=== PATIENT | female | born 1955 | race Caucasian/White ===

== ENCOUNTER → 2017-11-26 17:01 | Outpatient (CLI) | payer BC, SELFPAY ==
[2017-02-23 13:18] VITALS: BMI 26.2
[2017-02-23 16:57] VITALS: BP 128/72
[2017-11-26 18:34] LABS: Hematocrit 39.4 % (37-47); Hemoglobin 12.7 g/dl (12.0-15.0); Mean Corp Hgb Conc 32.2 g/gl (32-36); Mean Corpuscular Hgb 29.3 pg (27.0-32.0); Mean Corpuscular Volume 90.8 fL (81-99); Mean Platelet Vol. 10.5 fl (6.2-12.0); Platelet Count 278 K/mm3 (150-450); RBC Distribution Width CV 14.1 % (11.6-14.6); RBC Distribution Width SD 46.7 fl (35.1-43.9); Red Blood Count 4.34 M/mm3 (4.2-5.4); White Blood Count 7.7 K/mm3 (4.4-11.0)
[2017-11-26 18:39] LABS: Scan Indicated on CBC? Y/N NO
[2017-11-26 18:43] LABS: ALB/GLOB Ratio 1.2 RATIO (0.9-2.4); AST(SGOT) 14 U/L (15-37); Alanine Aminotransfer ALT/SGPT 25 U/L (13-56); Albumin, Serum 3.9 g/dL (3.2-5.0); Alkaline Phosphatase 79 U/L (45-117); Anion Gap 7 (5-15); BUN 15 mg/dL (7-18); BUN/Creat Ratio 23.1 RATIO (10-20); CRP < 2.90 mg/L (0.0-3.0); Chloride 103 mmol/L (98-107); Creatinine, Serum 0.65 mg/dL (0.55-1.02); EST Glomerular Filtration Rate 99 mL/min (>60); Est Glom Filt Rate - Afr Amer 120 mL/min (>60); Globulin 3.3 g/dL (2.2-4.2); Glucose 94 mg/dL (74-106); Potassium 3.8 mmol/L (3.5-5.1); Protein, Total 7.2 g/dL (6.4-8.2); Sodium Level 138 mmol/L (136-145)
== END ==
PROVIDERS: Family Provider Family Medicine; PCP Family Medicine; Visit Provider Internal Medicine Gastroenterology
DX: K51.90 Ulcerative colitis, unspecified, without complications (principal)
CPT/HCPCS: 36415; 80053; 85027; 86140

== ENCOUNTER → 2020-01-05 07:42 | Outpatient (CLI) | payer OTHER, SELFPAY ==
[2017-02-23 13:18] VITALS: BMI 26.2
[2020-01-05 10:28] LABS: ALB/GLOB Ratio 1.2 RATIO (0.9-2.4); AST(SGOT) 15 U/L (15-37); Alanine Aminotransfer ALT/SGPT 23 U/L (13-56); Albumin, Serum 3.8 g/dL (3.2-5.0); Alkaline Phosphatase 80 U/L (45-117); Anion Gap 4 (5-15); BUN 14 mg/dL (7-18); BUN/Creat Ratio 18.6 RATIO (10-20); Chloride 104 mmol/L (98-107); Cholesterol 206 mg/dL (200); Creatinine, Serum 0.75 mg/dL (0.55-1.02); EST Glomerular Filtration Rate 83 mL/min (>60); Est Glom Filt Rate - Afr Amer 100 mL/min (>60); Globulin 3.2 g/dL (2.2-4.2); Glucose 97 mg/dL (74-106); High Density Lipoprotein 40 mg/dL; Potassium 3.9 mmol/L (3.5-5.1); Sodium Level 137 mmol/L (136-145); Triglycerides 146 mg/dL; Very Low Density Lipoprotein 29 mg/dL (5-40)
== END ==
PROVIDERS: PCP Family Medicine; Referring Provider Family Medicine; Visit Provider Family Medicine
DX: I10 Essential (primary) hypertension (principal)
CPT/HCPCS: 36415; 80053; 80061

== ENCOUNTER 2020-01-22 09:10 | Emergency (ER) | payer OTHER, SELFPAY ==
[2020-01-22 09:12] VITALS: BP 141/88; PULSE 103; RESP 17; TEMP 37; O2SAT 97; BMI 26.2
[2020-01-22 09:36] VITALS: BP 134/58; PULSE 90; RESP 13; O2SAT 97
--- NOTE | 2020-01-22 09:45 | ED.DCSUM_ITS ---
- ER Visit Summary Date of Service: 01/22/20 Chief Complaint: Hypertension and chest pain History of Present Illness: The patient is a 64 F who presents with elevated blood pressure and chest pain. Patient states her blood pressure at home was up into the 160s. Patient states she has tightness and burning over the substernal area. Patient states this is been constant for the past 3 days. Patient states drinking Sprite improves her chest pain. Patient states she was recently started on Dulera and Zithromax by her primary care physician for bronchitis. Patient states her symptoms started after starting these medications. Patient states she was unable to contact her primary care physician regarding the side effects, so she presented to the emergency department. Physical Examination: Vital signs are stable. Patient is afebrile. Patient is in no acute distress. Oral mucosa is pink and moist. Neck is supple. Trachea is midline. There is no JVD noted. Heart was regular rate and rhythm. Lungs are clear and equal bilaterally. Abdomen is soft. Bowel sounds are normal. There is no tenderness. There is no rebound or guarding noted. Skin is warm dry. Cranial nerves II through XII are intact. There are no focal motor or sensory deficits noted. Extremities are intact. There is no calf tenderness or edema. Test Results: EKG shows a normal sinus rhythm with a rate of 81. There are no acute ST or T wave changes. There are no prior EKGs available for comparison. CBC shows a slight leukocytosis of 13.0. Comprehensive metabolic profile and troponin were normal. Urinalysis does not show any evidence of urinary tract infection. Portable chest x-ray does not show any acute cardiopulmonary process. This was interpreted by the radiologist and myself. Emergency Department Course and Treatment: Patient was advised of her findings. Patient was instructed to keep a log of her blood pressures. Patient was instructed to follow-up with her primary care physician in 3 to 5 days. Patient was instructed return if worse in any way. Patient understood and was agreeable with the plan. All questions were answered. Disposition: Discharge home Impression: 1. Hypertension 2. Chest pain This note was generated with [employer] software. It may contain incorrect words, spelling, and punctuation that were not noted in review of the chart prior to signing ED Disposition - Plan for ED Patient: Disposition: Home or Assisted Living Diagnosis: Hypertension, Chest pain Instructions: ED Hypertension Established Referrals: Kannan Lopes MD [Primary Care Provider] - 3-5 Days
--- NOTE | 2020-01-22 09:48 | RAD_ITS ---
STUDY: X-RAY CHEST REASON FOR EXAM: Female, 64 years old. CHEST DISCOMFORT TECHNIQUE: AP upright portable view. COMPARISON: None. FINDINGS: The lungs are clear and expanded. There is no demonstrated pleural abnormality. Normal size heart. Normal mediastinum and danyell. Normal visualized pulmonary arteries. Normal visualized aortic arch and descending thoracic aorta. Normal visualized thoracic spine. Normal visualized ribs, clavicles, and shoulders. There is no demonstrated abnormality of the visualized soft tissue structures of the upper abdomen. RAD/Chest 1 View (Portable) IMPRESSION: Normal x-ray examination of the chest. Electronically Signed: Mynor Bella MD at 10:55 EDT , Service support ,
--- NOTE | 2020-01-22 09:48 | EKG12_ITS ---
Test Reason : CHEST TIGHTNESS Blood Pressure : / mmHG Vent. Rate : 081 BPM Atrial Rate : 081 BPM P-R Int : 138 ms QRS Dur : 074 ms QT Int : 322 ms P-R-T Axes : 045 005 046 degrees QTc Int : 374 ms Normal sinus rhythm Septal infarct , age undetermined Abnormal ECG Confirmed by NICA TOTH, DARIELA ([id number]), dictionary editor ESTIVEN JOHNSON ([id number]) on 01/25/2020 1:52:27 PM Referred By: KARLIE Confirmed By:DARIELA YOUSIF MD
[2020-01-22] MEDS: 0.9% Normal Saline 1,000 ML 1000 ML IV (10:08)
[2020-01-22] MEDS: Mag Hydrox/Al Hydrox/Simeth 30 ML UDC PO (10:08)
[2020-01-22 10:24] LABS: Bacteria 0 SEEN /hpf (None Seen); Mucous, Urine 0 SEEN /hpf (<or=2+); Red Blood Cells-Urine 0 SEEN /hpf (0-5)
[2020-01-22 10:33] LABS: Absolute Lymphocyte Count 2.48 X10^3/uL (0.83-4.51); Absolute Neutrophil Count 9.6 X10^3/uL (2.0-7.7); Basophil# 0.05 X10^3/uL; Basophil% 0.4 % (0-1); Eosinophil# 0.12 X10^3/uL; Eosinophils% 0.9 % (0-5); Hematocrit 42.8 % (37-47); Hemoglobin 13.9 g/dL (12.0-15.0); Lymphocyte # 2.48 X10^3/ul (4.0); Lymphocyte % 19.1 % (19-41); Mean Corp Hgb Conc 32.5 g/dL (32-36); Mean Corpuscular Hgb 30.5 pg (27.0-32.0); Mean Corpuscular Volume 94.1 fL (81-99); Mean Platelet Vol. 9.8 fl (6.2-12.0); Monocyte% 5.4 % (0-10); NRBC Flagged by Analyzer 0 % (0-5); Neutrophil % 73.9 % (47-70); Platelet Count 345 K/mm3 (150-450); RBC Distribution Width CV 13.7 % (11.6-14.6); RBC Distribution Width SD 46.8 fl (35.1-43.9); Red Blood Count 4.55 M/mm3 (4.2-5.4)
[2020-01-22 10:34] LABS: Color, Urine Yellow (Yellow); Glucose, Dipstick Normal (Normal); Ketone-Dipstick Negative (Negative); Leukocyte Esterase-Dipstick 100 /ul (Negative); Nitrite-Dipstick Negative (Negative); Occult Blood-Urine Negative /ul (Negative); Protein-Dipstick Negative (Negative); Specific Gravity, Urine 1.005 (1.002-1.030); Urine Bilirubin Dipstick Negative (Negative); Urine Clarity Clear (Clear); Urine Urobilinogen Normal (Normal)
[2020-01-22 10:46] LABS: ALB/GLOB Ratio 1.2 RATIO (0.9-2.4); AST(SGOT) 37 U/L (15-37); Alanine Aminotransfer ALT/SGPT 76 U/L (13-56); Albumin, Serum 3.9 g/dL (3.2-5.0); Alkaline Phosphatase 79 U/L (45-117); Anion Gap 5 (5-15); BUN 9 mg/dL (7-18); BUN/Creat Ratio 14.2 RATIO (10-20); Calcium,Total 9.4 mg/dL (8.5-10.1); Chloride 106 mmol/L (98-107); Creatinine, Serum 0.63 mg/dL (0.55-1.02); EST Glomerular Filtration Rate 101 mL/min (>60); Est Glom Filt Rate - Afr Amer 122 mL/min (>60); Estimated Creatinine Clearance 72.29 ml/min; Globulin 3.3 g/dL (2.2-4.2); Glucose 103 mg/dL (74-106); Lipase 118 U/L (73-393); Potassium 4.2 mmol/L (3.5-5.1); Protein, Total 7.2 g/dL (6.4-8.2); Sodium Level 140 mmol/L (136-145)
[2020-01-22 11:01] LABS: Squamous Epithelial Cells - UA 0-5 SEEN /hpf (5-10); White Blood Cells 0-5 SEEN /hpf (0-5)
[2020-01-22 11:14] VITALS: BP 161/79; PULSE 82; RESP 22; O2SAT 99
[2020-01-22 13:38] VITALS: BP 129/92; PULSE 99; RESP 16; O2SAT 98
== END 2020-01-22 13:40 | disposition home or self-care (01) ==
PROVIDERS: Emergency Provider Emergency Medicine; PCP Family Medicine
DX: R07.89 Other chest pain (principal); I10 Essential (primary) hypertension; K21.9 Gastro-esophageal reflux disease without esophagitis; K51.90 Ulcerative colitis, unspecified, without complications; Z79.899 Other long term (current) drug therapy
CPT/HCPCS: 71045; 80053; 81001; 83690; 84484; 85025; 93005; 96360; 99285; J7030; A4216

== ENCOUNTER → 2020-08-16 | Outpatient (CLI) | payer OTHER, SELFPAY | END | disposition home or self-care (01) | LOC: LABSPEC 16:01 | PROVIDERS: PCP Family Medicine; Referring Provider Family Medicine; Visit Provider Family Medicine | DX: Z20.828 Contact with and (suspected) exposure to other viral communicable diseases (principal) | CPT/HCPCS: 87635; U0003 ==

== ENCOUNTER → 2020-09-19 15:37 | Outpatient (CLI) | payer OTHER, SELFPAY ==
--- NOTE | 2020-09-19 15:42 | RAD_ITS ---
STUDY: X-RAY CHEST REASON FOR EXAM: Female, 65 years old. pos Covid 5 weeks ago, still having sob, hx of asthma TECHNIQUE: PA and lateral views of the chest. COMPARISON: 01/22/2020. FINDINGS: The lungs are clear and expanded. There is no demonstrated pleural abnormality. Normal size heart. Normal mediastinum and danyell. Normal visualized pulmonary arteries. Normal visualized aortic arch and descending thoracic aorta. Normal visualized thoracic spine. Normal visualized ribs, clavicles, and shoulders. There is no demonstrated abnormality of the visualized soft tissue structures of the upper abdomen. RAD/Chest PA and Lateral IMPRESSION: Normal x-ray examination of the chest. Electronically Signed: Mar Bryan MD at 0:00 EST Tel , Service support ,
== END ==
LOC: MTLAB 15:40 → MTRAD 15:41
PROVIDERS: PCP Family Medicine; Referring Provider Family Medicine; Visit Provider Family Medicine
DX: R06.02 Shortness of breath (principal)
CPT/HCPCS: 71046

== ENCOUNTER → 2021-01-09 09:46 | Outpatient (CLI) | payer OTHER, SELFPAY ==
[2021-01-09 12:05] LABS: Hematocrit 39.8 % (37-47); Hemoglobin 12.7 g/dL (12.0-15.0); Mean Corp Hgb Conc 31.9 g/dL (32-36); Mean Corpuscular Hgb 29.6 pg (27.0-32.0); Mean Corpuscular Volume 92.8 fL (81-99); Platelet Count 342 K/mm3 (150-450); RBC Distribution Width CV 13.2 % (11.6-14.6); RBC Distribution Width SD 44.6 fl (35.1-43.9); Red Blood Count 4.29 M/mm3 (4.2-5.4); White Blood Count 8.7 K/mm3 (4.4-11.0)
== END ==
PROVIDERS: PCP Family Medicine; Referring Provider Family Medicine; Visit Provider Family Medicine
DX: L40.50 Arthropathic psoriasis, unspecified (principal)
CPT/HCPCS: 36415; 85027

== ENCOUNTER → 2021-07-19 08:42 | Outpatient (CLI) | payer OTHER, SELFPAY ==
[2021-07-19 10:07] LABS: Absolute Lymphocyte Count 2.08 X10^3/uL (0.83-4.51); Absolute Neutrophil Count 3.6 X10^3/uL (2.0-7.7); Basophil# 0.05 X10^3/uL; Basophil% 0.8 % (0-1); Eosinophil# 0.14 X10^3/uL; Eosinophils% 2.2 % (0-5); Hematocrit 40.6 % (37-47); Hemoglobin 13.2 g/dL (12.0-15.0); Lymphocyte # 2.08 X10^3/ul (0.83-4.51); Lymphocyte % 33.2 % (19-41); Mean Corp Hgb Conc 32.5 g/dL (32-36); Mean Corpuscular Hgb 29.6 pg (27.0-32.0); Mean Platelet Vol. 10.8 fl (6.2-12.0); Monocyte# 0.38 X10^3/uL; Monocyte% 6.1 % (0-10); NRBC Flagged by Analyzer 0 % (0-5); Neutrophil % 57.5 % (47-70); Platelet Count 299 K/mm3 (150-450); RBC Distribution Width CV 13.6 % (11.6-14.6); Red Blood Count 4.46 M/mm3 (4.2-5.4); White Blood Count 6.3 K/mm3 (4.4-11.0)
[2021-07-19 10:32] LABS: ALB/GLOB Ratio 1.1 RATIO (0.9-2.4); AST(SGOT) 15 U/L (15-37); Alanine Aminotransfer ALT/SGPT 22 U/L (13-56); Albumin, Serum 3.9 g/dL (3.2-5.0); Alkaline Phosphatase 81 U/L (45-117); Anion Gap 7 (5-15); BUN 15 mg/dL (7-18); BUN/Creat Ratio 19.9 RATIO (10-20); Calcium,Total 9.3 mg/dL (8.5-10.1); Chloride 107 mmol/L (98-107); Cholesterol 220 mg/dL (200); Creatinine, Serum 0.76 mg/dL (0.55-1.02); EST Glomerular Filtration Rate 82 mL/min (>60); Est Glom Filt Rate - Afr Amer 99 mL/min (>60); Globulin 3.4 g/dL (2.2-4.2); Glucose 104 mg/dL (74-106); High Density Lipoprotein 50 mg/dL; Potassium 4.1 mmol/L (3.5-5.1); Protein, Total 7.3 g/dL (6.4-8.2); Sodium Level 141 mmol/L (136-145); Triglycerides 74 mg/dL; Very Low Density Lipoprotein 15 mg/dL (5-40)
== END ==
PROVIDERS: PCP Family Medicine; Referring Provider Family Medicine; Visit Provider Family Medicine
DX: E78.00 Pure hypercholesterolemia, unspecified (principal)
CPT/HCPCS: 36415; 80053; 80061; 85025

== ENCOUNTER → 2021-09-26 07:41 | Outpatient (CLI) | payer MEDICARE, SELFPAY ==
--- NOTE | 2021-09-26 07:45 | US_ITS ---
STUDY: THYROID ULTRASOUND REASON FOR EXAM: Female, 66 years old. Thyroid nodule. TECHNIQUE: Ultrasound evaluation of the thyroid was performed with real-time and static cota-scale imaging. COMPARISON: None. FINDINGS: RIGHT LOBE: The right lobe of the thyroid gland measures 4.9 cm x 1.7 cm x 1.9 cm. There is a homogeneous echotexture. There is a 3 mm x 3 mm x 2 mm hypoechoic solid nodule in the upper pole. This is also evidence of a 5 mm x 5 mm x 3 mm solid and cystic nodule in the midportion of the right lobe. LEFT LOBE: The left lobe of the thyroid gland measures 4.8 cm x 1.9 cm x 1.7 cm. There is a homogeneous echotexture. There is a 4 mm x 4 mm x 3 mm solid hypoechoic nodule in the upper pole as well as a 4 mm x 3 mm x 2 mm solid and cystic nodule in the midpole. ISTHMUS: The isthmus measures 3 mm. The regional lymph nodes are normal. US/Thyroid IMPRESSION: There are 2 subcentimeter nodules in each lobe of the thyroid. Electronically Signed: Duc Hayes MD at 15:41 EST , Service support ,
== END ==
PROVIDERS: PCP Family Medicine; Referring Provider Family Medicine; Visit Provider Family Medicine
DX: E04.1 Nontoxic single thyroid nodule (principal)
CPT/HCPCS: 76536

== ENCOUNTER → 2021-10-11 14:01 | Outpatient (CLI) | payer MEDICARE, SELFPAY ==
--- NOTE | 2021-10-11 14:03 | BI_ITS ---
MAMMOGRAPHY - BILATERAL SCREENING 3-D TOMOSYNTHESIS REASON FOR EXAM: Female, 66 years old. SCREENING PERTINENT HISTORY: No significant family history. TECHNIQUE: 2-D mammograms and 3-D Tomosynthesis of the breast (s) were performed. CAD was performed. COMPARISON: None. FINDINGS: The breast composition is heterogeneously dense that can obscure small breast masses. Scattered benign calcifications are seen. No dense spiculated masses or suspicious microcalcifications are identified. No architectural distortion is identified. There is no skin thickening or retraction. There has been no significant change since the prior study. BI/SCRN MAMM (CAD)W/CAREY BILAT IMPRESSION: No mammographic signs of malignancy. Routine yearly mammograms recommended. ASSESSMENT CATEGORY: BIRADS Category 1: Negative. A letter regarding these results will be sent to the patient by the facility within 30 days. FOLLOW UP RECOMMENDATION: Yearly follow up mammogram recommended. (A) Approximately 10% of breast cancers are not detected by mammography. A normal mammogram should not delay biopsy of a clinically suspicious abnormality. Electronically Signed: Pop Vazquez MD at 8:38 EST Tel , Service support ,
== END ==
PROVIDERS: PCP Family Medicine; Referring Provider Family Medicine; Visit Provider Family Medicine
DX: Z12.31 Encounter for screening mammogram for malignant neoplasm of breast (principal)
CPT/HCPCS: 77063; 77067

== ENCOUNTER 2021-10-30 10:44 | Outpatient (CLI) | payer MEDICARE, SELFPAY ==
--- NOTE | 2021-10-30 10:51 | BD_ITS ---
STUDY: DUAL ENERGY X-RAY ABSORPTIOMETRY / DXA REASON FOR EXAM: Female, 66 years old. M85.89 TECHNIQUE: Bone Mineral Density (BMD) measurements of lumbar spine and bilateral hips were obtained. COMPARISON: None. FINDINGS: Lumbar Spine (L1-L4): g/cm2 (0.885) / T-score (-0.9) / Z-score (0.8) Findings are suggestive of normal bone density with a low fracture risk. Left Femur Total: g/cm2 (0.687) / T-score (-2.1) / Z-score (-0.9) Left Femoral Neck: g/cm2 (0.509) / T-score (-3.1) / Z-score (-1.5) Right Femur Total: g/cm2 (0.725) / T-score (-1.8) / Z-score (-0.5) Right Femoral Neck: g/cm2 (0.544) / T-score (-2.7) / Z-score (-1.2) BD/Dexa Bone Density Study IMPRESSION: The patient is considered osteoporotic as outlined below according to World Asim Organization (WHO) criteria with a high fracture risk. Reference Information: The T-score is the number of standard deviations above or below the standard which is normal for young adults at their peak bone mineral density. The World Health Organization (WHO) interprets the T-scores as follows: Above -1 Normal bone density Between -1 and -2.5 Osteopenia Equal to / or below -2.5 Osteoporosis As a practical clinical guideline, osteopenia may be graded as follows: Mild -1 through -1.5 Moderate -1.6 through -2.0 Severe -2.1 through -2.4 The Z-score is the number of standard deviations above or below age-matched controls. A Z-score of less than -1.5 would be considered abnormal. References: 1. NIH Osteoporosis and Related Bone Diseases www osteo.org 2. International Society for Clinical Densitometry www iscd.org 3. National Osteoporosis Foundation www nof.org Electronically Signed: Duc Hayes MD at 15:26 EST , Service support ,
== END 2021-10-30 23:59 | disposition short-term general hospital (02) ==
LOC: OPBD 10:45
PROVIDERS: PCP Family Medicine; Visit Provider Family Medicine
DX: M81.0 Age-related osteoporosis without current pathological fracture (principal); M85.89 Other specified disorders of bone density and structure, multiple sites
CPT/HCPCS: 77080

== ENCOUNTER 2022-01-08 07:00 | Outpatient (CLI) | payer MEDICARE, SELFPAY ==
[2022-01-08 07:07] LABS: Mucous, Urine 0 SEEN /hpf (<or=2+); Red Blood Cells-Urine 0 SEEN /hpf (0-5)
[2022-01-08 09:45] LABS: Absolute Lymphocyte Count 2.48 X10^3/uL (0.83-4.51); Basophil# 0.04 X10^3/uL; Basophil% 0.6 % (0-1); Eosinophil# 0.32 X10^3/uL; Eosinophils% 5.1 % (0-5); Hematocrit 40.3 % (37-47); Hemoglobin 13.3 g/dL (12.0-15.0); Lymphocyte # 2.48 X10^3/ul (0.83-4.51); Lymphocyte % 39.7 % (19-41); Mean Corpuscular Hgb 30.2 pg (27.0-32.0); Mean Corpuscular Volume 91.6 fL (81-99); Mean Platelet Vol. 10.5 fl (6.2-12.0); Monocyte# 0.43 X10^3/uL; Monocyte% 6.9 % (0-10); NRBC Flagged by Analyzer 0 % (0-5); Neutrophil # 2.97 X10^3/uL (2.7-7.7); Neutrophil % 47.5 % (47-70); Platelet Count 300 K/mm3 (150-450); RBC Distribution Width CV 13.8 % (11.6-14.6); RBC Distribution Width SD 46.9 fl (35.1-43.9); White Blood Count 6.3 K/mm3 (4.4-11.0)
[2022-01-08 09:50] LABS: Color, Urine Yellow (Yellow); Glucose, Dipstick Normal (Normal); Ketone-Dipstick Negative (Negative); Leukocyte Esterase-Dipstick 500 /ul (Negative); Nitrite-Dipstick Negative (Negative); Occult Blood-Urine Negative /ul (Negative); Protein-Dipstick Negative (Negative); Urine Bilirubin Dipstick Negative (Negative); Urine Clarity Sl. Cloudy (Clear); Urine Urobilinogen Normal (Normal)
[2022-01-08 09:57] LABS: Vitamin D,25 Hydroxy 37.3 ng/mL
[2022-01-08 10:01] LABS: Bacteria RARE /hpf (None Seen); Squamous Epithelial Cells - UA 0-5 SEEN /hpf (5-10); White Blood Cells 0-5 SEEN /hpf (0-5)
[2022-01-08 10:11] LABS: ALB/GLOB Ratio 1.3 RATIO (0.9-2.4); AST(SGOT) 15 U/L (15-37); Alanine Aminotransfer ALT/SGPT 25 U/L (13-56); Albumin, Serum 4.1 g/dL (3.2-5.0); Alkaline Phosphatase 70 U/L (45-117); Anion Gap 4 (5-15); BUN 14 mg/dL (7-18); Chloride 106 mmol/L (98-107); Cholesterol 228 mg/dL (200); Creatinine, Serum 0.64 mg/dL (0.55-1.02); EST Glomerular Filtration Rate 100 mL/min (>60); Est Glom Filt Rate - Afr Amer 121 mL/min (>60); Globulin 3.1 g/dL (2.2-4.2); Glucose 98 mg/dL (74-106); High Density Lipoprotein 46 mg/dL; Potassium 3.9 mmol/L (3.5-5.1); Protein, Total 7.2 g/dL (6.4-8.2); Sodium Level 139 mmol/L (136-145); Thyroid Stim Hormone (TSH) 1.14 uIU/mL (0.358-3.74); Triglycerides 111 mg/dL; Very Low Density Lipoprotein 22 mg/dL (5-40)
== END 2022-01-08 23:59 | disposition home or self-care (01) ==
PROVIDERS: PCP Family Medicine; Referring Provider Family Medicine; Visit Provider Family Medicine
DX: I10 Essential (primary) hypertension (principal); E78.00 Pure hypercholesterolemia, unspecified; M85.80 Other specified disorders of bone density and structure, unspecified site
CPT/HCPCS: 36415; 80053; 80061; 81001; 82306; 84443; 85025

== ENCOUNTER 2022-01-10 20:41 | Emergency (ER) | payer MEDICARE, SELFPAY ==
[2022-01-10 20:43] VITALS: BP 161/127; PULSE 91; RESP 16; TEMP 36.1; O2SAT 93; BMI 27.8
--- NOTE | 2022-01-10 21:00 | EX.ED.VISEXT ---
HPI History of Present Illness Chief Complaint: Bite Narrative Narrative: Patient presents with injury to her right hand. 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 She went to reach for the cat who was frightened, and it bit her on the dorsum of the right hand. She has sustained cat bites previously. Currently, she is taking amoxicillin for her tooth infection. She presents to the emergency department because of swelling of her right hand after the cat bite. She denies any fevers or chills. No red streaking up her arms. She noticed that her fingers may have been swollen. She states that the cat bite was deeper, but she has already cleansed the area and achieved hemostasis. Her last tetanus shot was in the last 5 years. She denies other injuries. She presents for evaluation of a cat bite to the dorsum of her right hand. She is right-hand dominant. ROS ROS ED ROS Narrative Constitutional: No fever, no chills. HEENT: No sore throat. No neck pain. No loss of vision. No rhinorrhea. Cardiovascular: No chest pain. No palpitations. No pedal edema. Respiratory: No cough, no shortness of breath. Abdominal: No abdominal pain. No nausea. No vomiting. Genitourinary: No dysuria. No hematuria. Musculoskeletal: No myalgias. No arthralgias. Neurologic: No headaches. No dizziness. No lightheadedness. Skin: No rash. No change in color. Cat bite to dorsum of right hand. Psychiatric: No depression. No anxiety. PFSH PFSH Home Medications lisinopril 10 mg PO DAILY 07/25/13 [History Last Taken 02/20/17] mesalamine [Asacol] 800 mg PO TID 07/25/13 [History Last Taken 02/20/17] montelukast 10 mg PO DAILY 07/25/13 [History Last Taken 02/20/17] fexofenadine [Soni Allergy] 60 mg PO DAILY 02/20/17 [History Last Taken 02/20/17] azithromycin 250 mg PO UD 01/22/20 [History Last Taken Unknown] amoxicillin 500 mg PO Q6H 01/10/22 [History Last Taken Unknown] amoxicillin-pot clavulanate 1 tab PO BID #20 tab 01/10/22 [Rx Last Taken Unknown] naproxen 500 mg PO BID 01/10/22 [History Last Taken Unknown] Allergy/AdvReac Type Severity Reaction Status Date / Time No Known Allergies Allergy Verified 01/10/22 20:42 Social History Smoking Status: Never smoker EXAM Physical Exam Narrative Exam Narrative: Afebrile. Vital signs noted. HEENT: Normocephalic. Atraumatic. PERRL, EOMI. Neck soft and supple. No point tenderness or step off. Cardiovascular: Regular rate and rhythm. No murmurs, rubs, or gallops appreciated. Respiratory: No tachypnea. Lungs clear to auscultation bilaterally. Gastrointestinal: Abdomen soft, nontender, with normoactive bowel sounds. No rebound or guarding. Neurological: Awake. Alert. Nonfocal, nonlateralizing. Skin: No rash. Normal color. No pallor. +1 cm laceration to dorsum of right hand, no active bleeding. Mild swelling. Full range of motion of fingers. Able to oppose thumb. No lymphangitis. No axillary lymphadenopathy. Full range of motion of wrist. Musculoskeletal: No pedal edema. Full range of motion extremities. Const Vital Signs: 01/10/22 20:43 Temperature 96.9 F L Temperature Source Temporal Pulse Rate 91 Respiratory Rate 16 Blood Pressure 161/127 H Blood Pressure Mean 138 Pulse Ox 93 Oxygen Delivery Method Room Air MDM MDM MDM Narrative Medical decision making narrative: As the recommended treatment/antibiotic is Augmentin, I will change her amoxicillin 500 mg to Augmentin 875 mg orally for the next 10 days. She was given her first dose of medication here. In review of her tetanus immunization, her last was almost 5 years ago in April, within the window. Although this is a laceration, as it is a bite, I do not want to close the wound. She will continue her bandaging and have her wound evaluated in the next 1 to 2 days by her primary care physician. I do not feel that she requires admission for antibiotics and that she merits outpatient treatment first. Patient agrees. She will return with any increased swelling, fever, red streaking up her arm, new or worsening symptoms. Disposition is discharged home in stable condition. Discharge Plan Triage Chief Complaint: Bite ED Provider: Mynor King Dx/Rx/DC Orders Clinical Impression: Cat bite of right hand Prescriptions: New amoxicillin-pot clavulanate 875-125 mg tablet 1 tab PO BID Qty: 20 RF: 0 No Action lisinopril 10 MG tablet 10 mg PO DAILY RF: 0 montelukast 10 MG tablet 10 mg PO DAILY RF: 0 mesalamine [Delzicol] 400 MG tablet 800 mg PO TID RF: 0 fexofenadine [Soni Allergy] 60 MG tablet 60 mg PO DAILY RF: 0 azithromycin 250 MG tablet 250 mg PO UD RF: 0 amoxicillin 500 mg capsule 500 mg PO Q6H RF: 0 naproxen 500 mg tablet 500 mg PO BID RF: 0 Primary Care Provider: Kannan Rizvi Referrals: Kannan Rizvi MD [Primary Care Provider] - 2 Days for wound check Disposition Disposition: Home, Self Care
[2022-01-10] MEDS: Amox/Clavulanate 875 MG Tablet PO (21:04)
[2022-01-10 21:05] VITALS: RESP 18
== END 2022-01-10 21:10 | disposition home or self-care (01) ==
LOC: ED 21:06
PROVIDERS: Emergency Provider Emergency Medicine; PCP Family Medicine; Visit Provider Emergency Medicine
DX: S60.571A Other superficial bite of hand of right hand, initial encounter (principal); W55.01XA Bitten by cat, initial encounter; Y93.9 Activity, unspecified; Y92.9 Unspecified place or not applicable; K04.7 Periapical abscess without sinus
CPT/HCPCS: 99283

== ENCOUNTER → 2022-04-16 | Outpatient (CLI) | payer MEDICARE, SELFPAY ==
[2022-04-16 08:45] LABS: Bacteria 0 SEEN /hpf (None Seen); Mucous, Urine 0 SEEN /hpf (<or=2+); Red Blood Cells-Urine 0 SEEN /hpf (0-5)
[2022-04-16 12:19] LABS: Color, Urine Yellow (Yellow); Glucose, Dipstick Normal (Normal); Ketone-Dipstick Negative (Negative); Leukocyte Esterase-Dipstick 500 /ul (Negative); Nitrite-Dipstick Negative (Negative); Occult Blood-Urine 10 /ul (Negative); Protein-Dipstick Negative (Negative); Specific Gravity, Urine 1.015 (1.002-1.030); Urine Bilirubin Dipstick Negative (Negative); Urine Clarity Clear (Clear); Urine Urobilinogen Normal (Normal)
[2022-04-16 12:20] LABS: Absolute Lymphocyte Count 1.96 X10^3/uL (0.83-4.51); Absolute Neutrophil Count 3.8 X10^3/uL (2.0-7.7); Basophil# 0.04 X10^3/uL; Basophil% 0.6 % (0-1); Eosinophil# 0.12 X10^3/uL; Eosinophils% 1.9 % (0-5); Hematocrit 39.3 % (37-47); Hemoglobin 12.7 g/dL (12.0-15.0); Lymphocyte # 1.96 X10^3/ul (0.83-4.51); Lymphocyte % 31.4 % (19-41); Mean Corp Hgb Conc 32.3 g/dL (32-36); Mean Corpuscular Volume 92.9 fL (81-99); Monocyte# 0.34 X10^3/uL; Monocyte% 5.4 % (0-10); NRBC Flagged by Analyzer 0 % (0-5); Neutrophil # 3.78 X10^3/uL (2.7-7.7); Neutrophil % 60.5 % (47-70); Platelet Count 322 K/mm3 (150-450); RBC Distribution Width CV 13.7 % (11.6-14.6); RBC Distribution Width SD 46.5 fl (35.1-43.9); Red Blood Count 4.23 M/mm3 (4.2-5.4); White Blood Count 6.3 K/mm3 (4.4-11.0)
[2022-04-16 12:33] LABS: Squamous Epithelial Cells - UA 0-5 SEEN /hpf (5-10); White Blood Cells 0-5 SEEN /hpf (0-5)
[2022-04-16 12:39] LABS: Vitamin D,25 Hydroxy 60.1 ng/mL
[2022-04-16 12:50] LABS: ALB/GLOB Ratio 1.2 RATIO (0.9-2.4); AST(SGOT) 14 U/L (15-37); Alanine Aminotransfer ALT/SGPT 18 U/L (13-56); Albumin, Serum 3.8 g/dL (3.2-5.0); Alkaline Phosphatase 64 U/L (45-117); Anion Gap 8 (5-15); BUN 14 mg/dL (7-18); BUN/Creat Ratio 20.5 RATIO (10-20); Calcium,Total 9.1 mg/dL (8.5-10.1); Chloride 108 mmol/L (98-107); Cholesterol 247 mg/dL (200); Creatinine, Serum 0.68 mg/dL (0.55-1.02); EST Glomerular Filtration Rate 92 mL/min (>60); Est Glom Filt Rate - Afr Amer 111 mL/min (>60); Globulin 3.2 g/dL (2.2-4.2); Glucose 101 mg/dL (74-106); High Density Lipoprotein 46 mg/dL; Potassium 4.2 mmol/L (3.5-5.1); Sodium Level 141 mmol/L (136-145); Triglycerides 110 mg/dL; Very Low Density Lipoprotein 22 mg/dL (5-40)
== END | disposition home or self-care (01) ==
LOC: MFPLAB 08:38
PROVIDERS: PCP Family Medicine; Visit Provider Family Medicine
DX: M81.0 Age-related osteoporosis without current pathological fracture (principal); I10 Essential (primary) hypertension; E78.00 Pure hypercholesterolemia, unspecified
CPT/HCPCS: 36415; 80053; 80061; 81001; 82306; 85025

== ENCOUNTER 2022-09-19 08:38 | Outpatient (CLI) | payer MEDICARE, SELFPAY ==
[2022-09-19 08:47] LABS: Bacteria 0 SEEN /hpf (None Seen); Mucous, Urine 0 SEEN /hpf (<or=2+); Red Blood Cells-Urine 0 SEEN /hpf (0-5)
[2022-09-19 10:27] LABS: Absolute Lymphocyte Count 2.27 X10^3/uL (0.83-4.51); Basophil# 0.05 X10^3/uL; Basophil% 0.5 % (0-1); Eosinophil# 0.16 X10^3/uL; Eosinophils% 1.6 % (0-5); Hematocrit 41.6 % (37-47); Hemoglobin 13.2 g/dL (12.0-15.0); Lymphocyte # 2.27 X10^3/ul (0.83-4.51); Lymphocyte % 22.5 % (19-41); Mean Corp Hgb Conc 31.7 g/dL (32-36); Mean Corpuscular Hgb 29.3 pg (27.0-32.0); Mean Corpuscular Volume 92.4 fL (81-99); Mean Platelet Vol. 10.9 fl (6.2-12.0); Monocyte# 0.55 X10^3/uL; Monocyte% 5.4 % (0-10); NRBC Flagged by Analyzer 0 % (0-5); Neutrophil # 7.04 X10^3/uL (2.7-7.7); Neutrophil % 69.6 % (47-70); Platelet Count 314 K/mm3 (150-450); RBC Distribution Width CV 13.1 % (11.6-14.6); RBC Distribution Width SD 44.7 fl (35.1-43.9); White Blood Count 10.1 K/mm3 (4.4-11.0)
[2022-09-19 10:44] LABS: Color, Urine Yellow (Yellow); Glucose, Dipstick Normal (Normal); Ketone-Dipstick Negative (Negative); Leukocyte Esterase-Dipstick 25 /ul (Negative); Nitrite-Dipstick Negative (Negative); Occult Blood-Urine Negative /ul (Negative); Protein-Dipstick 15 mg/dl (Negative); Urine Bilirubin Dipstick Negative (Negative); Urine Clarity Sl. Cloudy (Clear); Urine Urobilinogen Normal (Normal)
[2022-09-19 10:52] LABS: Squamous Epithelial Cells - UA 0-5 SEEN /hpf (5-10); White Blood Cells 0-5 SEEN /hpf (0-5)
[2022-09-19 10:59] LABS: ALB/GLOB Ratio 1.4 RATIO (0.9-2.4); AST(SGOT) 12 U/L (15-37); Alanine Aminotransfer ALT/SGPT 23 U/L (13-56); Albumin, Serum 4.1 g/dL (3.2-5.0); Alkaline Phosphatase 72 U/L (45-117); Anion Gap 8 (5-15); BUN 18 mg/dL (7-18); Calcium,Total 9.2 mg/dL (8.5-10.1); Chloride 106 mmol/L (98-107); Cholesterol 177 mg/dL (200); Creatinine, Serum 0.72 mg/dL (0.55-1.02); EST Glomerular Filtration Rate 86 mL/min (>60); Est Glom Filt Rate - Afr Amer 104 mL/min (>60); Globulin 2.9 g/dL (2.2-4.2); Glucose 97 mg/dL (74-106); High Density Lipoprotein 56 mg/dL; Potassium 4.4 mmol/L (3.5-5.1); Sodium Level 140 mmol/L (136-145); Triglycerides 84 mg/dL; Very Low Density Lipoprotein 17 mg/dL (5-40)
[2022-09-19 11:39] LABS: Vitamin D,25 Hydroxy 56.6 ng/mL
== END 2022-09-19 23:59 | disposition home or self-care (01) ==
LOC: MFPLAB 08:42
PROVIDERS: PCP Family Medicine; Referring Provider Family Medicine; Visit Provider Family Medicine
DX: I10 Essential (primary) hypertension (principal); E78.00 Pure hypercholesterolemia, unspecified; M81.0 Age-related osteoporosis without current pathological fracture
CPT/HCPCS: 36415; 80053; 80061; 81001; 82306; 85025

== ENCOUNTER → 2022-09-27 | Outpatient (CLI) | payer MEDICARE, SELFPAY ==
[2022-09-27 10:27] LABS: Anion Gap 6 (5-15); BUN 17 mg/dL (7-18); BUN/Creat Ratio 23.7 RATIO (10-20); Calcium,Total 9.4 mg/dL (8.5-10.1); Chloride 106 mmol/L (98-107); Creatinine, Serum 0.72 mg/dL (0.55-1.02); EST Glomerular Filtration Rate 86 mL/min (>60); Est Glom Filt Rate - Afr Amer 105 mL/min (>60); Glucose 108 mg/dL (74-106); Potassium 4.3 mmol/L (3.5-5.1); Sodium Level 139 mmol/L (136-145)
== END | disposition home or self-care (01) ==
LOC: MFPLAB 08:16
PROVIDERS: PCP Family Medicine; Referring Provider Family Medicine; Visit Provider Family Medicine
DX: I10 Essential (primary) hypertension (principal)
CPT/HCPCS: 36415; 80048

== ENCOUNTER 2022-12-28 16:30 | Emergency (ER) | payer MEDICARE, SELFPAY ==
[2022-12-28 16:31] VITALS: BP 136/88; PULSE 115; RESP 18; TEMP 37.2; O2SAT 100; BMI 27.8
[2022-12-28 16:38] VITALS: BP 120/110; PULSE 110; RESP 20; O2SAT 98
--- NOTE | 2022-12-28 17:25 | EX.ED.DYSGE1 ---
HPI <CASPER Ramirez - Last Filed: 12/28/22 18:36> History of Present Illness Chief Complaint: Shortness of Breath Narrative Narrative: Patient is a 67-year-old female with history of hypertension, hyperlipidemia, asthma who presents to the [facility] with 6 weeks of worsening cough, increased shortness of breath. Patient has been seen 3 separate times. Patient was placed on 2 rounds of azithromycin, 1 round of prednisone. Patient states today, she continues to cough, feeling congestion in her chest and she is here for reevaluation. She has not had a chest x-ray, and she would like one today. She denies any fever or chills. Denies any nausea or vomiting. Patient denies any recent travel, denies any leg pain. Denies any history of blood clots in the legs or lungs. [facility] <CASPER Ramirez - Last Filed: 12/28/22 18:36> [facility] Medical History (Updated 12/28/22 @ 16:41 by Jordyn Hinds) Asthma HTN (hypertension) Home Medications lisinopril 10 mg tablet 10 mg PO DAILY 07/25/13 [History Last Taken 02/20/17] mesalamine 400 mg capsule (with delayed release tablets inside) (Delzicol) 800 mg PO TID 07/25/13 [History Last Taken 02/20/17] montelukast 10 mg tablet 10 mg PO DAILY 07/25/13 [History Last Taken 02/20/17] fexofenadine 60 mg tablet (Soni Allergy) 60 mg PO DAILY 02/20/17 [History Last Taken 02/20/17] azithromycin 250 mg tablet 250 mg PO UD 01/22/20 [History Last Taken Unknown] amoxicillin 500 mg capsule 500 mg PO Q6H 01/10/22 [History Last Taken Unknown] amoxicillin 875 mg-potassium clavulanate 125 mg tablet 1 tab PO BID #20 tabs 01/10/22 [Rx Last Taken Unknown] naproxen 500 mg tablet 500 mg PO BID 01/10/22 [History Last Taken Unknown] fluticasone 250 mcg-salmeterol 50 mcg/dose blistr powdr for inhalation (Advair Diskus) 1 inh inhalation BID #60 ea 12/28/22 [Rx Last Taken Unknown] prednisone 10 mg tablets in a dose pack 10 mg PO QODAY #48 tabs 12/28/22 [Rx Last Taken Unknown] Allergy/AdvReac Type Severity Reaction Status Date / Time No Known Allergies Allergy Verified 12/28/22 16:31 Family History (Updated 12/28/22 @ 16:42 by Jordyn Hinds) Mother Breast cancer Father COPD (chronic obstructive pulmonary disease) Surgical History (Updated 12/28/22 @ 16:41 by Jordyn Hinds) H/O tubal ligation Hx of appendectomy Previous back surgery Social History (Updated 12/28/22 @ 16:42 by Jordyn Hinds) housing: house Smoking Status: Never smoker ROS <CASPER Ramirez - Last Filed: 12/28/22 18:36> ROS ED ROS Narrative Constitutional: Negative for fever, chills, weight loss, weakness Eyes: Negative for vision loss, vision change, double vision ENT: Negative for any sore throat, ear pain, congestion Cardiovascular: Negative for any chest pain, tightness, palpitations Respiratory: Negative for any hemoptysis, dyspnea on exertion, orthopnea. Positive for cough, sputum production, dyspnea Gastrointestinal: Negative for any abdominal pain, nausea, vomiting, diarrhea, constipation, blood in stool, blood in vomit : Negative for any urinary frequency, dysuria, retention, blood in urine Muscle skeletal: Negative for any muscle joint pain, stiffness, myalgias, arthralgias, neck pain, back pain Neurological: Negative for any headache, syncope, numbness or tingling, dizziness Skin: Negative for any rashes, lumps, itching, abrasions, lacerations Psychiatric: Negative for any depression, anxiety, stress, suicidal ideation, homicidal ideation Hematologic: Negative for any easy bruising, excessive bruising, easy bleeding Allergies: Negative for any eczema, hives, rash EXAM <CASPER Ramirez - Last Filed: 12/28/22 18:36> Physical Exam Narrative Exam Narrative: Vital signs reviewed. Patient is tachycardic with a heart rate of 105, patient's pulse oxygenation is 100. Patient appears generally well. HEET: Head normocephalic atraumatic, TMs clear bilaterally. Posterior pharynx is clear, moist mucous membranes. Nares clear bilaterally. Neck: Supple with no lymphadenopathy or tenderness. No signs of meningismus, negative jolt sign. Cardiac: Regular rate and rhythm no murmurs gallops or rubs, equal peripheral pulses bilaterally. Respiratory: Patient has expiratory wheezing to bilateral upper lungs,, patient's left lower lobe has some rales, rhonchorous sounds worse on the left than the right. No chest tenderness. Abdomen: Soft, nontender, nondistended. No abdominal bruit or pulsatile masses. No hepatosplenomegaly Extremities: No peripheral edema, no signs of gross trauma or deformity. Active full range of motion of all extremities. Neuro: Cranial nerves II through XII intact, no focal neurological deficits. Skin: Clean dry and intact with no rash, purpura, petechiae, vesicles or pustules. Backs/flank: No CVA tenderness, no midline spinal tenderness, no deformity. Psych: Normal mood and affect. No SI, HI or acute psychosis. Const Vital Signs: 12/28/22 16:31 12/28/22 16:38 12/28/22 17:46 Temperature 99 F Temperature Source Temporal Pulse Rate 115 H 110 H 110 H Respiratory Rate 18 20 H 16 Respiratory Pattern Normal Blood Pressure 136/88 H 120/110 H Blood Pressure Mean 104 113 Pulse Ox 100 98 Oxygen Delivery Method Room Air Room Air 12/28/22 18:49 12/28/22 18:49 Temperature Temperature Source Pulse Rate Respiratory Rate 16 16 Respiratory Pattern Blood Pressure Blood Pressure Mean Pulse Ox 98 98 Oxygen Delivery Method Room Air <Dr. Juan Pablo Porter MD - Last Filed: 12/28/22 19:49> Physical Exam Const Vital Signs: 12/28/22 16:31 12/28/22 16:38 12/28/22 17:46 Temperature 99 F Temperature Source Temporal Pulse Rate 115 H 110 H 110 H Respiratory Rate 18 20 H 16 Respiratory Pattern Normal Blood Pressure 136/88 H 120/110 H Blood Pressure Mean 104 113 Pulse Ox 100 98 Oxygen Delivery Method Room Air Room Air 12/28/22 18:49 12/28/22 18:49 Temperature Temperature Source Pulse Rate Respiratory Rate 16 16 Respiratory Pattern Blood Pressure Blood Pressure Mean Pulse Ox 98 98 Oxygen Delivery Method Room Air MDM <CASPER Ramirez - Last Filed: 12/28/22 18:36> MDM Radiography Diagnostic Testing: Clinical Impression(s) from Imaging Studies Chest X-Ray 12/28/22 18:12 IMPRESSION: Question right upper lobe nodule versus calcification from overlying costocartilaginous junction. No other interval change. Electronically Signed: José Miguel Finch DO at 18:57 EST Reading Location ID and State: [address] [place] [address] Tel [phone], Service support , Differential Diagnosis Chest pain/SOB: pneumonia and COPD Differential Diagnosis: Pneumonia Why less likely: Length of illness, negative for any fever or chills Differential Diagnosis: Pneumothorax Why less likely: Radiology evidence. Treatment and Re-Evaluation :: All radiologic examinations were read, reviewed by the emergency department attending. From these reads, a plan of care will be put in place. Patient appears generally well, patient appears nontoxic, vital signs are stable. Patient presents to the emergency department with complaints of cough that has been ongoing for the last 6 weeks. She has had 2 rounds of antibiotics, run round of short steroids. Patient did receive breathing treatment secondary to the rhonchorous breath sounds. She states that this did help. Patient did receive a two-view chest x-ray, this showed no acute infiltrate, no consolidation. At this time, secondary to the length of time the patient has been having pulmonary symptoms I believe the patient needs to be seen by a supervisor painting shipyard. Patient will be placed on a longer Medrol Dosepak, as well as Advair discus. Patient be given referral to Dr. Hanks who is a supervisor painting shipyard. There is no evidence to suspect any pneumothorax, pneumonia. Patient remained stable and does not appear to be hypoxic. I spoke with the patient as well as her , she verbally understands the importance of follow-up. <Dr. Juan Pablo Porter MD - Last Filed: 12/28/22 19:49> [facility] Narrative Medical decision making narrative: I have personally performed a face to face assessment of the patient and have reviewed the SUDHIR Note. I performed a substantive portion of the visit including all aspects of the following. My ludwig findings include: History is remarkable for history of asthma, upper respiratory infection initially treated with azithromycin. She was then was prescribed prednisone. She is presently on azithromycin again. She initially had a cough that was productive of green to brown-colored sputum. She has not had a productive cough recently. She presents because she does not want to feel ill. She does have history of autoimmune disorder, ulcerative colitis. She denies any increased bowel movements or blood or mucus in her stool. Presently she denies rhinorrhea, congestion or sore throat. She states at the beginning of her illness she had those symptoms. She does endorse dyspnea with exertion. She states she is never smoked. She was not exposed to any chemicals and does not live or work on a farm. She has not seen a supervisor painting shipyard. Exam is patient is tachycardic. HEENT exam is unremarkable. Lungs reveal expiratory rhonchi with coarse breath sounds and slight wheezing. Expiratory phase is slightly increased. There is no egophony. Heart is rapid and regular. There is no murmur, gallop or rub. There is no asymmetry, swelling, discoloration, leg vein distention, palpable cords or tenderness along the distribution of the deep venous system. There is no history of VTE ED. She denies leg pain, swelling discoloration. Medical Decision Making we will obtain chest x-ray to evaluate for pneumonia. She received DuoNeb and albuterol treatments. Differential is exacerbation of asthma, upper respiratory infection exacerbating asthma, pneumonia exacerbating asthma. Doubt this to be an autoimmune disorder or associated with her ulcerative colitis. Other additions or changes: [None] Radiography Chest X-Ray - ED: 2 View and Read by ED Physician (2 view chest x-ray was independent reviewed interpreted by me at 1813 as negative for any acute process. There is minimal chronic changes. Cardiac silhouette and size normal. Perihilar regions unremarkable. Lung parenchyma reveals no infiltrate. There is no evidence of effusion. Osseous struct) Diagnostic Testing: Clinical Impression(s) from Imaging Studies Chest X-Ray 12/28/22 18:12 IMPRESSION: Question right upper lobe nodule versus calcification from overlying costocartilaginous junction. No other interval change. Electronically Signed: José Miguel Finch DO at 18:57 EST Reading Location ID and State: [address] [place] [address] Tel [phone], Service support , Discharge Plan Triage Chief Complaint: Shortness of Breath ED Midlevel Provider: Zak Hair ED Provider: Juan Pablo Porter Dx/Rx/DC Orders Instructions: ED Asthma, Acute (Adult) Prescriptions: New fluticasone propion-salmeterol [Advair Diskus] 250-50 mcg/dose blister with device 1 inh inhalation BID Qty: 60 1RF prednisone 10 mg tablets,dose pack 10 mg PO QODAY Qty: 48 0RF No Action lisinopril 10 MG tablet 10 mg PO DAILY montelukast 10 MG tablet 10 mg PO DAILY mesalamine [Delzicol] 400 MG tablet 800 mg PO TID fexofenadine [Soni Allergy] 60 MG tablet 60 mg PO DAILY azithromycin 250 MG tablet 250 mg PO UD amoxicillin 500 mg capsule 500 mg PO Q6H amoxicillin-pot clavulanate 875-125 mg tablet 1 tab PO BID Qty: 20 0RF naproxen 500 mg tablet 500 mg PO BID Primary Care Provider: Kannan Rizvi Referrals: Yuri Hanks DO [Med Staff - Active Staff] - Kannan Rizvi MD [Primary Care Provider] - Activity Restrictions/Additional Instructions: Take the medication as prescribed. You need to follow-up with pulmonology. That would be Dr. Hanks. Return for any worsening symptoms. Disposition Disposition: Home, Self Care Discharge Date/Time: 12/28/22 18:50
[2022-12-28] MEDS: Albuterol 2.5 MG/3 ML VIAL.NEB. INHALATION (17:43)
[2022-12-28] MEDS: Ipratropium/Albuterol Sulfate 3 ML AMPUL.NEB INHALATION (17:43)
[2022-12-28 17:46] VITALS: PULSE 110; RESP 16
--- NOTE | 2022-12-28 18:12 | RAD_ITS ---
STUDY: X-RAY CHEST REASON FOR EXAM: Female, 67 years old. No evidence of breath. Cough and congestion for weeks. History of asthma. TECHNIQUE: PA and lateral views of the chest. COMPARISON: September 19, 2020. FINDINGS: Lungs are well expanded. On the AP view there is a vague density in the right midlung measuring approximately 1 cm in diameter. It is uncertain whether this represents a lung lesion or calcification costocartilaginous junction. It was not previously noted. Identified on the lateral film. There is no demonstrated pleural abnormality. Normal size heart. Normal mediastinum and danyell. Normal visualized pulmonary arteries. Normal visualized aortic arch and descending thoracic aorta. Normal visualized thoracic spine. There is degenerative osteoarthritis of the bilateral shoulders. There is no demonstrated abnormality of the visualized soft tissue structures of the upper abdomen. RAD/Chest PA and Lateral IMPRESSION: Question right upper lobe nodule versus calcification from overlying costocartilaginous junction. No other interval change. Electronically Signed: José Miguel Finch DO at 18:57 EST ,
[2022-12-28 18:49] VITALS: RESP 16; O2SAT 98
== END 2022-12-28 18:50 | disposition home or self-care (01) ==
PROVIDERS: Emergency Provider Emergency Medicine; PCP Family Medicine; Visit Provider Emergency Medicine
DX: R06.02 Shortness of breath (principal); I10 Essential (primary) hypertension; E78.5 Hyperlipidemia, unspecified; J45.909 Unspecified asthma, uncomplicated; Z79.52 Long term (current) use of systemic steroids
CPT/HCPCS: 71046; 94640; 99252; 99281; 99282; G0463

== ENCOUNTER → 2023-01-07 | Outpatient (CLI) | payer MEDICARE, SELFPAY ==
[2023-01-07 11:50] LABS: Absolute Lymphocyte Count 5.97 X10^3/uL (0.83-4.51); Absolute Neutrophil Count 7.7 X10^3/uL (2.0-7.7); Basophil# 0.04 X10^3/uL; Basophil% 0.3 % (0-1); Eosinophils% 0.7 % (0-5); Hematocrit 36.6 % (37-47); Hemoglobin 12.1 g/dL (12.0-15.0); Lymphocyte # 5.97 X10^3/ul (0.83-4.51); Lymphocyte % 40.5 % (19-41); Mean Corp Hgb Conc 33.1 g/dL (32-36); Mean Corpuscular Hgb 30.2 pg (27.0-32.0); Mean Corpuscular Volume 91.3 fL (81-99); Mean Platelet Vol. 9.3 fl (6.2-12.0); Monocyte# 0.86 X10^3/uL; Monocyte% 5.8 % (0-10); NRBC Flagged by Analyzer 0 % (0-5); Neutrophil # 7.69 X10^3/uL (2.7-7.7); Neutrophil % 52.2 % (47-70); POSITIVE DIFFERENTIAL YES; POSITIVE MORPHOLOGY YES; Platelet Count 347 K/mm3 (150-450); RBC Distribution Width CV 14.6 % (11.6-14.6); RBC Distribution Width SD 48.9 fl (35.1-43.9); Red Blood Count 4.01 M/mm3 (4.2-5.4); White Blood Count 14.7 K/mm3 (4.4-11.0)
[2023-01-07 11:56] LABS: Differential Indicated SCAN CRITERIA MET
[2023-01-07 12:40] LABS: Atypical Lymphocyte 3+ %; Hypersegmented Neutrophils 2+; Reactive Lymphocyte 2+
[2023-01-07 12:41] LABS: Smudge Cells 1+
[2023-01-07 12:42] LABS: Differential Comment SCANNED
[2023-01-09 09:40] LABS: Pathologist Review Reviewed
[2023-01-10 18:08] LABS: Alternaria tenuis <0.10 kU/L (Class 0); Ash, White <0.10 kU/L (Class 0); Aspergillus fumigatus <0.10 kU/L (Class 0); Bermuda Grass <0.10 kU/L (Class 0); Birch <0.10 kU/L (Class 0); Black Walnut <0.10 kU/L (Class 0); Cat Hair / Dander,Stand 2.47 kU/L (Class III); Cedar, Mountain <0.10 kU/L (Class 0); Cladosporium herbarum <0.10 kU/L (Class 0); Cockroach, American <0.10 kU/L (Class 0); Cottonwood <0.10 kU/L (Class 0); D farinae Mite <0.10 kU/L (Class 0); D pteronyssinus <0.10 kU/L (Class 0); Dog Epithelia 0.18 kU/L (Class 0/I); Elm, American White <0.10 kU/L (Class 0); Immunoglobulin E 24 IU/mL (6-495); Maple/Box Elder <0.10 kU/L (Class 0); Mulberry, White <0.10 kU/L (Class 0); Oak, White <0.10 kU/L (Class 0); Pecan <0.10 kU/L (Class 0); Penicillium Notatum <0.10 kU/L (Class 0); Pigweed, Rough <0.10 kU/L (Class 0); Ragweed, Short/Common <0.10 kU/L (Class 0); Russian Thistle <0.10 kU/L (Class 0); Sheep Sorrel <0.10 kU/L (Class 0); Sycamore, American <0.10 kU/L (Class 0); Timothy Grass <0.10 kU/L (Class 0)
[2023-01-10 19:07] LABS: Aspirgillus flavus Negative (Neg:<1:1); Aspirgillus fumigatus Negative (Neg:<1:1); Aspirgillus niger Negative (Neg:<1:1)
[2023-01-11 08:54] LABS: Immunoglobulin E 26 IU/mL (6-495); Mouse Urine <0.10 kU/L (Class 0)
== END | disposition home or self-care (01) ==
LOC: PAVLAB 11:25
PROVIDERS: PCP Family Medicine; Referring Provider Internal Medicine Critical Care Medicine; Visit Provider Internal Medicine Critical Care Medicine
DX: J45.909 Unspecified asthma, uncomplicated (principal); R06.02 Shortness of breath
CPT/HCPCS: 36415; 82785; 85025; 86003; 86606

== ENCOUNTER → 2023-01-21 | Outpatient (CLI) | payer MEDICARE, SELFPAY ==
--- NOTE | 2023-01-22 10:01 | PFT ---
INTRODUCTION: The patient is a 67-year-old female that presents for pulmonary function studies secondary to a diagnosis of asthma. Respiratory therapy reported good patient effort. Bronchodilators were used during testing. INTERPRETATION: Forced expiration spirometry demonstrates no evidence of a large airways obstructive ventilatory defect. There was no significant response to aerosolized bronchodilators. Spirograms are of good quality and plateau normally. Body plethysmography was performed and revealed an elevated TLC and RV, suggestive of underlying hyperinflation and air trapping. Diffusing capacity by single breath CO was within normal limits. IMPRESSION: Grossly normal PFTs, with incidental note made of hyperinflation and air trapping on lung volumes.
== END | disposition home or self-care (01) ==
LOC: PSN 09:16
PROVIDERS: PCP Family Medicine; Visit Provider Internal Medicine Critical Care Medicine
DX: J45.909 Unspecified asthma, uncomplicated (principal)
CPT/HCPCS: 94060; 94726; 94729

== ENCOUNTER → 2023-02-19 | Outpatient (CLI) | payer MEDICARE, SELFPAY ==
[2023-02-19 10:03] LABS: Mucous, Urine 0 SEEN /hpf (<or=2+); Red Blood Cells-Urine 0 SEEN /hpf (0-5)
[2023-02-19 12:14] LABS: Color, Urine Yellow (Yellow); Glucose, Dipstick Normal (Normal); Ketone-Dipstick Negative (Negative); Leukocyte Esterase-Dipstick 500 /ul (Negative); Nitrite-Dipstick Negative (Negative); Occult Blood-Urine Negative /ul (Negative); Protein-Dipstick Negative (Negative); Urine Bilirubin Dipstick Negative (Negative); Urine Clarity Sl. Cloudy (Clear); Urine Urobilinogen Normal (Normal)
[2023-02-19 12:20] LABS: Squamous Epithelial Cells - UA 0-5 SEEN /hpf (5-10); White Blood Cells 25-50 SEEN /hpf (0-5)
[2023-02-19 12:21] LABS: Bacteria 1+ /hpf (None Seen)
[2023-02-19 12:22] LABS: Absolute Lymphocyte Count 2.04 X10^3/uL (0.83-4.51); Absolute Neutrophil Count 7.5 X10^3/uL (2.0-7.7); Basophil# 0.07 X10^3/uL; Basophil% 0.7 % (0-1); Eosinophil# 0.11 X10^3/uL; Eosinophils% 1.1 % (0-5); Hematocrit 37.9 % (37-47); Hemoglobin 11.9 g/dL (12.0-15.0); Lymphocyte # 2.04 X10^3/ul (0.83-4.51); Lymphocyte % 20.1 % (19-41); Mean Corp Hgb Conc 31.4 g/dL (32-36); Mean Corpuscular Hgb 30.2 pg (27.0-32.0); Mean Corpuscular Volume 96.2 fL (81-99); Mean Platelet Vol. 10.4 fl (6.2-12.0); Monocyte# 0.42 X10^3/uL; Monocyte% 4.1 % (0-10); NRBC Flagged by Analyzer 0 % (0-5); Neutrophil # 7.49 X10^3/uL (2.7-7.7); Neutrophil % 73.6 % (47-70); Platelet Count 367 K/mm3 (150-450); RBC Distribution Width SD 49.4 fl (35.1-43.9); Red Blood Count 3.94 M/mm3 (4.2-5.4); White Blood Count 10.2 K/mm3 (4.4-11.0)
[2023-02-19 12:47] LABS: Vitamin D,25 Hydroxy 62.2 ng/mL
[2023-02-19 13:11] LABS: ALB/GLOB Ratio 1.2 RATIO (0.9-2.4); AST(SGOT) 18 U/L (15-37); Alanine Aminotransfer ALT/SGPT 24 U/L (13-56); Albumin, Serum 3.9 g/dL (3.2-5.0); Alkaline Phosphatase 72 U/L (45-117); Anion Gap 7 (5-15); BUN 14 mg/dL (7-18); BUN/Creat Ratio 19.2 RATIO (10-20); Calcium,Total 9.1 mg/dL (8.5-10.1); Chloride 108 mmol/L (98-107); Cholesterol 175 mg/dL (200); Creatinine, Serum 0.73 mg/dL (0.55-1.02); EST Glomerular Filtration Rate 85 mL/min (>60); Est Glom Filt Rate - Afr Amer 102 mL/min (>60); Globulin 3.2 g/dL (2.2-4.2); Glucose 113 mg/dL (74-106); High Density Lipoprotein 49 mg/dL; Potassium 4.1 mmol/L (3.5-5.1); Protein, Total 7.1 g/dL (6.4-8.2); Sodium Level 140 mmol/L (136-145); Triglycerides 151 mg/dL; Very Low Density Lipoprotein 30 mg/dL (5-40)
[2023-02-19 15:21] LABS: Vitamin B12 415 pg/mL (211-911)
[2023-02-19 15:44] LABS: Ferritin 11 ng/mL (8-252); Iron 62 ug/dL (50-170); Iron Binding Capacity,Total 376 ug/dL (250-450); PERCENT IRON SATURATION 16.5 % (15.0-55.0)
[2023-02-19 16:14] LABS: Hemoglobin A1c 5.4 % (3.8-5.6)
[2023-02-21 08:12] LABS: Transferrin 320 mg/dL (192-364)
== END | disposition home or self-care (01) ==
LOC: MFPLAB 10:01
PROVIDERS: PCP Family Medicine; Visit Provider Family Medicine
DX: I10 Essential (primary) hypertension (principal); E78.00 Pure hypercholesterolemia, unspecified; M81.0 Age-related osteoporosis without current pathological fracture; D64.9 Anemia, unspecified; R73.09 Other abnormal glucose
CPT/HCPCS: 36415; 80053; 80061; 81001; 82306; 82607; 82728; 83036; 83540; 83550; 84466; 85025

== ENCOUNTER → 2023-02-25 | Outpatient (CLI) | payer MEDICARE, SELFPAY ==
--- NOTE | 2023-02-25 13:12 | US_ITS ---
INDICATION: NODULES EXAMINATION: Ultrasound US Thyroid (eg thyroid, parathyroid, parotid) TECHNIQUE: Aelgria scale and color doppler imaging was performed of the thyroid gland. COMPARISON: September 26, 2021 thyroid ultrasound. FINDINGS: RIGHT THYROID LOBE: 7.0 mL in volume. Homogeneous echotexture with normal vascularity. [ 4 x 4 by 3 mm solid, echogenic, wider than tall, smoothly marginated nodule without echogenic foci; tI-RADS Category 3, mildly suspicious nodule for which no follow-up indicated based on size less than 1.5 cm. 5 x 5 x 4 cm solid, hypoechoic, wider than tall, smoothly marginated nodule with several internal punctate calcifications; tI-RADS category 7, highly suspicious nodule. [employer] recommendations follow-up imaging at 1, 2, 3 and 5 years. 4 x 3 x 4 mm gunjan solid and cystic, anechoic, wider than tall, ill-defined nodule without echogenic foci; tI-RADS Category 1, benign nodule. No follow-up indicated. LEFT THYROID LOBE: 7.4 mL in volume. Homogeneous echotexture with normal vascularity. [ 3 x 3 x 2 mm cystic, anechoic, wider than tall nodule with smooth margins and no echogenic foci; benign nodule. No follow-up recommended. 4 x 3 x 4 mm, mixed solid and cystic, isoechoic, wider than tall, smoothly marginated nodule without echogenic foci; tI-RADS Category 2, not suspicious nodule. No follow-up indicated. ISTHMUS: 3 mm. No thyroid nodules are present. US/Thyroid IMPRESSION: Normal-sized thyroid gland. Multiple thyroid nodules only one of which merits follow-up imaging due to apparent punctate echogenic foci resulting in category 7 highly suspicious categorization. This 5 x 4 x 5 mm nodule merits follow-up imaging at 1, 2, 3 and 5 years. Electronically Signed: Maico Bustillo DO at 22:17 EDT ,
== END | disposition home or self-care (01) ==
PROVIDERS: PCP Family Medicine; Referring Provider Family Medicine; Visit Provider Family Medicine
DX: E04.2 Nontoxic multinodular goiter (principal)
CPT/HCPCS: 76536

== ENCOUNTER → 2023-03-27 | Outpatient (CLI) | payer MEDICARE, SELFPAY ==
--- NOTE | 2023-03-27 11:34 | RAD_ITS ---
INDICATION: pain, post-lamenictomy EXAMINATION/TECHNIQUE: X-RAY - XR Spine Lumbar Min 4 Views COMPARISON: No previous lumbar spine examination for comparison, correlation is made to chest radiograph of 12/28/2022. FINDINGS: VERTEBRAE: 1. Vertebral body height and alignment are maintained from L1 to S1. Postoperative changes pedicle screw posterior fixation at L4-5. There is a grade 1 anterolisthesis of L3 on L4. Laminectomy defects present at L4 and L5. 2. There is normal appearance of visualized sacrum and sacroiliac joints. 3. Compression deformity of the superior endplate of T12 with loss of approximately 50% anterior vertebral body height. This appears remote or chronic in nature. The appearance of T12 is not changed from prior chest radiograph of 12/28/2022. DISCS: Disc spaces are maintained. INCLUDED ABDOMEN: Included bowel gas pattern is non-obstructive. RAD/L/S Spine Min 4 Views IMPRESSION: 1. Postoperative changes at L4-5 consistent with pedicle screw posterior fixation laminectomy defects. 2. Extensive endplate sclerosis and anterolisthesis at L3-4. 3. Deformity superior endplate of T12 without interval change consistent with remote fracture. No subluxation. 4. No acute fracture or acute bony process is noted. Electronically Signed: Pop Rebolledo MD at 21:08 EDT ,
--- NOTE | 2023-03-27 11:34 | RAD_ITS ---
STUDY: X-RAY - PELVIS AND BILATERAL HIPS REASON FOR EXAM: Female, 67 years old. pain TECHNIQUE: AP view of the pelvis.? 2 views of the right hip, and 2 views of the left hip were obtained. COMPARISON: None. FINDINGS: There is a non-specific bowel gas pattern. Normal visualized soft tissue structures. There are no visualized acute fractures of the hips or pelvic bony structures. Spinal hardware and posterior decompressive defect noted. Normal bilateral iliac wings, sacroiliac joints and visualized sacrum. Normal bilateral superior and inferior pubic rami. Normal pubic symphysis. Normal bilateral ischial tuberosities. Normal visualized right femoral head. Normal right acetabulum. Normal right hip joint. Normal visualized left femoral head. Normal left acetabulum. Normal left hip joint. RAD/Hips B/L min 2 views w/ Pelvis IMPRESSION: 1. No acute fracture or significant process of the pelvis and bilateral hips. Electronically Signed: Aman Cox MD at 11:37 EDT ,
== END | disposition home or self-care (01) ==
LOC: MTRAD 11:34
PROVIDERS: PCP Family Medicine; Referring Provider Family Medicine; Visit Provider Family Medicine
DX: M96.1 Postlaminectomy syndrome, not elsewhere classified (principal)
CPT/HCPCS: 72110; 73521

== ENCOUNTER → 2023-04-15 | Outpatient (CLI) | payer MEDICARE, SELFPAY ==
[2023-04-15 11:25] LABS: Amphetamine Urine VISTA NEGATIVE (<1000 ng/mL); Barbiturate Urine VISTA NEGATIVE (< 200 ng/mL); Benzodiazepine Urine VISTA NEGATIVE (< 200 ng/mL); Cocaine Urine VISTA NEGATIVE (< 300 ng/mL); Ecstacy Urine VISTA NEGATIVE (< 500 ng/mL); Methadone Urine VISTA NEGATIVE (< 300 ng/mL); PCP Urine VISTA NEGATIVE (< 25 ng/mL); THC Urine VISTA NEGATIVE (< 50 ng/mL); Vista UDS pH Range 5
== END | disposition home or self-care (01) ==
LOC: MTLAB 07:49
PROVIDERS: PCP Family Medicine; Referring Provider Family Medicine; Visit Provider Family Medicine
DX: M96.1 Postlaminectomy syndrome, not elsewhere classified (principal); Z51.81 Encounter for therapeutic drug level monitoring; Z79.899 Other long term (current) drug therapy
CPT/HCPCS: 80307

== ENCOUNTER → 2023-05-09 | Outpatient (CLI) | payer MEDICARE, SELFPAY ==
[2023-05-09 18:02] LABS: ALB/GLOB Ratio 1.3 RATIO (0.9-2.4); AST(SGOT) 16 U/L (15-37); Alanine Aminotransfer ALT/SGPT 23 U/L (13-56); Albumin, Serum 3.8 g/dL (3.2-5.0); Alkaline Phosphatase 73 U/L (45-117); Anion Gap 5 (5-15); BUN 11 mg/dL (7-18); BUN/Creat Ratio 14.4 RATIO (10-20); Calcium,Total 8.9 mg/dL (8.5-10.1); Chloride 105 mmol/L (98-107); Creatinine, Serum 0.76 mg/dL (0.55-1.02); EST Glomerular Filtration Rate 80 mL/min (>60); Est Glom Filt Rate - Afr Amer 97 mL/min (>60); Glucose 94 mg/dL (74-106); Potassium 4.4 mmol/L (3.5-5.1); Protein, Total 6.8 g/dL (6.4-8.2); Sodium Level 138 mmol/L (136-145)
== END | disposition home or self-care (01) ==
LOC: MFPLAB 15:11
PROVIDERS: PCP Family Medicine; Visit Provider Family Medicine
DX: L29.9 Pruritus, unspecified (principal)
CPT/HCPCS: 36415; 80053

== ENCOUNTER → 2023-07-18 | Outpatient (CLI) | payer MEDICARE, SELFPAY ==
[2023-07-18 08:41] LABS: Bacteria 0 SEEN /hpf (None Seen); Mucous, Urine 0 SEEN /hpf (<or=2+); Red Blood Cells-Urine 0 SEEN /hpf (0-5); White Blood Cells 0 SEEN /hpf (0-5)
[2023-07-18 10:04] LABS: Color, Urine Yellow (Yellow); Glucose, Dipstick Normal (Normal); Ketone-Dipstick Negative (Negative); Leukocyte Esterase-Dipstick 100 /ul (Negative); Nitrite-Dipstick Negative (Negative); Occult Blood-Urine 10 /ul (Negative); Protein-Dipstick 15 mg/dl (Negative); Urine Clarity Clear (Clear); Urine Urobilinogen Normal (Normal)
[2023-07-18 10:10] LABS: Absolute Lymphocyte Count 2.18 X10^3/uL (0.83-4.51); Absolute Neutrophil Count 5.2 X10^3/uL (2.0-7.7); Basophil# 0.06 X10^3/uL; Basophil% 0.7 % (0-1); Eosinophil# 0.24 X10^3/uL; Eosinophils% 2.9 % (0-5); Hematocrit 36.6 % (37-47); Hemoglobin 11.5 g/dL (12.0-15.0); Lymphocyte # 2.18 X10^3/ul (0.83-4.51); Lymphocyte % 26.7 % (19-41); Mean Corp Hgb Conc 31.4 g/dL (32-36); Mean Corpuscular Hgb 28.5 pg (27.0-32.0); Mean Corpuscular Volume 90.6 fL (81-99); Monocyte% 6.1 % (0-10); NRBC Flagged by Analyzer 0 % (0-5); Neutrophil # 5.16 X10^3/uL (2.7-7.7); Neutrophil % 63.4 % (47-70); Platelet Count 370 K/mm3 (150-450); RBC Distribution Width CV 14.6 % (11.6-14.6); Red Blood Count 4.04 M/mm3 (4.2-5.4); White Blood Count 8.2 K/mm3 (4.4-11.0)
[2023-07-18 10:22] LABS: Vitamin D,25 Hydroxy 44.4 ng/mL
[2023-07-18 10:35] LABS: AST(SGOT) 19 U/L (15-37); Alanine Aminotransfer ALT/SGPT 31 U/L (13-56); Albumin, Serum 3.5 g/dL (3.2-5.0); Alkaline Phosphatase 78 U/L (45-117); Anion Gap 3 (5-15); BUN 12 mg/dL (7-18); Calcium,Total 8.8 mg/dL (8.5-10.1); Chloride 107 mmol/L (98-107); Cholesterol 158 mg/dL (200); Creatinine, Serum 0.75 mg/dL (0.55-1.02); EST Glomerular Filtration Rate 82 mL/min (>60); Est Glom Filt Rate - Afr Amer 99 mL/min (>60); Globulin 3.5 g/dL (2.2-4.2); Glucose 102 mg/dL (74-106); High Density Lipoprotein 49 mg/dL; Potassium 3.9 mmol/L (3.5-5.1); Sodium Level 139 mmol/L (136-145); Thyroid Stim Hormone (TSH) 1.08 uIU/mL (0.358-3.74); Triglycerides 107 mg/dL; Very Low Density Lipoprotein 21 mg/dL (5-40)
[2023-07-18 11:07] LABS: Urine Bilirubin Dipstick 1 mg/dL (Negative)
[2023-07-18 11:10] LABS: Squamous Epithelial Cells - UA 0-5 SEEN /hpf (5-10)
== END | disposition home or self-care (01) ==
LOC: MTLAB 08:36
PROVIDERS: PCP Family Medicine; Referring Provider Family Medicine; Visit Provider Family Medicine
DX: M81.0 Age-related osteoporosis without current pathological fracture (principal); I10 Essential (primary) hypertension
CPT/HCPCS: 80053; 80061; 81001; 82306; 84443; 85025

== ENCOUNTER 2023-10-26 06:40 | Emergency (ER) | payer MEDICARE, SELFPAY ==
[2023-10-26 06:41] VITALS: BP 121/80; PULSE 115; RESP 20; TEMP 36.8; O2SAT 97; BMI 26.5
--- NOTE | 2023-10-26 07:12 | EDS_ITS ---
HPI History of Present Illness Chief Complaint: Cold Sx Informant: patient Onset/Context/Timing Onset: Yesterday Context: Gradual Onset Timing: Continuous Quality: Shaking Location: Generalized Worsened by: Nothing Relieved by: Nothing Narrative Narrative: Patient presents with chills that began yesterday. Patient states she began having some shaking. Patient states her shaking was generalized. Patient states nothing made it better and nothing made it worse. Patient did not take her temperature. Patient states she is coughing up some green sputum. Patient states she had a recent Prevnar vaccination. Patient also admits to some urinary frequency. Patient admits to some nausea and vomiting. Patient denies any diarrhea. [facility] Medical History Asthma HTN (hypertension) Home Medications mesalamine 400 mg capsule (with delayed release tablets inside) (Delzicol) 800 mg PO TID 07/25/13 [History Last Taken 02/20/17] fexofenadine 60 mg tablet (Soni Allergy) 60 mg PO DAILY 02/20/17 [History Last Taken 02/20/17] naproxen 500 mg tablet 500 mg PO BID 01/10/22 [History Last Taken Unknown] amlodipine 10 mg tablet 10 mg PO DAILY 01/02/23 [History Last Taken Unknown] lisinopril 10 mg tablet 20 mg PO DAILY 01/02/23 [History Last Taken Unknown] mesalamine 1.2 gram tablet,delayed release 2.4 g PO BID 01/02/23 [History Last Taken Unknown] omeprazole 10 mg capsule,delayed release 10 mg PO DAILY 01/02/23 [History Last Taken Unknown] rosuvastatin 10 mg tablet 10 mg PO DAILY 01/02/23 [History Last Taken Unknown] montelukast 10 mg tablet 10 mg PO DAILY #30 tabs 02/13/23 [Rx Last Taken Unknown] albuterol sulfate 90 mcg/actuation aerosol inhaler (Ventolin HFA) 2 puff inhal ation Q4H PRN shortness of breath or wheezing #18 grams 04/30/23 [Rx Last Taken Unknown] benzonatate 200 mg capsule 200 mg PO TID PRN cough #90 caps 09/10/23 [Rx Last Taken Unknown] fluticasone 500 mcg-salmeterol 50 mcg/dose blistr powdr for inhalation (Advair Diskus) 1 inh inhalation BID #60 ea 09/10/23 [Rx Last Taken Unknown] azithromycin 250 mg tablet 250 mg PO DAILY #4 TABLETS 10/26/23 [Rx Last Taken Unknown] Allergy/AdvReac Type Severity Reaction Status Date / Time Sulfa (Sulfonamide Allergy Mild Rash Verified 10/26/23 06:45 Antibiotics) Family History Mother Breast cancer Father COPD (chronic obstructive pulmonary disease) Surgical History H/O tubal ligation Hx of appendectomy Previous back surgery Social History housing: house Smoking Status: Never smoker ROS ROS ED Constitutional Constitutional ED: Reports chills and subjective; Denies fever(s) Eyes Eyes: Denies blurry vision or change in vision ENT ENT ED: Denies rhinorrhea or sore throat Cardiovascular Cardiovascular: Denies chest pain or palpitations Respiratory/Chest Respiratory/Chest: Reports cough, dyspnea and sputum Gastrointestinal Gastrointestinal: Reports nausea and vomiting Genitourinary Genitourinary ED: Reports urinary frequency; Denies dysuria or hematuria Musculoskeletal Musculoskeletal: Reports back pain and neck pain Integumentary Denies abscess or rash Neurologic Neurologic: Reports headache(s); Denies weakness Allergic/Immunologic Allergic/Immunologic ED: Denies mouth swelling or urticaria EXAM Physical Exam Const Vital Signs: 10/26/23 06:41 10/26/23 06:41 10/26/23 08:21 Temperature 98.2 F 101.0 F H Temperature Source Temporal Oral Pulse Rate 115 H Respiratory Rate 20 H Respiratory Effort Short of Breath Respiratory Pattern Tachypnea Blood Pressure 121/80 H Blood Pressure Mean 93 Pulse Ox 97 Oxygen Delivery Method Room Air Positive well nourished and well developed General Appearance ED: well developed and NAD HEENT Reports moist mucous membranes Neck supple and no JVD Resp normal respiratory effort and clear to auscultation bilaterally Cardio regular rate and regular rhythm GI non-tender and non-distended Palpation: soft Extremity normal to inspection General Extremety ED: Negative for edema or tenderness General Extremity: Negative for edema Neuro oriented x3, CN's II-XII intact bilaterally and no sensory deficits noted Sensorium / Orientation: alert Motor Exam: strength 5/5 throughout Psych mental status grossly normal MDM MDM MDM Narrative Medical decision making narrative: Differential diagnosis includes pneumonia, viral upper respiratory infection, congestive heart failure, bronchitis, urinary tract infection, sepsis, and electrolyte abnormality. Chest x-ray will be obtained to assess for pneumonia and congestive heart failure. CBC will be obtained to assess for leukocytosis and anemia. Basic metabolic profile will be obtained to assess for electrolyte abnormality and renal function. Urinalysis will be obtained to assess for urinary tract infection. COVID-19 PCR will be obtained to assess for COVID-19 infection. Influenza A and B PCR will be obtained to assess for influenza infection. RSV PCR will be obtained to assess for RSV infection. Lab Data Attestation: I reviewed the patient's lab results. Lab results narrative: CBC was reviewed. There is a mild leukocytosis of 17.2. The remainder is within normal limits. Basic metabolic profile was reviewed and was essentially within normal limits. Urinalysis was reviewed. There is no evidence of urinary tract infection or hematuria. COVID-19 PCR was reviewed and was negative. Influenza A and influenza B PCR was reviewed and was negative. RSV PCR was reviewed and was negative. Labs: Laboratory Results - last 24 hr 10/26/23 10/26/23 08:05 08:15 WBC 17.2 H RBC 4.32 Hgb 12.5 Hct 37.7 MCV 87.3 MCH 28.9 MCHC 33.2 RDW Std Deviation 47.7 H RDW Coeff of [place] 14.8 H Plt Count 299 MPV 9.7 Immature Gran % (Auto) 0.300 Neut % (Auto) 92.2 H Lymph % (Auto) 4.0 L Barren % (Auto) 3.0 Eos % (Auto) 0.3 Baso % (Auto) 0.2 Absolute Neuts (auto) 15.9 H Absolute Lymphs (auto) 0.69 L Nucleated RBC % 0 Sodium 137 Potassium 3.5 Chloride 107 Carbon Dioxide 23.0 Anion Gap 7 BUN 14 Creatinine 0.90 Estim Creat Clear Calc 47.97 Est GFR (MDRD) Af Amer 80 Est GFR (MDRD) Non-Af 66 BUN/Creatinine Ratio 15.5 Glucose 107 H Calcium 9.9 Urine Color Yellow Urine Clarity Clear Urine pH 5.0 Ur Specific [place] 1.025 Urine Protein 30 H Urine Glucose (UA) Normal Urine Ketones Negative Urine Occult Blood 10 H Urine Nitrite Negative Urine Bilirubin 1 H Urine Urobilinogen Normal Ur Leukocyte Esterase 100 H Urine RBC 0 SEEN Urine WBC 0-5 SEEN Ur Squamous Epith Cells 0-5 SEEN Urine Bacteria 0 SEEN Urine Mucus 0 SEEN Radiography Chest X-Ray - ED: 2 View, Read by ED Physician, Read by Radiologist and Right Infiltrate Diagnostic Testing: Clinical Impression(s) from Imaging Studies Chest X-Ray 10/26/23 08:25 IMPRESSION: Right lower lung infiltrate. Electronically Signed: Jadon Mota MD at 9:11 EST , [place] and lateral chest x-rays obtained. There are 2 views. On my independent interpretation, there is a right lower lobe infiltrate. There is no pneumothorax noted. Bony thorax is normal. There is no cardiomegaly noted. Radiologist also interpreted the x-ray and agrees. Treatment and Re-Evaluation :: Patient was given a dose of Tylenol here for her fever. Patient was started on Zithromax. Patient was given a prescription for Zithromax. Patient was instructed to take the Zithromax until it is gone. Patient was instructed to continue Tylenol and ibuprofen as needed for any fevers or aches. Patient was instructed to drink plenty of fluids. Patient was instructed to follow-up with her primary care physician in 5 to 7 days. Patient understood and was agreeable with the plan. All questions were answered. Discharge Plan Triage Chief Complaint: Cold Sx ED Provider: Harrison Contreras Dx/Rx/DC Orders Clinical Impression: Cough, Pneumonia Instructions: ED Pneumonia (Adult) Prescriptions: New azithromycin [azithromycin] 250 mg tablet 250 mg PO DAILY Qty: 4 0RF No Action rosuvastatin 10 mg tablet 10 mg PO DAILY omeprazole 10 mg capsule,delayed release(DR/EC) 10 mg PO DAILY amlodipine 10 mg tablet 10 mg PO DAILY mesalamine 1.2 gram tablet,delayed release (DR/EC) 2.4 g PO BID montelukast 10 mg tablet 10 mg PO DAILY Qty: 30 11RF mesalamine [Delzicol] 400 MG tablet 800 mg PO TID lisinopril 10 mg tablet 20 mg PO DAILY fexofenadine [Soni Allergy] 60 MG tablet 60 mg PO DAILY naproxen 500 mg tablet 500 mg PO BID albuterol sulfate [Ventolin HFA] 90 mcg/actuation HFA aerosol inhaler 2 puff inhalation Q4H PRN (Reason: shortness of breath or wheezing) Qty: 18 6RF fluticasone propion-salmeterol [Advair Diskus] 500-50 mcg/dose blister with device 1 inh inhalation BID Qty: 60 6RF benzonatate 200 mg capsule 200 mg PO TID PRN (Reason: cough) Qty: 90 0RF Primary Care Provider: Kannan Rizvi Referrals: Kannan Rizvi MD [Primary Care Provider] - 5-7 Days Disposition Disposition: Home, Self Care
--- OUTSIDE RECORDS SUMMARY | 2023-10-26 07:48 | XMS RPT_ITS | CCD ---
Author Name Unknown Address [address] [place] [address] Organization [facility] Care Team Providers Care Evaluation Advisor Name Role Phone Jose Garzon Primary Care Provider IFEOMA SORIA MD Admitting Unavailable JOSE GARZON Referring Unavailable JOSE GARZON Consulting Unavailable IFEOMA SORIA MD Attending Unavailable IFEOMA SORIA MD Primary Care Unavailable PROVIDER, UNKNOWN Consulting Unavailable Allergies Allergy Classification Reported Allergen(s) Allergy Type Date of Onset Reaction(s) Facility (2 sources) Cat Propensity to adverse reactions 08-01-2008 [facility] Work Phone: (2 sources) cow milk allergenic extract Drug Allergy 08-01-2008 Intolerance [facility] Work Phone: Medications Completed/Discontinued Medications Medication Drug Class(es) Dates Sig (Normalized) Sig (Original) fexofenadine hydrochloride 180 mg oral tablet (2 sources) Histamine-1 Receptor Antagonist Start: 08-28-2005 RENEE 180 MG TAB Take one(1) tablet daily. 0 08/28/2005 Active Problems Active Problems Problem Classification Problem Date Documented Da te Episodic/Chronic Regional enteritis and ulcerative colitis (2 sources) Ulcerative colitis; Translations: [Ulcerative colitis, unspecified, without complications] 07-14-2008 Chronic Past or Other Problems Problem Classification Problem Date Documented Da te Episodic/Chronic Hemorrhoids (2 sources) Internal hemorrhoids; Translations: [Other hemorrhoids] Onset: 01-22-2007 07-14-2008 Episodic Results Test Name Value Interpretation Reference Range Facil ity Encounters Encounter Date Encounter Type Care Provider Facility Start: 10-11-2023 End: 10-11-2023 [facility] ambulatory Kimberlee (Pss) [facility] Procedures Date Procedure Procedure Detail Performing Clinician Start: 06-27-2016 Colonoscopy Adalgisa Fleming Start: 05-14-2011 Mammography Adalgisa Fleming Plan of Treatment Date Care Activity Detail Author Start: 06-20-2023 Influenza vaccination INFLUENZA (Sea son Ended) [facility] Start: 10-20-2022 ADVANCE DIRECTIVE DISCUSSION ADVANCE DIRECTIVE DISCUSSION [facility] Start: 10-20-2022 DEPRESSION ASSESSMENT DEPRESSION ASS ESSMENT [facility] Start: 06-20-2022 Influenza vaccination INFLUENZA (#1) [facility] Start: 10-20-2021 ADVANCE DIRECTIVE DISCUSSION ADVANCE DIRECTIVE DISCUSSION [facility] Start: 10-20-2021 DEPRESSION ASSESSMENT DEPRESSION ASS ESSMENT [facility] Start: 2021 BONE DENSITY BONE DENSITY [facility] Start: 2021 PNEUMOCOCCAL: 65+ (1 - PCV) PNEUMOCOCCAL: 65+ (1 - PCV) [facility] Start: 11-28-2018 DIABETES SCREEN DIABETES SCREEN [facility] Start: 06-27-2017 Colonoscopy COLONOSCOPY [facility] Start: 06-27-2017 COLORECTAL CANCER SCREENING COLORECTAL CANCER SCREENING [facility] Start: 2016 HEPATITIS B (1 of 3 - Risk 3-dose series) HEPATITIS B (1 of 3 - Risk 3-dose series) [facility] Start: 05-14-2012 Mammography MAMMOGRAM [facility] Start: 2006 SHINGRIX VACCINE (1 of 2) SHINGRIX V ACCINE (1 of 2) [facility] Start: 2001 COLOGUARD (FIT-DNA) COLOGUARD (FIT-D NA) [facility] Start: [address] COLONOGRAPHY [facility] Start: 2001 FECAL OCCULT BLOOD FECAL OCCULT BLOO D [facility] Start: 2001 LIPID SCREEN LIPID SCREEN [facility] Start: 2001 SIGMOIDOSCOPY SIGMOIDOSCOPY [facility] Start: 1975 Urine microalbumin profile DTAP,TDAP ,TD (1 - Tdap) [facility] Start: 1974 HEPATITIS C SCREENING HEPATITIS C SC KURTISNING [facility] Start: 1974 MMR (1 of 2 - Risk 2 -dose series) MMR (1 of 2 - Risk 2-dose series) [facility] Start: 1966 MENINGOCOCCAL B: Con mitten stitcher based on risk (1 of 4 - Increased Risk Bexsero 2-dose series) MENINGOCOCCAL B: Consider based on risk (1 of 4 - Increased Risk Bexsero 2-dose series) [facility] Start: 1957 HEPATITIS A (1 of 2 - Risk 2-dose series) HEPATITIS A (1 of 2 - Risk 2-dose series) [facility] Start: 02-12-1957 COVID-19 VACCINE (#1) COVID-19 VACCI NE (#1) [facility] Payers Date Payer Category Payer Unknown LAITH LANCASTER PPO [id number] 2017-Present [phone] [id number] [place] [address] PPO [id number] 1955 Unknown [id number] Medicare [id number] Social History Date Type Detail Facility Start: 03-09-2018 Tobacco smoking stat [facility] Never smoked tobacco [facility] Work Phone: Start: 03-09-2018 Tobacco use and exposure Smokeless tobacco non-user [facility] Work Phone: Start: 06-03-2022 Alcohol intake Current drinke r of alcohol (finding) [facility] Start: 06-03-2022 [facility] Start: 1955 Sex Assigned At Not on file C [facility] Clinical Note 04-11-2023 Note Date & Type Note Facility 04-11-2023 Note Patient Outreach (CATRACHO TNAV) MARY COLON ([id number]) 1955 F Date Time Provider Department 04/11/23 KIMBERLEE ZUNIGA ([facility]) NET[facility] During your visit today, we recorded the following information about you: Kimberlee Zuniga 04/11/2023 10:09 AM Signed POPULATION HEALTH NAVIGATION OUTREACH Action/FYI Verified outside PCP. Patient Identified by Name and : YES, via phone Outreach Outcome/Action Spoke to patient / parent / legal guardian: PCP confirmed / updated Did you use a PCP flex slot to schedule this appointment? N/A Reason for Outreach Care Gap or Scheduling/Wellness visits Payer: Payor: LAITH / Plan: Realitycheck PPO / Product Type: PPO / Care Gap Reviewed:: Annual Wellness visit Reminder: Reminder note to check Health Maintenance for items below Health Maintenance items due: COVID-19 VACCINE(1) Never done HEPATITIS A(1 of 2 - Risk 2-dose series) Never done MENINGOCOCCAL B: Consider based on risk(1 of 4 - Increased Risk Bexsero 2-dose series) Never done MMR(1 of 2 - Risk 2-dose series) Never done HEPATITIS C SCREENING Never done DTAP,TDAP,TD(1 - Tdap) Never done LIPID SCREEN Never done SHINGRIX VACCINE(1 of 2) Never done MAMMOGRAM due on 05/14/2012 HEPATITIS B(1 of 3 - Risk 3-dose series) Never done COLORECTAL CANCER SCREENING due on 06/27/2017 DIABETES SCREEN due on 11/28/2018 BONE DENSITY Never done PNEUMOCOCCAL: 65+(1 - PCV) Never done ADVANCE DIRECTIVE DISCUSSION Never done DEPRESSION ASSESSMENT Never done Navigation Signature: Kimberlee Zuniga April 11, 2023 10:08 AM Allergies As of Date: 04/11/2023 Noted Allergy Reaction CATS 08/01/2008 MILK 08/01/2008 5 - Intolerance Date Reviewed: 03/09/2018 Reviewed by: Cordelia Mora Ma - Fully Assessed Reason for Visit: Population Health Navigation Outreach [3910] Cmt: Laith care gap Prescriptions as of 04/11/2023 - fluticasone (FLONASE) 50 mcg/actuation nasal spray Use 2 Sprays in each nostril once daily. Rinse mouth after use. - LIALDA 1.2 gram EC tablet TAKE TWO TABLETS BY MOUTH TWICE DAILY - predniSONE (DELTASONE) 20 mg tablet Take 1 tablet by mouth twice daily. - MULTIVITAMIN ORAL Take by mouth once daily. - lisinopril 10 mg tablet Take 10 mg by mouth once daily. - SINGULAIR 10 MG TAB Take one(1) tablet at bedtime - RENEE 180 MG TAB Take one(1) tablet daily. Problem List As Of Date 04/11/2023 Noted Resolved ULCERATIVE COLITIS NOS [K51.90] INT HEMORRHOID W/O COMPL [K64.8] 01/22/2007 Encounter Status:Closed by KIMBERLEE ZUNIGA on 04/11/23 [facility] Progress note 04-11-2023 Note Date & Type Note Facility 04-11-2023 Note HNO ID: [id number] Author: Kimberlee Zuniga Service: ? Author Type: ? Type: Progress Notes Filed: 04/11/2023 10:09 AM Note Text: POPULATION HEALTH NAVIGATION OUTREACH Action/FYI Verified outside PCP. Patient Identified by Name and : YES, via phone Outreach Outcome/Action Spoke to patient / parent / legal guardian: PCP confirmed / updated Did you use a PCP flex slot to schedule this appointment? N/A Reason for Outreach Care Gap or Scheduling/Wellness visits Payer: Payor: LAITH / Plan: Realitycheck PPO / Product Type: PPO / Care Gap Reviewed:: Annual Wellness visit Reminder: Reminder note to check Health Maintenance for items below Health Maintenance items due: COVID-19 VACCINE(1) Never done HEPATITIS A(1 of 2 - Risk 2-dose series) Never done MENINGOCOCCAL B: Consider based on risk(1 of 4 - Increased Risk Bexsero 2-dose series) Never done MMR(1 of 2 - Risk 2-dose series) Never done HEPATITIS C SCREENING Never done DTAP,TDAP,TD(1 - Tdap) Never done LIPID SCREEN Never done SHINGRIX VACCINE(1 of 2) Never done MAMMOGRAM due on 05/14/2012 HEPATITIS B(1 of 3 - Risk 3-dose series) Never done COLORECTAL CANCER SCREENING due on 06/27/2017 DIABETES SCREEN due on 11/28/2018 BONE DENSITY Never done PNEUMOCOCCAL: 65+(1 - PCV) Never done ADVANCE DIRECTIVE DISCUSSION Never done DEPRESSION ASSESSMENT Never done Navigation Signature: Kimberlee Zuniga April 11, 2023 10:08 AM [facility] History of Present illness Narrative 04-11-2023 Kimberlee Zuniga - 04/11/2023 10:08 AM EDT Note Date & Type Note Facility 04-11-2023 History of Presen t illness Narrative POPULATION HEALTH NAVIGATION OUTREACH Action/FYI Verified outside PCP. Patient Identified by Name and : YES, via phone Outreach Outcome/Action Spoke to patient / parent / legal guardian: PCP confirmed / updated Did you use a PCP flex slot to schedule this appointment? N/A Reason for Outreach Care Gap or Scheduling/Wellness visits Payer: Payor: MYRAEM / Plan: Realitycheck PPO / Product Type: PPO / Care Gap Reviewed:: Annual Wellness visit Reminder: Reminder note to check Health Maintenance for items below Health Maintenance items due: COVID-19 VACCINE(1) Never done HEPATITIS A(1 of 2 - Risk 2-dose series) Never done MENINGOCOCCAL B: Consider based on risk(1 of 4 - Increased Risk Bexsero 2-dose series) Never done MMR(1 of 2 - Risk 2-dose series) Never done HEPATITIS C SCREENING Never done DTAP,TDAP,TD(1 - Tdap) Never done LIPID SCREEN Never done SHINGRIX VACCINE(1 of 2) Never done MAMMOGRAM due on 05/14/2012 HEPATITIS B(1 of 3 - Risk 3-dose series) Never done COLORECTAL CANCER SCREENING due on 06/27/2017 DIABETES SCREEN due on 11/28/2018 BONE DENSITY Never done PNEUMOCOCCAL: 65+(1 - PCV) Never done ADVANCE DIRECTIVE DISCUSSION Never done DEPRESSION ASSESSMENT Never done Navigation Signature: Kimberlee Zuniga April 11, 2023 10:08 AM documented in this encounter [facility] Progress note 08-20-2022 Note Date & Type Note Facility 08-20-2022 Note HNO ID: [id number] Author: Adalgisa Fleming Population Health Navigator Service: ? Author Type: ? Type: Progress Notes Filed: 08/20/2022 12:18 PM Note Text: POPULATION HEALTH NAVIGATION OUTREACH Action/FYI Spoke with patient and updated PCP Pt identified by name and : YES, via phone Outreach Outcome/Action Spoke to patient or caregiver: PCP confirmed / updated PCP field updated Did you use a PCP flex slot to schedule this appointment? N/A Reason for Outreach Care Gap or Scheduling/Wellness visits Payer: Payor: MYRAEM / Plan: Realitycheck PPO / Product Type: PPO / Care Gap Reviewed:: Annual Wellness visit Breast Cancer screening Colorectal Cancer Screening Flu vaccine Reminder: Reminder note to check Health Maintenance for items below Health Maintenance items due: COVID-19 VACCINE(1) Never done HEPATITIS A(1 of 2 - Risk 2-dose series) Never done MENINGOCOCCAL B: Consider based on risk(1 of 4 - Increased Risk Bexsero 2-dose series) Never done MMR(1 of 2 - Risk 2-dose series) Never done HEPATITIS C SCREENING Never done DTAP,TDAP,TD(1 - Tdap) Never done LIPID SCREEN Never done SHINGRIX VACCINE(1 of 2) Never done MAMMOGRAM due on 05/14/2012 HEPATITIS B(1 of 3 - Risk 3-dose series) Never done COLORECTAL CANCER SCREENING due on 06/27/2017 DIABETES SCREEN due on 11/28/2018 BONE DENSITY Never done PNEUMOCOCCAL: 65+(1 - PCV) Never done ADVANCE DIRECTIVE DISCUSSION Never done DEPRESSION ASSESSMENT Never done INFLUENZA(1) Never done Message Sent to Practice: No Navigation Signature: Adalgisa Fleming Population Health Navigator August 20, 2022 12:16 PM [facility] Clinical Note 08-20-2022 Note Date & Type Note Facility 08-20-2022 Note Patient Outreach (NE TNAV) MARY COLON ([id number]) 1955 F Date Time Provider Department 08/20/22 ADALGISA FLEMING During your visit today, we recorded the following information about you: Adalgisa Fleming Population Health Navigator 08/20/2022 12:18 PM Signed POPULATION HEALTH NAVIGATION OUTREACH Action/FYI Spoke with patient and updated PCP Pt identified by name and : YES, via phone Outreach Outcome/Action Spoke to patient or caregiver: PCP confirmed / updated PCP field updated Did you use a PCP flex slot to schedule this appointment? N/A Reason for Outreach Care Gap or Scheduling/Wellness visits Payer: Payor: LAITH / Plan: Realitycheck PPO / Product Type: PPO / Care Gap Reviewed:: Annual Wellness visit Breast Cancer screening Colorectal Cancer Screening Flu vaccine Reminder: Reminder note to check Health Maintenance for items below Health Maintenance items due: COVID-19 VACCINE(1) Never done HEPATITIS A(1 of 2 - Risk 2-dose series) Never done MENINGOCOCCAL B: Consider based on risk(1 of 4 - Increased Risk Bexsero 2-dose series) Never done MMR(1 of 2 - Risk 2-dose series) Never done HEPATITIS C SCREENING Never done DTAP,TDAP,TD(1 - Tdap) Never done LIPID SCREEN Never done SHINGRIX VACCINE(1 of 2) Never done MAMMOGRAM due on 05/14/2012 HEPATITIS B(1 of 3 - Risk 3-dose series) Never done COLORECTAL CANCER SCREENING due on 06/27/2017 DIABETES SCREEN due on 11/28/2018 BONE DENSITY Never done PNEUMOCOCCAL: 65+(1 - PCV) Never done ADVANCE DIRECTIVE DISCUSSION Never done DEPRESSION ASSESSMENT Never done INFLUENZA(1) Never done Message Sent to Practice: No Navigation Signature: Adalgisa Fleming Population Health Navigator August 20, 2022 12:16 PM Allergies As of Date: 08/20/2022 Noted Allergy Reaction CATS 08/01/2008 MILK 08/01/2008 5 - Intolerance Date Reviewed: 03/09/2018 Reviewed by: Cordelia Mora Ma - Fully Assessed Reason for Visit: Population Health Navigation Outreach [3910] Cmt: Laith Care Gap Prescriptions as of 08/20/2022 - fluticasone (FLONASE) 50 mcg/actuation nasal spray Use 2 Sprays in each nostril once daily. Rinse mouth after use. - LIALDA 1.2 gram EC tablet TAKE TWO TABLETS BY MOUTH TWICE DAILY - predniSONE (DELTASONE) 20 mg tablet Take 1 tablet by mouth twice daily. - MULTIVITAMIN ORAL Take by mouth once daily. - lisinopril 10 mg tablet Take 10 mg by mouth once daily. - SINGULAIR 10 MG TAB Take one(1) tablet at bedtime - RENEE 180 MG TAB Take one(1) tablet daily. Problem List As Of Date 08/20/2022 Noted Resolved ULCERATIVE COLITIS NOS [K51.90] INT HEMORRHOID W/O COMPL [K64.8] 01/22/2007 Encounter Status:Closed by BERNADETTE POPULATION HEALTH NAVIGATORADALGISA on 08/20/22 [facility] History of Present illness Narrative 08-20-2022 Adalgisa Fleming Population Health Navigator - 08/20/2022 12:13 PM EDT Note Date & Type Note Facility 08-20-2022 History of Presen t illness Narrative POPULATION HEALTH NAVIGATION OUTREACH Action/FYI Spoke with patient and updated PCP Pt identified by name and : YES, via phone Outreach Outcome/Action Spoke to patient or caregiver: PCP confirmed / updated PCP field updated Did you use a PCP flex slot to schedule this appointment? N/A Reason for Outreach Care Gap or Scheduling/Wellness visits Payer: Payor: LAITH / Plan: Realitycheck PPO / Product Type: PPO / Care Gap Reviewed:: Annual Wellness visit Breast Cancer screening Colorectal Cancer Screening Flu vaccine Reminder: Reminder note to check Health Maintenance for items below Health Maintenance items due: COVID-19 VACCINE(1) Never done HEPATITIS A(1 of 2 - Risk 2-dose series) Never done MENINGOCOCCAL B: Consider based on risk(1 of 4 - Increased Risk Bexsero 2-dose series) Never done MMR(1 of 2 - Risk 2-dose series) Never done HEPATITIS C SCREENING Never done DTAP,TDAP,TD(1 - Tdap) Never done LIPID SCREEN Never done SHINGRIX VACCINE(1 of 2) Never done MAMMOGRAM due on 05/14/2012 HEPATITIS B(1 of 3 - Risk 3-dose series) Never done COLORECTAL CANCER SCREENING due on 06/27/2017 DIABETES SCREEN due on 11/28/2018 BONE DENSITY Never done PNEUMOCOCCAL: 65+(1 - PCV) Never done ADVANCE DIRECTIVE DISCUSSION Never done DEPRESSION ASSESSMENT Never done INFLUENZA(1) Never done Message Sent to Practice: No Navigation Signature: Adalgisa Fleming Population Health Navigator August 20, 2022 12:16 PM documented in this encounter [facility] Summary Purpose Family History No Family History Records FoundNo Family History Records Found Advance Directives No Advanced Directives Records FoundNo Advanced Directives Records Found Additional Source Comments Source Comments (unrecognize d section and content) In the event this informatio n is protected by the Federal Confidentiality of Alcohol and Drug Abuse Patient Records regulations: The Federal rules restrict any use of the information to criminally investigate or prosecute any alcohol or drug abuse patient.[facility] the event this information is protected by the Federal Confidentiality of Alcohol and Drug Abuse Patient Records regulations: The Federal rules restrict any use of the information to criminally investigate or prosecute any alcohol or drug abuse patient.[facility] Reason for Visit (unrecogniz ed section and content) Reason Onset Date Comments Population Health Navigation Outreach 04/11/2023 [place] care gap Care Teams (unrecognized sec tion and content) INFORMATION SOURCE (unrecogn ized section and content) DATE CREATED AUTHOR AUTHOR'S ORGANIZ ATION 10/12/2023 [facility] FOR RECORDS PERTAINING TO PATIENTS WHO ARE OR HAVE BEEN ENROLLED IN A CHEMICAL DEPENDENCY/SUBSTANCEABUSE PROGRAM, SOME INFORMATION MAY BE OMITTED. This clinical summary was aggregated from multiple sources. Caution should be exercised in using it in the provision of clinical care. This summary normalizes information from multiple sources, and as a consequence, information in this document may materially change the coding, format and clinical context of patient data. In addition, data may be omitted in some cases. CLINICAL DECISIONS SHOULD BE BASED ON THE PRIMARY CLINICAL RECORDS. [employer] [facility]. provides no warranty or guarantee of the accuracy or completeness of information in this document.
[2023-10-26 08:21] VITALS: TEMP 38.3
[2023-10-26 08:21] LABS: Bacteria 0 SEEN /hpf (None Seen); Mucous, Urine 0 SEEN /hpf (<or=2+); Red Blood Cells-Urine 0 SEEN /hpf (0-5)
--- NOTE | 2023-10-26 08:25 | RAD_ITS ---
STUDY: X-RAY CHEST REASON FOR EXAM: Female, 68 years old. Cough TECHNIQUE: PA and lateral views of the chest. COMPARISON: December 28, 2022 FINDINGS: There are mild right lower lung increased opacities. There is no demonstrated pleural abnormality. Normal size heart. Normal mediastinum and danyell. Normal visualized pulmonary arteries. There is atherosclerotic tortuosity of the aortic arch and descending thoracic aorta. There is compression fracture of T12. Normal visualized ribs, clavicles, and shoulders. There is no demonstrated abnormality of the visualized soft tissue structures of the upper abdomen. RAD/Chest PA and Lateral IMPRESSION: Right lower lung infiltrate. Electronically Signed: Jadon Mota MD at 9:11 [facility] ,
[2023-10-26 08:31] LABS: Absolute Lymphocyte Count 0.69 X10^3/uL (0.83-4.51); Absolute Neutrophil Count 15.9 X10^3/uL (2.0-7.7); Basophil# 0.04 X10^3/uL; Basophil% 0.2 % (0-1); Eosinophil# 0.05 X10^3/uL; Eosinophils% 0.3 % (0-5); Hematocrit 37.7 % (37-47); Hemoglobin 12.5 g/dL (12.0-15.0); Lymphocyte # 0.69 X10^3/ul (0.83-4.51); Mean Corp Hgb Conc 33.2 g/dL (32-36); Mean Corpuscular Hgb 28.9 pg (27.0-32.0); Mean Corpuscular Volume 87.3 fL (81-99); Mean Platelet Vol. 9.7 fl (6.2-12.0); Monocyte# 0.52 X10^3/uL; NRBC Flagged by Analyzer 0 % (0-5); Neutrophil # 15.87 X10^3/uL (2.7-7.7); Neutrophil % 92.2 % (47-70); Platelet Count 299 K/mm3 (150-450); RBC Distribution Width CV 14.8 % (11.6-14.6); RBC Distribution Width SD 47.7 fl (35.1-43.9); Red Blood Count 4.32 M/mm3 (4.2-5.4); White Blood Count 17.2 K/mm3 (4.4-11.0)
[2023-10-26 08:35] LABS: Color, Urine Yellow (Yellow); Glucose, Dipstick Normal (Normal); Ketone-Dipstick Negative (Negative); Leukocyte Esterase-Dipstick 100 /ul (Negative); Nitrite-Dipstick Negative (Negative); Occult Blood-Urine 10 /ul (Negative); Protein-Dipstick 30 mg/dl (Negative); Specific Gravity, Urine 1.025 (1.002-1.030); Urine Clarity Clear (Clear); Urine Urobilinogen Normal (Normal)
[2023-10-26 08:39] LABS: Anion Gap 7 (5-15); BUN 14 mg/dL (7-18); BUN/Creat Ratio 15.5 RATIO (10-20); Calcium,Total 9.9 mg/dL (8.5-10.1); Chloride 107 mmol/L (98-107); EST Glomerular Filtration Rate 66 mL/min (>60); Est Glom Filt Rate - Afr Amer 80 mL/min (>60); Estimated Creatinine Clearance 47.97 ml/min; Glucose 107 mg/dL (74-106); Potassium 3.5 mmol/L (3.5-5.1); Sodium Level 137 mmol/L (136-145)
[2023-10-26 08:52] LABS: Urine Bilirubin Dipstick 1 mg/dL (Negative)
[2023-10-26 08:53] LABS: White Blood Cells 0-5 SEEN /hpf (0-5)
[2023-10-26 08:54] LABS: Squamous Epithelial Cells - UA 0-5 SEEN /hpf (5-10)
[2023-10-26] MEDS: Acetaminophen 500 MG Tablet 1000 MG PO (09:43)
[2023-10-26] MEDS: Azithromycin 250 MG Tablet 500 MG PO (09:43)
[2023-10-26 09:44] VITALS: RESP 16; TEMP 38.3
== END 2023-10-26 09:48 | disposition home or self-care (01) ==
PROVIDERS: Emergency Provider Emergency Medicine; PCP Family Medicine; Visit Provider Emergency Medicine
DX: J18.9 Pneumonia, unspecified organism (principal); R35.0 Frequency of micturition; I10 Essential (primary) hypertension; Z79.899 Other long term (current) drug therapy
CPT/HCPCS: 36415; 71046; 80048; 81001; 85025; 87040; 87631; 99284

== ENCOUNTER → 2023-11-06 | Outpatient (CLI) | payer MEDICARE, SELFPAY ==
--- NOTE | 2023-11-06 11:11 | RAD_ITS ---
STUDY: X-RAY CHEST REASON FOR EXAM: Female, 68 years old. Evaluate for pneumonia. TECHNIQUE: Frontal and lateral views of the chest. COMPARISON: 10/26/2023 FINDINGS: Mild hyperinflation with clearing of the right middle lobe opacity. There is no demonstrated pleural abnormality. Normal size heart. Normal mediastinum and danyell. Normal visualized pulmonary arteries. Stable aortic tortuosity. Stable compression deformity of T12, age undetermined. Normal visualized ribs, clavicles, and shoulders. No abnormality of the visualized soft tissue structures of the upper abdomen. RAD/Chest PA and Lateral IMPRESSION: Stable chest with no acute or active cardiopulmonary disease. Electronically Signed: Reid Lares MD at 15:48 EST ,
== END | disposition home or self-care (01) ==
LOC: MTRAD 11:11
PROVIDERS: PCP Family Medicine; Referring Provider Family Medicine; Visit Provider Family Medicine
DX: J18.9 Pneumonia, unspecified organism (principal)
CPT/HCPCS: 71046

== ENCOUNTER → 2023-11-27 | Outpatient (CLI) | payer MEDICARE, SELFPAY ==
--- NOTE | 2023-11-27 10:04 | BI_ITS ---
MAMMOGRAPHY - BILATERAL SCREENING REASON FOR EXAM: Female, 68 years old. Routine annual screening examination. PERTINENT HISTORY: Mother with breast cancer. Chronic inversion of the left nipple. TECHNIQUE: Digital bilateral breast carey (3D mammographic acquisition) in the CC and MLO projections. 2-D mediolateral oblique (MLO) and craniocaudad (CC) views of both breasts were obtained. CAD: Full Field Digital Mammography with Computer Added Detection was performed. COMPARISON: Comparison is made with prior study dated October 11, 2021. FINDINGS: Breast Composition: The breasts are heterogeneously dense, which may obscure small masses. Since prior study, there is evidence of a nodular changes in the right breast. Correlation with ultrasound is recommended. There is also evidence of prominent right axillary lymph node. No other significant abnormalities are identified. BI/SCRN MAMM (CAD)W/CAREY BILAT IMPRESSION: Prominent nodular densities in the upper outer quadrant of the right breast with prominence of the right axillary node. Correlation with ultrasound is recommended. ASSESSMENT CATEGORY: BIRADS Category 0: Incomplete. Need additional imaging evaluation. A letter regarding these results will be sent to the patient by the facility within 30 days. Approximately 10% of breast cancers are not detected by mammography. A normal mammogram should not delay biopsy of a clinically suspicious abnormality. [id number] Electronically Signed: Duc Hayes MD at 11:05 EST ,
--- NOTE | 2023-11-27 10:06 | BD_ITS ---
STUDY: DUAL ENERGY X-RAY ABSORPTIOMETRY / DXA REASON FOR EXAM: Female, 68 years old. 733.00OsteoporosisBONE DENSITY REASON FOR EXAM TECHNIQUE: Bone Mineral Density (BMD) measurements of lumbar spine and bilateral hips were obtained. COMPARISON: Comparison is made with prior study dated October 30, 2021. FINDINGS: Lumbar Spine (L1-L4): g/cm2 (0.872) / T-score (-1.0) / Z-score (0.8) Findings are suggestive of osteopenia with a low fracture risk. Left Femur Total: g/cm2 (0.687) / T-score (-2.1) / Z-score (-0.7) Left Femoral Neck: g/cm2 (0.550) / T-score (-2.7) / Z-score (-1.1) Right Femur Total: g/cm2 (0.717) / T-score (-1.8) / Z-score (-0.5) Right Femoral Neck: g/cm2 (0.534) / T-score (-2.8) / Z-score (-1.2) The T-Scores on the most recent prior examination were: Lumbar Spine (L1-L4): There has been worsening of bone density since the previous examination. Left Femur Total: which represents no significant change. . Right Femur Total: which represents a worsening of 1%. BD/Dexa Bone Density Study IMPRESSION: The patient is considered osteoporotic as outlined below according to World Asim Organization (WHO) criteria with a high fracture risk. There has been worsening of bone density since the previous examination. Reference Information: The T-score is the number of standard deviations above or below the standard which is normal for young adults at their peak bone mineral density. The World Health Organization (WHO) interprets the T-scores as follows: Above -1 Normal bone density Between -1 and -2.5 Osteopenia Equal to / or below -2.5 Osteoporosis As a practical clinical guideline, osteopenia may be graded as follows: Mild -1 through -1.5 Moderate -1.6 through -2.0 Severe -2.1 through -2.4 The Z-score is the number of standard deviations above or below age-matched controls. A Z-score of less than -1.5 would be considered abnormal. References: 1. NIH Osteoporosis and Related Bone Diseases www osteo.org 2. International Society for Clinical Densitometry www iscd.org 3. National Osteoporosis Foundation www nof.org Electronically Signed: Duc Hayes MD at 9:35 EST ,
--- OUTSIDE RECORDS SUMMARY | 2023-11-27 11:35 | XMS RPT_ITS | CCD ---
Author Name Unknown Address [address] [place] [address] Organization [facility] Care Team Providers Care Slicing Machine Tender Name Role Phone Jose Garzon Primary Care Provider [phone] IFEOMA SORIA MD Admitting Unavailable JOSE GARZON Referring Unavailable JOSE GARZON Consulting Unavailable IFEOMA SORIA MD Attending Unavailable IFEOMA SORIA MD Primary Care Unavailable PROVIDER, UNKNOWN Consulting Unavailable Allergies Allergy Classification Reported Allergen(s) Allergy Type Date of Onset Reaction(s) Facility (2 sources) Cat Propensity to adverse reactions 08-01-2008 [facility] Work Phone: (2 sources) cow milk allergenic extract Drug Allergy 08-01-2008 Intolerance [facility] Work Phone: Medications Completed/Discontinued Medications Medication Drug [...] End: 10-11-2023 [facility]: [facility]23 ambulatory Kimberlee (Pss) [facility] [place] Procedures Date Procedure Procedure Detail Performing Clinician Start: 06-27-2016 Colonoscopy Adalgisa Fleming Start: 05-14-2011 Mammography Adalgisa Fleming Plan of Treatment Date Care Activity Detail Author Start: 06-20-2023 Influenza vaccination INFLUENZA (Sea son Ended) [facility] Start: 10-20-2022 ADVANCE DIRECTIVE DISCUSSION ADVANCE DIRECTIVE DISCUSSION [facility] Start: 10-20-2022 DEPRESSION ASSESSMENT DEPRESSION ASS ESSMENT [facility] Start: 06-20-2022 Influenza vaccination INFLUENZA (#1) [facility] Start: 10-20-2021 ADVANCE DIRECTIVE DISCUSSION ADVANCE DIRECTIVE DISCUSSION [facility] Start: 10-20-2021 DEPRESSION ASSESSMENT DEPRESSION ASS ESSMENT [facility] Start: 2021 BONE DENSITY BONE DENSITY [facility] Start: 2021 PNEUMOCOCCAL: 65+ (1 - PCV) PNEUMOCOCCAL: 65+ (1 - PCV) [facility] Start: 11-28-2018 DIABETES SCREEN DIABETES SCREEN [facility] Start: 06-27-2017 Colonoscopy COLONOSCOPY [facility] Start: 06-27-2017 COLORECTAL CANCER SCREENING COLORECTAL CANCER SCREENING [facility] Start: 2016 HEPATITIS B (1 of 3 - Risk 3-dose series) HEPATITIS B (1 of 3 - Risk 3-dose series) [facility] Start: 05-14-2012 Mammography MAMMOGRAM [facility] Start: 2006 SHINGRIX VACCINE (1 of 2) SHINGRIX V ACCINE (1 of 2) [facility] Start: 2001 COLOGUARD (FIT-DNA) COLOGUARD (FIT-D NA) [facility] Start: [address] COLONOGRAPHY [facility] Start: 2001 FECAL OCCULT BLOOD FECAL OCCULT BLOO D [facility] Start: 2001 LIPID SCREEN LIPID SCREEN [facility] Start: 2001 SIGMOIDOSCOPY SIGMOIDOSCOPY [facility] Start: 1975 Urine microalbumin profile DTAP,TDAP ,TD (1 - Tdap) [facility] Start: 1974 HEPATITIS C SCREENING HEPATITIS C SC KURTISNING [facility] Start: 1974 MMR (1 of 2 - Risk 2 -dose series) MMR (1 of 2 - Risk 2-dose series) [facility] Start: 1966 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 1955 Unknown [id number] Medicare [id number] Social History Date Type Detail Facility Start: 03-09-2018 Tobacco smoking stat [facility] Never smoked tobacco [facility] Work Phone: Start: 03-09-2018 Tobacco use and exposure Smokeless tobacco non-user [facility] Work Phone: Start: 06-03-2022 Alcohol intake Current drinke r of alcohol (finding) [facility] Start: 06-03-2022 [facility] Start: 1955 Sex Assigned At Not on file [facility] Clinical Note 04-11-2023 Note Date & Type Note Facility 04-11-2023 Note Patient Outreach (CATRACHO TNAV) MARY COLON ([id number]) 1955 F Date Time Provider Department 04/11/23 KIMBERLEE ZUNIGA ([facility]) NETNAV During your visit today, we recorded [...] Scheduling/Wellness visits Payer: Payor: LAITH / Plan: Sun-eee PPO / Product Type: PPO / Care [...] by KIMBERLEE ZUNIGA on 04/11/23 [facility] Progress note 04-11-2023 Note Date & Type Note Facility 04-11-2023 Note HNO ID: [id number] Author: Kimberlee Zuniga Service: ? Author Type: [...] Scheduling/Wellness visits Payer: Payor: LAITH / Plan: Sun-eee PPO / Product Type: PPO / Care [...] April 11, 2023 10:08 AM [facility] History of Present illness Narrative 04-11-2023 Kimberlee [...] Scheduling/Wellness visits Payer: Payor: MYRAEM / Plan: Sun-eee PPO / Product Type: PPO / Care [...] 2023 10:08 AM documented in this encounter [facility] Progress note 08-20-2022 Note Date & Type Note Facility 08-20-2022 Note HNO ID: [id number] Author: Adalgisa Fleming Population Health Navigator Service: [...] Scheduling/Wellness visits Payer: Payor: MYRAEM / Plan: Sun-eee PPO / Product Type: PPO / Care [...] August 20, 2022 12:16 PM [facility] Clinical Note 08-20-2022 Note Date & Type Note Facility 08-20-2022 Note Patient Outreach (NE TNAV) MARY COLON ([id number]) 1955 F Date Time Provider Department 08/20/22 [...] Scheduling/Wellness visits Payer: Payor: LAITH / Plan: Sun-eee PPO / Product Type: PPO / Care [...] POPULATION HEALTH NAVIGATORADALGISA on 08/20/22 [facility] History of Present illness Narrative 08-20-2022 Adalgisa [...] Scheduling/Wellness visits Payer: Payor: LAITH / Plan: Sun-eee PPO / Product Type: PPO / Care [...] 2022 12:16 PM documented in this encounter [facility] Summary Purpose Family History No Family History [...] or prosecute any alcohol or drug abuse patient.[facility] the event this information is protected by the Federal Confidentiality of Alcohol and Drug Abuse Patient Records regulations: The Federal rules restrict any use of the information to criminally investigate or prosecute any alcohol or drug abuse patient.[facility] Reason for Visit (unrecogniz ed section and content) Reason Onset Date Comments Population Health Navigation Outreach 04/11/2023 [place] care gap Care Teams (unrecognized sec tion and content) INFORMATION SOURCE (unrecogn ized section and content) DATE CREATED AUTHOR AUTHOR'S ORGANIZ ATION 10/12/2023 [facility] FOR RECORDS PERTAINING TO PATIENTS WHO ARE [...] BE BASED ON THE PRIMARY CLINICAL RECORDS. [facility]. provides no warranty or guarantee of the accuracy or completeness of information in this document.
== END | disposition home or self-care (01) ==
LOC: OPBD 09:59
PROVIDERS: PCP Family Medicine; Referring Provider Family Medicine; Visit Provider Family Medicine
DX: M81.0 Age-related osteoporosis without current pathological fracture (principal); Z78.0 Asymptomatic menopausal state; Z12.31 Encounter for screening mammogram for malignant neoplasm of breast; Z80.3 Family history of malignant neoplasm of breast
CPT/HCPCS: 77063; 77067; 77080

== ENCOUNTER → 2023-12-01 | Outpatient (CLI) | payer MEDICARE, SELFPAY ==
--- NOTE | 2023-12-01 13:43 | US_ITS ---
STUDY: ULTRASOUND BREAST - RIGHT REASON FOR EXAM: Female, 68 years old. Abnormal screening mammogram. TECHNIQUE: Axial and longitudinal images of the RIGHT breast were performed with a high resolution ultrasound transducer. # OF IMAGES: 39 COMPARISON: Comparison is made with prior mammogram dated November 27, 2023. FINDINGS: RIGHT Breast: The right axilla was examined with ultrasound. There are multiple lymph nodes seen in the right axilla. The largest lymph node measures 1.8 cm x 1.4 cm x 1.4 cm. This is irregular and predominantly cystic in nature with increased vascularity. Biopsy recommended. IMPRESSION: Suspicious 1.8 cm x 1.4 cm x 1.4 cm lymph node in the right axilla. Biopsy recommended. ASSESSMENT CATEGORY: BIRADS Category 4: Suspicious - Biopsy Should Be Considered. A letter regarding these results will be sent to the patient by the facility within 30 days. Electronically Signed: Duc Hayes MD at 15:40 EST , STUDY: ULTRASOUND BREAST - LEFT REASON FOR EXAM: Female, 68 years old. Abnormal screening mammogram. TECHNIQUE: Axial and longitudinal images of the LEFT breast were performed with a high resolution ultrasound transducer. # OF IMAGES: 39 COMPARISON: Comparison is made with prior mammogram dated November 27, 2023. FINDINGS: LEFT Breast: The retroareolar region of the breast was examined with ultrasound. There is evidence of a 6 mm x 7 mm x 6 mm hypoechoic irregular nodule. Biopsy recommended. US/Breast Limited Unilateral IMPRESSION: Suspicious 6 mm x 7 mm x 6 mm hypoechoic nodule in the retroareolar region of the left breast as described. Biopsy is recommended. ASSESSMENT CATEGORY: BIRADS Category 4: Suspicious - Biopsy Should Be Considered. A letter regarding these results will be sent to the patient by the facility within 30 days. Electronically Signed: Duc Hayes MD at 15:41 EST ,
--- OUTSIDE RECORDS SUMMARY | 2023-12-01 17:32 | XMS RPT_ITS | CCD ---
Author Name Unknown Address [address] [place] [address] Organization [facility] Care Team Providers Care Tower Equipment Installer Name Role Phone Jose Garzon Primary Care Provider IFEOMA SORIA MD Admitting Unavailable JOSE GARZON Referring Unavailable JOSE GARZON Consulting Unavailable IFEOMA SORIA MD Attending Unavailable IFEOMA SORIA MD Primary Care Unavailable PROVIDER, UNKNOWN Consulting Unavailable Allergies Allergy Classification Reported Allergen(s) Allergy Type Date of Onset Reaction(s) Facility (2 sources) Cat Propensity to adverse reactions 08-01-[address] [facility] Work Phone: (2 sources) cow milk allergenic extract Drug Allergy 08-01-[address] [facility] Work Phone: Medications Completed/Discontinued Medications Medication [...] End: 10-11-2023 [facility] Start: 04-11-2023 ambulatory Kimberlee (Pss) [facility] [place] Procedures Date Procedure Procedure Detail Performing Clinician Start: 06-27-2016 Colonoscopy Adalgisa Fleming Start: 05-14-2011 Mammography Adalgisa Fleming Plan of Treatment Date Care Activity Detail Author Start: 06-20-2023 Influenza vaccination INFLUENZA (Sea son Ended) [facility] Start: 10-20-2022 ADVANCE DIRECTIVE DISCUSSION ADVANCE DIRECTIVE DISCUSSION [facility] Start: 10-20-2022 DEPRESSION ASSESSMENT DEPRESSION ASS ESSMENT [facility] Start: 06-20-2022 Influenza vaccination INFLUENZA (#1) [facility] Start: 10-20-2021 ADVANCE DIRECTIVE DISCUSSION ADVANCE DIRECTIVE DISCUSSION [facility] Start: 10-20-2021 DEPRESSION ASSESSMENT DEPRESSION ASS ESSMENT [facility] Start: 2021 BONE DENSITY BONE DENSITY [facility] Start: 2021 PNEUMOCOCCAL: 65+ (1 - PCV) PNEUMOCOCCAL: 65+ (1 - PCV) [facility] Start: 11-28-2018 DIABETES SCREEN DIABETES SCREEN [facility] Start: 06-27-2017 Colonoscopy COLONOSCOPY [facility] Start: 06-27-2017 COLORECTAL CANCER SCREENING COLORECTAL CANCER SCREENING [facility] Start: 2016 HEPATITIS B (1 of 3 - Risk 3-dose series) HEPATITIS B (1 of 3 - Risk 3-dose series) [facility] Start: 05-14-2012 Mammography MAMMOGRAM [facility] Start: 2006 SHINGRIX VACCINE (1 of 2) SHINGRIX V ACCINE (1 of 2) [facility] Start: 2001 COLOGUARD (FIT-DNA) COLOGUARD (FIT-D NA) [facility] Start: [address] COLONOGRAPHY [facility] Start: 2001 FECAL OCCULT BLOOD FECAL OCCULT BLOO D [facility] Start: 2001 LIPID SCREEN LIPID SCREEN [facility] Start: 2001 SIGMOIDOSCOPY SIGMOIDOSCOPY [facility] Start: 1975 Urine microalbumin profile DTAP,TDAP ,TD (1 - Tdap) [facility] Start: 1974 HEPATITIS C SCREENING HEPATITIS C SC KURTISNING [facility] Start: 1974 MMR (1 of 2 - Risk 2 -dose series) MMR (1 of 2 - Risk 2-dose series) 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 Start: 1957 HEPATITIS A (1 of 2 - Risk 2-dose series) HEPATITIS A (1 of 2 - Risk 2-dose series) [facility] Start: 02-12-1957 COVID-19 VACCINE (#1) COVID-19 VACCI NE (#1) [facility] Payers Date Payer Category Payer Unknown LAITH LANCASTER PPO [id number] 2017-Present [phone] [address] [place] [address] PPO [id number] 1955 Unknown [id number] Medicare [id number] Social History Date Type Detail Facility Start: 03-09-2018 Tobacco smoking stat [facility] Never smoked tobacco [facility] Work Phone: Start: 03-09-2018 Tobacco use and exposure Smokeless tobacco non-user [facility] Work Phone: Start: 06-03-2022 Alcohol intake Current drinke r of alcohol (finding) [facility] Start: 06-03-2022 [facility] Start: 1955 Sex Assigned At Not on file C [facility] Clinical Note 04-11-2023 Note Date & Type Note Facility 04-11-2023 Note Patient Outreach (CATRACHO TNAV) MARY COLON ([id number]) 1955 F Date Time Provider Department 04/11/23 KIM[facility]LEE [facility]UNIG[facility] NETNAV During your visit today, we recorded [...] Scheduling/Wellness visits Payer: Payor: LAITH / Plan: [employer] PPO / Product Type: PPO / Care [...] W/O COMPL [K64.8] 01/22/2007 Encounter Status:Closed by KIMBRELEE ZUNIGA on 04/11/23 [facility] Progress note 04-11-2023 Note Date & Type Note Facility 04-11-2023 Note HNO ID: [id number] Author: Kimberlee Zuniga Service: ? Author Type: [...] Scheduling/Wellness visits Payer: Payor: LAITH / Plan: [employer] PPO / Product Type: PPO / Care [...] Kimberlee Zuniga April 11, 2023 10:08 AM [facility] History of Present illness Narrative 04-11-2023 Kimberlee [...] Scheduling/Wellness visits Payer: Payor: MYRAEM / Plan: [employer] PPO / Product Type: PPO / Care [...] 2023 10:08 AM documented in this encounter [facility] Progress note 08-20-2022 Note Date & Type Note Facility 08-20-2022 Note HNO ID: [id number] Author: Adalgisa Fleming Population Health Navigator Service: [...] Scheduling/Wellness visits Payer: Payor: MYRAEM / Plan: V[employer] PPO / Product Type: PPO / Care [...] Health Navigator August 20, 2022 12:16 PM [facility] Clinical Note 08-20-2022 Note Date & Type Note Facility 08-20-2022 Note Patient Outreach (NE TNAV) MARY COLON ([id number]) 1955 F Date Time Provider Department 08/20/22 [...] Scheduling/Wellness visits Payer: Payor: LAITH / Plan: V[employer]Rocket PPO / Product Type: PPO / Care [...] by BERNADETTE POPULATION HEALTH NAVIGATORADALGISA on 08/20/22 [facility] History of Present illness Narrative 08-20-2022 Adalgisa [...] Scheduling/Wellness visits Payer: Payor: LAITH / Plan: V[employer]Rocket PPO / Product Type: PPO / Care [...] 2022 12:16 PM documented in this encounter [facility] Summary Purpose Family History No Family [...] or prosecute any alcohol or drug abuse patient[facility] the event this information is protected by the Federal Confidentiality of Alcohol and Drug Abuse Patient Records regulations: The Federal rules restrict any use of the information to criminally investigate or prosecute any alcohol or drug abuse patient.[facility] Reason for Visit (unrecogniz ed section and content) Reason Onset Date Comments Population Health Navigation Outreach 04/11/2023 [place] care gap Care Teams (unrecognized sec tion and content) INFORMATION SOURCE (unrecogn ized section and content) DATE CREATED AUTHOR AUTHOR'S ORGANIZ ATION 10/12/2023 [facility] FOR RECORDS PERTAINING TO PATIENTS WHO ARE [...] BE BASED ON THE PRIMARY CLINICAL RECORDS. [employer]. provides no warranty or guarantee of the accuracy or completeness of information in this document.
== END | disposition home or self-care (01) ==
LOC: OPUS 13:41
PROVIDERS: PCP Family Medicine; Referring Provider Family Medicine; Visit Provider Family Medicine
DX: R92.8 Other abnormal and inconclusive findings on diagnostic imaging of breast (principal)
CPT/HCPCS: 76642

== ENCOUNTER → 2023-12-04 | Outpatient (CLI) | payer MEDICARE, SELFPAY ==
--- NOTE | 2023-12-04 | IMM_PTH ---
PATHOLOGY RESULTS PATIENT: MARY QUINTERO LOC: [facility] U#:[id number] AGE/SX: 68/F ROOM: RE12/04/[address]: Dr. Melissa Stinson MD : 1955 BED: DIS: 12/04/2023 SPEC #: [id number] RECD: 12/08/23 13:27 STATUS: SARABJIT REQ #: [id number] RUDDY: 12/04/23 00:[address]: Melissa Stinson DEPT: IMMUNOHISTOCHEMISTRY RECD BY: Yoana London ENTERED: 12/08/23 13:29 SP TYPE: IMMUNO OTHR DR: Dr. Kannan Rizvi MD Tissues: Right breast, NOS Left breast, NOS Procedures: CALPONIN-1 (add) CK5-6 (add) CK8 (add) E-CAD (add) HER2 CHETNA (add) KI-67 (add) P53 (add) PA (add) P40 (add) MOC-31 (add) ER (initial) PHYSICIAN & [address] [address] SPECIMEN INFORMATION: Tissue Source: B - Right breast 10 o'clock, C - Left breast nodule 12 o'clock Clinical Info: Abnormal mammogram Specimen Number: [id number] B & C CPT code: 90401 x2, 96614 x14, 77262 x6 METHODOLOGY: Deparaffinized sections of prefer/formalin-fixed tissue or PAP/DQ stained slides are incubated with monoclonal/polyclonal antibodies/oligonucleotide probes. Localization is made via biotin free immunoperoxidase method. Appropriate controls are performed and reacted as expected. Results on target cell population are indicated in the following table: RESULTS: ANTIBODY / CLONE RESULT Block B P53 (DO-7) positive, rare, wild type Ki-67 (30-9) positive, 15% CK8 (83gkjuC83) positive CK5-6 (D5 & 1684) negative Calponin-1 (FF406X) negative P40 (BC28) negative E-Cad (ECH-6) positive MOC-31 (4561) positive MORPHOMETRIC ANALYSIS ER (clone 6F11) >95%, strong intensity PA (clone 16/1E2) 60%, moderate to strong intensity Her-2Neu (clone CB11) 0 Block C P53 (DO-7) positive, rare, wild type Ki-67 (30-9) positive CK8 (54vjsoB59) positive CK5-6 (D5 & 1684) negative Calponin-1 (FI885T) negative P40 (BC28) negative E-Cad (ECH-6) only focally positive MOC-31 (4561) negative MORPHOMETRIC ANALYSIS ER (clone 6F11) >95%, strong intensity PA (clone 16/1E2) >95%, strong intensity Her-2Neu (clone CB11) 0 The prognostic test for HER2 is performed on formalin-fixed paraffin embedded tissue. A 3+ (positive) staining pattern is defined as intense, homogeneous, complete, circumferential membranous staining in >10% of contiguous tumor cells. A similar weak (2+) staining pattern is interpreted as equivocal. SKY follow-up testing is recommended for all equivocal cases. Positivity/negativity for ER/PA is reported if > or < 1% of the tumor cells are immuno- reactive, respectively. The ASCO/CAP criteria is used for scoring. Reference: Journal of Clinical Oncology, 2013; 31:2859-1340 & 2010; 16:9208-5076. Ischemic time: Less than one hour. Duration of fixation: 76 Hrs; Sample Adequate: Yes. These assays have not been validated on decalcified tissues. Results should be interpreted with caution given the likelihood of false negativity on decalcified specimens or fixation greater than 72 hours. Alternative testing methods (FISH/dualISH for Her2; gene expression for ER) are recommended, if applicable. Please notify the laboratory if additional testing is required. These tests were developed and their performance characteristics determined by [facility]. They may not have been cleared or approved by the U.S. Food and Drug Administration. The FDA has determined that such clearance or approval is not necessary. The above immunohistochemical/dualISH markers are ordered and reviewed by the Pathologist. INTERPRETATION: B. Right breast at 10 o'clock, core biopsy: Invasive ductal carcinoma, nuclear grade 2. Positive for estrogen receptors (favorable prognostic indicator). Positive for progesterone receptors (favorable prognostic indicator). Negative for overexpression of VQF5eko. C. 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 Positive for estrogen receptors (favorable prognostic indicator). Positive for progesterone receptors (favorable prognostic indicator). Negative for overexpression of VXI3rdy. AM:jey 12/09/2023 Case has been reviewed in consultation with Dr. Perdomo who concurs with the above diagnosis. IDC:SJ
--- NOTE | 2023-12-04 15:39 | BRBX_PTH ---
PATHOLOGY RESULTS PATIENT: MARY QUINTERO LOC: [facility] U#:[id number] AGE/SX: 68/F ROOM: RE12/04/[address]: Dr. Melissa Stinson MD : 1955 BED: DIS: 12/04/2023 SPEC #: [id number] RECD: 12/05/23 07:25 STATUS: SARABJIT PHILIPPE #: [id number] RUDDY: 12/04/23 15:[address]: Melissa Stinson DEPT: SURGICAL PATHOLOGY RECD BY: Donna Zamora ENTERED: 12/05/23 07:27 SP TYPE: BREAST BX OTHR DR: Dr. Kannan Rizvi MD Tissues: LYMPH NODE BIOPSY Breast, NOS Breast, NOS Procedures: Surgery Specimen Level IV HEADER OPERATION: Biopsy of right axillary lymph node, right breast mass, left breast nodule PRE-OP DIAGNOSIS: Abnormal mammogram TISSUE SUBMITTED: A - Right axillary lymph node, B - Right breast mass 10 o'clock, 4.0 cm from nipple, C - Left breast nodule 12 o'clock, 1.0 cm from nipple MICROSCOPIC DIAGNOSIS A. Right axillary lymph node, biopsy: Benign fibrofatty tissue. B. Right breast at 10 o'clock, core biopsy: Invasive ductal carcinoma: Nuclear grade - 1/3 Maximal length - 8 mm See comment. C. Left breast nodule at 12 o'clock, core biopsy: Invasive lobular carcinoma with focal invasive ductal carcinoma: Nuclear grade - 1-2/3 Maximal length - 5 mm See comment. AM:jey 12/08/2023 COMMENT B & C. Immunohistochemistry ([id number]) supports the above diagnosis. Case has been reviewed in consultation with Dr. Perdomo who concurs with the above diagnosis. IDC:SJ MICROSCOPIC DESCRIPTION Slides are reviewed. GROSS DESCRIPTION A - Received in fixative is one container labeled with the patient's name and designated right axillary lymph node vs cyst. The specimen consists of an elongated piece of adipose measuring 0.7 x 0.2 x 0.1 cm. The entire specimen is submitted in one cassette. B - Received in fixative is one container labeled with the patient's name and designated right breast. The specimen consists of multiple elongated pieces of monte-yellow fibroadipose tissue that in aggregate measure 1.5 x 0.2 x 0.1 cm. The entire specimen is submitted in one cassette. C - Received in fixative is one container labeled with the patient name and designated left breast. The specimen consists of multiple elongated fragments of monte-yellow fibroadipose tissue that in aggregate measure 1.0 x 0.5 x 0.1 cm. The entire specimen is submitted in one cassette. / SJ:rg 12/05/2023 TC:0 Ischemic Time: 1 minute Fixation Time: 76 hours CPT: 32313 x3
== END | disposition home or self-care (01) ==
PROVIDERS: PCP Family Medicine; Visit Provider Surgery
DX: R92.8 Other abnormal and inconclusive findings on diagnostic imaging of breast (principal); C50.411 Malignant neoplasm of upper-outer quadrant of right female breast
CPT/HCPCS: 81002; 88305; 88341; 88342

== ENCOUNTER → 2023-12-17 | Outpatient (CLI) | payer MEDICARE, SELFPAY ==
--- NOTE | 2023-12-17 12:38 | MRI_ITS ---
STUDY: BILATERAL BREAST MR WITHOUT AND WITH CONTRAST REASON FOR EXAM: Female, 68 years old. Right axillary adenopathy with abnormal ultrasound. Left retroareolar breast mass. TECHNIQUE: Multi-sequence multi-echo imaging of both breasts was performed with a dedicated breast coil. T1-weighted and T2-weighted images were performed before the administration of contrast. T1-weighted images were also performed after the intravenous administration of 13 mL (scan contrast without complications. COMPARISON: Right breast ultrasound dated 12/01/2023, left breast ultrasound dated 12/01/2023, bilateral mammogram dated 11/27/2023. FINDINGS: RIGHT BREAST: Scattered fibroglandular densities with minimal background enhancement. Lobular enhancing lesion with multiple low signal intensity foci extending from the upper outer quadrant of the right breast to the lower outer quadrant of the right breast. Lesion measures approximately 5 cm in the transverse dimension and 5 cm in the sagittal dimension. An enhancing satellite lesion with a small connection to the main mass is located posteriorly and extends to the pectoralis muscle and measures approximately 1 cm in diameter. Small irregular enhancing mass in the retroareolar region measuring 4 mm x 5 mm in diameter. LEFT BREAST: Scattered fibroglandular densities are normal background enhancement. Irregular enhancing slightly lobular mass in the upper medial aspect of the breast measuring 1.6 cm x 1 cm x 2 cm. Multiple enlarged abnormal lymph nodes in the right axilla. No enlarged lymph nodes in the left axilla. No abnormality in the visualized regions of the chest or liver. MRI/Breast Bilateral W/O and W IMPRESSION: Large lobular enhancing mass in the right breast with satellite lesion extending to the pectoralis muscle as described. Small irregular enhancing mass in the retroareolar region of the right breast. Findings in the right breast are compatible with multicentric involvement. Irregular enhancing lobular lesion in the slightly upper and medial aspect of the left breast as described. Both lesions in both breasts are highly suspicious and ultrasound-guided biopsy for histologic confirmation would be appropriate. Consideration can also be given to ultrasound-guided biopsy of the abnormal right axillary lymph nodes, depending on the clinical preference. CATEGORY: BIRADS Category 5: Highly Suggestive of Malignancy - Appropriate Action Should Be Taken. A letter regarding these results will be sent to the patient by the facility within 30 days. Electronically Signed: Reid Lares MD at 16:15 EST ,
[2023-12-17 13:09] LABS: CREATININE FINGERSTICK < 1.0 mg/dL (0.55-1.02); EGFR FINGERSTICK > 60.0000 mL/min (>60)
--- OUTSIDE RECORDS SUMMARY | 2023-12-17 22:00 | XMS RPT_ITS | CCD ---
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 Name Role Phone Jose Garzon Primary Care Provider IFEOMA SORIA MD Admitting Unavailable JOSE GARZON Referring Unavailable JOSE GARZON Consulting Unavailable IFEOMA SORIA MD Attending Unavailable IFEOMA SORIA MD Primary Care Unavailable PROVIDER, UNKNOWN Consulting Unavailable Allergies Allergy Classification Reported Allergen(s) Allergy Type Date of Onset Reaction(s) Facility (2 sources) Cat Propensity to adverse reactions 08-01-[address] [facility] Work Phone: (2 sources) cow milk allergenic extract Drug Allergy 08-01-[address] [facility] Work Phone: Medications Completed/Discontinued Medications Medication [...] End: 10-11-2023 [facility]: [facility] Kimberlee (Pss) [facility] [place] Procedures Date Procedure Procedure Detail Performing Clinician Start: 06-27-2016 Colonoscopy Adalgisa Fleming Start: 05-14-2011 Mammography Adalgisa Fleming Plan of Treatment Date Care Activity Detail Author Start: 06-20-2023 Influenza vaccination INFLUENZA (Sea son Ended) [facility] Start: 10-20-2022 ADVANCE DIRECTIVE DISCUSSION ADVANCE DIRECTIVE DISCUSSION [facility] Start: 10-20-2022 DEPRESSION ASSESSMENT DEPRESSION ASS ESSMENT [facility] Start: 06-20-2022 Influenza vaccination INFLUENZA (#1) [facility] Start: 10-20-2021 ADVANCE DIRECTIVE DISCUSSION ADVANCE DIRECTIVE DISCUSSION [facility] Start: 10-20-2021 DEPRESSION ASSESSMENT DEPRESSION ASS ESSMENT [facility] Start: 2021 BONE DENSITY BONE DENSITY [facility] Start: 2021 PNEUMOCOCCAL: 65+ (1 - PCV) PNEUMOCOCCAL: 65+ (1 - PCV) [facility] Start: 11-28-2018 DIABETES SCREEN DIABETES SCREEN [facility] Start: 06-27-[address] [facility] Start: 06-27-2017 COLORECTAL CANCER SCREENING COLORECTAL CANCER SCREENING [facility] Start: 2016 HEPATITIS B (1 of 3 - Risk 3-dose series) HEPATITIS B (1 of 3 - Risk 3-dose series) [facility] Start: 05-14-[address] [facility] Start: 2006 SHINGRIX VACCINE (1 of 2) SHINGRIX V ACCINE (1 of 2) [facility] Start: 2001 COLOGUARD (FIT-DNA) COLOGUARD (FIT-D NA) [facility] Start: [address] COLONOGRAPHY [facility] Start: 2001 FECAL OCCULT BLOOD FECAL OCCULT BLOO D [facility] Start: 2001 LIPID SCREEN LIPID SCREEN [facility] Start: 2001 SIGMOIDOSCOPY SIGMOIDOSCOPY [facility] Start: 1975 Urine microalbumin profile DTAP,TDAP ,TD (1 - Tdap) [facility] Start: 1974 HEPATITIS C SCREENING HEPATITIS C SC KURTISNING [facility] Start: 1974 MMR (1 of 2 - Risk 2 -dose series) MMR (1 of 2 - Risk 2-dose series) [facility] Start: 1966 MENINGOCOCCAL B: 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 1955 Unknown [id number] Medicare [id number] Social History Date Type Detail Facility Start: 03-09-2018 Tobacco smoking stat [facility] Never smoked tobacco [facility] Work Phone: Start: 03-09-2018 Tobacco use and exposure Smokeless tobacco non-user [facility] Work Phone: Start: 06-03-2022 Alcohol intake Current drinke r of alcohol (finding) [facility] Start: 06-03-2022 [facility] Start: 1955 Sex Assigned At Not on file C [facility] Clinical Note 04-11-2023 Note Date & Type Note Facility 04-11-2023 Note Patient Outreach (CATRACHO TNAV) MARY COLON ([id number]) 1955 F Date Time Provider Department 04/11/23 KIMBERLEE ZUNIGA ([facility]) NETNAV During your visit today, we [...] Scheduling/Wellness visits Payer: Payor: LAITH / Plan: Hinge PPO / Product Type: PPO / Care [...] Encounter Status:Closed by KIMBERLEE ZUNIGA on 04/11/23 [facility] Progress note 04-11-2023 Note Date & Type Note Facility 04-11-2023 Note HNO ID: [id number] Author: Kimberlee Zuniga Service: ? Author Type: [...] Scheduling/Wellness visits Payer: Payor: LAITH / Plan: Hinge PPO / Product Type: PPO / Care [...] Kimberlee Zuniga April 11, 2023 10:08 AM [facility] History of Present illness Narrative 04-11-2023 Kimberlee [...] Scheduling/Wellness visits Payer: Payor: MYRAEM / Plan: Hinge PPO / Product Type: PPO / Care [...] 2023 10:08 AM documented in this encounter [facility] Progress note 08-20-2022 Note Date & Type Note Facility 08-20-2022 Note HNO ID: [id number] Author: Adalgisa Fleming Population Health Navigator Service: [...] Scheduling/Wellness visits Payer: Payor: MYRAEM / Plan: Hinge PPO / Product Type: PPO / Care [...] Health Navigator August 20, 2022 12:16 PM [facility] Clinical Note 08-20-2022 Note Date & Type Note Facility 08-20-2022 Note Patient Outreach (NE TNAV) MARY COLON ([id number]) 1955 F Date Time Provider Department 08/20/22 [...] Scheduling/Wellness visits Payer: Payor: LAITH / Plan: Hinge PPO / Product Type: PPO / Care [...] by BERNADETTE POPULATION HEALTH NAVIGATORADALGISA on 08/20/22 [facility] History of Present illness Narrative 08-20-2022 Adalgisa [...] Scheduling/Wellness visits Payer: Payor: LAITH / Plan: Hinge PPO / Product Type: PPO / Care [...] 2022 12:16 PM documented in this encounter [facility] Summary Purpose Family History No Family [...] or prosecute any alcohol or drug abuse patient.[facility] the event this information is protected by the Federal Confidentiality of Alcohol and Drug Abuse Patient Records regulations: The Federal rules restrict any use of the information to criminally investigate or prosecute any alcohol or drug abuse patient.[facility] Reason for Visit (unrecogniz ed section and content) Reason Onset Date Comments Population Health Navigation Outreach 04/11/2023 [place] care gap Care Teams (unrecognized sec tion and content) INFORMATION SOURCE (unrecogn ized section and content) DATE CREATED AUTHOR AUTHOR'S ORGANIZ ATION 10/12/2023 [facility] FOR RECORDS PERTAINING TO PATIENTS WHO ARE [...] BE BASED ON THE PRIMARY CLINICAL RECORDS. [employer] [facility]. provides no warranty or guarantee of the accuracy or completeness of information in this document.
== END | disposition home or self-care (01) ==
PROVIDERS: PCP Family Medicine; Referring Provider Surgery; Visit Provider Surgery
DX: N63.11 Unspecified lump in the right breast, upper outer quadrant (principal); N63.20 Unspecified lump in the left breast, unspecified quadrant; R22.31 Localized swelling, mass and lump, right upper limb
CPT/HCPCS: 77049; A9575; A4216; C8908

== ENCOUNTER 2023-12-28 08:43 | Emergency (ER) | payer MEDICARE, SELFPAY ==
[2023-12-28 08:43] VITALS: BP 148/86; PULSE 89; RESP 16; TEMP 36.3; O2SAT 99; BMI 27.6
--- NOTE | 2023-12-28 09:47 | RAD_ITS ---
INDICATION: cough, shortness of breath EXAMINATION/TECHNIQUE: X-RAY - XR Chest 2 Views COMPARISON: November 06, 2023 FINDINGS: LINES/DEVICES: None. LUNGS: No consolidation, edema or effusion. No pneumothorax. MEDIASTINUM AND CARDIOVASCULAR STRUCTURES: Cardiac silhouette not enlarged. Central airways and mediastinal contour are unremarkable. BONES AND SOFT TISSUES: There are round subcentimeter metallic densities projecting over the right axilla and left lower chest which are likely on the patient. RAD/Chest PA and Lateral IMPRESSION: No radiographic evidence of acute cardiopulmonary disease. Electronically Signed: Brinda Craig MD at 10:12 EDT ,
--- OUTSIDE RECORDS SUMMARY | 2023-12-28 09:48 | XMS RPT_ITS | CCD ---
Author Name Unknown Address [address] [place] [address] Organization [facility] Care Team Providers Care Forest Pathology Associate Professor Name Role Phone Jose Garzon Primary Care Provider IFEOMA SORIA MD Admitting Unavailable JOSE GARZON Referring Unavailable JOSE GARZON Consulting Unavailable IFEOMA SORIA MD Attending Unavailable IFEOMA SORIA MD Primary Care Unavailable PROVIDER, UNKNOWN Consulting Unavailable Allergies Allergy Classification Reported Allergen(s) Allergy Type Date of Onset Reaction(s) Facility (2 sources) Cat Propensity to adverse reactions 08-01-2008 [facility] Work Phone: (2 sources) cow milk allergenic extract Drug Allergy 08-01-2008 Intolerance [facility] Work Phone: Medications Completed/Discontinued Medications Medication Drug [...] End: 10-11-2023 [facility]: [facility]23 ambulatory Kimberlee (Pss) [facility] [place] Procedures Date Procedure Procedure Detail Performing Clinician Start: 06-27-2016 Colonoscopy Ismael Lear Start: 05-14-2011 Mammography Ismaelyung Fleming Plan of Treatment Date Care Activity Detail Author Start: 06-20-2023 Influenza vaccination INFLUENZA (Sea son Ended) [facility] Start: 10-20-2022 ADVANCE DIRECTIVE DISCUSSION ADVANCE DIRECTIVE DISCUSSION [facility] Start: 10-20-2022 DEPRESSION ASSESSMENT DEPRESSION ASS ESSMENT [facility] Start: 06-20-2022 Influenza vaccination INFLUENZA (#1) [facility] Start: 10-20-2021 ADVANCE DIRECTIVE DISCUSSION ADVANCE DIRECTIVE DISCUSSION [facility] Start: 10-20-2021 DEPRESSION ASSESSMENT DEPRESSION ASS ESSMENT [facility] Start: 2021 BONE DENSITY BONE DENSITY [facility] Start: 2021 PNEUMOCOCCAL: 65+ (1 - PCV) PNEUMOCOCCAL: 65+ (1 - PCV) [facility] Start: 11-28-2018 DIABETES SCREEN DIABETES SCREEN [facility] Start: 06-27-2017 Colonoscopy COLONOSCOPY [facility] Start: 06-27-2017 COLORECTAL CANCER SCREENING COLORECTAL CANCER SCREENING [facility] Start: 2016 HEPATITIS B (1 of 3 - Risk 3-dose series) HEPATITIS B (1 of 3 - Risk 3-dose series) [facility] Start: 05-14-2012 Mammography MAMMOGRAM [facility] Start: 2006 SHINGRIX VACCINE (1 of 2) SHINGRIX V ACCINE (1 of 2) [facility] Start: 2001 COLOGUARD (FIT-DNA) COLOGUARD (FIT-D NA) [facility] Start: [address] COLONOGRAPHY [facility] Start: 2001 FECAL OCCULT BLOOD FECAL OCCULT BLOO D [facility] Start: 2001 LIPID SCREEN LIPID SCREEN [facility] Start: 2001 SIGMOIDOSCOPY SIGMOIDOSCOPY [facility] Start: 1975 Urine microalbumin profile DTAP,TDAP ,TD (1 - Tdap) [facility] Start: 1974 HEPATITIS C SCREENING HEPATITIS C SC ADONIS [facility] Start: 1974 MMR (1 of 2 - Risk 2 -dose series) MMR (1 of 2 - Risk 2-dose series) [facility] Start: 1966 MENINGOCOCCAL B: 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 1955 Unknown [id number] Medicare [id number] Social History Date Type Detail Facility Start: 03-09-2018 Tobacco smoking stat [facility] Never smoked tobacco [facility] Work Phone: Start: 03-09-2018 Tobacco use and exposure Smokeless tobacco non-user [facility] Work Phone: Start: 06-03-2022 Alcohol intake Current drinke r of alcohol (finding) [facility] Start: 06-03-2022 Alcohol intake Justin celaya [facility] Start: 1955 Sex Assigned At Not on file C [facility] Clinical Note 04-11-2023 Note Date & Type Note Facility 04-11-2023 Note Patient Outreach (NE TNAV) MARY COLON ([id number]) 1955 F Date Time Provider Department 04/11/23 KIMBERLEE ZUNIGA ([facility]) NETNAV During your visit today, we recorded [...] Scheduling/Wellness visits Payer: Payor: LAITH / Plan: Vivo PPO / Product Type: PPO / Care [...] Type Note Facility 04-11-2023 Note HNO ID: [id number] Author: Kimberlee Zuniga Service: ? Author Type: [...] Scheduling/Wellness visits Payer: Payor: LAITH / Plan: Vivo PPO / Product Type: PPO / Care [...] Scheduling/Wellness visits Payer: Payor: MYRAEM / Plan: Vivo PPO / Product Type: PPO / Care [...] 2023 10:08 AM documented in this encounter [facility] Progress note 08-20-2022 Note Date & Type Note Facility 08-20-2022 Note HNO ID: [id number] Author: Ismael Fleming Population Health Navigator Service: ? Author [...] Scheduling/Wellness visits Payer: Payor: MYRAEM / Plan: Vivo PPO / Product Type: PPO / Care [...] Message Sent to Practice: No Navigation Signature: Ismael Fleming Population Health Navigator August 20, 2022 12:16 PM [facility] Clinical Note 08-20-2022 Note Date & Type Note Facility 08-20-2022 Note Patient Outreach (NE TNAV) MARY COLON ([id number]) 1955 F Date Time Provider Department 08/20/22 ISMAEL FLEMING During your visit today, we recorded the following information about you: Ismael Fleming Population Health Navigator 08/20/2022 12:18 PM [...] Scheduling/Wellness visits Payer: Payor: LAITH / Plan: Vivo PPO / Product Type: PPO / Care [...] Message Sent to Practice: No Navigation Signature: Ismael Fleming Population Health Navigator August 20, 2022 [...] 01/22/2007 Encounter Status:Closed by BERNADETTE POPULATION HEALTH NAVIGATORISMAEL on 08/20/22 [facility] History of Present illness Narrative 08-20-2022 Ismael Fleming Population Health Navigator - 08/20/2022 12:13 [...] Scheduling/Wellness visits Payer: Payor: LAITH / Plan: Vivo PPO / Product Type: PPO / Care [...] Message Sent to Practice: No Navigation Signature: Ismael Fleming Population Health Navigator August 20, 2022 12:16 PM documented in this encounter [facility] Summary Purpose Family History No Family History [...] or prosecute any alcohol or drug abuse patient.[facility] the event this information is protected by the Federal Confidentiality of Alcohol and Drug Abuse Patient Records regulations: The Federal rules restrict any use of the information to criminally investigate or prosecute any alcohol or drug abuse patient.[facility] Reason for Visit (unrecogniz ed section and content) Reason Onset Date Comments Population Health Navigation Outreach 04/11/2023 [place] care gap Care Teams (unrecognized sec tion and content) INFORMATION SOURCE (unrecogn ized section and content) DATE CREATED AUTHOR AUTHOR'S ORGANIZ ATION 10/12/2023 [facility] FOR RECORDS PERTAINING TO PATIENTS WHO ARE [...] BE BASED ON THE PRIMARY CLINICAL RECORDS. [employer]. provides no warranty or guarantee of the accuracy or completeness of information in this document.
--- NOTE | 2023-12-28 10:13 | EDS_ITS ---
HPI HPI - URI History of Present Illness Chief Complaint: Cough Informant: patient Onset/Context/Timing Onset: Yesterday Context: Gradual Onset Timing: Continuous Narrative Narrative: Patient states since yesterday she has had cough, congestion, and cough feels like it is in her chest. She states last time this happened she had pneumonia s o she wanted to be cautious. She has had no fevers or chills. No body aches or headaches. No GI symptoms. No luly dyspnea. Not coughing up any blood or purulent sputum. No known sick contacts. Patient states she has recently been diagnosed with breast cancer she has not initiated treatment yet still undergoing testing. [facility] ED Constitutional Constitutional ED: Denies chills or fever(s) ENT ENT ED: Reports nasal congestion and rhinorrhea; Denies ear pain or sore throat Cardiovascular Cardiovascular: Denies chest pain or palpitations Respiratory/Chest Respiratory/Chest: Reports cough; Denies dyspnea Gastrointestinal Gastrointestinal: Denies abdominal pain, diarrhea, nausea or vomiting Genitourinary Genitourinary ED: Denies dysuria or hematuria Musculoskeletal Musculoskeletal: Denies myalgias or neck pain Integumentary Denies abscess or rash Neurologic Neurologic: Denies headache(s), paresthesias or weakness Psychiatric Psychiatric: Denies depression or suicidal thoughts Endocrine Endocrinology: Denies polydipsia or polyuria [facility] Medical History Asthma HTN (hypertension) Malignant neoplasm of both breasts, estrogen receptor positive Home Medications mesalamine 400 mg capsule (with delayed release tablets inside) (Delzicol) 800 mg PO TID 07/25/13 [History Last Taken 02/20/17] fexofenadine 60 mg tablet (Soni Allergy) 60 mg PO DAILY 02/20/17 [History Last Taken 02/20/17] amlodipine 10 mg tablet 10 mg PO DAILY 01/02/23 [History Last Taken Unknown] lisinopril 10 mg tablet 40 mg PO DAILY 01/02/23 [History Last Taken Unknown] mesalamine 1.2 gram tablet,delayed release 2.4 g PO BID 01/02/23 [History Last Taken Unknown] omeprazole 10 mg capsule,delayed release 10 mg PO DAILY 01/02/23 [History Last Taken Unknown] rosuvastatin 10 mg tablet 10 mg PO DAILY 01/02/23 [History Last Taken Unknown] montelukast 10 mg tablet 10 mg PO DAILY #30 tabs 02/13/23 [Rx Last Taken Unknown] albuterol sulfate 90 mcg/actuation aerosol inhaler (Ventolin HFA) 2 puff inhalation Q4H PRN shortness of breath or wheezing #18 grams 04/30/23 [Rx Last Taken Unknown] fluticasone 500 mcg-salmeterol 50 mcg/dose blistr powdr for inhalation (Advair Diskus) 1 inh inhalation BID #60 ea 09/10/23 [Rx Last Taken Unknown] prednisone 20 mg tablet 40 mg (2 x 20 mg) PO DAILY #8 TABLETS 12/28/23 [Rx Last Taken Unknown] Allergy/AdvReac Type Severity Reaction Status Date / Time Sulfa (Sulfonamide Allergy Mild Rash Verified 12/28/23 08:45 Antibiotics) Family History (Updated 12/15/23 @ 15:40 by Paloma Alvarado) Mother Breast cancer Father COPD (chronic obstructive pulmonary disease) Aunt Breast cancer Diabetes Father Heart disease Surgical History (Updated 12/15/23 @ 15:38 by Paloma Alvarado) H/O breast biopsy H/O tubal ligation Hx of appendectomy Previous back surgery Social History housing: house Smoking Status: Never smoker alcohol intake: current alcohol intake frequency: holidays/special occasions only EXAM Physical Exam Const Vital Signs: 12/28/23 08:43 12/28/23 08:59 Temperature 97.4 F L Temperature Source Temporal Pulse Rate 89 Respiratory Rate 16 Respiratory Effort Normal Non-Labored Respiratory Depth Normal Respiratory Pattern Normal Blood Pressure 148/86 H Blood Pressure Mean 106 Pulse Ox 99 Oxygen Delivery Method Room Air Room Air Positive well nourished and well developed General Appearance ED: well developed and NAD HEENT Reports moist mucous membranes normocephalic and atraumatic Throat: Negative for posterior oropharynx abnormal Eyes PERRL and EOMs intact bilaterally Neck no lymphadenopathy, supple and no meningeal signs Resp normal respiratory effort and clear to auscultation bilaterally Resp Narrative: Bronchitic cough with occasional bronchospasm Cardio no murmurs Rate: regular rate Rhythm: regular rhythm GI non-tender and non-distended Extremity normal to inspection and full ROM Neuro oriented x3, CN's II-XII intact bilaterally and no sensory deficits noted Sensorium / Orientation: alert Motor Exam: strength 5/5 throughout Psych mental status grossly normal Skin Lesions: no lesions Rashes: no rashes MDM MDM MDM Narrative Medical decision making narrative: Differential including pneumonia, viral illness including COVID, flu, so we did a swab which was negative and a chest x-ray 2 views of my interpretation negative for pneumonia, radiology in agreement. She agrees that some of this is an asthma exacerbation as well. She has been using her inhaler and nebulizer at home which has been helping some. Therefore I am giving her a 5-day burst of prednisone with the first dose being given here 40 mg, and she states that discharged that she had some dental work recently and she is concerned that it seeded this infection. I reassured her I do not think she has an acute bacterial infection of any kind, she states that her orthopedist who did her back surgery, she has hardware there, wants her to have antibiotics but she did not call him before or after the dental procedure. She states her dentist did not think she needed anything. It is the weekend, so I think giving her 1 dose of Levaquin is reasonable for that purpose and that will help her be reassured, and unlikely to do any harm to her. Radiography Diagnostic Testing: Clinical Impression(s) from Imaging Studies Chest X-Ray 12/28/23 09:47 IMPRESSION: No radiographic evidence of acute cardiopulmonary disease. Electronically Signed: Brinda Craig MD at 10:12 EDT , Discharge Plan Triage Chief Complaint: Cough ED Provider: Jadon Grant Dx/Rx/DC Orders Clinical Impression: Acute bronchitis with bronchospasm, Acute asthma exacerbation Instructions: Acute Bronchitis, Asthma Prescriptions: New prednisone 20 mg tablet 40 mg PO DAILY Qty: 8 0RF No Action rosuvastatin 10 mg tablet 10 mg PO DAILY omeprazole 10 mg capsule,delayed release(DR/EC) 10 mg PO DAILY amlodipine 10 mg tablet 10 mg PO DAILY mesalamine 1.2 gram tablet,delayed release (DR/EC) 2.4 g PO BID montelukast 10 mg tablet 10 mg PO DAILY Qty: 30 11RF mesalamine [Delzicol] 400 MG tablet 800 mg PO TID lisinopril 10 mg tablet 40 mg PO DAILY fexofenadine [Soni Allergy] 60 MG tablet 60 mg PO DAILY albuterol sulfate [Ventolin HFA] 90 mcg/actuation HFA aerosol inhaler 2 puff inhalation Q4H PRN (Reason: shortness of breath or wheezing) Qty: 18 6RF fluticasone propion-salmeterol [Advair Diskus] 500-50 mcg/dose blister with device 1 inh inhalation BID Qty: 60 6RF Primary Care Provider: Kannan Rizvi Referrals: Kannan Rizvi MD [Primary Care Provider] - 1 Week if not improving Activity Restrictions/Additional Instructions: You received your first dose of prednisone in the ER, so the prescription can be started tomorrow 12/28 Disposition Disposition: Home, Self Care
[2023-12-28] MEDS: predniSONE 20 MG Tablet 40 MG PO (11:27)
[2023-12-28] MEDS: levoFLOXacin 750 MG Tablet PO (11:27)
[2023-12-28 11:29] VITALS: BP 133/93; PULSE 96; RESP 16; TEMP 36.3; O2SAT 98
== END 2023-12-28 11:30 | disposition home or self-care (01) ==
PROVIDERS: Emergency Provider Emergency Medicine; PCP Family Medicine; Visit Provider Emergency Medicine
DX: J20.9 Acute bronchitis, unspecified (principal); J45.901 Unspecified asthma with (acute) exacerbation; Z79.51 Long term (current) use of inhaled steroids; Z79.899 Other long term (current) drug therapy
CPT/HCPCS: 71046; 87631; 99283

== ENCOUNTER → 2024-01-07 | Outpatient (CLI) | payer MEDICARE, SELFPAY ==
--- NOTE | 2024-01-07 10:12 | MRI_ITS ---
EXAM: MR ABDOMEN WITHOUT AND WITH INTRAVENOUS CONTRAST CLINICAL INDICATION: BREAST CANCER -- LEFT ADRENAL TECHNIQUE: Multiplanar and multisequence MR images of the abdomen without and with intravenous contrast. CONTRAST: IV Clariscan 13ml COMPARISON: No relevant prior studies available. FINDINGS: LOWER THORAX: Normal. No pleural effusion. LIVER: 2.1 cm cyst arises from the hepatic segment 3. Additional 12 mm cyst at the dome of the liver and a subcentimeter cyst within hepatic segment 5. GALLBLADDER AND BILE DUCTS: Normal. No gallstones. No gallbladder distention or wall edema. No intra- or extrahepatic biliary ductal dilation. PANCREAS: Normal. No focal cystic or solid mass. SPLEEN: Normal. Normal size without focal cystic or solid mass. ADRENALS: Normal. No nodules. 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 Normal renal size and position. INTRAPERITONEAL SPACE: Normal. No ascites or other fluid collection. No free air. VASCULATURE: Normal. Abdominal aorta is non-dilated. LYMPH NODES: No enlarged lymph nodes. MRI/MRI Abd WITH and W/O Contrast IMPRESSION: 1. No evidence of an adrenal mass. 2. Cystic lesions of the liver and right kidney. No specific follow-up indicated. Electronically Signed: Carmine Andrew MD at 9:09 EDT ,
== END | disposition home or self-care (01) ==
PROVIDERS: PCP Family Medicine; Referring Provider Internal Medicine Hematology & Oncology; Visit Provider Internal Medicine Hematology & Oncology
DX: C50.919 Malignant neoplasm of unspecified site of unspecified female breast (principal)
CPT/HCPCS: 74183; A9575; A4216

== ENCOUNTER → 2024-01-28 | Outpatient (CLI) | payer MEDICARE, SELFPAY ==
[2024-01-28 09:53] LABS: Bacteria 0 SEEN /hpf (None Seen); Mucous, Urine 0 SEEN /hpf (<or=2+); Red Blood Cells-Urine 0 SEEN /hpf (0-5)
[2024-01-28 12:14] LABS: Absolute Lymphocyte Count 1.94 X10^3/uL (0.83-4.51); Absolute Neutrophil Count 6.5 X10^3/uL (2.0-7.7); Basophil# 0.06 X10^3/uL; Basophil% 0.7 % (0-1); Eosinophil# 0.12 X10^3/uL; Eosinophils% 1.3 % (0-5); Hematocrit 37.8 % (37-47); Hemoglobin 11.9 g/dL (12.0-15.0); Lymphocyte # 1.94 X10^3/ul (0.83-4.51); Lymphocyte % 21.1 % (19-41); Mean Corp Hgb Conc 31.5 g/dL (32-36); Mean Corpuscular Hgb 28.2 pg (27.0-32.0); Mean Corpuscular Volume 89.6 fL (81-99); Mean Platelet Vol. 9.9 fl (6.2-12.0); Monocyte# 0.57 X10^3/uL; Monocyte% 6.2 % (0-10); NRBC Flagged by Analyzer 0 % (0-5); Neutrophil # 6.45 X10^3/uL (2.7-7.7); Neutrophil % 70.3 % (47-70); Platelet Count 407 K/mm3 (150-450); RBC Distribution Width CV 16.1 % (11.6-14.6); RBC Distribution Width SD 52.9 fl (35.1-43.9); Red Blood Count 4.22 M/mm3 (4.2-5.4); White Blood Count 9.2 K/mm3 (4.4-11.0)
[2024-01-28 12:17] LABS: Color, Urine Yellow (Yellow); Glucose, Dipstick Normal (Normal); Ketone-Dipstick Negative (Negative); Leukocyte Esterase-Dipstick 25 /ul (Negative); Nitrite-Dipstick Negative (Negative); Occult Blood-Urine 10 /ul (Negative); Protein-Dipstick Negative (Negative); Specific Gravity, Urine 1.015 (1.002-1.030); Urine Bilirubin Dipstick Negative (Negative); Urine Clarity Clear (Clear); Urine Urobilinogen Normal (Normal)
[2024-01-28 12:23] LABS: Squamous Epithelial Cells - UA 0-5 SEEN /hpf (5-10); White Blood Cells 0-5 SEEN /hpf (0-5)
[2024-01-28 12:32] LABS: Vitamin D,25 Hydroxy 51.6 ng/mL
[2024-01-28 12:53] LABS: ALB/GLOB Ratio 1.1 RATIO (0.9-2.4); AST(SGOT) 21 U/L (15-37); Alanine Aminotransfer ALT/SGPT 29 U/L (13-56); Albumin, Serum 3.7 g/dL (3.2-5.0); Alkaline Phosphatase 74 U/L (45-117); Anion Gap 6 (5-15); BUN 16 mg/dL (7-18); BUN/Creat Ratio 19.4 RATIO (10-20); Calcium,Total 9.4 mg/dL (8.5-10.1); Chloride 107 mmol/L (98-107); Cholesterol 184 mg/dL (200); Creatinine, Serum 0.82 mg/dL (0.55-1.02); EST Glomerular Filtration Rate 73 mL/min (>60); Est Glom Filt Rate - Afr Amer 89 mL/min (>60); Globulin 3.5 g/dL (2.2-4.2); Glucose 104 mg/dL (74-106); High Density Lipoprotein 58 mg/dL; Magnesium 2.1 mg/dL (1.6-2.6); Potassium 4.1 mmol/L (3.5-5.1); Protein, Total 7.2 g/dL (6.4-8.2); Sodium Level 139 mmol/L (136-145); Thyroid Stim Hormone (TSH) 0.81 uIU/mL (0.358-3.74); Triglycerides 88 mg/dL; Very Low Density Lipoprotein 18 mg/dL (5-40)
== END | disposition home or self-care (01) ==
LOC: MFPLAB 09:50
PROVIDERS: PCP Family Medicine; Visit Provider Family Medicine
DX: I10 Essential (primary) hypertension (principal); M81.0 Age-related osteoporosis without current pathological fracture
CPT/HCPCS: 36415; 80053; 80061; 81001; 82306; 83735; 84443; 85025

== ENCOUNTER 2024-02-06 14:06 | Observation (INO) | payer MEDICARE, SELFPAY ==
--- NOTE | 2024-01-27 07:55 | EKG12_ITS ---
Test Reason : PRE OP Blood Pressure : / mmHG Vent. Rate : 089 BPM Atrial Rate : 089 BPM P-R Int : 146 ms QRS Dur : 070 ms QT Int : 326 ms P-R-T Axes : 055 031 064 degrees QTc Int : 396 ms Normal sinus rhythm Normal ECG Confirmed by Maico Hill ([id number]), film or videotape editor MIKE LINDA ([id number]) on 01/28/2024 5:49:16 AM Referred By: Melissa Stinson Confirmed By:Maico Hill
[2024-02-06] VITALS (15 sets, daily range): BP systolic 114–153; BP diastolic 68–84; PULSE 68–90; RESP 15–18; TEMP 36.3–37.1; O2SAT 92–99; BMI 27.1
--- NOTE | 2024-02-06 | LYMN_PTH ---
PATIENT: MARY QUINTERO LOC: [facility] U#:[id number] AGE/SX: 68/F ROOM: [id number] RE02/06/[address]: Dr. Melissa Stinson MD : 1955 BED: 1 DIS: 02/07/2024 SPEC #: [id number] RECD: 02/06/24 12:35 STATUS: SARABJIT PHILIPPE #: [id number] RUDDY: 02/06/24 00:[address]: Melissa Stinson DEPT: SURGICAL PATHOLOGY RECD BY: Raul Soares ENTERED: 02/06/24 12:38 SP TYPE: LYMPH NODE OTHR DR: Dr. Kannan Rizvi MD Tissues: A - Lymph node, NOS B - Lymph node, NOS C - Lymph node, NOS D - Breast, NOS E - Breast, NOS F - Breast, NOS Procedures: Frozen Section (charge) Frozen Section Add'l (chg) Surgery Specimen Level IV Surgery Specimen Level V HEADER OPERATION: Bilateral mastectomy with bilateral sentinel lymph node biopsy PRE-OP DIAGNOSIS: Invasive ductal carcinoma of breast, Invasive lobular carcinoma of left breast, Malignant neoplasm of both breasts; estrogen receptor positive, Mass of right axilla TISSUE SUBMITTED: A- [place] lymph node right breast, B- [place] lymph node right breast, C- Left breast sentinel lymph node, D- Right breast new superior skin margin-long stitch lateral, short stitch superior, E- Right breast new superior skin margin- long stitch lateral, short stitch superior, F- Left breast tissue- long stitch lateral, short stitch superior FROZEN SECTION DIAGNOSIS A. Right sentinel lymph node, biopsy: Macrometastatic carcinoma (measuring approximately 1.0cm). B. Right axillary sentinel lymph node #2, biopsy: Two out of two lymph nodes negative for carcinoma. C. Left breast sentinel lymph node, biopsy: Three out of three lymph nodes, negative for metastatic carcinoma. MICROSCOPIC DIAGNOSIS A. Right sentinel lymph node, biopsy: One lymph node positive for metastatic macrometestatic carcinoma. See comment. B. Right axillary sentinel lymph node #2, biopsy: Two out of two lymph node, negative for metastatic carcinoma. C. Left breast, sentinel lymph node, biopsy: Three out of three lymph node, negative for metastatic carcinoma. D. Right breast, mastectomy: Invasive ductal carcinoma with extensive papillary features. See cancer summary in the comment section. E. Right breast new superior skin margin: Negative for carcinoma. F. Left breast, mastectomy: Invasive carcinoma with mixed ductal and lobular features. See cancer summary in the comment section. STEFFEN/ 02/11/2024 COMMENT A. Largest focus of metastasis measures 1.4cm in greatest dimension, (measures microscopically). Extranodal extension is also noted measuring 0.3cm in greatest dimension. B&C. The lymph nodes are negative for metastatic carcinoma on multiple H & E levels and immunohisto-chemical stains for cytokeratins ([id number]). F. Immunohistochemistry ([id number]) supports the above diagnosis. INVASIVE BREAST CANCER SUMMARY: (A, B, D, E) Procedure - Mastectomy Specimen laterality - Right Tumor: Site - Outer quadrant, 10 o'clock position Size - 6.0 x 3.5 x 2.5cm Histologic type - Invasive ductal carcinoma witth extensive papillary features Focality - single focus of carcinoma. Histologic Grade (Star grade): Glandular/tubular differentiation - score 3 Nuclear pleomorphism - score 3 Mitotic count - score 1 Overall grade - 2 (score of 7) Ductal carcinoma in situ: Present Negative for extensive intraductal component (EIC) Size extent of DCIS- comprise about 20% of total tumor volume Number of blocks with DCIS - 5 Number of blocks examined- 12 Architectural patterns - Cribriform, solid, papillary and comedo Nuclear grade - Intramediate to high grade 2-3 Necrosis - Present, central (expansive comedo necrosis) Lobular carcinoma in situ (LCIS) - Not identified Tumor extension: Skin - Present and free of tumor Nipple - Ductal carcinoma in situ does not involve nipple epidermis Skeletal muscle - Present, free of tumor Margins: Margins are free of DCIS and invasive carcinoma. DCIS and invasive carcinoma are 1.0cm away from the closest posterior margin Lymph nodes: Number of sentinel lymph nodes examined - 3 Total number of lymph nodes examined (sentinel and nonsentinel) - 3 Number of lymph nodes with macrometastases - 1 Number of lymph nodes with macrometastases, micrometastases and isolated tumor cells - 0 Size of largest metastatic deposit (if present) - 1.4cm (measured microscopically) Extranodal extension - Present, 0.3cm in greatest dimension Treatment effect: Response to presurgical (neoadjuvant) therapy - no known presurgical therapy. Lymphvascular invasion - Not identified Dermal lymphvascular invasion - Not identified Distant metastasis - Not applicable Additional pathologic findings - Intraductal papilloma - Fibrocystic changes and intraductal hyperplasia with focal atypia. Ancillary studies - previously performed on section of tumor ([id number] / [id number]). ER - positive (more than 95%), strong intensity IA - positive (60%), moderate to strong intensity Her2 fady - negative (0) Her2 by dual SKY - not performed Microcalcifications - Present in DCIS PATHOLOGIC STAGE: pT3 pN1A (sn) pMx INVASIVE BREAST CANCER SUMMARY: (C & F) Procedure - Mastectomy Specimen laterality - Left Tumor: Site - 12 o'clock central portion Size - 2.7 x 2.2 x 2.5cm Histologic type - Invasive carcinoma with mixed ductal and lobular features. Focality - single focus of invasive carcinoma. Histologic Grade (Tyro grade): Glandular/tubular differentiation - score 3 Nuclear pleomorphism - score 2 Mitotic count - score 1 Overall grade - 2 (score of 6) Ductal carcinoma in situ: Present Size (extent of DCIS): <0.1% of the total tumor volume Number of blocks with DCIS - 2 Number of blocks examined- 12 Architectural patterns - Solid Nuclear grade - grade 1 (low) Necrosis - (expansive comedo necrosis)- Not identified Lobular carcinoma in situ (LCIS) - not identified. Tumor extension: Skin - Skin is present, free of tumor Nipple - DCIS does not involve nipple epidermis Skeletal muscle - Not present Margins: Margin are free of invasive carcinoma and ductal carcinoma in situ. Invasive carcinoma and ductal carcinoma in situ are 2.0cm away from the closest posterior margin Lymph nodes: Number of sentinel lymph nodes examined - 3 Total number of lymph nodes examined (sentinel and nonsentinel) - 3 Number of lymph nodes with macrometastases, micrometastases and isolated tumor cells - 0 Treatment effect: No known presurgical therapy. Lymphvascular invasion - not identified. Dermal lymphvascular invasion - not identified Distant metastasis - Not applicable Additional pathologic findings - Intraductal papilloma - Intraductal hyperplasia without atypia - Seborrheic keratosis, skin (0.9cm in greatest dimension) Ancillary studies - previously performed on section of tumor ([id number] / [id number]). ER - positive, >95%, strong intensity IA - positive, >95%, strong intensity Her2 fady - negative (0) Her2 by dual SKY - not performed Microcalcifications - Present in nonneoplastic tissue Clinical history - Please make reference to previous specimen [id number] right axillary lymph node, biopsy diagnosis of benign fibrofatty tissue, right breast 12 o'clock, core biopsy, invasive ductal carcinoma and left breast nodule at 12 o'clock, core biopsy diagnosis of invasive lobular carcinoma with focal invasive ductal carcinoma. PATHOLOGIC STAGE: pT2 pN0(sn) pMx The above summary is in compliance with [employer] [employer] (CAP) Cancer Protocols Checklist and [place] [employer] Committee on Cancer (AJCC), Staging Manual, 8th Ed. MICROSCOPIC DESCRIPTION Slides are reviewed. GROSS DESCRIPTION A. Received fresh for frozen section consultation labeled with the patient's name is a specimen designated Right sentinel lymph node. The specimen consists of an irregular fragment of monte-yellow ovoid tissue measuring 2.5 x 1.5 x 1.2cm. This specimen is bisected and submitted in its entirety in two blocks for frozen section consultation. Sections are submitted after additional fixation. / 02/06/24 B. Received fresh for frozen section consultation labeled with the patient's name is a specimen designated [place] lymph node right breast, #2. The specimen consists of two irregular fragments of monte-yellow fatty tissue. One fragment measure 2.0 x 1.5 x 1.0cm. The second fragment measures 2.0 x 1.5 x 0.6cm. Both fragments are bisected and submitted separately in two blocks for frozen section consultation. Sections are submitted after additional fixation. / 02/06/2024 C. Received fresh for frozen section diagnosis labeled with the patient's name is a specimen designated Left breast sentinel lymph node. The specimen consists of a piece of adipose tissue containing a nodule measuring 3.0 x 1.5 x 0.5cm. Three nodule consistent lymph nodes are identified measuring 0.4 to 1.0cm in greatest dimension. The entire specimen is submitted with frozen section diagnosis with cassette containing one bisected lymph node. Sections are submitted after additional fixation. [facility] 02/06/2024 D. Received in fixative is one container labeled with the patient's name and designated Right breast. The specimen consists of a skin piece that measures 13.0 x 6.0cm. Nipple measures 1.0cm in greatest dimension. Breast tissue measures 11.0 x 13.5 x 5.5cm. Serial section reveal a monte indurated mass in the lower outer quadrant measuring 6.0 x 3.5 x 2.5cm. This mass is 1.0cm away from the closest posterior margin. The specimen is inked as follows: posterior - black, superior - blue, inferior - green, medial - red and lateral - orange. More dictation will follow after fixation.[facility] 02/09/2024 Sections of the rest of this specimen reveal monte-yellow adipose cut surfaces mixed with monte-white fibrous area. [employer] Case [employer]er sections are submitted in 12 cassettes as follows: 1- Nipple, entirely submitted, 2- Perpendicular medial, lateral margins and skin, 3- Perpendicular superior, posterior and inferior margin, 4-7- Tumor, 5-48-[id number] section adjacent to and away from the tumor. Sections are submitted after additional fixation. [facility] 02/10/24 E. Received in fixative is one container labeled with the patient's name and designated Right breast new superior skin margin. The specimen consists of a piece of monte-white skin with underlying tissue measuring 15.0 x 1.5cm and up to 2.0cm in thickness. The specimen is inked as follows: New superior margin- blue, opposite margin- green, medial margin- red, lateral margin- orange. No skin lesion is identified. Sections do not reveal any mass lesion. Protective Services Case Worker sections are submitted in two cassettes. Sections are submitted after additional fixation. [facility] 02/09/2024 F. Received in fixative is one container labeled with the patient's name and designated Left breast. The specimen consists of a mastectomy specimen consisting of breast tissue with overlying skin ellipse. Breast tissue measures 13.0 x 11.5 x 5.0cm. The skin ellipse measures 13.5 x 5.5cm and the nipple measures 1.0cm in greatest dimension. There is an ovoid slightly raised skin lesion present in the upper outer quadrant measuring 0.9 x 0.6cm. The specimen is inked as follows: posterior - black, superior - blue, inferior - green, medial - red and lateral - orange. Section reveal a monte indurated mass in the centeral portion of the breast measuring 2.7 x 2.2 x 2.5cm. This mass is 2.0cm away from the closest posterior margin. Sections of the rest of this specimen reveal monte-yellow adipose cut surfaces mixed with monte- white fibrous areas. More dictation will follow after fixation. [facility] 02/09/2024 Protective Services Case Worker sections are submitted in 12 cassettes as follows: 1- Nipple, entirely submitted, 2-Skin lesion bisected, entirely submitted, 3- Perpendicular medial and lateral margin and skin, 4- Perpendicular superior, inferior and posterior margins, 5-8- Tumor, 9-12- Protective Services Case Worker sections adjacent and away from the tumor. Sections are submitted after additional fixation. [facility] 02/10/24 TC:0 CPT: [id number] ADDENDUM ADDENDUM ADDENDUM ADDENDUM ADDENDUM ADDENDUM ADDENDUM ADDENDUM ADDENDUM 03/24/2024 10:09 ADDENDUM 04/09/2024 10:38 ADDENDUM 03/24/2024 10:09 ADDENDUM 03/24/2024 10:09 ADDENDUM 03/24/2024 10:09 ADDENDUM 03/24/2024 10:09 ONCOTYPE DX BREAST RECURRENCE SCORE REPORT - BLOCK D5 Breast Cancer Recurrence Score = 4 Distant recurrence risk at 9 years = 10% Group average absolute chemotherapy benefit = No apparent benefit Results of the complete Oncotype testing ([employer] Report) are viewable in EMR under: Reports- Pathology- Lab Pathology Report, Scanned. ONCOTYPE DX BREAST RECURRENCE SCORE REPORT- BLOCK F5 PREMENOPAUSAL: RECURRENCE SCORE- 8 DISTANT RECURRANCE RISK AT 5 YEARS- 3% GROUP AVERAGE ABSOLUTE CHEMOTHERAPY BENEFIT- 2.3% POSTMENOPAUSAL: RECURRENCE SCORE- 8 DISTANT RECURRENCE RISK AT 5 YEARS- 2% GROUP AVERAGE ABSOLUTE CHEMOTHERAPY BENEFIT- No apparent chemotherapy benefit (<1%)
--- NOTE | 2024-02-06 | IMM_PTH ---
PATIENT: MARY QUINTERO LOC: [facility]3 U#:[id number] AGE/SX: 68/F ROOM: MS316 RE02/06/[address]: Dr. Melissa Stinson MD : 1955 BED: 1 DIS: 02/07/2024 SPEC #: [id number] RECD: 02/11/24 12:15 STATUS: SARABJIT RERosmery #: [id number] RUDDY: 02/06/24 00:[address]: Melissa Stinson DEPT: IMMUNOHISTOCHEMISTRY RECD BY: Raul Soares ENTERED: 02/11/24 12:18 SP TYPE: IMMUNO OTHR DR: Dr. Kannan Rizvi MD Tissues: B - Lymph node, NOS C - Lymph node, NOS F - Breast, NOS Procedures: CK8 (initial) CALPONIN-1 (add) CK7 (add) CK8 (add) E-CAD (add) Pankeratin (initial) Pankeratin (add) P40 (add) PHYSICIAN & [address] [address] SPECIMEN INFORMATION: Tissue Source: B- [place] lymph node right breast, C- Left breast sentinel lymph node, F- Left breast tisuse Clinical Info: Invasive ductal carcinoma of breast, invasive lobular carcinoma of left breast, malignant neoplasm of both breasts, estrogen receptor positive, mass of right axilla Specimen Number: [id number] B,C, F CPT code: 05872g6,,34461b76 METHODOLOGY: Deparaffinized sections of prefer/formalin-fixed tissue or PAP/DQ stained slides are incubated with monoclonal/polyclonal antibodies/oligonucleotide probes. Localization is made via biotin free immunoperoxidase method. Appropriate controls are performed and reacted as expected. Results on target cell population are indicated in the following table: RESULTS: ANTIBODY / CLONE RESULT Block B1 AE1-3 (AE1/AE3/PCK26) negative CK7 (OV-TL12/30) negative Block B2 AE1-3 (AE1/AE3/PCK26) negative CK7 (OV-TL12/30) negative Block C 2 AE1-3 (AE1/AE3/PCK26) negative CK7 (OV-TL12/30) negative Block C3 AE1-3 (AE1/AE3/PCK26) negative CK7 (OV-TL12/30) negative Block F6 E-Cad (ECH-6) positive* CK8 (90lusxG11) positive Calponin-1 (UW808S) negative P40 (BC28) negative Block F7 E-Cad (ECH-6) positive* CK8 (12yiajY55) positive Calponin-1 (TS755D) negative P40 (BC28) negative * Focal area of tumor shows negative staining These tests were developed and their performance characteristics determined by [facility]. They may not have been cleared or approved by the U.S. Food and Drug Administration. The FDA has determined that such clearance or approval is not necessary. The above immunohistochemical/dualISH markers are ordered and reviewed by the Pathologist. INTERPRETATION: B. [place] lymph node right breast: Two out of two lymph nodes, negative for metastatic carcinoma. C. Left breast sentinel lymph node: Three out of three lymph nodes, negative for metastatic carcinoma. F. Left breast tissue: Invasive carcinoma with mixed ductal and lobular features. STEFFEN/ 02/12/2024
--- NOTE | 2024-02-06 08:16 | NM_ITS ---
PROCEDURE: NUCLEAR MEDICINE Injection [place] Node - RIGHT breast(s). REASON FOR EXAM: Female, 68 years old. Right breast cancer. TECHNIQUE: [place] node localization using radionuclide methods of the RIGHT breast(s) was performed following subcutaneous administration of 1.2 mCi of of sulfur colloid Tc-99m. COMPARISON STUDIES : NM - None. CR - Not available for review at this time. CT - Not available for review at this time. MR - Not available for review at this time. US - Not available for review at this time. FINDINGS: 1.2 mCi of technetium sulfur colloid was injected subcutaneously in the periareolar region for sentinel node imaging. NM/Lymph Node Injection Only IMPRESSION: 1.2 mCi of technetium labeled sulfur colloid was injected subcutaneously in the periareolar region for sentinel node imaging. Electronically Signed: Duc Hayes MD at 9:52 EDT ,
--- NOTE | 2024-02-06 08:16 | NM_ITS ---
PROCEDURE: NUCLEAR MEDICINE Injection [place] Node - LEFT breast(s). REASON FOR EXAM: Female, 68 years old. Left breast cancer. TECHNIQUE: [place] node localization using radionuclide methods of the LEFT breast(s) was performed following subcutaneous administration of 1.2 mCi of of sulfur colloid Tc-99m. COMPARISON STUDIES : NM - None. CR - Not available for review at this time. CT - Not available for review at this time. MR - Not available for review at this time. US - Not available for review at this time. FINDINGS: 1.2 mCi of technetium level sulfur colloid was injected subcutaneously in 4 equal aliquots in the periareolar region for sentinel node imaging. NM/Lymph Node Injection Only IMPRESSION: 1.2 mCi of technetium level sulfur colloid was injected subcutaneously in 4 equal aliquots in the periareolar region for sentinel node imaging. Electronically Signed: Duc Hayes MD at 9:51 EDT ,
--- NOTE | 2024-02-06 08:47 | HP.PCM_ITS ---
History and Physical Date of Admission: 02/06/24 Date of Service: 01/21/24 MR#: [id number] Acct: [id number] Name: MARY QUINTERO Rep #: [id number] : 1955 Provider: Dr. Melissa Stinson MD Age/Sex: 68/F Location: [facility] Status: Signed Intake Vital Signs 01/12/2415:02 01/20/2413:36 Height 5 ft 1 in Weight: 148 lb BMI 27.9 BP 131/87 H 161/91 H Blood Pressure Location Lt brachial Rt brachial Position Sitting Sitting Respiration 18 17 Pulse 92 89 Pulse Source Monitor Monitor Temp 98.6 F Pulse Oximetry (%) 95 95 Oxygen Delivery Method room air room air Intake Visit Reasons: DICUSS SURGERY Chief Complaint: discuss surgery Is patient in pain?: No Allergies Sulfa (Sulfonamide Antibiotics) Allergy (Mild, Verified 01/21/24 13:37) Rash Medications mesalamine 400 mg capsule (with delayed release tablets inside) (Delzicol) 800 mg PO TID 07/25/13 [History Confirmed 01/21/24] fexofenadine 60 mg tablet (Soni Allergy) 60 mg PO DAILY 02/20/17 [History Confirmed 01/21/24] amlodipine 10 mg tablet 10 mg PO DAILY 01/02/23 [History Confirmed 01/21/24] lisinopril 10 mg tablet 40 mg PO DAILY 01/02/23 [History Confirmed 01/21/24] mesalamine 1.2 gram tablet,delayed release 2.4 g PO BID 01/02/23 [History Con firmed 01/21/24] omeprazole 10 mg capsule,delayed release 10 mg PO DAILY 01/02/23 [History Confirmed 01/21/24] rosuvastatin 10 mg tablet 10 mg PO DAILY 01/02/23 [History Confirmed 01/21/24] montelukast 10 mg tablet 10 mg PO DAILY #30 tabs 02/13/23 [Rx Confirmed 01/21/24] albuterol sulfate 90 mcg/actuation aerosol inhaler (Ventolin HFA) 2 puff inhalation Q4H PRN shortness of breath or wheezing #18 grams 04/30/23 [Rx Confirmed 01/21/24] fluticasone 500 mcg-salmeterol 50 mcg/dose blistr powdr for inhalation (Advair Diskus) 1 inh inhalation BID #60 ea 09/10/23 [Rx Confirmed 01/21/24] lorazepam 0.5 mg tablet (Ativan) 0.5 mg PO .X1 PRN anxiety #1 TAB 12/30/23 [Rx Confirmed 01/21/24] PFSH Medical History Asthma HTN (hypertension) Malignant neoplasm of both breasts, estrogen receptor positive Surgical History H/O breast biopsy H/O tubal ligation Hx of appendectomy Previous back surgery Family History Mother Breast cancerFather COPD (chronic obstructive pulmonary disease)Aunt Breast cancer DiabetesFather Heart disease Social History housing: house Smoking Status: Never smoker alcohol intake: current alcohol intake frequency: holidays/special occasions only HPI HPI HPI: 68-year-old female presents for exam as well as discuss possible surgical options. Since patient was last seen she did have her breast MRI which showed the known cancers in bilateral breast as well as called enlarged right axillary lymphadenopathy?previous biopsy of the right axillary lymph node appeared to be more of a cyst as it did collapse after I did the biopsy and biopsy just showed fatty tissue. Patient also had a PET scan did not show any evidence of metastatic disease and no enhancement in the right axilla only in the bilateral breast. Question as the right breast mass extended into the pectoralis muscle. MRI appears that it abuts this area. ROS General General: Yes fatigue Breast Breast: Yes left breast lump, right breast lump, abnormal mammogram and abnormal US; No nipple discharge or breast pain Musc Musculoskeletal: Yes back problems and arthritis Cardio Cardiovascular: Yes high blood pressure Resp Respiratory: Yes shortness of breath, Yes cough and Yes asthma Gastro Gastrointestinal: Yes hemorrhoids Exam Const General: cooperative, healthy appearing and no acute distress [facility] Head: normal to inspection Chest Other: Breast inspection: Inverted left nipple otherwise symmetric Right breast: Fibroglandular tissue, no masses on exam, About 4 x 2 cm mass on exam at 10:00 area, nontender, no change in overlying skin--this area appears to be mobile from the pectoralis muscle No axillary or supraclavicular adenopathy bilaterally--On exam, unable to feel the enlarged right axillary Resp Effort & Inspection: normal respiratory effort Cardio Rate: regular rate GI Inspection: non-distended Palpation: soft Skin General: no rashes or lesions noted Neuro General: patient oriented x3 Extrem General: no clubbing, cyanosis or edema Psych Affect: normal affect Assessment and Plan Assessment and Plan (1) Invasive ductal carcinoma of breast: Status: Acute (2) Invasive lobular carcinoma of left breast in female: Status: Acute (3) Malignant neoplasm of both breasts, estrogen receptor positive: Status: Acute Qualifiers: Breast location: unspecified site of breast Patient sex: female Qualified Code(s): C50.911 - Malignant neoplasm of unspecified site of right female breast; C50.912 - Malignant neoplasm of unspecified site of left female breast; Z17.0 - Estrogen receptor positive status [ER+] (4) Mass of right axilla: Status: Acute Comment: Did collapse with core biopsy 12/04/2023 may be just a cyst and not a lymph node, enlarged on MRI did not enhance on PET scan. Plan Did review MRI personally and with the patient and her sister. I do believe that it only abuts the pectoralis muscle on the right and it is also feels mobile on exam. They are both aware that if there were positive margins would plan to radiate that area. I have given the patient options for initial surgical treatment. Options are the following: lumpectomy followed by radiation therapy(-only really an option for the left however patient is not interested) Vs. mastectomy vs. mastectomy followed by immediate reconstruction. Patient is not interested in reconstruction. I have described the procedures to the patient. I have described the advantages and disadvantages of the options, but I have told the patient that among the options, the survival rate for breast cancer is the same. I have told the patient that with all the surgeries that a sentinel lymph node biopsy is required. I have described the procedure of sentinel lymph node biopsy to the patient. I have told the patient that if the biopsy is positive for metastatic disease (>2 LN positive), then a full axillary lymph node dissection is required. I have told the patient that adjuvant chemotherapy will be required should the lymph nodes reveal metastatic disease. Also, a full lymph node dissection will increase the risk for lymphedema, especially if there are 4 or more lymph nodes positive for metastatic disease and radiation to the axilla is also required. I have told the patient the risks of surgery, including but not limited to: infection, bleeding, scar tissue, seroma and persistent seroma, lymph leak, injury to any blood vessels, injury to any nerves (particularly the long thoracic, the thoracodorsal, and the second intercostal brachial and the resultant sequelae), lymphedema, cosmetic deformity, dysesthesias, wound in fections, further surgery (especially if margins are not clear), complications of anesthesia, etc. the patient understands. Patient is interested in undergoing bilateral mastectomies with sentinel lymph node biopsy, injection of blue dye and radiotracer and possible axillary lymph node dissection. All patient's and patient's sister's questions were answered and they have no further questions. Melissa Stinson M.D. Pager: [phone] [facility] [address] [place] [address], [address] [place] [address] Office: [phone] Coding Level of Care Code Off vis,est,level 4 Diagnoses Invasive ductal carcinoma of breast C50.919 Invasive lobular carcinoma of left breast in female C50.912 Bilateral malignant neoplasm of breast in female, estrogen receptor positive, unspecified site of breast C50.911; C50.912; Z17.0 Breast location: unspecified site of breast Patient sex: female Mass of right axilla R22.31 01/22/24 2170 <Electronically signed by Melissa Stinson MD> Date Melissa Stinson MD
[2024-02-06] MEDS: Lactated Ringers 1,000 ML 15 ML IV ×2 (09:03→14:31)
[2024-02-06] MEDS: Cefazolin 2 GM in 0.9% Normal Saline (100mL Bag) 100 ML IV (10:34)
[2024-02-06] MEDS: Methylene Blue 1% 100 MG/10 ML VIAL (10:44)
[2024-02-06] MEDS: 0.9% Normal Saline (Pres. free 10 ML Vial (10:44)
--- NOTE | 2024-02-06 13:46 | OP.PCM_ITS ---
Report of Operation Date of Procedure: 02/06/24 Pre-Operative Diagnosis: Bilateral breast cancer Post-Operative Diagnosis: Same Surgery/Procedure Performed:: Bilateral mastectomies and sentinel lymph node biopsies, injection of nuclear tracer and methylene blue bilaterally Surgeon: Melissa Stinson candy maker: Luciano Ricks Type of Anesthesia: General/Supplemental Anesthesiologist: Roberto Carlos Mata Special Medications: Ancef 2 g IV x 2?redosed Specimen's removed: 1.Right sentinel lymph node, 2.additional right sentinel lymph node, 3.right mastectomy, 4.left sentinel lymph nodes, 5.left mastectomy Drains: MAIRA x 4-2 bilaterally, Stone 250 cc Estimated Blood Loss (mL): 40 cc Description of Procedure: Synoptic Portion: Bilaterally-same answers Element Response Options Operation performed with curative intent. Yes Tracer(s) used to identify sentinel nodes in the upfront surgery (non- neoadjuvant) setting (select all that apply). Dye; Radioactive tracer Tracer(s) used to identify sentinel nodes in the neoadjuvant setting (select all that apply). N/A. All nodes (colored or non-colored) present at the end of a dye-filled lymphatic channel were removed. Yes All significantly radioactive nodes were removed. Yes All palpably suspicious nodes were removed. Yes; Biopsy-proven positive nodes marked with clips prior to chemotherapy were identified and removed. N/A. ---- In AC bilateral breast periareolar were injected with TC-9 9 sulfur colloid. > 90 minutes later the patient was taken to the operating room and general anesthesia was induced. 5 cc of methylene blue dye was injected in the 4 quadrants periareolar along with 10 cc of normal saline-bilateral breasts. This was massaged gently for 5 minutes. The bilateral breast and axilla were prepped and draped in usual sterile fashion. A timeout was completed verifying correct patient, procedure, site, positioning, special equipment prior to beginning procedure. Handheld gamma probe was used to identify the location of the hottest spot in the axilla. Prior to the incision, the counts were 40 on the right, 11 on the left. The incision was made-right?hot/blue (positive on frozen?10 count 1912) 2 additional palpable nodes also taken on the right negative. Left two blue nodes and 1 hot node with a 10 count of 606. The bed of the node measured 4 bilaterally counts. No additional blue or hot nodes were detected. Bilateral mastectomies were done similarly. Skin incision was made that encompassed the nipple areolar complex and the previous biopsy scar in past and generally oblique direction across the breast. Flaps are raised in the avascular plane between the prescription he continues tissues in the breast tissue from the clavicle superiorly, the sternum medially, the anterior rectus sheath inferiorly, and posterolateral border of the pectoralis major muscle laterally. Hemostasis was achieved in the flaps. Next, the breast tissue and underlying pectoralis fascia were excised from the pectoralis major muscle, progressing from medial to laterally. At the lateral border of the pectoralis major muscle, the breast tissue was swung laterally and the lateral pedicle identified with the breast tissue gave way to the fat of the axilla. The lateral pedicle was incised and the specimen removed and oriented for pathology. The wound was irrigated and hemostasis was achieved. Closed suction drains were brought into the operating field through a separate stab incision and sutured to skin with 3-0 nylon suture. The incision was closed with interrupted 2-0 Vicryl to the simultaneously followed by a subcuticular layer of 4-0 Monocryl and Steri-Strips. Telfa, ABD fluffs in Manuel wrap were placed. The patient tolerated procedure well and sent to postanesthesia care unit in stable condition. Complications none
[2024-02-06] MEDS: Bupivacaine 0.5% PF 10 ML VIAL (14:00)
[2024-02-06] MEDS: Pantoprazole Sodium 40 MG in 0.9% Normal Saline (100mL MB+) 100 ML 330 MG IV (16:29)
[2024-02-06] MEDS: Mesalamine 1.2 GM Tablet 2.4 GM PO (17:17)
[2024-02-06] MEDS: Budesonide Respules 0.5 MG/2 ML AMPUL.NEB. INHALATION (19:48)
[2024-02-06] MEDS: Albuterol 2.5 MG/3 ML VIAL.NEB. INHALATION (19:48)
[2024-02-06] MEDS: Lactated Ringers 1,000 ML 100 ML IV (20:12)
[2024-02-06] MEDS: Atorvastatin Calcium 20 MG Tablet PO (22:52)
[2024-02-06] MEDS: Morphine 2 MG/ML Syringe IV (22:57)
[2024-02-07 03:54] VITALS: BP 149/80; PULSE 62; RESP 15; TEMP 36.7; O2SAT 97
[2024-02-07 04:00] VITALS: RESP 15
[2024-02-07] MEDS: Morphine 2 MG/ML Syringe IV (04:07)
--- NOTE | 2024-02-07 05:48 | NURSING ---
0000: MAIRA DRAIN OUTPUT. RIGHT 1=10, R 2=20. LEFT 1=10, L2=10
[2024-02-07 06:32] LABS: Absolute Lymphocyte Count 1.54 X10^3/uL (0.83-4.51); Absolute Neutrophil Count 11.1 X10^3/uL (2.0-7.7); Basophil# 0.01 X10^3/uL; Basophil% 0.1 % (0-1); Hemoglobin 10.8 g/dL (12.0-15.0); Lymphocyte # 1.54 X10^3/ul (0.83-4.51); Lymphocyte % 11.4 % (19-41); Mean Corp Hgb Conc 31.8 g/dL (32-36); Mean Corpuscular Hgb 28.5 pg (27.0-32.0); Mean Corpuscular Volume 89.7 fL (81-99); Monocyte# 0.79 X10^3/uL; Monocyte% 5.8 % (0-10); NRBC Flagged by Analyzer 0 % (0-5); Neutrophil # 11.12 X10^3/uL (2.7-7.7); Platelet Count 351 K/mm3 (150-450); RBC Distribution Width CV 16.2 % (11.6-14.6); RBC Distribution Width SD 53.4 fl (35.1-43.9); Red Blood Count 3.79 M/mm3 (4.2-5.4); White Blood Count 13.6 K/mm3 (4.4-11.0)
--- NOTE | 2024-02-07 06:48 | NURSING ---
AM MAIRA TOTALS: LEFT 1=0. LEFT 2=10. RIGHT 1=10, RIGHT 2= 10.
[2024-02-07 07:01] LABS: Anion Gap 4 (5-15); BUN 7 mg/dL (7-18); BUN/Creat Ratio 12.8 RATIO (10-20); Calcium,Total 8.7 mg/dL (8.5-10.1); Chloride 109 mmol/L (98-107); Creatinine, Serum 0.54 mg/dL (0.55-1.02); EST Glomerular Filtration Rate 118 mL/min (>60); Est Glom Filt Rate - Afr Amer 143 mL/min (>60); Glucose 136 mg/dL (74-106); Potassium 3.9 mmol/L (3.5-5.1); Sodium Level 139 mmol/L (136-145)
[2024-02-07 07:07] VITALS: PULSE 77; RESP 18
[2024-02-07] MEDS: Budesonide Respules 0.5 MG/2 ML AMPUL.NEB. INHALATION (07:31)
[2024-02-07] MEDS: Albuterol 2.5 MG/3 ML VIAL.NEB. INHALATION (07:31)
--- NOTE | 2024-02-07 07:54 | PN.SURG_ITS ---
Subjective Subjective Patient to get some morphine during the night for pain control. Otherwise patient is doing well JPs sanguinous, Stone to be removed this morning Objective Data Objective Data Vital Signs: Vital Signs Temp Pulse Resp BP Pulse Ox O2 Del Method O2 Flow Rate 98.0 F 62 15 149/80 H 97 Room Air 1 02/07/24 03:54 02/07/24 03:54 02/07/24 04:00 02/07/24 03:54 02/07/24 03:54 02/07/24 04:00 02/07/24 03:54 Oxygen Flow Rate (L/min) 1 Oxygen Delivery Method Room Air Weight: 143 lb 4.807 oz Body Mass Index (BMI) 27.1 Intake & Output: Intake and Output for Last 24 Hours 02/05/24 02/06/24 02/07/24 23:59 23:59 23:59 Intake Total 2498.25 / 2798.25 500 / 500 Output Total 759 / 2759 3300 / 3300 Balance 1739.25 / 39.25 -2800 / -2800 Lab / Micro Data 02/07/24 05:56 02/07/24 05:56 Labs: Laboratory Results - last 24 hr 02/07/24 05:56: WBC 13.6 H, RBC 3.79 L, Hgb 10.8 L, Hct 34.0 L, MCV 89.7, MCH 28.5, MCHC 31.8 L, RDW Std Deviation 53.4 H, RDW Coeff of Dequan 16.2 H, Plt Count 351, MPV 10.0, Immature Gran % (Auto) 0.700, Neut % (Auto) 82.0 H, Lymph % (Auto) 11.4 L, [place] % (Auto) 5.8, Eos % (Auto) 0.0, Baso % (Auto) 0.1, Absolute Neuts (auto) 11.1 H, Absolute Lymphs (auto) 1.54, Nucleated RBC % 0, Sodium 139, Potassium 3.9, Chloride 109 H, Carbon Dioxide 26.0, Anion Gap 4 L, BUN 7, Creatinine 0.54 L, Estim Creat Clear Calc 58.90, Est GFR (MDRD) Af Amer 143, Est GFR (MDRD) Non-Af 118, BUN/Creatinine Ratio 12.8, Glucose 136 H, Calcium 8.7 Radiography Diagnostic Testing: Radiology Impression [place] Node 02/06/24 08:16 IMPRESSION: 1.2 mCi of technetium level sulfur colloid was injected subcutaneously in 4 equal aliquots in the periareolar region for sentinel node imaging. Electronically Signed: Duc Hayes MD at 9:51 EDT , [place] Node 02/06/24 08:16 IMPRESSION: 1.2 mCi of technetium labeled sulfur colloid was injected subcutaneously in the periareolar region for sentinel node imaging. Electronically Signed: Duc Hayes MD at 9:52 EDT , Physical Exam Narrative Patient's bilateral mastectomy incisions healing well clean dry and intact with Steri-Strips and Manuel wrap. JPs x 4 sanguinous Resp normal respiratory effort Cardio regular rate Assessment & Plan Assessment/Plan (1) S/P bilateral mastectomy: PLAN: Plan Patient tolerating diet Will switch to p.o. pain meds make sure pain is controlled prior to DC. CHA Ruvalcabaey make sure patient can void MAIRA teaching Melissa Stinson M.D. Pager: [phone] [facility] [address] [place] [address], [facility], [address] [place] [address] Office: [phone]
[2024-02-07 08:07] VITALS: O2SAT 96
[2024-02-07] MEDS: Mesalamine 1.2 GM Tablet 2.4 GM PO (08:24)
[2024-02-07] MEDS: Montelukast 10 MG Tablet PO (08:24)
[2024-02-07] MEDS: amLODIPine 10 MG Tablet PO (08:24)
[2024-02-07] MEDS: Lisinopril 40 MG Tablet PO (08:24)
[2024-02-07] MEDS: Pantoprazole Sodium 40 MG in 0.9% Normal Saline (100mL MB+) 100 ML 330 MG IV (08:27)
[2024-02-07 08:35] VITALS: BP 117/61; PULSE 76; RESP 16; TEMP 36.7; O2SAT 94
--- NOTE | 2024-02-07 08:59 | DCINST_ITS ---
Discharge Instructions Procedure Breast Surgery Diet Discharge Diet: No restrictions Activity Discharge Activity: May Not Drive (while taking narcotic pain meds.) May shower in (days): 1 Lifting Restrictions: 10 pounds for 2 weeks on the right Dressing / Incision Call your doctor if your incision/area has: Continuous Slow Oozing, Sudden Increased Bleeding, Increased Pain/ Swelling and Increased Redness Call your doctor if you observe: Fever of 101 or Higher Suture Line Care: Avoid Pulling/Pushing Remove Dressing in: 1 day (bulky dressing--change and replace ABD pads/ CHRISTINE Wrap) Additional Dressing/Incision Instructions:: Remove bulky dressing tomorrow. ok to remove CHRISTINE Wrap for redressing but replace CHRISTINE wrap after Follow Up Care Please Follow Up With: Melissa Stinson MD When: Please call [phone] for an appointment to be seen Friday 02/09 for MAIRA removal Test Results: Test results from this visit will be discussed in further detail at your follow- up appointment, if applicable. Discharge Plan Admission Admit Date/Time: 02/06/24 14:06 Attending Provider: Melissa Stinson Primary Care Provider: Kannan Rizvi Discharge Orders/Prescriptions Prescriptions: New hydrocodone-acetaminophen 5-325 mg tablet 1 tab PO Q6H PRN (Reason: pain) 3 Days Qty: 14 0RF Continued rosuvastatin 10 mg tablet 10 mg PO DAILY omeprazole 10 mg capsule,delayed release(DR/EC) 10 mg PO DAILY amlodipine 10 mg tablet 10 mg PO DAILY mesalamine 1.2 gram tablet,delayed release (DR/EC) 2.4 g PO BID montelukast 10 mg tablet 10 mg PO DAILY Qty: 30 11RF lisinopril 40 mg tablet 40 mg PO DAILY fexofenadine [Aller-Fex] 180 mg tablet 180 mg PO DAILY albuterol sulfate [Ventolin HFA] 90 mcg/actuation HFA aerosol inhaler 2 puff inhalation Q4H PRN (Reason: shortness of breath or wheezing) Qty: 18 6RF fluticasone propion-salmeterol [Advair Diskus] 500-50 mcg/dose blister with device 1 inh inhalation BID Qty: 60 6RF Referrals / Follow Up: Kannan Rizvi MD [Primary Care Provider] - Disposition Disposition (needs filled in before D/C Order can be placed): Home, Self Care
[2024-02-07] MEDS: HYDROcodone Bitartrate/Apap 5/325 Tablet PO (09:24)
--- NOTE | 2024-02-07 10:32 | NURSING ---
educated pt and sister on basim care, and dressing changes
== END 2024-02-07 11:38 | disposition home or self-care (01) ==
LOC: SDC 14:33 → MS3 14:33
PROVIDERS: Admitting Provider Surgery; PCP Family Medicine; Referring Provider Surgery; Visit Provider Surgery
PROC: (CPT 19307; principal; 2024-02-06 10:50)
DX: C50.912 Malignant neoplasm of unspecified site of left female breast (principal); C77.3 Secondary and unspecified malignant neoplasm of axilla and upper limb lymph nodes; C50.911 Malignant neoplasm of unspecified site of right female breast; Z80.3 Family history of malignant neoplasm of breast; Z17.0 Estrogen receptor positive status [ER+]; I10 Essential (primary) hypertension; Z79.899 Other long term (current) drug therapy; Z79.51 Long term (current) use of inhaled steroids; J45.909 Unspecified asthma, uncomplicated; E78.00 Pure hypercholesterolemia, unspecified
CPT/HCPCS: 19303; 38500; 00400; 36415; 38792; 80048; 85025; 88305; 88307; 88331; 88332; 88341; 88342; 93005; 94640; 94668; 96361; 96365; 96366; 96375; 96376; 99221; A4648; A9541; J7120; G0378; J2405; J3490

== ENCOUNTER 2024-04-27 18:38 | Inpatient (IN) | payer MEDICARE, SELFPAY ==
[2024-04-27 18:39] VITALS: BP 127/76; PULSE 82; RESP 16; TEMP 36.8; O2SAT 99; BMI 28.2
--- NOTE | 2024-04-27 19:23 | EX.ED.DYSGE1 ---
HPI History of Present Illness Chief Complaint: Cellulitis Detail of Chief Complaint: Cat bite right hand yesterday. Informant: patient Onset/Context/Timing Onset: Today and Yesterday Context: Gradual Onset Timing: Continuous Current Severity: Moderate Maximum Severity: Moderate Narrative Narrative: 68-year-old female history of breast cancer and hypertension. Was bitten by one of her cats yesterday as she went to pick it up the put in the cage. She saw her primary care physician who called her in Augmentin. But the swelling in the hands gotten worse. She denies any fever or chills. She is not diabetic. She is on no immunosuppressants. Prior similar symptoms: No Recent Illness/Hospitalization: No PFSH PFS Medical History Wears glasses Post-menopausal History of steroid therapy Anemia High cholesterol Back pain Ulcerative colitis Gastric reflux Non-smoker Shortness of breath on exertion Chronic cough Leg cramps Malignant neoplasm of both breasts, estrogen receptor positive HTN (hypertension) Asthma Home Medications ?Medication ?Instructions ?Recorded ?Last Taken ?Type amlodipine 10 mg tablet 10 mg PO DAILY 01/02/23 02/05/24 20:35 History mesalamine 1.2 gram tablet,delayed 2.4 g PO BID 01/02/23 02/05/24 20:35 History release omeprazole 10 mg capsule,delayed 10 mg PO DAILY 01/02/23 02/06/24 06:00 History release rosuvastatin 10 mg tablet 10 mg PO DAILY 01/02/23 Unknown History albuterol sulfate 90 mcg/actuation 2 puff inhalation Q4H PRN 04/30/23 Unknown Rx aerosol inhaler (Ventolin HFA) shortness of breath or wheezing #18 grams fluticasone 500 mcg-salmeterol 50 1 inh inhalation BID #60 ea 09/10/23 02/06/24 06:00 Rx mcg/dose blistr powdr for inhalation (Advair Diskus) fexofenadine 180 mg tablet 180 mg PO DAILY 01/23/24 Unknown History (Aller-Fex) lisinopril 40 mg tablet 40 mg PO DAILY 01/23/24 02/06/24 06:00 History montelukast 10 mg tablet 10 mg PO DAILY #90 tabs 02/25/24 Unknown Rx Allergy/AdvReac Type Severity Reaction Status Date / Time Sulfa (Sulfonamide Allergy Mild Rash Verified 04/27/24 18:41 Antibiotics) Family History Mother Breast cancer Father COPD (chronic obstructive pulmonary disease) Aunt Breast cancer Diabetes Father Heart disease Surgical History H/O bilateral mastectomy H/O breast biopsy Previous back surgery Hx of appendectomy H/O tubal ligation Social History housing: house Smoking Status: Never smoker alcohol intake: current alcohol intake frequency: holidays/special occasions only ROS ROS ED ROS Narrative Denies recent illness. Right hand pain and swelling post cat bite. Review of Systems ROS Unobtainable: Denies due to encephalopathy Constitutional Constitutional ED: Denies chills or fever(s) Eyes Eyes: Denies blurry vision ENT ENT ED: Denies ear pain Cardiovascular Cardiovascular: Denies chest pain Respiratory/Chest Respiratory/Chest: Denies cough or dyspnea Gastrointestinal Gastrointestinal: Denies abdominal pain Genitourinary Genitourinary ED: Denies dysuria or hematuria Musculoskeletal Musculoskeletal: Denies arthralgias or back pain Integumentary Denies abscess or Abrasions Neurologic Neurologic: Denies headache(s) or paresthesias Psychiatric Psychiatric: Denies anxiety or depression Endocrine Endocrinology: Denies cold intolerance Allergic/Immunologic Allergic/Immunologic ED: Denies mouth swelling, tongue swelling or urticaria EXAM Physical Exam Narrative Exam Narrative: 68-year-old female no acute distress vital signs stable afebrile. H EENT exam unremarkable. Neck nontender. Lungs clear. Heart regular rhythm. Abdomen soft. Moving all 4 extremities. Right hand cellulitic and swollen. She is able to flex and extend the hand. With some discomfort. No specific signs of tenosynovitis. There is no lymphangitic streaking. She has no axillary lymphadenopathy. Right hand neurovascular intact. Cat bite puncture wounds along the MCP of the right index finger. Const Vital Signs: 04/27/24 18:39 04/27/24 19:40 04/27/24 19:50 Temperature 98.2 F 97.2 F L 97.2 F L Temperature Source Temporal Temporal Pulse Rate 82 73 85 Respiratory Rate 16 18 18 Blood Pressure 127/76 H 135/89 H 135/89 H Blood Pressure Mean 93 104 104 Pulse Ox 99 98 98 Oxygen Delivery Method Room Air Room Air Positive well nourished and well developed; Negative for cachectic, contractures or unkempt General Appearance ED: well developed; Negative for unkempt, cachectic, contractures, cyanotic, diaphoretic, NAD or pallor Nutritional Appearance: Negative for cachectic HEENT Reports moist mucous membranes Negative for trauma or tenderness Eyes PERRL and EOMs intact bilaterally General Eye ED: Negative for pale conjunctiva or scleral icterus Neck no lymphadenopathy, supple and no JVD General: Negative for tenderness Chest Wall inspection of chest normal and palpation of chest normal Resp normal respiratory effort and clear to auscultation bilaterally Effort and Inspection: Negative for retractions Auscultation: Negative for rales, rhonchi or wheezes Cardio regular rate, regular rhythm, S1 normal heart sound, S2 normal heart sound and no murmurs Palpation: Negative for palpable S3 or palpable S4 Rate: Negative for bradycardia or tachycardic Rhythm: Negative for abnormal rhythm GI normal to inspection, nondistended, normoactive bowel sounds, non-tender, non-distended and no masses Inspection: Negative for abdominal distention Auscultation: normoactive bowel sounds Palpation: soft; Negative for tender, guarding or rebound tenderness present Back/Spine no CVA tenderness Extremity Negative for normal to inspection Extremity Narrative: Right hand edema. Cellulitis. Able to flex and extend. Has mild tenderness. No specific tenosynovitis. No lymphangitic streaking. No axillary lymphadenopathy. Consistent with a cellulitis of the hand post cat bite. General Extremety ED: Yes edema and tenderness General Extremity: edema Neuro oriented x3 and CN's II-XII intact bilaterally Sensorium / Orientation: alert Motor Exam: strength 5/5 throughout Psych mental status grossly normal Appearance: Negative for unkempt Attitude: No agitated Mood & Affect: Negative for depressed, anxious or tearful Skin No no rashes or lesions noted and No no wounds Skin Narrative: Cat bite cellulitis right hand. General Skin Exam: Negative for jaundice or pallor Lesions: No lesion noted Rashes: rashes noted MDM MDM MDM Narrative Medical decision making narrative: 68-year-old female bit by her cat yesterday when she was trying to cage it. Has a right hand cat bite cellulitis. No obvious tenosynovitis at this time. She will be started on IV Unasyn. Screening labs, x-ray will be obtained. She does not want a thing for pain at this time. I have already spoken to orthopedic on-call Dr. German he will be back up for the patient and I will have the hospitalist admit her. Repeat exam unchanged at 8:53 PM. Hospitalist on page for admission. History & Record Review Discussion w/independent historian: Patient Additional record(s) reviewed:: Prior inpatient record, Prior outpatient record, Prior ED visit and Prior labs Lab Data Attestation: I reviewed the patient's lab results. Lab results narrative: CBC shows a normal white count 9.8. H&H 10.7 and 33.7. Platelets 496. Electrolytes show gap 4. Normal BUN and creatinine. Glucose 96. Labs: Laboratory Results - last 24 hr 04/27/24 19:34 WBC 9.8 RBC 3.91 L Hgb 10.7 L Hct 33.7 L MCV 86.2 MCH 27.4 MCHC 31.8 L RDW Std Deviation 48.1 H RDW Coeff of Dequan 15.4 H Plt Count 496 H MPV 9.1 Immature Gran % (Auto) 0.500 Neut % (Auto) 68.4 Lymph % (Auto) 19.9 [place] % (Auto) 9.0 Eos % (Auto) 1.6 Baso % (Auto) 0.6 Absolute Neuts (auto) 6.7 Absolute Lymphs (auto) 1.95 Nucleated RBC % 0 Sodium 138 Potassium 3.8 Chloride 106 Carbon Dioxide 28.0 Anion Gap 4 L BUN 12 Creatinine 0.68 Estim Creat Clear Calc 60.10 Est GFR (MDRD) Af Amer 111 Est GFR (MDRD) Non-Af 92 BUN/Creatinine Ratio 17.6 Glucose 96 Calcium 9.5 Radiography Diagnostic Testing: Clinical Impression(s) from Imaging Studies Hand X-Ray 04/27/24 19:40 IMPRESSION: Diffuse soft tissue swelling. No acute fracture or radiopaque foreign body. Degenerative change. Electronically Signed: Zenon Lovelace DO at 20:05 EDT , Right hand x-ray, 3 views, interpreted by myself shows soft tissue swelling. No fracture or dislocation. No subcu gas. Discharge Plan Triage Chief Complaint: Cellulitis ED Provider: Guille Burgos Dx/Rx/DC Orders Clinical Impression: Cellulitis of hand, right, Cat bite, History of breast cancer, History of hypertension Prescriptions: No Action rosuvastatin 10 mg tablet 10 mg PO DAILY omeprazole 10 mg capsule,delayed release(DR/EC) 10 mg PO DAILY amlodipine 10 mg tablet 10 mg PO DAILY mesalamine 1.2 gram tablet,delayed release (DR/EC) 2.4 g PO BID montelukast 10 mg tablet 10 mg PO DAILY Qty: 90 3RF lisinopril 40 mg tablet 40 mg PO DAILY fexofenadine [Aller-Fex] 180 mg tablet 180 mg PO DAILY albuterol sulfate [Ventolin HFA] 90 mcg/actuation HFA aerosol inhaler 2 puff inhalation Q4H PRN (Reason: shortness of breath or wheezing) Qty: 18 6RF fluticasone propion-salmeterol [Advair Diskus] 500-50 mcg/dose blister with device 1 inh inhalation BID Qty: 60 6RF Primary Care Provider: Kannan Rizvi Referrals: Kannan Rizvi MD [Primary Care Provider] - Print Language: [place] Disposition Disposition: Acute Care Hospital [facility]
[2024-04-27 19:40] VITALS: BP 135/89; PULSE 73; RESP 18; TEMP 36.2; O2SAT 98
--- NOTE | 2024-04-27 19:40 | RAD_ITS ---
EXAM: XR RIGHT HAND COMPLETE, 3 OR MORE VIEWS CLINICAL INDICATION: cat bite TECHNIQUE: Frontal, lateral and oblique views of the right hand. COMPARISON: No relevant prior studies available. FINDINGS: BONES/JOINTS: Diffuse intercarpal, metacarpal, and interphalangeal joint arthrosis. No acute fracture. No subluxation. Normal alignment. No sclerotic or destructive changes observed. SOFT TISSUES: Diffuse soft tissue swelling. No radiopaque foreign body. RAD/Hand Min 3 Views IMPRESSION: Diffuse soft tissue swelling. No acute fracture or radiopaque foreign body. Degenerative change. Electronically Signed: Zenon Lovelace DO at 20:05 EDT ,
[2024-04-27 19:50] VITALS: BP 135/89; PULSE 85; RESP 18; TEMP 36.2; O2SAT 98
[2024-04-27 19:51] LABS: Absolute Lymphocyte Count 1.95 X10^3/uL (0.83-4.51); Absolute Neutrophil Count 6.7 X10^3/uL (2.0-7.7); Basophil# 0.06 X10^3/uL; Basophil% 0.6 % (0-1); Eosinophil# 0.16 X10^3/uL; Eosinophils% 1.6 % (0-5); Hematocrit 33.7 % (37-47); Hemoglobin 10.7 g/dL (12.0-15.0); Lymphocyte # 1.95 X10^3/ul (0.83-4.51); Lymphocyte % 19.9 % (19-41); Mean Corp Hgb Conc 31.8 g/dL (32-36); Mean Corpuscular Hgb 27.4 pg (27.0-32.0); Mean Corpuscular Volume 86.2 fL (81-99); Mean Platelet Vol. 9.1 fl (6.2-12.0); Monocyte# 0.88 X10^3/uL; NRBC Flagged by Analyzer 0 % (0-5); Neutrophil # 6.68 X10^3/uL (2.7-7.7); Neutrophil % 68.4 % (47-70); Platelet Count 496 K/mm3 (150-450); RBC Distribution Width CV 15.4 % (11.6-14.6); RBC Distribution Width SD 48.1 fl (35.1-43.9); Red Blood Count 3.91 M/mm3 (4.2-5.4); White Blood Count 9.8 K/mm3 (4.4-11.0)
[2024-04-27] MEDS: Ampicillin/Sulbactam 3 GM in 0.9% Normal Saline (100mL MB+) 100 ML IV ×2 (19:55→23:52)
[2024-04-27 20:00] VITALS: BP 128/95; PULSE 80; RESP 18; TEMP 37.1; O2SAT 98
[2024-04-27 20:05] LABS: Anion Gap 4 (5-15); BUN 12 mg/dL (7-18); BUN/Creat Ratio 17.6 RATIO (10-20); Calcium,Total 9.5 mg/dL (8.5-10.1); Chloride 106 mmol/L (98-107); Creatinine, Serum 0.68 mg/dL (0.55-1.02); EST Glomerular Filtration Rate 92 mL/min (>60); Est Glom Filt Rate - Afr Amer 111 mL/min (>60); Glucose 96 mg/dL (74-106); Potassium 3.8 mmol/L (3.5-5.1); Sodium Level 138 mmol/L (136-145)
[2024-04-27 20:38] VITALS: BP 133/78; PULSE 81; RESP 16; O2SAT 98
--- NOTE | 2024-04-27 20:59 | HP.PCM.HOS_ITS ---
HPI - General General Date of Admission: 04/27/24 Date of Service: 04/27/24 Chief Complaint: R hand cat bite, worsening edema, pain, redness. HPI Narrative The patient is a 68 y/o F w/ PMHx: Breast CA BL status post bilateral mastectomy following with Dr. Cristina and Dr. Joshi, Chronic anemia, Chronic anemia, HTN, HLD, Asthma with chronic allergic rhinitis, Ulcerative colitis, GERD who presents to the [facility] ED on 04/27/24 with history of unfortunately being bitten by one of her cats the day prior apparently while she was picking it up and trying to put it in a cage with evaluation by her primary care physician and initiation of Augmentin however she notes that the area has become more swollen and erythematous although she is still reportedly able to flex and extend the hand with no lymphangitic streaking reported and no fevers or chills but given worsened appearance prompted ED evaluation. 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 She notes that she was attempting to obtain this cat specifically because it has had several letters and she wants to take it to be fixed. Currently she does note that it is more difficult to make a fist specifically to bend also the index finger and currently rates her pain when she moves it 8-9 out of 10 in severity and when she is not moving it 3-4 out of 10 in severity. She notes when it is at rest it is more aching dull throbbing but more sharp pain elicited with movement. Workup in the ED included T98.2, heart rate 82, BP 127/76, respiratory rate 16, 99% on room air, CBC with WC 9.8, hemoglobin 10.7, MCV 86.2, platelet 496 without marked shift, BMP unremarkable, plain film of the right hand with diffuse soft tissue swelling with no acute fracture or radiopaque foreign body with noted chronic degenerative change. In the ED patient ministered Unasyn 3 g IV x 1. ED discussed case with orthopedic surgery Dr. German he noted amenability to following the patient in house and performing surgery if necessary. [facility] Medical History (Updated 04/27/24 @ 21:[address] Pilar Renae MD) Wears glasses Post-menopausal History of steroid therapy Anemia High cholesterol Back pain Ulcerative colitis Gastric reflux Non-smoker Malignant neoplasm of both breasts, estrogen receptor positive HTN (hypertension) Asthma Home Medications ?Medication ?Instructions ?Recorded ?Last Taken ?Type amlodipine 10 mg tablet 10 mg PO DAILY 01/02/23 02/05/24 20:35 History mesalamine 1.2 gram tablet,delayed 2.4 g PO BID 01/02/23 02/05/24 20:35 History release omeprazole 10 mg capsule,delayed 10 mg PO DAILY 01/02/23 02/06/24 06:00 History release rosuvastatin 10 mg tablet 10 mg PO DAILY 01/02/23 Unknown History albuterol sulfate 90 mcg/actuation 2 puff inhalation Q4H PRN 04/30/23 Unknown Rx aerosol inhaler (Ventolin HFA) shortness of breath or wheezing #18 grams fluticasone 500 mcg-salmeterol 50 1 inh inhalation BID #60 ea 09/10/23 02/06/24 06:00 Rx mcg/dose blistr powdr for inhalation (Advair Diskus) fexofenadine 180 mg tablet 180 mg PO DAILY 01/23/24 Unknown History (Aller-Fex) lisinopril 40 mg tablet 40 mg PO DAILY 01/23/24 02/06/24 06:00 History montelukast 10 mg tablet 10 mg PO DAILY #90 tabs 02/25/24 Unknown Rx Allergy/AdvReac Type Severity Reaction Status Date / Time Sulfa (Sulfonamide Allergy Mild Rash Verified 04/27/24 18:41 Antibiotics) Family History Mother Breast cancer Father COPD (chronic obstructive pulmonary disease) Aunt Breast cancer Diabetes Father Heart disease Surgical History H/O bilateral mastectomy H/O breast biopsy Previous back surgery Hx of appendectomy H/O tubal ligation Social History household members: spouse housing: house Smoking Status: Never smoker alcohol intake: current alcohol intake frequency: holidays/special occasions only substance use type: does not use ROS ROS Narrative Admission Review of Systems: CONSTITUTIONAL: No weight loss, fever, chills. + Weakness or fatigue. HEENT: Eyes: No visual loss, blurred vision, double vision or yellow sclerae. Ears, Nose, Throat: No hearing loss, sneezing, congestion, runny nose or sore throat. SKIN: + Significant right hand edema, status post cat bites and scratches, erythema. CARDIOVASCULAR: No chest pain, chest pressure or chest discomfort, palpitations, edema, orthopnea, syncopal events. RESPIRATORY: No shortness of breath, cough or sputum, wheezing, hemoptysis. GASTROINTESTINAL: + History of ulcerative colitis but no recent flare. No anorexia, nausea, vomiting or diarrhea, abdominal pain, melena, BRBPR. GENITOURINARY: No dysuria, frequency, urgency or retention. NEUROLOGICAL: No headache, dizziness, syncope, paralysis, ataxia, numbness or tingling in the extremities, focal weakness, change in bowel or bladder control, seizure. MUSCULOSKELETAL: + muscle, back pain, joint pain or stiffness. HEMATOLOGIC: + Chronic anemia, no specific history of bleeding or bruising. LYMPHATICS: No enlarged nodes. No history of splenectomy. PSYCHIATRIC: No history of depression or anxiety. ENDOCRINOLOGIC: No reports of sweating, cold or heat intolerance. No polyuria or polydipsia. ALLERGIES: + Asthma with history of allergic rhinitis. Vital Signs Vital Signs Vital Signs: 04/27/24 18:39 04/27/24 19:40 04/27/24 19:50 Temperature 98.2 F 97.2 F L 97.2 F L Temperature Source Temporal Temporal Pulse Rate 82 73 85 Respiratory Rate 16 18 18 Blood Pressure 127/76 H 135/89 H 135/89 H Blood Pressure Mean 93 104 104 Pulse Ox 99 98 98 Oxygen Delivery Method Room Air Room Air 04/27/24 20:00 04/27/24 20:38 Temperature 98.8 F Temperature Source Oral Pulse Rate 80 81 Respiratory Rate 18 16 Blood Pressure 128/95 H 133/78 H Blood Pressure Mean 106 96 Pulse Ox 98 98 Oxygen Delivery Method Room Air Room Air Weight Weight: 149 lb 7 oz Body Mass Index (BMI) 28.2 Physical Exam Narrative Physical Examination: General: Awake, alert, oriented x 3 and cooperative, seated upright in the ED bed, fatigued, uncomfortable with movement of the right hand, reports currently if she does not move it pain 3-4 out of 10 in severity dull aching throb however when she moves it including with evaluation rates pain more sharp 8-9 out of 10 in severity. Skin: Normal color, normal turgor, no icterus, no cyanosis except for notable right hand edema with significant erythema although somewhat able to flex and extend but more difficult along the right index finger with cat bite puncture wound along the MCP especially HEENT: AT/NC, EOMI, PERRLA, MMM, no carotid bruits or JVD noted. Lungs: CTA bilaterally, moderate effort, mild decrease BL bases, no rales, ronchi or wheezing. Heart: Currently regular rate and rhythm; no gallop, rub audible. Abdomen: Soft, NTTP, ND, normal BS, no appreciated HSM. Extremities: No cyanosis, no clubbing, see skin. 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 Psychiatric: Affect appears fatigued otherwise normal, no acute evidence of depressive or anxiety feelings. Results Lab / Micro Data 04/27/24 19:34 04/27/24 19:34 Labs: Laboratory Results - last 24 hr 04/27/24 19:34: WBC 9.8, RBC 3.91 L, Hgb 10.7 L, Hct 33.7 L, MCV 86.2, MCH 27.4, MCHC 31.8 L, RDW Std Deviation 48.1 H, RDW Coeff of Dequan 15.4 H, Plt Count 496 H, MPV 9.1, Immature Gran % (Auto) 0.500, Neut % (Auto) 68.4, Lymph % (Auto) 19.9, [place] % (Auto) 9.0, Eos % (Auto) 1.6, Baso % (Auto) 0.6, Absolute Neuts (auto) 6.7, Absolute Lymphs (auto) 1.95, Nucleated RBC % 0, Sodium 138, Potassium 3.8, Chloride 106, Carbon Dioxide 28.0, Anion Gap 4 L, BUN 12, Creatinine 0.68, Estim Creat Clear Calc 60.10, Est GFR (MDRD) Af Amer 111, Est GFR (MDRD) Non-Af 92, BUN/Creatinine Ratio 17.6, Glucose 96, Calcium 9.5 Imaging Radiology Impression Hand X-Ray 07/09/24 19:40 IMPRESSION: Diffuse soft tissue swelling. No acute fracture or radiopaque foreign body. Degenerative change. Electronically Signed: Zenon Lovelace DO at 20:05 EDT , Assessment & Plan Assessment/Plan (1) Cellulitis of hand, right: (2) Cat bite: PLAN: Plan The patient is a 68 y/o F w/ PMHx: Breast CA BL status post bilateral mastectomy following with Dr. Cristina and Dr. Joshi, Chronic anemia, Chronic anemia, HTN, HLD, Asthma with chronic allergic rhinitis, Ulcerative colitis, GERD who presents to the [facility] ED on 04/27/24 with history of unfortunately being bitten by one of her cats the day prior apparently while she was picking it up and trying to put it in a cage with evaluation by her primary care physician and initiation of Augmentin however she notes that the area has become more swollen and erythematous although she is still reportedly able to flex and extend the hand with no lymphangitic streaking reported and no fevers or chills but given worsened appearance prompted ED evaluation. #1. Acute R Hand Cellulitis, Cat Bite, Failed outpatient Abx therapy: Will admit to [facility], maintain on IV Unasyn 3 gm q 6 hours, will continue consultation with Orthopedic surgery Dr. German, ESR/CRP requested, if discharge onset will obtain Wound Cx/Wound MRSA PCR, plan repeat CBC in AM, continue affected extremity elevation above heart when seated and in bed, monitor erythema outline with VS checks, pain regimen/antiemetic regimen as needed. #2. 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 Stinson, most recent evaluation noted 04/14/[address] Joshi and prior to this Dr. Cristina 04/01/2024. From radiation oncology noted plan for ongoing postmastectomy radiation therapy to the right chest wall and regional lymph nodes. From oncology noted plan for systemic adjuvant hormonal therapy with aromatase inhibitor for 5 to 10 years. Encourage continued outpatient follow-up with right unk and oncology as previously arranged. #3. Chronic asthma with allergic rhinitis: We will temporarily hold home inhaler in the interim transition to ATC budesonide, PRN albuterol, HOB, IS parameters, continue home montelukast and fexofenadine hydrochloride min. #4. Chronic normocytic anemia: Admission hemoglobin 10.7, MCV 86.2, baseline hemoglobin appears more recently -, stable, continue to trend #5. Hypertension: Continue home regimen including lisinopril, amlodipine, PRN hydralazine. #6. Hyperlipidemia: We will continue patient on statin therapy. #7. Ulcerative colitis: Patient on chronic mesalamine, encourage continued outpatient follow-up with GI as previously arranged #8. GERD: We will continue patient PPI. #9. DVT prophylaxis: Lovenox. #10. CODE status: Patient VICKIE is her sister Raven and living will is currently in place. Discussed CODE status at length including difference between FULL code, DNR-CCA and DNR-CC status. Following discussions about the differences in these status, requested Full Code status. Advanced Care Planning Face to Face Time: 16 minutes. Charges/Coding Visit Charges Inpatient E&M: 47101 Init Hosp L3 Procedures Hospitalists Procedures: 65776 Advncd Care Plan 30 Min
[2024-04-27 21:37] LABS: Erythrocyte Sedimentation Rate 26 mm/hr (0-30)
[2024-04-27 22:00] VITALS: BP 138/72; PULSE 78; RESP 12; TEMP 36.7; O2SAT 99
[2024-04-27 22:27] VITALS: BMI 28.0
[2024-04-27] MEDS: 0.9% Normal Saline (1000mL) 1,000 ML 100 ML IV (23:30)
[2024-04-27] MEDS: Mesalamine 1.2 GM Tablet 2.4 GM PO (23:53)
[2024-04-28] MEDS: 0.9% Saline Lock 10 ML Syringe IV (00:02)
[2024-04-28 05:00] VITALS: BP 131/74; PULSE 83; RESP 14; TEMP 36.6; O2SAT 94
[2024-04-28] MEDS: Ampicillin/Sulbactam 3 GM in 0.9% Normal Saline (100mL MB+) 100 ML IV ×3 (05:29→17:35)
[2024-04-28 05:42] VITALS: BMI 28.0
--- NOTE | 2024-04-28 07:16 | PCM.PN.HOSP ---
Reason for Visit Reason for Visit: Diagnoses Cellulitis of right upper limb (04/27/24) Bitten by cat, initial encounter (04/27/24) Subjective Subjective Patient is a 68-year-old lady who presented with right hand swelling and erythema following cat bites and having failed antibiotic therapy as outpatient Objective Data Objective Data Vital Signs: Vital Signs Temp Pulse Resp BP Pulse Ox O2 Del Method 98 F 83 14 131/74 H 94 Room Air 04/28/24 05:00 04/28/24 05:00 04/28/24 05:00 04/28/24 05:00 04/28/24 05:00 04/28/24 05:00 Oxygen Delivery Method Room Air Weight: 67.5 kg Body Mass Index (BMI) 28.0 Intake & Output: Intake and Output for Last 24 Hours 04/26/24 04/27/24 04/28/24 23:59 23:59 23:59 Intake Total 362 / 362 824 / 824 Balance 362 / 362 824 / 824 Lab / Micro Data 04/28/24 06:58 04/28/24 06:58 Labs: Laboratory Results - last 24 hr 04/27/24 19:34: WBC 9.8, RBC 3.91 L, Hgb 10.7 L, Hct 33.7 L, MCV 86.2, MCH 27.4, MCHC 31.8 L, RDW Std Deviation 48.1 H, RDW Coeff of Dequan 15.4 H, Plt Count 496 H, MPV 9.1, Immature Gran % (Auto) 0.500, Neut % (Auto) 68.4, Lymph % (Auto) 19.9, [place] % (Auto) 9.0, Eos % (Auto) 1.6, Baso % (Auto) 0.6, Absolute Neuts (auto) 6.7, Absolute Lymphs (auto) 1.95, Nucleated RBC % 0, ESR 26, Sodium 138, Potassium 3.8, Chloride 106, Carbon Dioxide 28.0, Anion Gap 4 L, BUN 12, Creatinine 0.68, Estim Creat Clear Calc 60.10, Est GFR (MDRD) Af Amer 111, Est GFR (MDRD) Non-Af 92, BUN/Creatinine Ratio 17.6, Glucose 96, Calcium 9.5, C-React Prot Ext Range 77.00 H Radiography Diagnostic Testing: Radiology Impression Hand X-Ray 04/27/24 19:40 IMPRESSION: Diffuse soft tissue swelling. No acute fracture or radiopaque foreign body. Degenerative change. Electronically Signed: Zenon Lovelace DO at 20:05 EDT , Physical Exam Narrative GENERAL: cooperative HEENT: Atraumatic; normocephalic EYES; Anicteric, Normal Conjunctiva NECK; supple, normal thyroid, RESPIRATORY: Diminished to auscultation CARDIOVASCULAR: Regular S1 S2, GI: soft, normoactive bowel sounds, : No Renal angle tenderness; EXTREMITIES: No edema, no clubbing, MUSCULOSKELETAL: no muscle wasting NEURO: Awake; no lateralizing signs. SKIN: No Rash PSYCH; Flat affect Skin: Normal color, normal turgor, no icterus, no cyanosis except for notable right hand edema with significant erythema although somewhat able to flex and extend but more difficult along the right index finger with cat bite puncture wound along the MCP especially Assessment & Plan Assessment/Plan (1) Cellulitis of hand, right: (2) Cat bite: QUALIFIERS: Encounter type: initial encounter Qualified Code(s): W55.01XA - Bitten by cat, initial encounter PLAN: Plan Patient is a 68-year-old lady who presented with right hand swelling and erythema following cat bites and having failed antibiotic therapy as outpatient 1. Right hand cellulitis ? Having failed antibiotic therapy following a cat bite. Patient admitted to regular nursing floor started on broad-spectrum antibiotic therapy with Unasyn 2. Bilateral breast CA ? Status post bilateral mastectomy with plans for to initiate adjuvant radiation starting 05/03/2024 3. Anemia - Secondary to chronic disorder monitoring H&H and transfuse if patient becomes symptomatic or hemoglobin falls below 7 4. Hypertension - Blood pressure controlled, home medications continued with dose adjustment as needed 5. Dyslipidemia -Patient is on statin therapy, continued at home dose 6. GERD ? Patient is on PPI continue 7. Allergic rhinitis ? Patient is on montelukast as well as fexofenadine 8. Ulcerative colitis ? Treated with mesalamine 9. DVT prophylaxis - On enoxaparin Time spent in the patient's overall evaluation,decision-making process, review of diagnostic data, adjustment of management, discussion with other providers, nursing nursing and ancillary staff involved in patient's care documentation, 38 Minutes Charges/Coding Visit Charges Inpatient E&M: 28828 Subs Hosp L2
[2024-04-28 07:32] LABS: Absolute Lymphocyte Count 1.66 X10^3/uL (0.83-4.51); Basophil# 0.05 X10^3/uL; Basophil% 0.5 % (0-1); Eosinophil# 0.26 X10^3/uL; Eosinophils% 2.7 % (0-5); Hematocrit 31.9 % (37-47); Hemoglobin 10.2 g/dL (12.0-15.0); Lymphocyte # 1.66 X10^3/ul (0.83-4.51); Mean Corpuscular Volume 87.6 fL (81-99); Mean Platelet Vol. 9.5 fl (6.2-12.0); Monocyte# 0.81 X10^3/uL; Monocyte% 8.3 % (0-10); NRBC Flagged by Analyzer 0 % (0-5); Neutrophil # 6.96 X10^3/uL (2.7-7.7); Neutrophil % 71.1 % (47-70); Platelet Count 432 K/mm3 (150-450); RBC Distribution Width CV 15.3 % (11.6-14.6); RBC Distribution Width SD 49.2 fl (35.1-43.9); Red Blood Count 3.64 M/mm3 (4.2-5.4); White Blood Count 9.8 K/mm3 (4.4-11.0)
--- NOTE | 2024-04-28 07:32 | CONS.ORTHO ---
HPI Consult Data Date of Consult: 04/28/24 HPI Narrative HPI Narrative: MARY COLON, is a 68 F who presents With a cat bite to the right hand. This happened 2 days ago. Patient Tried some Epsom salt baths and soaking this in soapy water as well as saw the primary care doctor started on oral Augmentin however this got worse over the last day so the patient presented to the emergency department. They are admitted to the hospital and started on IV antibiotics. Since the last about 8 hours the redness and swelling has gotten a little bit better. Patient has been resting icing and elevating the hand. Patient owns a cat [facility] for getting cats and spraying and neutering them. This Was known to the patient since being a kitten for many years. The cat is not up-to-date on its vaccines but the patient does have some looking after the cat currently on monitoring the cat for rabies symptoms. [facility] Medical History Wears glasses Post-menopausal History of steroid therapy Anemia High cholesterol Back pain Ulcerative colitis Gastric reflux Non-smoker Malignant neoplasm of both breasts, estrogen receptor positive HTN (hypertension) Asthma Home Medications ?Medication ?Instructions ?Recorded ?Last Taken ?Type amlodipine 10 mg tablet 10 mg PO DAILY 01/02/23 02/05/24 20:35 History mesalamine 1.2 gram tablet,delayed 2.4 g PO BID 01/02/23 02/05/24 20:35 History release omeprazole 10 mg capsule,delayed 10 mg PO DAILY 01/02/23 02/06/24 06:00 History release rosuvastatin 10 mg tablet 10 mg PO DAILY 01/02/23 Unknown History albuterol sulfate 90 mcg/actuation 2 puff inhalation Q4H PRN 04/30/23 Unknown Rx aerosol inhaler (Ventolin HFA) shortness of breath or wheezing #18 grams fluticasone 500 mcg-salmeterol 50 1 inh inhalation BID #60 ea 09/10/23 02/06/24 06:00 Rx mcg/dose blistr powdr for inhalation (Advair Diskus) fexofenadine 180 mg tablet 180 mg PO DAILY 01/23/24 Unknown History (Aller-Fex) lisinopril 40 mg tablet 40 mg PO DAILY 01/23/24 02/06/24 06:00 History montelukast 10 mg tablet 10 mg PO DAILY #90 tabs 02/25/24 Unknown Rx Allergy/AdvReac Type Severity Reaction Status Date / Time Sulfa (Sulfonamide Allergy Mild Rash Verified 04/27/24 18:41 Antibiotics) Family History Mother Breast cancer Father COPD (chronic obstructive pulmonary disease) Aunt Breast cancer Diabetes Father Heart disease Surgical History H/O bilateral mastectomy H/O breast biopsy Previous back surgery Hx of appendectomy H/O tubal ligation Social History household members: spouse housing: house Smoking Status: Never smoker alcohol intake: current alcohol intake frequency: holidays/special occasions only substance use type: does not use Vital Signs Vital Signs Vital Signs: 04/27/24 18:39 04/27/24 19:40 04/27/24 19:50 Temperature 98.2 F 97.2 F L 97.2 F L Temperature Source Temporal Temporal Pulse Rate 82 73 85 Pulse Strength Respiratory Rate 16 18 18 Respiratory Effort Respiratory Depth Respiratory Pattern Blood Pressure 127/76 H 135/89 H 135/89 H Blood Pressure Mean 93 104 104 Blood Pressure Source Blood Pressure Position Blood Pressure Location Pulse Ox 99 98 98 Oxygen Delivery Method Room Air Room Air 04/27/24 20:00 04/27/24 20:38 04/27/24 21:42 Temperature 98.8 F Temperature Source Oral Pulse Rate 80 81 Pulse Strength Respiratory Rate 18 16 Respiratory Effort Normal Non-Labored Respiratory Depth Normal Respiratory Pattern Normal Blood Pressure 128/95 H 133/78 H Blood Pressure Mean 106 96 Blood Pressure Source Blood Pressure Position Blood Pressure Location Pulse Ox 98 98 Oxygen Delivery Method Room Air Room Air Room Air 04/27/24 22:00 04/27/24 22:00 04/27/24 22:00 Temperature 98.1 F 98.1 F Temperature Source Oral Oral Pulse Rate 78 78 Pulse Strength Normal (2+) Respiratory Rate 12 12 Respiratory Effort Respiratory Depth Respiratory Pattern Blood Pressure 138/72 H 138/72 H Blood Pressure Mean 94 94 Blood Pressure Source Monitor Blood Pressure Position Semi-Fowlers Blood Pressure Location Left Arm Pulse Ox 99 99 Oxygen Delivery Method Room Air Room Air 04/28/24 03:42 04/28/24 05:00 Temperature 98 F Temperature Source Oral Pulse Rate 83 Pulse Strength Respiratory Rate 14 Respiratory Effort Normal Non-Labored Respiratory Depth Normal Respiratory Pattern Normal Blood Pressure 131/74 H Blood Pressure Mean 93 Blood Pressure Source Monitor Blood Pressure Position Semi-Fowlers Blood Pressure Location Left Arm Pulse Ox 94 Oxygen Delivery Method Room Air Room Air Weight Weight: 148 lb 12.992 oz Body Mass Index (BMI) 28.0 Physical Exam Const alert, oriented x3 and no apparent distress General Appearance: cooperative and well developed Extremity Extremity Narrative: the right hand is swollen. There is minimal redness diffusely mild warmth.There is some minor puncture wounds on the dorsum of the hand more towards the radial side. Strong radial pulse normal sensation and motor function to the hand including the median radial ulnar nerves as well as AIN/PIN. Hand warm and well-perfused. There is a edd made from yesterday at 11 PM at the wrist but the redness and swelling seems to have retreated from then. Full wrist range of motion able to make a fist to about 50% no obvious pain to palpation at the flexor tendons. The hand is held in a normal position. There is moderate diffuse swelling of the hand. No pain to palpation about the wrist or elbow. Lab / Micro Data Attestation: I reviewed the patient's lab results. 04/27/24 19:34 04/27/24 19:34 Labs: Laboratory Results - last 24 hr 04/27/24 19:34: WBC 9.8, RBC 3.91 L, Hgb 10.7 L, Hct 33.7 L, MCV 86.2, MCH 27.4, MCHC 31.8 L, RDW Std Deviation 48.1 H, RDW Coeff of Dequan 15.4 H, Plt Count 496 H, MPV 9.1, Immature Gran % (Auto) 0.500, Neut % (Auto) 68.4, Lymph % (Auto) 19.9, [place] % (Auto) 9.0, Eos % (Auto) 1.6, Baso % (Auto) 0.6, Absolute Neuts (auto) 6.7, Absolute Lymphs (auto) 1.95, Nucleated RBC % 0, ESR 26, Sodium 138, Potassium 3.8, Chloride 106, Carbon Dioxide 28.0, Anion Gap 4 L, BUN 12, Creatinine 0.68, Estim Creat Clear Calc 60.10, Est GFR (MDRD) Af Amer 111, Est GFR (MDRD) Non-Af 92, BUN/Creatinine Ratio 17.6, Glucose 96, Calcium 9.5, C-React Prot Ext Range 77.00 H Imaging Radiology Impression Hand X-Ray 04/27/24 19:40 IMPRESSION: Diffuse soft tissue swelling. No acute fracture or radiopaque foreign body. Degenerative change. Electronically Signed: Zenon Lovelace DO at 20:05 EDT , I agree diffuse soft tissue swelling no fractures identified Assessment & Plan Assessment/Plan (1) Cat bite: PLAN: 68-year-old female with a right hand cat bite. This appears to be cellulitis from the cat bite. No signs of an acute pyogenic flexor tenosynovitis or fracture or abscess. No role for acute surgical intervention. Do agree with the IV antibiotics monitoring the patient's clinical course and blood work. I do suggest the hospitalist to consult as well or to consider consulting with infectious disease although there is nothing to culture at this point therefore recommended for broad-spectrum antibiotics to cover typical bacteria from a cat bite. Will follow the patient along clinically and for now the patient can be diet as tolerated. Recommend rest ice elevation gentle ROM. (2) Cellulitis of hand, right:
[2024-04-28 07:40] VITALS: O2SAT 95
[2024-04-28 08:03] LABS: AST(SGOT) 14 U/L (15-37); Alanine Aminotransfer ALT/SGPT 18 U/L (13-56); Albumin, Serum 3.3 g/dL (3.2-5.0); Alkaline Phosphatase 85 U/L (45-117); Anion Gap 5 (5-15); BUN 10 mg/dL (7-18); Calcium,Total 8.8 mg/dL (8.5-10.1); Chloride 110 mmol/L (98-107); Creatinine, Serum 0.62 mg/dL (0.55-1.02); EST Glomerular Filtration Rate 101 mL/min (>60); Est Glom Filt Rate - Afr Amer 122 mL/min (>60); Estimated Creatinine Clearance 59.98 ml/min; Globulin 3.2 g/dL (2.2-4.2); Glucose 106 mg/dL (74-106); Potassium 3.7 mmol/L (3.5-5.1); Protein, Total 6.5 g/dL (6.4-8.2); Sodium Level 139 mmol/L (136-145)
[2024-04-28] MEDS: oxyCODONE 5 MG Tablet PO (09:14)
[2024-04-28] MEDS: Pantoprazole Sodium 20 MG Tablet PO (09:15)
[2024-04-28] MEDS: amLODIPine 10 MG Tablet PO (09:15)
[2024-04-28] MEDS: Enoxaparin 40 MG/0.4 ML Syringe SC (09:15)
[2024-04-28] MEDS: Lisinopril 40 MG Tablet PO (09:15)
[2024-04-28] MEDS: Mesalamine 1.2 GM Tablet 2.4 GM PO ×2 (09:15→21:18)
[2024-04-28] MEDS: Loratadine 10 MG Tablet PO (09:15)
[2024-04-28] MEDS: Montelukast 10 MG Tablet PO (09:16)
[2024-04-28 10:03] VITALS: BP 125/72; PULSE 88; RESP 16; TEMP 36.8; O2SAT 97
--- NOTE | 2024-04-28 11:33 | CASEMGMT ---
Social Work- Pt confirms she has completed a living will and health care POA naming Raven, sister.? Pt notified that documents are not on file at [facility] and SW requested they be brought in for scanning into the EMR.? SAMMI Oliva
--- NOTE | 2024-04-28 12:05 | CASEMGMT ---
THALIA MATTHEWS Assessment Face to Face with patient for initial transition planning/care coordination assessment. RN CM introduced self and role at [facility], pt voices understanding. Pt is A&Ox4 and is resting comfortably in bed and is calm. Pt sister at bedside. Care providers, pharmacy, and demographics verified. Admitting dx: Rt Hand Cellulitis/ Cat Bite LACE Strata: 3 PCP: Kannan Rizvi Specialists: Ibeth (Oncology), Madelyn (Oncology), Milad (Gen Surgeon), Jess (GI), Eve Hanks (Pulm) Preferred Pharmacy: [facility] Insurance: [employer] [facility] Prescription Benefit: Yes LNOK: Charli Chavez (H), Raven Huber (Sister) Living Arrangements: Pt lives with her in a single story home with one step to enter ADLs/IADLs: Ind Transportation: Self, . Pt denies concerns DME: IS, BP Monitor, Pulse Ox. Pt denies further needs HHC/SNF: denies history or needs Pt?s goal: Home Plan: Home no needs vs Home with IV ATB. 6-Click is 24. Per the Orthopedic MD, ID may not need to be consulted as there is nothing to culture at this time. Pt denies further needs at home. CM to follow in the case that the pt does qualify for home IV ATB infusions. Edward Cardona RN, CM
[2024-04-28 14:59] VITALS: BP 121/78; PULSE 91; RESP 16; TEMP 36.7; O2SAT 97
[2024-04-28] MEDS: Acetaminophen 325 MG Tablet 650 MG PO ×2 (17:23→21:26)
[2024-04-28] MEDS: Ondansetron 4 MG/2 ML Vial IV (17:23)
[2024-04-28] MEDS: Ibuprofen 600 MG Tablet PO (17:35)
[2024-04-28] MEDS: Budesonide Respules 0.5 MG/2 ML AMPUL.NEB. INHALATION (19:41)
[2024-04-28 19:43] VITALS: PULSE 91; RESP 16
[2024-04-28] MEDS: Atorvastatin Calcium 20 MG Tablet PO (21:18)
[2024-04-28 21:34] VITALS: BP 117/69; PULSE 94; RESP 16; TEMP 36.4; O2SAT 97
[2024-04-29] MEDS: Ampicillin/Sulbactam 3 GM in 0.9% Normal Saline (100mL MB+) 100 ML IV ×5 (00:22→23:17)
[2024-04-29 03:01] VITALS: BMI 28.0
[2024-04-29] MEDS: Ibuprofen 600 MG Tablet PO ×3 (05:34→23:17)
[2024-04-29] MEDS: Acetaminophen 325 MG Tablet 650 MG PO ×4 (05:34→21:07)
[2024-04-29 05:42] VITALS: BP 136/72; PULSE 77; RESP 16; TEMP 36.1; O2SAT 95
[2024-04-29 07:39] VITALS: PULSE 82; RESP 18; O2SAT 93
[2024-04-29] MEDS: Budesonide Respules 0.5 MG/2 ML AMPUL.NEB. INHALATION ×2 (07:39→20:40)
[2024-04-29 07:54] LABS: Absolute Lymphocyte Count 2.13 X10^3/uL (0.83-4.51); Absolute Neutrophil Count 7.1 X10^3/uL (2.0-7.7); Basophil# 0.05 X10^3/uL; Basophil% 0.5 % (0-1); Eosinophil# 0.23 X10^3/uL; Eosinophils% 2.3 % (0-5); Hematocrit 34.7 % (37-47); Lymphocyte # 2.13 X10^3/ul (0.83-4.51); Lymphocyte % 21.1 % (19-41); Mean Corp Hgb Conc 31.7 g/dL (32-36); Mean Corpuscular Hgb 27.5 pg (27.0-32.0); Mean Corpuscular Volume 86.8 fL (81-99); Mean Platelet Vol. 9.5 fl (6.2-12.0); Monocyte# 0.59 X10^3/uL; Monocyte% 5.8 % (0-10); NRBC Flagged by Analyzer 0 % (0-5); Neutrophil # 7.07 X10^3/uL (2.7-7.7); Neutrophil % 69.9 % (47-70); Platelet Count 473 K/mm3 (150-450); RBC Distribution Width CV 15.2 % (11.6-14.6); RBC Distribution Width SD 48.3 fl (35.1-43.9); White Blood Count 10.1 K/mm3 (4.4-11.0)
[2024-04-29 08:20] LABS: Anion Gap 7 (5-15); BUN 7 mg/dL (7-18); BUN/Creat Ratio 11.5 RATIO (10-20); Calcium,Total 9.5 mg/dL (8.5-10.1); Chloride 107 mmol/L (98-107); Creatinine, Serum 0.61 mg/dL (0.55-1.02); EST Glomerular Filtration Rate 104 mL/min (>60); Est Glom Filt Rate - Afr Amer 125 mL/min (>60); Estimated Creatinine Clearance 59.98 ml/min; Glucose 113 mg/dL (74-106); Magnesium 2.1 mg/dL (1.6-2.6); Phosphorus 2.6 mg/dL (2.5-4.9); Potassium 3.6 mmol/L (3.5-5.1); Sodium Level 137 mmol/L (136-145)
[2024-04-29 10:28] VITALS: BP 131/79; PULSE 87; RESP 16; TEMP 36.6; O2SAT 99
[2024-04-29] MEDS: Pantoprazole Sodium 20 MG Tablet PO (10:35)
[2024-04-29] MEDS: Montelukast 10 MG Tablet PO (10:35)
[2024-04-29] MEDS: Mesalamine 1.2 GM Tablet 2.4 GM PO ×2 (10:35→21:07)
[2024-04-29] MEDS: amLODIPine 10 MG Tablet PO (10:35)
[2024-04-29] MEDS: Loratadine 10 MG Tablet PO (10:36)
[2024-04-29] MEDS: Lisinopril 40 MG Tablet PO (10:36)
--- NOTE | 2024-04-29 11:11 | PN.ORTHO_ITS ---
Subjective Subjective has some scant drainage now, hand feels a bit better, less red, able to flex the fingers a bit better but still stiff Objective Data Objective Data Vital Signs: Vital Signs Temp Pulse Resp BP Pulse Ox O2 Del Method 97.9 F 87 16 131/79 H 99 Room Air 04/29/24 10:28 04/29/24 10:28 04/29/24 10:28 04/29/24 10:28 04/29/24 10:28 04/29/24 10:28 Oxygen Delivery Method Room Air Weight: 148 lb 12.992 oz Body Mass Index (BMI) 28.0 Intake & Output: Intake and Output for Last 24 Hours 04/27/24 04/28/24 04/29/24 23:59 23:59 23:59 Intake Total 362 / 362 3048 / 3048 224 / 224 Balance 362 / 362 3048 / 3048 224 / 224 Lab / Micro Data Attestation: I reviewed the patient's lab results. 04/29/24 06:56 04/29/24 06:56 Labs: Laboratory Results - last 24 hr 04/29/24 06:56: WBC 10.1, RBC 4.00 L, Hgb 11.0 L, Hct 34.7 L, MCV 86.8, MCH 27.5, MCHC 31.7 L, RDW Std Deviation 48.3 H, RDW Coeff of Dequan 15.2 H, Plt Count 473 H, MPV 9.5, Immature Gran % (Auto) 0.400, Neut % (Auto) 69.9, Lymph % (Auto) 21.1, [place] % (Auto) 5.8, Eos % (Auto) 2.3, Baso % (Auto) 0.5, Absolute Neuts (auto) 7.1, Absolute Lymphs (auto) 2.13, Nucleated RBC % 0, Sodium 137, Potassium 3.6, Chloride 107, Carbon Dioxide 23.0, Anion Gap 7, BUN 7, Creatinine 0.61, Estim Creat Clear Calc 59.98, Est GFR (MDRD) Af Amer 125, Est GFR (MDRD) Non-Af 104, BUN/Creatinine Ratio 11.5, Glucose 113 H, Calcium 9.5, Phosphorus 2.6, Magnesium 2.1 Physical Exam Const alert, oriented x3 and no apparent distress Extremity Extremity Narrative: less redness and warmth, still swollen, the dorsal puncture between 4 and 5th MC heads drainage very scant purulence. Assessment & Plan Assessment/Plan (1) Cellulitis of hand, right: PLAN: 68 F with right hand infection after cat bite . on broad spec abx. would still recommend IV therapy as patient has some scant drainage that I was able to express. would not recommend dc today to ensure good resolution prior to stepping down therapy, especially considering patient may be under going upcoming breast radiation. will follow. no abscess to drain at the moment, but will follow closely .
[2024-04-29] MEDS: 0.9% Saline Lock 10 ML Syringe IV ×2 (11:29→23:17)
[2024-04-29] MEDS: 0.9% Normal Saline (250mL Bag) 250 ML 15 ML IV (12:17)
[2024-04-29 15:33] VITALS: BP 126/71; PULSE 87; RESP 16; TEMP 36.6; O2SAT 96
--- NOTE | 2024-04-29 17:09 | PCM.PN.HOSP ---
Reason for Visit Reason for Visit: Diagnoses Cellulitis of right upper limb (04/27/24) Bitten by cat, initial encounter (04/27/24) Subjective Subjective Patient was seen and examined today, she still exhibits swelling in her right hand. According to documentation from orthopedic surgery, they would prefer the patient to continue on IV antibiotics for now. Objective Data Objective Data Vital Signs: Vital Signs Temp Pulse Resp BP Pulse Ox O2 Del Method 98 F 87 16 126/71 H 96 Room Air 04/29/24 15:33 04/29/24 15:33 04/29/24 15:33 04/29/24 15:33 04/29/24 15:33 04/29/24 15:33 Oxygen Delivery Method Room Air Weight: 67.5 kg Body Mass Index (BMI) 28.0 Intake & Output: Intake and Output for Last 24 Hours 04/27/24 04/28/24 04/29/24 23:59 23:59 23:59 Intake Total 362 / 362 3048 / 3048 936 / 936 Balance 362 / 362 3048 / 3048 936 / 936 Lab / Micro Data 04/29/24 06:56 04/29/24 06:56 Labs: Laboratory Results - last 24 hr 04/29/24 06:56: WBC 10.1, RBC 4.00 L, Hgb 11.0 L, Hct 34.7 L, MCV 86.8, MCH 27.5, MCHC 31.7 L, RDW Std Deviation 48.3 H, RDW Coeff of Dequan 15.2 H, Plt Count 473 H, MPV 9.5, Immature Gran % (Auto) 0.400, Neut % (Auto) 69.9, Lymph % (Auto) 21.1, [place] % (Auto) 5.8, Eos % (Auto) 2.3, Baso % (Auto) 0.5, Absolute Neuts (auto) 7.1, Absolute Lymphs (auto) 2.13, Nucleated RBC % 0, Sodium 137, Potassium 3.6, Chloride 107, Carbon Dioxide 23.0, Anion Gap 7, BUN 7, Creatinine 0.61, Estim Creat Clear Calc 59.98, Est GFR (MDRD) Af Amer 125, Est GFR (MDRD) Non-Af 104, BUN/Creatinine Ratio 11.5, Glucose 113 H, Calcium 9.5, Phosphorus 2.6, Magnesium 2.1 Physical Exam Const alert, oriented x3, no apparent distress, average body habitus and healthy appearing General Appearance: cooperative, well kempt and well developed Orientation / Consciousness: awake, oriented to person, oriented to place and oriented to time HEENT normocephalic, head/scalp atraumatic and moist oral mucous membranes Eyes PERRL, EOMs intact bilaterally and conjunctivae normal Neck supple, no JVD, thyroid normal and no carotid bruits General: trachea midline Resp normal respiratory effort and clear to auscultation bilaterally Auscultation: Negative for rales, rhonchi or wheezes Cardio regular rate, regular rhythm, S1 normal heart sound, S2 normal heart sound, no murmurs, no rub and no gallops GI normal to inspection, nondistended, normoactive bowel sounds, soft to palpation, non-tender and non-distended Extremity Extremity Narrative: There is generalized swelling of the patient's right hand, she is able to make a partial fist with the hand, there is no discharge from the right hand Neuro oriented x3, CN's II-XII intact bilaterally, no focal motor deficits and no sensory deficits noted Sensorium / Orientation: awake and alert Speech: speech normal Psych affect normal Assessment & Plan Assessment/Plan (1) Cellulitis of hand, right: PLAN: Plan 1. Cellulitis of the right hand secondary to cat bite-patient remains on Unasyn at this time, she is being followed by orthopedic surgery. #2 essential hypertension-patient will remain on her present medications #3 recently diagnosed breast cancer-complicates care, management, recovery, and prognosis Total clinical time spent by myself addressing patient's medical issues, reviewing all of her data, and collaborating with patient's care team: 55 minutes Charges/Coding Visit Charges Inpatient E&M: 23032 Subs Hosp L2
[2024-04-29 20:40] VITALS: PULSE 77; RESP 14
[2024-04-29] MEDS: Atorvastatin Calcium 20 MG Tablet PO (21:07)
[2024-04-29 21:13] VITALS: BP 124/72; PULSE 80; RESP 16; TEMP 37.1; O2SAT 96
[2024-04-30] MEDS: Acetaminophen 325 MG Tablet 650 MG PO (04:37)
[2024-04-30] MEDS: Ampicillin/Sulbactam 3 GM in 0.9% Normal Saline (100mL MB+) 100 ML IV ×2 (04:37→11:37)
[2024-04-30 04:40] VITALS: BP 133/76; PULSE 77; RESP 16; TEMP 36.5; O2SAT 97
[2024-04-30 05:45] VITALS: BMI 28.1
[2024-04-30 06:10] LABS: Absolute Lymphocyte Count 1.99 X10^3/uL (0.83-4.51); Absolute Neutrophil Count 4.6 X10^3/uL (2.0-7.7); Basophil# 0.05 X10^3/uL; Basophil% 0.7 % (0-1); Eosinophil# 0.27 X10^3/uL; Eosinophils% 3.6 % (0-5); Hematocrit 31.5 % (37-47); Hemoglobin 10.2 g/dL (12.0-15.0); Lymphocyte # 1.99 X10^3/ul (0.83-4.51); Lymphocyte % 26.3 % (19-41); Mean Corp Hgb Conc 32.4 g/dL (32-36); Mean Corpuscular Hgb 28.3 pg (27.0-32.0); Mean Corpuscular Volume 87.5 fL (81-99); Mean Platelet Vol. 9.5 fl (6.2-12.0); Monocyte% 7.9 % (0-10); NRBC Flagged by Analyzer 0 % (0-5); Neutrophil # 4.64 X10^3/uL (2.7-7.7); Neutrophil % 61.2 % (47-70); Platelet Count 420 K/mm3 (150-450); RBC Distribution Width CV 15.1 % (11.6-14.6); RBC Distribution Width SD 48.4 fl (35.1-43.9); White Blood Count 7.6 K/mm3 (4.4-11.0)
[2024-04-30 07:03] LABS: Anion Gap 6 (5-15); BUN 9 mg/dL (7-18); BUN/Creat Ratio 18.6 RATIO (10-20); Calcium,Total 8.9 mg/dL (8.5-10.1); Chloride 109 mmol/L (98-107); Creatinine, Serum 0.48 mg/dL (0.55-1.02); EST Glomerular Filtration Rate 135 mL/min (>60); Est Glom Filt Rate - Afr Amer 164 mL/min (>60); Estimated Creatinine Clearance 60.02 ml/min; Glucose 109 mg/dL (74-106); Potassium 3.6 mmol/L (3.5-5.1); Sodium Level 139 mmol/L (136-145)
[2024-04-30] MEDS: Ibuprofen 600 MG Tablet PO (07:37)
[2024-04-30] MEDS: Lisinopril 40 MG Tablet PO (07:48)
[2024-04-30] MEDS: amLODIPine 10 MG Tablet PO (07:48)
[2024-04-30] MEDS: Montelukast 10 MG Tablet PO (07:48)
[2024-04-30] MEDS: Loratadine 10 MG Tablet PO (07:49)
[2024-04-30] MEDS: Mesalamine 1.2 GM Tablet 2.4 GM PO (07:49)
[2024-04-30] MEDS: Pantoprazole Sodium 20 MG Tablet PO (07:49)
[2024-04-30 07:50] VITALS: O2SAT 98
[2024-04-30 10:00] VITALS: BP 137/74; PULSE 80; RESP 18; TEMP 36.8; O2SAT 98
--- NOTE | 2024-04-30 13:26 | DCINST_ITS ---
Discharge Instructions Diet Discharge Diet: No restrictions Activity Discharge Activity: Return to Normal Activity Weight Bearing Status: Full weight bearing Follow Up Care Test Results: Test results from this visit will be discussed in further detail at your follow- up appointment, if applicable. Discharge Plan Admission Admit Date/Time: 04/27/24 21:02 Primary Reason for Your Visit: Cellulitis of the right hand Attending Provider: Eliezer Slater Primary Care Provider: Kannan Rizvi Consulting Providers: Víctor German; Pilar Renae; Crescencio Manriquez Discharge Orders/Prescriptions Prescriptions: New amoxicillin-pot clavulanate 875-125 mg tablet 1 tab PO BID Qty: 5 0RF Rx Instructions: Please add these to your home Augmentin supply to complete 7 days of antibiotic coverage, start your first dose tonight Continued rosuvastatin 10 mg tablet 10 mg PO DAILY omeprazole 10 mg capsule,delayed release(DR/EC) 10 mg PO DAILY amlodipine 10 mg tablet 10 mg PO DAILY mesalamine 1.2 gram tablet,delayed release (DR/EC) 2.4 g PO BID montelukast 10 mg tablet 10 mg PO DAILY Qty: 90 3RF lisinopril 40 mg tablet 40 mg PO DAILY fexofenadine [Aller-Fex] 180 mg tablet 180 mg PO DAILY albuterol sulfate [Ventolin HFA] 90 mcg/actuation HFA aerosol inhaler 2 puff inhalation Q4H PRN (Reason: shortness of breath or wheezing) Qty: 18 6RF fluticasone propion-salmeterol [Advair Diskus] 500-50 mcg/dose blister with device 1 inh inhalation BID Qty: 60 6RF Referrals / Follow Up: Kannan Rizvi MD [Primary Care Provider] - Víctor German MD [Med Staff - Active Staff] - In 1 Week Disposition Disposition (needs filled in before D/C Order can be placed): Home, Self Care
--- NOTE | 2024-04-30 13:39 | DS.PCM_ITS ---
Providers Date of Admission: 04/27/24 Date of Discharge: 04/30/24 Primary Care Physician: Dr. Kannan Rizvi MD Consultations 04/27/24 22:26 Consult: Orthopedics Routine Consulting Provider: Víctor German Reason for Consult: R hand infected cat bite, worsening, failed outpt abx EMERGENT Consult: No MD Notified: Yes Date Notified: 04/27/24 Time Notified: 21:03 Method of Notification: ED Physician Initiated Reason For Visit: R HAND CELLULITIS/CAT BITE Diagnosis Discharge Diagnosis (1) Cellulitis of hand, right: Status: Acute Code(s): L03.113 - Cellulitis of right upper limb Plan 1. Cellulitis of the right hand secondary to cat bite-patient remains on Unasyn at this time, she is being followed by orthopedic surgery. #2 essential hypertension-patient will remain on her present medications #3 recently diagnosed breast cancer-complicates care, management, recovery, and prognosis Total clinical time spent by myself addressing patient's medical issues, reviewing all of her data, and collaborating with patient's care team: 55 minutes Medications at Discharge Home Medications amlodipine 10 mg tablet 10 mg PO DAILY 01/02/23 mesalamine 1.2 gram tablet,delayed release 2.4 g PO BID 01/02/23 omeprazole 10 mg capsule,delayed release 10 mg PO DAILY 01/02/23 rosuvastatin 10 mg tablet 10 mg PO DAILY 01/02/23 albuterol sulfate 90 mcg/actuation aerosol inhaler (Ventolin HFA) 2 puff inhalation Q4H PRN shortness of breath or wheezing #18 grams 04/30/23 fluticasone 500 mcg-salmeterol 50 mcg/dose blistr powdr for inhalation (Advair Diskus) 1 inh inhalation BID #60 ea 09/10/23 fexofenadine 180 mg tablet (Aller-Fex) 180 mg PO DAILY 01/23/24 lisinopril 40 mg tablet 40 mg PO DAILY 01/23/24 montelukast 10 mg tablet 10 mg PO DAILY #90 tabs 02/25/24 amoxicillin 875 mg-potassium clavulanate 125 mg tablet 1 tab PO BID #5 tabs 04/30/24 Hospital Course Operations None Procedures None Summary of Care Provided Minutes Spent on Discharge: 31 Hospital Course: This 68-year-old white female was seen in the emergency room at [facility] with complaints of swelling in her right hand after she was bitten by one of her cats the day before. She had Augmentin prescribed to her as an outpatient but had only taken 4 doses. Workup in the emergency room included a CBC which was remarkable for a hemoglobin of 10.7, chemistry profile was unremarkable, x-ray of the hand showed diffuse soft tissue swelling and degenerative changes. Patient was admitted to [place] [address] and placed on IV antibiotics, she was seen in consultation by orthopedic surgery who did not feel the patient needed surgical intervention. Patient improved during her hospital stay. On 04/30/2024, patient was seen and examined: On examination she appeared in good health and spirits, she does not appear to be in any distress. Vital signs as documented. Skin warm and dry and without overt rashes. Neck without JVD, thyroid appears normal, trachea is midline, neck is supple. Lungs clear, normal air movement was noted. Heart exam notable for regular rhythm, normal sounds and absence of murmurs, rubs or gallops. Abdomen unremarkable and without evidence of organomegaly, masses, or abdominal aortic enlargement, bowel sounds are present in all 4 quadrants, no abdominal tenderness was noted. Extremities there is generalized swelling of the right hand noted, patient was able to make a fist however, no evidence of discharge was noted from the right hand, no clubbing was noted. Neuro: Cranial nerves II through XII are grossly intact, no focal motor deficits were noted, sensation to light touch and pinprick is intact, motor exam 5/5 throughout. Psych: Patient is alert and oriented x3, she does not appear anxious or depressed, she does not appear agitated. On 04/30/2024, patient was discharged home in stable condition Weight / BMI Weight Weight: 67.6 kg Body Mass Index (BMI) 28.1 ABG / Lab / Microbiology Data 04/30/24 05:26 04/30/24 05:26 Laboratory: Laboratory Results - last 24 hr 04/30/24 05:26: WBC 7.6, RBC 3.60 L, Hgb 10.2 L, Hct 31.5 L, MCV 87.5, MCH 28.3, MCHC 32.4, RDW Std Deviation 48.4 H, RDW Coeff of Dequan 15.1 H, Plt Count 420, MPV 9.5, Immature Gran % (Auto) 0.300, Neut % (Auto) 61.2, Lymph % (Auto) 26.3, [place] % (Auto) 7.9, Eos % (Auto) 3.6, Baso % (Auto) 0.7, Absolute Neuts (auto) 4.6, Absolute Lymphs (auto) 1.99, Nucleated RBC % 0, Sodium 139, Potassium 3.6, C hloride 109 H, Carbon Dioxide 24.0, Anion Gap 6, BUN 9, Creatinine 0.48 L, Estim Creat Clear Calc 60.02, Est GFR (MDRD) Af Amer 164, Est GFR (MDRD) Non-Af 135, BUN/Creatinine Ratio 18.6, Glucose 109 H, Calcium 8.9 D/C Instructions Discharge Diet: No restrictions Weight Bearing Status: Full weight bearing Meaningful Use Info Meaningful Use Meaningful Use Diagnoses (Choose all that apply): None applicable Ischemic Stroke Statin Dosing Therapy Reference: STATIN DOSE THERAPY REFERENCE: * Patients > 75 years receive moderate or high dose statin therapy. * Patients 75 years or YOUNGER should receive HIGH intensity statin dose unless contraindicated. You will be required to document reason for non-treatment if statin daily dose does not meet guidelines. HIGH DOSE STATIN THERAPY DAILY Atorvastatin > than or = to 40 mg Rosuvastatin > than or = to 20 mg Amlodipine + Atorvastatin > than or = to 2.5/40 mg Ezetimibe + Simvastatin 10/80 mg Simvastatin 80mg Discharge Plan Admission Admit Date/Time: 04/27/24 21:02 Primary Reason for Your Visit: Cellulitis of the right hand Attending Provider: Eliezer Slater Primary Care Provider: Kannan Rizvi Consulting Providers: Víctor German; Pilar Renae; Crescencio Manriquez Discharge Orders/Prescriptions Prescriptions: New amoxicillin-pot clavulanate 875-125 mg tablet 1 tab PO BID Qty: 5 0RF Rx Instructions: Please add these to your home Augmentin supply to complete 7 days of antibiotic coverage, start your first dose tonight Continued rosuvastatin 10 mg tablet 10 mg PO DAILY omeprazole 10 mg capsule,delayed release(DR/EC) 10 mg PO DAILY amlodipine 10 mg tablet 10 mg PO DAILY mesalamine 1.2 gram tablet,delayed release (DR/EC) 2.4 g PO BID montelukast 10 mg tablet 10 mg PO DAILY Qty: 90 3RF lisinopril 40 mg tablet 40 mg PO DAILY fexofenadine [Aller-Fex] 180 mg tablet 180 mg PO DAILY albuterol sulfate [Ventolin HFA] 90 mcg/actuation HFA aerosol inhaler 2 puff inhalation Q4H PRN (Reason: shortness of breath or wheezing) Qty: 18 6RF fluticasone propion-salmeterol [Advair Diskus] 500-50 mcg/dose blister with device 1 inh inhalation BID Qty: 60 6RF Referrals / Follow Up: Kannan Rizvi MD [Primary Care Provider] - Víctor German MD [Med Staff - Active Staff] - In 1 Week Disposition Disposition (needs filled in before D/C Order can be placed): Home, Self Care Charges/Coding Visit Charges Inpatient E&M: 92928 Disch Hosp >30min
--- NOTE | 2024-04-30 13:44 | CASEMGMT ---
Order for pt DC placed. Pt will be going home on PO ATBs. RN CM to pt room at this time. Pt states that she still feels safe and comfortable discharging home today with no additional needs. Pt family will help provide the pt with transportation home today. Pt denies further questions or concerns and states that she is ready for DC home today.
--- NOTE | 2024-04-30 13:54 | PN.ORTHO_ITS ---
Subjective Subjective doing well. no concerns Objective Data Objective Data Vital Signs: Vital Signs Temp Pulse Resp BP Pulse Ox O2 Del Method 98.2 F 80 18 137/74 H 98 Room Air 04/30/24 10:00 04/30/24 10:00 04/30/24 10:00 04/30/24 10:00 04/30/24 10:00 04/30/24 10:00 Oxygen Delivery Method Room Air Weight: 149 lb 0.52 oz Body Mass Index (BMI) 28.1 Intake & Output: Intake and Output for Last 24 Hours 04/28/24 04/29/24 04/30/24 23:59 23:59 23:59 Intake Total 3048 / 3048 1766 / 1766 404.75 / 404.75 Balance 3048 / 3048 1766 / 1766 404.75 / 404.75 Lab / Micro Data Attestation: I reviewed the patient's lab results. 04/30/24 05:26 04/30/24 05:26 Labs: Laboratory Results - last 24 hr 04/30/24 05:26: WBC 7.6, RBC 3.60 L, Hgb 10.2 L, Hct 31.5 L, MCV 87.5, MCH 28.3, MCHC 32.4, RDW Std Deviation 48.4 H, RDW Coeff of Dequan 15.1 H, Plt Count 420, MPV 9.5, Immature Gran % (Auto) 0.300, Neut % (Auto) 61.2, Lymph % (Auto) 26.3, [place] % (Auto) 7.9, Eos % (Auto) 3.6, Baso % (Auto) 0.7, Absolute Neuts (auto) 4.6, Absolute Lymphs (auto) 1.99, Nucleated RBC % 0, Sodium 139, Potassium 3.6, C hloride 109 H, Carbon Dioxide 24.0, Anion Gap 6, BUN 9, Creatinine 0.48 L, Estim Creat Clear Calc 60.02, Est GFR (MDRD) Af Amer 164, Est GFR (MDRD) Non-Af 135, BUN/Creatinine Ratio 18.6, Glucose 109 H, Calcium 8.9 Physical Exam Const alert and oriented x3 Extremity Extremity Narrative: hand swelling better. no drainage. punctures closed. nearly able to make a fist but index still stiff. the puncture actually between index and middle (not 4/5 as stated last note). less redness, no warmth. hand warm well pefused. Assessment & Plan Assessment/Plan (1) Cat bite: QUALIFIERS: Encounter type: initial encounter Qualified Code(s): W55.01XA - Bitten by cat, initial encounter PLAN: 68 F PAD 2 right hand infected cat bite. Seems reasonable at this point to step down to oral antibiotics and FU as outpatient next week to ensure good resolution. OK to dc per my perspective. D/w Dr Watkins at 157pm. (2) Cellulitis of hand, right:
--- NOTE | 2024-04-30 13:54 | PHA.DC.MR.R ---
Pharmacy [place] Med Reconciliation Pharmacy Service has performed discharge medication reconciliation for this patient. The patient's discharge medication list was reviewed for discrepancies and discrepancies were resolved. Medications at Discharge Home Medications amlodipine 10 mg tablet 10 mg PO DAILY 01/02/23 mesalamine 1.2 gram tablet,delayed release 2.4 g PO BID 01/02/23 omeprazole 10 mg capsule,delayed release 10 mg PO DAILY 01/02/23 rosuvastatin 10 mg tablet 10 mg PO DAILY 01/02/23 albuterol sulfate 90 mcg/actuation aerosol inhaler (Ventolin HFA) 2 puff inhalation Q4H PRN shortness of breath or wheezing #18 grams 04/30/23 fluticasone 500 mcg-salmeterol 50 mcg/dose blistr powdr for inhalation (Advair Diskus) 1 inh inhalation BID #60 ea 09/10/23 fexofenadine 180 mg tablet (Aller-Fex) 180 mg PO DAILY 01/23/24 lisinopril 40 mg tablet 40 mg PO DAILY 01/23/24 montelukast 10 mg tablet 10 mg PO DAILY #90 tabs 02/25/24 amoxicillin 875 mg-potassium clavulanate 125 mg tablet 1 tab PO BID #5 tabs 04/30/24
[2024-04-30 14:50] VITALS: BP 119/74; PULSE 88; RESP 18; TEMP 36.6; O2SAT 98
== END 2024-04-30 15:15 | disposition home or self-care (01) | DRG 603 ==
LOC: ED 21:07 → MS3 21:25
PROVIDERS: Internal Medicine; Admitting Provider Family Medicine; Emergency Provider Emergency Medicine; PCP Family Medicine; Visit Provider Internal Medicine
DX: L03.113 Cellulitis of right upper limb (principal); K51.90 Ulcerative colitis, unspecified, without complications; C50.911 Malignant neoplasm of unspecified site of right female breast; C50.912 Malignant neoplasm of unspecified site of left female breast; D64.9 Anemia, unspecified; E78.5 Hyperlipidemia, unspecified; I10 Essential (primary) hypertension; J45.909 Unspecified asthma, uncomplicated; K21.9 Gastro-esophageal reflux disease without esophagitis; Z90.13 Acquired absence of bilateral breasts and nipples; Z80.3 Family history of malignant neoplasm of breast; Z79.51 Long term (current) use of inhaled steroids; W55.01XA Bitten by cat, initial encounter
CPT/HCPCS: 36415; 73130; 80048; 80053; 83735; 84100; 85025; 85652; 86140; 94640; 94668; 97802; 99252; 99284; J7030; J7050; A4216; G0463; J0295; J2405

== ENCOUNTER → 2024-06-09 | Outpatient (CLI) | payer MEDICARE, SELFPAY ==
[2024-06-09 10:09] LABS: Mucous, Urine 0 SEEN /hpf (<or=2+); Red Blood Cells-Urine 0 SEEN /hpf (0-5)
[2024-06-09 12:25] LABS: Absolute Lymphocyte Count 0.74 X10^3/uL (0.83-4.51); Basophil# 0.06 X10^3/uL; Basophil% 0.7 % (0-1); Eosinophil# 0.15 X10^3/uL; Eosinophils% 1.8 % (0-5); Hematocrit 36.8 % (37-47); Hemoglobin 11.5 g/dL (12.0-15.0); Lymphocyte # 0.74 X10^3/ul (0.83-4.51); Lymphocyte % 8.9 % (19-41); Mean Corp Hgb Conc 31.3 g/dL (32-36); Mean Corpuscular Hgb 27.8 pg (27.0-32.0); Mean Corpuscular Volume 88.9 fL (81-99); Mean Platelet Vol. 9.8 fl (6.2-12.0); Monocyte# 0.41 X10^3/uL; Monocyte% 4.9 % (0-10); NRBC Flagged by Analyzer 0 % (0-5); Neutrophil # 6.96 X10^3/uL (2.7-7.7); Neutrophil % 83.3 % (47-70); Platelet Count 385 K/mm3 (150-450); RBC Distribution Width CV 17.2 % (11.6-14.6); RBC Distribution Width SD 55.8 fl (35.1-43.9); Red Blood Count 4.14 M/mm3 (4.2-5.4); White Blood Count 8.4 K/mm3 (4.4-11.0)
[2024-06-09 12:27] LABS: Color, Urine Yellow (Yellow); Glucose, Dipstick Normal (Normal); Ketone-Dipstick Negative (Negative); Leukocyte Esterase-Dipstick 500 /ul (Negative); Nitrite-Dipstick Negative (Negative); Occult Blood-Urine 10 /ul (Negative); Protein-Dipstick Negative (Negative); Urine Bilirubin Dipstick Negative (Negative); Urine Clarity Clear (Clear); Urine Urobilinogen Normal (Normal)
[2024-06-09 12:41] LABS: Vitamin D,25 Hydroxy 57.6 ng/mL
[2024-06-09 12:46] LABS: ALB/GLOB Ratio 1.1 RATIO (0.9-2.4); AST(SGOT) 16 U/L (15-37); Alanine Aminotransfer ALT/SGPT 21 U/L (13-56); Albumin, Serum 3.6 g/dL (3.2-5.0); Alkaline Phosphatase 82 U/L (45-117); Anion Gap 2 (5-15); BUN 13 mg/dL (7-18); BUN/Creat Ratio 19.5 RATIO (10-20); Calcium,Total 9.7 mg/dL (8.5-10.1); Chloride 106 mmol/L (98-107); Cholesterol 165 mg/dL (200); Creatinine, Serum 0.66 mg/dL (0.55-1.02); EST Glomerular Filtration Rate 94 mL/min (>60); Est Glom Filt Rate - Afr Amer 114 mL/min (>60); Globulin 3.4 g/dL (2.2-4.2); Glucose 101 mg/dL (74-106); High Density Lipoprotein 61 mg/dL; Potassium 3.9 mmol/L (3.5-5.1); Sodium Level 136 mmol/L (136-145); Thyroid Stim Hormone (TSH) 0.845 uIU/mL (0.358-3.740); Triglycerides 98 mg/dL; Very Low Density Lipoprotein 20 mg/dL (5-40)
[2024-06-09 12:47] LABS: Bacteria 2+ /hpf (None Seen); Squamous Epithelial Cells - UA 0-5 SEEN /hpf (5-10); White Blood Cells 5-10 SEEN /hpf (0-5)
[2024-06-10 15:00] LABS: Hemoglobin A1c 5.6 % (3.8-5.6)
== END | disposition home or self-care (01) ==
LOC: MFPLAB 10:05
PROVIDERS: PCP Family Medicine; Visit Provider Family Medicine
DX: R73.09 Other abnormal glucose (principal); E78.00 Pure hypercholesterolemia, unspecified; I10 Essential (primary) hypertension; M81.0 Age-related osteoporosis without current pathological fracture
CPT/HCPCS: 36415; 80053; 80061; 81001; 82306; 83036; 83735; 84443; 85025

== ENCOUNTER → 2024-07-01 | Outpatient (CLI) | payer MEDICARE, SELFPAY ==
--- NOTE | 2024-07-01 12:11 | US_ITS ---
STUDY: THYROID ULTRASOUND REASON FOR EXAM: Female, 68 years old. Known nodules, follow-up TECHNIQUE: Ultrasound evaluation of the thyroid was performed with real-time and static cota-scale imaging. COMPARISON: 02/25/2023 FINDINGS: RIGHT LOBE: The right lobe of the thyroid gland measures 4.8 x 1.8 x 1.9 cm. There is a homogeneous echotexture. There is a stable cluster of cysts measuring 0.4 x 0.5 x 0.4 cm. This nodule is cystic or nearly completely cystic. TI-RADS points: 0. TI-RADS category: TR1. This nodule is benign and no FNA or follow-up is necessary. There is a hyperechoic lower pole solid nodule with peripheral flow measuring 0.3 x 0.4 x 0.3 cm. This nodule is solid or almost completely solid, hyperechoic or isoechoic, [id number], smoothly marginated and contains no echogenic foci. TI-RADS points: 3. TI-RADS category: TR3. This nodule is mildly suspicious but no FNA or follow-up is necessary given the small size of this nodule. There is a hypoechoic lower pole nodule with microcalcifications measuring 0.3 x 0.4 x 0.3 cm. This nodule is solid or almost completely solid, hypoechoic, [id number], smoothly marginated and contains no echogenic foci. TI-RADS points: 4. TI-RADS category: TR4. This nodule is moderately suspicious but no FNA or follow-up is necessary given the small size of this nodule. LEFT LOBE: The left lobe of the thyroid gland measures 4.9 x 1.6 x 1.7 cm. There is a homogeneous echotexture. There is a complex cyst measuring 0.4 x 0.5 x 0.3 cm, and a simple cyst measuring 0.5 x 0.4 x 2.2 cm. These nodules are cystic or nearly completely cystic. TI-RADS points: 0. TI-RADS category: TR1. These nodules are benign and no FNA or follow-up is necessary. ISTHMUS: The isthmus measures 0.3 cm. The regional lymph nodes are normal. US/Thyroid IMPRESSION: Normal-sized heterogeneous thyroid gland with multiple bilateral nodules. Categorization and follow-up as described above. Overall, little significant interval change since the previous study Electronically Signed: Jaguar Inman MD at 13:22 EDT ,
== END | disposition home or self-care (01) ==
PROVIDERS: PCP Family Medicine; Referring Provider Family Medicine; Visit Provider Family Medicine
DX: E04.2 Nontoxic multinodular goiter (principal)
CPT/HCPCS: 76536

== ENCOUNTER → 2024-10-07 | Outpatient (CLI) | payer MEDICARE, SELFPAY ==
[2024-10-07 10:37] LABS: Bacteria 0 SEEN /hpf (None Seen); Mucous, Urine 0 SEEN /hpf (<or=2+); Red Blood Cells-Urine 0 SEEN /hpf (0-5)
[2024-10-07 12:28] LABS: Color, Urine Yellow (Yellow); Glucose, Dipstick Normal (Normal); Ketone-Dipstick Negative (Negative); Leukocyte Esterase-Dipstick 100 /ul (Negative); Nitrite-Dipstick Negative (Negative); Occult Blood-Urine Negative /ul (Negative); Protein-Dipstick Negative (Negative); Urine Bilirubin Dipstick Negative (Negative); Urine Clarity Sl. Cloudy (Clear); Urine Urobilinogen Normal (Normal); Urine pH 6.5 (5.0 - 8.0)
[2024-10-07 12:38] LABS: Absolute Lymphocyte Count 1.24 X10^3/uL (0.83-4.51); Absolute Neutrophil Count 4.8 X10^3/uL (2.0-7.7); Basophil# 0.06 X10^3/uL; Basophil% 0.9 % (0-1); Eosinophils% 1.5 % (0-5); Hematocrit 36.9 % (37-47); Hemoglobin 11.7 g/dL (12.0-15.0); Lymphocyte # 1.24 X10^3/ul (0.83-4.51); Lymphocyte % 18.6 % (19-41); Mean Corp Hgb Conc 31.7 g/dL (32-36); Mean Corpuscular Hgb 28.2 pg (27.0-32.0); Mean Corpuscular Volume 88.9 fL (81-99); Monocyte# 0.47 X10^3/uL; NRBC Flagged by Analyzer 0 % (0-5); Neutrophil # 4.77 X10^3/uL (2.7-7.7); Neutrophil % 71.6 % (47-70); Platelet Count 320 K/mm3 (150-450); RBC Distribution Width CV 16.5 % (11.6-14.6); RBC Distribution Width SD 53.6 fl (35.1-43.9); Red Blood Count 4.15 M/mm3 (4.2-5.4); White Blood Count 6.7 K/mm3 (4.4-11.0)
[2024-10-07 12:41] LABS: Squamous Epithelial Cells - UA 0-5 SEEN /hpf (5-10)
[2024-10-07 12:42] LABS: White Blood Cells 0-5 SEEN /hpf (0-5)
[2024-10-07 12:53] LABS: Vitamin D,25 Hydroxy 38.5 ng/mL
[2024-10-07 13:17] LABS: ALB/GLOB Ratio 1.3 RATIO (0.9-2.4); AST(SGOT) 15 U/L (15-37); Alanine Aminotransfer ALT/SGPT 23 U/L (13-56); Albumin, Serum 3.7 g/dL (3.2-5.0); Alkaline Phosphatase 72 U/L (45-117); Anion Gap 6 (5-15); BUN 15 mg/dL (7-18); BUN/Creat Ratio 23.5 RATIO (10-20); Calcium,Total 9.6 mg/dL (8.5-10.1); Chloride 105 mmol/L (98-107); Cholesterol 178 mg/dL (200); Creatinine, Serum 0.64 mg/dL (0.55-1.02); EST Glomerular Filtration Rate 99 mL/min (>60); Est Glom Filt Rate - Afr Amer 119 mL/min (>60); Globulin 2.8 g/dL (2.2-4.2); Glucose 104 mg/dL (74-106); High Density Lipoprotein 58 mg/dL; Potassium 4.1 mmol/L (3.5-5.1); Protein, Total 6.5 g/dL (6.4-8.2); Sodium Level 138 mmol/L (136-145); Triglycerides 134 mg/dL; Very Low Density Lipoprotein 27 mg/dL (5-40)
[2024-10-08 16:29] LABS: Hemoglobin A1c 5.8 % (3.8-5.6)
[2024-10-08 16:30] LABS: Vitamin B12 433 pg/mL (211-911)
[2024-10-08 16:47] LABS: Ferritin 10 ng/mL (8-252); Iron 126 ug/dL (50-170); Iron Binding Capacity,Total 398 ug/dL (250-450); PERCENT IRON SATURATION 31.7 % (15.0-55.0)
== END | disposition home or self-care (01) ==
LOC: MFPLAB 10:35
PROVIDERS: PCP Family Medicine; Referring Provider Family Medicine; Visit Provider Family Medicine
DX: I10 Essential (primary) hypertension (principal); D64.9 Anemia, unspecified; M81.0 Age-related osteoporosis without current pathological fracture; R73.09 Other abnormal glucose
CPT/HCPCS: 36415; 80053; 80061; 81001; 82306; 82607; 82728; 83036; 83540; 83550; 83735; 84443; 85025

== ENCOUNTER → 2025-03-30 | Outpatient (CLI) | payer MEDICARE, SELFPAY ==
[2025-03-30 12:54] LABS: Absolute Lymphocyte Count 1.21 X10^3/uL (0.83-4.51); Absolute Neutrophil Count 7.7 X10^3/uL (2.0-7.7); Basophil# 0.06 X10^3/uL; Basophil% 0.6 % (0-1); Eosinophil# 0.25 X10^3/uL; Eosinophils% 2.5 % (0-5); Hematocrit 34.9 % (37-47); Hemoglobin 11.6 g/dL (12.0-15.0); Lymphocyte # 1.21 X10^3/ul (0.83-4.51); Lymphocyte % 12.2 % (19-41); Mean Corp Hgb Conc 33.2 g/dL (32-36); Mean Corpuscular Hgb 29.1 pg (27.0-32.0); Mean Corpuscular Volume 87.7 fL (81-99); Mean Platelet Vol. 10.2 fl (6.2-12.0); Monocyte# 0.63 X10^3/uL; Monocyte% 6.4 % (0-10); NRBC Flagged by Analyzer 0 % (0-5); Neutrophil % 77.8 % (47-70); Platelet Count 364 K/mm3 (150-450); RBC Distribution Width CV 14.6 % (11.6-14.6); RBC Distribution Width SD 46.5 fl (35.1-43.9); Red Blood Count 3.98 M/mm3 (4.2-5.4); White Blood Count 9.9 K/mm3 (4.4-11.0)
[2025-03-30 13:27] LABS: Microalbumin,Random Urine < 12.0 mg/L (NO RANGE EST.); Microalbumin:Creatinine Ratio UNABLE TO CALCULATE mg/g CRE
[2025-03-30 13:40] LABS: Hemoglobin A1c 6.2 % (<=5.6)
[2025-03-30 13:46] LABS: Cholesterol 178 mg/dL (<=200); High Density Lipoprotein 52 mg/dL; Low Density Lipoprotein Calc. 106 mg/dL; Triglycerides 101 mg/dL; Very Low Density Lipoprotein 20 mg/dL (5-40); Vitamin D,25 Hydroxy 38.5 ng/mL (30-100); cholesterol:hdl ratio screen 3.45
[2025-03-30 13:53] LABS: ALB/GLOB Ratio 1.8 RATIO (0.9-2.4); AST(SGOT) 26 U/L (<=31); Alanine Aminotransfer ALT/SGPT 26 U/L (<=34); Albumin, Serum 4.1 g/dL (3.4-4.8); Alkaline Phosphatase 76 U/L (35-104); Anion Gap 10 (5-15); BUN 14 mg/dL (4-19); BUN/Creat Ratio 21.4 RATIO (10-20); Calcium,Total 9.7 mg/dL (7.6-11.0); Carbon Dioxide 24.3 mmol/L (21.0-32.0); Chloride 105 mmol/L (98-108); Creatinine, Serum 0.67 mg/dL (0.70-1.20); EST Glomerular Filtration Rate 95 (>60); Globulin 2.3 g/dL (2.2-4.2); Glucose 113 mg/dL (70-99); Potassium 4.6 mmol/L (3.3-5.1); Protein, Total 6.4 g/dL (5.9-8.4); Sodium Level 140 mmol/L (133-145); Total Bilirubin < 0.15 mg/dL (0.00-1.30)
[2025-03-31 14:06] LABS: Ferritin 15 ng/mL (22-378); Iron 34 ug/dL (50-170); Iron Binding Capacity,Total 366 ug/dL (250-450); Iron Binding Capacity,Unsat 332 ug/dL (228-428); Vitamin B12 463 pg/mL (180-914)
== END | disposition home or self-care (01) ==
LOC: MTLAB 09:30
PROVIDERS: PCP Family Medicine; Referring Provider Family Medicine; Visit Provider Family Medicine
DX: D64.9 Anemia, unspecified (principal); E55.9 Vitamin D deficiency, unspecified; E78.00 Pure hypercholesterolemia, unspecified; I10 Essential (primary) hypertension; R73.02 Impaired glucose tolerance (oral)
CPT/HCPCS: 36415; 80053; 80061; 82043; 82306; 82570; 82607; 82728; 83036; 83540; 83550; 85025

== ENCOUNTER → 2025-04-04 | Outpatient (CLI) | payer MEDICARE, SELFPAY ==
[2025-04-04 12:24] LABS: Absolute Lymphocyte Count 1.51 X10^3/uL (0.83-4.51); Absolute Neutrophil Count 4.7 X10^3/uL (2.0-7.7); Basophil# 0.06 X10^3/uL; Basophil% 0.8 % (0-1); Eosinophils% 2.8 % (0-5); Hematocrit 35.6 % (37-47); Hemoglobin 11.4 g/dL (12.0-15.0); Lymphocyte # 1.51 X10^3/ul (0.83-4.51); Mean Corpuscular Hgb 28.4 pg (27.0-32.0); Mean Corpuscular Volume 88.8 fL (81-99); Mean Platelet Vol. 9.8 fl (6.2-12.0); Monocyte# 0.66 X10^3/uL; Monocyte% 9.2 % (0-10); NRBC Flagged by Analyzer 0 % (0-5); Neutrophil % 65.4 % (47-70); Platelet Count 419 K/mm3 (150-450); RBC Distribution Width CV 14.5 % (11.6-14.6); RBC Distribution Width SD 46.6 fl (35.1-43.9); Red Blood Count 4.01 M/mm3 (4.2-5.4); White Blood Count 7.2 K/mm3 (4.4-11.0)
[2025-04-04 13:17] LABS: Iron 110 ug/dL (50-170); Iron Binding Capacity,Total 384 ug/dL (250-450); Iron Binding Capacity,Unsat 274 ug/dL (228-428)
[2025-04-04 13:21] LABS: Ferritin 20 ng/mL (22-378); Vitamin B12 469 pg/mL (180-914)
--- OUTSIDE RECORDS SUMMARY | 2025-04-04 22:04 | XMS RPT_ITS | CCD ---
Author Organization [facility] Care Team Providers Care Instrumentation Instructor Name Role Phone Jose Garzon Primary Care Provider Dr. Jose Garzon Primary Care Provider Dr. Jose Garzon Referring Provider Dr. Yuri Hanks Attending Provider Dr. Yuri Hanks Other Provider Dr. Yuri Hanks Referring Provider Jose Garzon Primary Care Provider [phone] IFEOMA SORIA MD Admitting Unavailable JOSE GARZON Referring Unavailable JOSE GARZON Consulting Unavailable IFEOMA SORIA MD Attending Unavailable IFEOMA SORIA MD Primary Care Unavailable PROVIDER, UNKNOWN Consulting Unavailable Dr. Jose Garzon Primary Care Provider [phone] Dr. Jose Garzon Referring Provider Carmela DIRECTOR COMPENSATION, DIRECTOR COMPENSATION-Amada Dickinson Attending Provider Dr. Melissa Stinson Attending Provider Dr. Dillan Cristina Attending Provider Dr. Jose Garzon Primary Care Provider [phone] Dr. Jose Garzon Referring Provider Carmela DIRECTOR COMPENSATION, DIRECTOR COMPENSATION-C Teena Attending Provider Dr. Melissa Stinson Attending Provider Dr. Dillan Cristina Attending Provider Dr. Dillan Cristina Referring Provider Dr. Maico Hill Attending Provider [phone] Dr. Melissa Stinson Referring Provider Dr. Melissa Stinson Other Provider [phone] Melissa Stinson Admit Provider Schinner, Jose E Primary Care Unavailable Keven Joshi Attending Unavailable Keven Joshi Referring Unavailable MadelynKeven bryant Attending Unavailable Madelyn, Keven Referring Unavailable Schinner, Jose E Primary Care Unavailable Madelyn, Keven Attending Unavailable Madelyn, Keven Referring Unavailable Schinner, Jose E Primary Care Unavailable Keven Joshi Attending Unavailable Madelyn, Keven Referring Unavailable Schinner, Jose E Primary Care Unavailable Schinner, Jose E Primary Care Unavailable Madelyn, Keven Referring Unavailable MadelynKeven bryant Attending Unavailable Schinner, Jose E Referring Unavailable Schinner, Jose E Primary Care Unavailable Jose Hare NP Attending Unavailable Schinner, Jose E Referring Unavailable Schinner, Jose E Primary Care Unavailable Dillan Cirstina Attending Unavailable Schinner, Jose E Referring Unavailable Schinner, Jose E Primary Care Unavailable Melissa Stinson Attending Unavailable Schinner, Jose E Primary Care Unavailable Mollison, Víctor Consulting Unavailable Pilar Renae Admitting Unavailable Kimberlee Manriquez Attending Unavailable Pilar Renae Consulting Unavailable Kimberlee Manriquez Consulting Unavailable Schinner, Jose E Attending Unavailable Schinner, Jose E Referring Unavailable Schinner, Jose E Primary Care Unavailable Schinner, Jose E Referring Unavailable Schinner, Jose E Attending Unavailable Schinner, Jose E Primary Care Unavailable Schinner, Jose E Referring Unavailable Schinner, Jose E Attending Unavailable Schinner, Jose E Primary Care Unavailable Mollison, Víctor Consulting Unavailable Eliezer Slater Attending Unavailable Pilar Renae Admitting Unavailable Schinner, Jose E Primary Care Unavailable Pilar Renae Consulting Unavailable Kimberlee Manriquez Consulting Unavailable Schinner, Jose E Referring Unavailable Keven Joshi Attending Unavailable Schinner, Jose E Primary Care Unavailable Schinner, Jose E Referring Unavailable Schinner, Jose E Primary Care Unavailable Melissa Stinson Attending Unavailable Schinner, Jose E Referring Unavailable Izzy Ferreira NP Attending Unavailable Schinner, Jose E Primary Care Unavailable Schinner, Jose E Referring Unavailable Schinner, Jose E Primary Care Unavailable Jaye Driscoll Attending Unavailable Schinner, Jose E Referring Unavailable Keven Joshi Attending Unavailable Schinner, Jose E Primary Care Unavailable Schinner, Jose E Referring Unavailable Schinner, Jose E Primary Care Unavailable Keven Joshi Attending Unavailable Schinner, Jose E Referring Unavailable Schinner, Jose E Attending Unavailable Schinner, Jose E Primary Care Unavailable Dillan Cristina Attending Unavailable Dillan Cristina Referring Unavailable Schinner, Jose E Primary Care Unavailable Schinner, Jose E Attending Unavailable Schinner, Jose E Primary Care Unavailable Víctor German Attending Unavailable Eliezer Slater Consulting Unavailable Pilar Renae Attending Unavailable Eliezer Slater Attending Unavailable Schinpam, Jose E Primary Care Unavailable Keven Joshi Referring Unavailable Keven Joshi Attending Unavailable Schinner, Jsoe E Referring Unavailable Schinner, Jose E Primary Care Unavailable Izzy Ferreira NP Attending Unavailable Schinpam, Jose E Referring Unavailable Keven Joshi Attending Unavailable Schinpam, Jose E Primary Care Unavailable Eliezer Slater Referring Unavailable Schinner, Jose E Primary Care Unavailable Schinner, Jose E Referring Unavailable Víctor German Attending Unavailable Belkys, Jose E Primary Care Unavailable Keven Joshi Attending Unavailable Keven Joshi Referring Unavailable Schinpam, Jose E Primary Care Unavailable Keven Joshi Referring Unavailable Keven Joshi Attending Unavailable Allergies Allergy Classification Reported Allergen(s) Allergy Type Date of Onset Reaction(s) Facility (2 sources) Cat Propensity to adverse reactions 8 [facility] Work Phone: (2 sources) cow milk allergenic extract Drug Allergy 8 Intolerance [facility] Work Phone: (10 sources) Sulfonamides (Antibiotic) Allergy to substance 4 [facility] (1 source) Sulfonamides (Antibiotic) Drug allergy (disorder) 5 [facility] Repository Medications Current Medications Medication Drug Class(es) Dates Sig (Normalized) Sig (Original) acetaminophen 325 mg / HYDROcodone bitartrate 5 mg oral tablet (1 source) Opioid Agonist Start: 02-07-2024 take 1 tablet by mouth every six hours Hydrocodone-Aceta minophen Active 1 TABLET PO EVERY 6 HOURS 14 3 February 07, 2024 Start: 02-07-2024 take 1 tablet by avril th every six hours Hydrocodone-Acetaminophen Active 1 TABLE T PO EVERY 6 HOURS 14 3 February 07, 2024 [id number] 200 actuat albuterol 0.09 mg/actuat metered dose inhaler (10 sources) beta2-Adrenergic Agonist Start: 04-30-2023 take 1 puff(s) by inhalation every four hours Albuterol Sulfate (Ventolin Hfa) 90 mcg/actuation HFA aerosol inhaler Active 2 PUFF INHALATION Q4H April 30, 2023 12:00am amLODIPine 10 mg oral tablet (15 sources) Dihydropyridine Calcium Channel Clark Start: 01-02-2023 take 10 mg by mouth once daily Amlodipine Active 10 MG PO DAILY January 02, 2023 12:00am fexofenadine hydrochloride 180 mg oral tablet (20 sources) Histamine-1 Receptor Antagonist Start: 01-23-2024 take 1 tablet by mouth once daily Fexofenadine (Aller-Fex) 180 mg tablet Active 180 MG PO DAILY January 23, 2024 12:00am Start: 02-20-2017 take 1 tablet by avril th once daily Fexofenadine (Soni Allergy) 60 MG tablet Active 60 MG PO DAILY February 20, 2017 12:00am Start: 08-28-2005 SONI 180 MG TAB Take one(1) tablet daily. 0 08/28/2005 Active Comment on above: Take one(1) tablet d aily. Fluticasone Propion-Salmeterol (20 sources) Corticosteroid, beta2-Adrenergic Agonist Start: 09-10-2023 Fluticasone Propion-Salmeterol (Advair Diskus) 500-50 mcg/dose blister with device Active 1 INH INHALATION TWICE A DAY September 10, 2023 1:00am Start: 09-10-2023 Fluticasone Pr opion-Salmeterol (Advair Diskus) 500-50 mcg/dose blister with device Active 1 INH INHALATION TWICE A DAY September 10, 2023 12:00am Start: 02-13-2023 End: 09-10-2023 Fluticasone Propion-Salmeter ol (Advair Diskus) 250-50 mcg/dose blister with device Discontinued 1 INH INHALATION TWICE A DAY 60 February 13, 2023 7:05am September 10, 2023 3:32pm Start: 02-13-2023 End: 09-10-2023 Fluticasone Propion-Salmeter ol (Advair Diskus) 250-50 mcg/dose blister with device Discontinued 1 INH INHALATION TWICE A DAY 60 February 13, 2023 6:05am September 10, 2023 2:32pm Start: 02-13-2023 Fluticasone Pr opion-Salmeterol (Advair Diskus) 250-50 mcg/dose blister with device Active 1 INH INHALATION TWICE A DAY 60 February 13, 2023 7:05am Start: 12-28-2022 End: 02-13-2023 Fluticasone Propion-Salmeter ol (Advair Diskus) 250-50 mcg/dose blister with device Discontinued 1 INH INHALATION TWICE A DAY 60 December 28, 2022 12:00am February 13, 2023 6:06am Start: 12-28-2022 End: 02-13-2023 Fluticasone Propion-Salmeter ol (Advair Diskus) 250-50 mcg/dose blister with device Discontinued 1 INH INHALATION TWICE A DAY 60 December 28, 2022 1:00am February 13, 2023 7:06am Start: 12-28-2022 Fluticasone Pr opion-Salmeterol (Advair Diskus) 250-50 mcg/dose blister with device Active 1 INH INHALATION TWICE A DAY 60 December 28, 2022 1:00am Start: 12-28-2022 Fluticasone Pr opion-Salmeterol (Advair Diskus) 250-50 mcg/dose blister with device Active 1 INH INHALATION TWICE A DAY 60 December 28, 2022 12:00am lisinopril 40 mg oral tablet (20 sources) Angiotensin Converting Enzyme Inhibitor Start: 01-23-2024 take 40 mg by mouth once daily Lisinopril Active 40 MG PO DAILY January 23, 2024 12:00am Start: 01-02-2023 take 40 mg by mouth once daily Lisinopril Active 40 MG PO DAILY January 02, 2023 6:44am Start: 01-02-2023 take 20 mg by mouth once daily Lisinopril Active 20 MG PO DAILY January 02, 2023 5:44am Start: 07-25-2013 End: 01-02-2023 take 10 mg by mouth once daily Lisinopril Discontinued 10 MG PO DAILY July 25, 2013 12:00am January 02, 2023 6:47am Comment on above: Take 10 mg by mouth once daily. mesalamine 1200 mg delayed release oral tablet (20 sources) Aminosalicylate Start: 3 take 2.4 g by mouth twice daily Mesalamine Active 2.4 GM PO TWICE A DAY January 02, 2023 12:00am Start: 09-16-2017 take 2 tablets by mo uth twice daily LIALDA 1.2 gram EC tablet TAKE TWO TABLETS BY MOUTH TWICE DAILY 120 tablet 6 09/16/2017 Active Start: 07-25-2013 take 2 tablets by mo uth three times daily Mesalamine (Asacol) 400 MG tablet Active 800 MG PO THREE TIMES A DAY July 25, 2013 12:00am Comment on above: TAKE TWO TABLETS BY MOUTH TWICE DAILY omeprazole 10 mg delayed release oral capsule (15 sources) Proton Pump Inhibitor Start: 3 take 10 mg by mouth once daily Omeprazole Active 10 MG PO DAILY January 02, 2023 12:00am rosuvastatin calcium 10 mg oral tablet (15 sources) HMG-CoA Reductase Inhibitor Start: 3 take 10 mg by mouth once daily Rosuvastatin Active 10 MG PO DAILY January 02, 2023 12:00am Completed/Discontinued Medications Medication Drug Class(es) Dates Sig (Normalized) Sig (Original) amoxicillin 500 mg oral capsule (19 sources) Penicillin-class Antibacterial Start: 01-10-2022 End: 01-02-2023 take 500 mg by mouth every six hours Amoxicillin Discontinued 500 MG PO EVERY 6 HOURS January 10, 2022 12:00am January 02, 2023 6:42am amoxicillin 875 mg / clavulanate 125 mg oral tablet (20 sources) Penicillin-class Antibacterial Start: 08-28-2023 End: 10-14-2023 take 1 tablet by mouth twice daily Amoxicillin-Pot Clavulanate Discontinued 1 TABLET PO TWICE A DAY August 28, 2023 1:00am October 14, 2023 12:12pm Start: 01-10-2022 End: 01-02-2023 take 1 tablet by mouth twice daily Amoxicillin-Pot Clavulanate Discontinued 1 TABLET PO TWICE A DAY January 10, 2022 12:00am January 02, 2023 6:43am azithromycin 250 mg oral tablet (20 sources) Macrolide Antimicrobial Start: 01-01-2024 End: 01-13-2024 Azithromycin Discontinued 0 PO .COMPLEX 6 January 01, 2024 12:00am January 13, 2024 3:04pm take 500 mg today (day 1), then 250 mg for 4 days (days 2-5) PO Start: 10-26-2023 End: 12-15-2023 take 250 mg by mouth once daily Azithromycin Discontinued 250 MG PO DAILY October 26, 2023 1:00am December 15, 2023 4:36pm Start: 01-22-2020 End: 01-02-2023 Azithromycin Discontinued 25 0 MG PO DIRECTED January 22, 2020 12:00am January 02, 2023 6:43am benzonatate 200 mg oral capsule (10 sources) Non-narcotic Antitussive Start: 09-10-2023 End: 12-15-2023 take 200 mg by mouth three times daily Benzonatate Discontinued 200 MG PO THREE TIMES A DAY September 10, 2023 1:00am December 15, 2023 4:36pm doxycycline hyclate 100 mg oral tablet (10 sources) Tetracycline-class Drug Start: 09-26-2023 End: 10-14-2023 take 100 mg by mouth twice daily Doxycycline Hyclate Discontinued 100 MG PO TWICE A DAY September 26, 2023 1:00am October 14, 2023 12:12pm fluticasone propionate 0.05 mg/actuat metered dose nasal spray (2 sources) Corticosteroid Start: 03-09-2018 take 2 spray(s) by mouth once daily fluticasone (FLONASE) 50 mcg/actuation nasal spray Use 2 Sprays in each nostril once daily. Rinse mouth after use. 1 Bottle 0 03/09/2018 Active Comment on above: Use 2 Sprays in each nostril once daily. Rinse mouth after use. LORazepam 0.5 mg oral tablet (8 sources) Benzodiazepine Start: 12-30-2023 End: 01-23-2024 Lorazepam (Ativan) 0.5 mg tablet Discontinued 0.5 MG PO .X1 December 30, 2023 12:00am January 23, 2024 8:56am 30 minutes prior to MRI, do not drive Start: 12-11-2023 End: 12-28-2023 take 1 tablet by mouth every hour Lorazepam (Ativan) 1 mg tablet Discontinued 1 MG PO As Directed December 11, 2023 1:00am December 28, 2023 8:56am One (1) mg tablet to be taken One (1) hour prior to procedure Mometasone (Asmanex Hfa) 200 mcg/actuation HFA aerosol inhaler (15 sources) Start: 01-02-2023 End: 02-13-2023 take 1 puff(s) by inhalation twice daily Mometasone (Asmanex Hfa) 200 mcg/actuation HFA aerosol inhaler Discontinued 1 PUFF INHALATION TWICE A DAY January 01, 2023 11:00pm February 13, 2023 6:05am Start: 01-02-2023 End: 02-13-2023 take 1 puff(s) by inhalation twice daily Mometasone (Asmanex Hfa) 200 mcg/actuation HFA aerosol inhaler Discontinued 1 PUFF INHALATION TWICE A DAY January 02, 2023 12:00am February 13, 2023 7:05am Start: 01-02-2023 take 1 puff(s) by in halation twice daily Mometasone (Asmanex Hfa) 200 mcg/actuation HFA aerosol inhaler Active 1 PUFF INHALATION TWICE A DAY January 02, 2023 12:00am montelukast 10 mg oral tablet (20 sources) Leukotriene Receptor Antagonist Start: 08-28-2005 End: 02-13-2023 take 10 mg by mouth once daily Montelukast Discontinued 10 MG PO DAILY July 25, 2013 12:00am February 13, 2023 7:06am Comment on above: Take one(1) tablet a t bedtime MULTIVITAMIN ORAL (2 sources) MULTIVITAMIN ORA L Take by mouth once daily. 0 Active Comment on above: Take by mouth once d aily. naproxen 500 mg oral tablet (19 sources) Nonsteroidal Anti-inflammatory Drug Start: 01-10-2022 End: 12-04-2023 take 500 mg by mouth twice daily Naproxen Discontinued 500 MG PO TWICE A DAY January 10, 2022 12:00am December 04, 2023 4:05pm predniSONE 10 mg oral tablet (20 sources) Start: 01-01-2024 End: 01-13-2024 Prednisone Discontinued 10 MG PO daily January 01, 2024 12:00am January 13, 2024 3:04pm take 4 tabs for three days, then 3 tabs for three days, then 2 tabs for three days, then 1 tab for 3 days Start: 12-28-2023 End: 01-01-2024 take 40 mg by mouth once daily Prednisone Discontinued 40 MG PO DAILY December 28, 2023 1:00am January 01, 2024 8:49am Start: 08-28-2023 End: 10-14-2023 Prednisone Discontinued 10 M G PO daily August 28, 2023 1:00am October 14, 2023 12:13pm take 4 tabs for three days, then 3 tabs for three days, then 2 tabs for three days, then 1 tab for 3 days Start: 12-28-2022 End: 02-13-2023 take 10 mg by mouth every other day Prednisone Discontinued 10 MG PO EVERY OTHER DAY December 28, 2022 1:00am February 13, 2023 6:46am Start: 03-26-2017 take 1 tablet by avril th twice daily predniSONE (DELTASONE) 20 mg tablet Take 1 tablet by mouth twice daily. 60 tablet 3 03/26/2017 Active Comment on above: Take 1 tablet by avril th twice daily. 60 actuat tiotropium 0.77297 mg/actuat inhalation spray (10 sources) Anticholinergic Start: 09-10-20 End: 10-14-20 take 1 puff(s) by inhalation once daily Tiotropium [place] (Spiriva Respimat) 1.25 mcg/actuation mist Discontinued 2 PUFF INHALATION DAILY September 10, 2023 1:00am October 14, 2023 12:14pm Problems Active Problems Problem Classification Problem Date Documented Date Episodic/Chronic Acute bronchitis (4 sources) Acute bronchitis with bronchospasm; Translations: [Acute bronchitis, unspecified] 12-28-2023 Episodic Asthma (20 sources) Asthma; Translations: [Unspecified asthma, uncomplicated] Onset: 11-28-2024 01-02-2023 Chronic Cancer of breast (20 sources) Infiltrating duct carcinoma of breast; Translations: [Malignant neoplasm of unspecified site of unspecified female breast] Onset: 05-10-2024 12-11-2023 Chronic Deficiency and other anemia (1 source) Anemia, unspecified; Translations: [Anemia, unspecified] Onset: 04-01-2025 Episodic Essential hypertension (20 sources) Hypertensive disorder; Translations: [Essential (primary) hypertension] Onset: 11-04-2024 01-23-2020 Chronic Nonmalignant breast conditions (20 sources) Breast lump; Translations: [Unspecified lump in the left breast, unspecified quadrant] 12-04-2023 Episodic Nonspecific chest pain (19 sources) Chest pain; Translations: [Chest pain, unspecified] 01-23-2020 Episodic Open wounds of extremities (19 sources) Cat bite - wound; Translations: [Open bite of right hand, initial encounter] 01-18-2022 Episodic Osteoarthritis (10 sources) Arthritis; Translations: [Unspecified osteoarthritis, unspecified site] 10-14-2023 Chronic Osteoporosis (10 sources) Senile osteoporosis; Translations: [Age-related osteoporosis without current pathological fracture] 10-14-2023 Chronic Other lower respiratory disease (20 sources) Cough; Translations: [Cough] 01-02-2023 Episodic Other skin disorders (16 sources) Localized swelling, mass and lump, right upper limb; Translations: [Mass of right axilla] 12-04-2023 Episodic Pneumonia (except that caused by tuberculosis or sexually transmitted disease) (10 sources) Pneumonia; Translations: [Pneumonia, unspecified organism] 10-26-2023 Episodic Regional enteritis and ulcerative colitis (12 sources) Ulcerative colitis; Translations: [Ulcerative colitis, unspecified, without complications] 07-14-2008 Chronic Residual codes; unclassified (1 source) Acquired absence of bilateral breasts and nipples; Translations: [Acquired absence of breast and nipple] 02-07-2024 Episodic Residual codes; unclassified (2 sources) Estrogen receptor positive status [ER+]; Translations: [Estrogen receptor positive status [ER+]] Onset: 10-28-2024 Episodic Spondylosis; intervertebral disc disorders; other back problems (10 sources) Degeneration of intervertebral disc; Translations: [Degeneration of intervertebral disc] 10-14-2023 Chronic Thyroid disorders (1 source) Nontoxic multinodular goiter; Translations: [Nontoxic multinodular goiter] Onset: 07-21-2024 Chronic Past or Other Problems Problem Classification Problem Date Documented Da te Episodic/Chronic Diabetes mellitus without complication (1 source) Other abnormal glucose; Translations: [Other abnormal glucose] Onset: 06-29-2024 Episodic E Codes: Natural/environment (2 sources) Bitten by cat, initial encounter; Translations: [Bitten by cat, initial encounter] Onset: 05-06-2024 Episodic Hemorrhoids (2 sources) Internal hemorrhoids; Translations: [Other hemorrhoids] Onset: 01-22-2007 07-14-2008 Episodic Skin and subcutaneous tissue infections (20 sources) Abscess; Translations: [Cutaneous abscess, unspecified] Onset: 05-18-2024 07-25-2013 Episodic Results Test Name Value Interpretation Reference Range Facility Ferritinon 03-31-2025 Ferritin [Mass/Vol] 15 ng/mL Low 22-378 [facility] Comment on above: Order Comment: GRACIA Gomez ADD IBC WAQAR B12 TO BLOOD DRAWN 03/30/25 PERDR.SCHINNEROrder Date: 03/30/25Order Info: [id number] - CMPOrder Info: [id number] - LIPID Performed By: #### L [id number], L506.1001, L503.0106, L502.0250, L503.6030 ####[facility] [address] [place], [place], [id number] Iron+Iron Binding Capacityon 03-31-2025 Iron [Mass/Vol] 34 ug/dL Low 50-170 [facility] Comment on above: Order Comment: GRACIA Gomez ADD IBC WAQAR B12 TO BLOOD DRAWN 03/30/25 PERDR.SCHINNEROrder Date: 03/30/25Order Info: [id number] - CMPOrder Info: [id number] - LIPIDadd one 06/09/24 Performed By: #### L [id number], L506.1001, L503.0106, L502.0250, L503.6030 ####[facility] [address] [place], [address] IRON SATURATION 9.0 Low 13-59 [facility] Comment on above: Order Comment: GRACIA Gomez ADD IBC WAQAR B12 TO BLOOD DRAWN 03/30/25 PERDR.SCHINNEROrder Date: 03/30/25Order Info: [id number] - CMPOrder Info: [id number] - LIPIDadd one 06/09/24 Performed By: #### L [id number], L506.1001, L503.0106, L502.0250, L503.6030 ####[facility] [address] [place], [address] TIBC 366 ug/dL Normal 250-450 [facility] Comment on above: Order Comment: GRACIA Gomez ADD IBC WAQAR B12 TO BLOOD DRAWN 03/30/25 PERDR.SCHINNEROrder Date: 03/30/25Order Info: [id number] - CMPOrder Info: [id number] - LIPIDadd one 06/09/24 Performed By: #### L 503.6550, L506.1001, L503.0106, L502.0250, L503.6030 ####[facility] [address] [place], [address] UIBC 332 ug/dL Normal 228-428 [facility] Comment on above: Order Comment: GRACIA Gomez ADD IBC WAQAR B12 TO BLOOD DRAWN 03/30/25 PERDR.SCHINNEROrder Date: 03/30/25Order Info: [id number] - CMPOrder Info: [id number] - LIPIDadd one 06/09/24 Performed By: #### L [id number], L506.1001, L503.0106, L502.0250, L503.6030 ####[facility] [address] [place], [address] Vitamin B12on 03-31-2025 Cobalamin (Vitamin B12) [Mass/Vol] 463 pg/mL Normal 180-914 [facility] Comment on above: Order Comment: PLEAS E ADD IBC WAQAR B12 TO BLOOD DRAWN 03/30/25 JENNIFERMEAGANPAMOrder Date: 03/30/25Order Info: [id number] - CMPOrder Info: [id number] - LIPID Performed By: #### L [id number], L506.1001, L503.0106, L502.0250, L503.6030 ####[facility] [address] [place], [address] CBC W/Diff, Automatedon 03-20 Absolute Lymph 1.21 X10 3/uL Normal 0.83-4.51 [facility] Comment on above: Order Comment: Order Date: 03/30/25Order Info: [id number] - CBCD Performed By: #### L 500.4050, L100.0100, L501.9985, L500.4100 ####[facility] [address] [place], [address] Absolute Neut 7.7 X10 3/uL Normal 2.0-7.7 [facility] Comment on above: Order Comment: Order Date: 03/30/25Order Info: [id number]- - CBCD Performed By: #### L 500.4050, L100.0100, L501.9985, L500.4100 ####[facility] [address] [place], [address] Basophils/100 WBC (Bld) 0.6 % Normal 0-1 [facility] Comment on above: Order Comment: Order Date: 03/30/25Order Info: [id number] - CBCD Performed By: #### L [id number], L100.0100, L501.9985, L500.4100 ####[facility] [address] [place], [address] Eosinophils/100 WBC (Bld) 2.5 % Normal 0-5 [facility] Comment on above: Order Comment: Order Date: 03/30/25Order Info: [id number] - CBCD Performed By: #### L 500.4050, L100.0100, L501.9985, L500.4100 ####[facility] [address] [place], [address] Erythrocyte distribution width (RBC) [Ratio] 14.6 % Normal 11.6-14.6 [facility] Comment on above: Order Comment: Order Date: 03/30/25Order Info: [id number] - CBCD Performed By: #### L [id number], L100.0100, L501.9985, L500.4100 ####[facility] [address] [place], [address] Hematocrit (Bld) [Volume fraction] 34.9 % Low 37-47 [facility] Comment on above: Order Comment: Order Date: 03/30/25Order Info: [id number] - CBCD Performed By: #### L [id number], L100.0100, L501.9985, L500.4100 ####[facility] [address] [place], [address] Hemoglobin (Bld) [Mass/Vol] 11.6 g/dL Low 12.0-15.0 [facility] Comment on above: Order Comment: Order Date: 03/30/25Order Info: [id number] - CBCD Performed By: #### L [id number], L100.0100, L501.9985, L500.4100 ####[facility] [address] [place], [address] IG% 0.500 Normal 0.0-0.9 [facility] Comment on above: Order Comment: Order Date: 03/30/25Order Info: [id number] - CBCD Result Comment: IG% - Immature Granulocytes (promyelocytes, myelocytes andmetamyelocytes) > 1% indicates that a LEFT SHIFT is Present. Performed By: #### L 500.4050, L100.0100, L501.9985, L500.4100 ####[facility] [address] [place], [address] Lymphocytes/100 WBC (Bld) 12.2 % Low 19-41 [facility] Comment on above: Order Comment: Order Date: 03/30/25Order Info: [id number] - CBCD Performed By: #### L 500.4050, L100.0100, L501.9985, L500.4100 ####[facility] [address] [place], [address] MCH (RBC) [Entitic mass] 29.1 pg Normal 27.0-32.0 [facility] Comment on above: Order Comment: Order Date: 03/30/25Order Info: [id number] - CBCD Performed By: #### L 500.4050, L100.0100, L501.9985, L500.4100 ####[facility] [address] [place], [address] MCHC (RBC) [Mass/Vol] 33.2 g/dL Normal 32-36 [facility] Comment on above: Order Comment: Order Date: 03/30/25Order Info: [id number] - CBCD Performed By: #### L 500.4050, L100.0100, L501.9985, L500.4100 ####[facility] [address] [place], [address] MCV (RBC) [Entitic vol] 87.7 fL Normal 81-99 [facility] Comment on above: Order Comment: Order Date: 03/30/25Order Info: [id number] - CBCD Performed By: #### L 500.4050, L100.0100, L501.9985, L500.4100 ####[facility] [address] [place], [address] Monocytes/100 WBC (Bld) 6.4 % Normal 0-10 [facility] Comment on above: Order Comment: Order Date: 03/30/25Order Info: [id number] - CBCD Performed By: #### L 500.4050, L100.0100, L501.9985, L500.4100 ####[facility] [address] [place], [address] Neutrophils/100 WBC (Bld) 77.8 % High 47-70 [facility] Comment on above: Order Comment: Order Date: 03/30/25Order Info: [id number] - CBCD Performed By: #### L 500.4050, L100.0100, L501.9985, L500.4100 ####[facility] [address] [place], [address] Nucleated RBC (Bld) [#/Vol] 0 10*3/uL Normal 0-5 [facility] Comment on above: Order Comment: Order Date: 03/30/25Order Info: [id number]- - CBCD Performed By: #### L 500.4050, L100.0100, L501.9985, L500.4100 ####[facility] [address] [place], [address] Platelet mean volume (Bld) [Entitic vol] 10.2 fL Normal 6.2-12.0 [facility] Comment on above: Order Comment: Order Date: 03/30/25Order Info: [id number]- - CBCD Performed By: #### L 500.4050, L100.0100, L501.9985, L500.4100 ####[facility] [address] [place], [address] Platelets (Bld) [#/Vol] 364 10*3/uL Normal 150-450 [facility] Comment on above: Order Comment: Order Date: 03/30/25Order Info: [id number] - CBCD Performed By: #### L 500.4050, L100.0100, L501.9985, L500.4100 ####[facility] [address] [place], [address] RBC (Bld) [#/Vol] 3.98 10*6/uL Low 4.2-5.4 [facility] Comment on above: Order Comment: Order Date: 03/30/25Order Info: [id number] - CBCD Performed By: #### L 500.4050, L100.0100, L501.9985, L500.4100 ####[facility] [address] [place], [address] RDW SD 46.5 fl High 35.1-43.9 [facility] Comment on above: Order Comment: Order Date: 03/30/25Order Info: [id number] - CBCD Performed By: #### L 500.4050, L100.0100, L501.9985, L500.4100 ####[facility] [address] [place], [address] WBC (Bld) [#/Vol] 9.9 10*3/uL Normal 4.4-11.0 [facility] Comment on above: Order Comment: Order Date: 03/30/25Order Info: [id number] - CBCD Performed By: #### L 500.4050, L100.0100, L501.9985, L500.4100 ####[facility] [address] [place], [address] Comprehensive Metabolic Prof ilon 03-30-2025 Albumin [Mass/Vol] 4.1 g/dL Normal 3.4-4.8 [facility] Comment on above: Order Comment: Order Date: 03/30/25Order Info: [id number] - CMPOrder Info: [id number] - LIPIDadd one 06/09/24 Performed By: #### L 500.4050, L100.0100, L501.9985, L500.4100 ####[facility] [address] [place], [address] Albumin/Globulin [Mass ratio] 1.8 {ratio} Normal 0.9-2.4 [facility] Comment on above: Order Comment: Order Date: 03/30/25Order Info: [id number] - CMPOrder Info: [id number] - LIPIDadd one 06/09/24 Performed By: #### L 500.4050, L100.0100, L501.9985, L500.4100 ####[facility] [address] [place], [address] ALK PHOS 76 U/L Normal 35-104 [facility] Comment on above: Order Comment: Order Date: 03/30/25Order Info: [id number] - CMPOrder Info: [id number] - LIPIDadd one 06/09/24 Performed By: #### L 500.4050, L100.0100, L501.9985, L500.4100 ####[facility] [address] [place], [address] ALT [Catalytic activity/Vol] 26 U/L Normal <=34 [facility] Comment on above: Order Comment: Order Date: 03/30/25Order Info: [id number] - CMPOrder Info: [id number] - LIPIDadd one 06/09/24 Performed By: #### L 500.4050, L100.0100, L501.9985, L500.4100 ####[facility] [address] [place], [address] AST [Catalytic activity/Vol] 26 U/L Normal <=31 [facility] Comment on above: Order Comment: Order Date: 03/30/25Order Info: [id number] - CMPOrder Info: [id number] - LIPIDadd one 06/09/24 Performed By: #### L 500.4050, L100.0100, L501.9985, L500.4100 ####[facility] [address] [place], [address] BUN/CRE 21.4 RATIO High 10-20 [facility] Comment on above: Order Comment: Order Date: 03/30/25Order Info: [id number] - CMPOrder Info: [id number] - LIPIDadd one 06/09/24 Performed By: #### L 500.4050, L100.0100, L501.9985, L500.4100 ####[facility] [address] [place], [address] Calcium [Mass/Vol] 9.7 mg/dL Normal 7.6-11.0 [facility] Comment on above: Order Comment: Order Date: 03/30/25Order Info: [id number] - CMPOrder Info: [id number] - LIPIDadd one 06/09/24 Performed By: #### L 500.4050, L100.0100, L501.9985, L500.4100 ####[facility] [address] [place], [address] Chloride [Moles/Vol] 105 mmol/L Normal 98-108 [facility] Comment on above: Order Comment: Order Date: 03/30/25Order Info: [id number] - CMPOrder Info: [id number] - LIPIDadd one 06/09/24 Performed By: #### L 500.4050, L100.0100, L501.9985, L500.4100 ####[facility] [address] [facility] [place], [address] CO2 [Moles/Vol] 24.3 mmol/L Normal 21.0-32.0 [facility] Comment on above: Order Comment: Order Date: 03/30/25Order Info: [id number] - CMPOrder Info: [id number] - LIPIDadd one 06/09/24 Performed By: #### L 500.4050, L100.0100, L501.9985, L500.4100 ####[facility] [address] [facility] [place], [address] Creatinine [Mass/Vol] 0.67 mg/dL Low 0.70-1.20 [facility] Comment on above: Order Comment: Order Date: 03/30/25Order Info: [id number] - CMPOrder Info: [id number] - LIPIDadd one 06/09/24 Performed By: #### L 500.4050, L100.0100, L501.9985, L500.4100 ####[facility] [address] [place], [address] GAP 10 Normal 5-15 [facility] Comment on above: Order Comment: Order Date: 03/30/25Order Info: [id number] - CMPOrder Info: [id number] - LIPIDadd one 06/09/24 Performed By: #### L 500.4050, L100.0100, L501.9985, L500.4100 ####[facility] [address] [place], [address] GFR/1.73 sq M.predicted among non-blacks MDRD (S/P/Bld) [Vol rate/Area] 95 mL/min/{1.73_m2} Normal >60 [facility] Comment on above: Order Comment: Order Date: 03/30/25Order Info: [id number] - CMPOrder Info: [id number] - LIPIDadd one 06/09/24 Result Comment: mL/m in/1.73m2 CKD-EPI Creatinine Equation (2020) Performed By: #### L 500.4050, L100.0100, L501.9985, L500.4100 ####[facility] [address] [place], [address] Globulin (S) [Mass/Vol] 2.3 g/dL Normal 2.2-4.2 [facility] Comment on above: Order Comment: Order Date: 03/30/25Order Info: [id number] - CMPOrder Info: [id number] - LIPIDadd one 06/09/24 Performed By: #### L 500.4050, L100.0100, L501.9985, L500.4100 ####[facility] [address] [place], [address] Glucose [Mass/Vol] 113 mg/dL High 70-99 [facility] Comment on above: Order Comment: Order Date: 03/30/25Order Info: [id number] - CMPOrder Info: [id number] - LIPIDadd one 06/09/24 Performed By: #### L 500.4050, L100.0100, L501.9985, L500.4100 ####[facility] [address] [place], [address] Potassium [Moles/Vol] 4.6 mmol/L Normal 3.3-5.1 [facility] Comment on above: Order Comment: Order Date: 03/30/25Order Info: [id number] - CMPOrder Info: [id number] - LIPIDadd one 06/09/24 Performed By: #### L 500.4050, L100.0100, L501.9985, L500.4100 ####[facility] [address] [place], [address] Sodium [Moles/Vol] 140 mmol/L Normal 133-145 [facility] Comment on above: Order Comment: Order Date: 03/30/25Order Info: [id number] - CMPOrder Info: [id number] - LIPIDadd one 06/09/24 Performed By: #### L 500.4050, L100.0100, L501.9985, L500.4100 ####[facility] [address] [place], [address] T BILI < 0.15 Normal 0.00-1.30 [facility] Comment on above: Order Comment: Order Date: 03/30/25Order Info: [id number] - CMPOrder Info: [id number] - LIPIDadd one 06/09/24 Performed By: #### L 500.4050, L100.0100, L501.9985, L500.4100 ####[facility] [address] [place], [address] T PROT 6.4 g/dL Normal 5.9-8.4 [facility] Comment on above: Order Comment: Order Date: 03/30/25Order Info: [id number] - CMPOrder Info: [id number] - LIPIDadd one 06/09/24 Performed By: #### L 500.4050, L100.0100, L501.9985, L500.4100 ####[facility] [address] [place], [address] Urea nitrogen [Mass/Vol] 14 mg/dL Normal 4-19 [facility] Comment on above: Order Comment: Order Date: 03/30/25Order Info: [id number] - CMPOrder Info: [id number] - LIPIDadd one 06/09/24 Performed By: #### L 500.4050, L100.0100, L501.9985, L500.4100 ####[facility] [address] [place], [address] Hemoglobin A1con 03-30-2025 HbA1c (Bld) [Mass fraction] 6.2 % High <=5.6 [facility] Comment on above: Order Comment: Order Date: 03/30/25Order Info: [id number] - A1C Result Comment: Norm al < 5.7 % Prediabetic 5.7 - 6.4 % Diabetic >or= 6.5 % Please note range changes. Performed By: #### L 500.4050, L100.0100, L501.9985, L500.4100 ####[facility] [address] [place], [address] Lipid Profileon 03-30-2025 CHOL:HDL 3.45 Normal [facility] Comment on above: Order Comment: Order Date: 03/30/25Order Info: [id number] - CMPOrder Info: [id number] - LIPID Performed By: #### L 500.4050, L100.0100, L501.9985, L500.4100 ####[facility] [address] [place], [address] Cholesterol [Mass/Vol] 178 mg/dL Normal <=200 [facility] Comment on above: Order Comment: Order Date: 03/30/25Order Info: [id number] - CMPOrder Info: [id number] - LIPID Result Comment: Chol esterol level, Desirable <200 mg/dLBorderline high cholesterol 200-239 mg/dLHigh cholesterol >=240 mg/dLRecommendations of the NCEP Adult Treatment Panel for thefollowing risk-cutoff thresholds for the [place] Americanpopulation. Performed By: #### L 500.4050, L100.0100, L501.9985, L500.4100 ####[facility] [address] [place], [address] Cholesterol in HDL [Mass/Vol] 52 mg/dL Normal [facility] Comment on above: Order Comment: Order Date: 03/30/25Order Info: [id number] - CMPOrder Info: [id number] - LIPID Result Comment: Naa onal Cholesterol Education Program (NCEP) guidelines:<40 mg/dL: Low HDL-cholesterol (major risk factor for CHD)>= 60 mg/dL: High HDL-cholesterol (negative risk factor forCHD)HDL-cholesterol is affected by a number of factors, e.g.smoking, exercise, hormones, sex and age. Performed By: #### L 500.4050, L100.0100, L501.9985, L500.4100 ####[facility] [address] [place], [address] Cholesterol in LDL [Mass/Vol] 106 mg/dL Normal [facility] Comment on above: Order Comment: Order Date: 03/30/25Order Info: [id number] - CMPOrder Info: [id number] - LIPID Result Comment: Bord wpqoxz=177-711 mg/dL Higher Eneu=171 mg/dL or greater Performed By: #### L 500.4050, L100.0100, L501.9985, L500.4100 ####[facility] [address] [place], [address] Cholesterol in VLDL [Mass/Vol] 20 mg/dL Normal 5-40 [facility] Comment on above: Order Comment: Order Date: 03/30/25Order Info: [id number] - CMPOrder Info: [id number] - LIPID Performed By: #### L 500.4050, L100.0100, L501.9985, L500.4100 ####[facility] [address] [place], [address] Triglyceride [Mass/Vol] 101 mg/dL Normal [facility] Comment on above: Order Comment: Order Date: 03/30/25Order Info: [id number] - CMPOrder Info: [id number] - LIPID Result Comment: The drugs N-Acetylcysteine and Metamizole may falselydepress this assay.Normal range: <150 mg/dLBorderline High: 150-199 mg/dLHigh: 200-499 mg/dLVery High: >500 mg/dL Performed By: #### L 500.4050, L100.0100, L501.9985, L500.4100 ####[facility] [address] [place], [address] Microalb:Creat Ratio,Random URon 03-30-2025 Creatinine [Mass/Vol] 128.00 mg/dL Normal 28.00- 217.0 0 [facility] Comment on above: Performed By: #### L 503.6550, L506.1001, L503.0106, L502.0250, L503.6030 ####[facility] [address] [place], [address] MALB:CREAT UNABLE TO CALCULATE Normal [facility] Comment on above: Performed By: #### L 503.6550, L506.1001, L503.0106, L502.0250, L503.6030 ####[facility] [address] [place], [address] MICROALBUMIN,UR < 12.0 Normal NO RANGE EST. [facility] Comment on above: Performed By: #### L 503.6550, L506.1001, L503.0106, L502.0250, L503.6030 ####[facility] [address] [place], [address] Vitamin D,25 Hydroxyon 03-30 Vitamin D 25-OH 38.5 ng/mL Normal 30-100 [facility] Comment on above: Order Comment: Order Date: 03/30/25Order Info: [id number] - CMPOrder Info: [id number] - LIPID Result Comment: Daria min D StatusDeficiency: <20 ng/mL (50nmol/L)Insufficiency: 20-30 ng/mL (50-75 nmol/L)Sufficiency: 30-100 ng/mL (75-250 nmol/L)Toxicity: >100 ng/mL (>250 nmol/L) Performed By: #### L 503.6550, L506.1001, L503.0106, L502.0250, L503.6030 ####[facility] [address] [place], [address] Radiation Oncology Visiton 0 - Radiation Oncology Visit Normal [facility] Surgery Visit Reporton 02-08 Surgery Visit Report Normal [facility] CBC W/Diff, Automatedon - Absolute Lymph 1.33 X10 3/uL Normal 0.83-4.51 [facility] Comment on above: Performed By: #### L 500.4050, L100.0100 ####[facility] [address] [place], [address] Absolute Neut 5.5 X10 3/uL Normal 2.0-7.7 [facility] Comment on above: Performed By: #### L 500.4050, L100.0100 ####[facility] [address] [place], [address] Basophils/100 WBC (Bld) 0.7 % Normal 0-1 [facility] Comment on above: Performed By: #### L 500.4050, L100.0100 ####[facility] [address] [place], [address] Eosinophils/100 WBC (Bld) 2.0 % Normal 0-5 [facility] Comment on above: Performed By: #### L 500.4050, L100.0100 ####[facility] [address] [place], [address] Erythrocyte distribution width (RBC) [Ratio] 15.3 % High 11.6-14.6 [facility] Comment on above: Performed By: #### L 500.4050, L100.0100 ####[facility] [address] [place], [address] Hematocrit (Bld) [Volume fraction] 36.8 % Low 37-47 [facility] Comment on above: Performed By: #### L 500.4050, L100.0100 ####[facility] [address] [place], [address] Hemoglobin (Bld) [Mass/Vol] 12.2 g/dL Normal 12.0-15.0 [facility] Comment on above: Performed By: #### L 500.4050, L100.0100 ####[facility] [address] [place], [address] IG% 0.300 Normal 0.0-0.9 [facility] Comment on above: Result Comment: IG% - Immature Granulocytes (promyelocytes, myelocytes andmetamyelocytes) > 1% indicates that a LEFT SHIFT is Present. Performed By: #### L 500.4050, L100.0100 ####[facility] [address] [place], [address] Lymphocytes/100 WBC (Bld) 17.8 % Low 19-41 [facility] Comment on above: Performed By: #### L 500.4050, L100.0100 ####[facility] [address] [place], [address] MCH (RBC) [Entitic mass] 29.3 pg Normal 27.0-32.0 [facility] Comment on above: Performed By: #### L 500.4050, L100.0100 ####[facility] [address] [place], [address] MCHC (RBC) [Mass/Vol] 33.2 g/dL Normal 32-36 [facility] Comment on above: Performed By: #### L 500.4050, L100.0100 ####[facility] [address] [place], [address] MCV (RBC) [Entitic vol] 88.5 fL Normal 81-99 [facility] Comment on above: Performed By: #### L 500.4050, L100.0100 ####[facility] [address] [place], [address] Monocytes/100 WBC (Bld) 6.0 % Normal 0-10 [facility] Comment on above: Performed By: #### L 500.4050, L100.0100 ####[facility] [address] [place], [address] Neutrophils/100 WBC (Bld) 73.2 % High 47-70 [facility] Comment on above: Performed By: #### L 500.4050, L100.0100 ####[facility] [address] [place], [address] Nucleated RBC (Bld) [#/Vol] 0 10*3/uL Normal 0-5 [facility] Comment on above: Performed By: #### L 500.4050, L100.0100 ####[facility] [address] [place], [address] Platelet mean volume (Bld) [Entitic vol] 9.7 fL Normal 6.2-12.0 [facility] Comment on above: Performed By: #### L 500.4050, L100.0100 ####[facility] [address] [place], [address] Platelets (Bld) [#/Vol] 327 10*3/uL Normal 150-450 [facility] Comment on above: Performed By: #### L 500.4050, L100.0100 ####[facility] [address] [place], [address] RBC (Bld) [#/Vol] 4.16 10*6/uL Low 4.2-5.4 [facility] Comment on above: Performed By: #### L 500.4050, L100.0100 ####[facility] [address] [place], [address] RDW SD 50.0 fl High 35.1-43.9 [facility] Comment on above: Performed By: #### L 500.4050, L100.0100 ####[facility] [address] [place], [address] WBC (Bld) [#/Vol] 7.5 10*3/uL Normal 4.4-11.0 [facility] Comment on above: Performed By: #### L 500.4050, L100.0100 ####[facility] [address] [place], [address] Comprehensive Metabolic Prof [facility] 12-30-2024 Albumin [Mass/Vol] 4.2 g/dL Normal 3.4-4.8 [facility] Comment on above: Performed By: #### L 500.4050, L100.0100 ####[facility] [address] [place], [address] Albumin/Globulin [Mass ratio] 1.8 {ratio} Normal 0.9-2.4 [facility] Comment on above: Performed By: #### L 500.4050, L100.0100 ####[facility] [address] [place], [address] ALK PHOS 71 U/L Normal 35-104 [facility] Comment on above: Performed By: #### L 500.4050, L100.0100 ####[facility] [address] [place], [address] ALT [Catalytic activity/Vol] 22 U/L Normal <=34 [facility] Comment on above: Performed By: #### L 500.4050, L100.0100 ####[facility] [address] [place], [address] AST [Catalytic activity/Vol] 23 U/L Normal <=31 [facility] Comment on above: Performed By: #### L 500.4050, L100.0100 ####[facility] [address] [place], [address] Bilirubin [Mass/Vol] 0.21 mg/dL Normal 0.00-1.30 [facility] Comment on above: Performed By: #### L 500.4050, L100.0100 ####[facility] [address] [place], [address] BUN/CRE 19.7 RATIO Normal 10-20 [facility] Comment on above: Performed By: #### L 500.4050, L100.0100 ####[facility] [address] [place], [address] Calcium [Mass/Vol] 9.7 mg/dL Normal 7.6-11.0 [facility] Comment on above: Performed By: #### L 500.4050, L100.0100 ####[facility] [address] [place], [address] Chloride [Moles/Vol] 104 mmol/L Normal 98-108 [facility] Comment on above: Performed By: #### L 500.4050, L100.0100 ####[facility] [address] [place], [address] CO2 [Moles/Vol] 23.4 mmol/L Normal 21.0-32.0 [facility] Comment on above: Performed By: #### L 500.4050, L100.0100 ####[facility] [address] [place], [address] Creatinine [Mass/Vol] 0.59 mg/dL Low 0.70-1.20 [facility] Comment on above: Performed By: #### L 500.4050, L100.0100 ####[facility] [address] [place], [address] ECRCL 58.62 ml/min Normal 50-250 [facility] Comment on above: Performed By: #### L 500.4050, L100.0100 ####[facility] [address] [place], [address] GAP 11 Normal 5-15 [facility] Comment on above: Performed By: #### L 500.4050, L100.0100 ####[facility] [address] [place], [address] GFR/1.73 sq M.predicted among non-blacks MDRD (S/P/Bld) [Vol rate/Area] 98 mL/min/{1.73_m2} Normal >60 [facility] Comment on above: Result Comment: mL/m in/1.73m2 CKD-EPI Creatinine Equation (2020) Performed By: #### L 500.4050, L100.0100 ####[facility] [address] [place], [address] Globulin (S) [Mass/Vol] 2.4 g/dL Normal 2.2-4.2 [facility] Comment on above: Performed By: #### L 500.4050, L100.0100 ####[facility] [address] [place], [address] Glucose [Mass/Vol] 107 mg/dL High 70-99 [facility] Comment on above: Performed By: #### L 500.4050, L100.0100 ####[facility] [address] [place], [address] Potassium [Moles/Vol] 3.9 mmol/L Normal 3.3-5.1 [facility] Comment on above: Performed By: #### L 500.4050, L100.0100 ####[facility] [address] [place], [address] Sodium [Moles/Vol] 139 mmol/L Normal 133-145 [facility] Comment on above: Performed By: #### L 500.4050, L100.0100 ####[facility] [address] [place], [address] T PROT 6.6 g/dL Normal 5.9-8.4 [facility] Comment on above: Performed By: #### L 500.4050, L100.0100 ####[facility] [address] [place], [address] Urea nitrogen [Mass/Vol] 12 mg/dL Normal 4-19 [facility] Comment on above: Performed By: #### L 500.4050, L100.0100 ####[facility] [address] [place], [address] Oncology Visit Reporton - Oncology Visit Report Normal [facility] Office Visit Reporton 2024 Office Visit Report Normal [facility] Radiation Oncology Visiton 0 10-26-2024 Radiation Oncology Visit Normal [facility] Pulmonary Visit Reporton Pulmonary Visit Report Normal [facility] Ferritinon 10-08-2024 Ferritin [Mass/Vol] 10 ng/mL Normal 8-252 [facility] Comment on above: Order Comment: GRACIA Gomez ADD A1C B12 WAQAR IBC TO BLOOD DRAWN 10/07/24Order Date: 10/07/24Order Info: 0786-1 - CMPOrder Info: [id number] - LIPIDOrder Info: - MGOrder Info: [id number] - TSH Performed By: #### L 503.6030, L400.0001, L503.0105, L501.9985, L503.6550 ####[facility] [address] [place], [address] Hemoglobin A1con 10-08-2024 HbA1c (Bld) [Mass fraction] 5.8 % High 3.8-5.6 [facility] Comment on above: Order Comment: GRACIA Gomez ADD A1C B12 WAQAR IBC TO BLOOD DRAWN 10/07/24 Result Comment: Norm al < 5.7 % Prediabetic 5.7 - 6.4 % Diabetic >or= 6.5 % Please note range changes. Performed By: #### L 503.6030, L400.0001, L503.0105, L501.9985, L503.6550 ####[facility] [address] [place], [place], [id number] Iron+Iron Binding Capacityon 10-08-2024 Iron [Mass/Vol] 126 ug/dL Normal 50-170 [facility] Comment on above: Order Comment: GRACIA Gomez ADD A1C B12 WAQAR IBC TO BLOOD DRAWN 10/07/24Order Date: 10/07/24Order Info: 07-1 - CMPOrder Info: [id number] - LIPIDOrder Info: - MGOrder Info: 6-3 - TSH Performed By: #### L 503.6030, L400.0001, L503.0105, L501.9985, L503.6550 ####[facility] [address] [place], [place], [id number] IRON SATURATION 31.7 Normal 15.0-55.0 [facility] Comment on above: Order Comment: GRACIA Gomez ADD A1C B12 WAQAR IBC TO BLOOD DRAWN 10/07/24Order Date: 10/07/24Order Info: 785- - CMPOrder Info: [id number] - LIPIDOrder Info: - MGOrder Info: [id number] - TSH Performed By: #### L 503.6030, L400.0001, L503.0105, L501.9985, L503.6550 ####[facility] [address] [place], [address] TIBC 398 ug/dL Normal 250-450 [facility] Comment on above: Order Comment: GRACIA Gomez ADD A1C B12 WAQAR IBC TO BLOOD DRAWN 10/07/24Order Date: 10/07/24Order Info: [id number] - CMPOrder Info: - LIPIDOrder Info: - MGOrder Info: [id number] - TSH Performed By: #### L 503.6030, L400.0001, L503.0105, L501.9985, L503.6550 ####[facility] [address] [place], [address] Vitamin B12on 10-08-2024 Cobalamin (Vitamin B12) [Mass/Vol] 433 pg/mL Normal 211-911 [facility] Comment on above: Order Comment: JINURIEL Gomez ADD A1C B12 WAQAR IBC TO BLOOD DRAWN 10/07/24Order Date: 10/07/24Order Info: [id number] - VITD25 Performed By: #### L 503.6030, L400.0001, L503.0105, L501.9985, L503.6550 ####[facility] [address] [place], [address] CBC W/Diff, Automatedon 09-19 Absolute Lymph 1.24 X10 3/uL Normal 0.83-4.51 [facility] Comment on above: Order Comment: Order Date: 10/07/24Order Info: [id number] - CBCD Performed By: #### L 500.4050, L100.0100, L506.1000, L501.9520, L501.5200, L500.4100 ####[facility] [address] [place], [address] Absolute Neut 4.8 X10 3/uL Normal 2.0-7.7 [facility] Comment on above: Order Comment: Order Date: 10/07/24Order Info: 018- - CBCD Performed By: #### L 500.4050, L100.0100, L506.1000, L501.9520, L501.5200, L500.4100 ####[facility] [address] [place], [address] Basophils/100 WBC (Bld) 0.9 % Normal 0-1 [facility] Comment on above: Order Comment: Order Date: 10/07/24Order Info: 018- - CBCD Performed By: #### L 500.4050, L100.0100, L506.1000, L501.9520, L501.5200, L500.4100 ####[facility] [address] [place], [address] Eosinophils/100 WBC (Bld) 1.5 % Normal 0-5 [facility] Comment on above: Order Comment: Order Date: 10/07/24Order Info: 018- - CBCD Performed By: #### L 500.4050, L100.0100, L506.1000, L501.9520, L501.5200, L500.4100 ####[facility] [address] [place], [address] Erythrocyte distribution width (RBC) [Ratio] 16.5 % High 11.6-14.6 [facility] Comment on above: Order Comment: Order Date: 10/07/24Order Info: 018- - CBCD Performed By: #### L 500.4050, L100.0100, L506.1000, L501.9520, L501.5200, L500.4100 ####[facility] [address] [place], [address] Hematocrit (Bld) [Volume fraction] 36.9 % Low 37-47 [facility] Comment on above: Order Comment: Order Date: 10/07/24Order Info: 0184-1 - CBCD Performed By: #### L 500.4050, L100.0100, L506.1000, L501.9520, L501.5200, L500.4100 ####[facility] [address] [place], [address] Hemoglobin (Bld) [Mass/Vol] 11.7 g/dL Low 12.0-15.0 [facility] Comment on above: Order Comment: Order Date: 10/07/24Order Info: 0184-1 - CBCD Performed By: #### L 500.4050, L100.0100, L506.1000, L501.9520, L501.5200, L500.4100 ####[facility] [address] [place], [address] IG% 0.400 Normal 0.0-0.9 [facility] Comment on above: Order Comment: Order Date: 10/07/24Order Info: 0184-1 - CBCD Result Comment: IG% - Immature Granulocytes (promyelocytes, myelocytes andmetamyelocytes) > 1% indicates that a LEFT SHIFT is Present. Performed By: #### L 500.4050, L100.0100, L506.1000, L501.9520, L501.5200, L500.4100 ####[facility] [address] [place], [address] Lymphocytes/100 WBC (Bld) 18.6 % Low 19-41 [facility] Comment on above: Order Comment: Order Date: 10/07/24Order Info: 0184-1 - CBCD Performed By: #### L 500.4050, L100.0100, L506.1000, L501.9520, L501.5200, L500.4100 ####[facility] [address] [place], [address] MCH (RBC) [Entitic mass] 28.2 pg Normal 27.0-32.0 [facility] Comment on above: Order Comment: Order Date: 10/07/24Order Info: 018-1 - CBCD Performed By: #### L 500.4050, L100.0100, L506.1000, L501.9520, L501.5200, L500.4100 ####[facility] [address] [place], [address] MCHC (RBC) [Mass/Vol] 31.7 g/dL Low 32-36 [facility] Comment on above: Order Comment: Order Date: 10/07/24Order Info: 018- - CBCD Performed By: #### L 500.4050, L100.0100, L506.1000, L501.9520, L501.5200, L500.4100 ####[facility] [address] [place], [address] MCV (RBC) [Entitic vol] 88.9 fL Normal 81-99 [facility] Comment on above: Order Comment: Order Date: 10/07/24Order Info: 018- - CBCD Performed By: #### L 500.4050, L100.0100, L506.1000, L501.9520, L501.5200, L500.4100 ####[facility] [address] [place], [address] Monocytes/100 WBC (Bld) 7.0 % Normal 0-10 [facility] Comment on above: Order Comment: Order Date: 10/07/24Order Info: 0184-1 - CBCD Performed By: #### L 500.4050, L100.0100, L506.1000, L501.9520, L501.5200, L500.4100 ####[facility] [address] [place], [address] Neutrophils/100 WBC (Bld) 71.6 % High 47-70 [facility] Comment on above: Order Comment: Order Date: 10/07/24Order Info: 0184-1 - CBCD Performed By: #### L 500.4050, L100.0100, L506.1000, L501.9520, L501.5200, L500.4100 ####[facility] [address] [place], [address] Nucleated RBC (Bld) [#/Vol] 0 10*3/uL Normal 0-5 [facility] Comment on above: Order Comment: Order Date: 10/07/24Order Info: 018- - CBCD Performed By: #### L 500.4050, L100.0100, L506.1000, L501.9520, L501.5200, L500.4100 ####[facility] [address] [place], [address] Platelet mean volume (Bld) [Entitic vol] 10.0 fL Normal 6.2-12.0 [facility] Comment on above: Order Comment: Order Date: 10/07/24Order Info: 018-1 - CBCD Performed By: #### L 500.4050, L100.0100, L506.1000, L501.9520, L501.5200, L500.4100 ####[facility] [address] [place], [address] Platelets (Bld) [#/Vol] 320 10*3/uL Normal 150-450 [facility] Comment on above: Order Comment: Order Date: 10/07/24Order Info: [id number] - CBCD Performed By: #### L 500.4050, L100.0100, L506.1000, L501.9520, L501.5200, L500.4100 ####[facility] [address] [place], [address] RBC (Bld) [#/Vol] 4.15 10*6/uL Low 4.2-5.4 [facility] Comment on above: Order Comment: Order Date: 10/07/24Order Info: 018-1 - CBCD Performed By: #### L 500.4050, L100.0100, L506.1000, L501.9520, L501.5200, L500.4100 ####[facility] [address] [place], [address] RDW SD 53.6 fl High 35.1-43.9 [facility] Comment on above: Order Comment: Order Date: 10/07/24Order Info: 018-1 - CBCD Performed By: #### L 500.4050, L100.0100, L506.1000, L501.9520, L501.5200, L500.4100 ####[facility] [address] [place], [address] WBC (Bld) [#/Vol] 6.7 10*3/uL Normal 4.4-11.0 [facility] Comment on above: Order Comment: Order Date: 10/07/24Order Info: 018- - CBCD Performed By: #### L 500.4050, L100.0100, L506.1000, L501.9520, L501.5200, L500.4100 ####[facility] [address] [place], [address] Comprehensive Metabolic Prof ilon 10-07-2024 Albumin [Mass/Vol] 3.7 g/dL Normal 3.2-5.0 [facility] Comment on above: Order Comment: Order Date: 10/07/24Order Info: [id number] - CMPOrder Info: [id number] - LIPIDOrder Info: [id number] - MGOrder Info: [id number] - TSH Performed By: #### L 500.4050, L100.0100, L506.1000, L501.9520, L501.5200, L500.4100 ####[facility] [address] [place], [address] Albumin/Globulin [Mass ratio] 1.3 {ratio} Normal 0.9-2.4 [facility] Comment on above: Order Comment: Order Date: 10/07/24Order Info: 86-1 - CMPOrder Info: [id number] - LIPIDOrder Info: [id number] - MGOrder Info: [id number] - TSH Performed By: #### L 500.4050, L100.0100, L506.1000, L501.9520, L501.5200, L500.4100 ####[facility] [address] [place], [address] ALK P 72 U/L Normal 45-117 [facility] Comment on above: Order Comment: Order Date: 10/07/24Order Info: 86-1 - CMPOrder Info: [id number] - LIPIDOrder Info: [id number] - MGOrder Info: [id number] - TSH Performed By: #### L 500.4050, L100.0100, L506.1000, L501.9520, L501.5200, L500.4100 ####[facility] [address] [place], [address] ALT [Catalytic activity/Vol] 23 U/L Normal 13-56 [facility] Comment on above: Order Comment: Order Date: 10/07/24Order Info: 86-1 - CMPOrder Info: [id number] - LIPIDOrder Info: [id number] - MGOrder Info: [id number] - TSH Performed By: #### L 500.4050, L100.0100, L506.1000, L501.9520, L501.5200, L500.4100 ####[facility] [address] [place], [address] AST [Catalytic activity/Vol] 15 U/L Normal 15-37 [facility] Comment on above: Order Comment: Order Date: 10/07/24Order Info: 86-1 - CMPOrder Info: [id number] - LIPIDOrder Info: [id number] - MGOrder Info: [id number] - TSH Performed By: #### L 500.4050, L100.0100, L506.1000, L501.9520, L501.5200, L500.4100 ####[facility] [address] [place], [address] Bilirubin [Mass/Vol] 0.30 mg/dL Normal 0.20-1.00 [facility] Comment on above: Order Comment: Order Date: 10/07/24Order Info: 785- - CMPOrder Info: [id number] - LIPIDOrder Info: [id number] - MGOrder Info: 3 - TSH Result Comment: For patients on eltrombopag therapy, use of Dimension [place] TBIL is not recommended. Performed By: #### L 500.4050, L100.0100, L506.1000, L501.9520, L501.5200, L500.4100 ####[facility] [address] [place], [place], [id number] BUN/CRE 23.5 RATIO High 10-20 [facility] Comment on above: Order Comment: Order Date: 10/07/24Order Info: 785- - CMPOrder Info: [id number] - LIPIDOrder Info: [id number] - MGOrder Info: 3 - TSH Performed By: #### L 500.4050, L100.0100, L506.1000, L501.9520, L501.5200, L500.4100 ####[facility] [address] [place], [address] CA,Total 9.6 mg/dL Normal 8.5-10.1 [facility] Comment on above: Order Comment: Order Date: 10/07/24Order Info: 785- - CMPOrder Info: [id number] - LIPIDOrder Info: [id number] - MGOrder Info: 3 - TSH Performed By: #### L 500.4050, L100.0100, L506.1000, L501.9520, L501.5200, L500.4100 ####[facility] [address] [place], [address] Chloride [Moles/Vol] 105 mmol/L Normal 98-107 [facility] Comment on above: Order Comment: Order Date: 10/07/24Order Info: [id number] - CMPOrder Info: [id number] - LIPIDOrder Info: [id number] - MGOrder Info: [id number] - TSH Performed By: #### L 500.4050, L100.0100, L506.1000, L501.9520, L501.5200, L500.4100 ####[facility] [address] [place], [address] CO2 [Moles/Vol] 27.0 mmol/L Normal 21.0-32.0 [facility] Comment on above: Order Comment: Order Date: 10/07/24Order Info: 785-1 - CMPOrder Info: [id number] - LIPIDOrder Info: [id number] - MGOrder Info: [id number] - TSH Performed By: #### L 500.4050, L100.0100, L506.1000, L501.9520, L501.5200, L500.4100 ####[facility] [address] [place], [address] Creatinine [Mass/Vol] 0.64 mg/dL Normal 0.55-1.02 [facility] Comment on above: Order Comment: Order Date: 10/07/24Order Info: 86-1 - CMPOrder Info: [id number] - LIPIDOrder Info: [id number] - MGOrder Info: [id number] - TSH Result Comment: The validity of the calculated GFR GFRAA in patients over70 years has not been determined. Clinical correlation isessential. Performed By: #### L 500.4050, L100.0100, L506.1000, L501.9520, L501.5200, L500.4100 ####[facility] [address] [place], [address] EST GFR - AA 119 mL/min Normal >60 [facility] Comment on above: Order Comment: Order Date: 10/07/24Order Info: 07-1 - CMPOrder Info: [id number] - LIPIDOrder Info: [id number] - MGOrder Info: [id number] - TSH Result Comment: Afri can Burmese GFR Calc Performed By: #### L 500.4050, L100.0100, L506.1000, L501.9520, L501.5200, L500.4100 ####[facility] [address] [place], [address] GAP 6 Normal 5-15 [facility] Comment on above: Order Comment: Order Date: 10/07/24Order Info: 785- - CMPOrder Info: [id number] - LIPIDOrder Info: [id number] - MGOrder Info: [id number] - TSH Performed By: #### L 500.4050, L100.0100, L506.1000, L501.9520, L501.5200, L500.4100 ####[facility] [address] [place], [address] GFR/1.73 sq M.predicted among non-blacks MDRD (S/P/Bld) [Vol rate/Area] 99 mL/min/{1.73_m2} Normal >60 [facility] Comment on above: Order Comment: Order Date: 10/07/24Order Info: 0786 - CMPOrder Info: [id number] - LIPIDOrder Info: [id number] - MGOrder Info: [id number] - TSH Result Comment: Non- GFR Calc Performed By: #### L 500.4050, L100.0100, L506.1000, L501.9520, L501.5200, L500.4100 ####[facility] [address] [place], [address] Globulin (S) [Mass/Vol] 2.8 g/dL Normal 2.2-4.2 [facility] Comment on above: Order Comment: Order Date: 10/07/24Order Info: [id number] - CMPOrder Info: [id number] - LIPIDOrder Info: [id number] - MGOrder Info: [id number] - TSH Performed By: #### L 500.4050, L100.0100, L506.1000, L501.9520, L501.5200, L500.4100 ####[facility] [address] [place], [address] Glucose [Mass/Vol] 104 mg/dL Normal 74-106 [facility] Comment on above: Order Comment: Order Date: 10/07/24Order Info: 785-1 - CMPOrder Info: [id number] - LIPIDOrder Info: - MGOrder Info: [id number] - TSH Result Comment: Fast ing Glucose result from 100 to 125 mg/dLsuggests IMPAIRED HOMEOSTASIS per A.D.A. criteria. Performed By: #### L 500.4050, L100.0100, L506.1000, L501.9520, L501.5200, L500.4100 ####[facility] [address] [place], [address] Potassium [Moles/Vol] 4.1 mmol/L Normal 3.5-5.1 [facility] Comment on above: Order Comment: Order Date: 10/07/24Order Info: [id number] - CMPOrder Info: [id number] - LIPIDOrder Info: - MGOrder Info: [id number] - TSH Performed By: #### L 500.4050, L100.0100, L506.1000, L501.9520, L501.5200, L500.4100 ####[facility] [address] [place], [address] Sodium [Moles/Vol] 138 mmol/L Normal 136-145 [facility] Comment on above: Order Comment: Order Date: 10/07/24Order Info: [id number] - CMPOrder Info: [id number] - LIPIDOrder Info: - MGOrder Info: [id number] - TSH Performed By: #### L 500.4050, L100.0100, L506.1000, L501.9520, L501.5200, L500.4100 ####[facility] [address] [place], [place], [address] T PROT 6.5 g/dL Normal 6.4-8.2 [facility] Comment on above: Order Comment: Order Date: 10/07/24Order Info: [id number] - CMPOrder Info: [id number] - LIPIDOrder Info: [id number] - MGOrder Info: [id number] - TSH Performed By: #### L 500.4050, L100.0100, L506.1000, L501.9520, L501.5200, L500.4100 ####[facility] [address] [place], [place], [address] Urea nitrogen [Mass/Vol] 15 mg/dL Normal 7-18 [facility] Comment on above: Order Comment: Order Date: 10/07/24Order Info: 86-1 - CMPOrder Info: [id number] - LIPIDOrder Info: [id number] - MGOrder Info: [id number] - TSH Performed By: #### L 500.4050, L100.0100, L506.1000, L501.9520, L501.5200, L500.4100 ####[facility] [address] [place], [place], [address] Lipid Profileon 10-07-2024 Cholesterol [Mass/Vol] 178 mg/dL Normal 200 [facility] Comment on above: Order Comment: Order Date: 10/07/24Order Info: [id number] - CMPOrder Info: [id number] - LIPIDOrder Info: [id number] - MGOrder Info: [id number] - TSH Result Comment: <200 mg/dL Desirable 200-240 mg/dL Borderline >240 mg/dL High Risk Performed By: #### L 500.4050, L100.0100, L506.1000, L501.9520, L501.5200, L500.4100 ####[facility] [address] [place], [address] Cholesterol in HDL [Mass/Vol] 58 mg/dL Normal [facility] Comment on above: Order Comment: Order Date: 10/07/24Order Info: 86-1 - CMPOrder Info: [id number] - LIPIDOrder Info: [id number] - MGOrder Info: [id number] - TSH Result Comment: The drugs N-Acetylcysteine and Metamizole may falselydepress this assay. Reference Range HDL <40 mg/dL Low HDL Cholesterol HDL >or= 60 mg/dL High HDL Cholesterol Performed By: #### L 500.4050, L100.0100, L506.1000, L501.9520, L501.5200, L500.4100 ####[facility] [address] [place], [address] Cholesterol in LDL [Mass/Vol] 93 mg/dL Normal 0-130 [facility] Comment on above: Order Comment: Order Date: 10/07/24Order Info: [id number] - CMPOrder Info: - LIPIDOrder Info: [id number] - MGOrder Info: [id number] - TSH Performed By: #### L 500.4050, L100.0100, L506.1000, L501.9520, L501.5200, L500.4100 ####[facility] [address] [place], [address] Cholesterol in VLDL [Mass/Vol] 27 mg/dL Normal 5-40 [facility] Comment on above: Order Comment: Order Date: 10/07/24Order Info: 785- - CMPOrder Info: [id number] - LIPIDOrder Info: [id number] - MGOrder Info: [id number] - TSH Performed By: #### L 500.4050, L100.0100, L506.1000, L501.9520, L501.5200, L500.4100 ####[facility] [address] [place], [address] Triglyceride [Mass/Vol] 134 mg/dL Normal [facility] Comment on above: Order Comment: Order Date: 10/07/24Order Info: 785- - CMPOrder Info: - LIPIDOrder Info: [id number] - MGOrder Info: [id number] - TSH Result Comment: The drugs N-Acetylcysteine and Metamizole may falselydepress this assay.Serum Triglycerides Reference Interval Normal <150 mg/dL Borderline high 150 - 199 mg/dL High 200 - 499 mg/dL Very High > or = 500 mg/dL Performed By: #### L 500.4050, L100.0100, L506.1000, L501.9520, L501.5200, L500.4100 ####[facility] [address] [place], [place], [id number] Magnesiumon 10-07-2024 Magnesium [Mass/Vol] 2.0 mg/dL Normal 1.6-2.6 [facility] Comment on above: Order Comment: Order Date: 10/07/24Order Info: [id number] - CMPOrder Info: - LIPIDOrder Info: - MGOrder Info: [id number] - TSH Performed By: #### L 500.4050, L100.0100, L506.1000, L501.9520, L501.5200, L500.4100 ####[facility] [address] [place], [place], [id number] Thyroid Stim Hormone (TSH)on 10-07-2024 TSH 1.000 uIU/mL Normal 0.358-3.740 [facility] Comment on above: Order Comment: Order Date: 10/07/24Order Info: 785- - CMPOrder Info: - LIPIDOrder Info: - MGOrder Info: [id number] - TSH Performed By: #### L 500.4050, L100.0100, L506.1000, L501.9520, L501.5200, L500.4100 ####[facility] [address] [place], [address] Urinalysis, Completeon 10-07 WBC 0-5 SEEN Normal 0-5 [facility] Comment on above: Order Comment: CLEAN CATCH Performed By: #### L 503.6030, L400.0001, L503.0105, L501.9985, L503.6550 ####[facility] [address] [place], [address] EPI,SQUAMOUS 0-5 SEEN Normal 5-10 [facility] Comment on above: Order Comment: CLEAN CATCH Performed By: #### L 503.6030, L400.0001, L503.0105, L501.9985, L503.6550 ####[facility] [address] [place], [address] BACTERIA 0 SEEN Normal None Seen [facility] Comment on above: Order Comment: CLEAN CATCH Performed By: #### L 503.6030, L400.0001, L503.0105, L501.9985, L503.6550 ####[facility] [address] [place], [address] Mucus Ql (Urine sed) 0 SEEN Normal [facility] Comment on above: Order Comment: CLEAN CATCH Performed By: #### L 503.6030, L400.0001, L503.0105, L501.9985, L503.6550 ####[facility] [address] [place], [address] RBC 0 SEEN Normal 0-5 [facility] Comment on above: Order Comment: CLEAN CATCH Performed By: #### L 503.6030, L400.0001, L503.0105, L501.9985, L503.6550 ####[facility] [address] [place], [address] Vitamin D,25 Hydroxyon 10-07 Vitamin D 25-OH 38.5 ng/mL Normal [facility] Comment on above: Order Comment: Order Date: 12/19/24Order Info: [id number] - VITD25 Result Comment: Daria min D 25(OH) Status Range Deficiency <20 ng/mL (50nmol/L) Insufficiency 20 - 30 ng/mL (50 - 75 nmol/L) Sufficiency 30 - 100 ng/mL (75 - 250 nmol/L) Toxicity >100 ng/mL (>250 nmol/L) Performed By: #### L 500.4050, L100.0100, L506.1000, L501.9520, L501.5200, L500.4100 ####[facility] [address] [place], [address] CBC W/Diff, Automatedon 11-0 4-2023 Absolute Lymph 1.31 X10 3/uL Normal 0.83-4.51 [facility] Comment on above: Performed By: #### L 503.6030, L100.9950, L503.6550, L100.0100 ####[facility] [address] [place], [address] Absolute Neut 4.6 X10 3/uL Normal 2.0-7.7 [facility] Comment on above: Performed By: #### L 503.6030, L100.9950, L503.6550, L100.0100 ####[facility] [address] [place], [address] Basophils/100 WBC (Bld) 0.6 % Normal 0-1 [facility] Comment on above: Performed By: #### L 503.6030, L100.9950, L503.6550, L100.0100 ####[facility] [address] [place], [address] Eosinophils/100 WBC (Bld) 1.4 % Normal 0-5 [facility] Comment on above: Performed By: #### L 503.6030, L100.9950, L503.6550, L100.0100 ####[facility] [address] [place], [address] Erythrocyte distribution width (RBC) [Ratio] 16.6 % High 11.6-14.6 [facility] Comment on above: Performed By: #### L 503.6030, L100.9950, L503.6550, L100.0100 ####[facility] [address] [place], [address] Hematocrit (Bld) [Volume fraction] 37.5 % Normal 37-47 [facility] Comment on above: Performed By: #### L 503.6030, L100.9950, L503.6550, L100.0100 ####[facility] [address] [place], [address] Hemoglobin (Bld) [Mass/Vol] 12.0 g/dL Normal 12.0-15.0 [facility] Comment on above: Performed By: #### L 503.6030, L100.9950, L503.6550, L100.0100 ####[facility] [address] [place], [address] IG% 0.300 Normal 0.0-0.9 [facility] Comment on above: Result Comment: IG% - Immature Granulocytes (promyelocytes, myelocytes andmetamyelocytes) > 1% indicates that a LEFT SHIFT is Present. Performed By: #### L 503.6030, L100.9950, L503.6550, L100.0100 ####[facility] [address] [place], [address] Lymphocytes/100 WBC (Bld) 19.8 % Normal 19-41 [facility] Comment on above: Performed By: #### L 503.6030, L100.9950, L503.6550, L100.0100 ####[facility] [address] [place], [address] MCH (RBC) [Entitic mass] 27.9 pg Normal 27.0-32.0 [facility] Comment on above: Performed By: #### L 503.6030, L100.9950, L503.6550, L100.0100 ####[facility] [address] [place], [address] MCHC (RBC) [Mass/Vol] 32.0 g/dL Normal 32-36 [facility] Comment on above: Performed By: #### L 503.6030, L100.9950, L503.6550, L100.0100 ####[facility] [address] [place], [address] MCV (RBC) [Entitic vol] 87.2 fL Normal 81-99 [facility] Comment on above: Performed By: #### L 503.6030, L100.9950, L503.6550, L100.0100 ####[facility] [address] [place], [address] Monocytes/100 WBC (Bld) 8.6 % Normal 0-10 [facility] Comment on above: Performed By: #### L 503.6030, L100.9950, L503.6550, L100.0100 ####[facility] [address] [place], [address] Neutrophils/100 WBC (Bld) 69.3 % Normal 47-70 [facility] Comment on above: Performed By: #### L 503.6030, L100.9950, L503.6550, L100.0100 ####[facility] [address] [place], [address] Nucleated RBC (Bld) [#/Vol] 0 10*3/uL Normal 0-5 [facility] Comment on above: Performed By: #### L 503.6030, L100.9950, L503.6550, L100.0100 ####[facility] [address] [place], [address] Platelet mean volume (Bld) [Entitic vol] 9.3 fL Normal 6.2-12.0 [facility] Comment on above: Performed By: #### L 503.6030, L100.9950, L503.6550, L100.0100 ####[facility] [address] [place], [address] Platelets (Bld) [#/Vol] 357 10*3/uL Normal 150-450 [facility] Comment on above: Performed By: #### L 503.6030, L100.9950, L503.6550, L100.0100 ####[facility] [address] [place], [address] RBC (Bld) [#/Vol] 4.30 10*6/uL Normal 4.2-5.4 [facility] Comment on above: Performed By: #### L 503.6030, L100.9950, L503.6550, L100.0100 ####[facility] [address] [place], [address] RDW SD 53.1 fl High 35.1-43.9 [facility] Comment on above: Performed By: #### L 503.6030, L100.9950, L503.6550, L100.0100 ####[facility] [address] [place], [address] WBC (Bld) [#/Vol] 6.6 10*3/uL Normal 4.4-11.0 [facility] Comment on above: Performed By: #### L 503.6030, L100.9950, L503.6550, L100.0100 ####[facility] [address] [place], [address] Ferritinon 08-23-2024 Ferritin [Mass/Vol] 7 ng/mL Low 8-252 [facility] Comment on above: Performed By: #### L 503.6030, L100.9950, L503.6550, L100.0100 ####[facility] [address] [place], [address] Iron+Iron Binding Capacityon 08-23-2024 Iron [Mass/Vol] 43 ug/dL Low 50-170 [facility] Comment on above: Performed By: #### L 503.6030, L100.9950, L503.6550, L100.0100 ####[facility] [address] [place], [address] IRON SATURATION 9.4 Low 15.0-55.0 [facility] Comment on above: Performed By: #### L 503.6030, L100.9950, L503.6550, L100.0100 ####[facility] [address] [place], [address] TIBC 459 ug/dL High 250-450 [facility] Comment on above: Performed By: #### L 503.6030, L100.9950, L503.6550, L100.0100 ####[facility] [address] [place], [address] Oncology Visit Reporton Oncology Visit Report Normal [facility] Retic Panelon 08-23-2024 IM RET FRACTION 7.40 Normal 3.00-15.90 [facility] Comment on above: Performed By: #### L 503.6030, L100.9950, L503.6550, L100.0100 ####[facility] [address] [place], [address] RET-HE 30.3 pg Normal 30-35 [facility] Comment on above: Performed By: #### L 503.6030, L100.9950, L503.6550, L100.0100 ####[facility] [address] [place], [address] Retic Count 1.07 Normal 0.5-1.5 [facility] Comment on above: Performed By: #### L 503.6030, L100.9950, L503.6550, L100.0100 ####[facility] [address] [place], [address] Surgery Visit Reporton 08-09 Surgery Visit Report Normal [facility] Thyroidon 07-01-2024 Thyroid Normal [facility] Radiation Oncology Visiton 0 06-24-2024 Radiation Oncology Visit Normal [facility] Hemoglobin A1con 06-10-2024 HbA1c (Bld) [Mass fraction] 5.6 % Normal 3.8-5.6 [facility] Comment on above: Order Comment: GRACIA Gomez ADD A1C TO 06/09/24 BLOOD WORK PER Result Comment: Norm al < 5.7 % Prediabetic 5.7 - 6.4 % Diabetic >or= 6.5 % Please note range changes. Performed By: #### L 501.9985, L400.0001 ####[facility] [address] [place], [address] CBC W/Diff, Automatedon 05-21 Absolute Lymph 0.74 X10 3/uL Low 0.83-4.51 [facility] Comment on above: Order Comment: Order Date: 06/09/24Order Info: 0184-1 - CBCD Performed By: #### L 100.0100, L500.4100, L506.1000, L501.5200, L501.9520, L500.4050 ####[facility] [address] [place], [address] Absolute Neut 7.0 X10 3/uL Normal 2.0-7.7 [facility] Comment on above: Order Comment: Order Date: 06/09/24Order Info: 0184-1 - CBCD Performed By: #### L 100.0100, L500.4100, L506.1000, L501.5200, L501.9520, L500.4050 ####[facility] [address] [place], [address] Basophils/100 WBC (Bld) 0.7 % Normal 0-1 [facility] Comment on above: Order Comment: Order Date: 06/09/24Order Info: 018- - CBCD Performed By: #### L 100.0100, L500.4100, L506.1000, L501.5200, L501.9520, L500.4050 ####[facility] [address] [place], [address] Eosinophils/100 WBC (Bld) 1.8 % Normal 0-5 [facility] Comment on above: Order Comment: Order Date: 06/09/24Order Info: 018- - CBCD Performed By: #### L 100.0100, L500.4100, L506.1000, L501.5200, L501.9520, L500.4050 ####[facility] [address] [place], [address] Erythrocyte distribution width (RBC) [Ratio] 17.2 % High 11.6-14.6 [facility] Comment on above: Order Comment: Order Date: 06/09/24Order Info: 018- - CBCD Performed By: #### L 100.0100, L500.4100, L506.1000, L501.5200, L501.9520, L500.4050 ####[facility] [address] [place], [address] Hematocrit (Bld) [Volume fraction] 36.8 % Low 37-47 [facility] Comment on above: Order Comment: Order Date: 06/09/24Order Info: 018- - CBCD Performed By: #### L 100.0100, L500.4100, L506.1000, L501.5200, L501.9520, L500.4050 ####[facility] [address] [place], [address] Hemoglobin (Bld) [Mass/Vol] 11.5 g/dL Low 12.0-15.0 [facility] Comment on above: Order Comment: Order Date: 06/09/24Order Info: 183- - CBCD Performed By: #### L 100.0100, L500.4100, L506.1000, L501.5200, L501.9520, L500.4050 ####[facility] [address] [place], [address] IG% 0.400 Normal 0.0-0.9 [facility] Comment on above: Order Comment: Order Date: 06/09/24Order Info: 183- - CBCD Result Comment: IG% - Immature Granulocytes (promyelocytes, myelocytes andmetamyelocytes) > 1% indicates that a LEFT SHIFT is Present. Performed By: #### L 100.0100, L500.4100, L506.1000, L501.5200, L501.9520, L500.4050 ####[facility] [address] [place], [address] Lymphocytes/100 WBC (Bld) 8.9 % Low 19-41 [facility] Comment on above: Order Comment: Order Date: 06/09/24Order Info: 018- - CBCD Performed By: #### L 100.0100, L500.4100, L506.1000, L501.5200, L501.9520, L500.4050 ####[facility] [address] [place], [address] MCH (RBC) [Entitic mass] 27.8 pg Normal 27.0-32.0 [facility] Comment on above: Order Comment: Order Date: 06/09/24Order Info: 018- - CBCD Performed By: #### L 100.0100, L500.4100, L506.1000, L501.5200, L501.9520, L500.4050 ####[facility] [address] [place], [address] MCHC (RBC) [Mass/Vol] 31.3 g/dL Low 32-36 [facility] Comment on above: Order Comment: Order Date: 06/09/24Order Info: 183-1 - CBCD Performed By: #### L 100.0100, L500.4100, L506.1000, L501.5200, L501.9520, L500.4050 ####[facility] [address] [place], [address] MCV (RBC) [Entitic vol] 88.9 fL Normal 81-99 [facility] Comment on above: Order Comment: Order Date: 06/09/24Order Info: 183- - CBCD Performed By: #### L 100.0100, L500.4100, L506.1000, L501.5200, L501.9520, L500.4050 ####[facility] [address] [place], [address] Monocytes/100 WBC (Bld) 4.9 % Normal 0-10 [facility] Comment on above: Order Comment: Order Date: 06/09/24Order Info: 018- - CBCD Performed By: #### L 100.0100, L500.4100, L506.1000, L501.5200, L501.9520, L500.4050 ####[facility] [address] [place], [address] Neutrophils/100 WBC (Bld) 83.3 % High 47-70 [facility] Comment on above: Order Comment: Order Date: 06/09/24Order Info: 0184-1 - CBCD Performed By: #### L 100.0100, L500.4100, L506.1000, L501.5200, L501.9520, L500.4050 ####[facility] [address] [place], [address] Nucleated RBC (Bld) [#/Vol] 0 10*3/uL Normal 0-5 [facility] Comment on above: Order Comment: Order Date: 06/09/24Order Info: 0184-1 - CBCD Performed By: #### L 100.0100, L500.4100, L506.1000, L501.5200, L501.9520, L500.4050 ####[facility] [address] [place], [address] Platelet mean volume (Bld) [Entitic vol] 9.8 fL Normal 6.2-12.0 [facility] Comment on above: Order Comment: Order Date: 06/09/24Order Info: 0184-1 - CBCD Performed By: #### L 100.0100, L500.4100, L506.1000, L501.5200, L501.9520, L500.4050 ####[facility] [address] [place], [address] Platelets (Bld) [#/Vol] 385 10*3/uL Normal 150-450 [facility] Comment on above: Order Comment: Order Date: 06/09/24Order Info: 0184-1 - CBCD Performed By: #### L 100.0100, L500.4100, L506.1000, L501.5200, L501.9520, L500.4050 ####[facility] [address] [place], [address] RBC (Bld) [#/Vol] 4.14 10*6/uL Low 4.2-5.4 [facility] Comment on above: Order Comment: Order Date: 06/09/24Order Info: 0184-1 - CBCD Performed By: #### L 100.0100, L500.4100, L506.1000, L501.5200, L501.9520, L500.4050 ####[facility] [address] [place], [address] RDW SD 55.8 fl High 35.1-43.9 [facility] Comment on above: Order Comment: Order Date: 06/09/24Order Info: 0184-1 - CBCD Performed By: #### L 100.0100, L500.4100, L506.1000, L501.5200, L501.9520, L500.4050 ####[facility] [address] [place], [address] WBC (Bld) [#/Vol] 8.4 10*3/uL Normal 4.4-11.0 [facility] Comment on above: Order Comment: Order Date: 06/09/24Order Info: 018- - CBCD Performed By: #### L 100.0100, L500.4100, L506.1000, L501.5200, L501.9520, L500.4050 ####[facility] [address] [place], [place], [address] Comprehensive Metabolic Prof ilon 06-09-2024 Albumin [Mass/Vol] 3.6 g/dL Normal 3.2-5.0 [facility] Comment on above: Order Comment: Order Date: 06/09/24Order Info: [id number] - CMPOrder Info: [id number] - LIPIDOrder Info: [id number] - MGOrder Info: [id number] - TSH Performed By: #### L 100.0100, L500.4100, L506.1000, L501.5200, L501.9520, L500.4050 ####[facility] [address] [place], [address] Albumin/Globulin [Mass ratio] 1.1 {ratio} Normal 0.9-2.4 [facility] Comment on above: Order Comment: Order Date: 06/09/24Order Info: 0786-1 - CMPOrder Info: [id number] - LIPIDOrder Info: [id number] - MGOrder Info: [id number] - TSH Performed By: #### L 100.0100, L500.4100, L506.1000, L501.5200, L501.9520, L500.4050 ####[facility] [address] [place], [address] ALK P 82 U/L Normal 45-117 [facility] Comment on above: Order Comment: Order Date: 06/09/24Order Info: 0786-1 - CMPOrder Info: [id number] - LIPIDOrder Info: [id number] - MGOrder Info: [id number] - TSH Performed By: #### L 100.0100, L500.4100, L506.1000, L501.5200, L501.9520, L500.4050 ####[facility] [address] [place], [address] ALT [Catalytic activity/Vol] 21 U/L Normal 13-56 [facility] Comment on above: Order Comment: Order Date: 06/09/24Order Info: 785- - CMPOrder Info: [id number] - LIPIDOrder Info: [id number] - MGOrder Info: [id number] - TSH Performed By: #### L 100.0100, L500.4100, L506.1000, L501.5200, L501.9520, L500.4050 ####[facility] [address] [place], [address] AST [Catalytic activity/Vol] 16 U/L Normal 15-37 [facility] Comment on above: Order Comment: Order Date: 06/09/24Order Info: 785-1 - CMPOrder Info: [id number] - LIPIDOrder Info: [id number] - MGOrder Info: [id number] - TSH Performed By: #### L 100.0100, L500.4100, L506.1000, L501.5200, L501.9520, L500.4050 ####[facility] [address] [place], [address] Bilirubin [Mass/Vol] 0.20 mg/dL Normal 0.20-1.00 [facility] Comment on above: Order Comment: Order Date: 06/09/24Order Info: 86-1 - CMPOrder Info: [id number] - LIPIDOrder Info: [id number] - MGOrder Info: 301-3 - TSH Result Comment: For patients on eltrombopag therapy, use of Dimension [place] TBIL is not recommended. Performed By: #### L 100.0100, L500.4100, L506.1000, L501.5200, L501.9520, L500.4050 ####[facility] [address] [place], [address] BUN/CRE 19.5 RATIO Normal 10-20 [facility] Comment on above: Order Comment: Order Date: 06/09/24Order Info: 785-1 - CMPOrder Info: [id number] - LIPIDOrder Info: [id number] - MGOrder Info: 301-3 - TSH Performed By: #### L 100.0100, L500.4100, L506.1000, L501.5200, L501.9520, L500.4050 ####[facility] [address] [place], [address] CA,Total 9.7 mg/dL Normal 8.5-10.1 [facility] Comment on above: Order Comment: Order Date: 06/09/24Order Info: 785-1 - CMPOrder Info: [id number] - LIPIDOrder Info: [id number] - MGOrder Info: [id number] - TSH Performed By: #### L 100.0100, L500.4100, L506.1000, L501.5200, L501.9520, L500.4050 ####[facility] [address] [place], [address] Chloride [Moles/Vol] 106 mmol/L Normal 98-107 [facility] Comment on above: Order Comment: Order Date: 06/09/24Order Info: [id number] - CMPOrder Info: [id number] - LIPIDOrder Info: [id number] - MGOrder Info: [id number] - TSH Performed By: #### L 100.0100, L500.4100, L506.1000, L501.5200, L501.9520, L500.4050 ####[facility] [address] [place], [address] CO2 [Moles/Vol] 28.0 mmol/L Normal 21.0-32.0 [facility] Comment on above: Order Comment: Order Date: 06/09/24Order Info: 86-1 - CMPOrder Info: [id number] - LIPIDOrder Info: [id number] - MGOrder Info: [id number] - TSH Performed By: #### L 100.0100, L500.4100, L506.1000, L501.5200, L501.9520, L500.4050 ####[facility] [address] [place], [address] Creatinine [Mass/Vol] 0.66 mg/dL Normal 0.55-1.02 [facility] Comment on above: Order Comment: Order Date: 06/09/24Order Info: [id number] - CMPOrder Info: [id number] - LIPIDOrder Info: [id number] - MGOrder Info: [id number] - TSH Result Comment: The validity of the calculated GFR GFRAA in patients over70 years has not been determined. Clinical correlation isessential. Performed By: #### L 100.0100, L500.4100, L506.1000, L501.5200, L501.9520, L500.4050 ####[facility] [address] [place], [address] EST GFR - AA 114 mL/min Normal >60 [facility] Comment on above: Order Comment: Order Date: 06/09/24Order Info: 785-1 - CMPOrder Info: [id number] - LIPIDOrder Info: [id number] - MGOrder Info: [id number] - TSH Result Comment: Afri can Burmese GFR Calc Performed By: #### L 100.0100, L500.4100, L506.1000, L501.5200, L501.9520, L500.4050 ####[facility] [address] [place], [address] GAP 2 Low 5-15 [facility] Comment on above: Order Comment: Order Date: 06/09/24Order Info: [id number] - CMPOrder Info: [id number] - LIPIDOrder Info: [id number] - MGOrder Info: [id number] - TSH Performed By: #### L 100.0100, L500.4100, L506.1000, L501.5200, L501.9520, L500.4050 ####[facility] [address] [place], [address] GFR/1.73 sq M.predicted among non-blacks MDRD (S/P/Bld) [Vol rate/Area] 94 mL/min/{1.73_m2} Normal >60 [facility] Comment on above: Order Comment: Order Date: 06/09/24Order Info: 785-1 - CMPOrder Info: [id number] - LIPIDOrder Info: [id number] - MGOrder Info: [id number] - TSH Result Comment: Non- GFR Calc Performed By: #### L 100.0100, L500.4100, L506.1000, L501.5200, L501.9520, L500.4050 ####[facility] [address] [place], [address] Globulin (S) [Mass/Vol] 3.4 g/dL Normal 2.2-4.2 [facility] Comment on above: Order Comment: Order Date: 06/09/24Order Info: 86-1 - CMPOrder Info: [id number] - LIPIDOrder Info: [id number] - MGOrder Info: [id number] - TSH Performed By: #### L 100.0100, L500.4100, L506.1000, L501.5200, L501.9520, L500.4050 ####[facility] [address] [place], [address] Glucose [Mass/Vol] 101 mg/dL Normal 74-106 [facility] Comment on above: Order Comment: Order Date: 06/09/24Order Info: 785- - CMPOrder Info: - LIPIDOrder Info: [id number] - MGOrder Info: [id number] - TSH Result Comment: Fast ing Glucose result from 100 to 125 mg/dLsuggests IMPAIRED HOMEOSTASIS per A.D.A. criteria. Performed By: #### L 100.0100, L500.4100, L506.1000, L501.5200, L501.9520, L500.4050 ####[facility] [address] [place], [address] Potassium [Moles/Vol] 3.9 mmol/L Normal 3.5-5.1 [facility] Comment on above: Order Comment: Order Date: 06/09/24Order Info: [id number] - CMPOrder Info: - LIPIDOrder Info: [id number] - MGOrder Info: 6-3 - TSH Performed By: #### L 100.0100, L500.4100, L506.1000, L501.5200, L501.9520, L500.4050 ####[facility] [address] [place], [address] Sodium [Moles/Vol] 136 mmol/L Normal 136-145 [facility] Comment on above: Order Comment: Order Date: 06/09/24Order Info: [id number] - CMPOrder Info: - LIPIDOrder Info: [id number] - MGOrder Info: 6-3 - TSH Performed By: #### L 100.0100, L500.4100, L506.1000, L501.5200, L501.9520, L500.4050 ####[facility] [address] [place], [address] T PROT 7.0 g/dL Normal 6.4-8.2 [facility] Comment on above: Order Comment: Order Date: 06/09/24Order Info: 785- - CMPOrder Info: - LIPIDOrder Info: [id number] - MGOrder Info: [id number] - TSH Performed By: #### L 100.0100, L500.4100, L506.1000, L501.5200, L501.9520, L500.4050 ####[facility] [address] [place], [address] Urea nitrogen [Mass/Vol] 13 mg/dL Normal 7-18 [facility] Comment on above: Order Comment: Order Date: 06/09/24Order Info: 785- - CMPOrder Info: - LIPIDOrder Info: [id number] - MGOrder Info: 3 - TSH Performed By: #### L 100.0100, L500.4100, L506.1000, L501.5200, L501.9520, L500.4050 ####[facility] [address] [place], [address] Lipid Profileon 06-09-2024 Cholesterol [Mass/Vol] 165 mg/dL Normal 200 [facility] Comment on above: Order Comment: Order Date: 06/09/24Order Info: [id number] - CMPOrder Info: - LIPIDOrder Info: [id number] - MGOrder Info: 3 - TSH Result Comment: <200 mg/dL Desirable 200-240 mg/dL Borderline >240 mg/dL High Risk Performed By: #### L 100.0100, L500.4100, L506.1000, L501.5200, L501.9520, L500.4050 ####[facility] [address] [place], [address] Cholesterol in HDL [Mass/Vol] 61 mg/dL Normal [facility] Comment on above: Order Comment: Order Date: 06/09/24Order Info: 785- - CMPOrder Info: [id number] - LIPIDOrder Info: [id number] - MGOrder Info: [id number] - TSH Result Comment: The drugs N-Acetylcysteine and Metamizole may falselydepress this assay. Reference Range HDL <40 mg/dL Low HDL Cholesterol HDL >or= 60 mg/dL High HDL Cholesterol Performed By: #### L 100.0100, L500.4100, L506.1000, L501.5200, L501.9520, L500.4050 ####[facility] [address] [place], [address] Cholesterol in LDL [Mass/Vol] 84 mg/dL Normal 0-130 [facility] Comment on above: Order Comment: Order Date: 06/09/24Order Info: 86-1 - CMPOrder Info: [id number] - LIPIDOrder Info: [id number] - MGOrder Info: [id number] - TSH Performed By: #### L 100.0100, L500.4100, L506.1000, L501.5200, L501.9520, L500.4050 ####[facility] [address] [place], [address] Cholesterol in VLDL [Mass/Vol] 20 mg/dL Normal 5-40 [facility] Comment on above: Order Comment: Order Date: 06/09/24Order Info: 785-1 - CMPOrder Info: [id number] - LIPIDOrder Info: [id number] - MGOrder Info: [id number] - TSH Performed By: #### L 100.0100, L500.4100, L506.1000, L501.5200, L501.9520, L500.4050 ####[facility] [address] [place], [address] Triglyceride [Mass/Vol] 98 mg/dL Normal [facility] Comment on above: Order Comment: Order Date: 06/09/24Order Info: 86-1 - CMPOrder Info: [id number] - LIPIDOrder Info: [id number] - MGOrder Info: [id number] - TSH Result Comment: The drugs N-Acetylcysteine and Metamizole may falselydepress this assay.Serum Triglycerides Reference Interval Normal <150 mg/dL Borderline high 150 - 199 mg/dL High 200 - 499 mg/dL Very High > or = 500 mg/dL Performed By: #### L 100.0100, L500.4100, L506.1000, L501.5200, L501.9520, L500.4050 ####[facility] [address] [place], [address] Magnesiumon 06-09-2024 Magnesium [Mass/Vol] 2.0 mg/dL Normal 1.6-2.6 [facility] Comment on above: Order Comment: Order Date: 06/09/24Order Info: [id number] - CMPOrder Info: [id number] - LIPIDOrder Info: [id number] - MGOrder Info: [id number] - TSH Performed By: #### L 100.0100, L500.4100, L506.1000, L501.5200, L501.9520, L500.4050 ####[facility] [address] [place], [address] Thyroid Stim Hormone (TSH)on 06-09-2024 TSH 0.845 uIU/mL Normal 0.358-3.740 [facility] Comment on above: Order Comment: Order Date: 06/09/24Order Info: [id number] - CMPOrder Info: [id number] - LIPIDOrder Info: [id number] - MGOrder Info: [id number] - TSH Performed By: #### L 100.0100, L500.4100, L506.1000, L501.5200, L501.9520, L500.4050 ####[facility] [address] [place], [address] Urinalysis, Completeon 06-09 BACTERIA 2+ /hpf Normal None Seen [facility] Comment on above: Order Comment: CLEAN CATCH Performed By: #### L 501.9985, L400.0001 ####[facility] [address] [place], [address] EPI,SQUAMOUS 0-5 SEEN Normal 5-10 [facility] Comment on above: Order Comment: CLEAN CATCH Performed By: #### L 501.9985, L400.0001 ####[facility] [address] [place], [address] WBC 5-10 SEEN Normal 0-5 [facility] Comment on above: Order Comment: CLEAN CATCH Performed By: #### L 501.9985, L400.0001 ####[facility] [id number] [place], [address] Mucus Ql (Urine sed) 0 SEEN Normal [facility] Comment on above: Order Comment: CLEAN CATCH Performed By: #### L 501.9985, L400.0001 ####[facility] [address] [place], [address] RBC 0 SEEN Normal 0-5 [facility] Comment on above: Order Comment: CLEAN CATCH Performed By: #### L 501.9985, L400.0001 ####[facility] [address] [place], [address] Vitamin D,25 Hydroxyon 06-09 Vitamin D 25-OH 57.6 ng/mL Normal [facility] Comment on above: Order Comment: Order Date: 06/09/24Order Info: [id number] - VITD25 Result Comment: Daria min D 25(OH) Status Range Deficiency <20 ng/mL (50nmol/L) Insufficiency 20 - 30 ng/mL (50 - 75 nmol/L) Sufficiency 30 - 100 ng/mL (75 - 250 nmol/L) Toxicity >100 ng/mL (>250 nmol/L) Performed By: #### L 100.0100, L500.4100, L506.1000, L501.5200, L501.9520, L500.4050 ####[facility] [address] [place], [address] End of Treatment Summaryon 0 - End of Treatment Summary Normal [facility] Oncology Visit Reporton 08- Oncology Visit Report Normal [facility] Radiation Oncology Visiton 0 - Radiation Oncology Visit Normal [facility] Radiation Oncology Visit Normal [facility] Radiation Oncology Visiton 0 05-19-2024 Radiation Oncology Visit Normal [facility] Radiation Oncology Visiton 0 05-12-2024 Radiation Oncology Visit Normal [facility] Orthopedic Visit Reporton Orthopedic Visit Report Normal [facility] Radiation Oncology Visiton 0 05-05-2024 Radiation Oncology Visit Normal [facility] Basic Metabolic Profile (BMP )on 05-03-2024 BUN Normal 05-06 [facility] Comment on above: Result Comment: Canc elled via OM: Order cancelled - Patient discharged Performed By: #### L 500.2500, L100.0100 ####[facility] [address] [place], [address] BUN/CRE Normal - [facility] Comment on above: Result Comment: Canc elled via OM: Order cancelled - Patient discharged Performed By: #### L 500.2500, L100.0100 ####[facility] [address] [place], [address] CA,Total Normal 8.5-10.1 [facility] Comment on above: Result Comment: Canc elled via OM: Order cancelled - Patient discharged Performed By: #### L 500.2500, L100.0100 ####[facility] [address] [place], [address] CL Normal 98-107 [facility] Comment on above: Result Comment: Canc elled via OM: Order cancelled - Patient discharged Performed By: #### L 500.2500, L100.0100 ####[facility] [address] [place], [address] CO2 Normal 21.0-32.0 [facility] Comment on above: Result Comment: Canc elled via OM: Order cancelled - Patient discharged Performed By: #### L 500.2500, L100.0100 ####[facility] [address] [place], [address] CREAT,SERUM Normal 0.55-1.02 [facility] Comment on above: Result Comment: Canc elled via OM: Order cancelled - Patient discharged Performed By: #### L 500.2500, L100.0100 ####[facility] [address] [place], [address] EST GFR Normal >60 [facility] Comment on above: Result Comment: Canc elled via OM: Order cancelled - Patient discharged Performed By: #### L 500.2500, L100.0100 ####[facility] [address] [place], [address] EST GFR - AA Normal >60 [facility] Comment on above: Result Comment: Canc elled via OM: Order cancelled - Patient discharged Performed By: #### L 500.2500, L100.0100 ####[facility] [address] [place], [address] GAP Normal 5-15 [facility] Comment on above: Result Comment: Canc elled via OM: Order cancelled - Patient discharged Performed By: #### L 500.2500, L100.0100 ####[facility] [address] [place], [address] GLU Normal 74-106 [facility] Comment on above: Result Comment: Canc elled via OM: Order cancelled - Patient discharged Performed By: #### L 500.2500, L100.0100 ####[facility] [address] [place], [address] Potassium Normal 3.5-5.1 [facility] Comment on above: Result Comment: Canc elled via OM: Order cancelled - Patient discharged Performed By: #### L 500.2500, L100.0100 ####[facility] [address] [place], [address] Basic Metabolic Profile (BMP) Normal 136-145 [facility] Comment on above: Result Comment: Canc elled via OM: Order cancelled - Patient discharged Performed By: #### L 500.2500, L100.0100 ####[facility] [address] [place], [address] CBC W/Diff, Automatedon 07-1 Absolute Neut Normal 2.0-7.7 [facility] Comment on above: Result Comment: Canc elled via OM: Order cancelled - Patient discharged Performed By: #### L 500.2500, L100.0100 ####[facility] [address] [place], [address] HCT Normal 37-47 [facility] Comment on above: Result Comment: Canc elled via OM: Order cancelled - Patient discharged Performed By: #### L 500.2500, L100.0100 ####[facility] [address] [place], [address] HGB Normal 12.0-15.0 [facility] Comment on above: Result Comment: Canc elled via OM: Order cancelled - Patient discharged Performed By: #### L 500.2500, L100.0100 ####[facility] [address] [place], [address] MCH Normal 27.0-32.0 [facility] Comment on above: Result Comment: Canc elled via OM: Order cancelled - Patient discharged Performed By: #### L 500.2500, L100.0100 ####[facility] [address] [place], [address] MCHC Normal 32-36 [facility] Comment on above: Result Comment: Canc elled via OM: Order cancelled - Patient discharged Performed By: #### L 500.2500, L100.0100 ####[facility] [address] [place], [address] MCV Normal 81-99 [facility] Comment on above: Result Comment: Canc elled via OM: Order cancelled - Patient discharged Performed By: #### L 500.2500, L100.0100 ####[facility] [address] [place], [address] NEUT% Normal 47-70 [facility] Comment on above: Result Comment: Canc elled via OM: Order cancelled - Patient discharged Performed By: #### L 500.2500, L100.0100 ####[facility] [address] [place], [address] PLT Normal 150-450 [facility] Comment on above: Result Comment: Canc elled via OM: Order cancelled - Patient discharged Performed By: #### L 500.2500, L100.0100 ####[facility] [address] [place], [address] RBC Normal 4.2-5.4 [facility] Comment on above: Result Comment: Canc elled via OM: Order cancelled - Patient discharged Performed By: #### L 500.2500, L100.0100 ####[facility] [address] [place], [address] RDW CV Normal 11.6-14.6 [facility] Comment on above: Result Comment: Canc elled via OM: Order cancelled - Patient discharged Performed By: #### L 500.2500, L100.0100 ####[facility] [address] [place], [address] RDW SD Normal 35.1-43.9 [facility] Comment on above: Result Comment: Canc elled via OM: Order cancelled - Patient discharged Performed By: #### L 500.2500, L100.0100 ####[facility] [address] [place], [address] WBC Normal 4.4-11.0 [facility] Comment on above: Result Comment: Canc elled via OM: Order cancelled - Patient discharged Performed By: #### L 500.2500, L100.0100 ####[facility] [address] [place], [address] Basic Metabolic Profile (BMP )on 05-02-2024 BUN Normal 7-18 [facility] Comment on above: Result Comment: Canc elled via OM: Order cancelled - Patient discharged Performed By: #### L 100.0100, L500.2500 ####[facility] [address] [place], [address] BUN/CRE Normal 10-20 [facility] Comment on above: Result Comment: Canc elled via OM: Order cancelled - Patient discharged Performed By: #### L 100.0100, L500.2500 ####[facility] [address] [place], [address] CA,Total Normal 8.5-10.1 [facility] Comment on above: Result Comment: Canc elled via OM: Order cancelled - Patient discharged Performed By: #### L 100.0100, L500.2500 ####[facility] [address] [place], [address] CL Normal 98-107 [facility] Comment on above: Result Comment: Canc elled via OM: Order cancelled - Patient discharged Performed By: #### L 100.0100, L500.2500 ####[facility] [address] [place], [address] CO2 Normal 21.0-32.0 [facility] Comment on above: Result Comment: Canc elled via OM: Order cancelled - Patient discharged Performed By: #### L 100.0100, L500.2500 ####[facility] [address] [place], [address] CREAT,SERUM Normal 0.55-1.02 [facility] Comment on above: Result Comment: Canc elled via OM: Order cancelled - Patient discharged Performed By: #### L 100.0100, L500.2500 ####[facility] [address] [place], [address] EST GFR Normal >60 [facility] Comment on above: Result Comment: Canc elled via OM: Order cancelled - Patient discharged Performed By: #### L 100.0100, L500.2500 ####[facility] [address] [place], [address] EST GFR - AA Normal >60 [facility] Comment on above: Result Comment: Canc elled via OM: Order cancelled - Patient discharged Performed By: #### L 100.0100, L500.2500 ####[facility] [address] [place], [address] GAP Normal 5-15 [facility] Comment on above: Result Comment: Canc elled via OM: Order cancelled - Patient discharged Performed By: #### L 100.0100, L500.2500 ####[facility] [address] [place], [address] GLU Normal 74-106 [facility] Comment on above: Result Comment: Canc elled via OM: Order cancelled - Patient discharged Performed By: #### L 100.0100, L500.2500 ####[facility] [address] [place], [address] Potassium Normal 3.5-5.1 [facility] Comment on above: Result Comment: Canc elled via OM: Order cancelled - Patient discharged Performed By: #### L 100.0100, L500.2500 ####[facility] [address] [place], [address] Basic Metabolic Profile (BMP) Normal 136-145 [facility] Comment on above: Result Comment: Canc elled via OM: Order cancelled - Patient discharged Performed By: #### L 100.0100, L500.2500 ####[facility] [address] [place], [address] CBC W/Diff, Automatedon 07-1 Absolute Neut Normal 2.0-7.7 [facility] Comment on above: Result Comment: Canc elled via OM: Order cancelled - Patient discharged Performed By: #### L 100.0100, L500.2500 ####[facility] [address] [place], [address] HCT Normal 37-47 [facility] Comment on above: Result Comment: Canc elled via OM: Order cancelled - Patient discharged Performed By: #### L 100.0100, L500.2500 ####[facility] [address] [place], [address] HGB Normal 12.0-15.0 [facility] Comment on above: Result Comment: Canc elled via OM: Order cancelled - Patient discharged Performed By: #### L 100.0100, L500.2500 ####[facility] [address] [place], [address] MCH Normal 27.0-32.0 [facility] Comment on above: Result Comment: Canc elled via OM: Order cancelled - Patient discharged Performed By: #### L 100.0100, L500.2500 ####[facility] [address] [place], [address] MCHC Normal 32-36 [facility] Comment on above: Result Comment: Canc elled via OM: Order cancelled - Patient discharged Performed By: #### L 100.0100, L500.2500 ####[facility] [address] [place], [address] MCV Normal 81-99 [facility] Comment on above: Result Comment: Canc elled via OM: Order cancelled - Patient discharged Performed By: #### L 100.0100, L500.2500 ####[facility] [address] [place], [address] NEUT% Normal 47-70 [facility] Comment on above: Result Comment: Canc elled via OM: Order cancelled - Patient discharged Performed By: #### L 100.0100, L500.2500 ####[facility] [address] [place], [address] PLT Normal 150-450 [facility] Comment on above: Result Comment: Canc elled via OM: Order cancelled - Patient discharged Performed By: #### L 100.0100, L500.2500 ####[facility] [address] [place], [address] RBC Normal 4.2-5.4 [facility] Comment on above: Result Comment: Canc elled via OM: Order cancelled - Patient discharged Performed By: #### L 100.0100, L500.2500 ####[facility] [address] [place], [address] RDW CV Normal 11.6-14.6 [facility] Comment on above: Result Comment: Canc elled via OM: Order cancelled - Patient discharged Performed By: #### L 100.0100, L500.2500 ####[facility] [address] [place], [address] RDW SD Normal 35.1-43.9 [facility] Comment on above: Result Comment: Canc elled via OM: Order cancelled - Patient discharged Performed By: #### L 100.0100, L500.2500 ####[facility] [address] [place], [address] WBC Normal 4.4-11.0 [facility] Comment on above: Result Comment: Canc elled via OM: Order cancelled - Patient discharged Performed By: #### L 100.0100, L500.2500 ####[facility] [address] [place], [address] Basic Metabolic Profile (BMP )on 05-01-2024 BUN Normal 7-18 [facility] Comment on above: Result Comment: Canc elled via OM: Order cancelled - Patient discharged Performed By: #### L 500.2500, L100.0100 ####[facility] [address] [place], [address] BUN/CRE Normal 10-20 [facility] Comment on above: Result Comment: Canc elled via OM: Order cancelled - Patient discharged Performed By: #### L 500.2500, L100.0100 ####[facility] [address] [place], [address] CA,Total Normal 8.5-10.1 [facility] Comment on above: Result Comment: Canc elled via OM: Order cancelled - Patient discharged Performed By: #### L 500.2500, L100.0100 ####[facility] [address] [place], [address] CL Normal 98-107 [facility] Comment on above: Result Comment: Canc elled via OM: Order cancelled - Patient discharged Performed By: #### L 500.2500, L100.0100 ####[facility] [address] [place], [address] CO2 Normal 21.0-32.0 [facility] Comment on above: Result Comment: Canc elled via OM: Order cancelled - Patient discharged Performed By: #### L 500.2500, L100.0100 ####[facility] [address] [place], [address] CREAT,SERUM Normal 0.55-1.02 [facility] Comment on above: Result Comment: Canc elled via OM: Order cancelled - Patient discharged Performed By: #### L 500.2500, L100.0100 ####[facility] [address] [place], [address] EST GFR Normal >60 [facility] Comment on above: Result Comment: Canc elled via OM: Order cancelled - Patient discharged Performed By: #### L 500.2500, L100.0100 ####[facility] [address] [place], [address] EST GFR - AA Normal >60 [facility] Comment on above: Result Comment: Canc elled via OM: Order cancelled - Patient discharged Performed By: #### L 500.2500, L100.0100 ####[facility] [address] [place], [address] GAP Normal 5-15 [facility] Comment on above: Result Comment: Canc elled via OM: Order cancelled - Patient discharged Performed By: #### L 500.2500, L100.0100 ####[facility] [address] [place], [address] GLU Normal 74-106 [facility] Comment on above: Result Comment: Canc elled via OM: Order cancelled - Patient discharged Performed By: #### L 500.2500, L100.0100 ####[facility] [address] [place], [address] Potassium Normal 3.5-5.1 [facility] Comment on above: Result Comment: Canc elled via OM: Order cancelled - Patient discharged Performed By: #### L 500.2500, L100.0100 ####[facility] [address] [place], [address] Basic Metabolic Profile (BMP) Normal 136-145 [facility] Comment on above: Result Comment: Canc elled via OM: Order cancelled - Patient discharged Performed By: #### L 500.2500, L100.0100 ####[facility] [address] [place], [address] CBC W/Diff, Automatedon 07- Absolute Neut Normal 2.0-7.7 [facility] Comment on above: Result Comment: Canc elled via OM: Order cancelled - Patient discharged Performed By: #### L 500.2500, L100.0100 ####[facility] [address] [place], [address] HCT Normal 37-47 [facility] Comment on above: Result Comment: Canc elled via OM: Order cancelled - Patient discharged Performed By: #### L 500.2500, L100.0100 ####[facility] [address] [place], [address] HGB Normal 12.0-15.0 [facility] Comment on above: Result Comment: Canc elled via OM: Order cancelled - Patient discharged Performed By: #### L 500.2500, L100.0100 ####[facility] [address] [place], [address] MCH Normal 27.0-32.0 [facility] Comment on above: Result Comment: Canc elled via OM: Order cancelled - Patient discharged Performed By: #### L 500.2500, L100.0100 ####[facility] [address] [place], [address] MCHC Normal 32-36 [facility] Comment on above: Result Comment: Canc elled via OM: Order cancelled - Patient discharged Performed By: #### L 500.2500, L100.0100 ####[facility] [address] [place], [address] MCV Normal 81-99 [facility] Comment on above: Result Comment: Canc elled via OM: Order cancelled - Patient discharged Performed By: #### L 500.2500, L100.0100 ####[facility] [address] [place], [address] NEUT% Normal 47-70 [facility] Comment on above: Result Comment: Canc elled via OM: Order cancelled - Patient discharged Performed By: #### L 500.2500, L100.0100 ####[facility] [address] [place], [address] PLT Normal 150-450 [facility] Comment on above: Result Comment: Canc elled via OM: Order cancelled - Patient discharged Performed By: #### L 500.2500, L100.0100 ####[facility] [address] [place], [address] RBC Normal 4.2-5.4 [facility] Comment on above: Result Comment: Canc elled via OM: Order cancelled - Patient discharged Performed By: #### L 500.2500, L100.0100 ####[facility] [address] [place], [address] RDW CV Normal 11.6-14.6 [facility] Comment on above: Result Comment: Canc elled via OM: Order cancelled - Patient discharged Performed By: #### L 500.2500, L100.0100 ####[facility] [address] [place], [address] RDW SD Normal 35.1-43.9 [facility] Comment on above: Result Comment: Canc elled via OM: Order cancelled - Patient discharged Performed By: #### L 500.2500, L100.0100 ####[facility] [address] [place], [address] WBC Normal 4.4-11.0 [facility] Comment on above: Result Comment: Canc elled via OM: Order cancelled - Patient discharged Performed By: #### L 500.2500, L100.0100 ####[facility] [address] [place], [address] Basic Metabolic Profile (BMP )on 04-30-2024 BUN/CRE 18.6 RATIO Normal 10-20 [facility] Comment on above: Performed By: #### L 500.2500, L100.0100 ####[facility] [address] [place], [address] CA,Total 8.9 mg/dL Normal 8.5-10.1 [facility] Comment on above: Performed By: #### L 500.2500, L100.0100 ####[facility] [address] [place], [address] Chloride [Moles/Vol] 109 mmol/L High 98-107 [facility] Comment on above: Performed By: #### L 500.2500, L100.0100 ####[facility] [address] [place], [address] CO2 [Moles/Vol] 24.0 mmol/L Normal 21.0-32.0 [facility] Comment on above: Performed By: #### L 500.2500, L100.0100 ####[facility] [address] [place], [address] Creatinine [Mass/Vol] 0.48 mg/dL Low 0.55-1.02 [facility] Comment on above: Result Comment: The validity of the calculated GFR GFRAA in patients over70 years has not been determined. Clinical correlation isessential. Performed By: #### L 500.2500, L100.0100 ####[facility] [address] [place], [address] ECRCL 60.02 ml/min Normal [facility] Comment on above: Performed By: #### L 500.2500, L100.0100 ####[facility] [address] [place], [address] EST GFR - AA 164 mL/min Normal >60 [facility] Comment on above: Result Comment: Afri can Burmese GFR Calc Performed By: #### L 500.2500, L100.0100 ####[facility] [address] [place], [address] GAP 6 Normal 5-15 [facility] Comment on above: Performed By: #### L 500.2500, L100.0100 ####[facility] [address] [place], [address] GFR/1.73 sq M.predicted among non-blacks MDRD (S/P/Bld) [Vol rate/Area] 135 mL/min/{1.73_m2} Normal >60 [facility] Comment on above: Result Comment: Non- GFR Calc Performed By: #### L 500.2500, L100.0100 ####[facility] [address] [place], [address] Glucose [Mass/Vol] 109 mg/dL High 74-106 [facility] Comment on above: Result Comment: Fast ing Glucose result from 100 to 125 mg/dLsuggests IMPAIRED HOMEOSTASIS per A.D.A. criteria. Performed By: #### L 500.2500, L100.0100 ####[facility] [address] [place], [address] Potassium [Moles/Vol] 3.6 mmol/L Normal 3.5-5.1 [facility] Comment on above: Performed By: #### L 500.2500, L100.0100 ####[facility] [address] [place], [address] Sodium [Moles/Vol] 139 mmol/L Normal 136-145 [facility] Comment on above: Performed By: #### L 500.2500, L100.0100 ####[facility] [address] [place], [address] Urea nitrogen [Mass/Vol] 9 mg/dL Normal 7-18 [facility] Comment on above: Performed By: #### L 500.2500, L100.0100 ####[facility] [address] [place], [address] CBC W/Diff, Automatedon 07- Absolute Lymph 1.99 X10 3/uL Normal 0.83-4.51 [facility] Comment on above: Performed By: #### L 500.2500, L100.0100 ####[facility] [address] [place], [address] Absolute Neut 4.6 X10 3/uL Normal 2.0-7.7 [facility] Comment on above: Performed By: #### L 500.2500, L100.0100 ####[facility] [address] [place], [address] Basophils/100 WBC (Bld) 0.7 % Normal 0-1 [facility] [facility] Comment on above: Performed By: #### L 500.2500, L100.0100 ####[facility] [address] [place], [address] Eosinophils/100 WBC (Bld) 3.6 % Normal 0-5 [facility] Comment on above: Performed By: #### L 500.2500, L100.0100 ####[facility] [address] [place], [address] Erythrocyte distribution width (RBC) [Ratio] 15.1 % High 11.6-14.6 [facility] Comment on above: Performed By: #### L 500.2500, L100.0100 ####[facility] [address] [place], [address] Hematocrit (Bld) [Volume fraction] 31.5 % Low 37-47 [facility] Comment on above: Performed By: #### L 500.2500, L100.0100 ####[facility] [address] [place], [address] Hemoglobin (Bld) [Mass/Vol] 10.2 g/dL Low 12.0-15.0 [facility] Comment on above: Performed By: #### L 500.2500, L100.0100 ####[facility] [address] [place], [address] IG% 0.300 Normal 0.0-0.9 [facility] Comment on above: Result Comment: IG% - Immature Granulocytes (promyelocytes, myelocytes andmetamyelocytes) > 1% indicates that a LEFT SHIFT is Present. Performed By: #### L 500.2500, L100.0100 ####[facility] [address] [place], [address] Lymphocytes/100 WBC (Bld) 26.3 % Normal 19-41 [facility] Comment on above: Performed By: #### L 500.2500, L100.0100 ####[facility] [address] [place], [address] MCH (RBC) [Entitic mass] 28.3 pg Normal 27.0-32.0 [facility] Comment on above: Performed By: #### L 500.2500, L100.0100 ####[facility] [address] [place], [address] MCHC (RBC) [Mass/Vol] 32.4 g/dL Normal 32-36 [facility] Comment on above: Performed By: #### L 500.2500, L100.0100 ####[facility] [address] [place], [address] MCV (RBC) [Entitic vol] 87.5 fL Normal 81-99 [facility] Comment on above: Performed By: #### L 500.2500, L100.0100 ####[facility] [address] [place], [address] Monocytes/100 WBC (Bld) 7.9 % Normal 0-10 [facility] Comment on above: Performed By: #### L 500.2500, L100.0100 ####[facility] [address] [place], [address] Neutrophils/100 WBC (Bld) 61.2 % Normal 47-70 [facility] Comment on above: Performed By: #### L 500.2500, L100.0100 ####[facility] [address] [place], [address] Nucleated RBC (Bld) [#/Vol] 0 10*3/uL Normal 0-5 [facility] Comment on above: Performed By: #### L 500.2500, L100.0100 ####[facility] [address] [place], [address] Platelet mean volume (Bld) [Entitic vol] 9.5 fL Normal 6.2-12.0 [facility] Comment on above: Performed By: #### L 500.2500, L100.0100 ####[facility] [address] [place], [address] Platelets (Bld) [#/Vol] 420 10*3/uL Normal 150-450 [facility] Comment on above: Performed By: #### L 500.2500, L100.0100 ####[facility] [address] [place], [address] RBC (Bld) [#/Vol] 3.60 10*6/uL Low 4.2-5.4 [facility] Comment on above: Performed By: #### L 500.2500, L100.0100 ####[facility] [address] [place], [address] RDW SD 48.4 fl High 35.1-43.9 [facility] Comment on above: Performed By: #### L 500.2500, L100.0100 ####[facility] [address] [place], [address] WBC (Bld) [#/Vol] 7.6 10*3/uL Normal 4.4-11.0 [facility] Comment on above: Performed By: #### L 500.2500, L100.0100 ####[facility] [address] [place], [address] Discharge Instructionon 04-19 Discharge Instruction Normal [facility] Basic Metabolic Profile (BMP )on 04-29-2024 BUN/CRE 11.5 RATIO Normal 10-20 [facility] Comment on above: Performed By: #### L 501.2300, L501.5200, L100.0100, L500.2500 ####[facility] [address] [place], [address] CA,Total 9.5 mg/dL Normal 8.5-10.1 [facility] Comment on above: Performed By: #### L 501.2300, L501.5200, L100.0100, L500.2500 ####[facility] [address] [place], [address] Chloride [Moles/Vol] 107 mmol/L Normal 98-107 [facility] Comment on above: Performed By: #### L 501.2300, L501.5200, L100.0100, L500.2500 ####[facility] [address] [place], [address] CO2 [Moles/Vol] 23.0 mmol/L Normal 21.0-32.0 [facility] Comment on above: Performed By: #### L 501.2300, L501.5200, L100.0100, L500.2500 ####[facility] [address] [place], [address] Creatinine [Mass/Vol] 0.61 mg/dL Normal 0.55-1.02 [facility] Comment on above: Result Comment: The validity of the calculated GFR GFRAA in patients over70 years has not been determined. Clinical correlation isessential. Performed By: #### L 501.2300, L501.5200, L100.0100, L500.2500 ####[facility] [address] [place], [address] ECRCL 59.98 ml/min Normal [facility] Comment on above: Performed By: #### L 501.2300, L501.5200, L100.0100, L500.2500 ####[facility] [address] [place], [address] EST GFR - AA 125 mL/min Normal >60 [facility] Comment on above: Result Comment: Afri can Burmese GFR Calc Performed By: #### L 501.2300, L501.5200, L100.0100, L500.2500 ####[facility] [address] [place], [address] GAP 7 Normal 5-15 [facility] Comment on above: Performed By: #### L 501.2300, L501.5200, L100.0100, L500.2500 ####[facility] [address] [place], [address] GFR/1.73 sq M.predicted among non-blacks MDRD (S/P/Bld) [Vol rate/Area] 104 mL/min/{1.73_m2} Normal >60 [facility] Comment on above: Result Comment: Non- GFR Calc Performed By: #### L 501.2300, L501.5200, L100.0100, L500.2500 ####[facility] [address] [place], [address] Glucose [Mass/Vol] 113 mg/dL High 74-106 [facility] Comment on above: Result Comment: Fast ing Glucose result from 100 to 125 mg/dLsuggests IMPAIRED HOMEOSTASIS per A.D.A. criteria. Performed By: #### L 501.2300, L501.5200, L100.0100, L500.2500 ####[facility] [address] [place], [address] Potassium [Moles/Vol] 3.6 mmol/L Normal 3.5-5.1 [facility] Comment on above: Performed By: #### L 501.2300, L501.5200, L100.0100, L500.2500 ####[facility] [address] [place], [address] Sodium [Moles/Vol] 137 mmol/L Normal 136-145 [facility] Comment on above: Performed By: #### L 501.2300, L501.5200, L100.0100, L500.2500 ####[facility] [address] [place], [address] Urea nitrogen [Mass/Vol] 7 mg/dL Normal 7-18 [facility] Comment on above: Performed By: #### L 501.2300, L501.5200, L100.0100, L500.2500 ####[facility] [address] [place], [address] CBC W/Diff, Automatedon 04-19 Absolute Lymph 2.13 X10 3/uL Normal 0.83-4.51 [facility] Comment on above: Performed By: #### L 501.2300, L501.5200, L100.0100, L500.2500 ####[facility] [address] [place], [address] Absolute Neut 7.1 X10 3/uL Normal 2.0-7.7 [facility] Comment on above: Performed By: #### L 501.2300, L501.5200, L100.0100, L500.2500 ####[facility] [address] [place], [address] Basophils/100 WBC (Bld) 0.5 % Normal 0-1 [facility] Comment on above: Performed By: #### L 501.2300, L501.5200, L100.0100, L500.2500 ####[facility] [address] [place], [address] Eosinophils/100 WBC (Bld) 2.3 % Normal 0-5 [facility] Comment on above: Performed By: #### L 501.2300, L501.5200, L100.0100, L500.2500 ####[facility] [address] [place], [address] Erythrocyte distribution width (RBC) [Ratio] 15.2 % High 11.6-14.6 [facility] Comment on above: Performed By: #### L 501.2300, L501.5200, L100.0100, L500.2500 ####[facility] [address] [place], [address] Hematocrit (Bld) [Volume fraction] 34.7 % Low 37-47 [facility] Comment on above: Performed By: #### L 501.2300, L501.5200, L100.0100, L500.2500 ####[facility] [address] [place], [address] Hemoglobin (Bld) [Mass/Vol] 11.0 g/dL Low 12.0-15.0 [facility] Comment on above: Performed By: #### L 501.2300, L501.5200, L100.0100, L500.2500 ####[facility] [address] [place], [address] IG% 0.400 Normal 0.0-0.9 [facility] Comment on above: Result Comment: IG% - Immature Granulocytes (promyelocytes, myelocytes andmetamyelocytes) > 1% indicates that a LEFT SHIFT is Present. Performed By: #### L 501.2300, L501.5200, L100.0100, L500.2500 ####[facility] [address] [place], [address] Lymphocytes/100 WBC (Bld) 21.1 % Normal 19-41 [facility] Comment on above: Performed By: #### L 501.2300, L501.5200, L100.0100, L500.2500 ####[facility] [address] [place], [address] MCH (RBC) [Entitic mass] 27.5 pg Normal 27.0-32.0 [facility] Comment on above: Performed By: #### L 501.2300, L501.5200, L100.0100, L500.2500 ####[facility] [address] [place], [address] MCHC (RBC) [Mass/Vol] 31.7 g/dL Low 32-36 [facility] Comment on above: Performed By: #### L 501.2300, L501.5200, L100.0100, L500.2500 ####[facility] [address] [place], [address] MCV (RBC) [Entitic vol] 86.8 fL Normal 81-99 [facility] Comment on above: Performed By: #### L 501.2300, L501.5200, L100.0100, L500.2500 ####[facility] [address] [place], [address] Monocytes/100 WBC (Bld) 5.8 % Normal 0-10 [facility] Comment on above: Performed By: #### L 501.2300, L501.5200, L100.0100, L500.2500 ####[facility] [address] [place], [address] Neutrophils/100 WBC (Bld) 69.9 % Normal 47-70 [facility] Comment on above: Performed By: #### L 501.2300, L501.5200, L100.0100, L500.2500 ####[facility] [address] [place], [address] Nucleated RBC (Bld) [#/Vol] 0 10*3/uL Normal 0-5 [facility] Comment on above: Performed By: #### L 501.2300, L501.5200, L100.0100, L500.2500 ####[facility] [address] [place], [address] Platelet mean volume (Bld) [Entitic vol] 9.5 fL Normal 6.2-12.0 [facility] Comment on above: Performed By: #### L 501.2300, L501.5200, L100.0100, L500.2500 ####[facility] [address] [place], [address] Platelets (Bld) [#/Vol] 473 10*3/uL High 150-450 [facility] Comment on above: Performed By: #### L 501.2300, L501.5200, L100.0100, L500.2500 ####[facility] [address] [place], [address] RBC (Bld) [#/Vol] 4.00 10*6/uL Low 4.2-5.4 [facility] Comment on above: Performed By: #### L 501.2300, L501.5200, L100.0100, L500.2500 ####[facility] [address] [place], [address] RDW SD 48.3 fl High 35.1-43.9 [facility] Comment on above: Performed By: #### L 501.2300, L501.5200, L100.0100, L500.2500 ####[facility] [address] [place], [address] WBC (Bld) [#/Vol] 10.1 10*3/uL Normal 4.4-11.0 [facility] Comment on above: Performed By: #### L 501.2300, L501.5200, L100.0100, L500.2500 ####[facility] [address] [place], [address] Magnesiumon 04-29-2024 Magnesium [Mass/Vol] 2.1 mg/dL Normal 1.6-2.6 [facility] Comment on above: Performed By: #### L 501.2300, L501.5200, L100.0100, L500.2500 ####[facility] [address] [place], [address] Phosphoruson 04-29-2024 Phosphate [Mass/Vol] 2.6 mg/dL Normal 2.5-4.9 [facility] Comment on above: Performed By: #### L 501.2300, L501.5200, L100.0100, L500.2500 ####[facility] [address] [place], [address] CBC W/Diff, Automatedon 07- 0-2023 Absolute Lymph 1.66 X10 3/uL Normal 0.83-4.51 [facility] Comment on above: Performed By: #### L 100.0100, L500.4050 ####[facility] [address] [place], [address] Absolute Neut 7.0 X10 3/uL Normal 2.0-7.7 [facility] Comment on above: Performed By: #### L 100.0100, L500.4050 ####[facility] [address] [place], [address] Basophils/100 WBC (Bld) 0.5 % Normal 0-1 [facility] Comment on above: Performed By: #### L 100.0100, L500.4050 ####[facility] [address] [place], [address] Eosinophils/100 WBC (Bld) 2.7 % Normal 0-5 [facility] Comment on above: Performed By: #### L 100.0100, L500.4050 ####[facility] [address] [place], [address] Erythrocyte distribution width (RBC) [Ratio] 15.3 % High 11.6-14.6 [facility] Comment on above: Performed By: #### L 100.0100, L500.4050 ####[facility] [address] [place], [address] Hematocrit (Bld) [Volume fraction] 31.9 % Low 37-47 [facility] Comment on above: Performed By: #### L 100.0100, L500.4050 ####[facility] [address] [place], [address] Hemoglobin (Bld) [Mass/Vol] 10.2 g/dL Low 12.0-15.0 [facility] Comment on above: Performed By: #### L 100.0100, L500.4050 ####[facility] [address] [place], [address] IG% 0.400 Normal 0.0-0.9 [facility] Comment on above: Result Comment: IG% - Immature Granulocytes (promyelocytes, myelocytes andmetamyelocytes) > 1% indicates that a LEFT SHIFT is Present. Performed By: #### L 100.0100, L500.4050 ####[facility] [address] [place], [address] Lymphocytes/100 WBC (Bld) 17.0 % Low 19-41 [facility] Comment on above: Performed By: #### L 100.0100, L500.4050 ####[facility] [address] [place], [address] MCH (RBC) [Entitic mass] 28.0 pg Normal 27.0-32.0 [facility] Comment on above: Performed By: #### L 100.0100, L500.4050 ####[facility] [address] [place], [address] MCHC (RBC) [Mass/Vol] 32.0 g/dL Normal 32-36 [facility] Comment on above: Performed By: #### L 100.0100, L500.4050 ####[facility] [address] [place], [address] MCV (RBC) [Entitic vol] 87.6 fL Normal 81-99 [facility] Comment on above: Performed By: #### L 100.0100, L500.4050 ####[facility] [address] [place], [address] Monocytes/100 WBC (Bld) 8.3 % Normal 0-10 [facility] Comment on above: Performed By: #### L 100.0100, L500.4050 ####[facility] [address] [place], [address] Neutrophils/100 WBC (Bld) 71.1 % High 47-70 [facility] Comment on above: Performed By: #### L 100.0100, L500.4050 ####[facility] [address] [place], [address] Nucleated RBC (Bld) [#/Vol] 0 10*3/uL Normal 0-5 [facility] Comment on above: Performed By: #### L 100.0100, L500.4050 ####[facility] [address] [place], [address] Platelet mean volume (Bld) [Entitic vol] 9.5 fL Normal 6.2-12.0 [facility] Comment on above: Performed By: #### L 100.0100, L500.4050 ####[facility] [address] [place], [address] Platelets (Bld) [#/Vol] 432 10*3/uL Normal 150-450 [facility] Comment on above: Performed By: #### L 100.0100, L500.4050 ####[facility] [address] [place], [address] RBC (Bld) [#/Vol] 3.64 10*6/uL Low 4.2-5.4 [facility] Comment on above: Performed By: #### L 100.0100, L500.4050 ####[facility] [address] [place], [address] RDW SD 49.2 fl High 35.1-43.9 [facility] Comment on above: Performed By: #### L 100.0100, L500.4050 ####[facility] [address] [place], [address] WBC (Bld) [#/Vol] 9.8 10*3/uL Normal 4.4-11.0 [facility] Comment on above: Performed By: #### L 100.0100, L500.4050 ####[facility] [address] [place], [address] Comprehensive Metabolic Prof [facility] 04-28-2024 Albumin [Mass/Vol] 3.3 g/dL Normal 3.2-5.0 [facility] Comment on above: Performed By: #### L 100.0100, L500.4050 ####[facility] [address] [place], [address] Albumin/Globulin [Mass ratio] 1.0 {ratio} Normal 0.9-2.4 [facility] Comment on above: Performed By: #### L 100.0100, L500.4050 ####[facility] [address] [place], [address] ALK P 85 U/L Normal 45-117 [facility] Comment on above: Performed By: #### L 100.0100, L500.4050 ####[facility] [address] [place], [address] ALT [Catalytic activity/Vol] 18 U/L Normal 13-56 [facility] Comment on above: Performed By: #### L 100.0100, L500.4050 ####[facility] [address] [place], [address] AST [Catalytic activity/Vol] 14 U/L Low 15-37 [facility] Comment on above: Performed By: #### L 100.0100, L500.4050 ####[facility] [address] [place], [address] Bilirubin [Mass/Vol] 0.40 mg/dL Normal 0.20-1.00 [facility] Comment on above: Result Comment: For patients on eltrombopag therapy, use of Dimension [place] TBIL is not recommended. Performed By: #### L 100.0100, L500.4050 ####[facility] [address] [place], [address] BUN/CRE 16.0 RATIO Normal 10-20 [facility] Comment on above: Performed By: #### L 100.0100, L500.4050 ####[facility] [address] [place], [address] CA,Total 8.8 mg/dL Normal 8.5-10.1 [facility] Comment on above: Performed By: #### L 100.0100, L500.4050 ####[facility] [address] [place], [address] Chloride [Moles/Vol] 110 mmol/L High 98-107 [facility] Comment on above: Performed By: #### L 100.0100, L500.4050 ####[facility] [address] [place], [address] CO2 [Moles/Vol] 24.0 mmol/L Normal 21.0-32.0 [facility] Comment on above: Performed By: #### L 100.0100, L500.4050 ####[facility] [address] [place], [address] Creatinine [Mass/Vol] 0.62 mg/dL Normal 0.55-1.02 [facility] Comment on above: Result Comment: The validity of the calculated GFR GFRAA in patients over70 years has not been determined. Clinical correlation isessential. Performed By: #### L 100.0100, L500.4050 ####[facility] [address] [place], [address] ECRCL 59.98 ml/min Normal [facility] Comment on above: Performed By: #### L 100.0100, L500.4050 ####[facility] [address] [place], [address] EST GFR - AA 122 mL/min Normal >60 [facility] Comment on above: Result Comment: Afri can Burmese GFR Calc Performed By: #### L 100.0100, L500.4050 ####[facility] [address] [place], [address] GAP 5 Normal 5-15 [facility] Comment on above: Performed By: #### L 100.0100, L500.4050 ####[facility] [address] [place], [address] GFR/1.73 sq M.predicted among non-blacks MDRD (S/P/Bld) [Vol rate/Area] 101 mL/min/{1.73_m2} Normal >60 [facility] Comment on above: Result Comment: Non- GFR Calc Performed By: #### L 100.0100, L500.4050 ####[facility] [address] [place], [address] Globulin (S) [Mass/Vol] 3.2 g/dL Normal 2.2-4.2 [facility] Comment on above: Performed By: #### L 100.0100, L500.4050 ####[facility] [address] [place], [address] Glucose [Mass/Vol] 106 mg/dL Normal 74-106 [facility] Comment on above: Result Comment: Fast ing Glucose result from 100 to 125 mg/dLsuggests IMPAIRED HOMEOSTASIS per A.D.A. criteria. Performed By: #### L 100.0100, L500.4050 ####[facility] [address] [place], [address] Potassium [Moles/Vol] 3.7 mmol/L Normal 3.5-5.1 [facility] Comment on above: Performed By: #### L 100.0100, L500.4050 ####[facility] [address] [place], [address] Sodium [Moles/Vol] 139 mmol/L Normal 136-145 [facility] Comment on above: Performed By: #### L 100.0100, L500.4050 ####[facility] [address] [place], [address] T PROT 6.5 g/dL Normal 6.4-8.2 [facility] Comment on above: Performed By: #### L 100.0100, L500.4050 ####[facility] [address] [place], [address] Urea nitrogen [Mass/Vol] 10 mg/dL Normal 7-18 [facility] Comment on above: Performed By: #### L 100.0100, L500.4050 ####[facility] [address] [place], [address] Consultation - Orthopedicson 04-28-2024 Consultation - Orthopedics Normal [facility] Basic Metabolic Profile (BMP )on 04-27-2024 BUN/CRE 17.6 RATIO Normal 10-20 [facility] Comment on above: Performed By: #### L 100.0100, L500.2500 ####[facility] [address] [place], [address] CA,Total 9.5 mg/dL Normal 8.5-10.1 [facility] Comment on above: Performed By: #### L 100.0100, L500.2500 ####[facility] [address] [place], [address] Chloride [Moles/Vol] 106 mmol/L Normal 98-107 [facility] Comment on above: Performed By: #### L 100.0100, L500.2500 ####[facility] [address] [place], [address] CO2 [Moles/Vol] 28.0 mmol/L Normal 21.0-32.0 [facility] Comment on above: Performed By: #### L 100.0100, L500.2500 ####[facility] [address] [place], [address] Creatinine [Mass/Vol] 0.68 mg/dL Normal 0.55-1.02 [facility] Comment on above: Result Comment: The validity of the calculated GFR GFRAA in patients over70 years has not been determined. Clinical correlation isessential. Performed By: #### L 100.0100, L500.2500 ####[facility] [address] [place], [address] ECRCL 60.10 ml/min Normal [facility] Comment on above: Performed By: #### L 100.0100, L500.2500 ####[facility] [address] [place], [address] EST GFR - AA 111 mL/min Normal >60 [facility] Comment on above: Result Comment: Afri can Burmese GFR Calc Performed By: #### L 100.0100, L500.2500 ####[facility] [address] [place], [address] GAP 4 Low 5-15 [facility] Comment on above: Performed By: #### L 100.0100, L500.2500 ####[facility] [id number] [place], [address] GFR/1.73 sq M.predicted among non-blacks MDRD (S/P/Bld) [Vol rate/Area] 92 mL/min/{1.73_m2} Normal >60 [facility] Comment on above: Result Comment: Non- GFR Calc Performed By: #### L 100.0100, L500.2500 ####[facility] [address] [place], [address] Glucose [Mass/Vol] 96 mg/dL Normal 74-106 [facility] Comment on above: Performed By: #### L 100.0100, L500.2500 ####[facility] [address] [place], [address] Potassium [Moles/Vol] 3.8 mmol/L Normal 3.5-5.1 [facility] Comment on above: Performed By: #### L 100.0100, L500.2500 ####[facility] [address] [place], [address] Sodium [Moles/Vol] 138 mmol/L Normal 136-145 [facility] Comment on above: Performed By: #### L 100.0100, L500.2500 ####[facility] [address] [place], [address] Urea nitrogen [Mass/Vol] 12 mg/dL Normal 7-18 [facility] Comment on above: Performed By: #### L 100.0100, L500.2500 ####[facility] [address] [place], [address] CBC W/Diff, Automatedon 07-0 9-2023 Absolute Lymph 1.95 X10 3/uL Normal 0.83-4.51 [facility] Comment on above: Performed By: #### L 100.0100, L500.2500 ####[facility] [address] [place], [address] Absolute Neut 6.7 X10 3/uL Normal 2.0-7.7 [facility] Comment on above: Performed By: #### L 100.0100, L500.2500 ####[facility] [address] [place], [address] Basophils/100 WBC (Bld) 0.6 % Normal 0-1 [facility] Comment on above: Performed By: #### L 100.0100, L500.2500 ####[facility] [address] [place], [address] Eosinophils/100 WBC (Bld) 1.6 % Normal 0-5 [facility] Comment on above: Performed By: #### L 100.0100, L500.2500 ####[facility] [address] [place], [address] Erythrocyte distribution width (RBC) [Ratio] 15.4 % High 11.6-14.6 [facility] Comment on above: Performed By: #### L 100.0100, L500.2500 ####[facility] [address] [place], [address] Hematocrit (Bld) [Volume fraction] 33.7 % Low 37-47 [facility] Comment on above: Performed By: #### L 100.0100, L500.2500 ####[facility] [address] [place], [address] Hemoglobin (Bld) [Mass/Vol] 10.7 g/dL Low 12.0-15.0 [facility] Comment on above: Performed By: #### L 100.0100, L500.2500 ####[facility] [address] [place], [address] IG% 0.500 Normal 0.0-0.9 [facility] Comment on above: Result Comment: IG% - Immature Granulocytes (promyelocytes, myelocytes andmetamyelocytes) > 1% indicates that a LEFT SHIFT is Present. Performed By: #### L 100.0100, L500.2500 ####[facility] [address] [place], [address] Lymphocytes/100 WBC (Bld) 19.9 % Normal 19-41 [facility] Comment on above: Performed By: #### L 100.0100, L500.2500 ####[facility] [address] [place], [address] MCH (RBC) [Entitic mass] 27.4 pg Normal 27.0-32.0 [facility] Comment on above: Performed By: #### L 100.0100, L500.2500 ####[facility] [address] [place], [address] MCHC (RBC) [Mass/Vol] 31.8 g/dL Low 32-36 [facility] Comment on above: Performed By: #### L 100.0100, L500.2500 ####[facility] [address] [place], [address] MCV (RBC) [Entitic vol] 86.2 fL Normal 81-99 [facility] Comment on above: Performed By: #### L 100.0100, L500.2500 ####[facility] [address] [place], [address] Monocytes/100 WBC (Bld) 9.0 % Normal 0-10 [facility] Comment on above: Performed By: #### L 100.0100, L500.2500 ####[facility] [address] [place], [address] Neutrophils/100 WBC (Bld) 68.4 % Normal 47-70 [facility] Comment on above: Performed By: #### L 100.0100, L500.2500 ####[facility] [address] [place], [address] Nucleated RBC (Bld) [#/Vol] 0 10*3/uL Normal 0-5 [facility] Comment on above: Performed By: #### L 100.0100, L500.2500 ####[facility] [address] [place], [address] Platelet mean volume (Bld) [Entitic vol] 9.1 fL Normal 6.2-12.0 [facility] Comment on above: Performed By: #### L 100.0100, L500.2500 ####[facility] [address] [place], [address] Platelets (Bld) [#/Vol] 496 10*3/uL High 150-450 [facility] Comment on above: Performed By: #### L 100.0100, L500.2500 ####[facility] [address] [place], [address] RBC (Bld) [#/Vol] 3.91 10*6/uL Low 4.2-5.4 [facility] Comment on above: Performed By: #### L 100.0100, L500.2500 ####[facility] [address] [place], [address] RDW SD 48.1 fl High 35.1-43.9 [facility] Comment on above: Performed By: #### L 100.0100, L500.2500 ####[facility] [address] [place], [address] WBC (Bld) [#/Vol] 9.8 10*3/uL Normal 4.4-11.0 [facility] Comment on above: Performed By: #### L 100.0100, L500.2500 ####[facility] [address] [place], [address] CRPon 04-27-2024 C-REACTIVE PROT 77.00 mg/L High 0.0-3.0 [facility] Comment on above: Order Comment: Comme nts: May add to ED labs Result Comment: C-Re active Protein (CRP) provides useful information for thediagnosis, therapy and monitoring of inflammatory processesand associated diseases. For the evaluation of Relative Riskfor Cardiovascular Disease, a High Sensitivity CRP (HSCRP)should be ordered. Performed By: #### L 501.6710, L101.9900 ####[facility] [address] [place], [address] Emergency Department Summary on 04-27-2024 Emergency Department Summary Normal [facility] Erythrocyte Sed Rateon 04-27 SED RATE 26 mm/hr Normal 0-30 [facility] Comment on above: Performed By: #### L 501.6710, L101.9900 ####[facility] [address] [place], [address] H AND P Exam - Hospitaliston 04-27-2024 H&P Exam - Hospitalist Normal [facility] Hand Min 3 Viewson Hand Min 3 Views Normal [facility] Radiation Oncology Visiton 0 04-14-2024 Radiation Oncology Visit Normal [facility] Absolute lymphocyte countOrd ered By: Melissa Stinson on 02-07-2024 Lymphocytes Auto (Unsp spec) [#/Vol] 1.54 10*3/uL 0.83-4.51 [facility] Automated lymphocyte count a s percentage of total leukocytesOrdered By: Melissa Stinson on 02-07-2024 Lymphocytes/100 WBC Auto (Unsp spec) 11.4 % 19-41 [facility] Basophil percentageOrdered B y: Melissa Stinson on 02-07-2024 Basophils/100 WBC (Bld) 0.1 % 0-1 [facility] Chloride [Moles/Vol] 109 mmol/L 98-107 [facility] Eosinophils/100 WBC (Bld) 0.0 % 0-5 [facility] Glucose [Mass/Vol] 136 mg/dL 74-106 [facility] Comment on above: Fasting Glucose resu lt greater than or equal to 126 mg/dL suggests DIABETES MELLITUS per A.D.A. criteria. Hemoglobin (Bld) [Mass/Vol] 10.8 g/dL 12.0-15.0 [facility] Monocytes/100 WBC (Bld) 5.8 % 0-10 [facility] Neutrophils (Bld) [#/Vol] 11.1 10*3/uL 2.0-7.7 [facility] Neutrophils/100 WBC (Bld) 82.0 % 47-70 [facility] Potassium [Moles/Vol] 3.9 mmol/L 3.5-5.1 [facility] Sodium [Moles/Vol] 139 mmol/L 136-145 [facility] WBC (Bld) [#/Vol] 13.6 10*3/uL 4.4-11.0 [facility] Determination of erythrocyte mean corpuscular volume (MCV)Ordered By: Melissa Stinson on 02-07-2024 MCV (RBC) [Entitic vol] 89.7 fL 81-99 [facility] Erythrocyte distribution wid th ratioOrdered By: [facility] on 02-07-2024 Erythrocyte distribution width (RBC) [Ratio] 16.2 % 11.6-14.6 [facility] Erythrocyte distribution wid th standard deviationOrdered By: [facility] on 02-07-2024 Erythrocyte distribution width (RBC) [Entitic vol] 53.4 fL 35.1-43.9 [facility] Hematocrit Auto (Bld) [Volum e fraction]Ordered By: [facility] Milad on 02-07-2024 Hematocrit (Bld) [Volume fraction] 34.0 % 37-47 [facility] Immature granulocytes/100 WB C Auto (Bld)Ordered By: Melissa Stinson on 02-07-2024 Immature granulocytes/100 WBC (Bld) 0.700 % 0.0-0.9 [facility] Comment on above: IG% - Immature Granu locytes (promyelocytes, myelocytes and metamyelocytes) > 1% indicates that a LEFT SHIFT is Present. Laboratory - Chemistry and C hemistry - challengeOrdered By: Melissa Stinson on 02-07-2024 CO2 [Moles/Vol] 26.0 mmol/L 21.0-32.0 [facility] Urea nitrogen/Creatinine [Mass ratio] 12.8 mg/mg 10-20 [facility] Laboratory - Hematology and Cell countsOrdered By: Melissa Stinson on 02-07-2024 MCH (RBC) [Entitic mass] 28.5 pg 27.0-32.0 [facility] MCHC (RBC) [Mass/Vol] 31.8 g/dL 32-36 [facility] Nucleated RBC/100 WBC (Bld) [Ratio] 0 % 0-5 [facility] Platelet mean volume (Bld) [Entitic vol] 10.0 fL 6.2-12.0 [facility] Platelets (Bld) [#/Vol] 351 10*3/uL 150-450 [facility] No Panel InformationOrdered By: Melissa Stinson on 02-07-2024 Estimated Creatinine Clearance Calc 58.90 ml/min [facility] Estimated GFR (MDRD) Amer 143 mL/min >60 [facility] Comment on above: GFR Calc Estimated GFR (MDRD) Non-Af Amer 118 mL/min >60 [facility] Comment on above: Non- GFR Calc RBC Auto (Bld) [#/Vol]Ordere d By: Melissa Stinson on 02-07-2024 RBC (Bld) [#/Vol] 3.79 10*6/uL 4.2-5.4 [facility] Serum or plasma calcium teddy urement (mass/volume)Ordered By: Melissa Stinson on 02-07-2024 Calcium [Mass/Vol] 8.7 mg/dL 8.5-10.1 [facility] Serum or plasma creatinine m easurement (mass/volume)Ordered By: Melissa Stinson on 02-07-2024 Creatinine [Mass/Vol] 0.54 mg/dL 0.55-1.02 [facility] Comment on above: The validity of the calculated GFR & GFRAA in patients over 70 years has not been determined. Clinical correlation is essential. Serum or plasma urea nitroge n measurement (mass/volume)Ordered By: Melissa Stinson on 02-07-2024 Urea nitrogen [Mass/Vol] 7 mg/dL 7-18 [facility] Thin prep Papanicolaou smear with manual screeningOrdered By: Melissa Stinson on 02-07-2024 Thin prep Papanicolaou smear with manual screening 4 5-15 [facility] Absolute lymphocyte countOrd ered By: Jose Garzon on 01-28-2024 Lymphocytes Auto (Unsp spec) [#/Vol] 1.94 10*3/uL 0.83-4.51 [facility] Automated lymphocyte count a s percentage of total leukocytesOrdered By: Jose Garzon on 01-28-2024 Lymphocytes/100 WBC Auto (Unsp spec) 21.1 % 19-41 [facility] Basophil percentageOrdered B y: Jose Garzon on 01-28-2024 Basophil percentage 0-5 SEEN /hpf 0-5 [facility] Basophils/100 WBC (Bld) 0.7 % 0-1 [facility] Bilirubin [Mass/Vol] 0.30 mg/dL 0.20-1.00 [facility] Comment on above: For patients on eltr ombopag therapy, use of Dimension [place] TBIL is not recommended. Chloride [Moles/Vol] 107 mmol/L 98-107 [facility] Cholesterol [Mass/Vol] 184 mg/dL <200 [facility] Comment on above: <200 mg/dL Desirable 200-240 mg/dL Borderline >240 mg/dL High Risk Eosinophils/100 WBC (Bld) 1.3 % 0-5 [facility] Glucose [Mass/Vol] 104 mg/dL 74-106 [facility] Comment on above: Fasting Glucose resu lt from 100 to 125 mg/dL suggests IMPAIRED HOMEOSTASIS per A.D.A. criteria. Hemoglobin (Bld) [Mass/Vol] 11.9 g/dL 12.0-15.0 [facility] Monocytes/100 WBC (Bld) 6.2 % 0-10 [facility] Neutrophils (Bld) [#/Vol] 6.5 10*3/uL 2.0-7.7 [facility] Neutrophils/100 WBC (Bld) 70.3 % 47-70 [facility] Potassium [Moles/Vol] 4.1 mmol/L 3.5-5.1 [facility] Protein [Mass/Vol] 7.2 g/dL 6.4-8.2 [facility] Sodium [Moles/Vol] 139 mmol/L 136-145 [facility] Triglyceride [Mass/Vol] 88 mg/dL <199 [facility] Comment on above: The drugs N-Acetylcy steine and Metamizole may falsely depress this assay.Serum Triglycerides Reference Interval Normal <150 mg/dL Borderline high 150 - 199 mg/dL High 200 - 499 mg/dL Very High > or = 500 mg/dL WBC (Bld) [#/Vol] 9.2 10*3/uL 4.4-11.0 [facility] Bilirubin Test strip Ql (U)O rdered By: Jose Garzon on 01-28-2024 Bilirubin Ql (U) Negative Negative [facility] Determination of erythrocyte mean corpuscular volume (MCV)Ordered By: Jose Garzon on 01-28-2024 MCV (RBC) [Entitic vol] 89.6 fL 81-99 [facility] Erythrocyte distribution wid th ratioOrdered By: Jose Garzon on 01-28-2024 Erythrocyte distribution width (RBC) [Ratio] 16.1 % 11.6-14.6 [facility] Erythrocyte distribution wid th standard deviationOrdered By: Jose Garzon on 01-28-2024 Erythrocyte distribution width (RBC) [Entitic vol] 52.9 fL 35.1-43.9 [facility] Hematocrit Auto (Bld) [Volum e fraction]Ordered By: Jose Garzon on 01-28-2024 Hematocrit (Bld) [Volume fraction] 37.8 % 37-47 [facility] Immature granulocytes/100 WB C Auto (Bld)Ordered By: Jose Garzon on 01-28-2024 Immature granulocytes/100 WBC (Bld) 0.400 % 0.0-0.9 [facility] Comment on above: IG% - Immature Granu locytes (promyelocytes, myelocytes and metamyelocytes) > 1% indicates that a LEFT SHIFT is Present. Ketones Test strip Ql (U)Ord ered By: Jose Garzon on 01-28-2024 Ketones Ql (U) Negative Negative [facility] Laboratory - Chemistry and C hemistry - challengeOrdered By: Jose Garzon on 01-28-2024 Albumin/Globulin [Mass ratio] 1.1 {ratio} 0.9-2.4 [facility] ALP [Catalytic activity/Vol] 74 U/L 45-117 [facility] ALT [Catalytic activity/Vol] 29 U/L 13-56 [facility] Cholesterol in HDL [Mass/Vol] 58 mg/dL >40 [facility] Comment on above: The drugs N-Acetylcy steine and Metamizole may falsely depress this assay. Reference Range HDL <40 mg/dL Low HDL Cholesterol HDL >or= 60 mg/dL High HDL Cholesterol Cholesterol in LDL [Mass/Vol] 108 mg/dL 0-130 [facility] CO2 [Moles/Vol] 26.0 mmol/L 21.0-32.0 [facility] Globulin (S) [Mass/Vol] 3.5 g/dL 2.2-4.2 [facility] Magnesium [Mass/Vol] 2.1 mg/dL 1.6-2.6 [facility] Urea nitrogen/Creatinine [Mass ratio] 19.4 mg/mg 10-20 [facility] Laboratory - Hematology and Cell countsOrdered By: Jose Garzon on 01-28-2024 MCH (RBC) [Entitic mass] 28.2 pg 27.0-32.0 [facility] MCHC (RBC) [Mass/Vol] 31.5 g/dL 32-36 [facility] Nucleated RBC/100 WBC (Bld) [Ratio] 0 % 0-5 [facility] Platelet mean volume (Bld) [Entitic vol] 9.9 fL 6.2-12.0 [facility] Platelets (Bld) [#/Vol] 407 10*3/uL 150-450 [facility] Mucus LM Ql (Urine sed)Order ed By: Jose Garzon on 01-28-2024 Mucus Ql (Urine sed) 0 SEEN /hpf [facility] Nitrite Test strip Ql (U)Ord ered By: Jose Garzon on 01-28-2024 Nitrite Ql (U) Negative Negative [facility] No Panel InformationOrdered By: Jose Garzon on 01-28-2024 Estimated GFR (MDRD) Amer 89 mL/min >60 [facility] Comment on above: GFR Calc Estimated GFR (MDRD) Non-Af Amer 73 mL/min >60 [facility] Comment on above: Non- GFR Calc Urine RBC 0 SEEN /hpf 0-5 [facility] Vitamin D 25-Hydroxy 51.6 ng/mL [facility] Comment on above: Vitamin D 25(OH) Sta tus Range Deficiency <20 ng/mL (50nmol/L) Insufficiency 20 - 30 ng/mL (50 - 75 nmol/L) Sufficiency 30 - 100 ng/mL (75 - 250 nmol/L) Toxicity >100 ng/mL (>250 nmol/L) VLDL Cholesterol 18 mg/dL 5-40 [facility] Protein Test strip Ql (U)Ord ered By: Jose Garzon on 01-28-2024 Protein Ql (U) Negative Negative [facility] RBC Auto (Bld) [#/Vol]Ordere d By: Jose Garzon on 01-28-2024 RBC (Bld) [#/Vol] 4.22 10*6/uL 4.2-5.4 [facility] Serum or plasma calcium teddy urement (mass/volume)Ordered By: Jose Garzon on 01-28-2024 Calcium [Mass/Vol] 9.4 mg/dL 8.5-10.1 [facility] Serum or plasma creatinine m easurement (mass/volume)Ordered By: Jose Garzon on 01-28-2024 Creatinine [Mass/Vol] 0.82 mg/dL 0.55-1.02 [facility] Comment on above: The validity of the calculated GFR & GFRAA in patients over 70 years has not been determined. Clinical correlation is essential. Serum or plasma thyroid stim ulating hormone (TSH) measurement (units/volume)Ordered By: Jose Garzon on 01-28-2024 TSH Qn 0.81 uIU/mL 0.358-3.74 [facility] Serum or plasma urea nitroge n measurement (mass/volume)Ordered By: Jose Garzon on 01-28-2024 Urea nitrogen [Mass/Vol] 16 mg/dL 7-18 [facility] Squamous epithelial cells de tection in urine sediment by light microscopyOrdered By: Jose Garzon on 01-28-2024 Epithelial cells.squamous LM Ql (Urine sed) 0-5 SEEN /hpf 5-10 [facility] Thin prep Papanicolaou smear with manual screeningOrdered By: Jose Garzon on 01-28-2024 Thin prep Papanicolaou smear with manual screening 3.7 g/dL 3.2-5.0 [facility] Thin prep Papanicolaou smear with manual screening 21 U/L 15-37 [facility] Thin prep Papanicolaou smear with manual screening 6 5-15 [facility] Urine blood detectionOrdered By: Jose Garzon on 01-28-2024 RBC Ql (U) 10 /ul Negative [facility] Urine clarityOrdered By: Jcarlos Garzon on 01-28-2024 Clarity (U) Clear Clear [facility] Urine color determinationOrd ered By: Jose Garzon on 01-28-2024 Color (U) Yellow Yellow [facility] Urine glucose detectionOrder ed By: Jose Garzon on 01-28-2024 Glucose Ql (U) Normal mg/dl Normal [facility] Urine leukocyte esterase det ection by dipstickOrdered By: Jose Garzon on 01-28-2024 Leukocyte esterase Test strip Ql (U) 25 /ul Negative [facility] Urine pHOrdered By: Jose meza on 01-28-2024 pH (U) 6.0 [pH] 5.0 - 8.0 [facility] Urine sediment bacteria coun t by microscopy (number/high power field)Ordered By: Jose Garzon on 01-28-2024 Bacteria LM.HPF (Urine sed) [#/Area] 0 /[HPF] None Seen [facility] Urine specific gravity measu rementOrdered By: Jose Garzon on 01-28-2024 Specific gravity (U) [Rel density] 1.015 1.002-1.030 [facility] Urine urobilinogen measureme ntOrdered By: Jose Garzon on 01-28-2024 Urobilinogen Ql (U) Normal mg/dl Normal [facility] Laboratory - Microbiology an d Antimicrobial susceptibilityOrdered By: Jadon Grant on 12-28-2023 SARS-CoV-2 (COVID-19) RNA LATONIA+probe Ql (Unsp spec) [facility] Basophil percentageOrdered B y: Melissa Stinson on 12-17-2023 Basophil percentage < 1.0 mg/dL 0.55-1.02 [facility] No Panel InformationOrdered By: Melissa Stinson on 12-17-2023 Bedside Estimated GFR (eGFR) > 60.0000 mL/min >60 [facility] Absolute lymphocyte countOrd ered By: Dillan Pembertonjesus on 12-15-2023 Lymphocytes Auto (Unsp spec) [#/Vol] 2.23 10*3/uL 0.83-4.51 [facility] Automated lymphocyte count a s percentage of total leukocytesOrdered By: Dillan Cristina on 12-15-2023 Lymphocytes/100 WBC Auto (Unsp spec) 35.7 % 19-41 [facility] Basophil percentageOrdered B y: Dillan Pembertonjesus on 12-15-2023 Basophils/100 WBC (Bld) 1.0 % 0-1 [facility] Bilirubin [Mass/Vol] 0.30 mg/dL 0.20-1.00 [facility] Comment on above: For patients on eltr ombopag therapy, use of Dimension [place] TBIL is not recommended. Chloride [Moles/Vol] 109 mmol/L 98-107 [facility] Eosinophils/100 WBC (Bld) 0.5 % 0-5 [facility] Glucose [Mass/Vol] 113 mg/dL 74-106 [facility] Comment on above: Fasting Glucose resu lt from 100 to 125 mg/dL suggests IMPAIRED HOMEOSTASIS per A.D.A. criteria. Hemoglobin (Bld) [Mass/Vol] 12.5 g/dL 12.0-15.0 [facility] Monocytes/100 WBC (Bld) 6.9 % 0-10 [facility] Neutrophils (Bld) [#/Vol] 3.5 10*3/uL 2.0-7.7 [facility] Neutrophils/100 WBC (Bld) 55.7 % 47-70 [facility] Potassium [Moles/Vol] 4.3 mmol/L 3.5-5.1 [facility] Protein [Mass/Vol] 7.5 g/dL 6.4-8.2 [facility] Sodium [Moles/Vol] 138 mmol/L 136-145 [facility] WBC (Bld) [#/Vol] 6.3 10*3/uL 4.4-11.0 [facility] Determination of erythrocyte mean corpuscular volume (MCV)Ordered By: Dillan Cristina on 12-15-2023 MCV (RBC) [Entitic vol] 87.8 fL 81-99 [facility] Erythrocyte distribution wid th ratioOrdered By: Dillan Cristina on 12-15-2023 Erythrocyte distribution width (RBC) [Ratio] 16.0 % 11.6-14.6 [facility] Erythrocyte distribution wid th standard deviationOrdered By: [facility] Ibeth on 12-15-2023 Erythrocyte distribution width (RBC) [Entitic vol] 51.6 fL 35.1-43.9 [facility] Hematocrit Auto (Bld) [Volum e fraction]Ordered By: Dillan Cristina on 12-15-2023 Hematocrit (Bld) [Volume fraction] 39.4 % 37-47 [facility] Immature granulocytes/100 WB C Auto (Bld)Ordered By: [facility] Cristina on 12-15-2023 Immature granulocytes/100 WBC (Bld) 0.200 % 0.0-0.9 [facility] Comment on above: IG% - Immature Granu locytes (promyelocytes, myelocytes and metamyelocytes) > 1% indicates that a LEFT SHIFT is Present. Laboratory - Chemistry and C hemistry - challengeOrdered By: Dillan Cristina on 12-15-2023 Albumin/Globulin [Mass ratio] 1.4 {ratio} 0.9-2.4 [facility] ALP [Catalytic activity/Vol] 64 U/L 45-117 [facility] ALT [Catalytic activity/Vol] 23 U/L 13-56 [facility] CO2 [Moles/Vol] 27.0 mmol/L 21.0-32.0 [facility] Globulin (S) [Mass/Vol] 3.1 g/dL 2.2-4.2 [facility] Urea nitrogen/Creatinine [Mass ratio] 16.0 mg/mg 10-20 [facility] Laboratory - Hematology and Cell countsOrdered By: Dillan Cristina on 12-15-2023 MCH (RBC) [Entitic mass] 27.8 pg 27.0-32.0 [facility] MCHC (RBC) [Mass/Vol] 31.7 g/dL 32-36 [facility] Nucleated RBC/100 WBC (Bld) [Ratio] 0 % 0-5 [facility] Platelet mean volume (Bld) [Entitic vol] 9.4 fL 6.2-12.0 [facility] Platelets (Bld) [#/Vol] 374 10*3/uL 150-450 [facility] No Panel InformationOrdered By: Dillan Cristina on 12-15-2023 Estimated GFR (MDRD) Amer 110 mL/min >60 [facility] Comment on above: GFR Calc Estimated GFR (MDRD) Non-Af Amer 91 mL/min >60 [facility] Comment on above: Non- GFR Calc Miscellaneous Test Comment SEE SCANNED REPORT [facility] RBC Auto (Bld) [#/Vol]Ordere d By: Dillan Cristina on 12-15-2023 RBC (Bld) [#/Vol] 4.49 10*6/uL 4.2-5.4 [facility] Serum or plasma calcium teddy urement (mass/volume)Ordered By: Dillan Cristina on 12-15-2023 Calcium [Mass/Vol] 9.7 mg/dL 8.5-10.1 [facility] Serum or plasma creatinine m easurement (mass/volume)Ordered By: Dillan Cristina on 12-15-2023 Creatinine [Mass/Vol] 0.69 mg/dL 0.55-1.02 [facility] Comment on above: The validity of the calculated GFR & GFRAA in patients over 70 years has not been determined. Clinical correlation is essential. Serum or plasma urea nitroge n measurement (mass/volume)Ordered By: Dillan Cristina on 12-15-2023 Urea nitrogen [Mass/Vol] 11 mg/dL 7-18 [facility] Thin prep Papanicolaou smear with manual screeningOrdered By: Dillan Cristina on 12-15-2023 Thin prep Papanicolaou smear with manual screening 4.4 g/dL 3.2-5.0 [facility] Thin prep Papanicolaou smear with manual screening 16 U/L 15-37 [facility] Thin prep Papanicolaou smear with manual screening 2 5-15 [facility] Absolute lymphocyte countOrd ered By: Harrison Contreras on 10-26-2023 Lymphocytes Auto (Unsp spec) [#/Vol] 0.69 10*3/uL 0.83-4.51 [facility] Basophil percentageOrdered B y: Harrison Contreras on 10-26-2023 Basophils/100 WBC (Bld) 0.2 % 0-1 [facility] Chloride [Moles/Vol] 107 mmol/L 98-107 [facility] Eosinophils/100 WBC (Bld) 0.3 % 0-5 [facility] Glucose [Mass/Vol] 107 mg/dL 74-106 [facility] Comment on above: Fasting Glucose resu lt from 100 to 125 mg/dL suggests IMPAIRED HOMEOSTASIS per A.D.A. criteria. Neutrophils (Bld) [#/Vol] 15.9 10*3/uL 2.0-7.7 [facility] Neutrophils/100 WBC (Bld) 92.2 % 47-70 [facility] Potassium [Moles/Vol] 3.5 mmol/L 3.5-5.1 [facility] Sodium [Moles/Vol] 137 mmol/L 136-145 [facility] WBC (Bld) [#/Vol] 17.2 10*3/uL 4.4-11.0 [facility] Basophil percentage 0-5 SEEN /hpf 0-5 [facility] Bilirubin Test strip Ql (U)O rdered By: Harrison Contreras on 10-26-2023 Bilirubin Ql (U) 1 mg/dL Negative [facility] Comment on above: COLOR OF URINE MAY A FFECT DIPSTICK RESULTS. Blood erythrocytes count (nu mber/volume)Ordered By: Harrison Contreras on 10-26-2023 RBC (Bld) [#/Vol] 4.32 10*6/uL 4.2-5.4 [facility] Blood hemoglobin measurement (mass/volume)Ordered By: Harrison Contreras on 10-26-2023 Hemoglobin (Bld) [Mass/Vol] 12.5 g/dL 12.0-15.0 [facility] Blood lymphocytes/100 leukoc ytesOrdered By: Harrison Contreras on 10-26-2023 Lymphocytes/100 WBC (Bld) 4.0 % 19-41 [facility] Blood monocytes/100 leukocyt esOrdered By: Harrison Contreras on 10-26-2023 Monocytes/100 WBC (Bld) 3.0 % 0-10 [facility] Blood platelet mean volumeOr dered By: Harrison Contreras on 10-26-2023 Platelet mean volume (Bld) [Entitic vol] 9.7 fL 6.2-12.0 [facility] Determination of erythrocyte mean corpuscular volume (MCV)Ordered By: Harrison Contreras on 10-26-2023 MCV (RBC) [Entitic vol] 87.3 fL 81-99 [facility] Hematocrit Auto (Bld) [Volum e fraction]Ordered By: Harrison Contreras on 10-26-2023 Hematocrit (Bld) [Volume fraction] 37.7 % 37-47 [facility] Ketones Test strip Ql (U)Ord ered By: Harrison Contreras on 10-26-2023 Ketones Ql (U) Negative Negative [facility] Laboratory - Chemistry and C hemistry - challengeOrdered By: Harrison Contreras on 10-26-2023 CO2 [Moles/Vol] 23.0 mmol/L 21.0-32.0 [facility] Urea nitrogen/Creatinine [Mass ratio] 15.5 mg/mg 10-20 [facility] Laboratory - Hematology and Cell countsOrdered By: Harrison Contreras on 10-26-2023 Erythrocyte distribution width (RBC) [Entitic vol] 47.7 fL 35.1-43.9 [facility] Erythrocyte distribution width (RBC) [Ratio] 14.8 % 11.6-14.6 [facility] Immature granulocytes/100 WBC (Bld) 0.300 % 0.0-0.9 [facility] Comment on above: IG% - Immature Granu locytes (promyelocytes, myelocytes and metamyelocytes) > 1% indicates that a LEFT SHIFT is Present. MCH (RBC) [Entitic mass] 28.9 pg 27.0-32.0 [facility] Nucleated RBC/100 WBC (Bld) [Ratio] 0 % 0-5 [facility] Laboratory - Microbiology an d Antimicrobial susceptibilityOrdered By: Harrison Contreras on 10-26-2023 Bacteria identified Cx Nom (Bld) No growth in 5 days. [facility] SARS-CoV-2 (COVID-19) RNA LATONIA+probe Ql (Unsp spec) [facility] Bacteria identified Cx Nom (Bld) No growth in 5 days. [facility] SARS-CoV-2 (COVID-19) RNA LATONIA+probe Ql (Unsp spec) [facility] MCHC Auto (RBC) [Mass/Vol]Or dered By: Harrison Contreras on 10-26-2023 MCHC (RBC) [Mass/Vol] 33.2 g/dL 32-36 [facility] Mucus LM Ql (Urine sed)Order ed By: Harrison Contreras on 10-26-2023 Mucus Ql (Urine sed) 0 SEEN /hpf [facility] Nitrite Test strip Ql (U)Ord ered By: Harrison Contreras on 10-26-2023 Nitrite Ql (U) Negative Negative [facility] No Panel InformationOrdered By: Harrison Contreras on 10-26-2023 Estimated Creatinine Clearance Calc 47.97 ml/min [facility] Estimated GFR (MDRD) Amer 80 mL/min >60 [facility] Comment on above: GFR Calc Estimated GFR (MDRD) Non-Af Amer 66 mL/min >60 [facility] Comment on above: Non- GFR Calc Platelets bldOrdered By: Barbara Contreras on 10-26-2023 Platelets (Bld) [#/Vol] 299 10*3/uL 150-450 [facility] Protein Test strip Ql (U)Ord ered By: Harrison Contreras on 10-26-2023 Protein Ql (U) 30 mg/dl Negative [facility] Serum or plasma calcium teddy urement (mass/volume)Ordered By: Harrison Contreras on 10-26-2023 Calcium [Mass/Vol] 9.9 mg/dL 8.5-10.1 [facility] Serum or plasma creatinine m easurement (mass/volume)Ordered By: Harrison Contreras on 10-26-2023 Creatinine [Mass/Vol] 0.90 mg/dL 0.55-1.02 [facility] Comment on above: The validity of the calculated GFR & GFRAA in patients over 70 years has not been determined. Clinical correlation is essential. Serum or plasma urea nitroge n measurement (mass/volume)Ordered By: Harrison Contreras on 10-26-2023 Urea nitrogen [Mass/Vol] 14 mg/dL 7-18 [facility] Squamous epithelial cells de tection in urine sediment by light microscopyOrdered By: Harrison Contreras on 10-26-2023 Epithelial cells.squamous LM Ql (Urine sed) 0-5 SEEN /hpf 5-10 [facility] Thin prep Papanicolaou smear with manual screeningOrdered By: Harrison Contreras on 10-26-2023 Thin prep Papanicolaou smear with manual screening 7 5-15 [facility] Urine blood detectionOrdered By: Harrison Contreras on 10-26-2023 RBC Ql (U) 10 /ul Negative [facility] RBC Ql (U) 0 SEEN /hpf 0-5 [facility] Urine clarityOrdered By: Barbara Contreras on 10-26-2023 Clarity (U) Clear Clear [facility] Urine color determinationOrd ered By: Harrison Contreras on 10-26-2023 Color (U) Yellow Yellow [facility] Urine glucose detectionOrder ed By: Harrison Contreras on 10-26-2023 Glucose Ql (U) Normal mg/dl Normal [facility] Urine leukocyte esterase det ection by dipstickOrdered By: Harrison Contreras on 10-26-2023 Leukocyte esterase Test strip Ql (U) 100 /ul Negative [facility] Urine pHOrdered By: Harrison harris on 10-26-2023 pH (U) 5.0 [pH] 5.0 - 8.0 [facility] Urine sediment bacteria coun t by microscopy (number/high power field)Ordered By: Harrison Contreras on 10-26-2023 Bacteria LM.HPF (Urine sed) [#/Area] 0 /[HPF] None Seen [facility] Urine specific gravity measu rementOrdered By: Harrison Contreras on 10-26-2023 Specific gravity (U) [Rel density] 1.025 1.002-1.030 [facility] Urobilinogen Auto test strip Ql (U)Ordered By: Harrison Contreras on 10-26-2023 Urobilinogen Ql (U) Normal mg/dl Normal [facility] CT LUMBAR W/O CONTRASTon CT LUMBAR W/O CONTRAST [place] [address] Patient: MARY COLON Phone#: : [phone] Age: 68 Gender: F Pt. Type: ER Account: [id number] Location: 052 Ordering: DR. IFEOMA SORIA Exam Date: 10/11/2023/15:59 Family Phys: JOSE GARZON Charge Code: [id number] Physician: Woodruff Order #: [id number] Dose#: 16.2 mGy PROCEDURE: CT LUMBAR SPINE WITHOUT CONTRAST COMPARISON: None. INDICATIONS: Trauma. TECHNIQUE: After obtaining the patient's consent, multi-planar CT images were created without intravenous contrast material. All CT scans at this facility use dose modulation, iterative reconstruction, and/or weight based dosing when appropriate to reduce radiation dose to as low as reasonably achievable. IV CONTRAST: No IV contrast used,0ml TOTAL DOSE: 16.2 CTDIvol(mGy) FINDINGS: PARASPINAL AREA: Normal with no visible mass. BONES: Diffuse bony demineralization. T12 age-indeterminate anterior wedge compression deformity. There is an anterior osteophyte present. There is grade 2 anterolisthesis of L3 on L4. 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 Posterior spinal fusion with pedicle screws and rods from L4-L5. L5 transverse spinous process sacralization. There is a hemangioma in the T10 vertebral body. OTHER: Low-attenuation lesion in the right lobe of the liver, incompletely characterized without contrast, it measures 1.3 cm HU 6. Nonobstructing bilateral renal calculi. LUMBAR DISC LEVELS: L1-L2: Disc height loss contributes to mild bilateral foraminal narrowing L2-L3: Asymmetric left disc bulge contributes to mild left foraminal narrowing. L3-L4: Grade 2 anterior listhesis and disc height loss contributes to moderate to severe spinal canal narrowing and severe bilateral foraminal narrowing L4-L5: No significant disc/facet abnormality, spinal stenosis, or foraminal stenosis. L5-S1: No significant disc/facet abnormality, spinal stenosis, or foraminal stenosis. Continued Report - Page 2 of 2 Patient: MARY COLON Phone#: : [phone] Age: 68 Gender: F Pt. Type: ER Account: [id number] Location: 052 Ordering: DR. IFEOMA SORIA Exam Date: 10/11/2023/15:59 Family Phys: JOSE GARZON Charge Code: [id number] Physician: Woodruff Order #: [id number] Dose#: 16.2 mGy CONCLUSION: 1. T12 anterior wedge compression deformity, may be chronic, recommend correlation with point tenderness. 2. Chronic appearing L3-4 grade 2 anterolisthesis and disc height loss contributes to moderate to severe spinal canal narrowing and severe bilateral foraminal narrowing 3. Surgical changes at L4-5. Dictated by: Ness Polk MD on 10/11/2023 at 16:24 Approved by: Ness Polk MD on 10/11/2023 at 16:36 Normal [facility] Absolute lymphocyte countOrd ered By: Jose Garzon on 07-18-2023 Lymphocytes Auto (Unsp spec) [#/Vol] 2.18 10*3/uL 0.83-4.51 [facility] Basophil percentageOrdered B y: Jose Garzon on 07-18-2023 Basophil percentage 0 SEEN /hpf 0-5 [facility] Basophils/100 WBC (Bld) 0.7 % 0-1 [facility] Bilirubin [Mass/Vol] 0.20 mg/dL 0.20-1.00 [facility] Comment on above: For patients on eltr ombopag therapy, use of Dimension [place] TBIL is not recommended. Chloride [Moles/Vol] 107 mmol/L 98-107 [facility] Cholesterol [Mass/Vol] 158 mg/dL <200 [facility] Comment on above: <200 mg/dL Desirable 200-240 mg/dL Borderline >240 mg/dL High Risk Eosinophils/100 WBC (Bld) 2.9 % 0-5 [facility] Glucose [Mass/Vol] 102 mg/dL 74-106 [facility] Comment on above: Fasting Glucose resu lt from 100 to 125 mg/dL suggests IMPAIRED HOMEOSTASIS per A.D.A. criteria. Neutrophils (Bld) [#/Vol] 5.2 10*3/uL 2.0-7.7 [facility] Neutrophils/100 WBC (Bld) 63.4 % 47-70 [facility] Potassium [Moles/Vol] 3.9 mmol/L 3.5-5.1 [facility] Protein [Mass/Vol] 7.0 g/dL 6.4-8.2 [facility] Sodium [Moles/Vol] 139 mmol/L 136-145 [facility] Triglyceride [Mass/Vol] 107 mg/dL <199 [facility] Comment on above: The drugs N-Acetylcy steine and Metamizole may falsely depress this assay.Serum Triglycerides Reference Interval Normal <150 mg/dL Borderline high 150 - 199 mg/dL High 200 - 499 mg/dL Very High > or = 500 mg/dL WBC (Bld) [#/Vol] 8.2 10*3/uL 4.4-11.0 [facility] Bilirubin Test strip Ql (U)O rdered By: Jose Garzon on 07-18-2023 Bilirubin Ql (U) 1 mg/dL Negative [facility] Comment on above: COLOR OF URINE MAY A FFECT DIPSTICK RESULTS. Blood erythrocytes count (nu mber/volume)Ordered By: Jose Garzon on 07-18-2023 RBC (Bld) [#/Vol] 4.04 10*6/uL 4.2-5.4 [facility] Blood hemoglobin measurement (mass/volume)Ordered By: Jose Garzon on 07-18-2023 Hemoglobin (Bld) [Mass/Vol] 11.5 g/dL 12.0-15.0 [facility] Blood lymphocytes/100 leukoc ytesOrdered By: Jose Garzon on 07-18-2023 Lymphocytes/100 WBC (Bld) 26.7 % 19-41 [facility] Blood monocytes/100 leukocyt esOrdered By: Jose Garzon on 07-18-2023 Monocytes/100 WBC (Bld) 6.1 % 0-10 [facility] Blood platelet mean volumeOr dered By: Jose Garzon on 07-18-2023 Platelet mean volume (Bld) [Entitic vol] 10.0 fL 6.2-12.0 [facility] Determination of erythrocyte mean corpuscular volume (MCV)Ordered By: Jose Garzon on 07-18-2023 MCV (RBC) [Entitic vol] 90.6 fL 81-99 [facility] Hematocrit Auto (Bld) [Volum e fraction]Ordered By: Jose Garzon on 07-18-2023 Hematocrit (Bld) [Volume fraction] 36.6 % 37-47 [facility] Ketones Test strip Ql (U)Ord ered By: Jose Garzon on 07-18-2023 Ketones Ql (U) Negative Negative [facility] Laboratory - Chemistry and C hemistry - challengeOrdered By: Jose Garzon on 07-18-2023 ALP [Catalytic activity/Vol] 78 U/L 45-117 [facility] ALT [Catalytic activity/Vol] 31 U/L 13-56 [facility] CO2 [Moles/Vol] 29.0 mmol/L 21.0-32.0 [facility] Globulin (S) [Mass/Vol] 3.5 g/dL 2.2-4.2 [facility] Urea nitrogen/Creatinine [Mass ratio] 16.0 mg/mg 10-20 [facility] Laboratory - Hematology and Cell countsOrdered By: Jose Garzon on 07-18-2023 Erythrocyte distribution width (RBC) [Entitic vol] 49.0 fL 35.1-43.9 [facility] Erythrocyte distribution width (RBC) [Ratio] 14.6 % 11.6-14.6 [facility] Immature granulocytes/100 WBC (Bld) 0.200 % 0.0-0.9 [facility] Comment on above: IG% - Immature Granu locytes (promyelocytes, myelocytes and metamyelocytes) > 1% indicates that a LEFT SHIFT is Present. MCH (RBC) [Entitic mass] 28.5 pg 27.0-32.0 [facility] Nucleated RBC/100 WBC (Bld) [Ratio] 0 % 0-5 [facility] MCHC Auto (RBC) [Mass/Vol]Or dered By: Jose Garzon on 07-18-2023 MCHC (RBC) [Mass/Vol] 31.4 g/dL 32-36 [facility] Mucus LM Ql (Urine sed)Order ed By: Jose Garzon on 07-18-2023 Mucus Ql (Urine sed) 0 SEEN /hpf [facility] Nitrite Test strip Ql (U)Ord ered By: Jose Garzon on 07-18-2023 Nitrite Ql (U) Negative Negative [facility] No Panel InformationOrdered By: Jose Garzon on 07-18-2023 Estimated GFR (MDRD) Amer 99 mL/min >60 [facility] Comment on above: GFR Calc Estimated GFR (MDRD) Non-Af Amer 82 mL/min >60 [facility] Comment on above: Non- GFR Calc Thyroid Stimulating Hormone (TSH) 1.08 uIU/mL 0.358-3.74 [facility] Vitamin D 25-Hydroxy 44.4 ng/mL [facility] Comment on above: Vitamin D 25(OH) Sta tus Range Deficiency <20 ng/mL (50nmol/L) Insufficiency 20 - 30 ng/mL (50 - 75 nmol/L) Sufficiency 30 - 100 ng/mL (75 - 250 nmol/L) Toxicity >100 ng/mL (>250 nmol/L) Platelets bldOrdered By: Jcarlos Garzon on 07-18-2023 Platelets (Bld) [#/Vol] 370 10*3/uL 150-450 [facility] Protein Test strip Ql (U)Ord ered By: Jose Garzon on 07-18-2023 Protein Ql (U) 15 mg/dl Negative [facility] Serum or plasma albumin teddy urement (mass/volume)Ordered By: Jose Garzon on 07-18-2023 Albumin [Mass/Vol] 3.5 g/dL 3.2-5.0 [facility] Serum or plasma albumin/glob ulin mass ratioOrdered By: Jose Garzon on 07-18-2023 Albumin/Globulin [Mass ratio] 1.0 {ratio} 0.9-2.4 [facility] Serum or plasma calcium teddy urement (mass/volume)Ordered By: Jose Garzon on 07-18-2023 Calcium [Mass/Vol] 8.8 mg/dL 8.5-10.1 [facility] Serum or plasma cholesterol in HDL measurement (mass/volume)Ordered By: Jose Garzon on 07-18-2023 Cholesterol in HDL [Mass/Vol] 49 mg/dL >40 [facility] Comment on above: The drugs N-Acetylcy steine and Metamizole may falsely depress this assay. Reference Range HDL <40 mg/dL Low HDL Cholesterol HDL >or= 60 mg/dL High HDL Cholesterol Serum or plasma cholesterol in VLDL measurement (mass/volume)Ordered By: Jose Garzon on 07-18-2023 Cholesterol in VLDL [Mass/Vol] 21 mg/dL 5-40 [facility] Serum or plasma creatinine m easurement (mass/volume)Ordered By: Jose Garzon on 07-18-2023 Creatinine [Mass/Vol] 0.75 mg/dL 0.55-1.02 [facility] Comment on above: The validity of the calculated GFR & GFRAA in patients over 70 years has not been determined. Clinical correlation is essential. Serum or plasma low density lipoprotein (LDL) cholesterol measurement (mass/volume)Ordered By: Jose Garzon on 07-18-2023 Cholesterol in LDL [Mass/Vol] 88 mg/dL 0-130 [facility] Serum or plasma urea nitroge n measurement (mass/volume)Ordered By: Jose Garzon on 07-18-2023 Urea nitrogen [Mass/Vol] 12 mg/dL 7-18 [facility] Squamous epithelial cells de tection in urine sediment by light microscopyOrdered By: Jose Garzon on 07-18-2023 Epithelial cells.squamous LM Ql (Urine sed) 0-5 SEEN /hpf 5-10 [facility] Thin prep Papanicolaou smear with manual screeningOrdered By: Jose Garzon on 07-18-2023 Thin prep Papanicolaou smear with manual screening 19 U/L 15-37 [facility] Thin prep Papanicolaou smear with manual screening 3 5-15 [facility] Urine blood detectionOrdered By: Jose Garzon on 07-18-2023 RBC Ql (U) 10 /ul Negative [facility] RBC Ql (U) 0 SEEN /hpf 0-5 [facility] Urine clarityOrdered By: Jcarlos Garzon on 07-18-2023 Clarity (U) Clear Clear [facility] Urine color determinationOrd ered By: Jose Garzon on 07-18-2023 Color (U) Yellow Yellow [facility] Urine glucose detectionOrder ed By: Jose Garzon on 07-18-2023 Glucose Ql (U) Normal mg/dl Normal [facility] Urine leukocyte esterase det ection by dipstickOrdered By: Jose Garzon on 07-18-2023 Leukocyte esterase Test strip Ql (U) 100 /ul Negative [facility] Urine pHOrdered By: Jose meza on 07-18-2023 pH (U) 7.0 [pH] 5.0 - 8.0 [facility] Urine sediment bacteria coun t by microscopy (number/high power field)Ordered By: Jose Garzon on 07-18-2023 Bacteria LM.HPF (Urine sed) [#/Area] 0 /[HPF] None Seen [facility] Urine specific gravity measu rementOrdered By: Jose Garzon on 07-18-2023 Specific gravity (U) [Rel density] 1.010 1.002-1.030 [facility] Urobilinogen Auto test strip Ql (U)Ordered By: Jose Garzon on 07-18-2023 Urobilinogen Ql (U) Normal mg/dl Normal [facility] Laboratory - Drug toxicology Ordered By: Jose Garzon on 04-15-2023 Amphetamines Ql (U) Negative <1000 ng/mL [facility] Benzodiazepines Ql (U) Negative < 200 ng/mL [facility] Cannabinoids Screen Ql (U) Negative < 50 ng/mL [facility] Cocaine Ql (U) Negative < 300 ng/mL [facility] Opiates Ql (U) Negative < 300 ng/mL [facility] No Panel InformationOrdered By: Jose Garzon on 04-15-2023 MDMA (Ecstasy) Screen Negative < 500 ng/mL [facility] Miscellaneous Test See comment [facility] Comment on above: TEST RESULT LIMITSTr amadol Negative ng/mL Yytkeq=200 TESTING PERFORMED AT [facility]. ORIGINAL REPORT ON FILE IN LAB CONTAINS ADDITIONAL TEST SITE INFORMATION. Urine Barbiturates Screen Negative < 200 ng/m L [facility] Urine Drug Screen Comment [facility] Comment on above: CONFIRMATORY TESTING FOR ALL POSITIVE URINE DRUG SCREENRESULTS WILL ONLY BE SENT OUT UPON PHYSICIAN ORDER. VISTA Urine Drug Screen methods provide only preliminaryanalytical test results. A more specific alternate chemicalmethod must be used in order to obtain a confirmedanalytical result. Gas chromatography/mass spectrometery(GC/MS) is the preferred confirmatory method. Clinicalconsideration and professional judgement should be appliedto any drug of abuse test result, particularly whenpreliminary positive results are used. URINE TCA TESTING MUST BE ORDERED SEPARATELY. USE TESTMNEMONIC: [facility] Urine Methadone Screen Negative < 300 ng/mL [facility] Urine phencyclidine (PCP) de tectionOrdered By: Jose Garzon on 04-15-2023 Phencyclidine Ql (U) Negative < 25 ng/mL [facility] Absolute lymphocyte countOrd ered By: Dr. Garzon on 02-19-2023 Lymphocytes Auto (Unsp spec) [#/Vol] 2.04 10*3/uL 0.83-4.51 [facility] Basophil percentageOrdered B y: Dr. Garzon on 02-19-2023 Basophil percentage 25-50 SEEN /hpf 0-5 [facility] Basophils/100 WBC (Bld) 0.7 % 0-1 [facility] Bilirubin [Mass/Vol] 0.40 mg/dL 0.20-1.00 [facility] Comment on above: For patients on eltr ombopag therapy, use of Dimension [place] TBIL is not recommended. Chloride [Moles/Vol] 108 mmol/L 98-107 [facility] Cholesterol [Mass/Vol] 175 mg/dL <200 [facility] Comment on above: <200 mg/dL Desirable 200-240 mg/dL Borderline >240 mg/dL High Risk Eosinophils/100 WBC (Bld) 1.1 % 0-5 [facility] Glucose [Mass/Vol] 113 mg/dL 74-106 [facility] Comment on above: Fasting Glucose resu lt from 100 to 125 mg/dL suggests IMPAIRED HOMEOSTASIS per A.D.A. criteria. Neutrophils (Bld) [#/Vol] 7.5 10*3/uL 2.0-7.7 [facility] Neutrophils/100 WBC (Bld) 73.6 % 47-70 [facility] Potassium [Moles/Vol] 4.1 mmol/L 3.5-5.1 [facility] Protein [Mass/Vol] 7.1 g/dL 6.4-8.2 [facility] Sodium [Moles/Vol] 140 mmol/L 136-145 [facility] Triglyceride [Mass/Vol] 151 mg/dL <199 [facility] Comment on above: The drugs N-Acetylcy steine and Metamizole may falsely depress this assay.Serum Triglycerides Reference Interval Normal <150 mg/dL Borderline high 150 - 199 mg/dL High 200 - 499 mg/dL Very High > or = 500 mg/dL WBC (Bld) [#/Vol] 10.2 10*3/uL 4.4-11.0 [facility] Bilirubin Test strip Ql (U)O rdered By: Dr. Garzon on 02-19-2023 Bilirubin Ql (U) Negative Negative [facility] Blood erythrocytes count (nu mber/volume)Ordered By: Dr. Garzon on 02-19-2023 RBC (Bld) [#/Vol] 3.94 10*6/uL 4.2-5.4 [facility] Blood hemoglobin measurement (mass/volume)Ordered By: Dr. Garzon on 02-19-2023 Hemoglobin (Bld) [Mass/Vol] 11.9 g/dL 12.0-15.0 [facility] Blood lymphocytes/100 leukoc ytesOrdered By: Dr. Garzon on 02-19-2023 Lymphocytes/100 WBC (Bld) 20.1 % 19-41 [facility] Blood monocytes/100 leukocyt esOrdered By: Dr. Garzon on 02-19-2023 Monocytes/100 WBC (Bld) 4.1 % 0-10 [facility] Blood platelet mean volumeOr dered By: Dr. Garzon on 02-19-2023 Platelet mean volume (Bld) [Entitic vol] 10.4 fL 6.2-12.0 [facility] Determination of erythrocyte mean corpuscular volume (MCV)Ordered By: Dr. Garzon on 02-19-2023 MCV (RBC) [Entitic vol] 96.2 fL 81-99 [facility] Hematocrit Auto (Bld) [Volum e fraction]Ordered By: Dr. Garzon on 02-19-2023 Hematocrit (Bld) [Volume fraction] 37.9 % 37-47 [facility] Iron measurement (mass/mass) Ordered By: Dr. Garzon on 02-19-2023 Iron (Unsp spec) [Mass/Mass] 62 ug/dL 50-170 [facility] Ketones Test strip Ql (U)Ord ered By: Dr. Garzon on 02-19-2023 Ketones Ql (U) Negative Negative [facility] Laboratory - Chemistry and C hemistry - challengeOrdered By: Dr. Garzon on 02-19-2023 Cobalamin (Vitamin B12) [Mass/Vol] 415 pg/mL 211-911 [facility] Transferrin [Mass/Vol] 320 mg/dL 192-364 [facility] Comment on above: Performed at: [address] [id number] Director: Scott Shepherd PhD, Phone: [phone] ALP [Catalytic activity/Vol] 72 U/L 45-117 [facility] ALT [Catalytic activity/Vol] 24 U/L 13-56 [facility] CO2 [Moles/Vol] 25.0 mmol/L 21.0-32.0 [facility] Globulin (S) [Mass/Vol] 3.2 g/dL 2.2-4.2 [facility] Urea nitrogen/Creatinine [Mass ratio] 19.2 mg/mg 10-20 [facility] Laboratory - Hematology and Cell countsOrdered By: Dr. Garzon on 02-19-2023 Erythrocyte distribution width (RBC) [Entitic vol] 49.4 fL 35.1-43.9 [facility] Erythrocyte distribution width (RBC) [Ratio] 14.0 % 11.6-14.6 [facility] Immature granulocytes/100 WBC (Bld) 0.400 % 0.0-0.9 [facility] Comment on above: IG% - Immature Granu locytes (promyelocytes, myelocytes and metamyelocytes) > 1% indicates that a LEFT SHIFT is Present. MCH (RBC) [Entitic mass] 30.2 pg 27.0-32.0 [facility] Nucleated RBC/100 WBC (Bld) [Ratio] 0 % 0-5 [facility] MCHC Auto (RBC) [Mass/Vol]Or dered By: Dr. Garzon on 02-19-2023 MCHC (RBC) [Mass/Vol] 31.4 g/dL 32-36 [facility] Mucus LM Ql (Urine sed)Order ed By: Dr. Garzon on 02-19-2023 Mucus Ql (Urine sed) 0 SEEN /hpf [facility] Nitrite Test strip Ql (U)Ord ered By: Dr. Garzon on 02-19-2023 Nitrite Ql (U) Negative Negative [facility] No Panel InformationOrdered By: Dr. Garzon on 02-19-2023 Total Iron Binding Capacity 376 ug/dL 250-450 [facility] Estimated GFR (MDRD) Amer 102 mL/min >60 [facility] Comment on above: GFR Calc Estimated GFR (MDRD) Non-Af Amer 85 mL/min >60 [facility] Comment on above: Non- GFR Calc Vitamin D 25-Hydroxy 62.2 ng/mL [facility] Comment on above: Vitamin D 25(OH) Sta tus Range Deficiency <20 ng/mL (50nmol/L) Insufficiency 20 - 30 ng/mL (50 - 75 nmol/L) Sufficiency 30 - 100 ng/mL (75 - 250 nmol/L) Toxicity >100 ng/mL (>250 nmol/L) Platelets bldOrdered By: Dr. Garzon on 02-19-2023 Platelets (Bld) [#/Vol] 367 10*3/uL 150-450 [facility] Protein Test strip Ql (U)Ord ered By: Dr. Garzon on 02-19-2023 Protein Ql (U) Negative Negative [facility] Serum or plasma albumin teddy urement (mass/volume)Ordered By: Dr. Garzon on 02-19-2023 Albumin [Mass/Vol] 3.9 g/dL 3.2-5.0 [facility] Serum or plasma albumin/glob ulin mass ratioOrdered By: Dr. Garzon on 02-19-2023 Albumin/Globulin [Mass ratio] 1.2 {ratio} 0.9-2.4 [facility] Serum or plasma calcium teddy urement (mass/volume)Ordered By: Dr. Garzon on 02-19-2023 Calcium [Mass/Vol] 9.1 mg/dL 8.5-10.1 [facility] Serum or plasma cholesterol in HDL measurement (mass/volume)Ordered By: Dr. Garzon on 02-19-2023 Cholesterol in HDL [Mass/Vol] 49 mg/dL >40 [facility] Comment on above: The drugs N-Acetylcy steine and Metamizole may falsely depress this assay. Reference Range HDL <40 mg/dL Low HDL Cholesterol HDL >or= 60 mg/dL High HDL Cholesterol Serum or plasma cholesterol in VLDL measurement (mass/volume)Ordered By: Dr. Garzon on 02-19-2023 Cholesterol in VLDL [Mass/Vol] 30 mg/dL 5-40 [facility] Serum or plasma creatinine m easurement (mass/volume)Ordered By: Dr. Garzon on 02-19-2023 Creatinine [Mass/Vol] 0.73 mg/dL 0.55-1.02 [facility] Comment on above: The validity of the calculated GFR & GFRAA in patients over 70 years has not been determined. Clinical correlation is essential. Serum or plasma ferritin sakina surement (mass/volume)Ordered By: Dr. Garzon on 02-19-2023 Ferritin [Mass/Vol] 11 ng/mL 8-252 [facility] Serum or plasma iron saturat ion measurement (mass fraction)Ordered By: Dr. Garzon on 02-19-2023 Iron saturation [Mass fraction] 16.5 % 15.0-55.0 [facility] Serum or plasma low density lipoprotein (LDL) cholesterol measurement (mass/volume)Ordered By: Dr. Garzon on 02-19-2023 Cholesterol in LDL [Mass/Vol] 96 mg/dL 0-130 [facility] Serum or plasma urea nitroge n measurement (mass/volume)Ordered By: Dr. Garzon on 02-19-2023 Urea nitrogen [Mass/Vol] 14 mg/dL 7-18 [facility] Squamous epithelial cells de tection in urine sediment by light microscopyOrdered By: Dr. Garzon on 02-19-2023 Epithelial cells.squamous LM Ql (Urine sed) 0-5 SEEN /hpf 5-10 [facility] Thin prep Papanicolaou smear with manual screeningOrdered By: Dr. Garzon on 02-19-2023 Thin prep Papanicolaou smear with manual screening 18 U/L 15-37 [facility] Thin prep Papanicolaou smear with manual screening 7 5-15 [facility] Urine blood detectionOrdered By: Dr. Garzon on 02-19-2023 RBC Ql (U) Negative Negative [facility] RBC Ql (U) 0 SEEN /hpf 0-5 [facility] Urine clarityOrdered By: Dr. Garzon on 02-19-2023 Clarity (U) Sl. Cloudy Clear [facility] Urine color determinationOrd ered By: Dr. Garzon on 02-19-2023 Color (U) Yellow Yellow [facility] Urine glucose detectionOrder ed By: Dr. Garzon on 02-19-2023 Glucose Ql (U) Normal mg/dl Normal [facility] Urine leukocyte esterase det ection by dipstickOrdered By: Dr. Garzon on 02-19-2023 Leukocyte esterase Test strip Ql (U) 500 /ul Negative [facility] Urine pHOrdered By: Dr. Jose chao on 02-19-2023 pH (U) 7.0 [pH] 5.0 - 8.0 [facility] Urine sediment bacteria coun t by microscopy (number/high power field)Ordered By: Dr. Garzon on 02-19-2023 Bacteria LM.HPF (Urine sed) [#/Area] 1 /[HPF] None Seen [facility] Urine specific gravity measu rementOrdered By: Dr. Garzon on 02-19-2023 Specific gravity (U) [Rel density] 1.010 1.002-1.030 [facility] Urobilinogen Auto test strip Ql (U)Ordered By: Dr. Garzon on 02-19-2023 Urobilinogen Ql (U) Normal mg/dl Normal [facility] Whole blood hemoglobin A1c/t otal hemoglobin ratio (mass fraction)Ordered By: Dr. Garzon on 02-19-2023 HbA1c (Bld) [Mass fraction] 5.4 % 3.8-5.6 [facility] Comment on above: Normal < 5.7 % Predi abetic 5.7 - 6.4 % Diabetic >or= 6.5 % Please note range changes. Absolute lymphocyte countOrd ered By: Dr. Hanks on 01-07-2023 Lymphocytes Auto (Unsp spec) [#/Vol] 5.97 10*3/uL 0.83-4.51 [facility] Alternaria alternata IgE ser umOrdered By: Dr. Hanks on 01-07-2023 A. alternata IgE Qn (S) <0.10 kU/L Class 0 [facility] Basophil percentageOrdered B y: Dr. Hanks on 01-07-2023 Basophils/100 WBC (Bld) 0.3 % 0-1 [facility] Eosinophils/100 WBC (Bld) 0.7 % 0-5 [facility] Neutrophils (Bld) [#/Vol] 7.7 10*3/uL 2.0-7.7 [facility] Neutrophils/100 WBC (Bld) 52.2 % 47-70 [facility] WBC (Bld) [#/Vol] 14.7 10*3/uL 4.4-11.0 [facility] Blood erythrocytes count (nu mber/volume)Ordered By: Dr. Hanks on 01-07-2023 RBC (Bld) [#/Vol] 4.01 10*6/uL 4.2-5.4 [facility] Blood hemoglobin measurement (mass/volume)Ordered By: Dr. Hanks on 01-07-2023 Hemoglobin (Bld) [Mass/Vol] 12.1 g/dL 12.0-15.0 [facility] Blood hypersegmented neutrop hil countOrdered By: Dr. Hansk on 01-07-2023 Neutrophils.hypersegmente d (Bld) [#/Vol] 2+ [facility] Blood lymphocytes/100 leukoc ytesOrdered By: Dr. Hanks on 01-07-2023 Lymphocytes/100 WBC (Bld) 40.5 % 19-41 [facility] Blood manual differential co mment interpretation (narrative result)Ordered By: Dr. Hanks on 01-07-2023 Manual differential comment Fredy (Bld) [Interp] SCANNED [facility] Blood monocytes/100 leukocyt esOrdered By: Dr. Hanks on 01-07-2023 Monocytes/100 WBC (Bld) 5.8 % 0-10 [facility] Blood platelet mean volumeOr dered By: Dr. Hanks on 01-07-2023 Platelet mean volume (Bld) [Entitic vol] 9.3 fL 6.2-12.0 [facility] Determination of erythrocyte mean corpuscular volume (MCV)Ordered By: Dr. Hanks on 01-07-2023 MCV (RBC) [Entitic vol] 91.3 fL 81-99 [facility] Hematocrit Auto (Bld) [Volum e fraction]Ordered By: Dr. Hanks on 01-07-2023 Hematocrit (Bld) [Volume fraction] 36.6 % 37-47 [facility] Laboratory - Hematology and Cell countsOrdered By: Dr. Hanks on 01-07-2023 Erythrocyte distribution width (RBC) [Entitic vol] 48.9 fL 35.1-43.9 [facility] Erythrocyte distribution width (RBC) [Ratio] 14.6 % 11.6-14.6 [facility] Immature granulocytes/100 WBC (Bld) 0.500 % 0.0-0.9 [facility] Comment on above: IG% - Immature Granu locytes (promyelocytes, myelocytes and metamyelocytes) > 1% indicates that a LEFT SHIFT is Present. MCH (RBC) [Entitic mass] 30.2 pg 27.0-32.0 [facility] Nucleated RBC/100 WBC (Bld) [Ratio] 0 % 0-5 [facility] MCHC Auto (RBC) [Mass/Vol]Or dered By: Dr. Hanks on 01-07-2023 MCHC (RBC) [Mass/Vol] 33.1 g/dL 32-36 [facility] No Panel InformationOrdered By: Dr. Hanks on 01-07-2023 Atypical Lymphocytes 3+ % [facility] Cat Hair Allergen 2.47 kU/L Class III [facility] Common Ragweed (Short) Allergen <0.10 kU/L Class 0 [facility] Immunoglobulin E 26 IU/mL 6-495 [facility] Comment on above: Performed at: [facility] [address] [id number] Director: Zhou Oseguera MD, Phone: [phone] Maple ([place]) Allergen IgE Ab <0.10 kU/L Class 0 [facility] Mouse Urine Allergen IgE Antibody <0.10 kU/L Class 0 [facility] Comment on above: Performed at: [facility] [address] [id number] Director: Zhou Oseguera MD, Phone: [phone] [facility] Comment Comment . [facility] Comment on above: Levels of Specific I gE Class Description of Class ----- < 0.10 0 Negative 0.10 - 0.31 0/I Equivocal/Low 0.32 - 0.55 I Low 0.56 - 1.40 II Moderate 1.41 - 3.90 III High 3.91 - 19.00 IV Very High 19.01 - 100.00 V Very High >100.00 Very High Reactive Lymphocytes 2+ [facility] Denver Tree Allergen <0.10 kU/L Class 0 [facility] Platelets bldOrdered By: Dr. Hanks on 01-07-2023 Platelets (Bld) [#/Vol] 347 10*3/uL 150-450 [facility] Review by pathologistOrdered By: Dr. Hanks on 01-07-2023 Pathologist review Fredy (Unsp spec) [Interp] Reviewed [facility] Comment on above: Previous reported re sult: Amparo bauer Edited by: RGOOD on 01/09/23:0940Leukocytosis. Clinical correlation necessary.Edmar Perdomo M.D. 01/09/23 AMENDED REPORT 01/09/23 0940 PATH REV previously reported as: May foll Rough pigweed specific IgE a ntibody assayOrdered By: Dr. Hanks on 01-07-2023 Rough Pigweed IgE Qn (S) <0.10 kU/L Class 0 [facility] Serum Burmese sycamore IgE antibody assay (units/volume)Ordered By: Dr. Hanks on 01-07-2023 Burmese Wilberforce IgE Qn (S) <0.10 kU/L Class 0 [facility] Serum Aspergillus flavus ant ibody detection by immunodiffusionOrdered By: Dr. Hanks on 01-07-2023 A. flavus Ab Immune diff Ql (S) Negative Neg:<1:1 [facility] Serum Aspergillus fumigatus IgE antibody assay (units/volume)Ordered By: Dr. Hanks on 01-07-2023 A. fumigatus IgE Qn (S) <0.10 kU/L Class 0 [facility] Serum Aspergillus fumigatus antibody detection by immunodiffusionOrdered By: Dr. Hanks on 01-07-2023 A. fumigatus Ab Immune diff Ql (S) Negative Neg:<1:1 [facility] Serum Aspergillus niger anti body detection by immunodiffusionOrdered By: Dr. Hanks on 01-07-2023 A. niger Ab Immune diff Ql (S) Negative Neg:<1:1 [facility] Serum Bermuda grass IgE anti body assay (units/volume)Ordered By: Dr. Hanks on 01-07-2023 Bermuda grass IgE Qn (S) <0.10 kU/L Class 0 [facility] Serum Cladosporium herbarum IgE antibody assay (units/volume)Ordered By: Dr. Hanks on 01-07-2023 C. herbarum IgE Qn (S) <0.10 kU/L Class 0 [facility] Serum Dermatophagoides farin ae specific IgE antibody assay (units/volume)Ordered By: Dr. Hanks on 01-07-2023 Burmese house dust mite IgE Qn (S) <0.10 kU/L Class 0 [facility] Serum house dust mi te IgE antibody assay (units/volume)Ordered By: Dr. Hanks on 01-07-2023 house dust mite IgE Qn (S) <0.10 kU/L Class 0 [facility] Serum Penicillium notatum Ig E antibody assay (units/volume)Ordered By: Dr. Hanks on 01-07-2023 P. notatum IgE Qn (S) <0.10 kU/L Class 0 [facility] Serum Periplaneta americana IgE antibody assay (units/volume)Ordered By: Dr. Hanks on 01-07-2023 Burmese Cockroach IgE Qn (S) <0.10 kU/L Class 0 [facility] Serum Cayman Islander thistle specif ic IgE antibody assayOrdered By: Dr. Hanks on 01-07-2023 Saltwort IgE Qn (S) <0.10 kU/L Class 0 [facility] Serum birch specific IgE ant ibody assayOrdered By: Dr. Hanks on 01-07-2023 Silver Birch IgE Qn (S) <0.10 kU/L Class 0 [facility] Serum black walnut IgE antib ruben assay (units/volume)Ordered By: Dr. Hanks on 01-07-2023 Black [place] IgE Qn (S) <0.10 kU/L Class 0 [facility] Serum cottonwood IgE antibod y assay (units/volume)Ordered By: Dr. Hanks on 01-07-2023 Dickinson IgE Qn (S) <0.10 kU/L Class 0 [facility] Serum dog epithelium IgE ant ibody assay (units/volume)Ordered By: Dr. Hanks on 01-07-2023 Dog epithelium IgE Qn (S) 0.18 kU/L Class 0/I [facility] Serum mountain cedar specifi c IgE antibody assayOrdered By: Dr. Hanks on 01-07-2023 Mountain Juniper IgE Qn (S) <0.10 kU/L Class 0 [facility] Serum pecan or hickory nut I gE antibody assay (units/volume)Ordered By: Dr. Hanks on 01-07-[address] [place] Nut IgE Qn (S) <0.10 kU/L Class 0 [facility] Serum sheep sorrel IgE antib ruben assay (units/volume)Ordered By: Dr. Hanks on 01-07-2023 Sheep [place] IgE Qn (S) <0.10 kU/L Class 0 [facility] Serum akin IgE antibody a ssay (units/volume)Ordered By: Dr. Hanks on 01-07-2023 Akin IgE Qn (S) <0.10 kU/L Class 0 [facility] Serum white rick IgE antibody assay (units/volume)Ordered By: Dr. Hanks on 01-07-2023 White Rick IgE Qn (S) <0.10 kU/L Class 0 [facility] Serum white elm IgE antibody assay (units/volume)Ordered By: Dr. Hanks on 01-07-2023 White Elm IgE Qn (S) <0.10 kU/L Class 0 [facility] Serum white mulberry IgE ant ibody assay (units/volume)Ordered By: Dr. Hanks on 01-07-2023 White mulberry IgE Qn (S) <0.10 kU/L Class 0 [facility] Smudge cell detectionOrdered By: Dr. Hanks on 01-07-2023 Smudge cells LM Ql (Bld) 1+ [facility] Basophil percentageOrdered B y: Dr. Garzon on 09-27-2022 Chloride [Moles/Vol] 106 mmol/L 98-107 [facility] Glucose [Mass/Vol] 108 mg/dL 74-106 [facility] Comment on above: Fasting Glucose resu lt from 100 to 125 mg/dL suggests IMPAIRED HOMEOSTASIS per A.D.A. criteria. Potassium [Moles/Vol] 4.3 mmol/L 3.5-5.1 [facility] Sodium [Moles/Vol] 139 mmol/L 136-145 [facility] Laboratory - Chemistry and C hemistry - challengeOrdered By: Dr. Garzon on 09-27-2022 CO2 [Moles/Vol] 27.0 mmol/L 21.0-32.0 [facility] Urea nitrogen/Creatinine [Mass ratio] 23.7 mg/mg 10-20 [facility] No Panel InformationOrdered By: Dr. Garzon on 09-27-2022 Estimated GFR (MDRD) Amer 105 mL/min >60 [facility] Comment on above: GFR Calc Estimated GFR (MDRD) Non-Af Amer 86 mL/min >60 [facility] Comment on above: Non- GFR Calc Serum or plasma calcium teddy urement (mass/volume)Ordered By: Dr. Garzon on 09-27-2022 Calcium [Mass/Vol] 9.4 mg/dL 8.5-10.1 [facility] Serum or plasma creatinine m easurement (mass/volume)Ordered By: Dr. Garzon on 09-27-2022 Creatinine [Mass/Vol] 0.72 mg/dL 0.55-1.02 [facility] Comment on above: The validity of the calculated GFR & GFRAA in patients over 70 years has not been determined. Clinical correlation is essential. Serum or plasma urea nitroge n measurement (mass/volume)Ordered By: Dr. Garzon on 09-27-2022 Urea nitrogen [Mass/Vol] 17 mg/dL 7-18 [facility] Thin prep Papanicolaou smear with manual screeningOrdered By: Dr. Garzon on 09-27-2022 Thin prep Papanicolaou smear with manual screening 6 5-15 [facility] Absolute lymphocyte countOrd ered By: Dr. Garzon on 09-19-2022 Lymphocytes Auto (Unsp spec) [#/Vol] 2.27 10*3/uL 0.83-4.51 [facility] Basophil percentageOrdered B y: Dr. Garzon on 09-19-2022 Basophil percentage 0-5 SEEN /hpf 0-5 [facility] Basophils/100 WBC (Bld) 0.5 % 0-1 [facility] Bilirubin [Mass/Vol] 0.50 mg/dL 0.20-1.00 [facility] Comment on above: For patients on eltr ombopag therapy, use of Dimension [place] TBIL is not recommended. Chloride [Moles/Vol] 106 mmol/L 98-107 [facility] Cholesterol [Mass/Vol] 177 mg/dL <200 [facility] Comment on above: <200 mg/dL Desirable 200-240 mg/dL Borderline >240 mg/dL High Risk Eosinophils/100 WBC (Bld) 1.6 % 0-5 [facility] Glucose [Mass/Vol] 97 mg/dL 74-106 [facility] Neutrophils (Bld) [#/Vol] 7.0 10*3/uL 2.0-7.7 [facility] Neutrophils/100 WBC (Bld) 69.6 % 47-70 [facility] Potassium [Moles/Vol] 4.4 mmol/L 3.5-5.1 [facility] Protein [Mass/Vol] 7.0 g/dL 6.4-8.2 [facility] Sodium [Moles/Vol] 140 mmol/L 136-145 [facility] Triglyceride [Mass/Vol] 84 mg/dL <199 [facility] Comment on above: The drugs N-Acetylcy steine and Metamizole may falsely depress this assay.Serum Triglycerides Reference Interval Normal <150 mg/dL Borderline high 150 - 199 mg/dL High 200 - 499 mg/dL Very High > or = 500 mg/dL WBC (Bld) [#/Vol] 10.1 10*3/uL 4.4-11.0 [facility] Bilirubin Test strip Ql (U)O rdered By: Dr. Garzon on 09-19-2022 Bilirubin Ql (U) Negative Negative [facility] Blood erythrocytes count (nu mber/volume)Ordered By: Dr. Garzon on 09-19-2022 RBC (Bld) [#/Vol] 4.50 10*6/uL 4.2-5.4 [facility] Blood hemoglobin measurement (mass/volume)Ordered By: Dr. Garzon on 09-19-2022 Hemoglobin (Bld) [Mass/Vol] 13.2 g/dL 12.0-15.0 [facility] Blood lymphocytes/100 leukoc ytesOrdered By: Dr. Garzon on 09-19-2022 Lymphocytes/100 WBC (Bld) 22.5 % 19-41 [facility] Blood monocytes/100 leukocyt esOrdered By: Dr. Garzon on 09-19-2022 Monocytes/100 WBC (Bld) 5.4 % 0-10 [facility] Blood platelet mean volumeOr dered By: Dr. Garzon on 09-19-2022 Platelet mean volume (Bld) [Entitic vol] 10.9 fL 6.2-12.0 [facility] Determination of erythrocyte mean corpuscular volume (MCV)Ordered By: Dr. Garzon on 09-19-2022 MCV (RBC) [Entitic vol] 92.4 fL 81-99 [facility] Hematocrit Auto (Bld) [Volum e fraction]Ordered By: Dr. Garzon on 09-19-2022 Hematocrit (Bld) [Volume fraction] 41.6 % 37-47 [facility] Ketones Test strip Ql (U)Ord ered By: Dr. Garzon on 09-19-2022 Ketones Ql (U) Negative Negative [facility] Laboratory - Chemistry and C hemistry - challengeOrdered By: Dr. Garzon on 09-19-2022 ALP [Catalytic activity/Vol] 72 U/L 45-117 [facility] ALT [Catalytic activity/Vol] 23 U/L 13-56 [facility] CO2 [Moles/Vol] 26.0 mmol/L 21.0-32.0 [facility] Globulin (S) [Mass/Vol] 2.9 g/dL 2.2-4.2 [facility] Urea nitrogen/Creatinine [Mass ratio] 25.0 mg/mg 10-20 [facility] Laboratory - Hematology and Cell countsOrdered By: Dr. Garzon on 09-19-2022 Erythrocyte distribution width (RBC) [Entitic vol] 44.7 fL 35.1-43.9 [facility] Erythrocyte distribution width (RBC) [Ratio] 13.1 % 11.6-14.6 [facility] Immature granulocytes/100 WBC (Bld) 0.400 % 0.0-0.9 [facility] Comment on above: IG% - Immature Granu locytes (promyelocytes, myelocytes and metamyelocytes) > 1% indicates that a LEFT SHIFT is Present. MCH (RBC) [Entitic mass] 29.3 pg 27.0-32.0 [facility] Nucleated RBC/100 WBC (Bld) [Ratio] 0 % 0-5 [facility] MCHC Auto (RBC) [Mass/Vol]Or dered By: Dr. Garzon on 09-19-2022 MCHC (RBC) [Mass/Vol] 31.7 g/dL 32-36 [facility] Mucus LM Ql (Urine sed)Order ed By: Dr. Garzon on 09-19-2022 Mucus Ql (Urine sed) 0 SEEN /hpf [facility] Nitrite Test strip Ql (U)Ord ered By: Dr. Garzon on 09-19-2022 Nitrite Ql (U) Negative Negative [facility] No Panel InformationOrdered By: Dr. Garzon on 09-19-2022 Estimated GFR (MDRD) Amer 104 mL/min >60 [facility] Comment on above: GFR Calc Estimated GFR (MDRD) Non-Af Amer 86 mL/min >60 [facility] Comment on above: Non- GFR Calc Vitamin D 25-Hydroxy 56.6 ng/mL [facility] Comment on above: Vitamin D 25(OH) Sta tus Range Deficiency <20 ng/mL (50nmol/L) Insufficiency 20 - 30 ng/mL (50 - 75 nmol/L) Sufficiency 30 - 100 ng/mL (75 - 250 nmol/L) Toxicity >100 ng/mL (>250 nmol/L) Platelets bldOrdered By: Dr. Garzon on 09-19-2022 Platelets (Bld) [#/Vol] 314 10*3/uL 150-450 [facility] Protein Test strip Ql (U)Ord ered By: Dr. Garzon on 09-19-2022 Protein Ql (U) 15 mg/dl Negative [facility] Serum or plasma albumin teddy urement (mass/volume)Ordered By: Dr. Garzon on 09-19-2022 Albumin [Mass/Vol] 4.1 g/dL 3.2-5.0 [facility] Serum or plasma albumin/glob ulin mass ratioOrdered By: Dr. Garzon on 09-19-2022 Albumin/Globulin [Mass ratio] 1.4 {ratio} 0.9-2.4 [facility] Serum or plasma calcium teddy urement (mass/volume)Ordered By: Dr. Garzon on 09-19-2022 Calcium [Mass/Vol] 9.2 mg/dL 8.5-10.1 [facility] Serum or plasma cholesterol in HDL measurement (mass/volume)Ordered By: Dr. Garzon on 09-19-2022 Cholesterol in HDL [Mass/Vol] 56 mg/dL >40 [facility] Comment on above: The drugs N-Acetylcy steine and Metamizole may falsely depress this assay. Reference Range HDL <40 mg/dL Low HDL Cholesterol HDL >or= 60 mg/dL High HDL Cholesterol Serum or plasma cholesterol in VLDL measurement (mass/volume)Ordered By: Dr. Garzon on 09-19-2022 Cholesterol in VLDL [Mass/Vol] 17 mg/dL 5-40 [facility] Serum or plasma creatinine m easurement (mass/volume)Ordered By: Dr. Garzon on 09-19-2022 Creatinine [Mass/Vol] 0.72 mg/dL 0.55-1.02 [facility] Comment on above: The validity of the calculated GFR & GFRAA in patients over 70 years has not been determined. Clinical correlation is essential. Serum or plasma low density lipoprotein (LDL) cholesterol measurement (mass/volume)Ordered By: Dr. Garzon on 09-19-2022 Cholesterol in LDL [Mass/Vol] 104 mg/dL 0-130 [facility] Serum or plasma urea nitroge n measurement (mass/volume)Ordered By: Dr. Garzon on 09-19-2022 Urea nitrogen [Mass/Vol] 18 mg/dL 7-18 [facility] Squamous epithelial cells de tection in urine sediment by light microscopyOrdered By: Dr. Garzon on 09-19-2022 Epithelial cells.squamous LM Ql (Urine sed) 0-5 SEEN /hpf 5-10 [facility] Thin prep Papanicolaou smear with manual screeningOrdered By: Dr. Garzon on 09-19-2022 Thin prep Papanicolaou smear with manual screening 12 U/L 15-37 [facility] Thin prep Papanicolaou smear with manual screening 8 5-15 [facility] Urine blood detectionOrdered By: Dr. Garzon on 09-19-2022 RBC Ql (U) Negative Negative [facility] RBC Ql (U) 0 SEEN /hpf 0-5 [facility] Urine clarityOrdered By: Dr. Garzon on 09-19-2022 Clarity (U) Sl. Cloudy Clear [facility] Urine color determinationOrd ered By: Dr. Garzon on 09-19-2022 Color (U) Yellow Yellow [facility] Urine glucose detectionOrder ed By: Dr. Garzon on 09-19-2022 Glucose Ql (U) Normal mg/dl Normal [facility] Urine leukocyte esterase det ection by dipstickOrdered By: Dr. Garzon on 09-19-2022 Leukocyte esterase Test strip Ql (U) 25 /ul Negative [facility] Urine pHOrdered By: Dr. Jose chao on 09-19-2022 pH (U) 6.0 [pH] 5.0 - 8.0 [facility] Urine sediment bacteria coun t by microscopy (number/high power field)Ordered By: Dr. Garzon on 09-19-2022 Bacteria LM.HPF (Urine sed) [#/Area] 0 /[HPF] None Seen [facility] Urine specific gravity measu rementOrdered By: Dr. Garzon on 09-19-2022 Specific gravity (U) [Rel density] 1.020 1.002-1.030 [facility] Urobilinogen Auto test strip Ql (U)Ordered By: Dr. Garzon on 09-19-2022 Urobilinogen Ql (U) Normal mg/dl Normal [facility] Absolute lymphocyte counton 01-08-2022 Lymphocytes Auto (Unsp spec) [#/Vol] 2.48 10*3/uL 0.83-4.51 [facility] Work Phone: Basophil percentageon 2021 Basophil percentage 0-5 SEEN /hpf [facility] Work Phone: Basophils/100 WBC (Bld) 0.6 % 0-1 [facility] Work Phone: Bilirubin [Mass/Vol] 0.40 mg/dL 0.20-1.00 [facility] Work Phone: Comment on above: For patients on eltr ombopag therapy, use of Dimension [place] TBIL is not recommended. Chloride [Moles/Vol] 106 mmol/L 98-107 [facility] Work Phone: Cholesterol [Mass/Vol] 228 mg/dL <200 [facility] Work Phone: Comment on above: <200 mg/dL Desirable 200-240 mg/dL Borderline >240 mg/dL High Risk Eosinophils/100 WBC (Bld) 5.1 % 0-5 [facility] Work Phone: Glucose [Mass/Vol] 98 mg/dL 74-106 [facility] Work Phone: Neutrophils (Bld) [#/Vol] 3.0 10*3/uL 2.0-7.7 [facility] Work Phone: Neutrophils/100 WBC (Bld) 47.5 % 47-70 [facility] Work Phone: Potassium [Moles/Vol] 3.9 mmol/L 3.5-5.1 [facility] Work Phone: Protein [Mass/Vol] 7.2 g/dL 6.4-8.2 [facility] Work Phone: Sodium [Moles/Vol] 139 mmol/L 136-145 [facility] Work Phone: Triglyceride [Mass/Vol] 111 mg/dL [facility] Work Phone: Comment on above: The drugs N-Acetylcy steine and Metamizole may falsely depress this assay.Serum Triglycerides Reference Interval Normal <150 mg/dL Borderline high 150 - 199 mg/dL High 200 - 499 mg/dL Very High > or = 500 mg/dL WBC (Bld) [#/Vol] 6.3 10*3/uL 4.4-11.0 [facility] Work Phone: Bilirubin Test strip Ql (U)o n 01-08-2022 Bilirubin Ql (U) Negative Negative [facility] Work Phone: Blood erythrocytes count (nu mber/volume)on 01-08-2022 RBC (Bld) [#/Vol] 4.40 10*6/uL 4.2-5.4 [facility] Work Phone: Blood hemoglobin measurement (mass/volume)on 01-08-2022 Hemoglobin (Bld) [Mass/Vol] 13.3 g/dL 12.0-15.0 [facility] Work Phone: Blood lymphocytes/100 leukoc yteson 01-08-2022 Lymphocytes/100 WBC (Bld) 39.7 % 19-41 [facility] Work Phone: Blood monocytes/100 leukocyt eson 01-08-2022 Monocytes/100 WBC (Bld) 6.9 % 0-10 [facility] Work Phone: Blood platelet mean volumeon 01-08-2022 Platelet mean volume (Bld) [Entitic vol] 10.5 fL 6.2-12.0 [facility] Work Phone: Determination of erythrocyte mean corpuscular volume (MCV)on 01-08-2022 MCV (RBC) [Entitic vol] 91.6 fL 81-99 [facility] Work Phone: Hematocrit Auto (Bld) [Volum e fraction]on 01-08-2022 Hematocrit (Bld) [Volume fraction] 40.3 % 37-47 [facility] Work Phone: Ketones Test strip Ql (U)on 01-08-2022 Ketones Ql (U) Negative Negative [facility] Work Phone: Laboratory - Chemistry and C hemistry - challengeon 01-08-2022 ALP [Catalytic activity/Vol] 70 U/L 45-117 [facility] Work Phone: ALT [Catalytic activity/Vol] 25 U/L 13-56 [facility] Work Phone: CO2 [Moles/Vol] 29.0 mmol/L 21.0-32.0 [facility] Work Phone: Globulin (S) [Mass/Vol] 3.1 g/dL 2.2-4.2 [facility] Work Phone: Urea nitrogen/Creatinine [Mass ratio] 22.0 mg/mg 10-20 [facility] Work Phone: Laboratory - Hematology and Cell countson 01-08-2022 Erythrocyte distribution width (RBC) [Entitic vol] 46.9 fL 35.1-43.9 [facility] Work Phone: Erythrocyte distribution width (RBC) [Ratio] 13.8 % 11.6-14.6 [facility] Work Phone: Immature granulocytes/100 WBC (Bld) 0.200 % 0.0-0.9 [facility] Work Phone: Comment on above: IG% - Immature Granu locytes (promyelocytes, myelocytes and metamyelocytes) > 1% indicates that a LEFT SHIFT is Present. MCH (RBC) [Entitic mass] 30.2 pg 27.0-32.0 [facility] Work Phone: Nucleated RBC/100 WBC (Bld) [Ratio] 0 % 0-5 [facility] Work Phone: MCHC Auto (RBC) [Mass/Vol]on 01-08-2022 MCHC (RBC) [Mass/Vol] 33.0 g/dL 32-36 [facility] Work Phone: Mucus LM Ql (Urine sed)on Mucus Ql (Urine sed) 0 SEEN /hpf [facility] Work Phone: Nitrite Test strip Ql (U)on 01-08-2022 Nitrite Ql (U) Negative Negative [facility] Work Phone: No Panel Informationon 01-08 Estimated GFR (MDRD) Amer 121 mL/min >60 [facility] Work Phone: Comment on above: GFR Calc Estimated GFR (MDRD) Non-Af Amer 100 mL/min >60 [facility] Work Phone: Comment on above: Non- GFR Calc Thyroid Stimulating Hormone (TSH) 1.14 uIU/mL 0.358-3.74 [facility] Work Phone: Vitamin D 25-Hydroxy 37.3 ng/mL [facility] Work Phone: Comment on above: Vitamin D 25(OH) Sta tus Range Deficiency <20 ng/mL (50nmol/L) Insufficiency 20 - 30 ng/mL (50 - 75 nmol/L) Sufficiency 30 - 100 ng/mL (75 - 250 nmol/L) Toxicity >100 ng/mL (>250 nmol/L) Platelets bldon 01-08-2022 Platelets (Bld) [#/Vol] 300 10*3/uL 150-450 [facility] Work Phone: Protein Test strip Ql (U)on 01-08-2022 Protein Ql (U) Negative Negative [facility] Work Phone: Serum or plasma albumin teddy urement (mass/volume)on 01-08-2022 Albumin [Mass/Vol] 4.1 g/dL 3.2-5.0 [facility] Work Phone: Serum or plasma albumin/glob ulin mass ratioon 01-08-2022 Albumin/Globulin [Mass ratio] 1.3 {ratio} 0.9-2.4 [facility] Work Phone: Serum or plasma calcium teddy urement (mass/volume)on 01-08-2022 Calcium [Mass/Vol] 9.0 mg/dL 8.5-10.1 [facility] Work Phone: Serum or plasma cholesterol in HDL measurement (mass/volume)on 01-08-2022 Cholesterol in HDL [Mass/Vol] 46 mg/dL [facility] Work Phone: Comment on above: The drugs N-Acetylcy steine and Metamizole may falsely depress this assay. Reference Range HDL <40 mg/dL Low HDL Cholesterol HDL >or= 60 mg/dL High HDL Cholesterol Serum or plasma cholesterol in VLDL measurement (mass/volume)on 01-08-2022 Cholesterol in VLDL [Mass/Vol] 22 mg/dL 5-40 [facility] Work Phone: Serum or plasma creatinine m easurement (mass/volume)on 01-08-2022 Creatinine [Mass/Vol] 0.64 mg/dL 0.55-1.02 [facility] Work Phone: Comment on above: The validity of the calculated GFR & GFRAA in patients over 70 years has not been determined. Clinical correlation is essential. Serum or plasma low density lipoprotein (LDL) cholesterol measurement (mass/volume)on 01-08-2022 Cholesterol in LDL [Mass/Vol] 160 mg/dL 0-130 [facility] Work Phone: Serum or plasma urea nitroge n measurement (mass/volume)on 01-08-2022 Urea nitrogen [Mass/Vol] 14 mg/dL 7-18 [facility] Work Phone: Squamous epithelial cells de tection in urine sediment by light microscopyon 01-08-2022 Epithelial cells.squamous LM Ql (Urine sed) 0-5 SEEN /hpf [facility] Work Phone: Thin prep Papanicolaou smear with manual screeningon 01-08-2022 Thin prep Papanicolaou smear with manual screening 15 U/L 15-37 [facility] Work Phone: Thin prep Papanicolaou smear with manual screening 4 5-15 [facility] Work Phone: Urine blood detectionon 12-19 RBC Ql (U) Negative Negative [facility] Work Phone: RBC Ql (U) 0 SEEN /hpf [facility] Work Phone: Urine clarityon 01-08-2022 Clarity (U) Sl. Cloudy Clear [facility] Work Phone: Urine color determinationon 01-08-2022 Color (U) Yellow Yellow [facility] Work Phone: Urine glucose detectionon Glucose Ql (U) Normal mg/dl Normal [facility] Work Phone: Urine leukocyte esterase det ection by dipstickon 01-08-2022 Leukocyte esterase Test strip Ql (U) 500 /ul Negative [facility] Work Phone: Urine pHon 01-08-2022 pH (U) 7.0 [pH] [facility] Work Phone: Urine sediment bacteria coun t by microscopy (number/high power field)on 01-08-2022 Bacteria LM.HPF (Urine sed) [#/Area] RARE /hpf None Seen [facility] Work Phone: Urine specific gravity measu rementon 01-08-2022 Specific gravity (U) [Rel density] 1.010 [facility] Work Phone: Urobilinogen Auto test strip Ql (U)on 01-08-2022 Urobilinogen Ql (U) Normal mg/dl Normal [facility] Work Phone: Vital Signs Date Time Vital Sign Value Performing Clinician Faci lity 02-07-2024 08:35-0400 Body temperature 98.1 [degF] Dr. Jose Garzon Work Phone: [facility] 02-07-2024 08:35-0400 Diastolic blood pressure 61 mm[Hg] Dr. Jose Garzon Work Phone: [facility] 02-07-2024 08:35-0400 Heart rate 76 /min Dr. Jose Garzon Work Phone: [facility] 02-07-2024 08:35-0400 Respiratory rate 16 /min Dr. Jose Garzon Work Phone: [facility] 02-07-2024 08:35-0400 SaO2% (BldA) [Mass fraction] 94 % Dr. Jose Garzon Work Phone: [facility] 02-07-2024 08:35-0400 Systolic blood pressure 117 mm[Hg] Dr. Jose Garzon Work Phone: [facility] 02-07-2024 03:54-0400 Inhaled oxygen flow rate 1 L/min Dr. Jose Garzon Work Phone: [facility] 02-06-2024 16:11-0400 Body height 154.[address] Jose Garzon Work Phone: [facility] 02-06-2024 16:11-0400 Body mass index (BMI) [Ratio] 27.1 kg/m2 Dr. Jose Garzon Work Phone: [facility] 02-06-2024 16:11-0400 Body weight [address] Jose Garzon Work Phone: [facility] 01-21-2024 13:36-0400 Diastolic blood pressure 91 mm[Hg] Dr. Jose Garzon Work Phone: [facility] 01-21-2024 13:36-0400 Heart rate 89 /min Dr. Jose Garzon Work Phone: [facility] 01-21-2024 13:36-0400 Respiratory rate 17 /min Dr. Jose Garzon Work Phone: [facility] 01-21-2024 13:36-0400 SaO2% (BldA) [Mass fraction] 95 % Dr. Jose Garzon Work Phone: [facility] 01-21-2024 13:36-0400 Systolic blood pressure 161 mm[Hg] Dr. Jose Garzon Work Phone: [facility] 01-13-2024 15:02-0400 Body height 154.[address] Jose Garzon Work Phone: [facility] 01-13-2024 15:02-0400 Body mass index (BMI) [Ratio] 27.9 kg/m2 Dr. Jose Garzon Work Phone: [facility] 01-13-2024 15:02-0400 Body temperature 98.6 [degF] Dr. Jose Garzon Work Phone: [facility] 01-13-2024 15:02-0400 Body weight 67.[address] Jose Garzon Work Phone: [facility] 01-13-2024 15:02-0400 Diastolic blood pressure 87 mm[Hg] Dr. Jose Garzon Work Phone: [facility] 01-13-2024 15:02-0400 Heart rate 92 /min Dr. Jose Garzon Work Phone: [facility] 01-13-2024 15:02-0400 Respiratory rate 18 /min Dr. Jose Garzon Work Phone: [facility] 01-13-2024 15:02-0400 SaO2% (BldA) [Mass fraction] 95 % Dr. Jose Garzon Work Phone: [facility] 01-13-2024 15:02-0400 Systolic blood pressure 131 mm[Hg] Dr. Jose Garzon Work Phone: [facility] 12-29-2023 12:55-0400 Body weight 65.[address] Jose Garzon Work Phone: [facility] 12-28-2023 11:29-0400 Body temperature 97.3 [degF] Dr. Jose Garzon Work Phone: [facility] 12-28-2023 11:29-0400 Diastolic blood pressure 93 mm[Hg] Dr. Jose Garzon Work Phone: [facility] 12-28-2023 11:29-0400 Heart rate 96 /min Dr. Jose Garzon Work Phone: [facility] 12-28-2023 11:29-0400 Respiratory rate 16 /min Dr. Jose Garzon Work Phone: [facility] 12-28-2023 11:29-0400 SaO2% (BldA) [Mass fraction] 98 % Dr. Jose Garzon Work Phone: [facility] 12-28-2023 11:29-0400 Systolic blood pressure 133 mm[Hg] Dr. Jose Garzon Work Phone: [facility] 12-28-2023 08:43-0400 Body height 154.[address] Jose Garzon Work Phone: [facility] 12-28-2023 08:43-0400 Body mass index (BMI) [Ratio] 27.6 kg/m2 Dr. Jose Garzon Work Phone: [facility] 12-28-2023 08:43-0400 Body weight 66.[address] Jose Garzon Work Phone: [facility] 12-15-2023 15:46-0500 Body height 154.[address] Jose Garzon Work Phone: [facility] 12-15-2023 15:42-0500 Body mass index (BMI) [Ratio] 27.5 kg/m2 Dr. Jose Garzon Work Phone: [facility] 12-15-2023 15:42-0500 Body temperature 98.8 [degF] Dr. Jose Garzon Work Phone: [facility] 12-15-2023 15:42-0500 Body weight 65.[address] Jose Garzon Work Phone: [facility] 12-15-2023 15:42-0500 Diastolic blood pressure 92 mm[Hg] Dr. Jose Garzon Work Phone: [facility] 12-15-2023 15:42-0500 Heart rate 91 /min Dr. Jose Garzon Work Phone: [facility] 12-15-2023 15:42-0500 Respiratory rate 18 /min Dr. Jose Garzon Work Phone: [facility] 12-15-2023 15:42-0500 SaO2% (BldA) [Mass fraction] 98 % Dr. Jose Garzon Work Phone: [facility] 12-15-2023 15:42-0500 Systolic blood pressure 138 mm[Hg] Dr. Jose Garzon Work Phone: [facility] 12-04-2023 15:03-0500 Body height 154.[address] Jose Garzon Work Phone: [facility] 12-04-2023 15:03-0500 Body mass index (BMI) [Ratio] 27.4 kg/m2 Dr. Jose Garzon Work Phone: [facility] 12-04-2023 15:03-0500 Body temperature 97.4 [degF] Dr. Jose Garzon Work Phone: [facility] 12-04-2023 15:03-0500 Body weight 65.[address] Jose Garzon Work Phone: [facility] 12-04-2023 15:03-0500 Diastolic blood pressure 90 mm[Hg] Dr. Jose Garzon Work Phone: [facility] 12-04-2023 15:03-0500 Heart rate 100 /min Dr. Jose Garzon Work Phone: [facility] 12-04-2023 15:03-0500 Respiratory rate 17 /min Dr. Jose Garzon Work Phone: [facility] 12-04-2023 15:03-0500 SaO2% (BldA) [Mass fraction] 97 % Dr. Jose Garzon Work Phone: [facility] 12-04-2023 15:03-0500 Systolic blood pressure 138 mm[Hg] Dr. Jose Garzon Work Phone: [facility] 10-26-2023 09:44-0500 Body temperature 101 [degF] Dr. Jose Garzon Work Phone: [facility] 10-26-2023 09:44-0500 Respiratory rate 16 /min Dr. Jose Garzon Work Phone: [facility] 10-26-2023 06:41-0500 Body height 157.[address] Jose Garzon Work Phone: [facility] 10-26-2023 06:41-0500 Body mass index (BMI) [Ratio] 26.5 kg/m2 Dr. Jose Garzon Work Phone: [facility] 10-26-2023 06:41-0500 Body weight 65.[address] Jose Garzon Work Phone: [facility] 10-26-2023 06:41-0500 Diastolic blood pressure 80 mm[Hg] Dr. Jose Garzon Work Phone: [facility] 10-26-2023 06:41-0500 Heart rate 115 /min Dr. Jose Garzon Work Phone: [facility] 10-26-2023 06:41-0500 SaO2% (BldA) [Mass fraction] 97 % Dr. Jose Garzon Work Phone: [facility] 10-26-2023 06:41-0500 Systolic blood pressure 121 mm[Hg] Dr. Jose Garzon Work Phone: [facility] 10-14-2023 11:20-0500 Body mass index (BMI) [Ratio] 27.1 kg/m2 Dr. Jose Garzon Work Phone: [facility] 10-14-2023 11:20-0500 Body temperature 97.2 [degF] Dr. Jose Garzon Work Phone: [facility] 10-14-2023 11:20-0500 Body weight 67.[address] Jose Garzon Work Phone: [facility] 10-14-2023 11:20-0500 Diastolic blood pressure 79 mm[Hg] Dr. Jose Garzon Work Phone: [facility] 10-14-2023 11:20-0500 Heart rate 95 /min Dr. Jose Garzon Work Phone: [facility] 10-14-2023 11:20-0500 Respiratory rate 18 /min Dr. Jose Garzon Work Phone: [facility] 10-14-2023 11:20-0500 SaO2% (BldA) [Mass fraction] 98 % Dr. Jose Garzon Work Phone: [facility] 10-14-2023 11:20-0500 Systolic blood pressure 112 mm[Hg] Dr. Jsoe Garzon Work Phone: [facility] 02-13-2023 06:42-0400 Body height 157.[address] Jose Garzon Work Phone: [facility] 02-13-2023 06:42-0400 Body mass index (BMI) [Ratio] 27.8 kg/m2 Dr. Jose Garzon Work Phone: [facility] 02-13-2023 06:42-0400 Body temperature 97.8 [degF] Dr. Jose Garzon Work Phone: [facility] 02-13-2023 06:42-0400 Body weight 68.[address] Jose Garzon Work Phone: [facility] 02-13-2023 06:42-0400 Diastolic blood pressure 80 mm[Hg] Dr. Jose Garzon Work Phone: [facility] 02-13-2023 06:42-0400 Heart rate 86 /min Dr. Jose Garzon Work Phone: [facility] 02-13-2023 06:42-0400 Respiratory rate 18 /min Dr. Jose Garzon Work Phone: [facility] 02-13-2023 06:42-0400 SaO2% (BldA) [Mass fraction] 97 % Dr. Jose Garzon Work Phone: [facility] 02-13-2023 06:42-0400 Systolic blood pressure 135 mm[Hg] Dr. Jose Garzon Work Phone: [facility] 01-02-2023 06:40-0400 Body height 157.[address] Jose Garzon Work Phone: [phone] [place] [address] 01-02-2023 06:40-0400 Body mass index (BMI) [Ratio] 27.4 kg/m2 Dr. Jose Garzon Work Phone: [facility] 01-02-2023 06:40-0400 Body temperature 95.5 [degF] Dr. Jose Garzon Work Phone: [facility] 01-02-2023 06:40-0400 Body weight 68.[address] Jose Garzon Work Phone: [facility] 01-02-2023 06:40-0400 Diastolic blood pressure 77 mm[Hg] Dr. Jose Garzon Work Phone: [facility] 01-02-2023 06:40-0400 Heart rate 114 /min Dr. Jose Garzon Work Phone: [facility] 01-02-2023 06:40-0400 Respiratory rate 20 /min Dr. Jose Garzon Work Phone: [facility] 01-02-2023 06:40-0400 SaO2% (BldA) [Mass fraction] 97 % Dr. Jose Garzon Work Phone: [facility] 01-02-2023 06:40-0400 Systolic blood pressure 112 mm[Hg] Dr. Jose Garzon Work Phone: [facility] 12-28-2022 18:49-0500 Respiratory rate 16 /min [facility] 12-28-2022 18:49-0500 SaO2% (BldA) [Mass fraction] 98 % [facility] 12-28-2022 17:46-0500 Heart rate 110 /min [facility] 12-28-2022 16:38-0500 Diastolic blood pressure 110 mm[Hg] [facility] 12-28-2022 16:38-0500 Systolic blood pressure 120 mm[Hg] [facility] 12-28-2022 16:31-0500 Body height 157.48 cm [facility] 12-28-2022 16:31-0500 Body mass index (BMI) [Ratio] 27.8 kg/m2 [facility] 12-28-2022 16:31-0500 Body temperature 99 [degF] [facility] 12-28-2022 16:31-0500 Body weight 69 kg [facility] 01-10-2022 21:05-0400 Respiratory rate 18 /min [facility] Work Phone: 01-10-2022 20:43-0400 Body height 157.48 cm [facility] Work Phone: 01-10-2022 20:43-0400 Body mass index (BMI) [Ratio] 27.8 kg/m2 [facility] Work Phone: 01-10-2022 20:43-0400 Body temperature 96.9 [degF] [facility] Work Phone: 01-10-2022 20:43-0400 Body weight 69 kg [facility] Work Phone: 01-10-2022 20:43-0400 Diastolic blood pressure 127 mm[Hg] [facility] Work Phone: 01-10-2022 20:43-0400 Heart rate 91 /min [facility] Work Phone: 01-10-2022 20:43-0400 SaO2% (BldA) [Mass fraction] 93 % [facility] Work Phone: 01-10-2022 20:43-0400 Systolic blood pressure 161 mm[Hg] [facility] Work Phone: Encounters Encounter Date Encounter Type Care Provider Facility Start: 04-01-2025 ambulatory Jose Garzon Facilit y:[facility] Start: 03-30-2025 ambulatory Jose Garzon Facilit y:[facility] Start: 02-22-2025 End: 02-22-2025 ambulatory Jose Garzon Facility:[facility] Start: 02-08-2025 End: 02-08-2025 ambulatory Jose Garzon Facility:[facility] Start: 12-30-2024 End: 12-30-2024 ambulatory Jose Garzon Facility:[facility] Start: 11-28-2024 End: 11-28-2024 ambulatory Jose Garzon Facility:[facility] Start: 10-26-2024 End: 10-26-2024 ambulatory Jose Garzon Facility:[facility] Start: 10-22-2024 End: 10-22-2024 ambulatory Jose Garzon Facility:[facility] Start: 10-07-2024 End: 10-07-2024 ambulatory Jose Garzon Facility:[facility] Start: 08-23-2024 End: 08-23-2024 ambulatory Jose Garzon Facility:[facility] Start: 08-09-2024 End: 08-09-2024 ambulatory Jose Garzon Facility:[facility] Start: 07-01-2024 End: 07-01-2024 ambulatory Jose Garzon Facility:[facility] Start: 06-24-2024 End: 06-24-2024 ambulatory Jose Garzon Facility:[facility] Start: 06-09-2024 End: 06-09-2024 ambulatory Jose Garzon Facility:[facility] Start: 05-27-2024 End: 05-27-2024 ambulatory Jose Garzon Facility:[facility] Start: 05-24-2024 End: 05-24-2024 ambulatory Jose Garzon Facility:[facility] Start: 05-19-2024 End: 05-19-2024 ambulatory Jose Garzon Facility:[facility] Start: 05-12-2024 End: 05-12-2024 ambulatory Jose Garzon Facility:[facility] Start: 05-06-2024 End: 05-06-2024 ambulatory Jose Garzon Facility:[facility] Start: 05-05-2024 End: 05-05-2024 ambulatory Jose Garzon Facility:[facility] Start: 04-30-2024 ambulatory Jose Garzon Facilit y:[facility] Start: 04-27-2024 ambulatory Jose Garzon Facilit y:[facility] Start: 04-27-2024 End: 04-30-2024 Evaluation and management of inpatient Víctor German Facility:[facility] Start: 04-26-2024 ambulatory Keven Joshi Facility: [facility] Start: 04-21-2024 ambulatory Keven Joshi Facility: [facility] Start: 04-19-2024 ambulatory Keven Joshi Facility: [facility] Start: 04-14-2024 End: 04-14-2024 ambulatory Jose Garzon Facility:[facility] Start: 02-07-2024 Non-patient / Non-visit Dr. Armida Garzon Work Phone: [facility] Start: 02-06-2024 End: 02-07-2024 Evaluation and management of inpatient Dr. Jose Garzon Work Phone: [facility] Work Phone: Start: 02-06-2024 End: 02-07-[address] Jose Garzon Work Phone: [facility] Work Phone: Start: 02-06-2024 Non-patient / Non-visit Dr. Armida Garzon Work Phone: [facility] Start: 01-28-2024 End: 01-28-[address] Jose Garzon Work Phone: [facility] Work Phone: Start: 01-28-2024 End: 01-28-[address] Jose Garzon Work Phone: [facility] Start: 01-27-2024 End: 01-27-2024 Non-patient / Non-visit Dr. Jose Garzon Work Phone: [facility] Work Phone: Start: 01-21-2024 End: 01-21-[address] Jose Garzon Work Phone: [facility] Work Phone: Start: 01-13-2024 End: 01-13-[address] Jose Garzon Work Phone: [facility] Work Phone: Start: 01-07-2024 End: 01-07-[address] Jose Garzon Work Phone: [facility] Work Phone: Start: 01-07-2024 End: 01-07-[address] Jose Garzon Work Phone: [facility] Work Phone: Start: 12-28-2023 End: 12-28-2023 Emergency department patient visit Dr. Jose Garzon Work Phone: [facility]-Emergency Department Work Phone: Start: 12-23-[address] Jose Garzon Work Phone: [facility] Start: 12-17-2023 End: 12-17-[address] Jose Garzon Work Phone: [facility] Work Phone: Start: 12-17-2023 End: 12-17-[address] Jose Garzon Work Phone: [facility] Work Phone: Start: 12-15-[address] Jose Garzon Work Phone: [facility] Start: 12-15-2023 End: 12-15-[address] Jose Garzon Work Phone: [facility] Work Phone: Start: 12-11-2023 Non-patient / Non-visit Dr. Armida Garzon Work Phone: [facility] Start: 12-04-2023 End: 12-04-[address] Jose Garzon Work Phone: [facility] Work Phone: Start: 12-04-2023 End: 12-04-[address] Jose Garzon Work Phone: [facility]-Laboratory, Specimen Work Phone: Start: 12-04-2023 End: 12-04-[address] Jose Garzon Work Phone: [facility] Work Phone: Start: 12-01-2023 End: 12-01-[address] Jose Garzon Work Phone: [facility] Work Phone: Start: 12-01-2023 End: 12-01-[address] Jose Garzon Work Phone: [facility] Work Phone: Start: 11-27-2023 End: 11-27-[address] Jose Garzon Work Phone: [facility] Work Phone: Start: 11-27-2023 End: 11-27-[address] Jose Garzon Work Phone: [facility]-Outpatient Bone Densitometry Work Phone: Start: 11-06-2023 End: 11-06-[address] Jose Garzon Work Phone: [facility] Work Phone: Start: 11-06-2023 End: 11-06-[address] Jose Garzon [facility] Phone[facility] Start: 10-26-2023 End: 10-26-2023 Emergency department patient visit Dr. Jose Garzon Work Phone: [facility]-Emergency Department Work Phone: Start: 10-14-2023 End: 10-14-[address] Jose Garzon Work Phone: [facility]-Pulmonary Medicine [facility] Work Phone: Start: 10-11-2023 End: 10-11-2023 [facility] Start: 07-18-2023 End: 07-18-[address] Jose Garzon Work Phone: [facility]-Laboratory, [place] Work Phone: Start: 04-15-2023 End: 04-15-[address] Jose Garzon Work Phone: [facility] Work Phone: Start: 04-15-2023 End: 04-15-[address] Jose Garzon Work Phone: [facility] Work Phone: Start: 04-11-2023 ambulatory Kimberlee ([facility]) [facility] Comment on above: Population Health Na vigation Outreach ([place] care gap) Start: 03-27-2023 End: 03-27-[address] Jose Garzon Work Phone: [facility] Work Phone: Start: 02-25-2023 End: 02-25-[address] Jose Garzon Work Phone: [facility] Work Phone: Start: 02-25-2023 End: 02-25-[address] Jose Garzon Work Phone: [facility] Start: 02-19-2023 End: 02-19-[address] Jose Garzon Work Phone: [facility] Work Phone: Start: 02-19-2023 End: 02-19-[address] Jose Garzon Work Phone: [facility] Start: 02-13-2023 End: 02-13-[address] Jose Gar[facility] Start: 01-22-2023 Non-patient / Non-visit Dr. Armida Garzon Work Phone: [facility] Start: 01-21-2023 End: 01-21-[address] Jose Garzon Work Phone: [facility] Work Phone: Start: 01-21-2023 End: 01-21-[address] Jose Garzon Work Phone: [facility]-Pulmonary Services/Neurology Start: 01-07-2023 End: 01-07-[address] Jose Garzon Work Phone: [facility] Work Phone: Start: 01-07-2023 End: 01-07-[address] Jose Garzon [facility] Start: 01-02-2023 End: 01-02-[address] Jose Garzon [facility] Start: 12-28-2022 End: 12-28-2022 Emergency department patient visit [facility]-Emergency Department Start: 09-27-2022 End: 09-27-2022 ambulatory [facility] Work Phone: Start: 09-27-2022 End: 09-27-2022 Patient encounter procedure [facility] Start: 09-19-2022 End: 09-19-2022 ambulatory [facility] Work Phone: Start: 09-19-2022 End: 09-19-2022 Patient encounter procedure [facility] Start: 08-20-2022 ambulatory Adalgisa Ybarra [employer] Comment on above: Population Health Na vigation Outreach ([place] Care Gap ) Start: 01-10-2022 End: 01-10-2022 Emergency department patient visit [facility]-Emergency Department Start: 01-08-2022 End: 01-08-2022 Patient encounter procedure [facility] Start: 10-30-2021 End: 10-30-2021 Patient encounter procedure [facility]patient [facility] Start: 10-11-2021 Patient encounter procedure [facility] Start: 09-26-2021 Patient encounter procedure [facility]-Ultrasound, [facility] Procedures Date Procedure Procedure Detail Performing Clinician Start: 02-06-[address] Jose meza Work Phone: Start: 02-06-2024 Radionuclide sentinel lymph node study Dr. Jose Garzon Work Phone: Start: 01-07-2024 MRI of abdomen with contrast Dr. Jose Garzon Work Phone: Start: 12-28-2023 SARS-CoV-2, Influenza & RSV (PCR) Dr. Jose Garzon Work Phone: Start: 12-28-2023 Plain chest X-ray Dr. Jose Garzon Work Phone: Start: 12-23-2023 Positron emission tomography with computed tomography Dr. Jose Garzon Work Phone: Start: 12-17-2023 MRI of bilateral breasts with contrast Dr. Jose Garzon Work Phone: Start: 12-01-2023 End: 12-01-[address] Jose orozco Work Phone: Start: 11-27-2023 Dual energy X-ray absorptiometry Dr. Jose Garzon Work Phone: Start: 11-27-[address] Jose Garzon Work Phone: Start: 11-06-2023 Plain chest X-ray Dr. Jose Garzon Work Phone: Start: 10-26-2023 Bacteria identified in Blood by Culture Dr. Jose Garzon Work Phone: Start: 10-26-2023 SARS-CoV-2, Influenza & RSV (PCR) Dr. Jose Garzon Work Phone: Start: 10-26-2023 Plain chest X-ray Dr. Jose Garzon Work Phone: Start: 03-27-2023 X-ray of lumbosacral spine Dr. Jose chao Work Phone: Start: 03-27-2023 Plain x-ray of pelvis and lower extremity Dr. Jose Garzon Work Phone: Start: 02-25-2023 US scan of thyroid Dr. Jose Garzon Work Phone: Start: 12-28-2022 Plain chest X-ray Dr. Jose Garzon Work Phone: Start: 10-30-2021 Dual energy X-ray absorptiometry Start: 10-11-2021 Screening mammography Start: 09-26-2021 Thyroid Start: 06-27-2016 Colonoscopy Adalgisa Lear Start: 05-14-2011 Mammography Adalgisa Lear History of bilateral mastectomy S/P bilateral mastectomy Dr. Jose Garzon Work Phone: Plan of Treatment Date Care Activity Detail Author Start: 02-07-2024 Patient discharge [facility] Start: 02-06-2024 Oxygen therapy [facility] Start: 02-06-2024 Application of intermittent pneumatic compression device [facility] Start: 02-06-2024 Following clinical pathway protocol [facility] Start: 02-06-2024 Catheterization of vein [facility] Start: 02-06-2024 Incentive spirometry [facility] Start: 02-06-2024 Maintenance of drainage tube [facility] Start: 02-06-2024 Measuring intake and output [facility] Start: 02-06-2024 Notification of physician [facility] Start: 02-06-2024 Vital signs measurements [facility] Start: 02-06-2024 [facility] Start: 02-06-2024 Ambulation without limitation [facility] Start: 02-06-2024 Admission procedure [facility] Start: 02-06-2024 Inhalation therapy procedure [facility] Start: 12-28-2023 [facility] Start: 12-23-2023 Positron emission tomography with computed tomography [facility] Start: 12-11-2023 Patient referral [facility] Work Phone: Start: 10-26-2023 Bacteria identified in Blood by Culture Blood Culture [facility] Start: 10-26-2023 [facility] Start: 10-26-2023 Blood culture [facility] Start: 06-20-2023 Influenza vaccination INFLUENZA (Season Ended) [facility] Start: 12-28-2022 Plain chest X-ray Chest PA and Lateral [facility] Start: 12-28-2022 XR Chest PA and Lateral [facility] Start: 12-28-2022 [facility] Start: 10-20-2022 ADVANCE DIRECTIVE DISCUSSION ADVANCE DIRECTIVE DISCUSSION [facility] Start: 10-20-2022 DEPRESSION ASSESSMENT DEPRESSION ASSESSMENT [facility] Start: 06-20-2022 Influenza vaccination INFLUENZA (#1) [facility] Start: 10-20-2021 ADVANCE DIRECTIVE DISCUSSION ADVANCE DIRECTIVE DISCUSSION [facility] Start: 10-20-2021 DEPRESSION ASSESSMENT DEPRESSION ASSESSMENT [facility] Start: 2021 BONE DENSITY BONE DENSITY [facility] Start: 2021 PNEUMOCOCCAL: 65+ (1 - PCV) PNEUMOCOCCAL: 65+ (1 - PCV) [facility] Start: 11-28-2018 DIABETES SCREEN DIABETES SCREEN [facility] Start: 06-27-2017 Colonoscopy COLONOSCOPY [facility] Start: 06-27-2017 COLORECTAL CANCER SCREENING COLORECTAL CANCER SCREENING [facility] Start: 2016 HEPATITIS B (1 of 3 - Risk 3-dose series) HEPATITIS B (1 of 3 - Risk 3-dose series) [facility] Start: 05-14-2012 Mammography MAMMOGRAM [facility] Start: 2006 SHINGRIX VACCINE (1 of 2) SHINGRIX VACCINE (1 of 2) [facility] Start: 2001 COLOGUARD (FIT-DNA) COLOGUARD (FIT-DNA) [facility] Start: [address] COLONOGRAPHY [facility] Start: 2001 FECAL OCCULT BLOOD FECAL OCCULT BLOOD [facility] Start: 2001 LIPID SCREEN LIPID SCREEN [facility] Start: 2001 SIGMOIDOSCOPY SIGMOIDOSCOPY [facility] Start: 1975 Urine microalbumin profile DTAP,TDAP,TD (1 - Tdap) [facility] Start: 1974 HEPATITIS C SCREENING HEPATITIS C SCREENING [facility] Start: 1974 MMR (1 of 2 - Risk 2-dose series) MMR (1 of 2 - Risk 2-dose series) [facility] Start: 1966 MENINGOCOCCAL B: Consider based on risk (1 of 4 - Increased Risk Bexsero 2-dose series) MENINGOCOCCAL B: Consider based on risk (1 of 4 - Increased Risk Bexsero 2-dose series) [facility] Start: 1957 HEPATITIS A (1 of 2 - Risk 2-dose series) HEPATITIS A (1 of 2 - Risk 2-dose series) [facility] Start: 02-12-1957 COVID-19 VACCINE (#1) COVID-19 VACCINE (#1) [facility] Measurement of respi ratory function [facility] MR Breast - bilatera l WO and W contrast IV [facility] Patient Education [facility] Work Phone: Patient referral [facility] Work Phone: Positron emission tomography with computed tomography [facility] Immunizations Immunization Date Immunization Notes Care Provider Kelsey hoffmann 02-23-2017 tetanus toxoid, redu carolyne diphtheria toxoid, and acellular pertussis vaccine, adsorbed [facility] Payers Date Payer Category Payer Medicare [id number] 2023 Self-pay [id number] 2022 Unknown [id number] 2017 Unknown LAITH LANCASTER PPO [id number] 2017-Present [phone] [address] [place] [address] PPO [id number] 2009 Private Health Insurance [facility] [id number] 1955 Unknown [id number] 51 Medicare [id number] Unknown [id number] Unknown [id number] 12.05.840.1.535318.3.579.2.4 62 Unknown [id number] 2.16.840.1.586064.3.579.2.4 62 Unknown [id number] 2.16.840.1.913108.3.579.2.4 62 Unknown [id number] 2.16.840.1.401489.3.579.2.4 62 Unknown [id number] 2.16.840.1.197005.3.579.2.4 62 Unknown [id number] 2.16.840.1.092702.3.579.2.4 62 Unknown [id number] 2.16.840.1.649371.3.579.2.4 62 Unknown [id number] 2.16.840.1.375391.3.579.2.4 62 Unknown [id number] 2.16.840.1.954274.3.579.2.4 62 Unknown [id number] 2.16.840.1.540383.3.579.2.4 62 Unknown [id number] 2.16.840.1.290753.3.579.2.4 62 Unknown [id number] 2.16.840.1.039014.3.579.2.4 62 Unknown [id number] 2.16.840.1.510867.3.579.2.4 62 Unknown [id number] 2.16.840.1.216794.3.579.2.4 62 Unknown [id number] 2.16.840.1.415084.3.579.2.4 62 Unknown [id number] 2.16.840.1.785846.3.579.2.4 62 Unknown [id number] 2.16.840.1.999000.3.579.2.4 62 Unknown [id number] 2.16.840.1.568008.3.579.2.4 62 Unknown [id number] 2.16.840.1.614703.3.579.2.4 62 Unknown [id number] 2.16.840.1.744742.3.579.2.4 62 Unknown [id number] 2.16.840.1.567745.3.579.2.4 62 Unknown [id number] 2.16.840.1.554814.3.579.2.4 62 Unknown [id number] 2.16.840.1.616579.3.579.2.4 62 Unknown [id number] 2.16.840.1.095503.3.579.2.4 62 Unknown [id number] 2.16.840.1.098366.3.579.2.4 62 Unknown [id number] 2.16.840.1.411995.3.579.2.4 62 Unknown [id number] 2.16.840.1.121137.3.579.2.4 62 Unknown [id number] 2.16.840.1.660606.3.579.2.4 62 Unknown [id number] 2.16.840.1.913632.3.579.2.4 62 Unknown [id number] 2.16.840.1.527561.3.579.2.4 62 Unknown [id number] 2.16.840.1.464717.3.579.2.4 62 Unknown [id number] 2.16.840.1.963275.3.579.2.4 62 Unknown [id number] 2.16.840.1.940677.3.579.2.4 62 Unknown [id number] 2.16.840.1.335969.3.579.2.4 62 Social History Date Type Detail Facility Start: 01-10-2022 End: 01-23-2024 Tobacco smoking status NHIS Unknown if ever smoked [facility] Start: 1955 Sex Assigned At Female W [facility] Start: 03-09-2018 Tobacco smoking stat us ARIS Never smoked tobacco [facility] Work Phone: Start: 03-09-2018 Tobacco use and exposure Smokeless tobacco non-user [facility] Work Phone: Start: 06-03-2022 Alcohol intake Current drinke r of alcohol (finding) [facility] Start: 06-03-2022 [facility] Start: 1955 Sex Assigned At Not on file [facility] Goals Date Patient Goal Desired Activity /State Functional Status Date Assessment Result Facility 02-07-2024 Functional status Ambulates [facility] Work Phone: Mental Status Date Assessment Result Facility 02-07-2024 Cognitive function Voice/Name [facility] Work Phone: 10-26-2023 Cognitive function Level Of Cons ciousness Awake;Alert;Appropriate;Follow s Commands [facility] Work Phone: Clinical Notes 08-20-2022 to 04-30-2024 Note Date & Type Note Facility 04-30-2024 Note [facility] 02-07-2024 Discharge summary Note Date/Time February 07, 2024 9:00am [facility] Medical Records Department [address] [place] [address] Instructions for Home/Discharge Instructions 02/07/24 0859 MR#: [id number] Acct: [id number] Name: MARY QUINTERO Rep #:[id number] : 1955 68 From: Melissa Stinson MD PCP: Dr. Jose Garzon MD Status:AD M BARABRA Discharge Instructions Procedure Breast Surgery Diet Discharge Diet: No restrictions Activity Discharge Activity: May Not Drive (while taking narcotic pain meds.) May shower in (days): 1 Lifting Restrictions: 10 pounds for 2 weeks on the right Dressing / Incision Call your doctor if your incision/area has: Continuous Slow Oozing, Sudden Increased Bleeding, Increased Pain/ Swelling and Increased Redness Call your doctor if you observe: Fever of 101 or Higher Suture Line Care: Avoid Pulling/Pushing Remove Dressing in: 1 day (bulky dressing--change and replace ABD pads/ CHRISTINE Wrap) Additional Dressing/Incision Instructions:: Remove bulky dressing tomorrow. ok to remove CHRISTINE Wrap for redressing but replace CHRISTINE wrap after Follow Up Care Please Follow Up With: Melissa Stinson MD When: Please call [phone] for an appointment to be seen Friday 02/09 for JPremoval Test Results: Test results from this visit will be discussed in further detail at your follow-up appointment, if applicable. Discharge Plan Admission Admit Date/Time: 02/06/24 14:06 Attending Provider: Melissa Stinson Primary Care Provider: Jose Garzon Discharge Orders/Prescriptions Prescriptions: New hydrocodone-acetaminophen 5-325 mg tablet 1 tab PO Q6H PRN (Reason: pain) 3 Days Qty: 14 0RF Continued rosuvastatin 10 mg tablet 10 mg PO DAILY omeprazole 10 mg capsule,delayed release(DR/EC) 10 mg PO DAILY amlodipine 10 mg tablet 10 mg PO DAILY mesalamine 1.2 gram tablet,delayed release (DR/EC) 2.4 g PO BID montelukast 10 mg tablet 10 mg PO DAILY Qty: 30 11RF lisinopril 40 mg tablet 40 mg PO DAILY fexofenadine [Aller-Fex] 180 mg tablet 180 mg PO DAILY albuterol sulfate [Ventolin HFA] 90 mcg/actuation HFA aerosol inhaler 2 puff inhalation Q4H PRN (Reason: shortness of breath or wheezing) Qty: 18 6RF fluticasone propion-salmeterol [Advair Diskus] 500-50 mcg/dose blister with device 1 inh inhalation BID Qty: 60 6RF Referrals / Follow Up: Jose Garzon MD [Primary Care Provider] - Disposition Disposition (needs filled in before D/C Order can be placed): Home, Self Care 02/07/24 0903<Electronically signed by Melissa Stinson MD>Melissa Stinson MD CC: Dr. Jose Garzon MD ~ Signed [facility] Work Phone: 1(272) 689-808104-20-2024 Progress note Author Melissa Stinson [facility] February 07, 2024 8:59am Note Date/Time February 07, 2024 7:5 4am [facility] Medical Records Department [address] [place] [address] Progress Note - Surgery 02/07/24 0754 MR#: [id number] Acct: [id number] Name: NUNEZ ROBERTAMYCOREYPatriciaMARY Rep #:[id number] : 1955 68 From: Melissa Stinson MD PCP: Dr. Jose Garzon MD Status:AD M BARBARA Location: MS3 [id number] Subjective Subjective Patient to get some morphine during the night for pain control. Otherwise patient is doing well JPs sanguinous, Stone to be removed this morning Objective Data Objective Data Vital Signs: Vital Signs Temp Pulse Resp BP Pulse Ox O2 Del Method O2 Flow Rate 98.0 F 62 15 149/80 H 97 Room Air 1 02/07/24 03:54 02/07/24 03:54 02/07/24 04:00 02/07/24 03:54 02/07/24 03:54 02/07/24 04:00 02/07/24 03:54 Oxygen Flow Rate (L/min) 1 Oxygen Delivery Method Room Air Weight: 143 lb 4.807 oz Body Mass Index (BMI) 27.1 Intake & Output: Intake and Output for Last 24 Hours 02/05/24 02/06/24 02/07/24 23:59 23:59 23:59 Intake Total 2498.25 / 2798.25 500 / 500 Output Total 759 / 2759 3300 / 3300 Balance 1739.25 / 39.25 -2800 / -2800 Lab / Micro Data 02/07/24 05:56 02/07/24 05:56 Labs: Laboratory Results - last 24 hr 02/07/24 05:56: WBC 13.6 H, RBC 3.79 L, Hgb 10.8 L, Hct 34.0 L, MCV 89.7, MCH 28.5, MCHC 31.8 L, RDW Std Deviation 53.4 H, RDW Coeff of Dequan 16.2 H, Plt Count 351, MPV 10.0, Immature Gran % (Auto) 0.700, Neut % (Auto) 82.0 H, Lymph % (Auto) 11.4 L, Ziebach % (Auto) 5.8, Eos % (Auto) 0.0, Baso % (Auto) 0.1, Absolute Neuts (auto) 11.1 H, Absolute Lymphs (auto) 1.54, Nucleated RBC % 0, Sodium 139,Potassium 3.9, Chloride 109 H, Carbon Dioxide 26.0, Anion Gap 4 L, BUN 7, Creatinine 0.54 L, Estim Creat Clear Calc 58.90, Est GFR (MDRD) Af Amer 143, EstGFR (MDRD) Non-Af 118, BUN/Creatinine Ratio 12.8, Glucose 136 H, Calcium 8.7 Radiography Diagnostic Testing: Radiology Impression [place] [facility] 02/06/24 08:16 IMPRESSION: 1.2 mCi of technetium level sulfur colloid was injected subcutaneously in 4 equal aliquots in the periareolar region for sentinel node imaging. Electronically Signed: Duc Hayes MD at 9:51 EDT , [place] [facility] 02/06/24 08:16 IMPRESSION: 1.2 mCi of technetium labeled sulfur colloid was injected subcutaneously in the periareolar region for sentinel node imaging. Electronically Signed: Duc Hayes MD at 9:52 EDT , Physical Exam Narrative Patient's bilateral mastectomy incisions healing well clean dry and intact with Steri-Strips and Christine wrap. JPs x 4 sanguinous Resp normal respiratory effort Cardio regular rate Assessment & Plan Assessment/Plan (1) S/P bilateral mastectomy: PLAN: Plan Patient tolerating diet Will switch to p.o. pain meds make sure pain is controlled prior to DC. CHA Ruvalcabaey make sure patient can void MAIRA teaching Melissa Stinson M.D. Pager: [phone] [facility] [address] [place] [address], Outpatient Pavilion, [address] [place] [address] Office: [phone] 02/07/24 0859 <Electronically signed by Melissa Stinson MD> Cosigner Signature (if applicable): CC: ~ Signed [facility] Work Phone: 1(639) 542-413604-20-2024 Procedure [facility] 02-06-2024 History and physical note Author Melissa Stinson [facility] February 06, 2024 8:48am Note Date/Time February 06, 2024 8:4 7am [facility] Medical Records Department [address] [place] [address] History & Physical Exam 02/06/24 0847 MR#: [id number] Acct: [id number] Name: MARY QUINTERO Rep #:[id number] : 1955 68 From: Melissa Stinson MD PCP: Dr. Jose Garzon MD Status: G [facility] Location: [place] [address] History and Physical Date of Admission: 02/06/24 Date of Service: 01/21/24 MR#: [id number] Acct: [id number] Name: MARY QUINTERO Rep #: [id number] : 1955 Provider: Dr. Melissa Stinson MD Age/Sex: 68/F Location: [facility] Status: Signed Intake Vital Signs 01/12/2415:02 01/20/2413:36 Height 5 ft 1 in Weight: 148 lb BMI 27.9 BP 131/87 H 161/91 H Blood Pressure Location Lt brachial Rt brachial Position Sitting Sitting Respiration 18 17 Pulse 92 89 Pulse Source Monitor Monitor Temp 98.6 F Pulse Oximetry (%) 95 95 Oxygen Delivery Method room air room air Intake Visit Reasons: DICUSS SURGERY Chief Complaint: discuss surgery Is patient in pain?: No Allergies Sulfa (Sulfonamide Antibiotics) Allergy (Mild, Verified 01/21/24 13:37) Rash Medications mesalamine 400 mg capsule (with delayed release tablets inside) (Delzicol) 800 mg PO TID 07/25/13 [History Confirmed 01/21/24] fexofenadine 60 mg tablet (Soni Allergy) 60 mg PO DAILY 02/20/17 [History Confirmed 01/21/24] amlodipine 10 mg tablet 10 mg PO DAILY 01/02/23 [History Confirmed 01/21/24] lisinopril 10 mg tablet 40 mg PO DAILY 01/02/23 [History Confirmed 01/21/24] mesalamine 1.2 gram tablet,delayed release 2.4 g PO BID 01/02/23 [History Confirmed 01/21/24] omeprazole 10 mg capsule,delayed release 10 mg PO DAILY 01/02/23 [History Confirmed 01/21/24] rosuvastatin 10 mg tablet 10 mg PO DAILY 01/02/23 [History Confirmed 01/21/24] montelukast 10 mg tablet 10 mg PO DAILY #30 tabs 02/13/23 [Rx Confirmed 01/21/24] albuterol sulfate 90 mcg/actuation aerosol inhaler (Ventolin HFA) 2 puff inhalation Q4H PRN shortness of breath or wheezing #18 grams 04/30/23 [Rx Confirmed 01/21/24] fluticasone 500 mcg-salmeterol 50 mcg/dose blistr powdr for inhalation (Advair Diskus) 1 inh inhalation BID #60 ea 09/10/23 [Rx Confirmed 01/21/24] lorazepam 0.5 mg tablet (Ativan) 0.5 mg PO .X1 PRN anxiety #1 TAB 12/30/23 [Rx Confirmed 01/21/24] PFSH Medical History Asthma HTN (hypertension) Malignant neoplasm of both breasts, estrogen receptor positive Surgical History H/O breast biopsy H/O tubal ligation Hx of appendectomy Previous back surgery Family History Mother Breast cancerFather COPD (chronic obstructive pulmonary disease)Aunt Breast cancer DiabetesFather Heart disease Social History housing: house Smoking Status: Never smoker alcohol intake: current alcohol intake frequency: holidays/special occasions only HPI HPI HPI: 68-year-old female presents for exam as well as discuss possible surgical options. Since patient was last seen she did have her breast MRI which showed the known cancers in bilateral breast as well as called enlarged right axillary lymphadenopathy?previous biopsy of the right axillary lymph node appeared to be more of a cyst as it did collapse after I did the biopsy and biopsy just showed fatty tissue. Patient also had a PET scan did not show any evidence of metastatic disease and no enhancement in the right axilla only in the bilateral breast. Question as the right breast mass extended into the pectoralis muscle. MRI appears that it abuts this area. ROS General General: Yes fatigue Breast Breast: Yes left breast lump, right breast lump, abnormal mammogram and abnormalUS; No nipple discharge or breast pain Musc Musculoskeletal: Yes back problems and arthritis Cardio Cardiovascular: Yes high blood pressure Resp Respiratory: Yes shortness of breath, Yes cough and Yes asthma Gastro Gastrointestinal: Yes hemorrhoids Exam Const General: cooperative, healthy appearing and no acute distress HENCT Head: normal to inspection Chest Other: Breast inspection: Inverted left nipple otherwise symmetric Right breast: Fibroglandular tissue, no masses on exam, About 4 x 2 cm mass on exam at 10:00 area, nontender, no change in overlying skin--this area appears varsha mobile from the pectoralis muscle No axillary or supraclavicular adenopathy bilaterally--On exam, unable to feel the enlarged right axillary Resp Effort & Inspection: normal respiratory effort Cardio Rate: regular rate GI Inspection: non-distended Palpation: soft Skin General: no rashes or lesions noted Neuro General: patient oriented x3 Extrem General: no clubbing, cyanosis or edema Psych Affect: normal affect Assessment and Plan Assessment and Plan (1) Invasive ductal carcinoma of breast: Status: Acute (2) Invasive lobular carcinoma of left breast in female: Status: Acute (3) Malignant neoplasm of both breasts, estrogen receptor positive: Status: Acute Qualifiers: Breast location: unspecified site of breast Patient sex: female Qualified Code(s): C50.911 - Malignant neoplasm of unspecified site of right female breast; C50.912 - Malignant neoplasm of unspecified site of left female breast; Z17.0 - Estrogen receptor positive status [ER+] (4) Mass of right axilla: Status: Acute Comment: Did collapse with core biopsy 12/04/2023 may be just a cyst and not a lymph node, enlarged on MRI did not enhance on PET scan. Plan Did review MRI personally and with the patient and her sister. I do believe that it only abuts the pectoralis muscle on the right and it is also feels mobile on exam. They are both aware that if there were positive margins would plan to radiate that area. I have given the patient options for initial surgical treatment. Options are the following: lumpectomy followed by radiation therapy(-only really an option for the left however patient is not interested) Vs. mastectomy vs. mastectomy followed by immediate reconstruction. Patient is not interested in reconstruction. I have described the procedures to the patient. I have described the advantages and disadvantages of the options, but I have told the patient that among the options, the survival rate for breast cancer is the same. I have told the patient that with all the surgeries that a sentinel lymph node biopsy is required. I have described the procedure of sentinel lymph node biopsy to the patient. I have told the patient that if the biopsy is positive for metastatic disease (>2 LN positive), then a full axillary lymph node dissection is required. I have told the patient that adjuvant chemotherapy will be required should the lymph nodes reveal metastatic disease. Also, a full lymph node dissection will increase the risk for lymphedema, especially if there are 4 or more lymph nodes positive for metastatic disease and radiation to the axilla is also required. I have told the patient the risks of surgery, including but not limited to: infection, bleeding, scar tissue, seroma and persistent seroma, lymph leak, injury to any blood vessels, injury to any nerves (particularly the long thoracic, the thoracodorsal, and the second intercostal brachial and the resultant sequelae), lymphedema, cosmetic deformity, dysesthesias, wound infections, further surgery (especially if margins are not clear), complications of anesthesia, etc. the patient understands. Patient is interested in undergoing bilateral mastectomies with sentinel lymph node biopsy, injection of blue dye and radiotracer and possible axillary lymph node dissection. All patient's and patient's sister's questions were answered and they have no further questions. Melissa Stinson M.D. Pager: [phone] [facility] [address] [place] [address], [address] [place] [address] Office: [phone] Coding Level of Care Code Off vis,est,level 4 Diagnoses Invasive ductal carcinoma of breast C50.919 Invasive lobular carcinoma of left breast in female C50.912 Bilateral malignant neoplasm of breast in female, estrogen receptor positive, unspecified site of breast C50.911; C50.912; Z17.0 Breast location: unspecified site of breast Patient sex: female Mass of right axilla R22.31 01/22/24 1309 <Electronically signed by Melissa Stinson MD> Date Melissa Stinson MD 02/06/24 0847 <Electronically signed by Melissa Stinson MD> Cosigner Signature (if applicable): CC: Dr. Jose Garzon MD; Dr. Melissa Stinson MD~ Signed ADDENDUM by Dr. Melissa Stinson MD on 02/06/24 at 0848 Addendum I have examined the patient and the H&P has been reviewed. There are no clinical changes since date of exam. 02/06/24 0848<Electronically signed by Melissa tSinson MD> Cosigner Signature (if applicable): cc: Dr. Jose Garzon MD; Dr. Melissa Stinson MD ~* Signed [facility] Work Phone: 1(346) 585-313306-23-2023 NotePatient Outreach (NETNAV) MARY COLON ([id number]) 1955 F Date Time Provider Department 04/11/23 KIMBERLEE ZUNIGA ([facility]) NETNAV During your visit today, we [...] Scheduling/Wellness visits Payer: Payor: LAITH / Plan: BLUE ACCESS PPO / Product Type: PPO / Care [...] Visit: Population Health Navigation Outreach [3910] Cmt: [place] care gap Prescriptions as of 04/11/2023 - [...] TAB Take one(1) tablet at bedtime - SONI 180 MG TAB Take one(1) tablet daily. Problem List As Of Date 04/11/2023 Noted Resolved ULCERATIVE COLITIS NOS [K51.90] INT HEMORRHOID W/O COMPL [K64.8] 01/22/2007 Encounter Status:Closed by KIMBERLEE ZUNIGA on 04/11/23[place] 04-11-2023 NoteHNO ID: [id number] Author: Kimberlee Zuniga Service: ? Author Type: [...] Scheduling/Wellness visits Payer: Payor: LAITH / Plan: [employer] PPO / Product Type: PPO / Care [...] Signature: Kimberlee Zuniga April 11, 2023 10:08 [facility]06-23-2023 History of Present illness Narrative* Kimberlee Zuniga - 04/11/2023 10:08 AM EDT POPULATION HEALTH NAVIGATION OUTREACH Action/FYI Verified outside PCP. Patient Identified by Name and : YES, via phone Outreach Outcome/Action Spoke to patient / parent / legal guardian: PCP confirmed / updated Did you use a PCP flex slot to schedule this appointment? N/A Reason for Outreach Care Gap or Scheduling/Wellness visits Payer: Payor: LAITH / Plan: [employer] PPO / Product Type: PPO / Care [...] 11, 2023 10:08 AM [facility] Procedure [facility]11-01-2022 NoteHNO ID: [id number] Author: Adalgisa Fleming Population Health Navigator Service: [...] Scheduling/Wellness visits Payer: Payor: LAITH / Plan: [employer] PPO / Product Type: PPO / Care [...] Population Health Navigator August 20, 2022 12:16 [facility]11-01-2022 NotePatient Outreach (NETNAV) MARY COLON ([id number]) 1955 F Date Time Provider Department 08/20/22 [...] Scheduling/Wellness visits Payer: Payor: LAITH / Plan: [employer] PPO / Product Type: PPO / Care [...] TAB Take one(1) tablet at bedtime - SONI 180 MG TAB Take one(1) tablet daily. Problem List As Of Date 08/20/2022 Noted Resolved ULCERATIVE COLITIS NOS [K51.90] INT HEMORRHOID W/O COMPL [K64.8] 01/22/2007 Encounter Status:Closed by BERNADETTE POPULATION HEALTH NAVIGATORADALGISA on 08/20/22 [place]11-01-2022 History of Present illness Narrative* Adalgisa Fleming Population Health Navigator - 08/20/2022 12:13 PM EDT POPULATION HEALTH NAVIGATION OUTREACH Action/FYI Spoke with patient and updated PCP Pt identified by name and : YES, via phone Outreach Outcome/Action Spoke to patient or caregiver: PCP confirmed / updated PCP field updated Did you use a PCP flex slot to schedule this appointment? N/A Reason for Outreach Care Gap or Scheduling/Wellness visits Payer: Payor: LAITH / Plan: BLUE [employer]AND[employer] PPO / Product Type: PPO / Care [...] 20, 2022 12:16 PM documented in this encounterOur [facility] HospitalDisst. [facility] summary Author Jadon Grant [facility] December 28, 2023 11:11am Note Date/Time December 28, 2023 10: 14am [facility] Medical Records Department [address] [place] [address] Emergency Department Summary 12/28/23 MR#: [id number] Acct: [id number] Name: MARY QUINTERO Rep #:[id number] : 1955 68 From: Jadon Grant MD PCP: Dr. Jose Garzon MD Status:RE G ER Location: ED HPI HPI - URI History of Present Illness Chief Complaint: Cough Informant: patient Onset/Context/Timing Onset: Yesterday Context: Gradual Onset Timing: Continuous Narrative Narrative: Patient states since yesterday she has had cough, congestion, and cough feels like it is in her chest. She states last time this happened she had pneumonia so she wanted to be cautious. She has had no fevers or chills. No body aches or headaches. No GI symptoms. No luly dyspnea. Not coughing up any blood or purulent sputum. No known sick contacts. Patient states she has recently been diagnosed with breast cancer she has not initiated treatment yet still undergoing testing. ROS ROS ED Constitutional Constitutional ED: Denies chills or fever(s) ENT ENT ED: Reports nasal congestion and rhinorrhea; Denies ear pain or sore throat Cardiovascular Cardiovascular: Denies chest pain or palpitations Respiratory/Chest Respiratory/Chest: Reports cough; Denies dyspnea Gastrointestinal Gastrointestinal: Denies abdominal pain, diarrhea, nausea or vomiting Genitourinary Genitourinary ED: Denies dysuria or hematuria Musculoskeletal Musculoskeletal: Denies myalgias or neck pain Integumentary Denies abscess or rash Neurologic Neurologic: Denies headache(s), paresthesias or weakness Psychiatric Psychiatric: Denies depression or suicidal thoughts Endocrine Endocrinology: Denies polydipsia or polyuria PFSH PFS Medical History Asthma HTN (hypertension) Malignant neoplasm of both breasts, estrogen receptor positive Home Medications mesalamine 400 mg capsule (with delayed release tablets inside) (Delzicol) 800 mg PO TID 07/25/13 [History Last Taken 02/20/17] fexofenadine 60 mg tablet (Soni Allergy) 60 mg PO DAILY 02/20/17 [History Last Taken 02/20/17] amlodipine 10 mg tablet 10 mg PO DAILY 01/02/23 [History Last Taken Unknown] lisinopril 10 mg tablet 40 mg PO DAILY 01/02/23 [History Last Taken Unknown] mesalamine 1.2 gram tablet,delayed release 2.4 g PO BID 01/02/23 [History Last Taken Unknown] omeprazole 10 mg capsule,delayed release 10 mg PO DAILY 01/02/23 [History Last Taken Unknown] rosuvastatin 10 mg tablet 10 mg PO DAILY 01/02/23 [History Last Taken Unknown] montelukast 10 mg tablet 10 mg PO DAILY #30 tabs 02/13/23 [Rx Last Taken Unknown] albuterol sulfate 90 mcg/actuation aerosol inhaler (Ventolin HFA) 2 puff inhalation Q4H PRN shortness of breath or wheezing #18 grams 04/30/23 [Rx Last Taken Unknown] fluticasone 500 mcg-salmeterol 50 mcg/dose blistr powdr for inhalation (Advair Diskus) 1 inh inhalation BID #60 ea 09/10/23 [Rx Last Taken Unknown] prednisone 20 mg tablet 40 mg (2 x 20 mg) PO DAILY #8 TABLETS 12/28/23 [Rx Last Taken Unknown] Allergy/AdvReac Type Severity Reaction Status Date / Time Sulfa (Sulfonamide Allergy Mild Rash Verified 12/28/23 08:45 Antibiotics) Family History (Updated 12/15/23 @ 15:40 by Paloma Alvarado) Mother Breast cancer Father COPD (chronic obstructive pulmonary disease) Aunt Breast cancer Diabetes Father Heart disease Surgical History (Updated 12/15/23 @ 15:38 by Paloma Alvarado) H/O breast biopsy H/O tubal ligation Hx of appendectomy Previous back surgery Social History housing: house Smoking Status: Never smoker alcohol intake: current alcohol intake frequency: holidays/special occasions only EXAM Physical Exam Const Vital Signs: 12/28/23 08:43 12/28/23 08:59 Temperature 97.4 F L Temperature Source Temporal Pulse Rate 89 Respiratory Rate 16 Respiratory Effort Normal Non-Labored Respiratory Depth Normal Respiratory Pattern Normal Blood Pressure 148/86 H Blood Pressure Mean 106 Pulse Ox 99 Oxygen Delivery Method Room Air Room Air Positive well nourished and well developed General Appearance ED: well developed and NAD HEENT Reports moist mucous membranes normocephalic and atraumatic Throat: Negative for posterior oropharynx abnormal Eyes PERRL and EOMs intact bilaterally Neck no lymphadenopathy, supple and no meningeal signs Resp normal respiratory effort and clear to auscultation bilaterally Resp Narrative: Bronchitic cough with occasional bronchospasm Cardio no murmurs Rate: regular rate Rhythm: regular rhythm GI non-tender and non-distended Extremity normal to inspection and full ROM Neuro oriented x3, CN's II-XII intact bilaterally and no sensory deficits noted Sensorium / Orientation: alert Motor Exam: strength 5/5 throughout Psych mental status grossly normal Skin Lesions: no lesions Rashes: no rashes MDM MDM MDM Narrative Medical decision making narrative: Differential including pneumonia, viral illness including COVID, flu, so we did a swab which was negative and a chest x-ray 2 views of my interpretation negative for pneumonia, radiology in agreement. She agrees that some of this isan asthma exacerbation as well. She has been using her inhaler and nebulizer athome which has been helping some. Therefore I am giving her a 5-day burst of prednisone with the first dose being given here 40 mg, and she states that discharged that she had some dental work recently and she is concerned that it seeded this infection. I reassured her I do not think she has an acute bacterial infection of any kind, she states that her orthopedist who did her back surgery, she has hardware there, wants her to have antibiotics but she did not call him before or after the dental procedure. She states her dentist did not think she needed anything. It is the weekend, so I think giving her 1 dose of Levaquin is reasonable for that purpose and that will help her be reassured, and unlikely to do any harm to her. Radiography Diagnostic Testing: Clinical Impression(s) from Imaging Studies Chest X-Ray 12/28/23 09:47 IMPRESSION: No radiographic evidence of acute cardiopulmonary disease. Electronically Signed: Brinda Craig MD at 10:12 EDT , Discharge Plan Triage Chief Complaint: Cough ED Provider: Jadon Grant Dx/Rx/DC Orders Clinical Impression: Acute bronchitis with bronchospasm, Acute asthma exacerbation Instructions: Acute Bronchitis, Asthma Prescriptions: New prednisone 20 mg tablet 40 mg PO DAILY Qty: 8 0RF No Action rosuvastatin 10 mg tablet 10 mg PO DAILY omeprazole 10 mg capsule,delayed release(DR/EC) 10 mg PO DAILY amlodipine 10 mg tablet 10 mg PO DAILY mesalamine 1.2 gram tablet,delayed release (DR/EC) 2.4 g PO BID montelukast 10 mg tablet 10 mg PO DAILY Qty: 30 11RF mesalamine [Delzicol] 400 MG tablet 800 mg PO TID lisinopril 10 mg tablet 40 mg PO DAILY fexofenadine [Soni Allergy] 60 MG tablet 60 mg PO DAILY albuterol sulfate [Ventolin HFA] 90 mcg/actuation HFA aerosol inhaler 2 puff inhalation Q4H PRN (Reason: shortness of breath or wheezing) Qty: 18 6RF fluticasone propion-salmeterol [Advair Diskus] 500-50 mcg/dose blister with device 1 inh inhalation BID Qty: 60 6RF Primary Care Provider: Jose Garzon Referrals: Jose Garzon MD [Primary Care Provider] - 1 Week if not improving Activity Restrictions/Additional Instructions: You received your first dose of prednisone in the ER, so the prescription can bestarted tomorrow 12/28 Disposition Disposition: Home, Self Care What to do if you have Problems For any increased pain, shortness of breath, bleeding, nausea or vomiting, chestpain, or any unexpected problems, contact your Primary Care Provider. Call [facility] ([phone]) or report to the closest Emergency Room. Call 911 if necessary. 12/28/23 1111 <Electronically signed by Jadon Grant MD> Cosigner Signature (if applicable): CC: Dr. Jose Garzon MD ~ Signed [facility] Work Phone: Evaluation noteNo assessment information available [facility] Work Phone: Evaluation note* Diagnosis Onset Date Resolution Status Asthma acute Cough acute [facility] Work Phone: Evaluation note* Diagnosis Onset Date Resolution Status Cough acute Asthma chronic Asthma chronic [facility] Work Phone: Evaluation note* Diagnosis Onset Date Resolution Status Asthma chronic [facility] Work Phone: Evaluation note* Diagnosis Onset Date Resolution Status Asthma chronic Breast mass, right acute Left breast mass acute Mass of right axilla acute [facility] Work Phone: Evaluation note* Diagnosis Onset Date Resolution Status Asthma chronic Breast mass, right acute Left breast mass acute Mass of right axilla acute Malignant neoplasm of both b reasts, estrogen receptor positive acute [facility] Work Phone: Evaluation note* Diagnosis Onset Date Resolution Status Asthma chronic Mass of right axilla acute Malignant neoplasm of both b reasts, estrogen receptor positive acute Malignant neoplasm of both b reasts, estrogen receptor positive acute Invasive ductal carcinoma of breast acute Invasive lobular carcinoma of left breast in female acute Malignant neoplasm of both b reasts, estrogen receptor positive acute Mass of right axilla acute [facility] Work Phone: Evaluation note* Diagnosis Onset Date Resolution Status Asthma chronic Mass of right axilla acute Malignant neoplasm of both b reasts, estrogen receptor positive acute Malignant neoplasm of both b reasts, estrogen receptor positive acute Invasive ductal carcinoma of breast acute Invasive lobular 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 You need to follow-up with pulmonology. That would be Dr. Hanks. Return for any worsening symptoms.[facility] Work Phone: Hospital Discharge instructions Additional Instructions You received your first dose of prednisone in the ER, so the prescription can be [facility] Work Phone: Chief Complaint and Reason for Visit Chief Complaint THYROID NODULE SCREENING SCREENING EORDER CAT BITE Chief Complaint SOB Chief Complaint SOB Shortness of breath Reason for Visit Asthma Cough Chief Complaint SOB Shortness of breath ASTHMA Asthma Reason for Visit Asthma Cough Chief Complaint SOB Shortness of breath ASTHMA Asthma 6 wk FU Reason for Visit Cough Asthma Asthma Chief Complaint SOB Shortness of breath ASTHMA Asthma 6 wk FU MULTIPLE THYROID NODULES Reason for Visit Cough Asthma Asthma Chief Complaint SOB Shortness of breath ASTHMA Asthma 6 wk FU MULTIPLE THYROID NODULES BILATERAL HIP/ LUMBAR SPINE pain, post-lamenictomy URINE Reason for Visit Cough Asthma Asthma Chief Complaint EORDER Acute cold sx Reason for Visit Asthma Chief Complaint EORDER Acute cold sx EORDER- CXR- pneumonia Reason for Visit Asthma Chief Complaint Acute cold sx EORDER- CXR- pneumonia SCREENING ABN BILAT BREAST MAMM Reason for Visit Asthma Chief Complaint Acute cold sx EORDER- CXR- pneumonia SCREENING ABN BILAT BREAST MAMM BIRADS 4 L BREAST & R AXILLARY Reason for Visit Asthma Breast mass, right Left breast mass Mass of right axilla Chief Complaint Acute cold sx EORDER- CXR- pneumonia SCREENING ABN BILAT BREAST MAMM BIRADS 4 L BREAST & R AXILLARY NEW PT - BREAST CA BREAST L & R BREAST MASS, R AXILLARY MASS Reason for Visit Asthma Breast mass, right Left breast mass Mass of right axilla Malignant neoplasm of both breasts, estrogen receptor positive Chief Complaint Acute cold sx EORDER- CXR- pneumonia SCREENING ABN BILAT BREAST MAMM BIRADS 4 L BREAST & R AXILLARY NEW PT - BREAST CA L & R BREAST MASS, R AXILLARY MASS BREAST cough Reason for Visit Asthma Breast mass, right Left breast mass Mass of right axilla Malignant neoplasm of both breasts, estrogen receptor positive Chief Complaint Acute cold sx EORDER- CXR- pneumonia SCREENING ABN BILAT BREAST MAMM BIRADS 4 L BREAST & R AXILLARY NEW PT - BREAST CA L & R BREAST MASS, R AXILLARY MASS BREAST cough BREAST CANCER Reason for Visit Asthma Breast mass, right Left breast mass Mass of right axilla Malignant neoplasm of both breasts, estrogen receptor positive Chief Complaint Acute cold sx EORDER- CXR- pneumonia SCREENING ABN BILAT BREAST MAMM BIRADS 4 L BREAST & R AXILLARY NEW PT - BREAST CA L & R BREAST MASS, R AXILLARY MASS BREAST cough BREAST CANCER REVIEW MRI DICUSS SURGERY PREOP Reason for Visit Asthma Mass of right axilla Malignant neoplasm of both breasts, estrogen receptor positive Malignant neoplasm of both breasts, estrogen receptor positive Invasive ductal carcinoma of breast Invasive lobular carcinoma of left breast in female Malignant neoplasm of both breasts, estrogen receptor positive Mass of right axilla Chief Complaint Acute cold sx EORDER- CXR- pneumonia SCREENING ABN BILAT BREAST MAMM BIRADS 4 L BREAST & R AXILLARY NEW PT - BREAST CA L & R BREAST MASS, R AXILLARY MASS BREAST cough BREAST CANCER REVIEW MRI DICUSS SURGERY PREOP Bilateral Mastectomy w/bilateral SLN bx ,poss ax d Bilateral Mastectomy w/bilateral SLN bx ,poss ax d Bilateral Mastectomy w/bilateral SLN bx ,poss ax d Reason for Visit Asthma Mass of right axilla Malignant neoplasm of both breasts, estrogen receptor positive Malignant neoplasm of both breasts, estrogen receptor positive Invasive ductal carcinoma of breast Invasive lobular carcinoma of left breast in female Malignant neoplasm of both breasts, estrogen receptor positive Mass of right axilla S/P bilateral mastectomy Advance Directives No Advanced Directives Records Found Advance Directive Response Recorded Date/ Time Living Will No January 10, 2022 8:56pm Power of Warp Worker No January 10 8:56pm Advance Directive Response Recorded Date/ Time Living Will No January 10, 2022 7:56pm Power of Warp Worker No January 10 7:56pm Advance Directive Response Recorded Date/ Time Name of Medical Power of Warp Worker Raven December 28, 2022 4:38pm Living Will Yes December 28, 2022 4:38pm Power of Warp Worker Yes December 28 4:38pm Advance Directive Response Recorded Date/ Time Name of Medical Power of Warp Worker Raven December 28, 2022 5:38pm Living Will Yes December 28, 2022 5:38pm Power of Warp Worker Yes December 28 5:38pm Advance Directive Response Recorded Date/ Time Name of Medical Power of Warp Worker Raven Nunez October 26, 2023 6:41am Living Will Yes October 26 6:41am Power of Warp Worker Yes October 26, 2 024 6:41am Advance Directive Response Recorded Date/ Time Name of Medical Power of Warp Worker Raven Nunez October 26, 2023 7:41am Name of Medical Power of Warp Worker Raven Nunez December 28, 2023 8:58am Living Will Yes December 28, 2023 8:58am Power of Warp Worker Yes December 27 8:58am Advance Directive Response Recorded Date/ Time Name of Medical Power of Warp Worker Raven Nunez October 26, 2023 7:41am Name of Medical Power of Warp Worker Raven Nunez December 28, 2023 8:58am Living Will Yes January 23, 2024 9:06am Power of Warp Worker Yes January 22 9:06am Advance Directive Response Recorded Date/ Time Name of Medical Power of Warp Worker Raven Nunez October 26, 2023 7:41am Name of Medical Power of Warp Worker Raven Nunez December 28, 2023 8:58am Name of Medical Power of Warp Worker RAVEN SEUNBN E February 06, 2024 4:11pm Living Will Yes February 06, 2024 4:11pm Power of Warp Worker Yes February 05 4:11pm Family History No Family History Records Found Relationship Condition Age at Onset Recorded Date/T velia mother Malignant neoplasm of breast Unknown father Chronic obstructive pulmonary disease Unk nown Relationship Condition Age at Onset Recorded Date/T velia mother Malignant neoplasm of breast Unknown father Chronic obstructive pulmonary disease Unk nown aunt Malignant neoplasm of breast Unknown Diabetes mellitus Unknown father Cardiac disease Unknown Summary Purpose Additional Source Comments Goals (unrecognized section and content) Goals may be documented in a n alternate sectionGoals may be documented in an alternate sectionGoals may be documented in an alternate sectionGoals may be documented in an alternate sectionGoals may be documented in an alternate sectionGoals may be documented in an alternate sectionGoals may be documented in an alternate sectionGoals may be documented in an alternate sectionGoals may be documented in an alternate sectionGoals may be documented in an alternate sectionGoals may be documented in an alternate sectionGoals may be documented in an alternate sectionGoals may be documented in an alternate sectionGoals may be documented in an alternate sectionGoals may be documented in an alternate sectionGoals may be documented in an alternate sectionGoals may be documented in an alternate sectionGoals may be documented in an alternate section Source Comments (unrecognize d section and content) In the event this informatio n is protected by the Federal Confidentiality of Alcohol and Drug Abuse Patient Records regulations: The Federal rules restrict any use of the information to criminally investigate or prosecute any alcohol or drug abuse patient.[facility] the event this information is protected by the Federal Confidentiality of Alcohol and Drug Abuse Patient Records regulations: The Federal rules restrict any use of the information to criminally investigate or prosecute any alcohol or drug abuse patient.[facility] Reason for Visit (unrecogniz ed section and content) Reason Onset Date Comments Population Health Navigation Outreach 08/20/2022 [place] [facility] Reason Onset Date Comments Population Health Navigation Outreach 04/11/2023 [place] care [facility] Care Teams (unrecognized sec tion and content) Instrumentation Instructor Relationship Specialty Start Date End Date Jose Garzon [address] [place] [address] PCP - General Family Medicine 08/20/22 Team Status: Active Member Role Status Dates Dr. Jose Cardona MD Family Provider Active Dr. Jose Garzon MD Primary Care Provider Active Team Status: Inactive Member Role Status Dates Dr. Jose Garzon MD Primary Care Pr ovider, Attending Provider, Referring Provider Active Team Status: Inactive Member Role Status Dates Dr. Jose Garzon MD Primary Care Provider Active Dr. Juan Pablo Porter MD Emergency Provider Active Team Status: Inactive Member Role Status Dates Dr. Jose Garzon MD Primary Care Provider, Referr ing Provider Active Dr. Yuri Hanks DO Attending Provider Active Team Status: Inactive Member Role Status Dates Dr. Jose Garzon MD Primary Care Provider Active Dr. Juan Pablo Porter MD Attending Provider, Emergency Provi karen Active Team Status: Inactive Member Role Status Dates Dr. Jose Garzon MD Primary Care Provider Active Dr. Yuri Hanks DO Attending Provider, Referring Pro vider Active Team Status: Active Member Role Status Dates Dr. Jose Garzon MD Primary Care Provider Active Dr. Yuri Hanks DO Attending Provider, Other Provide r Active Team Status: Inactive Member Role Status Dates Dr. Jose Garzon MD Primary Care Provider Active Dr. Yuri Hanks DO Attending Provider Active Team Status: Active Member Role Status Dates Dr. Jose Garzon MD Primary Care Provider Active Dr. Yuri Hanks DO Attending Provider, Referring Provider, Other Provider Active Team Status: Inactive Member Role Status Dates Dr. Jose Garzon MD Primary Care Provider, Attend ing Provider Active Team Status: Inactive Member Role Status Dates Dr. Jose Garzon MD Primary Care Provider, Referr ing Provider Active Teena Casey DIRECTOR COMPENSATION, DIRECTOR COMPENSATION-C Attending Provider Active Team Status: Inactive Member Role Status Dates Dr. Jose Garzon MD Primary Care Provider Active Dr. Harrison Contreras DO Emergency Provider Active Team Status: Inactive Member Role Status Dates Dr. Jose Garzon MD Primary Care Provider Active Dr. Harrison Contreras DO Attending Provider, Emergency P rogabbie Active Team Status: Active Member Role Status Dates Dr. Jose Garzon MD Primary Care Pr ovider, Attending Provider, Referring Provider Active Team Status: Inactive Member Role Status Dates Dr. Jose Garzon MD Primary Care Provider, Referr ing Provider Active Dr. Melissa Stinson MD Attending Provider Active Team Status: Active Member Role Status Dates Dr. Jose Garzon MD Primary Care Provider Active Dr. Melissa Stinson MD Attending Provider Active Team Status: Inactive Member Role Status Dates Dr. Jose Garzon MD Primary Care Provider Active Dr. Melissa Stinson MD Attending Provider Active Team Status: Inactive Member Role Status Dates Dr. Jose Garzon MD Primary Care Provider, Referr ing Provider Active Dr. Dillan Cristina MD Attending Provider Active Team Status: Inactive Member Role Status Dates Dr. Jose Garzon MD Primary Care Provider Active Dr. Melissa Stinson MD Attending Provider, Referring Provider Active Team Status: Active Member Role Status Dates Dr. Jose Garzon MD Primary Care Provider Active Dr. Dillan Cristina MD Attending Provider, Referrin g Provider Active Team Status: Inactive Member Role Status Dates Dr. Jose Garzon MD Primary Care Provider Active Dr. Jadon Grant MD Emergency Provider Active Team Status: Inactive Member Role Status Dates Dr. Jose Garzon MD Primary Care Provider Active Dr. Jadon Grant MD Attending Provider, Emergency Provider Active Team Status: Inactive Member Role Status Dates Dr. Jose Garzon MD Primary Care Provider Active Dr. Dillan Cristnia MD Attending Provider, Referrin g Provider Active Team Status: Inactive Member Role Status Dates Dr. Jose Garzon MD Primary Care Provider Active Dr. Melissa Stinson MD Attending Provider Active Dr. Dillan Cristina MD Referring Provider Active Team Status: Active Member Role Status Dates Dr. Jose Garzon MD Primary Care Provider Active Dr. Maico Hill MD Attending Provider Active Dr. Melissa Stinson MD Referring Provider Active Team Status: Active Member Role Status Dates Dr. Jose Garzon MD Primary Care Provider Active Dr. Melissa Stinson MD Attending Provi karen, Referring Provider, Other Provider Active Team Status: Active Member Role Status Dates Dr. Jose Garzon MD Primary Care Provider Active Dr. Melissa Stinson MD Admit Provider, Attending Provider, Referring Provider, Other Provider Active Team Status: Inactive Member Role Status Dates Dr. Jose Garzon MD Primary Care Provider Active Dr. Melissa Stinson MD Admit Provider, Attending Provider, Referring Provider Active INFORMATION SOURCE (unrecogn ized section and content) DATE CREATED AUTHOR 04/12/2023 [place] DATE CREATED AUTHOR AUTHOR'S ORGANIZ ATION 10/12/2023 [facility] DATE CREATED AUTHOR AUTHOR'S ORGANIZ ATION 04/01/2025 [facility] FOR RECORDS PERTAINING TO PATIENTS WHO [...] BE BASED ON THE PRIMARY CLINICAL RECORDS. [facility]. provides no warranty or guarantee of the accuracy or completeness of information in this document.
== END | disposition home or self-care (01) ==
LOC: MFPLAB 09:39
PROVIDERS: PCP Family Medicine; Referring Provider Family Medicine; Visit Provider Family Medicine
DX: D64.9 Anemia, unspecified (principal)
CPT/HCPCS: 36415; 82607; 82728; 83540; 83550; 85025

== ENCOUNTER → 2025-04-12 | Outpatient (CLI) | payer MEDICARE, SELFPAY ==
--- OUTSIDE RECORDS SUMMARY | 2025-04-12 06:52 | XMS RPT_ITS | CCD ---
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 Jose Garzon Referring Provider Carmela PIPELAYER, PIPELAYER-Amada Dickinson Attending Provider Dr. Melissa Stinson Attending Provider Dr. Dillan Cristina Attending Provider Dr. Jose Garzon Primary Care Provider [phone] Dr. Jose Garzon Referring Provider Carmela PIPELAYER, PIPELAYER-C Teena Attending Provider Dr. Melissa Stinson Attending Provider Dr. Dillan Cristina Attending Provider Dr. Dillan Cristina Referring Provider Dr. Maico Hill Attending Provider [phone] Milad, Dr. Torres Referring Provider Dr. Melissa Stinson Other Provider Milda, Dr. Torres Admit Provider Belkys TOTH, Dr. Jose Gomez Primary Care Provider Belkys TOTH, Dr. Jose Gomez Referring Provider Ibeth TOTH, Dr. Grimaldo Attending Provider Milad TOTH, Dr. Torres Attending Provider Dr. Keven Joshi DO Attending Provider Belkys TOTH, Dr. Jose Gomez Attending Provider Michael TOTH, Dr. Jauregui Attending Provider Ibeth TOTH, Dr. Grimaldo Referring Provider Schinner, Jose E Referring Unavailable Jaye Driscoll Attending Unavailable Schinner, Jose E Primary Care Unavailable Schinner, Jose E Referring Unavailable Madelyn, Keven Attending Unavailable Schinner, Jose E Primary Care Unavailable Schinner, Jose E Referring Unavailable Schinner, Jose E Primary Care Unavailable Jose Hare NP Attending Unavailable Víctor German Consulting Unavailable Pilar Renae Admitting Unavailable Kimberlee Manriquez Attending Unavailable Schinner, Jose E Primary Care Unavailable Pilar Renae Consulting Unavailable Kimberlee Manriquez Consulting Unavailable Schinner, Jose E Referring Unavailable Schinner, Jose E Primary Care Unavailable Madelyn, Keven Attending Unavailable Schinner, Jose E Referring Unavailable Schinner, Jose E Primary Care Unavailable Hanna PIPELAYERIzzy Attending Unavailable Víctor German Attending Unavailable Eliezer Slater Consulting Unavailable Schinner, Jose E Primary Care Unavailable Madelyn, Keven Attending Unavailable Madelyn, Keven Referring Unavailable Madelyn, Keven Attending Unavailable Madelyn, Keven Referring Unavailable Schinner, Jose E Primary Care Unavailable Madelyn, Keven Attending Unavailable Madelyn, Keven Referring Unavailable Schinner, Jose E Primary Care Unavailable Schinner, Jose E Referring Unavailable Schinner, Jose E Attending Unavailable Schinner, Jose E Primary Care Unavailable SchJose meza E Referring Unavailable SchinJose orozco Attending Unavailable SchinJose orozco E Primary Care Unavailable SchJose meza E Attending Unavailable SchJose meza E Referring Unavailable SchinJose orozco E Primary Care Unavailable Jaye Driscoll Referring Unavailable Jaye Driscoll Attending Unavailable SchJose meza Primary Care Unavailable SchJose meza Referring Unavailable SchinJose orozco E Primary Care Unavailable Dillan Cristina Attending Unavailable SchJose meza E Referring Unavailable SchinJose orozco E Primary Care Unavailable Melissa Stinson Attending Unavailable SchJose meza Referring Unavailable Keven Joshi Attending Unavailable SchJose meza Primary Care Unavailable SchJose meza Referring Unavailable Juventino Rodriguez Attending Unavailable SchJose meza E Primary Care Unavailable SchJose meza E Primary Care Unavailable Keven Joshi Referring Unavailable Keven Joshi Attending Unavailable Keven Joshi Attending Unavailable Keven Joshi Referring Unavailable SchJose meza Primary Care Unavailable SchJose meza Attending Unavailable Jose Garzon E Primary Care Unavailable SchJose meza Referring Unavailable SchJose meza Attending Unavailable Jose Garzon Primary Care Unavailable Dillan Cristina Attending Unavailable Dillan Cristina Referring Unavailable SchJose meza E Primary Care Unavailable SchJose meza Primary Care Unavailable Keven Joshi Referring Unavailable Keven Joshi Attending Unavailable Jose Garzon Referring Unavailable SchJose meza Primary Care Unavailable Izzy Ferreira NP Attending Unavailable Jose Garzon Primary Care Unavailable SchJose meza Referring Unavailable Víctor German Attending Unavailable Eliezer Slater Attending Unavailable Eliezer Slater Referring Unavailable Víctor German Consulting Unavailable Eliezer Slater Attending Unavailable Pilar Renae Admitting Unavailable SchJose meza Primary Care Unavailable Pilar Renae Consulting Unavailable Kimberlee Manriquez Consulting Unavailable Pilar Renae Attending Unavailable Jose Garzon Primary Care Unavailable Keven Joshi Attending Unavailable Keven Joshi Referring Unavailable SchJose meza Primary Care Unavailable Keven Joshi Referring Unavailable Keven Joshi Attending Unavailable Jose Garzon Referring Unavailable Keven Joshi Attending Unavailable Jose Garzon E Primary Care Unavailable SchJose meza Referring Unavailable Schcecilener, Jose E Primary Care Unavailable Melissa Stinson Attending Unavailable Allergies Allergy Classification Reported Allergen(s) Allergy Type Date of Onset Reaction(s) Facility (2 sources) Cat Propensity to adverse reactions 8 [facility] Work Phone: (2 sources) cow milk allergenic extract Drug Allergy 8 Intolerance [facility] Work Phone: (13 sources) Sulfonamides (Antibiotic) Allergy to substance 4 Rash [facility] Comment on above: GI upset (1 source) Sulfonamides (Antibiotic) Drug allergy (disorder) 5 [facility] Repository Medications Current Medications Medication Drug Class(es) Dates Sig (Normalized) Sig (Original) amLODIPine 10 mg oral tablet (18 sources) Dihydropyridine Calcium Channel Clark Start: 01-02-2023 take 1 tablet by mouth once daily Amlodipine 10 mg tablet Active 10 mg PO DAILY January 02, 2023 12:00am ferrous sulfate 325 mg oral tablet (3 sources) Start: 04-05-2025 take 1 tablet by mouth once daily Ferrous Sulfate (Ferosul) 325 mg (65 mg iron) tablet Active 325 mg PO daily April 05, 2025 12:00am fexofenadine hydrochloride 180 mg oral tablet (20 sources) Histamine-1 Receptor Antagonist Start: 01-23-2024 take 1 tablet by mouth once daily Fexofenadine (Aller-Fex) 180 mg tablet Active 180 mg PO DAILY January 23, 2024 12:00am Start: 02-20-2017 take 1 tablet by [facility] once daily Fexofenadine (Soni Allergy) 60 MG tablet Active 60 MG PO DAILY February 20, 2017 12:00am Start: 08-28-2005 SONI 180 MG TAB Take one(1) tablet daily. 0 08/28/2005 Active Comment on above: Take one(1) tablet d aily. Fluticasone Propion-Salmeterol (20 sources) Corticosteroid, beta2-Adrenergic Agonist Start: 10-22-2024 Fluticasone Propion-Salmeterol (Advair Diskus) 500-50 mcg/dose blister with device Active 1 NMA INHALATION TWICE A DAY October 22, 2024 9:56am Start: 05-20-2024 End: 10-22-2024 Fluticasone Propion-Salmeter ol (Advair Diskus) 500-50 mcg/dose blister with device Discontinued 1 NMA INHALATION TWICE A DAY 60 May 20, 2024 10:08am October 22, 2024 9:57am Start: 09-10-2023 End: 05-20-2024 Fluticasone Propion-Salmeter ol (Advair Diskus) 500-50 mcg/dose blister with device Discontinued 1 NMA INHALATION TWICE A DAY 60 September 10, 2023 1:00am May 20, 2024 10:08am Start: 09-10-2023 Fluticasone Pr opion-Salmeterol (Advair Diskus) 500-50 mcg/dose blister with device Active 1 INH INHALATION TWICE A DAY 60 September 10, 2023 1:00am Start: 09-10-2023 Fluticasone Pr opion-Salmeterol (Advair Diskus) 500-50 mcg/dose blister with device Active 1 INH INHALATION TWICE A DAY 60 September 10, 2023 12:00am Start: 02-13-2023 End: 09-10-2023 Fluticasone Propion-Salmeter ol (Advair Diskus) 250-50 mcg/dose blister with device Discontinued 1 NMA INHALATION TWICE A DAY 60 February 13, [...] 250-50 mcg/dose blister with device Discontinued 1 NMA INHALATION TWICE A DAY 60 December 28, 2022 1:00am February 13, 2023 7:06am Start: 12-28-2022 End: 02-13-2023 Fluticasone Propion-Salmeter ol [...] Angiotensin Converting Enzyme Inhibitor Start: 01-23-2024 take 1 tablet by mouth once daily Lisinopril 40 mg tablet Active 40 mg PO DAILY January 23, 2024 12:00am Start: 01-02-2023 take 40 mg by mouth once daily Lisinopril Active 40 MG PO DAILY January 02, 2023 6:44am Start: 01-02-2023 take 20 mg by mouth once daily Lisinopril Active 20 MG PO DAILY January 02, 2023 5:44am Start: 07-25-2013 End: 01-02-2023 take 1 tablet by mouth once daily Lisinopril 10 MG tablet Discontinued 10 mg PO DAILY July 25, 2013 12:00am January 02, 2023 6:47am Comment on above: Take 10 mg by mouth once daily. mesalamine 1200 mg delayed release oral tablet (20 sources) Aminosalicylate Start: 3 take 2.4 g by mouth twice daily Mesalamine Active 2.4 GM PO TWICE A DAY January 02, 2023 12:00am Start: 09-16-2017 take [address] [facility] twice daily Mesalamine 1.2 gram tablet,delayed release (DR/EC) Active 2.4 g PO TWICE A DAY January 02, 2023 12:00am Start: 07-25-2013 take [address] [facility] three times daily Mesalamine (Asacol) 400 MG tablet Active 800 MG PO THREE TIMES A DAY July 25, 2013 12:00am Comment on above: TAKE TWO TABLETS BY MOUTH TWICE DAILY omeprazole 10 mg delayed release oral capsule (18 sources) Proton Pump Inhibitor Start: 3 take 1 capsule by mouth once daily Omeprazole 10 mg capsule,delayed release(DR/EC) Active 10 mg PO DAILY January 02, 2023 12:00am rosuvastatin calcium 10 mg oral tablet (18 sources) HMG-CoA Reductase Inhibitor Start: 3 take 1 tablet by mouth once daily Rosuvastatin 10 mg tablet Active 10 mg PO DAILY January 02, 2023 12:00am Completed/Discontinued Medications Medication Drug Class(es) Dates Sig (Normalized) Sig (Original) acetaminophen 325 mg / HYDROcodone bitartrate 5 mg oral tablet (7 sources) Opioid Agonist Start: 02-07-2024 End: 02-12-2024 Hydrocodone-Acetami nophen 5-325 mg tablet Discontinued 1 {tbl} PO EVERY 6 HOURS as needed for pain 5 2 February 10, 2024 February 11, 2024 12:00am February 12, 2024 12:06am Start: 02-07-2024 [facility] Hydrocodone-Acetaminophen Active 1 TABLE T PO EVERY 6 HOURS 14 3 February 07, 2024 [id number] 200 actuat albuterol 0.09 mg/actuat metered dose inhaler (13 sources) beta2-Adrenergic Agonist Start: 04-30-2023 End: 11-28-2024 Albuterol Sulfate (Ventolin Hfa) 90 mcg/actuation HFA aerosol inhaler Discontinued 2 NMA INHALATION Q4H as needed for shortness of breath or wheezing April 30, 2023 12:00am November 28, 2024 11:31am Start: 04-30-2023 take 1 puff(s) by in halation every four hours Albuterol Sulfate (Ventolin Hfa) 90 mcg/actuation HFA aerosol inhaler Active 2 PUFF INHALATION Q4H April 30, 2023 12:00am amoxicillin 500 mg oral capsule (20 sources) Penicillin-class Antibacterial Start: 01-10-2022 End: 01-02-2023 take 1 capsule by mouth every six hours Amoxicillin 500 mg capsule Discontinued 500 mg PO EVERY 6 HOURS January 10, 2022 12:00am January 02, 2023 6:42am amoxicillin 875 mg / clavulanate 125 mg oral tablet (20 sources) Penicillin-class Antibacterial Start: 04-30-2024 End: 05-12-2024 Amoxicillin-Pot Clavulanate 875-125 mg tablet Discontinued 1 {tbl} PO TWICE A DAY April 30, 2024 12:00am May 12, 2024 9:39am Please add these to your home Augmentin supply to complete 7 days of antibiotic coverage, start your first dose tonight Start: 08-28-2023 End: 10-14-2023 Amoxicillin-Pot Clavulanate 875-125 mg tablet Discontinued 1 {tbl} PO TWICE A DAY August 28, 2023 1:00am October 14, 2023 12:12pm Start: 08-28-2023 End: 10-14-2023 take 1 tablet by mouth twice daily Amoxicillin-Pot Clavulanate Discontinued 1 TABLET PO TWICE A DAY August 28, 2023 1:00am October 14, 2023 12:12pm Start: 01-10-2022 End: 01-02-2023 Amoxicillin-Pot Clavulanate 875-125 mg tablet Discontinued 1 {tbl} PO TWICE A DAY January 10, 2022 12:00am January 02, 2023 6:43am Start: 01-10-2022 End: 01-02-2023 take 1 tablet by mouth twice daily Amoxicillin-Pot Clavulanate Discontinued 1 TABLET PO TWICE A DAY January 10, 2022 12:00am January 02, 2023 6:43am anastrozole 1 mg oral tablet (3 sources) Aromatase Inhibitor Start: 05-27-2024 End: 06-24-2024 take 1 tablet by mouth once daily Anastrozole 1 mg tablet Discontinued 1 mg PO DAILY May 27, 2024 12:00am June 24, 2024 1:09pm azithromycin 250 mg oral tablet (20 sources) Macrolide Antimicrobial Start: 11-03-2024 End: 11-28-2024 Azithromycin 250 mg tablet Discontinued 0 PO .COMPLEX 6 November 03, 2024 1:00am November 28, 2024 11:31am For 250 mg dose pack: take 500 mg today (day 1), then 250 mg for 4 days (days 2-5) PO Start: 01-01-2024 End: 01-13-2024 take 2-5 tablets by mouth once daily Azithromycin 250 mg tablet Discontinued 0 PO .COMPLEX 6 January 01, 2024 12:00am January 13, 2024 3:04pm take 500 mg today (day 1), then 250 mg for 4 days (days 2-5) PO Start: 10-26-2023 End: 12-15-2023 take 1 tablet by mouth once daily Azithromycin 250 mg tablet Discontinued 250 mg PO DAILY October 26, 2023 1:00am December 15, 2023 4:36pm Start: 01-22-2020 End: 01-02-2023 Azithromycin 250 MG tablet Discontinued 250 mg PO DIRECTED January 22, 2020 12:00am January 02, 2023 6:43am benzonatate 200 mg oral capsule (13 sources) Non-narcotic Antitussive Start: 09-10-2023 End: 12-15-2023 take 1 capsule by mouth three times daily as needed for cough Benzonatate 200 mg capsule Discontinued 200 mg PO THREE TIMES A DAY as needed for cough September 10, 2023 1:00am December 15, 2023 4:36pm doxycycline hyclate 100 mg oral capsule (16 sources) Tetracycline-class Drug Start: 11-28-2024 End: 12-05-2024 take 1 capsule by mouth twice daily Doxycycline Hyclate 100 mg capsule Discontinued 100 mg PO TWICE A DAY 14 November 28, 2024 1:00am December 04, 2024 1:00am December 05, 2024 1:11am Start: 09-26-2023 End: 10-14-2023 take 1 tablet by mouth twice daily Doxycycline Hyclate 100 mg tablet Discontinued 100 mg PO TWICE A DAY September 26, 2023 [...] after use. LORazepam 0.5 mg oral tablet (14 sources) Benzodiazepine Start: 12-30-2023 End: 01-23-2024 Lorazepam (Ativan) 0.5 mg tablet Discontinued 0.5 mg PO .X1 as needed for anxiety December 30, 2023 12:00am January 23, 2024 8:56am 30 minutes prior to MRI, do not drive Start: 12-11-2023 End: 12-28-2023 take 1 tablet by mouth every hour Lorazepam (Ativan) 1 mg tablet Discontinued 1 mg PO As Directed December 11, 2023 1:00am December 28, 2023 8:56am One (1) mg tablet to be taken One (1) hour prior to procedure Mometasone (Asmanex Hfa) 200 mcg/actuation HFA aerosol inhaler (18 sources) Start: 01-02-2023 End: 02-13-2023 Mometasone (Asmanex Hfa) 200 mcg/actuation HFA aerosol inhaler Discontinued 1 NMA INHALATION TWICE A DAY January 02, 2023 12:00am February 13, 2023 7:05am Start: 01-02-2023 End: 02-13-2023 take 1 puff(s) [...] sources) Leukotriene Receptor Antagonist Start: 08-28-2005 End: 02-18-2025 take 1 tablet by mouth once daily Montelukast 10 MG tablet Discontinued 10 mg PO DAILY July 25, 2013 12:00am February 13, 2023 7:06am Comment on above: Take one(1) tablet a t bedtime MULTIVITAMIN ORAL (2 sources) MULTIVITAMIN ORA L Take by mouth once daily. 0 Active Comment on above: Take by mouth once d aily. naproxen 500 mg oral tablet (20 sources) Nonsteroidal Anti-inflammatory Drug Start: 01-10-2022 End: 12-04-2023 take 1 tablet by mouth twice daily Naproxen 500 mg tablet Discontinued 500 mg PO TWICE A DAY January 10, 2022 12:00am December 04, 2023 4:05pm predniSONE 20 mg oral tablet (20 sources) Start: 11-03-2024 End: 12-03-2024 take 2 tablets by mouth once daily Prednisone 20 mg tablet Discontinued 40 mg PO daily 10 5 November 28, 2024 1:00am December 02, 2024 1:00am December 03, 2024 1:11am Start: 10-22-2024 End: 11-03-2024 take 3 tablets by mouth once daily, then take 2 tablets by mouth once daily Prednisone 10 mg tablet Discontinued 10 mg PO As Directed October 22, 2024 1:00am November 03, 2024 1:20pm Take 3 tablets daily for 3 days, then 2 tablets daily for 2 days. Start: 01-01-2024 End: 01-13-2024 Prednisone 10 mg tablet Disc ontinued 10 mg PO daily January 01, 2024 12:00am January 13, 2024 3:04pm take 4 tabs for three days, then 3 tabs for three days, then 2 tabs for three days, then 1 tab for 3 days Start: 12-28-2023 End: 01-01-2024 take 2 tablets by mouth once daily Prednisone 20 mg tablet Discontinued 40 mg PO DAILY December 28, 2023 1:00am January 01, 2024 8:49am Start: 12-28-2023 End: 01-01-2024 take 40 mg by mouth once daily Prednisone Discontinued 40 MG PO DAILY December 28, 2023 1:00am January 01, 2024 8:49am Start: 08-28-2023 End: 10-14-2023 Prednisone 10 mg tablet Disc ontinued 10 mg PO daily August 28, 2023 1:00am October 14, 2023 12:13pm take 4 tabs for three days, then 3 tabs for three days, then 2 tabs for three days, then 1 tab for 3 days Start: 12-28-2022 End: 02-13-2023 take 1 tablet by mouth every other day Prednisone 10 mg tablets,dose pack Discontinued 10 mg PO EVERY OTHER DAY December 28, 2022 1:00am February 13, 2023 6:46am Start: 03-26-2017 take 1 tablet by avril th twice daily predniSONE (DELTASONE) 20 mg tablet Take 1 tablet by mouth twice daily. 60 tablet 3 03/26/2017 Active Comment on above: Take 1 tablet by avril th twice daily. 60 actuat tiotropium 0.26142 mg/actuat inhalation spray (13 sources) Anticholinergic Start: 09-10-20 End: 10-14-20 take 1.25 ug by inhalation once daily Tiotropium [place] (Spiriva Respimat) 1.25 mcg/actuation mist Discontinued 2 NMA INHALATION DAILY September 10, 2023 1:00am October 14, 2023 12:14pm Start: 09-10-2023 End: 10-14-2023 take 1 puff(s) by inhalation once daily Tiotropium [place] (Spiriva Respimat) 1.25 mcg/actuation mist Discontinued 2 PUFF INHALATION DAILY September 10, 2023 1:00am October 14, 2023 12:14pm Problems Active Problems Problem Classification Problem Date Documented Date Episodic/Chronic Acute bronchitis (7 sources) Acute bronchitis with bronchospasm; Translations: [Acute bronchitis, unspecified] 12-28-2023 Episodic Asthma (20 sources) Asthma; Translations: [Unspecified asthma, uncomplicated] Onset: 11-28-2024 01-02-2023 Chronic Cancer of breast (20 sources) Infiltrating duct carcinoma of breast; Translations: [Malignant neoplasm of unspecified site of unspecified female breast] Onset: 05-10-2024 12-11-2023 Chronic Comment on above: Bilateral breast can cers, the right is invasive ductal, the left is invasive lobular & ductal. Both tumors are ER positive, SC positive HER2/fady negative (0).Status post bilateral mastectomies and bilateral sentinel lymph node biopsies February 06, 2024.Pathologic stage:1. Right breast: Stage IIIA (T3, N1, M0)Oncotype Dx score of 42. Left breast: Stage IIA (T2, N0, M0)Oncotype Dx score of 8 Initial staging by PET/CT showed no definitive evidence of distant metastatic disease. Abnormal uptake SUV 2.8 in the left adrenal but imaging with MRI did not show an anatomic lesion making metastases unlikely.Genetic testing (December 30, 2023) showed no known pathogenic variants.Started Anastrozole and the stopped after a week. She has reservations about taking any hormonal therapy.Had a long discussion about hormone receptor positive breast cancer. Cancer of breast (3 sources) History of malignant neoplasm of breast; Translations: [Personal history of malignant neoplasm of breast] 04-27-2024 Episodic Deficiency and other anemia (1 source) Anemia, unspecified; Translations: [Anemia, unspecified] Onset: 04-07-2025 Episodic Essential hypertension (20 sources) Hypertensive disorder; Translations: [Essential (primary) hypertension] Onset: 11-04-2024 01-23-2020 Chronic Nonmalignant breast conditions (20 sources) Breast lump; Translations: [Unspecified lump in the left breast, unspecified quadrant] 12-04-2023 Episodic Nonspecific chest pain (20 sources) Chest pain; Translations: [Chest pain, unspecified] 01-23-2020 Episodic Open wounds of extremities (20 sources) Cat bite - wound; Translations: [Open bite of right hand, initial encounter] 01-18-2022 Episodic Osteoarthritis (13 sources) Arthritis; Translations: [Unspecified osteoarthritis, unspecified site] 10-14-2023 Chronic Osteoporosis (13 sources) Senile osteoporosis; Translations: [Age-related osteoporosis without current pathological fracture] 10-14-2023 Chronic Other circulatory disease (3 sources) H/O: hypertension; Translations: [Personal history of other diseases of the circulatory system] 04-27-2024 Episodic Other lower respiratory disease (20 sources) Cough; Translations: [Cough] 01-02-2023 Episodic Other skin disorders (19 sources) Localized swelling, mass and lump, right upper limb; Translations: [Mass of right axilla] 12-04-2023 Episodic Comment on above: Did collapse with co re biopsy 12/04/2023 may be just a cyst and not a lymph node, enlarged on MRI did not enhance on PET scan. Pneumonia (except that caused by tuberculosis or sexually transmitted disease) (13 sources) Pneumonia; Translations: [Pneumonia, unspecified organism] 10-26-2023 Episodic Regional enteritis and ulcerative colitis (15 sources) Ulcerative colitis; Translations: [Ulcerative colitis, unspecified, without complications] 07-14-2008 Chronic Residual codes; unclassified (1 source) Acquired absence of bilateral breasts and nipples; Translations: [Acquired absence of breast and nipple] 02-07-2024 Episodic Residual codes; unclassified (2 sources) Estrogen receptor positive status [ER+]; Translations: [Estrogen receptor positive status [ER+]] Onset: 04-05-2025 Episodic Spondylosis; intervertebral disc disorders; other back problems (13 sources) Degeneration of intervertebral disc; Translations: [Degeneration of intervertebral disc] 10-14-2023 Chronic Thyroid disorders (1 source) Nontoxic multinodular goiter; Translations: [Nontoxic multinodular goiter] Onset: 07-21-2024 Chronic Unclassified (3 sources) Z85.3 - Personal history of malignant neoplasm of breast,C50.112 - Malignant neoplasm of central portion of left female breast,Z17.0 - Estrogen receptor positive status [ER+] Past or Other Problems Problem Classification Problem [...] Test Name Value Interpretation Reference Range Facility CA 15-3on 04-07-2025 CA 15-3 17.2 U/mL Normal 0.0-25.0 [facility] Comment on above: Result Comment: [employer] Electrochemiluminescence Immunoassay(ECLIA)Values obtained with different assay methods or kits cannotbe used interchangeably. Results cannot be interpreted asabsolute evidence of the presence or absence of malignantdisease.Performed at: [facility] [place] [id number] Director: Scott Shepherd PhD, Phone: [phone] Performed By: #### L 3100.5000, L3100.5040, L3100.5030, L3100.2300 ####[facility] [id number] [place], [place], [id number] CA 27.29on 04-07-2025 CA 27.29 24.4 U/mL Normal 0.0-38.6 [facility] Comment on above: Result Comment: [employer] Immunochemiluminometric Methodology (ICMA)Values obtained with different assay methods or kits cannotbe used interchangeably. Results cannot be interpreted asabsolute evidence of the presence or absence of malignantdisease. Performed By: #### L 3100.5000, L3100.5040, L3100.5030, L3100.2300 ####[facility] [id number] [place], [place], [id number] Cancer Antigen 125on 025 CA 125 8.2 U/mL Normal 0.0-38.1 [facility] Comment on above: Result Comment: [employer] Electrochemiluminescence Immunoassay(ECLIA)Values obtained with different assay methods or kits cannotbe used interchangeably. Results cannot be interpreted asabsolute evidence of the presence or absence of malignantdisease. Performed By: #### L 3100.5000, L3100.5040, L3100.5030, L3100.2300 ####[facility] [id number] [place], [place], [id number] Carcinoembryonic Antigenon 0 - CEA 4.3 ng/mL Normal 0.0-4.7 [facility] Comment on above: Result Comment: Nons mokers <3.9 Smokers <5.6[employer] Electrochemiluminescence Immunoassay(ECLIA)Values obtained with different assay methods or kitscannot be used interchangeably. Results cannot beinterpreted as absolute evidence of the presence orabsence of malignant disease. Performed By: #### L 3100.5000, L3100.5040, L3100.5030, L3100.2300 ####[facility] [address] [place], [place], [id number] CA 15-3Ordered By: Juventino forte on 04-05-2025 CA 15-3 17.2 U/mL 0.0-25.0 [facility] Comment on above: [employer] El ectrochemiluminescence Immunoassay(ECLIA)Values obtained with different assay methods or kits cannotbe used interchangeably. Results cannot be interpreted asabsolute evidence of the presence or absence of malignantdisease.Performed at: [employer] [address] [id number] Director: Scott Shepherd PhD, Phone: [phone] CA 27.29Ordered By: Juventino harkins on 04-05-2025 CA 27.29 24.4 U/mL 0.0-38.6 [facility] Comment on above: [employer] SummitIGaur Immu nochemiluminometric Methodology (ICMA)Values obtained with different assay methods or kits cannotbe used interchangeably. Results cannot be interpreted asabsolute evidence of the presence or absence of malignantdisease. Cancer antigen 125 (CA-125) measurementOrdered By: Juventino Rodriguez on 04-05-2025 Cancer antigen 125 (CA-125) measurement 8.2 U/mL 0.0-38.1 [facility] Comment on above: [employer] El ectrochemiluminescence Immunoassay(ECLIA)Values obtained with different assay methods or kits cannotbe used interchangeably. Results cannot be interpreted asabsolute evidence of the presence or absence of malignantdisease. NATERAon 04-05-2025 NATMARIXA SEE SCANNED REPORT Normal [facility] Comment on above: Performed By: #### L 900.0098 ####[facility] [address] [place], [address] Oncology Visit Reporton 03-20 Oncology Visit Report Normal [facility] Serum or plasma carcinoembry onic antigen measurement (mass/volume)Ordered By: Juventino Rodriguez on 04-05-2025 Carcinoembryonic Ag [Mass/Vol] 4.3 ng/mL 0.0-4.7 [facility] Comment on above: Nonsmokers <3.9 Smok ers <5.6[employer] Electrochemiluminescence Immunoassay(ECLIA)Values obtained with different assay methods or kitscannot be used interchangeably. Results cannot beinterpreted as absolute evidence of the presence orabsence of malignant disease. Absolute lymphocyte countOrd ered By: Jose Garzon on 04-04-2025 Lymphocytes Auto (Unsp spec) [#/Vol] 1.51 10*3/uL 0.83-4.51 [facility] Absolute neutrophil countOrd ered By: Jose Garzon on 04-04-2025 Neutrophils (Bld) [#/Vol] 4.7 10*3/uL 2.0-7.7 [facility] Automated lymphocyte count a s percentage of total leukocytesOrdered By: Jose Garzon on 04-04-2025 Lymphocytes/100 WBC Auto (Unsp spec) 21.0 % 19-41 [facility] Basophil percentageOrdered B y: Jose Garzon on 04-04-2025 Basophils/100 WBC (Bld) 0.8 % 0-1 [facility] CBC W/Diff, Automatedon 03-20 Absolute Lymph 1.51 X10 3/uL Normal 0.83-4.51 [facility] Comment on above: Performed By: #### L 100.0100, L503.6550, L503.6030, L503.0106 ####[facility] [address] [place], [address] Absolute Neut 4.7 X10 3/uL Normal 2.0-7.7 [facility] Comment on above: Performed By: #### L 100.0100, L503.6550, L503.6030, L503.0106 ####[facility] [address] [place], [address] Basophils/100 WBC (Bld) 0.8 % Normal 0-1 [facility] Comment on above: Performed By: #### L 100.0100, L503.6550, L503.6030, L503.0106 ####[facility] [address] [place], [address] Eosinophils/100 WBC (Bld) 2.8 % Normal 0-5 [facility] Comment on above: Performed By: #### L 100.0100, L503.6550, L503.6030, L503.0106 ####[facility] [address] [place], [address] Erythrocyte distribution width (RBC) [Ratio] 14.5 % Normal 11.6-14.6 [facility] Comment on above: Performed By: #### L 100.0100, L503.6550, L503.6030, L503.0106 ####[facility] [address] [place], [address] Hematocrit (Bld) [Volume fraction] 35.6 % Low 37-47 [facility] Comment on above: Performed By: #### L 100.0100, L503.6550, L503.6030, L503.0106 ####[facility] [address] [place], [address] Hemoglobin (Bld) [Mass/Vol] 11.4 g/dL Low 12.0-15.0 [facility] Comment on above: Performed By: #### L 100.0100, L503.6550, L503.6030, L503.0106 ####[facility] [address] [place], [address] IG% 0.800 Normal 0.0-0.9 [facility] Comment on above: Result Comment: IG% - Immature Granulocytes (promyelocytes, myelocytes andmetamyelocytes) > 1% indicates that a LEFT SHIFT is Present. Performed By: #### L 100.0100, L503.6550, L503.6030, L503.0106 ####[facility] [address] [place], [address] Lymphocytes/100 WBC (Bld) 21.0 % Normal 19-41 [facility] Comment on above: Performed By: #### L 100.0100, L503.6550, L503.6030, L503.0106 ####[facility] [address] [place], [address] MCH (RBC) [Entitic mass] 28.4 pg Normal 27.0-32.0 [facility] Comment on above: Performed By: #### L 100.0100, L503.6550, L503.6030, L503.0106 ####[facility] [address] [place], [address] MCHC (RBC) [Mass/Vol] 32.0 g/dL Normal 32-36 [facility] Comment on above: Performed By: #### L 100.0100, L503.6550, L503.6030, L503.0106 ####[facility] [address] [place], [address] MCV (RBC) [Entitic vol] 88.8 fL Normal 81-99 [facility] Comment on above: Performed By: #### L 100.0100, L503.6550, L503.6030, L503.0106 ####[facility] [address] [place], [address] Monocytes/100 WBC (Bld) 9.2 % Normal 0-10 [facility] Comment on above: Performed By: #### L 100.0100, L503.6550, L503.6030, L503.0106 ####[facility] [address] [place], [address] Neutrophils/100 WBC (Bld) 65.4 % Normal 47-70 [facility] Comment on above: Performed By: #### L 100.0100, L503.6550, L503.6030, L503.0106 ####[facility] [address] [place], [address] Nucleated RBC (Bld) [#/Vol] 0 10*3/uL Normal 0-5 [facility] Comment on above: Performed By: #### L 100.0100, L503.6550, L503.6030, L503.0106 ####[facility] [address] [place], [address] Platelet mean volume (Bld) [Entitic vol] 9.8 fL Normal 6.2-12.0 [facility] Comment on above: Performed By: #### L 100.0100, L503.6550, L503.6030, L503.0106 ####[facility] [address] [place], [address] Platelets (Bld) [#/Vol] 419 10*3/uL Normal 150-450 [facility] Comment on above: Performed By: #### L 100.0100, L503.6550, L503.6030, L503.0106 ####[facility] [address] [place], [address] RBC (Bld) [#/Vol] 4.01 10*6/uL Low 4.2-5.4 [facility] Comment on above: Performed By: #### L 100.0100, L503.6550, L503.6030, L503.0106 ####[facility] [address] [place], [address] RDW SD 46.6 fl High 35.1-43.9 [facility] Comment on above: Performed By: #### L 100.0100, L503.6550, L503.6030, L503.0106 ####[facility] [address] [place], [address] WBC (Bld) [#/Vol] 7.2 10*3/uL Normal 4.4-11.0 [facility] Comment on above: Performed By: #### L 100.0100, L503.6550, L503.6030, L503.0106 ####[facility] [address] [place], [address] Eosinophil percentageOrdered By: Jose Garzon on 04-04-2025 Eosinophils/100 WBC (Bld) 2.8 % 0-5 [facility] Erythrocyte distribution wid th ratioOrdered By: Jose Garzon on 04-04-2025 Erythrocyte distribution width (RBC) [Ratio] 14.5 % 11.6-14.6 [facility] Erythrocyte distribution wid th standard deviationOrdered By: Jose Garzon on 04-04-2025 Erythrocyte distribution width (RBC) [Ratio] 46.6 fl High 35.1-43.9 [facility] Ferritinon 04-04-2025 Ferritin [Mass/Vol] 20 ng/mL Low 22-378 [facility] Comment on above: Performed By: #### L 100.0100, L503.6550, L503.6030, L503.0106 ####[facility] [address] [place], [address] Hematocrit Auto (Bld) [Volum e fraction]Ordered By: Jose Garzon on 04-04-2025 Hematocrit (Bld) [Volume fraction] 35.6 % Low 37-47 [facility] Hemoglobin measurementOrdere d By: Jose Garzon on 04-04-2025 Hemoglobin (Bld) [Mass/Vol] 11.4 g/dL Low 12.0-15.0 [facility] Immature granulocytes/100 WB C Auto (Bld)Ordered By: Jose Garzon on 04-04-2025 Immature granulocytes/100 WBC (Bld) 0.800 % 0.0-0.9 [facility] Comment on above: IG% - Immature Granu locytes (promyelocytes, myelocytes and metamyelocytes) > 1% indicates that a LEFT SHIFT is Present. Iron measurement (mass/mass) Ordered By: Jose Garzon on 04-04-2025 Iron (Unsp spec) [Mass/Mass] 110 ug/dL 50-170 [facility] Iron+Iron Binding Capacityon 04-04-2025 Iron [Mass/Vol] 110 ug/dL Normal 50-170 [facility] Comment on above: Performed By: #### L 100.0100, L503.6550, L503.6030, L503.0106 ####[facility] [address] [facility] [address] IRON SATURATION 29.0 Normal 13-59 [facility] Comment on above: Performed By: #### L 100.0100, L503.6550, L503.6030, L503.0106 ####[facility] [address] [place], [address] TIBC 384 ug/dL Normal 250-450 [facility] Comment on above: Performed By: #### L 100.0100, L503.6550, L503.6030, L503.0106 ####[facility] [address] [facility] [address] UIBC 274 ug/dL Normal 228-428 [facility] Comment on above: Performed By: #### L 100.0100, L503.6550, L503.6030, L503.0106 ####[facility] [address] [place], [address] MCV (mean corpuscular volume ) determinationOrdered By: Jose Garzon on 04-04-2025 MCV (RBC) [Entitic vol] 88.8 fL 81-99 [facility] Mean corpuscular hemoglobin (MCH) determinationOrdered By: Jose Garzon on 04-04-2025 MCH (RBC) [Entitic mass] 28.4 pg 27.0-32.0 [facility] Mean corpuscular hemoglobin concentration (MCHC) determinationOrdered By: Jose Garzon on 04-04-2025 MCHC (RBC) [Mass/Vol] 32.0 g/dL 32-36 [facility] Mean platelet volume determi nationOrdered By: Jose Garzon on 04-04-2025 Platelet mean volume (Bld) [Entitic vol] 9.8 fL 6.2-12.0 [facility] Monocyte percentageOrdered B y: Jose Garzon on 04-04-2025 Monocytes/100 WBC (Bld) 9.2 % 0-10 [facility] Neutrophil percentageOrdered By: Jose Garzon on 04-04-2025 Neutrophils/100 WBC (Bld) 65.4 % 47-70 [facility] No Panel InformationOrdered By: Jose Garzon on 04-04-2025 Unsaturated Iron Binding Capacity 274 ug/dL 228-428 [facility] Nucleated red blood cell per centageOrdered By: Jose Garzon on 04-04-2025 Nucleated RBC/100 WBC (Bld) [Ratio] 0 % 0-5 [facility] Platelet countOrdered By: Armida Garzon on 04-04-2025 Platelets (Bld) [#/Vol] 419 10*3/uL 150-450 [facility] RBC Auto (Bld) [#/Vol]Ordere d By: Jose Garzon on 04-04-2025 RBC (Bld) [#/Vol] 4.01 10*6/uL Low 4.2-5.4 [facility] Serum or plasma ferritin sakina surement (mass/volume)Ordered By: Jose Garzon on 04-04-2025 Ferritin [Mass/Vol] 20 ng/mL Low 22-378 [facility] Serum or plasma iron saturat ion measurement (mass fraction)Ordered By: Jose Garzon on 04-04-2025 Iron saturation [Mass fraction] 29.0 % 13-59 [facility] Vitamin B12on 04-04-2025 Cobalamin (Vitamin B12) [Mass/Vol] 469 pg/mL Normal 180-914 [facility] Comment on above: Performed By: #### L 100.0100, L503.6550, L503.6030, L503.0106 ####[facility] [address] [facility] [place], [place], [id number] Vitamin B12 ser/plasOrdered By: Jose Garzon on 04-04-2025 Cobalamin (Vitamin B12) [Mass/Vol] 469 pg/mL 180-914 [facility] White blood cell (WBC) count Ordered By: Jose Garzon on 04-04-2025 WBC (Bld) [#/Vol] 7.2 10*3/uL 4.4-11.0 [facility] Ferritinon 03-31-2025 Ferritin [Mass/Vol] 15 ng/mL Low 22-378 [facility] Comment on above: Order Comment: GRACIA Gomez ADD IBC WAQAR B12 TO BLOOD DRAWN 03/30/25 PERDR.SCHINNEROrder Date: 03/30/25Order Info: [id number] - CMPOrder Info: [id number] - LIPID Performed By: #### L 503.6550, L506.1001, L503.0106, L502.0250, L503.6030 ####[facility] [address] [facility] [place], [place], [id number] Iron+Iron Binding Capacityon 03-31-2025 Iron [Mass/Vol] 34 ug/dL Low 50-170 [facility] Comment on above: Order Comment: GRACIA Gomez ADD IBC WAQAR B12 TO BLOOD DRAWN 03/30/25 PERDR.SCHINNEROrder Date: 03/30/25Order Info: [id number] - CMPOrder Info: [id number] - LIPIDadd one 06/09/24 Performed By: #### L 503.6550, L506.1001, L503.0106, L502.0250, L503.6030 ####[facility] [address] [place], [address] IRON SATURATION 9.0 Low 13-59 [facility] Comment on above: Order Comment: GRACIA Patricia ADD IBC WAQAR B12 TO BLOOD DRAWN 03/30/25 PERDR.SCHINNEROrder Date: 03/30/25Order Info: [id number] - CMPOrder Info: [id number] - LIPIDadd one 06/09/24 Performed By: #### L 503.6550, L506.1001, L503.0106, L502.0250, L503.6030 ####[facility] [address] [place], [address] TIBC 366 ug/dL Normal 250-450 [facility] Comment on above: Order Comment: JINURIEL Patricia ADD IBC WAQAR B12 TO BLOOD DRAWN 03/30/25 PERDR.SCHINNEROrder Date: 03/30/25Order Info: [id number] - CMPOrder Info: [id number] - LIPIDadd one 06/09/24 Performed By: #### L 503.6550, L506.1001, L503.0106, L502.0250, L503.6030 ####[facility] [address] [place], [address] UIBC 332 ug/dL Normal 228-428 [facility] Comment on above: Order Comment: JINURIEL Patricia ADD IBC WAQAR B12 TO BLOOD DRAWN 03/30/25 PERDR.SCHINNEROrder Date: 03/30/25Order Info: [id number] - CMPOrder Info: [id number] - LIPIDadd one 06/09/24 Performed By: #### L 503.6550, L506.1001, L503.0106, L502.0250, L503.6030 ####[facility] [address] [place], [address] Vitamin B12on 03-31-2025 Cobalamin (Vitamin B12) [Mass/Vol] 463 pg/mL Normal 180-914 [facility] Comment on above: Order Comment: GRACIA Gomez ADD IB WAQAR B12 TO BLOOD DRAWN 03/30/25 MARLINOrder Date: 03/30/25Order Info: [id number] - CMPOrder Info: [id number] - LIPID Performed By: #### L 503.6550, L506.1001, L503.0106, L502.0250, L503.6030 ####[facility] [address] [place], [address] Absolute lymphocyte countOrd ered By: Jose Garzon on 03-30-2025 Lymphocytes Auto (Unsp spec) [#/Vol] 1.21 10*3/uL 0.83-4.51 [facility] Absolute neutrophil countOrd ered By: Jose Garzon on 03-30-2025 Neutrophils (Bld) [#/Vol] 7.7 10*3/uL 2.0-7.7 [facility] Anion gap in Serum or Plasma Ordered By: Jose Garzon on 03-30-2025 Anion gap [Moles/Vol] 10 mmol/L 5-15 [facility] Automated lymphocyte count a s percentage of total leukocytesOrdered By: Jose Garzon on 03-30-2025 Lymphocytes/100 WBC Auto (Unsp spec) 12.2 % Low 19-41 [facility] BUN/creatinine ratioOrdered By: Jose Garzon on 03-30-2025 Urea nitrogen/Creatinine [Mass ratio] 21.4 mg/mg High 10-20 [facility] Basophil percentageOrdered B y: Jose Garzon on 03-30-2025 Basophils/100 WBC (Bld) 0.6 % 0-1 [facility] Bilirubin, totalOrdered By: Jose Garzon on 03-30-2025 Bilirubin [Mass/Vol] mg/dL 0.00-1.30 [facility] CBC W/Diff, Automatedon 03-20 Absolute Lymph 1.21 X10 3/uL Normal 0.83-4.51 [facility] Comment on above: Order Comment: Order Date: 03/30/25Order Info: [id number] - CBCD Performed By: #### L 500.4050, L100.0100, L501.9985, L500.4100 ####[facility] [address] [place], [address] Absolute Neut 7.7 X10 3/uL Normal 2.0-7.7 [facility] Comment on above: Order Comment: Order Date: 03/30/25Order Info: [id number] - CBCD Performed By: #### L 500.4050, L100.0100, L501.9985, L500.4100 ####[facility] [address] [place], [address] Basophils/100 WBC (Bld) 0.6 % Normal 0-1 [facility] Comment on above: Order Comment: Order Date: 03/30/25Order Info: [id number] - CBCD Performed By: #### L 500.4050, L100.0100, L501.9985, L500.4100 ####[facility] [address] [place], [address] Eosinophils/100 WBC (Bld) 2.5 % Normal 0-5 [facility] Comment on above: Order Comment: Order Date: 03/30/25Order Info: [id number]- - CBCD Performed By: #### L 500.4050, L100.0100, L501.9985, L500.4100 ####[facility] [address] [place], [address] Erythrocyte distribution width (RBC) [Ratio] 14.6 % Normal 11.6-14.6 [facility] Comment on above: Order Comment: Order Date: 03/30/25Order Info: [id number] - CBCD Performed By: #### L 500.4050, L100.0100, L501.9985, L500.4100 ####[facility] [address] [place], [address] Hematocrit (Bld) [Volume fraction] 34.9 % Low 37-47 [facility] Comment on above: Order Comment: Order Date: 03/30/25Order Info: [id number] - CBCD Performed By: #### L 500.4050, L100.0100, L501.9985, L500.4100 ####[facility] [address] [place], [address] Hemoglobin (Bld) [Mass/Vol] 11.6 g/dL Low 12.0-15.0 [facility] Comment on above: Order Comment: Order Date: 03/30/25Order Info: [id number]- - CBCD Performed By: #### L 500.4050, L100.0100, L501.9985, L500.4100 ####[facility] [address] [place], [address] IG% 0.500 Normal 0.0-0.9 [facility] Comment on above: Order Comment: Order Date: 03/30/25Order Info: [id number] - CBCD Result Comment: IG% - Immature Granulocytes (promyelocytes, myelocytes andmetamyelocytes) > 1% indicates that a LEFT SHIFT is Present. Performed By: #### L 500.4050, L100.0100, L501.9985, L500.4100 ####[facility] [address] [place], [address] Lymphocytes/100 WBC (Bld) 12.2 % Low 19-41 [facility] Comment on above: Order Comment: Order Date: 03/30/25Order Info: [id number] - CBCD Performed By: #### L 500.4050, L100.0100, L501.9985, L500.4100 ####[facility] [address] [place], [address] MCH (RBC) [Entitic mass] 29.1 pg Normal 27.0-32.0 [facility] Comment on above: Order Comment: Order Date: 03/30/25Order Info: [id number] - CBCD Performed By: #### L 500.4050, L100.0100, L501.9985, L500.4100 ####[facility] [address] [place], [address] MCHC (RBC) [Mass/Vol] 33.2 g/dL Normal 32-36 [facility] Comment on above: Order Comment: Order Date: 03/30/25Order Info: [id number] - CBCD Performed By: #### L 500.4050, L100.0100, L501.9985, L500.4100 ####[facility] [address] [place], [address] MCV (RBC) [Entitic vol] 87.7 fL Normal 81-99 [facility] Comment on above: Order Comment: Order Date: 03/30/25Order Info: [id number] - CBCD Performed By: #### L 500.4050, L100.0100, L501.9985, L500.4100 ####[facility] [address] [place], [address] Monocytes/100 WBC (Bld) 6.4 % Normal 0-10 [facility] Comment on above: Order Comment: Order Date: 03/30/25Order Info: [id number] - CBCD Performed By: #### L 500.4050, L100.0100, L501.9985, L500.4100 ####[facility] [address] [place], [address] Neutrophils/100 WBC (Bld) 77.8 % High 47-70 [facility] Comment on above: Order Comment: Order Date: 03/30/25Order Info: [id number] - CBCD Performed By: #### L 500.4050, L100.0100, L501.9985, L500.4100 ####[facility] [address] [place], [address] Nucleated RBC (Bld) [#/Vol] 0 10*3/uL Normal 0-5 [facility] Comment on above: Order Comment: Order Date: 03/30/25Order Info: [id number] - CBCD Performed By: #### L 500.4050, L100.0100, L501.9985, L500.4100 ####[facility] [address] [place], [address] Platelet mean volume (Bld) [Entitic vol] 10.2 fL Normal 6.2-12.0 [facility] Comment on above: Order Comment: Order Date: 03/30/25Order Info: [id number] - CBCD Performed By: #### L 500.4050, L100.0100, L501.9985, L500.4100 ####[facility] [address] [place], [address] Platelets (Bld) [#/Vol] 364 10*3/uL Normal 150-450 [facility] Comment on above: Order Comment: Order Date: 03/30/25Order Info: [id number] - CBCD Performed By: #### L 500.4050, L100.0100, L501.9985, L500.4100 ####[facility] [address] [place], [address] RBC (Bld) [#/Vol] 3.98 10*6/uL Low 4.2-5.4 [facility] Comment on above: Order Comment: Order Date: 03/30/25Order Info: [id number] - CBCD Performed By: #### L 500.4050, L100.0100, L501.9985, L500.4100 ####[facility] [address] [place], [address] RDW SD 46.5 fl High 35.1-43.9 [facility] Comment on above: Order Comment: Order Date: 03/30/25Order Info: [id number] - CBCD Performed By: #### L 500.4050, L100.0100, L501.9985, L500.4100 ####[facility] [address] [place] [place], [address] WBC (Bld) [#/Vol] 9.9 10*3/uL Normal 4.4-11.0 [facility] Comment on above: Order Comment: Order Date: 03/30/25Order Info: [id number] - CBCD Performed By: #### L 500.4050, L100.0100, L501.9985, L500.4100 ####[facility] [address] [place], [address] Calculated very low density lipoprotein (VLDL) cholesterol measurementOrdered By: Jose Garzon on 03-30-2025 Calculated very low density lipoprotein (VLDL) cholesterol measurement 20 mg/dL 5-40 [facility] Carbon dioxide, total [Moles /volume] in Central venous bloodOrdered By: Jose Garzon on 03-30-2025 CO2 [Moles/Vol] 24.3 mmol/L 21.0-32.0 [facility] Chloride assayOrdered By: Armida Garzon on 03-30-2025 Chloride [Moles/Vol] 105 mmol/L 98-108 [facility] Comprehensive Metabolic Prof ilon 03-30-2025 Albumin [Mass/Vol] 4.1 g/dL Normal 3.4-4.8 [facility] Comment on above: Order Comment: Order Date: 03/30/25Order Info: [id number] - CMPOrder Info: [id number] - LIPIDadd one 06/09/24 Performed By: #### L 500.4050, L100.0100, L501.9985, L500.4100 ####[facility] [address] [place], [place], [id number] Albumin/Globulin [Mass ratio] 1.8 {ratio} Normal 0.9-2.4 [facility] Comment on above: Order Comment: Order Date: 03/30/25Order Info: [id number] - CMPOrder Info: [id number] - LIPIDadd one 06/09/24 Performed By: #### L 500.4050, L100.0100, L501.9985, L500.4100 ####[facility] [address] [place], [address] ALK PHOS 76 U/L Normal 35-104 [facility] Comment on above: Order Comment: Order Date: 03/30/25Order Info: [id number] - CMPOrder Info: [id number] - LIPIDadd one 06/09/24 Performed By: #### L 500.4050, L100.0100, L501.9985, L500.4100 ####[facility] [address] [place], [address] ALT [Catalytic activity/Vol] 26 U/L Normal <=34 [facility] Comment on above: Order Comment: Order Date: 03/30/25Order Info: [id number] - CMPOrder Info: [id number] - LIPIDadd one 06/09/24 Performed By: #### L 500.4050, L100.0100, L501.9985, L500.4100 ####[facility] [address] [place], [address] AST [Catalytic activity/Vol] 26 U/L Normal <=31 [facility] Comment on above: Order Comment: Order Date: 03/30/25Order Info: [id number] - CMPOrder Info: [id number] - LIPIDadd one 06/09/24 Performed By: #### L 500.4050, L100.0100, L501.9985, L500.4100 ####[facility] [address] [place], [address] BUN/CRE 21.4 RATIO High 10-20 [facility] Comment on above: Order Comment: Order Date: 03/30/25Order Info: [id number] - CMPOrder Info: [id number] - LIPIDadd one 06/09/24 Performed By: #### L 500.4050, L100.0100, L501.9985, L500.4100 ####[facility] [address] [place], [address] Calcium [Mass/Vol] 9.7 mg/dL Normal 7.6-11.0 [facility] Comment on above: Order Comment: Order Date: 03/30/25Order Info: [id number] - CMPOrder Info: [id number] - LIPIDadd one 06/09/24 Performed By: #### L 500.4050, L100.0100, L501.9985, L500.4100 ####[facility] [address] [place], [address] Chloride [Moles/Vol] 105 mmol/L Normal 98-108 [facility] Comment on above: Order Comment: Order Date: 03/30/25Order Info: [id number] - CMPOrder Info: [id number] - LIPIDadd one 06/09/24 Performed By: #### L 500.4050, L100.0100, L501.9985, L500.4100 ####[facility] [address] [place], [address] CO2 [Moles/Vol] 24.3 mmol/L Normal 21.0-32.0 [facility] Comment on above: Order Comment: Order Date: 03/30/25Order Info: [id number] - CMPOrder Info: [id number] - LIPIDadd one 06/09/24 Performed By: #### L 500.4050, L100.0100, L501.9985, L500.4100 ####[facility] [address] [place], [address] Creatinine [Mass/Vol] 0.67 mg/dL Low 0.70-1.20 [facility] Comment on above: Order Comment: Order Date: 03/30/25Order Info: [id number] - CMPOrder Info: [id number] - LIPIDadd one 06/09/24 Performed By: #### L 500.4050, L100.0100, L501.9985, L500.4100 ####[facility] [address] [place], [address] GAP 10 Normal 5-15 [facility] Comment on above: Order Comment: Order Date: 03/30/25Order Info: [id number] - CMPOrder Info: [id number] - LIPIDadd one 06/09/24 Performed By: #### L 500.4050, L100.0100, L501.9985, L500.4100 ####[facility] [address] [place], [address] GFR/1.73 sq M.predicted among non-blacks MDRD (S/P/Bld) [Vol rate/Area] 95 mL/min/{1.73_m2} Normal >60 [facility] Comment on above: Order Comment: Order Date: 03/30/25Order Info: [id number] - CMPOrder Info: [id number] - LIPIDadd one 06/09/24 Result Comment: mL/m in/1.73m2 CKD-EPI Creatinine Equation (2020) Performed By: #### L 500.4050, L100.0100, L501.9985, L500.4100 ####[facility] [address] [place], [address] Globulin (S) [Mass/Vol] 2.3 g/dL Normal 2.2-4.2 [facility] Comment on above: Order Comment: Order Date: 03/30/25Order Info: [id number] - CMPOrder Info: [id number] - LIPIDadd one 06/09/24 Performed By: #### L 500.4050, L100.0100, L501.9985, L500.4100 ####[facility] [address] [place], [address] Glucose [Mass/Vol] 113 mg/dL High 70-99 [facility] Comment on above: Order Comment: Order Date: 03/30/25Order Info: [id number] - CMPOrder Info: [id number] - LIPIDadd one 06/09/24 Performed By: #### L 500.4050, L100.0100, L501.9985, L500.4100 ####[facility] [address] [place], [address] Potassium [Moles/Vol] 4.6 mmol/L Normal 3.3-5.1 [facility] Comment on above: Order Comment: Order Date: 03/30/25Order Info: [id number] - CMPOrder Info: [id number] - LIPIDadd one 06/09/24 Performed By: #### L 500.4050, L100.0100, L501.9985, L500.4100 ####[facility] [address] [place], [address] Sodium [Moles/Vol] 140 mmol/L Normal 133-145 [facility] Comment on above: Order Comment: Order Date: 03/30/25Order Info: [id number] - CMPOrder Info: [id number] - LIPIDadd one 06/09/24 Performed By: #### L 500.4050, L100.0100, L501.9985, L500.4100 ####[facility] [address] [place], [address] T BILI < 0.15 Normal 0.00-1.30 [facility] Comment on above: Order Comment: Order Date: 03/30/25Order Info: [id number] - CMPOrder Info: [id number] - LIPIDadd one 06/09/24 Performed By: #### L 500.4050, L100.0100, L501.9985, L500.4100 ####[facility] [address] [place], [address] T PROT 6.4 g/dL Normal 5.9-8.4 [facility] Comment on above: Order Comment: Order Date: 03/30/25Order Info: [id number] - CMPOrder Info: [id number] - LIPIDadd one 06/09/24 Performed By: #### L 500.4050, L100.0100, L501.9985, L500.4100 ####[facility] [address] [place], [address] Urea nitrogen [Mass/Vol] 14 mg/dL Normal 4-19 [facility] Comment on above: Order Comment: Order Date: 03/30/25Order Info: [id number] - CMPOrder Info: [id number] - LIPIDadd one 06/09/24 Performed By: #### L 500.4050, L100.0100, L501.9985, L500.4100 ####[facility] [address] [place], [place], [address] Eosinophil percentageOrdered By: Jose Garzon on 03-30-2025 Eosinophils/100 WBC (Bld) 2.5 % 0-5 [facility] Erythrocyte distribution wid th ratioOrdered By: Jose Garzon on 03-30-2025 Erythrocyte distribution width (RBC) [Ratio] 14.6 % 11.6-14.6 [facility] Erythrocyte distribution wid th standard deviationOrdered By: Jose Garzon on 03-30-2025 Erythrocyte distribution width (RBC) [Ratio] 46.5 fl High 35.1-43.9 [facility] Glomerular filtration rate ( GFR) estimation/1.73 sq m using serum, plasma, or whole bOrdered By: Jose Garzon on 03-30-2025 GFR/1.73 sq M.predicted among non-blacks MDRD (S/P/Bld) [Vol rate/Area] 95 mL/min/{1.73_m2} >60 [facility] Comment on above: mL/min/1.73m2 CKD-EP I Creatinine Equation (2020) Hematocrit Auto (Bld) [Volum e fraction]Ordered By: Jose Garzon on 03-30-2025 Hematocrit (Bld) [Volume fraction] 34.9 % Low 37-47 [facility] Hemoglobin A1con 03-30-2025 HbA1c (Bld) [Mass fraction] 6.2 % High <=5.6 [facility] Comment on above: Order Comment: Order Date: 03/30/25Order Info: [id number] - A1C Result Comment: Norm al < 5.7 % Prediabetic 5.7 - 6.4 % Diabetic >or= 6.5 % Please note range changes. Performed By: #### L 500.4050, L100.0100, L501.9985, L500.4100 ####[facility] [address] [place], [address] Hemoglobin A1c percentageOrd ered By: Jose Garzon on 03-30-2025 HbA1c (Bld) [Mass fraction] 6.2 % High <5.7 [facility] Comment on above: Normal < 5.7 % Predi abetic 5.7 - 6.4 % Diabetic >or= 6.5 % Please note range changes. Hemoglobin measurementOrdere d By: Jose Garzon on 03-30-2025 Hemoglobin (Bld) [Mass/Vol] 11.6 g/dL Low 12.0-15.0 [facility] Immature granulocytes/100 WB C Auto (Bld)Ordered By: Jose Garzon on 03-30-2025 Immature granulocytes/100 WBC (Bld) 0.500 % 0.0-0.9 [facility] Comment on above: IG% - Immature Granu locytes (promyelocytes, myelocytes and metamyelocytes) > 1% indicates that a LEFT SHIFT is Present. Iron measurement (mass/mass) Ordered By: Jose Garzon on 03-30-2025 Iron (Unsp spec) [Mass/Mass] 34 ug/dL Low 50-170 [facility] LDL calc ser/plasOrdered By: Jose Garzon on 03-30-2025 Cholesterol in LDL [Mass/Vol] 106 mg/dL [facility] Comment on above: Vdoekgmsbu=211-190 m g/dL & Higher Jgnt=142 mg/dL or greater Laboratory - Chemistry and C hemistry - challengeOrdered By: Jose Garzon on 03-30-2025 AST [Catalytic activity/Vol] 26 U/L <32 [facility] Lipid Profileon 03-30-2025 CHOL:HDL 3.45 Normal [facility] Comment on above: Order Comment: Order Date: 03/30/25Order Info: [id number] - CMPOrder Info: [id number] - LIPID Performed By: #### L 500.4050, L100.0100, L501.9985, L500.4100 ####[facility] [address] [place] [place], [address] Cholesterol [Mass/Vol] 178 mg/dL Normal <=200 [facility] Comment on above: Order Comment: Order Date: 03/30/25Order Info: 07 - CMPOrder Info: [id number] - LIPID Result Comment: Chol esterol level, Desirable <200 mg/dLBorderline high cholesterol 200-239 mg/dLHigh cholesterol >=240 mg/dLRecommendations of the NCEP Adult Treatment Panel for thefollowing risk-cutoff thresholds for the [place] [facility] [place]. Performed By: #### L 500.4050, L100.0100, L501.9985, L500.4100 ####[facility] [address] [place], [address] Cholesterol in HDL [Mass/Vol] 52 mg/dL Normal [facility] Comment on above: Order Comment: Order Date: 03/30/25Order Info: [id number] - CMPOrder Info: [id number] - LIPID Result Comment: Ana onal Cholesterol Education Program (NCEP) guidelines:<40 mg/dL: Low HDL-cholesterol (major risk factor for CHD)>= 60 mg/dL: High HDL-cholesterol (negative risk factor forCHD)HDL-cholesterol is affected by a number of factors, e.g.smoking, exercise, hormones, sex and age. Performed By: #### L 500.4050, L100.0100, L501.9985, L500.4100 ####[facility] [address] [place], [address] Cholesterol in LDL [Mass/Vol] 106 mg/dL Normal [facility] Comment on above: Order Comment: Order Date: 03/30/25Order Info: [id number] - CMPOrder Info: [id number] - LIPID Result Comment: Bord yqlzcg=816-867 mg/dL Higher Iivm=640 mg/dL or greater Performed By: #### L 500.4050, L100.0100, L501.9985, L500.4100 ####[facility] [address] [place], [address] Cholesterol in VLDL [Mass/Vol] 20 mg/dL Normal 5-40 [facility] Comment on above: Order Comment: Order Date: 03/30/25Order Info: [id number] - CMPOrder Info: [id number] - LIPID Performed By: #### L 500.4050, L100.0100, L501.9985, L500.4100 ####[facility] [address] [place], [address] Triglyceride [Mass/Vol] 101 mg/dL Normal [facility] Comment on above: Order Comment: Order Date: 03/30/25Order Info: [id number] - CMPOrder Info: [id number] - LIPID Result Comment: The drugs N-Acetylcysteine and Metamizole may falselydepress this assay.Normal range: <150 mg/dLBorderline High: 150-199 mg/dLHigh: 200-499 mg/dLVery High: >500 mg/dL Performed By: #### L 500.4050, L100.0100, L501.9985, L500.4100 ####[facility] [address] [place], [address] MCV (mean corpuscular volume ) determinationOrdered By: Jose Garzon on 03-30-2025 MCV (RBC) [Entitic vol] 87.7 fL 81-99 [facility] Mean corpuscular hemoglobin (MCH) determinationOrdered By: Jose Garzon on 03-30-2025 MCH (RBC) [Entitic mass] 29.1 pg 27.0-32.0 [facility] Mean corpuscular hemoglobin concentration (MCHC) determinationOrdered By: Jose Garzon on 03-30-2025 MCHC (RBC) [Mass/Vol] 33.2 g/dL 32-36 [facility] Mean platelet volume determi nationOrdered By: Jose Garzon on 03-30-2025 Platelet mean volume (Bld) [Entitic vol] 10.2 fL 6.2-12.0 [facility] Microalb:Creat Ratio,Random URon 03-30-2025 Creatinine [Mass/Vol] 128.00 mg/dL Normal 28.00- 217. 00 [facility] Comment on above: Performed By: #### L 503.6550, L506.1001, L503.0106, L502.0250, L503.6030 ####[facility] [address] [place], [address] MALB:CREAT UNABLE TO CALCULATE Normal [facility] Comment on above: Performed By: #### L 503.6550, L506.1001, L503.0106, L502.0250, L503.6030 ####[facility] [address] [place], [address] MICROALBUMIN,UR < 12.0 Normal NO RANGE EST. [facility] Comment on above: Performed By: #### L 503.6550, L506.1001, L503.0106, L502.0250, L503.6030 ####[facility] [address] [place], [address] Microalbumin/creat ratio urO rdered By: Jose Garzon on 03-30-2025 Urine microalbumin/creatinine ratio measurement UNABLE TO CALCULATE mg/g CRE [facility] Monocyte percentageOrdered B y: Jose Garzon on 03-30-2025 Monocytes/100 WBC (Bld) 6.4 % 0-10 [facility] Neutrophil percentageOrdered By: Jose Garzon on 03-30-2025 Neutrophils/100 WBC (Bld) 77.8 % High 47-70 [facility] No Panel InformationOrdered By: Jose Garzon on 03-30-2025 Unsaturated Iron Binding Capacity 332 ug/dL 228-428 [facility] Nucleated red blood cell per centageOrdered By: Jose Garzon on 03-30-2025 Nucleated RBC/100 WBC (Bld) [Ratio] 0 % 0-5 [facility] Platelet countOrdered By: Armida Garzon on 03-30-2025 Platelets (Bld) [#/Vol] 364 10*3/uL 150-450 [facility] Potassium measurement (mass/ volume)Ordered By: Jose Garzon on 03-30-2025 Potassium (Unsp spec) [Mass/Vol] 4.6 mmol/L 3.3-5.1 [facility] RBC Auto (Bld) [#/Vol]Ordere d By: Jose Garzon on 03-30-2025 RBC (Bld) [#/Vol] 3.98 10*6/uL Low 4.2-5.4 [facility] Random urine creatinine teddy urement (mass/volume)Ordered By: Jose Garzon on 03-30-2025 Creatinine Unsp time (U) [Mass/Vol] 128.00 mg/dL 28.00-217. 00 [facility] Screening total cholesterol/ high density lipoprotein (HDL) cholesterol ratioOrdered By: Jose Garzon on 03-30-2025 Cholesterol.total/Choles terol in HDL [Mass ratio] 3.45 {ratio} [facility] Serum creatinine measurement (mass/volume)Ordered By: Jose Garzon on 03-30-2025 Creatinine [Mass/Vol] 0.67 mg/dL Low 0.70-1.20 [facility] Serum globulin measurementOr dered By: Jose Garzon on 03-30-2025 Globulin (S) [Mass/Vol] 2.3 g/dL 2.2-4.2 [facility] Serum glucose measurement (m ass/volume)Ordered By: Jose Garzon on 03-30-2025 Glucose [Mass/Vol] 113 mg/dL High 70-99 [facility] Serum or plasma alanine patel otransferase (ALT) measurementOrdered By: Jose Garzon on 03-30-2025 ALT [Catalytic activity/Vol] 26 U/L <35 [facility] Serum or plasma albumin teddy urement (mass/volume)Ordered By: Jose Garzon on 03-30-2025 Albumin [Mass/Vol] 4.1 g/dL 3.4-4.8 [facility] Serum or plasma albumin/glob ulin mass ratioOrdered By: Jose Garzon on 03-30-2025 Albumin/Globulin [Mass ratio] 1.8 {ratio} 0.9-2.4 [facility] Serum or plasma alkaline huy sphatase measurementOrdered By: Jose Garzon on 03-30-2025 ALP [Catalytic activity/Vol] 76 U/L 35-104 [facility] Serum or plasma calcium teddy urement (mass/volume)Ordered By: Jose Garzon on 03-30-2025 Calcium [Mass/Vol] 9.7 mg/dL 7.6-11.0 [facility] Serum or plasma cholesterol in HDL measurement (mass/volume)Ordered By: Jose Garzon on 03-30-2025 Cholesterol in HDL [Mass/Vol] 52 mg/dL >40 [facility] Comment on above: National Cholesterol Education Program (NCEP) guidelines:<40 mg/dL: Low HDL-cholesterol (major risk factor for CHD)>= 60 mg/dL: High HDL-cholesterol (negative risk factor for CHD)HDL-cholesterol is affected by a number of factors, e.g. smoking, exercise, hormones, sex and age. Serum or plasma cholesterol measurement (mass/volume)Ordered By: Jose Garzon on 03-30-2025 Cholesterol [Mass/Vol] 178 mg/dL <201 [facility] Comment on above: Cholesterol level, D esirable <200 mg/dLBorderline high cholesterol 200-239 mg/dLHigh cholesterol >=240 mg/dLRecommendations of the NCEP Adult Treatment Panel for the following risk-cutoff thresholds for the [place] population. Serum or plasma ferritin sakina surement (mass/volume)Ordered By: Jose Garzon on 03-30-2025 Ferritin [Mass/Vol] 15 ng/mL Low 22-378 [facility] Serum or plasma iron saturat ion measurement (mass fraction)Ordered By: Jose Garzon on 03-30-2025 Iron saturation [Mass fraction] 9.0 % Low 13-59 [facility] Serum or plasma urea nitroge n measurement (mass/volume)Ordered By: Jose Garzon on 03-30-2025 Urea nitrogen [Mass/Vol] 14 mg/dL 4-19 [facility] Sodium levelOrdered By: Jose Garzon on 03-30-2025 Sodium [Moles/Vol] 140 mmol/L 133-145 [facility] Total proteinOrdered By: Jcarlos Garzon on 03-30-2025 Protein [Mass/Vol] 6.4 g/dL 5.9-8.4 [facility] Triglycerides measurementOrd ered By: Jose Garzon on 03-30-2025 Triglyceride [Mass/Vol] 101 mg/dL <199 [facility] Comment on above: The drugs N-Acetylcy steine and Metamizole may falsely depress this assay. Normal range: <150 mg/dLBorderline High: 150-199 mg/dLHigh: 200-499 mg/dLVery High: >500 mg/dL Urine albumin measurement wi detection limit of 20 mg/L or less (mass/volume)Ordered By: Jose Garzon on 03-30-2025 Albumin DL <= 20 mg/L (U) [Mass/Vol] < 12.0 mg/L NO RANGE EST. [facility] Vitamin B12 ser/plasOrdered By: Jose Garzon on 03-30-2025 Cobalamin (Vitamin B12) [Mass/Vol] 463 pg/mL 180-914 [facility] Vitamin D,25 Hydroxyon 03-30 Vitamin D 25-OH 38.5 ng/mL Normal 30-100 [facility] Comment on above: Order Comment: Order Date: 03/30/25Order Info: [id number] - CMPOrder Info: [id number] - LIPID Result Comment: Daria min D StatusDeficiency: <20 ng/mL (50nmol/L)Insufficiency: 20-30 ng/mL (50-75 nmol/L)Sufficiency: 30-100 ng/mL (75-250 nmol/L)Toxicity: >100 ng/mL (>250 nmol/L) Performed By: #### L 503.6550, L506.1001, L503.0106, L502.0250, L503.6030 ####[facility] [address] [place], [address] White blood cell (WBC) count Ordered By: Jose Garzon on 03-30-2025 WBC (Bld) [#/Vol] 9.9 10*3/uL 4.4-11.0 [facility] Radiation Oncology Visiton 0 02-22-2025 Radiation Oncology Visit Normal [facility] Surgery Visit Reporton 02-08 Surgery Visit Report Normal [facility] Absolute lymphocyte countOrd ered By: Izzy Ferreira on 12-30-2024 Lymphocytes Auto (Unsp spec) [#/Vol] 1.33 10*3/uL 0.83-4.51 [facility] Absolute neutrophil countOrd ered By: Izzy Ferreira on 12-30-2024 Neutrophils (Bld) [#/Vol] 5.5 10*3/uL 2.0-7.7 [facility] Anion gap in Serum or Plasma Ordered By: Izzy Ferreira on 12-30-2024 Anion gap [Moles/Vol] 11 mmol/L 5-15 [facility] Automated lymphocyte count a s percentage of total leukocytesOrdered By: Izzy Ferreira on 12-30-2024 Lymphocytes/100 WBC Auto (Unsp spec) 17.8 % Low 19-41 [facility] BUN/creatinine ratioOrdered By: Izzy Ferreira on 12-30-2024 Urea nitrogen/Creatinine [Mass ratio] 19.7 mg/mg 10-20 [facility] Basophil percentageOrdered B y: Izzy Ferreira on 12-30-2024 Basophils/100 WBC (Bld) 0.7 % 0-1 [facility] Bilirubin, totalOrdered By: Izzy Ferreira on 12-30-2024 Bilirubin [Mass/Vol] 0.21 mg/dL 0.00-1.30 [facility] CBC W/Diff, Automatedon 12-18 Absolute Lymph 1.33 X10 3/uL Normal 0.83-4.51 [facility] Comment on above: Performed By: #### L 500.4050, L100.0100 ####[facility] [address] [place], [address] Absolute Neut 5.5 X10 3/uL Normal 2.0-7.7 [facility] Comment on above: Performed By: #### L 500.4050, L100.0100 ####[facility] [address] [place], [address] Basophils/100 WBC (Bld) 0.7 % Normal 0-1 [facility] Comment on above: Performed By: #### L 500.4050, L100.0100 ####[facility] [address] [place], [address] Eosinophils/100 WBC (Bld) 2.0 % Normal 0-5 [facility] Comment on above: Performed By: #### L 500.4050, L100.0100 ####[facility] [address] [place], [address] Erythrocyte distribution width (RBC) [Ratio] 15.3 % High 11.6-14.6 [facility] Comment on above: Performed By: #### L 500.4050, L100.0100 ####[facility] [address] [place], [address] Hematocrit (Bld) [Volume fraction] 36.8 % Low 37-47 [facility] Comment on above: Performed By: #### L 500.4050, L100.0100 ####[facility] [address] [place], [address] Hemoglobin (Bld) [Mass/Vol] 12.2 g/dL Normal 12.0-15.0 [facility] Comment on above: Performed By: #### L 500.4050, L100.0100 ####[facility] [address] [place], [address] IG% 0.300 Normal 0.0-0.9 [facility] Comment on above: Result Comment: IG% - Immature Granulocytes (promyelocytes, myelocytes andmetamyelocytes) > 1% indicates that a LEFT SHIFT is Present. Performed By: #### L 500.4050, L100.0100 ####[facility] [address] [place], [address] Lymphocytes/100 WBC (Bld) 17.8 % Low 19-41 [facility] Comment on above: Performed By: #### L 500.4050, L100.0100 ####[facility] [address] [place], [address] MCH (RBC) [Entitic mass] 29.3 pg Normal 27.0-32.0 [facility] Comment on above: Performed By: #### L 500.4050, L100.0100 ####[facility] [address] [place], [address] MCHC (RBC) [Mass/Vol] 33.2 g/dL Normal 32-36 [facility] Comment on above: Performed By: #### L 500.4050, L100.0100 ####[facility] [address] [place], [address] MCV (RBC) [Entitic vol] 88.5 fL Normal 81-99 [facility] Comment on above: Performed By: #### L 500.4050, L100.0100 ####[facility] [address] [place], [address] Monocytes/100 WBC (Bld) 6.0 % Normal 0-10 [facility] Comment on above: Performed By: #### L 500.4050, L100.0100 ####[facility] [address] [place], [address] Neutrophils/100 WBC (Bld) 73.2 % High 47-70 [facility] Comment on above: Performed By: #### L 500.4050, L100.0100 ####[facility] [address] [place], [address] Nucleated RBC (Bld) [#/Vol] 0 10*3/uL Normal 0-5 [facility] Comment on above: Performed By: #### L 500.4050, L100.0100 ####[facility] [address] [place], [address] Platelet mean volume (Bld) [Entitic vol] 9.7 fL Normal 6.2-12.0 [facility] Comment on above: Performed By: #### L 500.4050, L100.0100 ####[facility] [address] [place], [address] Platelets (Bld) [#/Vol] 327 10*3/uL Normal 150-450 [facility] Comment on above: Performed By: #### L 500.4050, L100.0100 ####[facility] [address] [place], [address] RBC (Bld) [#/Vol] 4.16 10*6/uL Low 4.2-5.4 [facility] Comment on above: Performed By: #### L 500.4050, L100.0100 ####[facility] [address] [place], [address] RDW SD 50.0 fl High 35.1-43.9 [facility] Comment on above: Performed By: #### L 500.4050, L100.0100 ####[facility] [address] [place], [address] WBC (Bld) [#/Vol] 7.5 10*3/uL Normal 4.4-11.0 [facility] Comment on above: Performed By: #### L 500.4050, L100.0100 ####[facility] [address] [place], [address] Carbon dioxide, total [Moles /volume] in Central venous bloodOrdered By: Izzy Ferreira on 12-30-2024 CO2 [Moles/Vol] 23.4 mmol/L 21.0-32.0 [facility] Chloride assayOrdered By: Elkin Ferreira on 12-30-2024 Chloride [Moles/Vol] 104 mmol/L 98-108 [facility] Comprehensive Metabolic Prof ilon 12-30-2024 Albumin [Mass/Vol] 4.2 g/dL Normal 3.4-4.8 [facility] Comment on above: Performed By: #### L 500.4050, L100.0100 ####[facility] [address] [place], [address] Albumin/Globulin [Mass ratio] 1.8 {ratio} Normal 0.9-2.4 [facility] Comment on above: Performed By: #### L 500.4050, L100.0100 ####[facility] [address] [place], [address] ALK PHOS 71 U/L Normal 35-104 [facility] Comment on above: Performed By: #### L 500.4050, L100.0100 ####[facility] [address] [place], [address] ALT [Catalytic activity/Vol] 22 U/L Normal <=34 [facility] Comment on above: Performed By: #### L 500.4050, L100.0100 ####[facility] [address] [place], [address] AST [Catalytic activity/Vol] 23 U/L Normal <=31 [facility] Comment on above: Performed By: #### L 500.4050, L100.0100 ####[facility] [address] [place], [address] Bilirubin [Mass/Vol] 0.21 mg/dL Normal 0.00-1.30 [facility] Comment on above: Performed By: #### L 500.4050, L100.0100 ####[facility] [address] [place], [address] BUN/CRE 19.7 RATIO Normal 10-20 [facility] Comment on above: Performed By: #### L 500.4050, L100.0100 ####[facility] [address] [place], [address] Calcium [Mass/Vol] 9.7 mg/dL Normal 7.6-11.0 [facility] Comment on above: Performed By: #### L 500.4050, L100.0100 ####[facility] [address] [place], [address] Chloride [Moles/Vol] 104 mmol/L Normal 98-108 [facility] Comment on above: Performed By: #### L 500.4050, L100.0100 ####[facility] [address] [place], [address] CO2 [Moles/Vol] 23.4 mmol/L Normal 21.0-32.0 [facility] Comment on above: Performed By: #### L 500.4050, L100.0100 ####[facility] [address] [place], [address] Creatinine [Mass/Vol] 0.59 mg/dL Low 0.70-1.20 [facility] Comment on above: Performed By: #### L 500.4050, L100.0100 ####[facility] [address] [place], [address] ECRCL 58.62 ml/min Normal 50-250 [facility] Comment on above: Performed By: #### L 500.4050, L100.0100 ####[facility] [address] [place], [address] GAP 11 Normal 5-15 [facility] Comment on above: Performed By: #### L 500.4050, L100.0100 ####[facility] [address] [place], [address] GFR/1.73 sq M.predicted among non-blacks MDRD (S/P/Bld) [Vol rate/Area] 98 mL/min/{1.73_m2} Normal >60 [facility] Comment on above: Result Comment: mL/m in/1.73m2 CKD-EPI Creatinine Equation (2020) Performed By: #### L 500.4050, L100.0100 ####[facility] [address] [place], [address] Globulin (S) [Mass/Vol] 2.4 g/dL Normal 2.2-4.2 [facility] Comment on above: Performed By: #### L 500.4050, L100.0100 ####[facility] [address] [place], [address] Glucose [Mass/Vol] 107 mg/dL High 70-99 [facility] Comment on above: Performed By: #### L 500.4050, L100.0100 ####[facility] [address] [place], [address] Potassium [Moles/Vol] 3.9 mmol/L Normal 3.3-5.1 [facility] Comment on above: Performed By: #### L 500.4050, L100.0100 ####[facility] [address] [place], [address] Sodium [Moles/Vol] 139 mmol/L Normal 133-145 [facility] Comment on above: Performed By: #### L 500.4050, L100.0100 ####[facility] [address] [place], [address] T PROT 6.6 g/dL Normal 5.9-8.4 [facility] Comment on above: Performed By: #### L 500.4050, L100.0100 ####[facility] [address] [place], [address] Urea nitrogen [Mass/Vol] 12 mg/dL Normal 4-19 [facility] Comment on above: Performed By: #### L 500.4050, L100.0100 ####[facility] [address] [place], [place], [id number] Eosinophil percentageOrdered By: Izzy Ferreira on 12-30-2024 Eosinophils/100 WBC (Bld) 2.0 % 0-5 [facility] Erythrocyte distribution wid th ratioOrdered By: [facility] Erythrocyte distribution width (RBC) [Ratio] 15.3 % High 11.6-14.6 [facility] Erythrocyte distribution wid th standard deviationOrdered By: [facility] on 12-30-2024 Erythrocyte distribution width (RBC) [Ratio] 50.0 fl High 35.1-43.9 [facility] Glomerular filtration rate ( GFR) estimation/1.73 sq m using serum, plasma, or whole bOrdered By: Izzy Ferreira on 12-30-2024 GFR/1.73 sq M.predicted among non-blacks MDRD (S/P/Bld) [Vol rate/Area] 98 mL/min/{1.73_m2} >60 [facility] Comment on above: mL/min/1.73m2 CKD-EP I Creatinine Equation (2020) Hematocrit Auto (Bld) [Volum e fraction]Ordered By: Izzy Hanna on 12-30-2024 Hematocrit (Bld) [Volume fraction] 36.8 % Low 37-47 [facility] Hemoglobin measurementOrdere d By: Izzy Ferreira on 12-30-2024 Hemoglobin (Bld) [Mass/Vol] 12.2 g/dL 12.0-15.0 [facility] Immature granulocytes/100 WB C Auto (Bld)Ordered By: Izzy Ferreira on 12-30-2024 Immature granulocytes/100 WBC (Bld) 0.300 % 0.0-0.9 [facility] Comment on above: IG% - Immature Granu locytes (promyelocytes, myelocytes and metamyelocytes) > 1% indicates that a LEFT SHIFT is Present. Laboratory - Chemistry and C hemistry - challengeOrdered By: Izzy Ferreira on 12-30-2024 AST [Catalytic activity/Vol] 23 U/L <32 [facility] MCV (mean corpuscular volume ) determinationOrdered By: Izzy Ferreira on 12-30-2024 MCV (RBC) [Entitic vol] 88.5 fL 81-99 [facility] Mean corpuscular hemoglobin (MCH) determinationOrdered By: Izzy Ferreira on 12-30-2024 MCH (RBC) [Entitic mass] 29.3 pg 27.0-32.0 [facility] Mean corpuscular hemoglobin concentration (MCHC) determinationOrdered By: Izzy Ferreira on 12-30-2024 MCHC (RBC) [Mass/Vol] 33.2 g/dL 32-36 [facility] Mean platelet volume determi nationOrdered By: Izzy Ferreira on 12-30-2024 Platelet mean volume (Bld) [Entitic vol] 9.7 fL 6.2-12.0 [facility] Monocyte percentageOrdered B y: Izzy Ferreira on 12-30-2024 Monocytes/100 WBC (Bld) 6.0 % 0-10 [facility] Neutrophil percentageOrdered By: Izzy Ferreira on 12-30-2024 Neutrophils/100 WBC (Bld) 73.2 % High 47-70 [facility] Nucleated red blood cell per centageOrdered By: Izzy Ferreira on 12-30-2024 Nucleated RBC/100 WBC (Bld) [Ratio] 0 % 0-5 [facility] Oncology Visit Reporton 12-18 Oncology Visit Report Normal [facility] Platelet countOrdered By: Elkin Ferreira on 12-30-2024 Platelets (Bld) [#/Vol] 327 10*3/uL 150-450 [facility] Potassium measurement (mass/ volume)Ordered By: Izzy Ferreira on 12-30-2024 Potassium (Unsp spec) [Mass/Vol] 3.9 mmol/L 3.3-5.1 [facility] RBC Auto (Bld) [#/Vol]Ordere d By: Izzy Ferreira on 12-30-2024 RBC (Bld) [#/Vol] 4.16 10*6/uL Low 4.2-5.4 [facility] Serum creatinine measurement (mass/volume)Ordered By: Izzy Ferreira on 12-30-2024 Creatinine [Mass/Vol] 0.59 mg/dL Low 0.70-1.20 [facility] Serum globulin measurementOr dered By: Izzy Ferreira on 12-30-2024 Globulin (S) [Mass/Vol] 2.4 g/dL 2.2-4.2 [facility] Serum glucose measurement (m ass/volume)Ordered By: Izzy Ferreira on 12-30-2024 Glucose [Mass/Vol] 107 mg/dL High 70-99 [facility] Serum or plasma alanine patel otransferase (ALT) measurementOrdered By: Izzy Fererira on 12-30-2024 ALT [Catalytic activity/Vol] 22 U/L <35 [facility] Serum or plasma albumin teddy urement (mass/volume)Ordered By: Izzy Ferreira on 12-30-2024 Albumin [Mass/Vol] 4.2 g/dL 3.4-4.8 [facility] Serum or plasma albumin/glob ulin mass ratioOrdered By: Izzy Ferreira on 12-30-2024 Albumin/Globulin [Mass ratio] 1.8 {ratio} 0.9-2.4 [facility] Serum or plasma alkaline huy sphatase measurementOrdered By: Izzy Ferreira on 12-30-2024 ALP [Catalytic activity/Vol] 71 U/L 35-104 [facility] Serum or plasma calcium teddy urement (mass/volume)Ordered By: Izzy Ferreira on 12-30-2024 Calcium [Mass/Vol] 9.7 mg/dL 7.6-11.0 [facility] Serum or plasma urea nitroge n measurement (mass/volume)Ordered By: Izzy Ferreira 12-30-2024 Urea nitrogen [Mass/Vol] 12 mg/dL 4-19 [facility] Sodium levelOrdered By: Izzy Ferreira on 12-30-2024 Sodium [Moles/Vol] 139 mmol/L 133-145 [facility] Total proteinOrdered By: Constantine Ferreira on 12-30-2024 Protein [Mass/Vol] 6.6 g/dL 5.9-8.4 [facility] White blood cell (WBC) count Ordered By: Izzy Ferreira on 12-30-2024 WBC (Bld) [#/Vol] 7.5 10*3/uL 4.4-11.0 [facility] Office Visit Reporton 2024 Office Visit Report Normal [facility] Radiation Oncology Visiton 0 10-26-2024 Radiation Oncology Visit Normal [facility] Pulmonary Visit Reporton Pulmonary Visit Report Normal [facility] Ferritinon 10-08-2024 Ferritin [Mass/Vol] 10 ng/mL Normal 8-252 [facility] Comment on above: Order Comment: GRACIA Gomez ADD A1C B12 WAQAR IBC TO BLOOD DRAWN 10/07/24Order Date: 10/07/24Order Info: [id number] - CMPOrder Info: [id number] - LIPIDOrder Info: [id number] - MGOrder Info: [id number] - TSH Performed By: #### L 501.9985, L503.6030, L400.0001, L503.0105, L503.6550 ####[facility] [address] [place], [place], [id number] Hemoglobin A1con 10-08-2024 HbA1c (Bld) [Mass fraction] 5.8 % High 3.8-5.6 [facility] Comment on above: Order Comment: GRACIA Gomez ADD A1C B12 WAQAR IBC TO BLOOD DRAWN 10/07/24 Result Comment: Norm al < 5.7 % Prediabetic 5.7 - 6.4 % Diabetic >or= 6.5 % Please note range changes. Performed By: #### L 501.9985, L503.6030, L400.0001, L503.0105, L503.6550 ####[facility] [address] [place], [place], [id number] Iron+Iron Binding Capacityon 10-08-2024 Iron [Mass/Vol] 126 ug/dL Normal 50-170 [facility] Comment on above: Order Comment: GRACIA Gomez ADD A1C B12 WAQAR IBC TO BLOOD DRAWN 10/07/24Order Date: 10/07/24Order Info: [id number] - CMPOrder Info: - LIPIDOrder Info: - MGOrder Info: [id number] - TSH Performed By: #### L 501.9985, L503.6030, L400.0001, L503.0105, L503.6550 ####[facility] [address] [place], [address] IRON SATURATION 31.7 Normal 15.0-55.0 [facility] Comment on above: Order Comment: GRACIA Gomez ADD A1C B12 WAQAR IBC TO BLOOD DRAWN 10/07/24Order Date: 10/07/24Order Info: [id number] - CMPOrder Info: - LIPIDOrder Info: - MGOrder Info: [id number] - TSH Performed By: #### L 501.9985, L503.6030, L400.0001, L503.0105, L503.6550 ####[facility] [address] [place], [address] TIBC 398 ug/dL Normal 250-450 [facility] Comment on above: Order Comment: GRACIA Gomez ADD A1C B12 WAQAR IBC TO BLOOD DRAWN 10/07/24Order Date: 10/07/24Order Info: [id number] - CMPOrder Info: - LIPIDOrder Info: - MGOrder Info: [id number] - TSH Performed By: #### L 501.9985, L503.6030, L400.0001, L503.0105, L503.6550 ####[facility] [address] [place], [address] Vitamin B12on 10-08-2024 Cobalamin (Vitamin B12) [Mass/Vol] 433 pg/mL Normal 211-911 [facility] Comment on above: Order Comment: GRACIA Gomez ADD A1C B12 WAQAR IBC TO BLOOD DRAWN 10/07/24Order Date: 10/07/24Order Info: [id number] - VITD25 Performed By: #### L 501.9985, L503.6030, L400.0001, L503.0105, L503.6550 ####[facility] [address] [place], [address] CBC W/Diff, Automatedon 09-19 Absolute Lymph 1.24 X10 3/uL Normal 0.83-4.51 [facility] Comment on above: Order Comment: Order Date: 10/07/24Order Info: [id number]- - CBCD Performed By: #### L 500.4050, L100.0100, L506.1000, L501.9520, L501.5200, L500.4100 ####[facility] [address] [place], [address] Absolute Neut 4.8 X10 3/uL Normal 2.0-7.7 [facility] Comment on above: Order Comment: Order Date: 10/07/24Order Info: 018- - CBCD Performed By: #### L 500.4050, L100.0100, L506.1000, L501.9520, L501.5200, L500.4100 ####[facility] [address] [place], [address] Basophils/100 WBC (Bld) 0.9 % Normal 0-1 [facility] Comment on above: Order Comment: Order Date: 10/07/24Order Info: 018- - CBCD Performed By: #### L 500.4050, L100.0100, L506.1000, L501.9520, L501.5200, L500.4100 ####[facility] [address] [place], [address] Eosinophils/100 WBC (Bld) 1.5 % Normal 0-5 [facility] Comment on above: Order Comment: Order Date: 10/07/24Order Info: 018- - CBCD Performed By: #### L 500.4050, L100.0100, L506.1000, L501.9520, L501.5200, L500.4100 ####[facility] [address] [place], [address] Erythrocyte distribution width (RBC) [Ratio] 16.5 % High 11.6-14.6 [facility] Comment on above: Order Comment: Order Date: 10/07/24Order Info: 018- - CBCD Performed By: #### L 500.4050, L100.0100, L506.1000, L501.9520, L501.5200, L500.4100 ####[facility] [address] [place], [address] Hematocrit (Bld) [Volume fraction] 36.9 % Low 37-47 [facility] Comment on above: Order Comment: Order Date: 10/07/24Order Info: 018- - CBCD Performed By: #### L 500.4050, L100.0100, L506.1000, L501.9520, L501.5200, L500.4100 ####[facility] [address] [place], [address] Hemoglobin (Bld) [Mass/Vol] 11.7 g/dL Low 12.0-15.0 [facility] Comment on above: Order Comment: Order Date: 10/07/24Order Info: 018- - CBCD Performed By: #### L 500.4050, L100.0100, L506.1000, L501.9520, L501.5200, L500.4100 ####[facility] [address] [place], [address] IG% 0.400 Normal 0.0-0.9 [facility] Comment on above: Order Comment: Order Date: 10/07/24Order Info: 018- - CBCD Result Comment: IG% - Immature Granulocytes (promyelocytes, myelocytes andmetamyelocytes) > 1% indicates that a LEFT SHIFT is Present. Performed By: #### L 500.4050, L100.0100, L506.1000, L501.9520, L501.5200, L500.4100 ####[facility] [address] [place], [address] Lymphocytes/100 WBC (Bld) 18.6 % Low 19-41 [facility] Comment on above: Order Comment: Order Date: 10/07/24Order Info: 183- - CBCD Performed By: #### L 500.4050, L100.0100, L506.1000, L501.9520, L501.5200, L500.4100 ####[facility] [address] [place], [address] MCH (RBC) [Entitic mass] 28.2 pg Normal 27.0-32.0 [facility] Comment on above: Order Comment: Order Date: 10/07/24Order Info: 183- - CBCD Performed By: #### L 500.4050, L100.0100, L506.1000, L501.9520, L501.5200, L500.4100 ####[facility] [address] [place], [address] MCHC (RBC) [Mass/Vol] 31.7 g/dL Low 32-36 [facility] Comment on above: Order Comment: Order Date: 10/07/24Order Info: 183- - CBCD Performed By: #### L 500.4050, L100.0100, L506.1000, L501.9520, L501.5200, L500.4100 ####[facility] [address] [place], [address] MCV (RBC) [Entitic vol] 88.9 fL Normal 81-99 [facility] Comment on above: Order Comment: Order Date: 10/07/24Order Info: 183- - CBCD Performed By: #### L 500.4050, L100.0100, L506.1000, L501.9520, L501.5200, L500.4100 ####[facility] [address] [place], [address] Monocytes/100 WBC (Bld) 7.0 % Normal 0-10 [facility] Comment on above: Order Comment: Order Date: 10/07/24Order Info: 183- - CBCD Performed By: #### L 500.4050, L100.0100, L506.1000, L501.9520, L501.5200, L500.4100 ####[facility] [address] [place], [address] Neutrophils/100 WBC (Bld) 71.6 % High 47-70 [facility] Comment on above: Order Comment: Order Date: 10/07/24Order Info: 018- - CBCD Performed By: #### L 500.4050, L100.0100, L506.1000, L501.9520, L501.5200, L500.4100 ####[facility] [address] [place], [address] Nucleated RBC (Bld) [#/Vol] 0 10*3/uL Normal 0-5 [facility] Comment on above: Order Comment: Order Date: 10/07/24Order Info: 018- - CBCD Performed By: #### L 500.4050, L100.0100, L506.1000, L501.9520, L501.5200, L500.4100 ####[facility] [address] [place], [address] Platelet mean volume (Bld) [Entitic vol] 10.0 fL Normal 6.2-12.0 [facility] Comment on above: Order Comment: Order Date: 10/07/24Order Info: 018- - CBCD Performed By: #### L 500.4050, L100.0100, L506.1000, L501.9520, L501.5200, L500.4100 ####[facility] [address] [place], [address] Platelets (Bld) [#/Vol] 320 10*3/uL Normal 150-450 [facility] Comment on above: Order Comment: Order Date: 10/07/24Order Info: [id number] - CBCD Performed By: #### L 500.4050, L100.0100, L506.1000, L501.9520, L501.5200, L500.4100 ####[facility] [address] [place], [address] RBC (Bld) [#/Vol] 4.15 10*6/uL Low 4.2-5.4 [facility] Comment on above: Order Comment: Order Date: 10/07/24Order Info: 018- - CBCD Performed By: #### L 500.4050, L100.0100, L506.1000, L501.9520, L501.5200, L500.4100 ####[facility] [address] [place], [address] RDW SD 53.6 fl High 35.1-43.9 [facility] Comment on above: Order Comment: Order Date: 10/07/24Order Info: 018- - CBCD Performed By: #### L 500.4050, L100.0100, L506.1000, L501.9520, L501.5200, L500.4100 ####[facility] [address] [place], [address] WBC (Bld) [#/Vol] 6.7 10*3/uL Normal 4.4-11.0 [facility] Comment on above: Order Comment: Order Date: 10/07/24Order Info: [id number] - CBCD Performed By: #### L 500.4050, L100.0100, L506.1000, L501.9520, L501.5200, L500.4100 ####[facility] [address] [place], [address] Comprehensive Metabolic Prof ilon 10-07-2024 Albumin [Mass/Vol] 3.7 g/dL Normal 3.2-5.0 [facility] Comment on above: Order Comment: Order Date: 10/07/24Order Info: [id number] - CMPOrder Info: [id number] - LIPIDOrder Info: [id number] - MGOrder Info: [id number] - TSH Performed By: #### L 500.4050, L100.0100, L506.1000, L501.9520, L501.5200, L500.4100 ####[facility] [address] [place], [address] Albumin/Globulin [Mass ratio] 1.3 {ratio} Normal 0.9-2.4 [facility] Comment on above: Order Comment: Order Date: 10/07/24Order Info: [id number] - CMPOrder Info: [id number] - LIPIDOrder Info: [id number] - MGOrder Info: [id number] - TSH Performed By: #### L 500.4050, L100.0100, L506.1000, L501.9520, L501.5200, L500.4100 ####[facility] [address] [place], [address] ALK P 72 U/L Normal 45-117 [facility] Comment on above: Order Comment: Order Date: 10/07/24Order Info: [id number] - CMPOrder Info: [id number] - LIPIDOrder Info: [id number] - MGOrder Info: [id number] - TSH Performed By: #### L 500.4050, L100.0100, L506.1000, L501.9520, L501.5200, L500.4100 ####[facility] [address] [place], [address] ALT [Catalytic activity/Vol] 23 U/L Normal 13-56 [facility] Comment on above: Order Comment: Order Date: 10/07/24Order Info: [id number] - CMPOrder Info: [id number] - LIPIDOrder Info: [id number] - MGOrder Info: [id number] - TSH Performed By: #### L 500.4050, L100.0100, L506.1000, L501.9520, L501.5200, L500.4100 ####[facility] [address] [place], [address] AST [Catalytic activity/Vol] 15 U/L Normal 15-37 [facility] Comment on above: Order Comment: Order Date: 10/07/24Order Info: 86-1 - CMPOrder Info: [id number] - LIPIDOrder Info: [id number] - MGOrder Info: [id number] - TSH Performed By: #### L 500.4050, L100.0100, L506.1000, L501.9520, L501.5200, L500.4100 ####[facility] [address] [place], [address] Bilirubin [Mass/Vol] 0.30 mg/dL Normal 0.20-1.00 [facility] Comment on above: Order Comment: Order Date: 10/07/24Order Info: 785- - CMPOrder Info: [id number] - LIPIDOrder Info: [id number] - MGOrder Info: [id number] - TSH Result Comment: For patients on eltrombopag therapy, use of Dimension Marble TBIL is not recommended. Performed By: #### L 500.4050, L100.0100, L506.1000, L501.9520, L501.5200, L500.4100 ####[facility] [address] [place], [address] BUN/CRE 23.5 RATIO High 10-20 [facility] Comment on above: Order Comment: Order Date: 10/07/24Order Info: [id number] - CMPOrder Info: [id number] - LIPIDOrder Info: [id number] - MGOrder Info: [id number] - TSH Performed By: #### L 500.4050, L100.0100, L506.1000, L501.9520, L501.5200, L500.4100 ####[facility] [address] [place], [address] CA,Total 9.6 mg/dL Normal 8.5-10.1 [facility] Comment on above: Order Comment: Order Date: 10/07/24Order Info: 86-1 - CMPOrder Info: [id number] - LIPIDOrder Info: [id number] - MGOrder Info: [id number] - TSH Performed By: #### L 500.4050, L100.0100, L506.1000, L501.9520, L501.5200, L500.4100 ####[facility] [address] [place], [address] Chloride [Moles/Vol] 105 mmol/L Normal 98-107 [facility] Comment on above: Order Comment: Order Date: 10/07/24Order Info: [id number] - CMPOrder Info: [id number] - LIPIDOrder Info: [id number] - MGOrder Info: [id number] - TSH Performed By: #### L 500.4050, L100.0100, L506.1000, L501.9520, L501.5200, L500.4100 ####[facility] [address] [place], [address] CO2 [Moles/Vol] 27.0 mmol/L Normal 21.0-32.0 [facility] Comment on above: Order Comment: Order Date: 10/07/24Order Info: [id number] - CMPOrder Info: [id number] - LIPIDOrder Info: [id number] - MGOrder Info: [id number] - TSH Performed By: #### L 500.4050, L100.0100, L506.1000, L501.9520, L501.5200, L500.4100 ####[facility] [address] [place], [address] Creatinine [Mass/Vol] 0.64 mg/dL Normal 0.55-1.02 [facility] Comment on above: Order Comment: Order Date: 10/07/24Order Info: [id number] - CMPOrder Info: [id number] - LIPIDOrder Info: [id number] - MGOrder Info: [id number] - TSH Result Comment: The validity of the calculated GFR GFRAA in patients over70 years has not been determined. Clinical correlation isessential. Performed By: #### L 500.4050, L100.0100, L506.1000, L501.9520, L501.5200, L500.4100 ####[facility] [address] [place], [address] EST GFR - AA 119 mL/min Normal >60 [facility] Comment on above: Order Comment: Order Date: 10/07/24Order Info: [id number] - CMPOrder Info: [id number] - LIPIDOrder Info: [id number] - MGOrder Info: [id number] - TSH Result Comment: Afri can [place] GFR Calc Performed By: #### L 500.4050, L100.0100, L506.1000, L501.9520, L501.5200, L500.4100 ####[facility] [address] [place], [address] GAP 6 Normal 5-15 [facility] Comment on above: Order Comment: Order Date: 10/07/24Order Info: [id number] - CMPOrder Info: [id number] - LIPIDOrder Info: [id number] - MGOrder Info: [id number] - TSH Performed By: #### L 500.4050, L100.0100, L506.1000, L501.9520, L501.5200, L500.4100 ####[facility] [address] [place], [place], [address] GFR/1.73 sq M.predicted among non-blacks MDRD (S/P/Bld) [Vol rate/Area] 99 mL/min/{1.73_m2} Normal >60 [facility] Comment on above: Order Comment: Order Date: 10/07/24Order Info: 785- - CMPOrder Info: [id number] - LIPIDOrder Info: [id number] - MGOrder Info: [id number] - TSH Result Comment: Non- GFR Calc Performed By: #### L 500.4050, L100.0100, L506.1000, L501.9520, L501.5200, L500.4100 ####[facility] [address] [place], [address] Globulin (S) [Mass/Vol] 2.8 g/dL Normal 2.2-4.2 [facility] Comment on above: Order Comment: Order Date: 10/07/24Order Info: [id number] - CMPOrder Info: - LIPIDOrder Info: - MGOrder Info: [id number] - TSH Performed By: #### L 500.4050, L100.0100, L506.1000, L501.9520, L501.5200, L500.4100 ####[facility] [address] [place], [address] Glucose [Mass/Vol] 104 mg/dL Normal 74-106 [facility] Comment on above: Order Comment: Order Date: 10/07/24Order Info: [id number] - CMPOrder Info: - LIPIDOrder Info: [id number] - MGOrder Info: [id number] - TSH Result Comment: Fast ing Glucose result from 100 to 125 mg/dLsuggests [employer]OST[employer] per A.D.A. criteria. Performed By: #### L 500.4050, L100.0100, L506.1000, L501.9520, L501.5200, L500.4100 ####[facility] [address] [place], [address] Potassium [Moles/Vol] 4.1 mmol/L Normal 3.5-5.1 [facility] Comment on above: Order Comment: Order Date: 10/07/24Order Info: 785- - CMPOrder Info: [id number] - LIPIDOrder Info: [id number] - MGOrder Info: 6-3 - TSH Performed By: #### L 500.4050, L100.0100, L506.1000, L501.9520, L501.5200, L500.4100 ####[facility] [address] [place], [address] Sodium [Moles/Vol] 138 mmol/L Normal 136-145 [facility] Comment on above: Order Comment: Order Date: 10/07/24Order Info: 86-1 - CMPOrder Info: [id number] - LIPIDOrder Info: [id number] - MGOrder Info: [id number] - TSH Performed By: #### L 500.4050, L100.0100, L506.1000, L501.9520, L501.5200, L500.4100 ####[facility] [address] [place], [place], [id number] T PROT 6.5 g/dL Normal 6.4-8.2 [facility] Comment on above: Order Comment: Order Date: 10/07/24Order Info: 785- - CMPOrder Info: [id number] - LIPIDOrder Info: - MGOrder Info: [id number] - TSH Performed By: #### L 500.4050, L100.0100, L506.1000, L501.9520, L501.5200, L500.4100 ####[facility] [address] [place], [address] Urea nitrogen [Mass/Vol] 15 mg/dL Normal 7-18 [facility] Comment on above: Order Comment: Order Date: 10/07/24Order Info: 86-1 - CMPOrder Info: [id number] - LIPIDOrder Info: [id number] - MGOrder Info: 301-3 - TSH Performed By: #### L 500.4050, L100.0100, L506.1000, L501.9520, L501.5200, L500.4100 ####[facility] [address] [place], [place], [address] Lipid Profileon 10-07-2024 Cholesterol [Mass/Vol] 178 mg/dL Normal 200 [facility] Comment on above: Order Comment: Order Date: 10/07/24Order Info: 785- - CMPOrder Info: [id number] - LIPIDOrder Info: [id number] - MGOrder Info: [id number] - TSH Result Comment: <200 mg/dL Desirable 200-240 mg/dL Borderline >240 mg/dL High Risk Performed By: #### L 500.4050, L100.0100, L506.1000, L501.9520, L501.5200, L500.4100 ####[facility] [address] [place], [place], [address] Cholesterol in HDL [Mass/Vol] 58 mg/dL Normal [facility] Comment on above: Order Comment: Order Date: 10/07/24Order Info: [id number] - CMPOrder Info: - LIPIDOrder Info: - MGOrder Info: [id number] - TSH Result Comment: The drugs N-Acetylcysteine and Metamizole may falselydepress this assay. Reference Range HDL <40 mg/dL Low HDL Cholesterol HDL >or= 60 mg/dL High HDL Cholesterol Performed By: #### L 500.4050, L100.0100, L506.1000, L501.9520, L501.5200, L500.4100 ####[facility] [address] [place], [address] Cholesterol in LDL [Mass/Vol] 93 mg/dL Normal 0-130 [facility] Comment on above: Order Comment: Order Date: 10/07/24Order Info: [id number] - CMPOrder Info: - LIPIDOrder Info: [id number] - MGOrder Info: [id number] - TSH Performed By: #### L 500.4050, L100.0100, L506.1000, L501.9520, L501.5200, L500.4100 ####[facility] [address] [place], [address] Cholesterol in VLDL [Mass/Vol] 27 mg/dL Normal 5-40 [facility] Comment on above: Order Comment: Order Date: 10/07/24Order Info: 86-1 - CMPOrder Info: [id number] - LIPIDOrder Info: [id number] - MGOrder Info: [id number] - TSH Performed By: #### L 500.4050, L100.0100, L506.1000, L501.9520, L501.5200, L500.4100 ####[facility] [address] [place], [address] Triglyceride [Mass/Vol] 134 mg/dL Normal [facility] Comment on above: Order Comment: Order Date: 10/07/24Order Info: 785- - CMPOrder Info: - LIPIDOrder Info: - MGOrder Info: [id number] - TSH Result Comment: The drugs N-Acetylcysteine and Metamizole may falselydepress this assay.Serum Triglycerides Reference Interval Normal <150 mg/dL Borderline high 150 - 199 mg/dL High 200 - 499 mg/dL Very High > or = 500 mg/dL Performed By: #### L 500.4050, L100.0100, L506.1000, L501.9520, L501.5200, L500.4100 ####[facility] [address] [place], [address] Magnesiumon 10-07-2024 Magnesium [Mass/Vol] 2.0 mg/dL Normal 1.6-2.6 [facility] Comment on above: Order Comment: Order Date: 10/07/24Order Info: [id number] - CMPOrder Info: - LIPIDOrder Info: - MGOrder Info: 6-3 - TSH Performed By: #### L 500.4050, L100.0100, L506.1000, L501.9520, L501.5200, L500.4100 ####[facility] [address] [place], [address] Thyroid Stim Hormone (TSH)on 10-07-2024 TSH 1.000 uIU/mL Normal 0.358-3.74 0 [facility] Comment on above: Order Comment: Order Date: 10/07/24Order Info: [id number] - CMPOrder Info: [id number] - LIPIDOrder Info: [id number] - MGOrder Info: [id number] - TSH Performed By: #### L 500.4050, L100.0100, L506.1000, L501.9520, L501.5200, L500.4100 ####[facility] [address] [place], [address] Urinalysis, Completeon 10-07 WBC 0-5 SEEN Normal 0-5 [facility] Comment on above: Order Comment: CLEAN CATCH Performed By: #### L 501.9985, L503.6030, L400.0001, L503.0105, L503.6550 ####[facility] [address] [place], [address] EPI,SQUAMOUS 0-5 SEEN Normal 5-10 [facility] Comment on above: Order Comment: CLEAN CATCH Performed By: #### L 501.9985, L503.6030, L400.0001, L503.0105, L503.6550 ####[facility] [address] [place], [address] BACTERIA 0 SEEN Normal None Seen [facility] Comment on above: Order Comment: CLEAN CATCH Performed By: #### L 501.9985, L503.6030, L400.0001, L503.0105, L503.6550 ####[facility] [address] [place], [address] Mucus Ql (Urine sed) 0 SEEN Normal [facility] Comment on above: Order Comment: CLEAN CATCH Performed By: #### L 501.9985, L503.6030, L400.0001, L503.0105, L503.6550 ####[facility] [address] [place], [address] RBC 0 SEEN Normal 0-5 [facility] Comment on above: Order Comment: CLEAN CATCH Performed By: #### L 501.9985, L503.6030, L400.0001, L503.0105, L503.6550 ####[facility] [address] [place], [address] Vitamin D,25 Hydroxyon 10-07 Vitamin D 25-OH 38.5 ng/mL Normal [facility] Comment on above: Order Comment: Order Date: 10/07/24Order Info: [id number] - VITD25 Result Comment: Daria min D 25(OH) Status Range Deficiency <20 ng/mL (50nmol/L) Insufficiency 20 - 30 ng/mL (50 - 75 nmol/L) Sufficiency 30 - 100 ng/mL (75 - 250 nmol/L) Toxicity >100 ng/mL (>250 nmol/L) Performed By: #### L 500.4050, L100.0100, L506.1000, L501.9520, L501.5200, L500.4100 ####[facility] [address] [place], [address] CBC W/Diff, Automatedon 11-0 Absolute Lymph 1.31 X10 3/uL Normal 0.83-4.51 [facility] Comment on above: Performed By: #### L 503.6550, L503.6030, L100.9950, L100.0100 ####[facility] [address] [place], [address] Absolute Neut 4.6 X10 3/uL Normal 2.0-7.7 [facility] Comment on above: Performed By: #### L 503.6550, L503.6030, L100.9950, L100.0100 ####[facility] [address] [place], [address] Basophils/100 WBC (Bld) 0.6 % Normal 0-1 [facility] Comment on above: Performed By: #### L 503.6550, L503.6030, L100.9950, L100.0100 ####[facility] [address] [place], [address] Eosinophils/100 WBC (Bld) 1.4 % Normal 0-5 [facility] Comment on above: Performed By: #### L 503.6550, L503.6030, L100.9950, L100.0100 ####[facility] [address] [place], [address] Erythrocyte distribution width (RBC) [Ratio] 16.6 % High 11.6-14.6 [facility] Comment on above: Performed By: #### L 503.6550, L503.6030, L100.9950, L100.0100 ####[facility] [address] [place], [address] Hematocrit (Bld) [Volume fraction] 37.5 % Normal 37-47 [facility] Comment on above: Performed By: #### L 503.6550, L503.6030, L100.9950, L100.0100 ####[facility] [address] [place], [address] Hemoglobin (Bld) [Mass/Vol] 12.0 g/dL Normal 12.0-15.0 [facility] Comment on above: Performed By: #### L 503.6550, L503.6030, L100.9950, L100.0100 ####[facility] [address] [place], [address] IG% 0.300 Normal 0.0-0.9 [facility] Comment on above: Result Comment: IG% - Immature Granulocytes (promyelocytes, myelocytes andmetamyelocytes) > 1% indicates that a LEFT SHIFT is Present. Performed By: #### L 503.6550, L503.6030, L100.9950, L100.0100 ####[facility] [address] [place], [address] Lymphocytes/100 WBC (Bld) 19.8 % Normal 19-41 [facility] Comment on above: Performed By: #### L 503.6550, L503.6030, L100.9950, L100.0100 ####[facility] [address] [place], [address] MCH (RBC) [Entitic mass] 27.9 pg Normal 27.0-32.0 [facility] Comment on above: Performed By: #### L 503.6550, L503.6030, L100.9950, L100.0100 ####[facility] [address] [place], [address] MCHC (RBC) [Mass/Vol] 32.0 g/dL Normal 32-36 [facility] Comment on above: Performed By: #### L 503.6550, L503.6030, L100.9950, L100.0100 ####[facility] [address] [place], [address] MCV (RBC) [Entitic vol] 87.2 fL Normal 81-99 [facility] Comment on above: Performed By: #### L 503.6550, L503.6030, L100.9950, L100.0100 ####[facility] [address] [place], [address] Monocytes/100 WBC (Bld) 8.6 % Normal 0-10 [facility] Comment on above: Performed By: #### L 503.6550, L503.6030, L100.9950, L100.0100 ####[facility] [address] [place], [address] Neutrophils/100 WBC (Bld) 69.3 % Normal 47-70 [facility] Comment on above: Performed By: #### L 503.6550, L503.6030, L100.9950, L100.0100 ####[facility] [address] [place], [address] Nucleated RBC (Bld) [#/Vol] 0 10*3/uL Normal 0-5 [facility] Comment on above: Performed By: #### L 503.6550, L503.6030, L100.9950, L100.0100 ####[facility] [address] [place], [address] Platelet mean volume (Bld) [Entitic vol] 9.3 fL Normal 6.2-12.0 [facility] Comment on above: Performed By: #### L 503.6550, L503.6030, L100.9950, L100.0100 ####[facility] [address] [place], [address] Platelets (Bld) [#/Vol] 357 10*3/uL Normal 150-450 [facility] Comment on above: Performed By: #### L 503.6550, L503.6030, L100.9950, L100.0100 ####[facility] [address] [place], [address] RBC (Bld) [#/Vol] 4.30 10*6/uL Normal 4.2-5.4 [facility] Comment on above: Performed By: #### L 503.6550, L503.6030, L100.9950, L100.0100 ####[facility] [address] [place], [address] RDW SD 53.1 fl High 35.1-43.9 [facility] Comment on above: Performed By: #### L 503.6550, L503.6030, L100.9950, L100.0100 ####[facility] [address] [place], [address] WBC (Bld) [#/Vol] 6.6 10*3/uL Normal 4.4-11.0 [facility] Comment on above: Performed By: #### L 503.6550, L503.6030, L100.9950, L100.0100 ####[facility] [address] [place], [address] Ferritinon 08-23-2024 Ferritin [Mass/Vol] 7 ng/mL Low 8-252 [facility] Comment on above: Performed By: #### L 503.6550, L503.6030, L100.9950, L100.0100 ####[facility] [address] [place], [address] Ferritin measurementOrdered By: Dillan Cristina on 08-23-2024 Ferritin [Mass/Vol] 7 ng/mL Low 8-252 [facility] Iron measurement (mass/mass) Ordered By: Dillan Cristina on 08-23-2024 Iron (Unsp spec) [Mass/Mass] 43 ug/dL Low 50-170 [facility] Iron+Iron Binding Capacityon 08-23-2024 Iron [Mass/Vol] 43 ug/dL Low 50-170 [facility] Comment on above: Performed By: #### L 503.6550, L503.6030, L100.9950, L100.0100 ####[facility] [address] [place], [address] IRON SATURATION 9.4 Low 15.0-55.0 [facility] Comment on above: Performed By: #### L 503.6550, L503.6030, L100.9950, L100.0100 ####[facility] [address] [place], [address] TIBC 459 ug/dL High 250-450 [facility] Comment on above: Performed By: #### L 503.6550, L503.6030, L100.9950, L100.0100 ####[facility] [address] [place], [address] Oncology Visit Reporton Oncology Visit Report Normal [facility] Retic Panelon 08-23-2024 IM RET FRACTION 7.40 Normal 3.00-15.90 [facility] Comment on above: Performed By: #### L 503.6550, L503.6030, L100.9950, L100.0100 ####[facility] [address] [place], [address] RET-HE 30.3 pg Normal 30-35 [facility] Comment on above: Performed By: #### L 503.6550, L503.6030, L100.9950, L100.0100 ####[facility] [address] [place], [address] Retic Count 1.07 Normal 0.5-1.5 [facility] Comment on above: Performed By: #### L 503.6550, L503.6030, L100.9950, L100.0100 ####[facility] [address] [place], [address] Reticulocyte hemoglobin equi valent (RET-He) measurementOrdered By: Dillan Cristina on 08-23-2024 Hemoglobin (Reticulocytes) [Entitic mass] 30.3 pg 30-35 [facility] Reticulocytes Auto (Bld) [#/ Vol]Ordered By: Dillan Cristina on 08-23-2024 Reticulocytes/100 RBC (Bld) 1.07 % 0.5-1.5 [facility] Serum or plasma iron saturat ion measurement (mass fraction)Ordered By: Dillan Cristina on 08-23-2024 Iron saturation [Mass fraction] 9.4 % Low 15.0-55.0 [facility] Surgery Visit Reporton 08-09 Surgery Visit Report Normal [facility] Thyroidon 07-01-2024 Thyroid Normal [facility] Radiation Oncology Visiton 0 06-24-2024 Radiation Oncology Visit Normal [facility] Hemoglobin A1con 06-10-2024 HbA1c (Bld) [Mass fraction] 5.6 % Normal 3.8-5.6 [facility] Comment on above: Order Comment: GRACIA Gomez ADD A1C TO 06/09/24 BLOOD WORK PER Result Comment: Norm al < 5.7 % Prediabetic 5.7 - 6.4 % Diabetic >or= 6.5 % Please note range changes. Performed By: #### L 501.9985, L400.0001 ####[facility] [address] [place], [address] CBC W/Diff, Automatedon 05-21 Absolute Lymph 0.74 X10 3/uL Low 0.83-4.51 [facility] Comment on above: Order Comment: Order Date: 06/09/24Order Info: [id number] - CBCD Performed By: #### L 100.0100, L500.4100, L506.1000, L501.5200, L501.9520, L500.4050 ####[facility] [address] [place], [address] Absolute Neut 7.0 X10 3/uL Normal 2.0-7.7 [facility] Comment on above: Order Comment: Order Date: 06/09/24Order Info: [id number] - CBCD Performed By: #### L 100.0100, L500.4100, L506.1000, L501.5200, L501.9520, L500.4050 ####[facility] [address] [place], [address] Basophils/100 WBC (Bld) 0.7 % Normal 0-1 [facility] Comment on above: Order Comment: Order Date: 06/09/24Order Info: [id number] - CBCD Performed By: #### L 100.0100, L500.4100, L506.1000, L501.5200, L501.9520, L500.4050 ####[facility] [address] [place], [address] Eosinophils/100 WBC (Bld) 1.8 % Normal 0-5 [facility] Comment on above: Order Comment: Order Date: 06/09/24Order Info: 018-1 - CBCD Performed By: #### L 100.0100, L500.4100, L506.1000, L501.5200, L501.9520, L500.4050 ####[facility] [address] [place], [address] Erythrocyte distribution width (RBC) [Ratio] 17.2 % High 11.6-14.6 [facility] Comment on above: Order Comment: Order Date: 06/09/24Order Info: 018- - CBCD Performed By: #### L 100.0100, L500.4100, L506.1000, L501.5200, L501.9520, L500.4050 ####[facility] [address] [place], [address] Hematocrit (Bld) [Volume fraction] 36.8 % Low 37-47 [facility] Comment on above: Order Comment: Order Date: 06/09/24Order Info: 018- - CBCD Performed By: #### L 100.0100, L500.4100, L506.1000, L501.5200, L501.9520, L500.4050 ####[facility] [address] [place], [address] Hemoglobin (Bld) [Mass/Vol] 11.5 g/dL Low 12.0-15.0 [facility] Comment on above: Order Comment: Order Date: 06/09/24Order Info: 018- - CBCD Performed By: #### L 100.0100, L500.4100, L506.1000, L501.5200, L501.9520, L500.4050 ####[facility] [address] [place], [address] IG% 0.400 Normal 0.0-0.9 [facility] Comment on above: Order Comment: Order Date: 06/09/24Order Info: 018- - CBCD Result Comment: IG% - Immature Granulocytes (promyelocytes, myelocytes andmetamyelocytes) > 1% indicates that a LEFT SHIFT is Present. Performed By: #### L 100.0100, L500.4100, L506.1000, L501.5200, L501.9520, L500.4050 ####[facility] [address] [place], [address] Lymphocytes/100 WBC (Bld) 8.9 % Low 19-41 [facility] Comment on above: Order Comment: Order Date: 06/09/24Order Info: [id number] - CBCD Performed By: #### L 100.0100, L500.4100, L506.1000, L501.5200, L501.9520, L500.4050 ####[facility] [address] [place], [address] MCH (RBC) [Entitic mass] 27.8 pg Normal 27.0-32.0 [facility] Comment on above: Order Comment: Order Date: 06/09/24Order Info: 018- - CBCD Performed By: #### L 100.0100, L500.4100, L506.1000, L501.5200, L501.9520, L500.4050 ####[facility] [address] [place], [address] MCHC (RBC) [Mass/Vol] 31.3 g/dL Low 32-36 [facility] Comment on above: Order Comment: Order Date: 06/09/24Order Info: 018- - CBCD Performed By: #### L 100.0100, L500.4100, L506.1000, L501.5200, L501.9520, L500.4050 ####[facility] [address] [place], [address] MCV (RBC) [Entitic vol] 88.9 fL Normal 81-99 [facility] Comment on above: Order Comment: Order Date: 06/09/24Order Info: 018- - CBCD Performed By: #### L 100.0100, L500.4100, L506.1000, L501.5200, L501.9520, L500.4050 ####[facility] [address] [place], [address] Monocytes/100 WBC (Bld) 4.9 % Normal 0-10 [facility] Comment on above: Order Comment: Order Date: 06/09/24Order Info: 018- - CBCD Performed By: #### L 100.0100, L500.4100, L506.1000, L501.5200, L501.9520, L500.4050 ####[facility] [address] [place], [address] Neutrophils/100 WBC (Bld) 83.3 % High 47-70 [facility] Comment on above: Order Comment: Order Date: 06/09/24Order Info: 018- - CBCD Performed By: #### L 100.0100, L500.4100, L506.1000, L501.5200, L501.9520, L500.4050 ####[facility] [address] [place], [address] Nucleated RBC (Bld) [#/Vol] 0 10*3/uL Normal 0-5 [facility] Comment on above: Order Comment: Order Date: 06/09/24Order Info: 018- - CBCD Performed By: #### L 100.0100, L500.4100, L506.1000, L501.5200, L501.9520, L500.4050 ####[facility] [address] [place], [address] Platelet mean volume (Bld) [Entitic vol] 9.8 fL Normal 6.2-12.0 [facility] Comment on above: Order Comment: Order Date: 06/09/24Order Info: 018- - CBCD Performed By: #### L 100.0100, L500.4100, L506.1000, L501.5200, L501.9520, L500.4050 ####[facility] [address] [place], [address] Platelets (Bld) [#/Vol] 385 10*3/uL Normal 150-450 [facility] Comment on above: Order Comment: Order Date: 06/09/24Order Info: 018- - CBCD Performed By: #### L 100.0100, L500.4100, L506.1000, L501.5200, L501.9520, L500.4050 ####[facility] [address] [place], [address] RBC (Bld) [#/Vol] 4.14 10*6/uL Low 4.2-5.4 [facility] Comment on above: Order Comment: Order Date: 06/09/24Order Info: 018- - CBCD Performed By: #### L 100.0100, L500.4100, L506.1000, L501.5200, L501.9520, L500.4050 ####[facility] [address] [place], [address] RDW SD 55.8 fl High 35.1-43.9 [facility] Comment on above: Order Comment: Order Date: 06/09/24Order Info: 018-1 - CBCD Performed By: #### L 100.0100, L500.4100, L506.1000, L501.5200, L501.9520, L500.4050 ####[facility] [address] [place], [address] WBC (Bld) [#/Vol] 8.4 10*3/uL Normal 4.4-11.0 [facility] Comment on above: Order Comment: Order Date: 06/09/24Order Info: 0184-1 - CBCD Performed By: #### L 100.0100, L500.4100, L506.1000, L501.5200, L501.9520, L500.4050 ####[facility] [address] [place], [address] Comprehensive Metabolic Prof ilon 06-09-2024 Albumin [Mass/Vol] 3.6 g/dL Normal 3.2-5.0 [facility] Comment on above: Order Comment: Order Date: 06/09/24Order Info: [id number] - CMPOrder Info: [id number] - LIPIDOrder Info: [id number] - MGOrder Info: [id number] - TSH Performed By: #### L 100.0100, L500.4100, L506.1000, L501.5200, L501.9520, L500.4050 ####[facility] [address] [place], [place], [id number] Albumin/Globulin [Mass ratio] 1.1 {ratio} Normal 0.9-2.4 [facility] Comment on above: Order Comment: Order Date: 06/09/24Order Info: [id number] - CMPOrder Info: [id number] - LIPIDOrder Info: - MGOrder Info: [id number] - TSH Performed By: #### L 100.0100, L500.4100, L506.1000, L501.5200, L501.9520, L500.4050 ####[facility] [address] [place], [address] ALK P 82 U/L Normal 45-117 [facility] Comment on above: Order Comment: Order Date: 06/09/24Order Info: [id number] - CMPOrder Info: [id number] - LIPIDOrder Info: - MGOrder Info: [id number] - TSH Performed By: #### L 100.0100, L500.4100, L506.1000, L501.5200, L501.9520, L500.4050 ####[facility] [address] [place], [address] ALT [Catalytic activity/Vol] 21 U/L Normal 13-56 [facility] Comment on above: Order Comment: Order Date: 06/09/24Order Info: [id number] - CMPOrder Info: [id number] - LIPIDOrder Info: [id number] - MGOrder Info: [id number] - TSH Performed By: #### L 100.0100, L500.4100, L506.1000, L501.5200, L501.9520, L500.4050 ####[facility] [address] [place], [place], [id number] AST [Catalytic activity/Vol] 16 U/L Normal 15-37 [facility] Comment on above: Order Comment: Order Date: 06/09/24Order Info: [id number] - CMPOrder Info: [id number] - LIPIDOrder Info: [id number] - MGOrder Info: [id number] - TSH Performed By: #### L 100.0100, L500.4100, L506.1000, L501.5200, L501.9520, L500.4050 ####[facility] [address] [place], [place], [id number] Bilirubin [Mass/Vol] 0.20 mg/dL Normal 0.20-1.00 [facility] Comment on above: Order Comment: Order Date: 06/09/24Order Info: [id number] - CMPOrder Info: [id number] - LIPIDOrder Info: [id number] - MGOrder Info: [id number] - TSH Result Comment: For patients on eltrombopag therapy, use of Dimension Marble TBIL is not recommended. Performed By: #### L 100.0100, L500.4100, L506.1000, L501.5200, L501.9520, L500.4050 ####[facility] [address] [place], [address] BUN/CRE 19.5 RATIO Normal 10-20 [facility] Comment on above: Order Comment: Order Date: 06/09/24Order Info: [id number] - CMPOrder Info: [id number] - LIPIDOrder Info: [id number] - MGOrder Info: [id number] - TSH Performed By: #### L 100.0100, L500.4100, L506.1000, L501.5200, L501.9520, L500.4050 ####[facility] [address] [place], [address] CA,Total 9.7 mg/dL Normal 8.5-10.1 [facility] Comment on above: Order Comment: Order Date: 06/09/24Order Info: [id number] - CMPOrder Info: [id number] - LIPIDOrder Info: [id number] - MGOrder Info: [id number] - TSH Performed By: #### L 100.0100, L500.4100, L506.1000, L501.5200, L501.9520, L500.4050 ####[facility] [address] [place], [address] Chloride [Moles/Vol] 106 mmol/L Normal 98-107 [facility] Comment on above: Order Comment: Order Date: 06/09/24Order Info: [id number] - CMPOrder Info: [id number] - LIPIDOrder Info: [id number] - MGOrder Info: [id number] - TSH Performed By: #### L 100.0100, L500.4100, L506.1000, L501.5200, L501.9520, L500.4050 ####[facility] [address] [place], [address] CO2 [Moles/Vol] 28.0 mmol/L Normal 21.0-32.0 [facility] Comment on above: Order Comment: Order Date: 06/09/24Order Info: [id number] - CMPOrder Info: [id number] - LIPIDOrder Info: [id number] - MGOrder Info: [id number] - TSH Performed By: #### L 100.0100, L500.4100, L506.1000, L501.5200, L501.9520, L500.4050 ####[facility] [address] [place], [address] Creatinine [Mass/Vol] 0.66 mg/dL Normal 0.55-1.02 [facility] Comment on above: Order Comment: Order Date: 06/09/24Order Info: 86-1 - CMPOrder Info: [id number] - LIPIDOrder Info: [id number] - MGOrder Info: 3 - TSH Result Comment: The validity of the calculated GFR GFRAA in patients over70 years has not been determined. Clinical correlation isessential. Performed By: #### L 100.0100, L500.4100, L506.1000, L501.5200, L501.9520, L500.4050 ####[facility] [address] [place], [address] EST GFR - AA 114 mL/min Normal >60 [facility] Comment on above: Order Comment: Order Date: 06/09/24Order Info: [id number] - CMPOrder Info: [id number] - LIPIDOrder Info: [id number] - MGOrder Info: [id number] - TSH Result Comment: Afri can Colombian GFR Calc Performed By: #### L 100.0100, L500.4100, L506.1000, L501.5200, L501.9520, L500.4050 ####[facility] [address] [place], [address] GAP 2 Low 5-15 [facility] Comment on above: Order Comment: Order Date: 06/09/24Order Info: [id number] - CMPOrder Info: [id number] - LIPIDOrder Info: [id number] - MGOrder Info: 3 - TSH Performed By: #### L 100.0100, L500.4100, L506.1000, L501.5200, L501.9520, L500.4050 ####[facility] [address] [place], [address] GFR/1.73 sq M.predicted among non-blacks MDRD (S/P/Bld) [Vol rate/Area] 94 mL/min/{1.73_m2} Normal >60 [facility] Comment on above: Order Comment: Order Date: 06/09/24Order Info: [id number] - CMPOrder Info: [id number] - LIPIDOrder Info: [id number] - MGOrder Info: [id number] - TSH Result Comment: Non- GFR Calc Performed By: #### L 100.0100, L500.4100, L506.1000, L501.5200, L501.9520, L500.4050 ####[facility] [address] [place], [address] Globulin (S) [Mass/Vol] 3.4 g/dL Normal 2.2-4.2 [facility] Comment on above: Order Comment: Order Date: 06/09/24Order Info: [id number]- - CMPOrder Info: [id number] - LIPIDOrder Info: [id number] - MGOrder Info: [id number] - TSH Performed By: #### L 100.0100, L500.4100, L506.1000, L501.5200, L501.9520, L500.4050 ####[facility] [address] [place], [address] Glucose [Mass/Vol] 101 mg/dL Normal 74-106 [facility] Comment on above: Order Comment: Order Date: 06/09/24Order Info: [id number]- - CMPOrder Info: [id number] - LIPIDOrder Info: [id number] - MGOrder Info: [id number] - TSH Result Comment: Fast ing Glucose result from 100 to 125 mg/dLsuggests IMPAIRED HOMEOSTASIS per A.D.A. criteria. Performed By: #### L 100.0100, L500.4100, L506.1000, L501.5200, L501.9520, L500.4050 ####[facility] [address] [place], [address] Potassium [Moles/Vol] 3.9 mmol/L Normal 3.5-5.1 [facility] Comment on above: Order Comment: Order Date: 06/09/24Order Info: 86-1 - CMPOrder Info: [id number] - LIPIDOrder Info: [id number] - MGOrder Info: [id number] - TSH Performed By: #### L 100.0100, L500.4100, L506.1000, L501.5200, L501.9520, L500.4050 ####[facility] [address] [place], [address] Sodium [Moles/Vol] 136 mmol/L Normal 136-145 [facility] Comment on above: Order Comment: Order Date: 06/09/24Order Info: [id number]- - CMPOrder Info: - LIPIDOrder Info: [id number] - MGOrder Info: [id number] - TSH Performed By: #### L 100.0100, L500.4100, L506.1000, L501.5200, L501.9520, L500.4050 ####[facility] [address] [place], [address] T PROT 7.0 g/dL Normal 6.4-8.2 [facility] Comment on above: Order Comment: Order Date: 06/09/24Order Info: [id number] - CMPOrder Info: [id number] - LIPIDOrder Info: [id number] - MGOrder Info: [id number] - TSH Performed By: #### L 100.0100, L500.4100, L506.1000, L501.5200, L501.9520, L500.4050 ####[facility] [address] [place], [address] Urea nitrogen [Mass/Vol] 13 mg/dL Normal 7-18 [facility] Comment on above: Order Comment: Order Date: 06/09/24Order Info: [id number]- - CMPOrder Info: - LIPIDOrder Info: [id number] - MGOrder Info: [id number] - TSH Performed By: #### L 100.0100, L500.4100, L506.1000, L501.5200, L501.9520, L500.4050 ####[facility] [address] [place], [address] Lipid Profileon 06-09-2024 Cholesterol [Mass/Vol] 165 mg/dL Normal 200 [facility] Comment on above: Order Comment: Order Date: 06/09/24Order Info: [id number] - CMPOrder Info: - LIPIDOrder Info: [id number] - MGOrder Info: [id number] - TSH Result Comment: <200 mg/dL Desirable 200-240 mg/dL Borderline >240 mg/dL High Risk Performed By: #### L 100.0100, L500.4100, L506.1000, L501.5200, L501.9520, L500.4050 ####[facility] [address] [place], [address] Cholesterol in HDL [Mass/Vol] 61 mg/dL Normal [facility] Comment on above: Order Comment: Order Date: 06/09/24Order Info: [id number] - CMPOrder Info: - LIPIDOrder Info: [id number] - MGOrder Info: [id number] - TSH Result Comment: The drugs N-Acetylcysteine and Metamizole may falselydepress this assay. Reference Range HDL <40 mg/dL Low HDL Cholesterol HDL >or= 60 mg/dL High HDL Cholesterol Performed By: #### L 100.0100, L500.4100, L506.1000, L501.5200, L501.9520, L500.4050 ####[facility] [address] [place], [address] Cholesterol in LDL [Mass/Vol] 84 mg/dL Normal 0-130 [facility] Comment on above: Order Comment: Order Date: 06/09/24Order Info: [id number] - CMPOrder Info: [id number] - LIPIDOrder Info: [id number] - MGOrder Info: [id number] - TSH Performed By: #### L 100.0100, L500.4100, L506.1000, L501.5200, L501.9520, L500.4050 ####[facility] [address] [place], [address] Cholesterol in VLDL [Mass/Vol] 20 mg/dL Normal 5-40 [facility] Comment on above: Order Comment: Order Date: 06/09/24Order Info: [id number]- - CMPOrder Info: [id number] - LIPIDOrder Info: [id number] - MGOrder Info: [id number] - TSH Performed By: #### L 100.0100, L500.4100, L506.1000, L501.5200, L501.9520, L500.4050 ####[facility] [address] [place], [address] Triglyceride [Mass/Vol] 98 mg/dL Normal [facility] Comment on above: Order Comment: Order Date: 06/09/24Order Info: [id number] - CMPOrder Info: [id number] - LIPIDOrder Info: [id number] - MGOrder Info: [id number] - TSH Result Comment: The drugs N-Acetylcysteine and Metamizole may falselydepress this assay.Serum Triglycerides Reference Interval Normal <150 mg/dL Borderline high 150 - 199 mg/dL High 200 - 499 mg/dL Very High > or = 500 mg/dL Performed By: #### L 100.0100, L500.4100, L506.1000, L501.5200, L501.9520, L500.4050 ####[facility] [address] [place], [address] Magnesiumon 06-09-2024 Magnesium [Mass/Vol] 2.0 mg/dL Normal 1.6-2.6 [facility] Comment on above: Order Comment: Order Date: 06/09/24Order Info: [id number] - CMPOrder Info: [id number] - LIPIDOrder Info: [id number] - MGOrder Info: [id number] - TSH Performed By: #### L 100.0100, L500.4100, L506.1000, L501.5200, L501.9520, L500.4050 ####[facility] [address] [place], [address] Thyroid Stim Hormone (TSH)on 06-09-2024 TSH 0.845 uIU/mL Normal 0.358-3.74 0 [facility] Comment on above: Order Comment: Order Date: 06/09/24Order Info: [id number] - CMPOrder Info: [id number] - LIPIDOrder Info: [id number] - MGOrder Info: [id number] - TSH Performed By: #### L 100.0100, L500.4100, L506.1000, L501.5200, L501.9520, L500.4050 ####[facility] [address] [place], [address] Urinalysis, Completeon 06-09 BACTERIA 2+ /hpf Normal None Seen [facility] Comment on above: Order Comment: CLEAN CATCH Performed By: #### L 501.9985, L400.0001 ####[facility] [address] [place], [address] EPI,SQUAMOUS 0-5 SEEN Normal 5-10 [facility] Comment on above: Order Comment: CLEAN CATCH Performed By: #### L 501.9985, L400.0001 ####[facility] [address] [place], [address] WBC 5-10 SEEN Normal 0-5 [facility] Comment on above: Order Comment: CLEAN CATCH Performed By: #### L 501.9985, L400.0001 ####[facility] [address] [place], [address] Mucus Ql (Urine sed) 0 SEEN Normal [facility] Comment on above: Order Comment: CLEAN CATCH Performed By: #### L 501.9985, L400.0001 ####[facility] [address] [place], [address] RBC 0 SEEN Normal 0-5 [facility] Comment on above: Order Comment: CLEAN CATCH Performed By: #### L 501.9985, L400.0001 ####[facility] [address] [place], [place], [address] Vitamin D,25 Hydroxyon 06-09 Vitamin D 25-OH 57.6 ng/mL Normal [facility] Comment on above: Order Comment: Order Date: 06/09/24Order Info: [id number] - VITD25 Result Comment: Daria min D 25(OH) Status Range Deficiency <20 ng/mL (50nmol/L) Insufficiency 20 - 30 ng/mL (50 - 75 nmol/L) Sufficiency 30 - 100 ng/mL (75 - 250 nmol/L) Toxicity >100 ng/mL (>250 nmol/L) Performed By: #### L 100.0100, L500.4100, L506.1000, L501.5200, L501.9520, L500.4050 ####[facility] [address] [place], [address] End of Treatment Summaryon 0 05-27-2024 End of Treatment Summary Normal [facility] Oncology Visit Reporton 08 Oncology Visit Report Normal [facility] Radiation Oncology Visiton 0 05-24-2024 Radiation Oncology Visit Normal [facility] Radiation Oncology Visit Normal [facility] Radiation Oncology Visiton 0 05-19-2024 Radiation Oncology Visit Normal [facility] Radiation Oncology Visiton 0 05-12-2024 Radiation Oncology Visit Normal [facility] Orthopedic Visit Reporton Orthopedic Visit Report Normal [facility] Radiation Oncology Visiton 0 05-05-2024 Radiation Oncology Visit Normal [facility] Basic Metabolic Profile (BMP )on 05-03-2024 BUN Normal 7-18 [facility] Comment on above: Result Comment: Canc elled via OM: Order cancelled - Patient discharged Performed By: #### L 500.2500, L100.0100 ####[facility] [address] [place], [address] BUN/CRE Normal 10-20 [facility] Comment on above: Result Comment: Canc elled via OM: Order cancelled - Patient discharged Performed By: #### L 500.2500, L100.0100 ####[facility] [address] [place], [address] CA,Total Normal 8.5-10.1 [facility] Comment on above: Result Comment: Canc elled via OM: Order cancelled - Patient discharged Performed By: #### L 500.2500, L100.0100 ####[facility] [address] [place], [address] CL Normal 98-107 [facility] Comment on above: Result Comment: Canc elled via OM: Order cancelled - Patient discharged Performed By: #### L 500.2500, L100.0100 ####[facility] [address] [place], [address] CO2 Normal 21.0-32.0 [facility] Comment on above: Result Comment: Canc elled via OM: Order cancelled - Patient discharged Performed By: #### L 500.2500, L100.0100 ####[facility] [address] [place], [address] CREAT,SERUM Normal 0.55-1.02 [facility] Comment on above: Result Comment: Canc elled via OM: Order cancelled - Patient discharged Performed By: #### L 500.2500, L100.0100 ####[facility] [address] [place], [address] EST GFR Normal >60 [facility] Comment on above: Result Comment: Canc elled via OM: Order cancelled - Patient discharged Performed By: #### L 500.2500, L100.0100 ####[facility] [address] [place], [address] EST GFR - AA Normal >60 [facility] Comment on above: Result Comment: Canc elled via OM: Order cancelled - Patient discharged Performed By: #### L 500.2500, L100.0100 ####[facility] [address] [place], [address] GAP Normal 5-15 [facility] Comment on above: Result Comment: Canc elled via OM: Order cancelled - Patient discharged Performed By: #### L 500.2500, L100.0100 ####[facility] [address] [place], [address] GLU Normal 74-106 [facility] Comment on above: Result Comment: Canc elled via OM: Order cancelled - Patient discharged Performed By: #### L 500.2500, L100.0100 ####[facility] [address] [place], [address] Potassium Normal 3.5-5.1 [facility] Comment on above: Result Comment: Canc elled via OM: Order cancelled - Patient discharged Performed By: #### L 500.2500, L100.0100 ####[facility] [address] [place], [address] Basic Metabolic Profile (BMP) Normal 136-145 [facility] Comment on above: Result Comment: Canc elled via OM: Order cancelled - Patient discharged Performed By: #### L 500.2500, L100.0100 ####[facility] [address] [place], [address] CBC W/Diff, Automatedon 07-1 Absolute Neut Normal 2.0-7.7 [facility] Comment on above: Result Comment: Canc elled via OM: Order cancelled - Patient discharged Performed By: #### L 500.2500, L100.0100 ####[facility] [address] [place], [address] HCT Normal 37-47 [facility] Comment on above: Result Comment: Canc elled via OM: Order cancelled - Patient discharged Performed By: #### L 500.2500, L100.0100 ####[facility] [address] [place], [address] HGB Normal 12.0-15.0 [facility] Comment on above: Result Comment: Canc elled via OM: Order cancelled - Patient discharged Performed By: #### L 500.2500, L100.0100 ####[facility] [address] [place], [address] MCH Normal 27.0-32.0 [facility] Comment on above: Result Comment: Canc elled via OM: Order cancelled - Patient discharged Performed By: #### L 500.2500, L100.0100 ####[facility] [address] [place], [address] MCHC Normal 32-36 [facility] Comment on above: Result Comment: Canc elled via OM: Order cancelled - Patient discharged Performed By: #### L 500.2500, L100.0100 ####[facility] [address] [place], [address] MCV Normal 81-99 [facility] Comment on above: Result Comment: Canc elled via OM: Order cancelled - Patient discharged Performed By: #### L 500.2500, L100.0100 ####[facility] [address] [place], [address] NEUT% Normal 47-70 [facility] Comment on above: Result Comment: Canc elled via OM: Order cancelled - Patient discharged Performed By: #### L 500.2500, L100.0100 ####[facility] [address] [place], [address] PLT Normal 150-450 [facility] Comment on above: Result Comment: Canc elled via OM: Order cancelled - Patient discharged Performed By: #### L 500.2500, L100.0100 ####[facility] [address] [place], [address] RBC Normal 4.2-5.4 [facility] Comment on above: Result Comment: Canc elled via OM: Order cancelled - Patient discharged Performed By: #### L 500.2500, L100.0100 ####[facility] [address] [place], [address] RDW CV Normal 11.6-14.6 [facility] Comment on above: Result Comment: Canc elled via OM: Order cancelled - Patient discharged Performed By: #### L 500.2500, L100.0100 ####[facility] [address] [place], [address] RDW SD Normal 35.1-43.9 [facility] Comment on above: Result Comment: Canc elled via OM: Order cancelled - Patient discharged Performed By: #### L 500.2500, L100.0100 ####[facility] [address] [place], [address] WBC Normal 4.4-11.0 [facility] Comment on above: Result Comment: Canc elled via OM: Order cancelled - Patient discharged Performed By: #### L 500.2500, L100.0100 ####[facility] [address] [place], [address] Basic Metabolic Profile (BMP )on 05-02-2024 BUN Normal 7-18 [facility] Comment on above: Result Comment: Canc elled via OM: Order cancelled - Patient discharged Performed By: #### L 500.2500, L100.0100 ####[facility] [address] [place], [address] BUN/CRE Normal 10-20 [facility] Comment on above: Result Comment: Canc elled via OM: Order cancelled - Patient discharged Performed By: #### L 500.2500, L100.0100 ####[facility] [address] [place], [address] CA,Total Normal 8.5-10.1 [facility] Comment on above: Result Comment: Canc elled via OM: Order cancelled - Patient discharged Performed By: #### L 500.2500, L100.0100 ####[facility] [address] [place], [address] CL Normal 98-107 [facility] Comment on above: Result Comment: Canc elled via OM: Order cancelled - Patient discharged Performed By: #### L 500.2500, L100.0100 ####[facility] [address] [place], [address] CO2 Normal 21.0-32.0 [facility] Comment on above: Result Comment: Canc elled via OM: Order cancelled - Patient discharged Performed By: #### L 500.2500, L100.0100 ####[facility] [address] [place], [address] CREAT,SERUM Normal 0.55-1.02 [facility] Comment on above: Result Comment: Canc elled via OM: Order cancelled - Patient discharged Performed By: #### L 500.2500, L100.0100 ####[facility] [address] [place], [address] EST GFR Normal >60 [facility] Comment on above: Result Comment: Canc elled via OM: Order cancelled - Patient discharged Performed By: #### L 500.2500, L100.0100 ####[facility] [address] [place], [address] EST GFR - AA Normal >60 [facility] Comment on above: Result Comment: Canc elled via OM: Order cancelled - Patient discharged Performed By: #### L 500.2500, L100.0100 ####[facility] [address] [place], [address] GAP Normal 5-15 [facility] Comment on above: Result Comment: Canc elled via OM: Order cancelled - Patient discharged Performed By: #### L 500.2500, L100.0100 ####[facility] [address] [place], [address] GLU Normal 74-106 [facility] Comment on above: Result Comment: Canc elled via OM: Order cancelled - Patient discharged Performed By: #### L 500.2500, L100.0100 ####[facility] [address] [place], [address] Potassium Normal 3.5-5.1 [facility] Comment on above: Result Comment: Canc elled via OM: Order cancelled - Patient discharged Performed By: #### L 500.2500, L100.0100 ####[facility] [address] [place], [address] Basic Metabolic Profile (BMP) Normal 136-145 [facility] Comment on above: Result Comment: Canc elled via OM: Order cancelled - Patient discharged Performed By: #### L 500.2500, L100.0100 ####[facility] [address] [place], [address] CBC W/Diff, Automatedon 07-1 Absolute Neut Normal 2.0-7.7 [facility] Comment on above: Result Comment: Canc elled via OM: Order cancelled - Patient discharged Performed By: #### L 500.2500, L100.0100 ####[facility] [address] [place], [address] HCT Normal 37-47 [facility] Comment on above: Result Comment: Canc elled via OM: Order cancelled - Patient discharged Performed By: #### L 500.2500, L100.0100 ####[facility] [address] [place], [address] HGB Normal 12.0-15.0 [facility] Comment on above: Result Comment: Canc elled via OM: Order cancelled - Patient discharged Performed By: #### L 500.2500, L100.0100 ####[facility] [address] [place], [address] MCH Normal 27.0-32.0 [facility] Comment on above: Result Comment: Canc elled via OM: Order cancelled - Patient discharged Performed By: #### L 500.2500, L100.0100 ####[facility] [address] [place], [address] MCHC Normal 32-36 [facility] Comment on above: Result Comment: Canc elled via OM: Order cancelled - Patient discharged Performed By: #### L 500.2500, L100.0100 ####[facility] [address] [place], [address] MCV Normal 81-99 [facility] Comment on above: Result Comment: Canc elled via OM: Order cancelled - Patient discharged Performed By: #### L 500.2500, L100.0100 ####[facility] [address] [place], [address] NEUT% Normal 47-70 [facility] Comment on above: Result Comment: Canc elled via OM: Order cancelled - Patient discharged Performed By: #### L 500.2500, L100.0100 ####[facility] [address] [place], [address] PLT Normal 150-450 [facility] Comment on above: Result Comment: Canc elled via OM: Order cancelled - Patient discharged Performed By: #### L 500.2500, L100.0100 ####[facility] [address] [place], [address] RBC Normal 4.2-5.4 [facility] Comment on above: Result Comment: Canc elled via OM: Order cancelled - Patient discharged Performed By: #### L 500.2500, L100.0100 ####[facility] [address] [place], [address] RDW CV Normal 11.6-14.6 [facility] Comment on above: Result Comment: Canc elled via OM: Order cancelled - Patient discharged Performed By: #### L 500.2500, L100.0100 ####[facility] [address] [place], [address] RDW SD Normal 35.1-43.9 [facility] Comment on above: Result Comment: Canc elled via OM: Order cancelled - Patient discharged Performed By: #### L 500.2500, L100.0100 ####[facility] [address] [place], [address] WBC Normal 4.4-11.0 [facility] Comment on above: Result Comment: Canc elled via OM: Order cancelled - Patient discharged Performed By: #### L 500.2500, L100.0100 ####[facility] [address] [place], [address] Basic Metabolic Profile (BMP )on 05-01-2024 BUN Normal 7-18 [facility] Comment on above: Result Comment: Canc elled via OM: Order cancelled - Patient discharged Performed By: #### L 500.2500, L100.0100 ####[facility] [address] [place], [address] BUN/CRE Normal 10-20 [facility] Comment on above: Result Comment: Canc elled via OM: Order cancelled - Patient discharged Performed By: #### L 500.2500, L100.0100 ####[facility] [address] [place], [address] CA,Total Normal 8.5-10.1 [facility] Comment on above: Result Comment: Canc elled via OM: Order cancelled - Patient discharged Performed By: #### L 500.2500, L100.0100 ####[facility] [address] [place], [address] CL Normal 98-107 [facility] Comment on above: Result Comment: Canc elled via OM: Order cancelled - Patient discharged Performed By: #### L 500.2500, L100.0100 ####[facility] [address] [place], [address] CO2 Normal 21.0-32.0 [facility] Comment on above: Result Comment: Canc elled via OM: Order cancelled - Patient discharged Performed By: #### L 500.2500, L100.0100 ####[facility] [address] [place], [address] CREAT,SERUM Normal 0.55-1.02 [facility] Comment on above: Result Comment: Canc elled via OM: Order cancelled - Patient discharged Performed By: #### L 500.2500, L100.0100 ####[facility] [address] [place], [address] EST GFR Normal >60 [facility] Comment on above: Result Comment: Canc elled via OM: Order cancelled - Patient discharged Performed By: #### L 500.2500, L100.0100 ####[facility] [address] [place], [address] EST GFR - AA Normal >60 [facility] Comment on above: Result Comment: Canc elled via OM: Order cancelled - Patient discharged Performed By: #### L 500.2500, L100.0100 ####[facility] [address] [place], [address] GAP Normal 5-15 [facility] Comment on above: Result Comment: Canc elled via OM: Order cancelled - Patient discharged Performed By: #### L 500.2500, L100.0100 ####[facility] [address] [place], [address] GLU Normal 74-106 [facility] Comment on above: Result Comment: Canc elled via OM: Order cancelled - Patient discharged Performed By: #### L 500.2500, L100.0100 ####[facility] [address] [place], [address] Potassium Normal 3.5-5.1 [facility] Comment on above: Result Comment: Canc elled via OM: Order cancelled - Patient discharged Performed By: #### L 500.2500, L100.0100 ####[facility] [address] [place], [address] Basic Metabolic Profile (BMP) Normal 136-145 [facility] Comment on above: Result Comment: Canc elled via OM: Order cancelled - Patient discharged Performed By: #### L 500.2500, L100.0100 ####[facility] [address] [place], [address] CBC W/Diff, Automatedon 07-1 Absolute Neut Normal 2.0-7.7 [facility] Comment on above: Result Comment: Canc elled via OM: Order cancelled - Patient discharged Performed By: #### L 500.2500, L100.0100 ####[facility] [address] [place], [address] HCT Normal 37-47 [facility] Comment on above: Result Comment: Canc elled via OM: Order cancelled - Patient discharged Performed By: #### L 500.2500, L100.0100 ####[facility] [address] [place], [address] HGB Normal 12.0-15.0 [facility] Comment on above: Result Comment: Canc elled via OM: Order cancelled - Patient discharged Performed By: #### L 500.2500, L100.0100 ####[facility] [address] [place], [address] MCH Normal 27.0-32.0 [facility] Comment on above: Result Comment: Canc elled via OM: Order cancelled - Patient discharged Performed By: #### L 500.2500, L100.0100 ####[facility] [address] [place], [address] MCHC Normal 32-36 [facility] Comment on above: Result Comment: Canc elled via OM: Order cancelled - Patient discharged Performed By: #### L 500.2500, L100.0100 ####[facility] [address] [place], [address] MCV Normal 81-99 [facility] Comment on above: Result Comment: Canc elled via OM: Order cancelled - Patient discharged Performed By: #### L 500.2500, L100.0100 ####[facility] [address] [place], [address] NEUT% Normal 47-70 [facility] Comment on above: Result Comment: Canc elled via OM: Order cancelled - Patient discharged Performed By: #### L 500.2500, L100.0100 ####[facility] [address] [place], [address] PLT Normal 150-450 [facility] Comment on above: Result Comment: Canc elled via OM: Order cancelled - Patient discharged Performed By: #### L 500.2500, L100.0100 ####[facility] [address] [place], [address] RBC Normal 4.2-5.4 [facility] Comment on above: Result Comment: Canc elled via OM: Order cancelled - Patient discharged Performed By: #### L 500.2500, L100.0100 ####[facility] [address] [place], [address] RDW CV Normal 11.6-14.6 [facility] Comment on above: Result Comment: Canc elled via OM: Order cancelled - Patient discharged Performed By: #### L 500.2500, L100.0100 ####[facility] [address] [place], [address] RDW SD Normal 35.1-43.9 [facility] Comment on above: Result Comment: Canc elled via OM: Order cancelled - Patient discharged Performed By: #### L 500.2500, L100.0100 ####[facility] [address] [place], [address] WBC Normal 4.4-11.0 [facility] Comment on above: Result Comment: Canc elled via OM: Order cancelled - Patient discharged Performed By: #### L 500.2500, L100.0100 ####[facility] [address] [place], [address] Basic Metabolic Profile (BMP )on 04-30-2024 BUN/CRE 18.6 RATIO Normal 10-20 [facility] Comment on above: Performed By: #### L 500.2500, L100.0100 ####[facility] [address] [place], [address] CA,Total 8.9 mg/dL Normal 8.5-10.1 [facility] Comment on above: Performed By: #### L 500.2500, L100.0100 ####[facility] [address] [place], [address] Chloride [Moles/Vol] 109 mmol/L High 98-107 [facility] Comment on above: Performed By: #### L 500.2500, L100.0100 ####[facility] [address] [place], [address] CO2 [Moles/Vol] 24.0 mmol/L Normal 21.0-32.0 [facility] Comment on above: Performed By: #### L 500.2500, L100.0100 ####[facility] [address] [place], [address] Creatinine [Mass/Vol] 0.48 mg/dL Low 0.55-1.02 [facility] Comment on above: Result Comment: The validity of the calculated GFR GFRAA in patients over70 years has not been determined. Clinical correlation isessential. Performed By: #### L 500.2500, L100.0100 ####[facility] [address] [place], [address] ECRCL 60.02 ml/min Normal [facility] Comment on above: Performed By: #### L 500.2500, L100.0100 ####[facility] [address] [place], [address] EST GFR - AA 164 mL/min Normal >60 [facility] Comment on above: Result Comment: Afri can Colombian GFR Calc Performed By: #### L 500.2500, L100.0100 ####[facility] [address] [place], [address] GAP 6 Normal 5-15 [facility] Comment on above: Performed By: #### L 500.2500, L100.0100 ####[facility] [address] [place], [address] GFR/1.73 sq M.predicted among non-blacks MDRD (S/P/Bld) [Vol rate/Area] 135 mL/min/{1.73_m2} Normal >60 [facility] Comment on above: Result Comment: Non- GFR Calc Performed By: #### L 500.2500, L100.0100 ####[facility] [address] [place], [address] Glucose [Mass/Vol] 109 mg/dL High 74-106 [facility] Comment on above: Result Comment: Fast ing Glucose result from 100 to 125 mg/dLsuggests IMPAIRED HOMEOSTASIS per A.D.A. criteria. Performed By: #### L 500.2500, L100.0100 ####[facility] [address] [place], [address] Potassium [Moles/Vol] 3.6 mmol/L Normal 3.5-5.1 [facility] Comment on above: Performed By: #### L 500.2500, L100.0100 ####[facility] [address] [place], [address] Sodium [Moles/Vol] 139 mmol/L Normal 136-145 [facility] Comment on above: Performed By: #### L 500.2500, L100.0100 ####[facility] [address] [place], [address] Urea nitrogen [Mass/Vol] 9 mg/dL Normal 7-18 [facility] Comment on above: Performed By: #### L 500.2500, L100.0100 ####[facility] [address] [place], [address] CBC W/Diff, Automatedon 04-19 Absolute Lymph 1.99 X10 3/uL Normal 0.83-4.51 [facility] Comment on above: Performed By: #### L 500.2500, L100.0100 ####[facility] [address] [place], [address] Absolute Neut 4.6 X10 3/uL Normal 2.0-7.7 [facility] Comment on above: Performed By: #### L 500.2500, L100.0100 ####[facility] [address] [place], [address] Basophils/100 WBC (Bld) 0.7 % Normal 0-1 [facility] Comment on above: Performed By: #### L 500.2500, L100.0100 ####[facility] [address] [place], [address] Eosinophils/100 WBC (Bld) 3.6 % Normal 0-5 [facility] Comment on above: Performed By: #### L 500.2500, L100.0100 ####[facility] [address] [place], [address] Erythrocyte distribution width (RBC) [Ratio] 15.1 % High 11.6-14.6 [facility] Comment on above: Performed By: #### L 500.2500, L100.0100 ####[facility] [address] [place], [address] Hematocrit (Bld) [Volume fraction] 31.5 % Low 37-47 [facility] Comment on above: Performed By: #### L 500.2500, L100.0100 ####[facility] [address] [place], [address] Hemoglobin (Bld) [Mass/Vol] 10.2 g/dL Low 12.0-15.0 [facility] Comment on above: Performed By: #### L 500.2500, L100.0100 ####[facility] [address] [place], [address] IG% 0.300 Normal 0.0-0.9 [facility] Comment on above: Result Comment: IG% - Immature Granulocytes (promyelocytes, myelocytes andmetamyelocytes) > 1% indicates that a LEFT SHIFT is Present. Performed By: #### L 500.2500, L100.0100 ####[facility] [address] [place], [address] Lymphocytes/100 WBC (Bld) 26.3 % Normal 19-41 [facility] Comment on above: Performed By: #### L 500.2500, L100.0100 ####[facility] [address] [place], [address] MCH (RBC) [Entitic mass] 28.3 pg Normal 27.0-32.0 [facility] Comment on above: Performed By: #### L 500.2500, L100.0100 ####[facility] [address] [place], [address] MCHC (RBC) [Mass/Vol] 32.4 g/dL Normal 32-36 [facility] Comment on above: Performed By: #### L 500.2500, L100.0100 ####[facility] [address] [place], [address] MCV (RBC) [Entitic vol] 87.5 fL Normal 81-99 [facility] Comment on above: Performed By: #### L 500.2500, L100.0100 ####[facility] [address] [place], [address] Monocytes/100 WBC (Bld) 7.9 % Normal 0-10 [facility] Comment on above: Performed By: #### L 500.2500, L100.0100 ####[facility] [address] [place], [address] Neutrophils/100 WBC (Bld) 61.2 % Normal 47-70 [facility] Comment on above: Performed By: #### L 500.2500, L100.0100 ####[facility] [address] [place], [address] Nucleated RBC (Bld) [#/Vol] 0 10*3/uL Normal 0-5 [facility] Comment on above: Performed By: #### L 500.2500, L100.0100 ####[facility] [address] [place], [address] Platelet mean volume (Bld) [Entitic vol] 9.5 fL Normal 6.2-12.0 [facility] Comment on above: Performed By: #### L 500.2500, L100.0100 ####[facility] [address] [place], [address] Platelets (Bld) [#/Vol] 420 10*3/uL Normal 150-450 [facility] Comment on above: Performed By: #### L 500.2500, L100.0100 ####[facility] [address] [place], [address] RBC (Bld) [#/Vol] 3.60 10*6/uL Low 4.2-5.4 [facility] Comment on above: Performed By: #### L 500.2500, L100.0100 ####[facility] [address] [place], [address] RDW SD 48.4 fl High 35.1-43.9 [facility] Comment on above: Performed By: #### L 500.2500, L100.0100 ####[facility] [address] [place], [address] WBC (Bld) [#/Vol] 7.6 10*3/uL Normal 4.4-11.0 [facility] Comment on above: Performed By: #### L 500.2500, L100.0100 ####[facility] [address] [place], [address] Discharge Instructionon 04-19 Discharge Instruction Normal [facility] Basic Metabolic Profile (BMP )on 04-29-2024 BUN/CRE 11.5 RATIO Normal 10-20 [facility] Comment on above: Performed By: #### L 501.2300, L501.5200, L100.0100, L500.2500 ####[facility] [address] [place], [address] CA,Total 9.5 mg/dL Normal 8.5-10.1 [facility] Comment on above: Performed By: #### L 501.2300, L501.5200, L100.0100, L500.2500 ####[facility] [address] [place], [address] Chloride [Moles/Vol] 107 mmol/L Normal 98-107 [facility] Comment on above: Performed By: #### L 501.2300, L501.5200, L100.0100, L500.2500 ####[facility] [address] [place], [address] CO2 [Moles/Vol] 23.0 mmol/L Normal 21.0-32.0 [facility] Comment on above: Performed By: #### L 501.2300, L501.5200, L100.0100, L500.2500 ####[facility] [address] [place], [address] Creatinine [Mass/Vol] 0.61 mg/dL Normal 0.55-1.02 [facility] Comment on above: Result Comment: The validity of the calculated GFR GFRAA in patients over70 years has not been determined. Clinical correlation isessential. Performed By: #### L 501.2300, L501.5200, L100.0100, L500.2500 ####[facility] [address] [place], [address] ECRCL 59.98 ml/min Normal [facility] Comment on above: Performed By: #### L 501.2300, L501.5200, L100.0100, L500.2500 ####[facility] [address] [place], [address] EST GFR - AA 125 mL/min Normal >60 [facility] Comment on above: Result Comment: Afri can Colombian GFR Calc Performed By: #### L 501.2300, L501.5200, L100.0100, L500.2500 ####[facility] [address] [place], [address] GAP 7 Normal 5-15 [facility] Comment on above: Performed By: #### L 501.2300, L501.5200, L100.0100, L500.2500 ####[facility] [address] [place], [address] GFR/1.73 sq M.predicted among non-blacks MDRD (S/P/Bld) [Vol rate/Area] 104 mL/min/{1.73_m2} Normal >60 [facility] Comment on above: Result Comment: Non- GFR Calc Performed By: #### L 501.2300, L501.5200, L100.0100, L500.2500 ####[facility] [address] [place], [address] Glucose [Mass/Vol] 113 mg/dL High 74-106 [facility] Comment on above: Result Comment: Fast ing Glucose result from 100 to 125 mg/dLsuggests IMPAIRED HOMEOSTASIS per A.D.A. criteria. Performed By: #### L 501.2300, L501.5200, L100.0100, L500.2500 ####[facility] [address] [place], [address] Potassium [Moles/Vol] 3.6 mmol/L Normal 3.5-5.1 [facility] Comment on above: Performed By: #### L 501.2300, L501.5200, L100.0100, L500.2500 ####[facility] [address] [place], [address] Sodium [Moles/Vol] 137 mmol/L Normal 136-145 [facility] Comment on above: Performed By: #### L 501.2300, L501.5200, L100.0100, L500.2500 ####[facility] [address] [place], [address] Urea nitrogen [Mass/Vol] 7 mg/dL Normal 7-18 [facility] Comment on above: Performed By: #### L 501.2300, L501.5200, L100.0100, L500.2500 ####[facility] [address] [place], [address] CBC W/Diff, Automatedon 07-10 20-2023 Absolute Lymph 2.13 X10 3/uL Normal 0.83-4.51 [facility] Comment on above: Performed By: #### L 501.2300, L501.5200, L100.0100, L500.2500 ####[facility] [address] [place], [address] Absolute Neut 7.1 X10 3/uL Normal 2.0-7.7 [facility] Comment on above: Performed By: #### L 501.2300, L501.5200, L100.0100, L500.2500 ####[facility] [address] [place], [address] Basophils/100 WBC (Bld) 0.5 % Normal 0-1 [facility] Comment on above: Performed By: #### L 501.2300, L501.5200, L100.0100, L500.2500 ####[facility] [address] [place], [address] Eosinophils/100 WBC (Bld) 2.3 % Normal 0-5 [facility] Comment on above: Performed By: #### L 501.2300, L501.5200, L100.0100, L500.2500 ####[facility] [address] [place], [address] Erythrocyte distribution width (RBC) [Ratio] 15.2 % High 11.6-14.6 [facility] Comment on above: Performed By: #### L 501.2300, L501.5200, L100.0100, L500.2500 ####[facility] [address] [place], [address] Hematocrit (Bld) [Volume fraction] 34.7 % Low 37-47 [facility] Comment on above: Performed By: #### L 501.2300, L501.5200, L100.0100, L500.2500 ####[facility] [address] [place], [address] Hemoglobin (Bld) [Mass/Vol] 11.0 g/dL Low 12.0-15.0 [facility] Comment on above: Performed By: #### L 501.2300, L501.5200, L100.0100, L500.2500 ####[facility] [address] [place], [address] IG% 0.400 Normal 0.0-0.9 [facility] Comment on above: Result Comment: IG% - Immature Granulocytes (promyelocytes, myelocytes andmetamyelocytes) > 1% indicates that a LEFT SHIFT is Present. Performed By: #### L 501.2300, L501.5200, L100.0100, L500.2500 ####[facility] [address] [place], [address] Lymphocytes/100 WBC (Bld) 21.1 % Normal 19-41 [facility] Comment on above: Performed By: #### L 501.2300, L501.5200, L100.0100, L500.2500 ####[facility] [address] [place], [address] MCH (RBC) [Entitic mass] 27.5 pg Normal 27.0-32.0 [facility] Comment on above: Performed By: #### L 501.2300, L501.5200, L100.0100, L500.2500 ####[facility] [address] [place], [address] MCHC (RBC) [Mass/Vol] 31.7 g/dL Low 32-36 [facility] Comment on above: Performed By: #### L 501.2300, L501.5200, L100.0100, L500.2500 ####[facility] [address] [place], [address] MCV (RBC) [Entitic vol] 86.8 fL Normal 81-99 [facility] Comment on above: Performed By: #### L 501.2300, L501.5200, L100.0100, L500.2500 ####[facility] [address] [place], [address] Monocytes/100 WBC (Bld) 5.8 % Normal 0-10 [facility] Comment on above: Performed By: #### L 501.2300, L501.5200, L100.0100, L500.2500 ####[facility] [address] [place], [address] Neutrophils/100 WBC (Bld) 69.9 % Normal 47-70 [facility] Comment on above: Performed By: #### L 501.2300, L501.5200, L100.0100, L500.2500 ####[facility] [address] [place], [address] Nucleated RBC (Bld) [#/Vol] 0 10*3/uL Normal 0-5 [facility] Comment on above: Performed By: #### L 501.2300, L501.5200, L100.0100, L500.2500 ####[facility] [address] [place], [address] Platelet mean volume (Bld) [Entitic vol] 9.5 fL Normal 6.2-12.0 [facility] Comment on above: Performed By: #### L 501.2300, L501.5200, L100.0100, L500.2500 ####[facility] [address] [place], [address] Platelets (Bld) [#/Vol] 473 10*3/uL High 150-450 [facility] Comment on above: Performed By: #### L 501.2300, L501.5200, L100.0100, L500.2500 ####[facility] [address] [place], [address] RBC (Bld) [#/Vol] 4.00 10*6/uL Low 4.2-5.4 [facility] Comment on above: Performed By: #### L 501.2300, L501.5200, L100.0100, L500.2500 ####[facility] [address] [place], [address] RDW SD 48.3 fl High 35.1-43.9 [facility] [facility] Comment on above: Performed By: #### L 501.2300, L501.5200, L100.0100, L500.2500 ####[facility] [address] [place], [address] WBC (Bld) [#/Vol] 10.1 10*3/uL Normal 4.4-11.0 [facility] Comment on above: Performed By: #### L 501.2300, L501.5200, L100.0100, L500.2500 ####[facility] [address] [place], [address] Magnesiumon 04-29-2024 Magnesium [Mass/Vol] 2.1 mg/dL Normal 1.6-2.6 [facility] Comment on above: Performed By: #### L 501.2300, L501.5200, L100.0100, L500.2500 ####[facility] [address] [place], [address] Phosphoruson 04-29-2024 Phosphate [Mass/Vol] 2.6 mg/dL Normal 2.5-4.9 [facility] Comment on above: Performed By: #### L 501.2300, L501.5200, L100.0100, L500.2500 ####[facility] [address] [place], [address] CBC W/Diff, Automatedon 04-19 Absolute Lymph 1.66 X10 3/uL Normal 0.83-4.51 [facility] Comment on above: Performed By: #### L 500.4050, L100.0100 ####[facility] [address] [place], [address] Absolute Neut 7.0 X10 3/uL Normal 2.0-7.7 [facility] Comment on above: Performed By: #### L 500.4050, L100.0100 ####[facility] [address] [place], [address] Basophils/100 WBC (Bld) 0.5 % Normal 0-1 [facility] Comment on above: Performed By: #### L 500.4050, L100.0100 ####[facility] [address] [place], [address] Eosinophils/100 WBC (Bld) 2.7 % Normal 0-5 [facility] Comment on above: Performed By: #### L 500.4050, L100.0100 ####[facility] [address] [place], [address] Erythrocyte distribution width (RBC) [Ratio] 15.3 % High 11.6-14.6 [facility] Comment on above: Performed By: #### L 500.4050, L100.0100 ####[facility] [address] [place], [address] Hematocrit (Bld) [Volume fraction] 31.9 % Low 37-47 [facility] Comment on above: Performed By: #### L 500.4050, L100.0100 ####[facility] [address] [place], [address] Hemoglobin (Bld) [Mass/Vol] 10.2 g/dL Low 12.0-15.0 [facility] Comment on above: Performed By: #### L 500.4050, L100.0100 ####[facility] [address] [place], [address] IG% 0.400 Normal 0.0-0.9 [facility] Comment on above: Result Comment: IG% - Immature Granulocytes (promyelocytes, myelocytes andmetamyelocytes) > 1% indicates that a LEFT SHIFT is Present. Performed By: #### L 500.4050, L100.0100 ####[facility] [address] [place], [address] Lymphocytes/100 WBC (Bld) 17.0 % Low 19-41 [facility] Comment on above: Performed By: #### L 500.4050, L100.0100 ####[facility] [address] [place], [address] MCH (RBC) [Entitic mass] 28.0 pg Normal 27.0-32.0 [facility] Comment on above: Performed By: #### L 500.4050, L100.0100 ####[facility] [address] [place], [address] MCHC (RBC) [Mass/Vol] 32.0 g/dL Normal 32-36 [facility] Comment on above: Performed By: #### L 500.4050, L100.0100 ####[facility] [address] [place], [address] MCV (RBC) [Entitic vol] 87.6 fL Normal 81-99 [facility] Comment on above: Performed By: #### L 500.4050, L100.0100 ####[facility] [address] [place], [address] Monocytes/100 WBC (Bld) 8.3 % Normal 0-10 [facility] Comment on above: Performed By: #### L 500.4050, L100.0100 ####[facility] [address] [place], [address] Neutrophils/100 WBC (Bld) 71.1 % High 47-70 [facility] Comment on above: Performed By: #### L 500.4050, L100.0100 ####[facility] [address] [place], [address] Nucleated RBC (Bld) [#/Vol] 0 10*3/uL Normal 0-5 [facility] Comment on above: Performed By: #### L 500.4050, L100.0100 ####[facility] [address] [place], [address] Platelet mean volume (Bld) [Entitic vol] 9.5 fL Normal 6.2-12.0 [facility] Comment on above: Performed By: #### L 500.4050, L100.0100 ####[facility] [address] [place], [address] Platelets (Bld) [#/Vol] 432 10*3/uL Normal 150-450 [facility] Comment on above: Performed By: #### L 500.4050, L100.0100 ####[facility] [address] [place], [address] RBC (Bld) [#/Vol] 3.64 10*6/uL Low 4.2-5.4 [facility] Comment on above: Performed By: #### L 500.4050, L100.0100 ####[facility] [address] [place], [address] RDW SD 49.2 fl High 35.1-43.9 [facility] Comment on above: Performed By: #### L 500.4050, L100.0100 ####[facility] [address] [place], [address] WBC (Bld) [#/Vol] 9.8 10*3/uL Normal 4.4-11.0 [facility] Comment on above: Performed By: #### L 500.4050, L100.0100 ####[facility] [address] [place], [address] Comprehensive Metabolic Prof [facility] 04-28-2024 Albumin [Mass/Vol] 3.3 g/dL Normal 3.2-5.0 [facility] Comment on above: Performed By: #### L 500.4050, L100.0100 ####[facility] [address] [place], [address] Albumin/Globulin [Mass ratio] 1.0 {ratio} Normal 0.9-2.4 [facility] Comment on above: Performed By: #### L 500.4050, L100.0100 ####[facility] [address] [place], [address] ALK P 85 U/L Normal 45-117 [facility] Comment on above: Performed By: #### L 500.4050, L100.0100 ####[facility] [address] [place], [address] ALT [Catalytic activity/Vol] 18 U/L Normal 13-56 [facility] Comment on above: Performed By: #### L 500.4050, L100.0100 ####[facility] [address] [place], [address] AST [Catalytic activity/Vol] 14 U/L Low 15-37 [facility] Comment on above: Performed By: #### L 500.4050, L100.0100 ####[facility] [address] [place], [address] Bilirubin [Mass/Vol] 0.40 mg/dL Normal 0.20-1.00 [facility] Comment on above: Result Comment: For patients on eltrombopag therapy, use of Dimension Marble TBIL is not recommended. Performed By: #### L 500.4050, L100.0100 ####[facility] [address] [place], [address] BUN/CRE 16.0 RATIO Normal 10-20 [facility] Comment on above: Performed By: #### L 500.4050, L100.0100 ####[facility] [address] [place], [address] CA,Total 8.8 mg/dL Normal 8.5-10.1 [facility] Comment on above: Performed By: #### L 500.4050, L100.0100 ####[facility] [address] [place], [address] Chloride [Moles/Vol] 110 mmol/L High 98-107 [facility] Comment on above: Performed By: #### L 500.4050, L100.0100 ####[facility] [address] [place], [address] CO2 [Moles/Vol] 24.0 mmol/L Normal 21.0-32.0 [facility] Comment on above: Performed By: #### L 500.4050, L100.0100 ####[facility] [address] [place], [address] Creatinine [Mass/Vol] 0.62 mg/dL Normal 0.55-1.02 [facility] Comment on above: Result Comment: The validity of the calculated GFR GFRAA in patients over70 years has not been determined. Clinical correlation isessential. Performed By: #### L 500.4050, L100.0100 ####[facility] [address] [place], [address] ECRCL 59.98 ml/min Normal [facility] Comment on above: Performed By: #### L 500.4050, L100.0100 ####[facility] [address] [place], [address] EST GFR - AA 122 mL/min Normal >60 [facility] Comment on above: Result Comment: Afri can Colombian GFR Calc Performed By: #### L 500.4050, L100.0100 ####[facility] [address] [place], [address] GAP 5 Normal 5-15 [facility] Comment on above: Performed By: #### L 500.4050, L100.0100 ####[facility] [address] [place], [address] GFR/1.73 sq M.predicted among non-blacks MDRD (S/P/Bld) [Vol rate/Area] 101 mL/min/{1.73_m2} Normal >60 [facility] Comment on above: Result Comment: Non- GFR Calc Performed By: #### L 500.4050, L100.0100 ####[facility] [address] [place], [address] Globulin (S) [Mass/Vol] 3.2 g/dL Normal 2.2-4.2 [facility] Comment on above: Performed By: #### L 500.4050, L100.0100 ####[facility] [address] [place], [address] Glucose [Mass/Vol] 106 mg/dL Normal 74-106 [facility] Comment on above: Result Comment: Fast ing Glucose result from 100 to 125 mg/dLsuggests IMPAIRED HOMEOSTASIS per A.D.A. criteria. Performed By: #### L 500.4050, L100.0100 ####[facility] [address] [place], [address] Potassium [Moles/Vol] 3.7 mmol/L Normal 3.5-5.1 [facility] Comment on above: Performed By: #### L 500.4050, L100.0100 ####[facility] [address] [place], [address] Sodium [Moles/Vol] 139 mmol/L Normal 136-145 [facility] Comment on above: Performed By: #### L 500.4050, L100.0100 ####[facility] [address] [place], [address] T PROT 6.5 g/dL Normal 6.4-8.2 [facility] Comment on above: Performed By: #### L 500.4050, L100.0100 ####[facility] [address] [place], [address] Urea nitrogen [Mass/Vol] 10 mg/dL Normal 7-18 [facility] Comment on above: Performed By: #### L 500.4050, L100.0100 ####[facility] [address] [place], [address] Consultation - Orthopedicson 04-28-2024 Consultation - Orthopedics Normal [facility] Basic Metabolic Profile (BMP )on 04-27-2024 BUN/CRE 17.6 RATIO Normal 10-20 [facility] Comment on above: Performed By: #### L 100.0100, L500.2500 ####[facility] [address] [place], [address] CA,Total 9.5 mg/dL Normal 8.5-10.1 [facility] Comment on above: Performed By: #### L 100.0100, L500.2500 ####[facility] [address] [place], [address] Chloride [Moles/Vol] 106 mmol/L Normal 98-107 [facility] Comment on above: Performed By: #### L 100.0100, L500.2500 ####[facility] [address] [place], [address] CO2 [Moles/Vol] 28.0 mmol/L Normal 21.0-32.0 [facility] Comment on above: Performed By: #### L 100.0100, L500.2500 ####[facility] [address] [place], [address] Creatinine [Mass/Vol] 0.68 mg/dL Normal 0.55-1.02 [facility] Comment on above: Result Comment: The validity of the calculated GFR GFRAA in patients over70 years has not been determined. Clinical correlation isessential. Performed By: #### L 100.0100, L500.2500 ####[facility] [address] [place], [address] ECRCL 60.10 ml/min Normal [facility] Comment on above: Performed By: #### L 100.0100, L500.2500 ####[facility] [address] [place], [address] EST GFR - AA 111 mL/min Normal >60 [facility] Comment on above: Result Comment: Afri can Colombian GFR Calc Performed By: #### L 100.0100, L500.2500 ####[facility] [address] [place], [address] GAP 4 Low 5-15 [facility] Comment on above: Performed By: #### L 100.0100, L500.2500 ####[facility] [address] [place], [address] GFR/1.73 sq M.predicted among non-blacks MDRD (S/P/Bld) [Vol rate/Area] 92 mL/min/{1.73_m2} Normal >60 [facility] Comment on above: Result Comment: Non- GFR Calc Performed By: #### L 100.0100, L500.2500 ####[facility] [address] [place], [address] Glucose [Mass/Vol] 96 mg/dL Normal 74-106 [facility] Comment on above: Performed By: #### L 100.0100, L500.2500 ####[facility] [address] [place], [address] Potassium [Moles/Vol] 3.8 mmol/L Normal 3.5-5.1 [facility] Comment on above: Performed By: #### L 100.0100, L500.2500 ####[facility] [address] [place], [address] Sodium [Moles/Vol] 138 mmol/L Normal 136-145 [facility] Comment on above: Performed By: #### L 100.0100, L500.2500 ####[facility] [address] [place], [address] Urea nitrogen [Mass/Vol] 12 mg/dL Normal 7-18 [facility] Comment on above: Performed By: #### L 100.0100, L500.2500 ####[facility] [address] [place], [address] CBC W/Diff, Automatedon 07-0 -2023 Absolute Lymph 1.95 X10 3/uL Normal 0.83-4.51 [facility] Comment on above: Performed By: #### L 100.0100, L500.2500 ####[facility] [address] [place], [address] Absolute Neut 6.7 X10 3/uL Normal 2.0-7.7 [facility] Comment on above: Performed By: #### L 100.0100, L500.2500 ####[place] [facility] [address] [place], [address] Basophils/100 WBC (Bld) 0.6 % Normal 0-1 [facility] Comment on above: Performed By: #### L 100.0100, L500.2500 ####[facility] [address] [place], [address] Eosinophils/100 WBC (Bld) 1.6 % Normal 0-5 [facility] Comment on above: Performed By: #### L 100.0100, L500.2500 ####[facility] [address] [place], [address] Erythrocyte distribution width (RBC) [Ratio] 15.4 % High 11.6-14.6 [facility] Comment on above: Performed By: #### L 100.0100, L500.2500 ####[facility] [address] [place], [address] Hematocrit (Bld) [Volume fraction] 33.7 % Low 37-47 [facility] Comment on above: Performed By: #### L 100.0100, L500.2500 ####[facility] [address] [place], [address] Hemoglobin (Bld) [Mass/Vol] 10.7 g/dL Low 12.0-15.0 [facility] Comment on above: Performed By: #### L 100.0100, L500.2500 ####[facility] [address] [place], [address] IG% 0.500 Normal 0.0-0.9 [facility] Comment on above: Result Comment: IG% - Immature Granulocytes (promyelocytes, myelocytes andmetamyelocytes) > 1% indicates that a LEFT SHIFT is Present. Performed By: #### L 100.0100, L500.2500 ####[facility] [address] [place], [address] Lymphocytes/100 WBC (Bld) 19.9 % Normal 19-41 [facility] Comment on above: Performed By: #### L 100.0100, L500.2500 ####[facility] [address] [place], [address] MCH (RBC) [Entitic mass] 27.4 pg Normal 27.0-32.0 [facility] Comment on above: Performed By: #### L 100.0100, L500.2500 ####[facility] [address] [place], [address] MCHC (RBC) [Mass/Vol] 31.8 g/dL Low 32-36 [facility] Comment on above: Performed By: #### L 100.0100, L500.2500 ####[facility] [address] [place], [address] MCV (RBC) [Entitic vol] 86.2 fL Normal 81-99 [facility] Comment on above: Performed By: #### L 100.0100, L500.2500 ####[facility] [address] [place], [address] Monocytes/100 WBC (Bld) 9.0 % Normal 0-10 [facility] Comment on above: Performed By: #### L 100.0100, L500.2500 ####[facility] [address] [place], [address] Neutrophils/100 WBC (Bld) 68.4 % Normal 47-70 [facility] Comment on above: Performed By: #### L 100.0100, L500.2500 ####[facility] [address] [place], [address] Nucleated RBC (Bld) [#/Vol] 0 10*3/uL Normal 0-5 [facility] Comment on above: Performed By: #### L 100.0100, L500.2500 ####[facility] [address] [place], [address] Platelet mean volume (Bld) [Entitic vol] 9.1 fL Normal 6.2-12.0 [facility] Comment on above: Performed By: #### L 100.0100, L500.2500 ####[facility] [address] [place], [address] Platelets (Bld) [#/Vol] 496 10*3/uL High 150-450 [facility] Comment on above: Performed By: #### L 100.0100, L500.2500 ####[facility] [address] [place], [address] RBC (Bld) [#/Vol] 3.91 10*6/uL Low 4.2-5.4 [facility] Comment on above: Performed By: #### L 100.0100, L500.2500 ####[facility] [address] [place], [address] RDW SD 48.1 fl High 35.1-43.9 [facility] Comment on above: Performed By: #### L 100.0100, L500.2500 ####[facility] [address] [place], [address] WBC (Bld) [#/Vol] 9.8 10*3/uL Normal 4.4-11.0 [facility] Comment on above: Performed By: #### L 100.0100, L500.2500 ####[facility] [address] [place], [address] CRPon 04-27-2024 C-REACTIVE PROT 77.00 mg/L High 0.0-3.0 [facility] Comment on above: Order Comment: Comme nts: May add to ED labs Result Comment: C-Re active Protein (CRP) provides useful information for thediagnosis, therapy and monitoring of inflammatory processesand associated diseases. For the evaluation of Relative Riskfor Cardiovascular Disease, a High Sensitivity CRP (HSCRP)should be ordered. Performed By: #### L 101.9900, L501.6710 ####[facility] [address] [place], [address] Emergency Department Summary on 04-27-2024 Emergency Department Summary Normal [facility] Erythrocyte Sed Rateon 04-27 SED RATE 26 mm/hr Normal 0-30 [facility] Comment on above: Performed By: #### L 101.9900, L501.6710 ####[facility] [address] [place], [address] H AND P Exam - Hospitaliston 04-27-2024 H&P Exam - Hospitalist Normal [facility] Hand Min 3 Viewson Hand Min 3 Views Normal [facility] Radiation Oncology Visiton 0 04-14-2024 Radiation Oncology Visit Normal [facility] Absolute lymphocyte countOrd ered By: Melissa Stinson on 02-07-2024 Lymphocytes Auto (Unsp spec) [#/Vol] 1.54 10*3/uL 0.83-4.51 [facility] Automated lymphocyte count a s percentage of total leukocytesOrdered By: Melissa Stinson on 02-07-2024 Lymphocytes/100 WBC Auto (Unsp spec) 11.4 % 19-41 [facility] Basophil percentageOrdered B y: Melissa [facility] on 02-07-2024 Basophils/100 WBC (Bld) 0.1 % 0-1 [facility] Chloride [Moles/Vol] 109 mmol/L 98-107 [facility] Eosinophils/100 WBC (Bld) 0.0 % 0-5 [facility] Glucose [Mass/Vol] 136 mg/dL 74-106 [facility] Comment on above: Fasting Glucose resu lt greater than or equal to 126 mg/dL suggests DIABETES MELLITUS per A.D.A. criteria. Hemoglobin (Bld) [Mass/Vol] 10.8 g/dL 12.0-15.0 [facility] Monocytes/100 WBC (Bld) 5.8 % 0-10 [facility] Neutrophils (Bld) [#/Vol] 11.1 10*3/uL 2.0-7.7 [facility] Neutrophils/100 WBC (Bld) 82.0 % 47-70 [facility] Potassium [Moles/Vol] 3.9 mmol/L 3.5-5.1 [facility] Sodium [Moles/Vol] 139 mmol/L 136-145 [facility] WBC (Bld) [#/Vol] 13.6 10*3/uL 4.4-11.0 [facility] Determination of erythrocyte mean corpuscular volume (MCV)Ordered By: Melissa Stinson on 02-07-2024 MCV (RBC) [Entitic vol] 89.7 fL 81-99 [facility] Erythrocyte distribution wid th ratioOrdered By: [facility] on 02-07-2024 Erythrocyte distribution width (RBC) [Ratio] 16.2 % 11.6-14.6 [facility] Erythrocyte distribution wid th standard deviationOrdered By: [facility] on 02-07-2024 Erythrocyte distribution width (RBC) [Entitic vol] 53.4 fL 35.1-43.9 [facility] Hematocrit Auto (Bld) [Volum e fraction]Ordered By: [facility] on 02-07-2024 Hematocrit (Bld) [Volume fraction] 34.0 % 37-47 [facility] Immature granulocytes/100 WB C Auto (Bld)Ordered By: [facility] on 02-07-2024 Immature granulocytes/100 WBC (Bld) 0.700 % 0.0-0.9 [facility] Comment on above: IG% - Immature Granu locytes (promyelocytes, myelocytes and metamyelocytes) > 1% indicates that a LEFT SHIFT is Present. Laboratory - Chemistry and C hemistry - challengeOrdered By: [facility] on 02-07-2024 CO2 [Moles/Vol] 26.0 mmol/L 21.0-32.0 [facility] Urea nitrogen/Creatinine [Mass ratio] 12.8 mg/mg 10-20 [facility] Laboratory - Hematology and Cell countsOrdered By: [facility] on 02-07-2024 MCH (RBC) [Entitic mass] 28.5 pg 27.0-32.0 [facility] MCHC (RBC) [Mass/Vol] 31.8 g/dL 32-36 [facility] Nucleated RBC/100 WBC (Bld) [Ratio] 0 % 0-5 [facility] Platelet mean volume (Bld) [Entitic vol] 10.0 fL 6.2-12.0 [facility] Platelets (Bld) [#/Vol] 351 10*3/uL 150-450 [facility] No Panel InformationOrdered By: Melissa Stinson on 02-07-2024 Estimated Creatinine Clearance Calc 58.90 ml/min [facility] Estimated GFR (MDRD) Amer 143 mL/min >60 [facility] Comment on above: GFR Calc Estimated GFR (MDRD) Non-Af Amer 118 mL/min >60 [facility] Comment on above: Non- GFR Calc RBC Auto (Bld) [#/Vol]Ordere d By: Melissa Stinson on 02-07-2024 RBC (Bld) [#/Vol] 3.79 10*6/uL 4.2-5.4 [facility] Serum or plasma calcium teddy urement (mass/volume)Ordered By: Melissa Stinson on 02-07-2024 Calcium [Mass/Vol] 8.7 mg/dL 8.5-10.1 [facility] Serum or plasma creatinine m easurement (mass/volume)Ordered By: Melissa Stinson on 02-07-2024 Creatinine [Mass/Vol] 0.54 mg/dL 0.55-1.02 [facility] Comment on above: The validity of the calculated GFR & GFRAA in patients over 70 years has not been determined. Clinical correlation is essential. Serum or plasma urea nitroge n measurement (mass/volume)Ordered By: Melissa Stinson on 02-07-2024 Urea nitrogen [Mass/Vol] 7 mg/dL 7-18 [facility] Thin prep Papanicolaou smear with manual screeningOrdered By: Melissa Stinson on 02-07-2024 Thin prep Papanicolaou smear with manual screening 4 5-15 [facility] Absolute lymphocyte countOrd ered By: Jose Garzon on 01-28-2024 Lymphocytes Auto (Unsp spec) [#/Vol] 1.94 10*3/uL 0.83-4.51 [facility] Automated lymphocyte count a s percentage of total leukocytesOrdered By: Jose Garzon on 01-28-2024 Lymphocytes/100 WBC Auto (Unsp spec) 21.1 % 19-41 [facility] Basophil percentageOrdered B y: Jose Garzon on 01-28-2024 Basophil percentage 0-5 SEEN /hpf 0-5 [facility] Basophils/100 WBC (Bld) 0.7 % 0-1 [facility] Bilirubin [Mass/Vol] 0.30 mg/dL 0.20-1.00 [facility] Comment on above: For patients on eltr ombopag therapy, use of Dimension Marble TBIL is not recommended. Chloride [Moles/Vol] 107 mmol/L 98-107 [facility] Cholesterol [Mass/Vol] 184 mg/dL <200 [facility] Comment on above: <200 mg/dL Desirable 200-240 mg/dL Borderline >240 mg/dL High Risk Eosinophils/100 WBC (Bld) 1.3 % 0-5 [facility] Glucose [Mass/Vol] 104 mg/dL 74-106 [facility] Comment on above: Fasting Glucose resu lt from 100 to 125 mg/dL suggests IMPAIRED HOMEOSTASIS per A.D.A. criteria. Hemoglobin (Bld) [Mass/Vol] 11.9 g/dL 12.0-15.0 [facility] Monocytes/100 WBC (Bld) 6.2 % 0-10 [facility] Neutrophils (Bld) [#/Vol] 6.5 10*3/uL 2.0-7.7 [facility] Neutrophils/100 WBC (Bld) 70.3 % 47-70 [facility] Potassium [Moles/Vol] 4.1 mmol/L 3.5-5.1 [facility] Protein [Mass/Vol] 7.2 g/dL 6.4-8.2 [facility] Sodium [Moles/Vol] 139 mmol/L 136-145 [facility] Triglyceride [Mass/Vol] 88 mg/dL <199 [facility] Comment on above: The drugs N-Acetylcy steine and Metamizole may falsely depress this assay.Serum Triglycerides Reference Interval Normal <150 mg/dL Borderline high 150 - 199 mg/dL High 200 - 499 mg/dL Very High > or = 500 mg/dL WBC (Bld) [#/Vol] 9.2 10*3/uL 4.4-11.0 [facility] Bilirubin Test strip Ql (U)O rdered By: Jose Garzon on 01-28-2024 Bilirubin Ql (U) Negative Negative [facility] Determination of erythrocyte mean corpuscular volume (MCV)Ordered By: Jose Garzon on 01-28-2024 MCV (RBC) [Entitic vol] 89.6 fL 81-99 [facility] Erythrocyte distribution wid th ratioOrdered By: Jose Garzon on 01-28-2024 Erythrocyte distribution width (RBC) [Ratio] 16.1 % 11.6-14.6 [facility] Erythrocyte distribution wid th standard deviationOrdered By: Jose Garzon on 01-28-2024 Erythrocyte distribution width (RBC) [Entitic vol] 52.9 fL 35.1-43.9 [facility] Hematocrit Auto (Bld) [Volum e fraction]Ordered By: Jose Garzon on 01-28-2024 Hematocrit (Bld) [Volume fraction] 37.8 % 37-47 [facility] Immature granulocytes/100 WB C Auto (Bld)Ordered By: Jose Garzon on 01-28-2024 Immature granulocytes/100 WBC (Bld) 0.400 % 0.0-0.9 [facility] Comment on above: IG% - Immature Granu locytes (promyelocytes, myelocytes and metamyelocytes) > 1% indicates that a LEFT SHIFT is Present. Ketones Test strip Ql (U)Ord ered By: Jose Garzon on 01-28-2024 Ketones Ql (U) Negative Negative [facility] Laboratory - Chemistry and C hemistry - challengeOrdered By: Jose Garzon on 01-28-2024 Albumin/Globulin [Mass ratio] 1.1 {ratio} 0.9-2.4 [facility] ALP [Catalytic activity/Vol] 74 U/L 45-117 [facility] ALT [Catalytic activity/Vol] 29 U/L 13-56 [facility] Cholesterol in HDL [Mass/Vol] 58 mg/dL >40 [facility] Comment on above: The drugs N-Acetylcy steine and Metamizole may falsely depress this assay. Reference Range HDL <40 mg/dL Low HDL Cholesterol HDL >or= 60 mg/dL High HDL Cholesterol Cholesterol in LDL [Mass/Vol] 108 mg/dL 0-130 [facility] CO2 [Moles/Vol] 26.0 mmol/L 21.0-32.0 [facility] Globulin (S) [Mass/Vol] 3.5 g/dL 2.2-4.2 [facility] Magnesium [Mass/Vol] 2.1 mg/dL 1.6-2.6 [facility] Urea nitrogen/Creatinine [Mass ratio] 19.4 mg/mg 10-20 [facility] Laboratory - Hematology and Cell countsOrdered By: Jose Garzon on 01-28-2024 MCH (RBC) [Entitic mass] 28.2 pg 27.0-32.0 [facility] MCHC (RBC) [Mass/Vol] 31.5 g/dL 32-36 [facility] Nucleated RBC/100 WBC (Bld) [Ratio] 0 % 0- [facility] Platelet mean volume (Bld) [Entitic vol] 9.9 fL 6.2-12.0 [facility] Platelets (Bld) [#/Vol] 407 10*3/uL 150-450 [facility] Mucus LM Ql (Urine sed)Order ed By: Jose Garzon on 01-28-2024 Mucus Ql (Urine sed) 0 SEEN /hpf [facility] Nitrite Test strip Ql (U)Ord ered By: Jose Garzon on 01-28-2024 Nitrite Ql (U) Negative Negative [facility] No Panel InformationOrdered By: Jose Garzon on 01-28-2024 Estimated GFR (MDRD) Amer 89 mL/min >60 [facility] Comment on above: GFR Calc Estimated GFR (MDRD) Non-Af Amer 73 mL/min >60 [facility] Comment on above: Non- GFR Calc Urine RBC 0 SEEN /hpf 0-5 [facility] Vitamin D 25-Hydroxy 51.6 ng/mL [facility] Comment on above: Vitamin D 25(OH) Sta tus Range Deficiency <20 ng/mL (50nmol/L) Insufficiency 20 - 30 ng/mL (50 - 75 nmol/L) Sufficiency 30 - 100 ng/mL (75 - 250 nmol/L) Toxicity >100 ng/mL (>250 nmol/L) VLDL Cholesterol 18 mg/dL 5-40 [facility] Protein Test strip Ql (U)Ord ered By: Jose Garzon on 01-28-2024 Protein Ql (U) Negative Negative [facility] RBC Auto (Bld) [#/Vol]Ordere d By: Jose Garzon on 01-28-2024 RBC (Bld) [#/Vol] 4.22 10*6/uL 4.2-5.4 [facility] Serum or plasma calcium teddy urement (mass/volume)Ordered By: Jsoe Garzon on 01-28-2024 Calcium [Mass/Vol] 9.4 mg/dL 8.5-10.1 [facility] Serum or plasma creatinine m easurement (mass/volume)Ordered By: Jose Garzon on 01-28-2024 Creatinine [Mass/Vol] 0.82 mg/dL 0.55-1.02 [facility] Comment on above: The validity of the calculated GFR & GFRAA in patients over 70 years has not been determined. Clinical correlation is essential. Serum or plasma thyroid stim ulating hormone (TSH) measurement (units/volume)Ordered By: Jose Garzon on 01-28-2024 TSH Qn 0.81 uIU/mL 0.358-3.74 [facility] Serum or plasma urea nitroge n measurement (mass/volume)Ordered By: Jose Garzon on 01-28-2024 Urea nitrogen [Mass/Vol] 16 mg/dL 7-18 [facility] Squamous epithelial cells de tection in urine sediment by light microscopyOrdered By: Jose Garzon on 01-28-2024 Epithelial cells.squamous LM Ql (Urine sed) 0-5 SEEN /hpf 5-10 [facility] Thin prep Papanicolaou smear with manual screeningOrdered By: Jose Garzon on 01-28-2024 Thin prep Papanicolaou smear with manual screening 3.7 g/dL 3.2-5.0 [facility] Thin prep Papanicolaou smear with manual screening 21 U/L 15-37 [facility] Thin prep Papanicolaou smear with manual screening 6 5-15 [facility] Urine blood detectionOrdered By: Jose Garzon on 01-28-2024 RBC Ql (U) 10 /ul Negative [facility] Urine clarityOrdered By: Jcarlos Garzon on 01-28-2024 Clarity (U) Clear Clear [facility] Urine color determinationOrd ered By: Jose Garzon on 01-28-2024 Color (U) Yellow Yellow [facility] Urine glucose detectionOrder ed By: Jose Garzon on 01-28-2024 Glucose Ql (U) Normal mg/dl Normal [facility] Urine leukocyte esterase det ection by dipstickOrdered By: Jose Garzon on 01-28-2024 Leukocyte esterase Test strip Ql (U) 25 /ul Negative [facility] Urine pHOrdered By: Jose meza on 01-28-2024 pH (U) 6.0 [pH] 5.0 - 8.0 [facility] Urine sediment bacteria coun t by microscopy (number/high power field)Ordered By: Jose Garzon on 01-28-2024 Bacteria LM.HPF (Urine sed) [#/Area] 0 /[HPF] None Seen [facility] Urine specific gravity measu rementOrdered By: Jose Garzon on 01-28-2024 Specific gravity (U) [Rel density] 1.015 1.002-1.03 0 [facility] Urine urobilinogen measureme ntOrdered By: Jose Garzon on 01-28-2024 Urobilinogen Ql (U) Normal mg/dl Normal [facility] Laboratory - Microbiology an d Antimicrobial susceptibilityOrdered By: Jadon Grant on 12-28-2023 SARS-CoV-2 (COVID-19) RNA LATONIA+probe Ql (Unsp spec) [facility] Basophil percentageOrdered B y: Melissa Stinson on 12-17-2023 Basophil percentage < 1.0 mg/dL 0.55-1.02 [facility] No Panel InformationOrdered By: Melissa Stinson on 12-17-2023 Bedside Estimated GFR (eGFR) > 60.0000 mL/min >60 [facility] Absolute lymphocyte countOrd ered By: Dillan Cristina on 12-15-2023 Lymphocytes Auto (Unsp spec) [#/Vol] 2.23 10*3/uL 0.83-4.51 [facility] Automated lymphocyte count a s percentage of total leukocytesOrdered By: Dillan Cristina on 12-15-2023 Lymphocytes/100 WBC Auto (Unsp spec) 35.7 % 19-41 [facility] Basophil percentageOrdered B y: Dillan Cristina on 12-15-2023 Basophils/100 WBC (Bld) 1.0 % 0-1 [facility] Bilirubin [Mass/Vol] 0.30 mg/dL 0.20-1.00 [facility] Comment on above: For patients on eltr ombopag therapy, use of Dimension Marble TBIL is not recommended. Chloride [Moles/Vol] 109 mmol/L 98-107 [facility] Eosinophils/100 WBC (Bld) 0.5 % 0-5 [facility] Glucose [Mass/Vol] 113 mg/dL 74-106 [facility] Comment on above: Fasting Glucose resu lt from 100 to 125 mg/dL suggests IMPAIRED HOMEOSTASIS per A.D.A. criteria. Hemoglobin (Bld) [Mass/Vol] 12.5 g/dL 12.0-15.0 [facility] Monocytes/100 WBC (Bld) 6.9 % 0-10 [facility] Neutrophils (Bld) [#/Vol] 3.5 10*3/uL 2.0-7.7 [facility] Neutrophils/100 WBC (Bld) 55.7 % 47-70 [facility] Potassium [Moles/Vol] 4.3 mmol/L 3.5-5.1 [facility] Protein [Mass/Vol] 7.5 g/dL 6.4-8.2 [facility] Sodium [Moles/Vol] 138 mmol/L 136-145 [facility] WBC (Bld) [#/Vol] 6.3 10*3/uL 4.4-11.0 [facility] Determination of erythrocyte mean corpuscular volume (MCV)Ordered By: Dillan Cristina on 12-15-2023 MCV (RBC) [Entitic vol] 87.8 fL 81-99 [facility] Erythrocyte distribution wid th ratioOrdered By: Dillan Cristina on 12-15-2023 Erythrocyte distribution width (RBC) [Ratio] 16.0 % 11.6-14.6 [facility] Erythrocyte distribution wid th standard deviationOrdered By: Dillan Cristina on 12-15-2023 Erythrocyte distribution width (RBC) [Entitic vol] 51.6 fL 35.1-43.9 [facility] Hematocrit Auto (Bld) [Volum e fraction]Or[facility] on 12-15-2023 Hematocrit (Bld) [Volume fraction] 39.4 % 37-47 [facility] Immature granulocytes/100 WB C Auto (Bld)Ordered By: [facility] Ibteh on 12-15-2023 Immature granulocytes/100 WBC (Bld) 0.200 % 0.0-0.9 [facility] Comment on above: IG% - Immature Granu locytes (promyelocytes, myelocytes and metamyelocytes) > 1% indicates that a LEFT SHIFT is Present. Laboratory - Chemistry and C hemistry - challengeOrdered By: [facility] Ibeth on 12-15-2023 Albumin/Globulin [Mass ratio] 1.4 {ratio} 0.9-2.4 [facility] ALP [Catalytic activity/Vol] 64 U/L 45-117 [facility] ALT [Catalytic activity/Vol] 23 U/L 13-56 [facility] CO2 [Moles/Vol] 27.0 mmol/L 21.0-32.0 [facility] Globulin (S) [Mass/Vol] 3.1 g/dL 2.2-4.2 [facility] Urea nitrogen/Creatinine [Mass ratio] 16.0 mg/mg 10-20 [facility] Laboratory - Hematology and Cell countsOrdered By: [facility] on 12-15-2023 MCH (RBC) [Entitic mass] 27.8 pg 27.0-32.0 [facility] MCHC (RBC) [Mass/Vol] 31.7 g/dL 32-36 [facility] Nucleated RBC/100 WBC (Bld) [Ratio] 0 % 0-5 [facility] Platelet mean volume (Bld) [Entitic vol] 9.4 fL 6.2-12.0 [facility] Platelets (Bld) [#/Vol] 374 10*3/uL 150-450 [facility] No Panel InformationOrdered By: Dillan Cristina on 12-15-2023 Estimated GFR (MDRD) Amer 110 mL/min >60 [facility] Comment on above: GFR Calc Estimated GFR (MDRD) Non-Af Amer 91 mL/min >60 [facility] Comment on above: Non- GFR Calc Miscellaneous Test Comment SEE SCANNED REPORT [facility] RBC Auto (Bld) [#/Vol]Ordere d By: Dillan Cristina on 12-15-2023 RBC (Bld) [#/Vol] 4.49 10*6/uL 4.2-5.4 [facility] Serum or plasma calcium teddy urement (mass/volume)Ordered By: Dillan Cristina on 12-15-2023 Calcium [Mass/Vol] 9.7 mg/dL 8.5-10.1 [facility] Serum or plasma creatinine m easurement (mass/volume)Ordered By: Dillan Cristina on 12-15-2023 Creatinine [Mass/Vol] 0.69 mg/dL 0.55-1.02 [facility] Comment on above: The validity of the calculated GFR & GFRAA in patients over 70 years has not been determined. Clinical correlation is essential. Serum or plasma urea nitroge n measurement (mass/volume)Ordered By: Dillan Cristina on 12-15-2023 Urea nitrogen [Mass/Vol] 11 mg/dL 7-18 [facility] Thin prep Papanicolaou smear with manual screeningOrdered By: Dillan Cristina on 12-15-2023 Thin prep Papanicolaou smear with manual screening 4.4 g/dL 3.2-5.0 [facility] Thin prep Papanicolaou smear with manual screening 16 U/L 15-37 [facility] Thin prep Papanicolaou smear with manual screening 2 5-15 [facility] Absolute lymphocyte countOrd ered By: Harrison Contreras on 10-26-2023 Lymphocytes Auto (Unsp spec) [#/Vol] 0.69 10*3/uL 0.83-4.51 [facility] Basophil percentageOrdered B y: Harrison Contreras on 10-26-2023 Basophils/100 WBC (Bld) 0.2 % 0-1 [facility] Chloride [Moles/Vol] 107 mmol/L 98-107 [facility] Eosinophils/100 WBC (Bld) 0.3 % 0-5 [facility] Glucose [Mass/Vol] 107 mg/dL 74-106 [facility] Comment on above: Fasting Glucose resu lt from 100 to 125 mg/dL suggests IMPAIRED HOMEOSTASIS per A.D.A. criteria. Neutrophils (Bld) [#/Vol] 15.9 10*3/uL 2.0-7.7 [facility] Neutrophils/100 WBC (Bld) 92.2 % 47-70 [facility] Potassium [Moles/Vol] 3.5 mmol/L 3.5-5.1 [facility] Sodium [Moles/Vol] 137 mmol/L 136-145 [facility] WBC (Bld) [#/Vol] 17.2 10*3/uL 4.4-11.0 [facility] Basophil percentage 0-5 SEEN /hpf 0-5 [facility] Bilirubin Test strip Ql (U)O rdered By: Harrison Contreras on 10-26-2023 Bilirubin Ql (U) 1 mg/dL Negative [facility] Comment on above: COLOR OF URINE MAY A FFECT DIPSTICK RESULTS. Blood erythrocytes count (nu mber/volume)Ordered By: Harrison Contreras on 10-26-2023 RBC (Bld) [#/Vol] 4.32 10*6/uL 4.2-5.4 [facility] Blood hemoglobin measurement (mass/volume)Ordered By: Harrison Contreras on 10-26-2023 Hemoglobin (Bld) [Mass/Vol] 12.5 g/dL 12.0-15.0 [facility] Blood lymphocytes/100 leukoc ytesOrdered By: Harrison Contreras on 10-26-2023 Lymphocytes/100 WBC (Bld) 4.0 % 19-41 [facility] Blood monocytes/100 leukocyt esOrdered By: Hrarison Contreras on 10-26-2023 Monocytes/100 WBC (Bld) 3.0 % 0-10 [facility] Blood platelet mean volumeOr dered By: Harrison Contreras on 10-26-2023 Platelet mean volume (Bld) [Entitic vol] 9.7 fL 6.2-12.0 [facility] Determination of erythrocyte mean corpuscular volume (MCV)Ordered By: Harrison Contreras on 10-26-2023 MCV (RBC) [Entitic vol] 87.3 fL 81-99 [facility] Hematocrit Auto (Bld) [Volum e fraction]Ordered By: Harrison Contreras on 10-26-2023 Hematocrit (Bld) [Volume fraction] 37.7 % 37-47 [facility] Ketones Test strip Ql (U)Ord ered By: Harrison Contreras on 10-26-2023 Ketones Ql (U) Negative Negative [facility] Laboratory - Chemistry and C hemistry - challengeOrdered By: Harrison Contreras on 10-26-2023 CO2 [Moles/Vol] 23.0 mmol/L 21.0-32.0 [facility] Urea nitrogen/Creatinine [Mass ratio] 15.5 mg/mg 10-20 [facility] Laboratory - Hematology and Cell countsOrdered By: Harrison Contreras on 10-26-2023 Erythrocyte distribution width (RBC) [Entitic vol] 47.7 fL 35.1-43.9 [facility] Erythrocyte distribution width (RBC) [Ratio] 14.8 % 11.6-14.6 [facility] Immature granulocytes/100 WBC (Bld) 0.300 % 0.0-0.9 [facility] Comment on above: IG% - Immature Granu locytes (promyelocytes, myelocytes and metamyelocytes) > 1% indicates that a LEFT SHIFT is Present. MCH (RBC) [Entitic mass] 28.9 pg 27.0-32.0 [facility] Nucleated RBC/100 WBC (Bld) [Ratio] 0 % 0-5 [facility] Laboratory - Microbiology an d Antimicrobial susceptibilityOrdered By: Harrison Contreras on 10-26-2023 Bacteria identified Cx Nom (Bld) No growth in 5 days. [facility] SARS-CoV-2 (COVID-19) RNA LATONIA+probe Ql (Unsp spec) [facility] Bacteria identified Cx Nom (Bld) No growth in 5 days. [facility] SARS-CoV-2 (COVID-19) RNA LATONIA+probe Ql (Unsp spec) [facility] MCHC Auto (RBC) [Mass/Vol]Or dered By: [facility] Contreras on 10-26-2023 MCHC (RBC) [Mass/Vol] 33.2 g/dL 32-36 [facility] Mucus LM Ql (Urine sed)Order ed By: Harrison Contreras on 10-26-2023 Mucus Ql (Urine sed) 0 SEEN /hpf [facility] Nitrite Test strip Ql (U)Ord ered By: [facility] Contreras on 10-26-2023 Nitrite Ql (U) Negative Negative [facility] No Panel InformationOrdered By: [facility]re[facility] on 10-26-2023 Estimated Creatinine Clearance Calc 47.97 ml/min [facility] Estimated GFR (MDRD) Amer 80 mL/min >60 [facility] Comment on above: GFR Calc Estimated GFR (MDRD) Non-Af Amer 66 mL/min >60 [facility] Comment on above: Non- GFR Calc Platelets bldOrdered By: Barbara Contreras on 10-26-2023 Platelets (Bld) [#/Vol] 299 10*3/uL 150-450 [facility] Protein Test strip Ql (U)Ord ered By: [facility] Contreras on 10-26-2023 Protein Ql (U) 30 mg/dl Negative [facility] Serum or plasma calcium teddy urement (mass/volume)Ordered By: Harrison Contreras on 10-26-2023 Calcium [Mass/Vol] 9.9 mg/dL 8.5-10.1 [facility] Serum or plasma creatinine m easurement (mass/volume)Ordered By: Harrison Contreras on 10-26-2023 Creatinine [Mass/Vol] 0.90 mg/dL 0.55-1.02 [facility] Comment on above: The validity of the calculated GFR & GFRAA in patients over 70 years has not been determined. Clinical correlation is essential. Serum or plasma urea nitroge n measurement (mass/volume)Ordered By: [facility] Contreras on 10-26-2023 Urea nitrogen [Mass/Vol] 14 mg/dL 7-18 [facility] Squamous epithelial cells de tection in urine sediment by light microscopyOrdered By: Harrison Contreras on 10-26-2023 Epithelial cells.squamous LM Ql (Urine sed) 0-5 SEEN /hpf 5-10 [facility] Thin prep Papanicolaou smear with manual screeningOrdered By: Harrison Contreras on 10-26-2023 Thin prep Papanicolaou smear with manual screening 7 5-15 [facility] Urine blood detectionOrdered By: Harrison Contreras on 10-26-2023 RBC Ql (U) 10 /ul Negative [facility] RBC Ql (U) 0 SEEN /hpf 0-5 [facility] Urine clarityOrdered By: Barbara Contreras on 10-26-2023 Clarity (U) Clear Clear [facility] Urine color determinationOrd ered By: Harrison Contreras on 10-26-2023 Color (U) Yellow Yellow [facility] Urine glucose detectionOrder ed By: Harrison Contreras on 10-26-2023 Glucose Ql (U) Normal mg/dl Normal [facility] Urine leukocyte esterase det ection by dipstickOrdered By: Harrison Contreras on 10-26-2023 Leukocyte esterase Test strip Ql (U) 100 /ul Negative [facility] Urine pHOrdered By: Harrison harris on 10-26-2023 pH (U) 5.0 [pH] 5.0 - 8.0 [facility] Urine sediment bacteria coun t by microscopy (number/high power field)Ordered By: Harrison Contreras on 10-26-2023 Bacteria LM.HPF (Urine sed) [#/Area] 0 /[HPF] None Seen [facility] Urine specific gravity measu rementOrdered By: Harrison Contreras on 10-26-2023 Specific gravity (U) [Rel density] 1.025 1.002-1.03 0 [facility] Urobilinogen Auto test strip Ql (U)Ordered By: Harrison Contreras on 10-26-2023 Urobilinogen Ql (U) Normal mg/dl Normal [facility] CT LUMBAR W/O CONTRASTon CT LUMBAR W/O CONTRAST [address] [address] Patient: MARY COLON Phone#: : [phone] Age: 68 Gender: F Pt. Type: ER Account: [id number] Location: 052 Ordering: DR. IFEOMA SORIA Exam Date: 10/11/2023/15:59 Family Phys: JOSE GARZON Charge Code: 110758 Physician: [place] Order #: [id number] Dose#: 16.2 mGy PROCEDURE: CT LUMBAR SPINE [...] 68 Gender: F Pt. Type: ER Account: [id number] Location: 052 Ordering: DR. IFEOMA SORIA Exam Date: 10/11/2023/15:59 Family Phys: JOSE GARZON Charge Code: 224539 Physician: [place] Order #: [id number] Dose#: 16.2 mGy CONCLUSION: 1. T12 anterior [...] Polk MD on 10/11/2023 at 16:36 Normal [facility] Absolute lymphocyte countOrd ered By: Jose Belkys on 07-18-2023 Lymphocytes Auto (Unsp spec) [#/Vol] 2.18 10*3/uL 0.83-4.51 [facility] Basophil percentageOrdered B y: Jose Garzon on 07-18-2023 Basophil percentage 0 SEEN /hpf 0-5 [facility] Basophils/100 WBC (Bld) 0.7 % 0-1 [facility] Bilirubin [Mass/Vol] 0.20 mg/dL 0.20-1.00 [facility] Comment on above: For patients on eltr ombopag therapy, use of Dimension Marble TBIL is not recommended. Chloride [Moles/Vol] 107 mmol/L 98-107 [facility] Cholesterol [Mass/Vol] 158 mg/dL <200 [facility] Comment on above: <200 mg/dL Desirable 200-240 mg/dL Borderline >240 mg/dL High Risk Eosinophils/100 WBC (Bld) 2.9 % 0-5 [facility] Glucose [Mass/Vol] 102 mg/dL 74-106 [facility] Comment on above: Fasting Glucose resu lt from 100 to 125 mg/dL suggests IMPAIRED HOMEOSTASIS per A.D.A. criteria. Neutrophils (Bld) [#/Vol] 5.2 10*3/uL 2.0-7.7 [facility] Neutrophils/100 WBC (Bld) 63.4 % 47-70 [facility] Potassium [Moles/Vol] 3.9 mmol/L 3.5-5.1 [facility] Protein [Mass/Vol] 7.0 g/dL 6.4-8.2 [facility] Sodium [Moles/Vol] 139 mmol/L 136-145 [facility] Triglyceride [Mass/Vol] 107 mg/dL <199 [facility] Comment on above: The drugs N-Acetylcy steine and Metamizole may falsely depress this assay.Serum Triglycerides Reference Interval Normal <150 mg/dL Borderline high 150 - 199 mg/dL High 200 - 499 mg/dL Very High > or = 500 mg/dL WBC (Bld) [#/Vol] 8.2 10*3/uL 4.4-11.0 [facility] Bilirubin Test strip Ql (U)O rdered By: Jose Garzon on 07-18-2023 Bilirubin Ql (U) 1 mg/dL Negative [facility] Comment on above: COLOR OF URINE MAY A FFECT DIPSTICK RESULTS. Blood erythrocytes count (nu mber/volume)Ordered By: Jose Garzon on 07-18-2023 RBC (Bld) [#/Vol] 4.04 10*6/uL 4.2-5.4 [facility] Blood hemoglobin measurement (mass/volume)Ordered By: Jose Garzon on 07-18-2023 Hemoglobin (Bld) [Mass/Vol] 11.5 g/dL 12.0-15.0 [facility] Blood lymphocytes/100 leukoc ytesOrdered By: Jose Garzon on 07-18-2023 Lymphocytes/100 WBC (Bld) 26.7 % 19-41 [facility] Blood monocytes/100 leukocyt esOrdered By: Jose Garzon on 07-18-2023 Monocytes/100 WBC (Bld) 6.1 % 0-10 [facility] Blood platelet mean volumeOr dered By: Jose Garzon on 07-18-2023 Platelet mean volume (Bld) [Entitic vol] 10.0 fL 6.2-12.0 [facility] Determination of erythrocyte mean corpuscular volume (MCV)Ordered By: Jose Garzon on 07-18-2023 MCV (RBC) [Entitic vol] 90.6 fL 81-99 [facility] Hematocrit Auto (Bld) [Volum e fraction]Ordered By: Jose Garzon on 07-18-2023 Hematocrit (Bld) [Volume fraction] 36.6 % 37-47 [facility] [facility] Ketones Test strip Ql (U)Ord ered By: Jose Garzon on 07-18-2023 Ketones Ql (U) Negative Negative [facility] Laboratory - Chemistry and C hemistry - challengeOrdered By: Jose Garzon on 07-18-2023 ALP [Catalytic activity/Vol] 78 U/L 45-117 [facility] ALT [Catalytic activity/Vol] 31 U/L 13-56 [facility] CO2 [Moles/Vol] 29.0 mmol/L 21.0-32.0 [facility] Globulin (S) [Mass/Vol] 3.5 g/dL 2.2-4.2 [facility] Urea nitrogen/Creatinine [Mass ratio] 16.0 mg/mg 10-20 [facility] Laboratory - Hematology and Cell countsOrdered By: Jose Garzon on 07-18-2023 Erythrocyte distribution width (RBC) [Entitic vol] 49.0 fL 35.1-43.9 [facility] Erythrocyte distribution width (RBC) [Ratio] 14.6 % 11.6-14.6 [facility] Immature granulocytes/100 WBC (Bld) 0.200 % 0.0-0.9 [facility] Comment on above: IG% - Immature Granu locytes (promyelocytes, myelocytes and metamyelocytes) > 1% indicates that a LEFT SHIFT is Present. MCH (RBC) [Entitic mass] 28.5 pg 27.0-32.0 [facility] Nucleated RBC/100 WBC (Bld) [Ratio] 0 % 0-5 [facility] MCHC Auto (RBC) [Mass/Vol]Or dered By: Jose Garzon on 07-18-2023 MCHC (RBC) [Mass/Vol] 31.4 g/dL 32-36 [facility] Mucus LM Ql (Urine sed)Order ed By: Jose Garzon on 07-18-2023 Mucus Ql (Urine sed) 0 SEEN /hpf [facility] Nitrite Test strip Ql (U)Ord ered By: Jose Garzon on 07-18-2023 Nitrite Ql (U) Negative Negative [facility] No Panel InformationOrdered By: Jose Garzon on 07-18-2023 Estimated GFR (MDRD) Amer 99 mL/min >60 [facility] Comment on above: GFR Calc Estimated GFR (MDRD) Non-Af Amer 82 mL/min >60 [facility] Comment on above: Non- GFR Calc Thyroid Stimulating Hormone (TSH) 1.08 uIU/mL 0.358-3.74 [facility] Vitamin D 25-Hydroxy 44.4 ng/mL [facility] Comment on above: Vitamin D 25(OH) Sta tus Range Deficiency <20 ng/mL (50nmol/L) Insufficiency 20 - 30 ng/mL (50 - 75 nmol/L) Sufficiency 30 - 100 ng/mL (75 - 250 nmol/L) Toxicity >100 ng/mL (>250 nmol/L) Platelets bldOrdered By: Jcarlos Garzon on 07-18-2023 Platelets (Bld) [#/Vol] 370 10*3/uL 150-450 [facility] Protein Test strip Ql (U)Ord ered By: Jose Garzon on 07-18-2023 Protein Ql (U) 15 mg/dl Negative [facility] Serum or plasma albumin teddy urement (mass/volume)Ordered By: Jose Garzon on 07-18-2023 Albumin [Mass/Vol] 3.5 g/dL 3.2-5.0 [facility] Serum or plasma albumin/glob ulin mass ratioOrdered By: Jose Garzon on 07-18-2023 Albumin/Globulin [Mass ratio] 1.0 {ratio} 0.9-2.4 [facility] Serum or plasma calcium teddy urement (mass/volume)Ordered By: Jose Garzon on 07-18-2023 Calcium [Mass/Vol] 8.8 mg/dL 8.5-10.1 [facility] Serum or plasma cholesterol in HDL measurement (mass/volume)Ordered By: Jose Garzon on 07-18-2023 Cholesterol in HDL [Mass/Vol] 49 mg/dL >40 [facility] Comment on above: The drugs N-Acetylcy steine and Metamizole may falsely depress this assay. Reference Range HDL <40 mg/dL Low HDL Cholesterol HDL >or= 60 mg/dL High HDL Cholesterol Serum or plasma cholesterol in VLDL measurement (mass/volume)Ordered By: Jose Garzon on 07-18-2023 Cholesterol in VLDL [Mass/Vol] 21 mg/dL 5-40 [facility] Serum or plasma creatinine m easurement (mass/volume)Ordered By: Jose Garzon on 07-18-2023 Creatinine [Mass/Vol] 0.75 mg/dL 0.55-1.02 [facility] Comment on above: The validity of the calculated GFR & GFRAA in patients over 70 years has not been determined. Clinical correlation is essential. Serum or plasma low density lipoprotein (LDL) cholesterol measurement (mass/volume)Ordered By: Jose Garzon on 07-18-2023 Cholesterol in LDL [Mass/Vol] 88 mg/dL 0-130 [facility] Serum or plasma urea nitroge n measurement (mass/volume)Ordered By: Jose Garzon on 07-18-2023 Urea nitrogen [Mass/Vol] 12 mg/dL 7-18 [facility] Squamous epithelial cells de tection in urine sediment by light microscopyOrdered By: Jose Garzon on 07-18-2023 Epithelial cells.squamous LM Ql (Urine sed) 0-5 SEEN /hpf 5-10 [facility] Thin prep Papanicolaou smear with manual screeningOrdered By: Jose Garzon on 07-18-2023 Thin prep Papanicolaou smear with manual screening 19 U/L 15-37 [facility] Thin prep Papanicolaou smear with manual screening 3 5-15 [facility] Urine blood detectionOrdered By: Jose Garzon on 07-18-2023 RBC Ql (U) 10 /ul Negative [facility] RBC Ql (U) 0 SEEN /hpf 0-5 [facility] Urine clarityOrdered By: Jcarlos Garzon on 07-18-2023 Clarity (U) Clear Clear [facility] Urine color determinationOrd ered By: Jose Garzon on 07-18-2023 Color (U) Yellow Yellow [facility] Urine glucose detectionOrder ed By: Jose Garzon on 07-18-2023 Glucose Ql (U) Normal mg/dl Normal [facility] Urine leukocyte esterase det ection by dipstickOrdered By: Jose Garzon on 07-18-2023 Leukocyte esterase Test strip Ql (U) 100 /ul Negative [facility] Urine pHOrdered By: Jose meza on 07-18-2023 pH (U) 7.0 [pH] 5.0 - 8.0 [facility] Urine sediment bacteria coun t by microscopy (number/high power field)Ordered By: Jose Garzon on 07-18-2023 Bacteria LM.HPF (Urine sed) [#/Area] 0 /[HPF] None Seen [facility] Urine specific gravity measu rementOrdered By: Jose Garzon on 07-18-2023 Specific gravity (U) [Rel density] 1.010 1.002-1.03 0 [facility] Urobilinogen Auto test strip Ql (U)Ordered By: Jose Garzon on 07-18-2023 Urobilinogen Ql (U) Normal mg/dl Normal [facility] Laboratory - Drug toxicology Ordered By: Jose Garzon on 04-15-2023 Amphetamines Ql (U) Negative <1000 ng/mL [facility] Benzodiazepines Ql (U) Negative < 200 ng/mL [facility] Cannabinoids Screen Ql (U) Negative < 50 ng/mL [facility] Cocaine Ql (U) Negative < 300 ng/mL [facility] Opiates Ql (U) Negative < 300 ng/mL [facility] No Panel InformationOrdered By: Jose Garzon on 04-15-2023 MDMA (Ecstasy) Screen Negative < 500 ng/mL [facility] Miscellaneous Test See comment [facility] Comment on above: TEST RESULT LIMITSTr amadol Negative ng/mL Uloufh=200 TESTING PERFORMED AT [facility]. ORIGINAL REPORT ON FILE IN LAB CONTAINS ADDITIONAL TEST SITE INFORMATION. Urine Barbiturates Screen Negative < 200 ng/mL [facility] Urine Drug Screen Comment [facility] Comment on above: CONFIRMATORY TESTING FOR ALL [...] Urine Methadone Screen Negative < 300 ng/mL [facility] Urine phencyclidine (PCP) de tectionOrdered By: Jose Garzon on 04-15-2023 Phencyclidine Ql (U) Negative < 25 ng/mL [facility] Absolute lymphocyte countOrd ered By: Dr. Garzon on 02-19-2023 Lymphocytes Auto (Unsp spec) [#/Vol] 2.04 10*3/uL 0.83-4.51 [facility] Basophil percentageOrdered B y: Dr. Garzon on 02-19-2023 Basophil percentage 25-50 SEEN /hpf 0-5 [facility] Basophils/100 WBC (Bld) 0.7 % 0-1 [facility] Bilirubin [Mass/Vol] 0.40 mg/dL 0.20-1.00 [facility] Comment on above: For patients on eltr ombopag therapy, use of Dimension Marble TBIL is not recommended. Chloride [Moles/Vol] 108 mmol/L 98-107 [facility] Cholesterol [Mass/Vol] 175 mg/dL <200 [facility] Comment on above: <200 mg/dL Desirable 200-240 mg/dL Borderline >240 mg/dL High Risk Eosinophils/100 WBC (Bld) 1.1 % 0-5 [facility] Glucose [Mass/Vol] 113 mg/dL 74-106 [facility] Comment on above: Fasting Glucose resu lt from 100 to 125 mg/dL suggests IMPAIRED HOMEOSTASIS per A.D.A. criteria. Neutrophils (Bld) [#/Vol] 7.5 10*3/uL 2.0-7.7 [facility] Neutrophils/100 WBC (Bld) 73.6 % 47-70 [facility] Potassium [Moles/Vol] 4.1 mmol/L 3.5-5.1 [facility] Protein [Mass/Vol] 7.1 g/dL 6.4-8.2 [facility] Sodium [Moles/Vol] 140 mmol/L 136-145 [facility] Triglyceride [Mass/Vol] 151 mg/dL <199 [facility] Comment on above: The drugs N-Acetylcy steine and Metamizole may falsely depress this assay.Serum Triglycerides Reference Interval Normal <150 mg/dL Borderline high 150 - 199 mg/dL High 200 - 499 mg/dL Very High > or = 500 mg/dL WBC (Bld) [#/Vol] 10.2 10*3/uL 4.4-11.0 [facility] Bilirubin Test strip Ql (U)O rdered By: Dr. Garzon on 02-19-2023 Bilirubin Ql (U) Negative Negative [facility] Blood erythrocytes count (nu mber/volume)Ordered By: Dr. Garzon on 02-19-2023 RBC (Bld) [#/Vol] 3.94 10*6/uL 4.2-5.4 [facility] Blood hemoglobin measurement (mass/volume)Ordered By: Dr. Garzon on 02-19-2023 Hemoglobin (Bld) [Mass/Vol] 11.9 g/dL 12.0-15.0 [facility] Blood lymphocytes/100 leukoc ytesOrdered By: Dr. Garzon on 02-19-2023 Lymphocytes/100 WBC (Bld) 20.1 % 19-41 [facility] Blood monocytes/100 leukocyt esOrdered By: Dr. Garzon on 02-19-2023 Monocytes/100 WBC (Bld) 4.1 % 0-10 [facility] Blood platelet mean volumeOr dered By: Dr. Garzon on 02-19-2023 Platelet mean volume (Bld) [Entitic vol] 10.4 fL 6.2-12.0 [facility] Determination of erythrocyte mean corpuscular volume (MCV)Ordered By: Dr. Garzon on 02-19-2023 MCV (RBC) [Entitic vol] 96.2 fL 81-99 [facility] Hematocrit Auto (Bld) [Volum e fraction]Ordered By: Dr. Garzon on 02-19-2023 Hematocrit (Bld) [Volume fraction] 37.9 % 37-47 [facility] Iron measurement (mass/mass) Ordered By: Dr. Garzon on 02-19-2023 Iron (Unsp spec) [Mass/Mass] 62 ug/dL 50-170 [facility] Ketones Test strip Ql (U)Ord ered By: Dr. Garzon on 02-19-2023 Ketones Ql (U) Negative Negative [facility] Laboratory - Chemistry and C hemistry - challengeOrdered By: Dr. Garzon on 02-19-2023 Cobalamin (Vitamin B12) [Mass/Vol] 415 pg/mL 211-911 [facility] Transferrin [Mass/Vol] 320 mg/dL 192-364 [facility] Comment on above: Performed at: [address] [id number] Director: Scott Shepherd PhD, Phone: [phone] ALP [Catalytic activity/Vol] 72 U/L 45-117 [facility] ALT [Catalytic activity/Vol] 24 U/L 13-56 [facility] CO2 [Moles/Vol] 25.0 mmol/L 21.0-32.0 [facility] Globulin (S) [Mass/Vol] 3.2 g/dL 2.2-4.2 [facility] Urea nitrogen/Creatinine [Mass ratio] 19.2 mg/mg 10-20 [facility] Laboratory - Hematology and Cell countsOrdered By: Dr. Garzon on 02-19-2023 Erythrocyte distribution width (RBC) [Entitic vol] 49.4 fL 35.1-43.9 [facility] Erythrocyte distribution width (RBC) [Ratio] 14.0 % 11.6-14.6 [facility] Immature granulocytes/100 WBC (Bld) 0.400 % 0.0-0.9 [facility] Comment on above: IG% - Immature Granu locytes (promyelocytes, myelocytes and metamyelocytes) > 1% indicates that a LEFT SHIFT is Present. MCH (RBC) [Entitic mass] 30.2 pg 27.0-32.0 [facility] Nucleated RBC/100 WBC (Bld) [Ratio] 0 % 0-5 [facility] ([facility]) [Mass/Vol]Or dered By: Dr. Garzon on 02-19-2023 MCHC (RBC) [Mass/Vol] 31.4 g/dL 32-36 [facility] Mucus LM Ql (Urine sed)Order ed By: Dr. Garzon on 02-19-2023 Mucus Ql (Urine sed) 0 SEEN /hpf [facility] Nitrite Test strip Ql (U)Ord ered By: Dr. Garzon on 02-19-2023 Nitrite Ql (U) Negative Negative [facility] No Panel InformationOrdered By: Dr. Garzon on 02-19-2023 Total Iron Binding Capacity 376 ug/dL 250-450 [facility] Estimated GFR (MDRD) Amer 102 mL/min >60 [facility] Comment on above: GFR Calc Estimated GFR (MDRD) Non-Af Amer 85 mL/min >60 [facility] Comment on above: Non- GFR Calc Vitamin D 25-Hydroxy 62.2 ng/mL [facility] Comment on above: Vitamin D 25(OH) Sta tus Range Deficiency <20 ng/mL (50nmol/L) Insufficiency 20 - 30 ng/mL (50 - 75 nmol/L) Sufficiency 30 - 100 ng/mL (75 - 250 nmol/L) Toxicity >100 ng/mL (>250 nmol/L) Platelets bldOrdered By: Dr. Garzon on 02-19-2023 Platelets (Bld) [#/Vol] 367 10*3/uL 150-450 [facility] Protein Test strip Ql (U)Ord ered By: Dr. Garzon on 02-19-2023 Protein Ql (U) Negative Negative [facility] Serum or plasma albumin teddy urement (mass/volume)Ordered By: Dr. Garzon on 02-19-2023 Albumin [Mass/Vol] 3.9 g/dL 3.2-5.0 [facility] Serum or plasma albumin/glob ulin mass ratioOrdered By: Dr. Garzon on 02-19-2023 Albumin/Globulin [Mass ratio] 1.2 {ratio} 0.9-2.4 [facility] Serum or plasma calcium teddy urement (mass/volume)Ordered By: Dr. Garzon on 02-19-2023 Calcium [Mass/Vol] 9.1 mg/dL 8.5-10.1 [facility] Serum or plasma cholesterol in HDL measurement (mass/volume)Ordered By: Dr. Garzon on 02-19-2023 Cholesterol in HDL [Mass/Vol] 49 mg/dL >40 [facility] Comment on above: The drugs N-Acetylcy steine and Metamizole may falsely depress this assay. Reference Range HDL <40 mg/dL Low HDL Cholesterol HDL >or= 60 mg/dL High HDL Cholesterol Serum or plasma cholesterol in VLDL measurement (mass/volume)Ordered By: Dr. Garzon on 02-19-2023 Cholesterol in VLDL [Mass/Vol] 30 mg/dL 5-40 [facility] Serum or plasma creatinine m easurement (mass/volume)Ordered By: Dr. Garzon on 02-19-2023 Creatinine [Mass/Vol] 0.73 mg/dL 0.55-1.02 [facility] Comment on above: The validity of the calculated GFR & GFRAA in patients over 70 years has not been determined. Clinical correlation is essential. Serum or plasma ferritin sakina surement (mass/volume)Ordered By: Dr. Garzon on 02-19-2023 Ferritin [Mass/Vol] 11 ng/mL 8-252 [facility] Serum or plasma iron saturat ion measurement (mass fraction)Ordered By: Dr. Garzon on 02-19-2023 Iron saturation [Mass fraction] 16.5 % 15.0-55.0 [facility] Serum or plasma low density lipoprotein (LDL) cholesterol measurement (mass/volume)Ordered By: Dr. Garzon on 02-19-2023 Cholesterol in LDL [Mass/Vol] 96 mg/dL 0-130 [facility] Serum or plasma urea nitroge n measurement (mass/volume)Ordered By: Dr. Garzon on 02-19-2023 Urea nitrogen [Mass/Vol] 14 mg/dL 7-18 [facility] Squamous epithelial cells de tection in urine sediment by light microscopyOrdered By: Dr. Garzon on 02-19-2023 Epithelial cells.squamous LM Ql (Urine sed) 0-5 SEEN /hpf 5-10 [facility] Thin prep Papanicolaou smear with manual screeningOrdered By: Dr. Garzon on 02-19-2023 Thin prep Papanicolaou smear with manual screening 18 U/L 15-37 [facility] Thin prep Papanicolaou smear with manual screening 7 5-15 [facility] Urine blood detectionOrdered By: Dr. Garzon on 02-19-2023 RBC Ql (U) Negative Negative [facility] RBC Ql (U) 0 SEEN /hpf 0-5 [facility] Urine clarityOrdered By: Dr. Garzon on 02-19-2023 Clarity (U) Sl. Cloudy Clear [facility] Urine color determinationOrd ered By: Dr. Garzon on 02-19-2023 Color (U) Yellow Yellow [facility] Urine glucose detectionOrder ed By: Dr. Garzon on 02-19-2023 Glucose Ql (U) Normal mg/dl Normal [facility] Urine leukocyte esterase det ection by dipstickOrdered By: Dr. Garzon on 02-19-2023 Leukocyte esterase Test strip Ql (U) 500 /ul Negative [facility] Urine pHOrdered By: Dr. Jose chao on 02-19-2023 pH (U) 7.0 [pH] 5.0 - 8.0 [facility] Urine sediment bacteria coun t by microscopy (number/high power field)Ordered By: Dr. Garzon on 02-19-2023 Bacteria LM.HPF (Urine sed) [#/Area] 1 /[HPF] None Seen [facility] Urine specific gravity measu rementOrdered By: Dr. Garzon on 02-19-2023 Specific gravity (U) [Rel density] 1.010 1.002-1.03 0 [facility] Urobilinogen Auto test strip Ql (U)Ordered By: Dr. Garzon on 02-19-2023 Urobilinogen Ql (U) Normal mg/dl Normal [facility] Whole blood hemoglobin A1c/t otal hemoglobin ratio (mass fraction)Ordered By: Dr. Garzon on 02-19-2023 HbA1c (Bld) [Mass fraction] 5.4 % 3.8-5.6 [facility] Comment on above: Normal < 5.7 % Predi abetic 5.7 - 6.4 % Diabetic >or= 6.5 % Please note range changes. Absolute lymphocyte countOrd ered By: Dr. Hanks on 01-07-2023 Lymphocytes Auto (Unsp spec) [#/Vol] 5.97 10*3/uL 0.83-4.51 [facility] Alternaria alternata IgE ser umOrdered By: Dr. Hanks on 01-07-2023 A. alternata IgE Qn (S) <0.10 kU/L Class 0 [facility] Basophil percentageOrdered B y: Dr. Hanks on 01-07-2023 Basophils/100 WBC (Bld) 0.3 % 0-1 [facility] Eosinophils/100 WBC (Bld) 0.7 % 0-5 [facility] Neutrophils (Bld) [#/Vol] 7.7 10*3/uL 2.0-7.7 [facility] Neutrophils/100 WBC (Bld) 52.2 % 47-70 [facility] WBC (Bld) [#/Vol] 14.7 10*3/uL 4.4-11.0 [facility] Blood erythrocytes count (nu mber/volume)Ordered By: Dr. Hanks on 01-07-2023 RBC (Bld) [#/Vol] 4.01 10*6/uL 4.2-5.4 [facility] Blood hemoglobin measurement (mass/volume)Ordered By: Dr. Hanks on 01-07-2023 Hemoglobin (Bld) [Mass/Vol] 12.1 g/dL 12.0-15.0 [facility] Blood hypersegmented neutrop hil countOrdered By: Dr. Hanks on 01-07-2023 Neutrophils.hypersegment ed (Bld) [#/Vol] 2+ [facility] Blood lymphocytes/100 leukoc ytesOrdered By: Dr. Hanks on 01-07-2023 Lymphocytes/100 WBC (Bld) 40.5 % 19-41 [facility] Blood manual differential co mment interpretation (narrative result)Ordered By: Dr. Hanks on 01-07-2023 Manual differential comment Fredy (Bld) [Interp] SCANNED [facility] Blood monocytes/100 leukocyt esOrdered By: Dr. Hanks on 01-07-2023 Monocytes/100 WBC (Bld) 5.8 % 0-10 [facility] Blood platelet mean volumeOr dered By: Dr. Hanks on 01-07-2023 Platelet mean volume (Bld) [Entitic vol] 9.3 fL 6.2-12.0 [facility] Determination of erythrocyte mean corpuscular volume (MCV)Ordered By: Dr. Hanks on 01-07-2023 MCV (RBC) [Entitic vol] 91.3 fL 81-99 [facility] Hematocrit Auto (Bld) [Volum e fraction]Ordered By: Dr. Hanks on 01-07-2023 Hematocrit (Bld) [Volume fraction] 36.6 % 37-47 [facility] Laboratory - Hematology and Cell countsOrdered By: Dr. Hanks on 01-07-2023 Erythrocyte distribution width (RBC) [Entitic vol] 48.9 fL 35.1-43.9 [facility] Erythrocyte distribution width (RBC) [Ratio] 14.6 % 11.6-14.6 [facility] Immature granulocytes/100 WBC (Bld) 0.500 % 0.0-0.9 [facility] Comment on above: IG% - Immature Granu locytes (promyelocytes, myelocytes and metamyelocytes) > 1% indicates that a LEFT SHIFT is Present. MCH (RBC) [Entitic mass] 30.2 pg 27.0-32.0 [facility] Nucleated RBC/100 WBC (Bld) [Ratio] 0 % 0-5 [facility] MCHC Auto (RBC) [Mass/Vol]Or dered By: Dr. Hanks on 01-07-2023 MCHC (RBC) [Mass/Vol] 33.1 g/dL 32-36 [facility] No Panel InformationOrdered By: Dr. Hanks on 01-07-2023 Atypical Lymphocytes 3+ % [facility] Cat Hair Allergen 2.47 kU/L Class III [facility] Common Ragweed (Short) Allergen <0.10 kU/L [facility] 0 [facility] Immunoglobulin E 26 IU/mL 6-495 [facility] Comment on above: Performed at: [address] [id number] Director: Zhou Oseguera MD, Phone: [phone] Alia ([place]) Allergen IgE Ab <0.10 kU/L Class 0 [facility] Mouse Urine Allergen IgE Antibody <0.10 kU/L Class 0 [facility] Comment on above: Performed at: [address] [id number] Director: Zhou Oseguera MD, Phone: [phone] [facility] Comment Comment . [facility] Comment on above: Levels of Specific I gE Class Description of Class ----- < 0.10 0 Negative 0.10 - 0.31 0/I Equivocal/Low 0.32 - 0.55 I Low 0.56 - 1.40 II Moderate 1.41 - 3.90 III High 3.91 - 19.00 IV Very High 19.01 - 100.00 V Very High >100.00 Very High Reactive Lymphocytes 2+ [facility] Randolph Tree Allergen <0.10 kU/L Class 0 [facility] Platelets bldOrdered By: Dr. Hanks on 01-07-2023 Platelets (Bld) [#/Vol] 347 10*3/uL 150-450 [facility] Review by pathologistOrdered By: Dr. Hanks on 01-07-2023 Pathologist review Fredy (Unsp spec) [Interp] Reviewed [facility] Comment on above: Previous reported re sult: Amparo bauer Edited by: RGOOD on 01/09/23:0940Leukocytosis. Clinical correlation necessary.Edmar Perdomo M.D. 01/09/23 AMENDED REPORT 01/09/23 0940 PATH REV previously reported as: Amparo bauer Rough pigweed specific IgE a ntibody assayOrdered By: Dr. Hanks on 01-07-2023 Rough Pigweed IgE Qn (S) <0.10 kU/L Class 0 [facility] Serum Colombian sycamore IgE antibody assay (units/volume)Ordered By: Dr. Hanks on 01-07-2023 Colombian Ashton IgE Qn (S) <0.10 kU/L Class 0 [facility] Serum Aspergillus flavus ant ibody detection by immunodiffusionOrdered By: Dr. Hanks on 01-07-2023 A. flavus Ab Immune diff Ql (S) Negative Neg:<1:1 [facility] Serum Aspergillus fumigatus IgE antibody assay (units/volume)Ordered By: Dr. Hanks on 01-07-2023 A. fumigatus IgE Qn (S) <0.10 kU/L Class 0 [facility] Serum Aspergillus fumigatus antibody detection by immunodiffusionOrdered By: Dr. Hanks on 01-07-2023 A. fumigatus Ab Immune diff Ql (S) Negative Neg:<1:1 [facility] Serum Aspergillus niger anti body detection by immunodiffusionOrdered By: Dr. Hanks on 01-07-2023 A. niger Ab Immune diff Ql (S) Negative Neg:<1:1 [facility] Serum Bermuda grass IgE anti body assay (units/volume)Ordered By: Dr. Hanks on 01-07-2023 Bermuda grass IgE Qn (S) <0.10 kU/L Class 0 [facility] Serum Cladosporium herbarum IgE antibody assay (units/volume)Ordered By: Dr. Hanks on 01-07-2023 C. herbarum IgE Qn (S) <0.10 kU/L Class 0 [facility] Serum Dermatophagoides farin ae specific IgE antibody assay (units/volume)Ordered By: Dr. Hanks on 01-07-2023 Colombian house dust mite IgE Qn (S) <0.10 kU/L Class 0 [facility] Serum house dust mi te IgE antibody assay (units/volume)Ordered By: Dr. Hanks on 01-07-2023 house dust mite IgE Qn (S) <0.10 kU/L Class 0 [facility] Serum Penicillium notatum Ig E antibody assay (units/volume)Ordered By: Dr. Hanks on 01-07-2023 P. notatum IgE Qn (S) <0.10 kU/L Class 0 [facility] Serum Periplaneta americana IgE antibody assay (units/volume)Ordered By: Dr. Hanks on 01-07-2023 Colombian Cockroach IgE Qn (S) <0.10 kU/L Class 0 [facility] Serum Haitian thistle specif ic IgE antibody assayOrdered By: Dr. Hanks on 01-07-2023 Saltwort IgE Qn (S) <0.10 kU/L Class 0 [facility] Serum birch specific IgE ant ibody assayOrdered By: Dr. Hanks on 01-07-2023 Silver Birch IgE Qn (S) <0.10 kU/L Class 0 [facility] Serum black walnut IgE antib ruben assay (units/volume)Ordered By: Dr. Hanks on 01-07-2023 Black [place]awkie IgE Qn (S) <0.10 kU/L Class 0 [facility] Serum cottonwood IgE antibod y assay (units/volume)Ordered By: Dr. Hanks on 01-07-2023 Sunspot IgE Qn (S) <0.10 kU/L Class 0 [facility] Serum dog epithelium IgE ant ibody assay (units/volume)Ordered By: Dr. Hanks on 01-07-2023 Dog epithelium IgE Qn (S) 0.18 kU/L Class 0/I [facility] Serum mountain cedar specifi c IgE antibody assayOrdered By: Dr. Hanks on 01-07-2023 Mountain Juniper IgE Qn (S) <0.10 kU/L Class 0 [facility] Serum pecan or hickory nut I gE antibody assay (units/volume)Ordered By: Dr. Hanks on 01-07-2023 [place] IgE Qn (S) <0.10 kU/L Class 0 [facility] Serum sheep sorrel IgE antib ruben assay (units/volume)Ordered By: Dr. Hanks on 01-07-2023 [place] IgE Qn (S) <0.10 kU/L Class 0 [facility] Serum akin IgE antibody a ssay (units/volume)Ordered By: Dr. Hanks on 01-07-2023 [place] IgE Qn (S) <0.10 kU/L Class 0 [facility] Serum white rick IgE antibody assay (units/volume)Ordered By: Dr. Hanks on 01-07-2023 White [place] IgE Qn (S) <0.10 kU/L Class 0 [facility] Serum white elm IgE antibody assay (units/volume)Ordered By: Dr. Hanks on 01-07-2023 [place] IgE Qn (S) <0.10 kU/L Class 0 [facility] Serum white mulberry IgE ant ibody assay (units/volume)Ordered By: Dr. Hanks on 01-07-2023 White mulberry IgE Qn (S) <0.10 kU/L Class 0 [facility] Smudge cell detectionOrdered By: Dr. Hanks on 01-07-2023 Smudge cells LM Ql (Bld) 1+ [facility] Basophil percentageOrdered B y: Dr. Garzon on 09-27-2022 Chloride [Moles/Vol] 106 mmol/L 98-107 [facility] Glucose [Mass/Vol] 108 mg/dL 74-106 [facility] Comment on above: Fasting Glucose resu lt from 100 to 125 mg/dL suggests IMPAIRED HOMEOSTASIS per A.D.A. criteria. Potassium [Moles/Vol] 4.3 mmol/L 3.5-5.1 [facility] Sodium [Moles/Vol] 139 mmol/L 136-145 [facility] Laboratory - Chemistry and C hemistry - challengeOrdered By: Dr. Garzon on 09-27-2022 CO2 [Moles/Vol] 27.0 mmol/L 21.0-32.0 [facility] Urea nitrogen/Creatinine [Mass ratio] 23.7 mg/mg 10-20 [facility] No Panel InformationOrdered By: Dr. Garzon on 09-27-2022 Estimated GFR (MDRD) Amer 105 mL/min >60 [facility] Comment on above: GFR Calc Estimated GFR (MDRD) Non-Af Amer 86 mL/min >60 [facility] Comment on above: Non- GFR Calc Serum or plasma calcium teddy urement (mass/volume)Ordered By: Dr. Garzon on 09-27-2022 Calcium [Mass/Vol] 9.4 mg/dL 8.5-10.1 [facility] Serum or plasma creatinine m easurement (mass/volume)Ordered By: Dr. Garzon on 09-27-2022 Creatinine [Mass/Vol] 0.72 mg/dL 0.55-1.02 [facility] Comment on above: The validity of the calculated GFR & GFRAA in patients over 70 years has not been determined. Clinical correlation is essential. Serum or plasma urea nitroge n measurement (mass/volume)Ordered By: Dr. Garzon on 09-27-2022 Urea nitrogen [Mass/Vol] 17 mg/dL 7-18 [facility] Thin prep Papanicolaou smear with manual screeningOrdered By: Dr. Garzon on 09-27-2022 Thin prep Papanicolaou smear with manual screening 6 5-15 [facility] Absolute lymphocyte countOrd ered By: Dr. Garzon on 09-19-2022 Lymphocytes Auto (Unsp spec) [#/Vol] 2.27 10*3/uL 0.83-4.51 [facility] Basophil percentageOrdered B y: Dr. Garzon on 09-19-2022 Basophil percentage 0-5 SEEN /hpf 0-5 [facility] Basophils/100 WBC (Bld) 0.5 % 0-1 [facility] Bilirubin [Mass/Vol] 0.50 mg/dL 0.20-1.00 [facility] Comment on above: For patients on eltr ombopag therapy, use of Dimension Marble TBIL is not recommended. Chloride [Moles/Vol] 106 mmol/L 98-107 [facility] Cholesterol [Mass/Vol] 177 mg/dL <200 [facility] Comment on above: <200 mg/dL Desirable 200-240 mg/dL Borderline >240 mg/dL High Risk Eosinophils/100 WBC (Bld) 1.6 % 0-5 [facility] Glucose [Mass/Vol] 97 mg/dL 74-106 [facility] Neutrophils (Bld) [#/Vol] 7.0 10*3/uL 2.0-7.7 [facility] Neutrophils/100 WBC (Bld) 69.6 % 47-70 [facility] Potassium [Moles/Vol] 4.4 mmol/L 3.5-5.1 [facility] Protein [Mass/Vol] 7.0 g/dL 6.4-8.2 [facility] Sodium [Moles/Vol] 140 mmol/L 136-145 [facility] Triglyceride [Mass/Vol] 84 mg/dL <199 [facility] Comment on above: The drugs N-Acetylcy steine and Metamizole may falsely depress this assay.Serum Triglycerides Reference Interval Normal <150 mg/dL Borderline high 150 - 199 mg/dL High 200 - 499 mg/dL Very High > or = 500 mg/dL WBC (Bld) [#/Vol] 10.1 10*3/uL 4.4-11.0 [facility] Bilirubin Test strip Ql (U)O rdered By: Dr. Garzon on 09-19-2022 Bilirubin Ql (U) Negative Negative [facility] Blood erythrocytes count (nu mber/volume)Ordered By: Dr. Garzon on 09-19-2022 RBC (Bld) [#/Vol] 4.50 10*6/uL 4.2-5.4 [facility] Blood hemoglobin measurement (mass/volume)Ordered By: Dr. Garzon on 09-19-2022 Hemoglobin (Bld) [Mass/Vol] 13.2 g/dL 12.0-15.0 [facility] Blood lymphocytes/100 leukoc ytesOrdered By: Dr. Garzon on 09-19-2022 Lymphocytes/100 WBC (Bld) 22.5 % 19-41 [facility] Blood monocytes/100 leukocyt esOrdered By: Dr. Garzon on 09-19-2022 Monocytes/100 WBC (Bld) 5.4 % 0-10 [facility] Blood platelet mean volumeOr dered By: Dr. Garzon on 09-19-2022 Platelet mean volume (Bld) [Entitic vol] 10.9 fL 6.2-12.0 [facility] Determination of erythrocyte mean corpuscular volume (MCV)Ordered By: Dr. Garzon on 09-19-2022 MCV (RBC) [Entitic vol] 92.4 fL 81-99 [facility] Hematocrit Auto (Bld) [Volum e fraction]Ordered By: Dr. Garzon on 09-19-2022 Hematocrit (Bld) [Volume fraction] 41.6 % 37-47 [facility] Ketones Test strip Ql (U)Ord ered By: Dr. Garzon on 09-19-2022 Ketones Ql (U) Negative Negative [facility] Laboratory - Chemistry and C hemistry - challengeOrdered By: Dr. Garzon on 09-19-2022 ALP [Catalytic activity/Vol] 72 U/L 45-117 [facility] ALT [Catalytic activity/Vol] 23 U/L 13-56 [facility] CO2 [Moles/Vol] 26.0 mmol/L 21.0-32.0 [facility] Globulin (S) [Mass/Vol] 2.9 g/dL 2.2-4.2 [facility] Urea nitrogen/Creatinine [Mass ratio] 25.0 mg/mg 10-20 [facility] Laboratory - Hematology and Cell countsOrdered By: Dr. Garzon on 09-19-2022 Erythrocyte distribution width (RBC) [Entitic vol] 44.7 fL 35.1-43.9 [facility] Erythrocyte distribution width (RBC) [Ratio] 13.1 % 11.6-14.6 [facility] Immature granulocytes/100 WBC (Bld) 0.400 % 0.0-0.9 [facility] Comment on above: IG% - Immature Granu locytes (promyelocytes, myelocytes and metamyelocytes) > 1% indicates that a LEFT SHIFT is Present. MCH (RBC) [Entitic mass] 29.3 pg 27.0-32.0 [facility] Nucleated RBC/100 WBC (Bld) [Ratio] 0 % 0-5 [facility] MCHC Auto (RBC) [Mass/Vol]Or dered By: Dr. Garzon on 09-19-2022 MCHC (RBC) [Mass/Vol] 31.7 g/dL 32-36 [facility] Mucus LM Ql (Urine sed)Order ed By: Dr. Garzon on 09-19-2022 Mucus Ql (Urine sed) 0 SEEN /hpf [facility] Nitrite Test strip Ql (U)Ord ered By: Dr. Garzon on 09-19-2022 Nitrite Ql (U) Negative Negative [facility] No Panel InformationOrdered By: Dr. Garzon on 09-19-2022 Estimated GFR (MDRD) Amer 104 mL/min >60 [facility] Comment on above: GFR Calc Estimated GFR (MDRD) Non-Af Amer 86 mL/min >60 [facility] Comment on above: Non- GFR Calc Vitamin D 25-Hydroxy 56.6 ng/mL [facility] Comment on above: Vitamin D 25(OH) Sta tus Range Deficiency <20 ng/mL (50nmol/L) Insufficiency 20 - 30 ng/mL (50 - 75 nmol/L) Sufficiency 30 - 100 ng/mL (75 - 250 nmol/L) Toxicity >100 ng/mL (>250 nmol/L) Platelets bldOrdered By: Dr. Garzon on 09-19-2022 Platelets (Bld) [#/Vol] 314 10*3/uL 150-450 [facility] Protein Test strip Ql (U)Ord ered By: Dr. Garzon on 09-19-2022 Protein Ql (U) 15 mg/dl Negative [facility] Serum or plasma albumin teddy urement (mass/volume)Ordered By: Dr. Garzon on 09-19-2022 Albumin [Mass/Vol] 4.1 g/dL 3.2-5.0 [facility] Serum or plasma albumin/glob ulin mass ratioOrdered By: Dr. Garzon on 09-19-2022 Albumin/Globulin [Mass ratio] 1.4 {ratio} 0.9-2.4 [facility] Serum or plasma calcium teddy urement (mass/volume)Ordered By: Dr. Garzon on 09-19-2022 Calcium [Mass/Vol] 9.2 mg/dL 8.5-10.1 [facility] Serum or plasma cholesterol in HDL measurement (mass/volume)Ordered By: Dr. Garzon on 09-19-2022 Cholesterol in HDL [Mass/Vol] 56 mg/dL >40 [facility] Comment on above: The drugs N-Acetylcy steine and Metamizole may falsely depress this assay. Reference Range HDL <40 mg/dL Low HDL Cholesterol HDL >or= 60 mg/dL High HDL Cholesterol Serum or plasma cholesterol in VLDL measurement (mass/volume)Ordered By: Dr. Garzon on 09-19-2022 Cholesterol in VLDL [Mass/Vol] 17 mg/dL 5-40 [facility] Serum or plasma creatinine m easurement (mass/volume)Ordered By: Dr. Garzon on 09-19-2022 Creatinine [Mass/Vol] 0.72 mg/dL 0.55-1.02 [facility] Comment on above: The validity of the calculated GFR & GFRAA in patients over 70 years has not been determined. Clinical correlation is essential. Serum or plasma low density lipoprotein (LDL) cholesterol measurement (mass/volume)Ordered By: Dr. Garzon on 09-19-2022 Cholesterol in LDL [Mass/Vol] 104 mg/dL 0-130 [facility] Serum or plasma urea nitroge n measurement (mass/volume)Ordered By: Dr. Garzon on 09-19-2022 Urea nitrogen [Mass/Vol] 18 mg/dL 7-18 [facility] Squamous epithelial cells de tection in urine sediment by light microscopyOrdered By: Dr. Garzon on 09-19-2022 Epithelial cells.squamous LM Ql (Urine sed) 0-5 SEEN /hpf 5-10 [facility] Thin prep Papanicolaou smear with manual screeningOrdered By: Dr. Garzon on 09-19-2022 Thin prep Papanicolaou smear with manual screening 12 U/L 15-37 [facility] Thin prep Papanicolaou smear with manual screening 8 5-15 [facility] Urine blood detectionOrdered By: Dr. Garzon on 09-19-2022 RBC Ql (U) Negative Negative [facility] RBC Ql (U) 0 SEEN /hpf 0-5 [facility] Urine clarityOrdered By: Dr. Garzon on 09-19-2022 Clarity (U) Sl. Cloudy Clear [facility] Urine color determinationOrd ered By: Dr. Garzon on 09-19-2022 Color (U) Yellow Yellow [facility] Urine glucose detectionOrder ed By: Dr. Garzon on 09-19-2022 Glucose Ql (U) Normal mg/dl Normal [facility] Urine leukocyte esterase det ection by dipstickOrdered By: Dr. Garzon on 09-19-2022 Leukocyte esterase Test strip Ql (U) 25 /ul Negative [facility] Urine pHOrdered By: Dr. Jose chao on 09-19-2022 pH (U) 6.0 [pH] 5.0 - 8.0 [facility] Urine sediment bacteria coun t by microscopy (number/high power field)Ordered By: Dr. Garzon on 09-19-2022 Bacteria LM.HPF (Urine sed) [#/Area] 0 /[HPF] None Seen [facility] Urine specific gravity measu rementOrdered By: Dr. Garzon on 09-19-2022 Specific gravity (U) [Rel density] 1.020 1.002-1.03 0 [facility] Urobilinogen Auto test strip Ql (U)Ordered By: Dr. Garzon on 09-19-2022 Urobilinogen Ql (U) Normal mg/dl Normal [facility] Absolute lymphocyte counton 01-08-2022 Lymphocytes Auto (Unsp spec) [#/Vol] 2.48 10*3/uL 0.83-4.51 [facility] Work Phone: Basophil percentageon 2021 Basophil percentage 0-5 SEEN /hpf [facility] Work Phone: [phone] Basophils/100 WBC (Bld) 0.6 % 0-1 [facility] Work Phone: [phone] Bilirubin [Mass/Vol] 0.40 mg/dL 0.20-1.00 [facility] Work Phone: [phone] Comment on above: For patients on eltr ombopag therapy, use of Dimension [place] TBIL is not recommended. Chloride [Moles/Vol] 106 mmol/L 98-107 [facility] Work Phone: [phone] Cholesterol [Mass/Vol] 228 mg/dL <200 [facility] Work Phone: [phone] Comment on above: <200 mg/dL Desirable 200-240 mg/dL Borderline >240 mg/dL High Risk Eosinophils/100 WBC (Bld) 5.1 % 0-5 [facility] Work Phone: Glucose [Mass/Vol] 98 mg/dL 74-106 [facility] Work Phone: Neutrophils (Bld) [#/Vol] 3.0 10*3/uL 2.0-7.7 [facility] Work Phone: Neutrophils/100 WBC (Bld) 47.5 % 47-70 [facility] Work Phone: [phone] Potassium [Moles/Vol] 3.9 mmol/L 3.5-5.1 [facility] Work Phone: Protein [Mass/Vol] 7.2 g/dL 6.4-8.2 [facility] Work Phone: [phone] Sodium [Moles/Vol] 139 mmol/L 136-145 [facility] Work Phone: [phone] Triglyceride [Mass/Vol] 111 mg/dL [facility] Work Phone: Comment on above: The drugs N-Acetylcy steine and Metamizole may falsely depress this assay.Serum Triglycerides Reference Interval Normal <150 mg/dL Borderline high 150 - 199 mg/dL High 200 - 499 mg/dL Very High > or = 500 mg/dL WBC (Bld) [#/Vol] 6.3 10*3/uL 4.4-11.0 [facility] Work Phone: Bilirubin Test strip Ql (U)o n 01-08-2022 Bilirubin Ql (U) Negative Negative [facility] Work Phone: Blood erythrocytes count (nu mber/volume)on 01-08-2022 RBC (Bld) [#/Vol] 4.40 10*6/uL 4.2-5.4 [facility] Work Phone: Blood hemoglobin measurement (mass/volume)on 01-08-2022 Hemoglobin (Bld) [Mass/Vol] 13.3 g/dL 12.0-15.0 [facility] Work Phone: Blood lymphocytes/100 leukoc yteson 01-08-2022 Lymphocytes/100 WBC (Bld) 39.7 % 19-41 [facility] Work Phone: Blood monocytes/100 leukocyt eson 01-08-2022 Monocytes/100 WBC (Bld) 6.9 % 0-10 [facility] Work Phone: Blood platelet mean volumeon 01-08-2022 Platelet mean volume (Bld) [Entitic vol] 10.5 fL 6.2-12.0 [facility] Work Phone: [phone] Determination of erythrocyte mean corpuscular volume (MCV)on 01-08-2022 MCV (RBC) [Entitic vol] 91.6 fL 81-99 [facility] Work Phone: [phone] Hematocrit Auto (Bld) [Volum e fraction]on 01-08-2022 Hematocrit (Bld) [Volume fraction] 40.3 % 37-47 [facility] Work Phone: Ketones Test strip Ql (U)on 01-08-2022 Ketones Ql (U) Negative Negative [facility] Work Phone: [phone] Laboratory - Chemistry and C hemistry - challengeon 01-08-2022 ALP [Catalytic activity/Vol] 70 U/L 45-117 [facility] Work Phone: [phone] ALT [Catalytic activity/Vol] 25 U/L 13-56 [facility] Work Phone: [phone] CO2 [Moles/Vol] 29.0 mmol/L 21.0-32.0 [facility] Work Phone: [phone] Globulin (S) [Mass/Vol] 3.1 g/dL 2.2-4.2 [facility] Work Phone: [phone] Urea nitrogen/Creatinine [Mass ratio] 22.0 mg/mg 10-20 [facility] Work Phone: [phone] Laboratory - Hematology and Cell countson 01-08-2022 Erythrocyte distribution width (RBC) [Entitic vol] 46.9 fL 35.1-43.9 [facility] Work Phone: [phone] Erythrocyte distribution width (RBC) [Ratio] 13.8 % 11.6-14.6 [facility] Work Phone: [phone] Immature granulocytes/100 WBC (Bld) 0.200 % 0.0-0.9 [facility] Work Phone: Comment on above: IG% - Immature Granu locytes (promyelocytes, myelocytes and metamyelocytes) > 1% indicates that a LEFT SHIFT is Present. MCH (RBC) [Entitic mass] 30.2 pg 27.0-32.0 [facility] Work Phone: [phone] Nucleated RBC/100 WBC (Bld) [Ratio] 0 % 0-5 [facility] Work Phone: MCHC Auto (RBC) [Mass/Vol]on 01-08-2022 MCHC (RBC) [Mass/Vol] 33.0 g/dL 32-36 [facility] Work Phone: Mucus LM Ql (Urine sed)on Mucus Ql (Urine sed) 0 SEEN /hpf [facility] Work Phone: Nitrite Test strip Ql (U)on 01-08-2022 Nitrite Ql (U) Negative Negative [facility] Work Phone: No Panel Informationon 01-08 Estimated GFR (MDRD) Amer 121 mL/min >60 [facility] Work Phone: Comment on above: GFR Calc Estimated GFR (MDRD) Non-Af Amer 100 mL/min >60 [facility] Work Phone: Comment on above: Non- GFR Calc Thyroid Stimulating Hormone (TSH) 1.14 uIU/mL 0.358-3.74 [facility] Work Phone: Vitamin D 25-Hydroxy 37.3 ng/mL [facility] Work Phone: Comment on above: Vitamin D 25(OH) Sta tus Range Deficiency <20 ng/mL (50nmol/L) Insufficiency 20 - 30 ng/mL (50 - 75 nmol/L) Sufficiency 30 - 100 ng/mL (75 - 250 nmol/L) Toxicity >100 ng/mL (>250 nmol/L) Platelets bldon 01-08-2022 Platelets (Bld) [#/Vol] 300 10*3/uL 150-450 [facility] Work Phone: Protein Test strip Ql (U)on 01-08-2022 Protein Ql (U) Negative Negative [facility] Work Phone: Serum or plasma albumin teddy urement (mass/volume)on 01-08-2022 Albumin [Mass/Vol] 4.1 g/dL 3.2-5.0 [facility] Work Phone: Serum or plasma albumin/glob ulin mass ratioon 01-08-2022 Albumin/Globulin [Mass ratio] 1.3 {ratio} 0.9-2.4 [facility] Work Phone: Serum or plasma calcium teddy urement (mass/volume)on 01-08-2022 Calcium [Mass/Vol] 9.0 mg/dL 8.5-10.1 [facility] Work Phone: Serum or plasma cholesterol in HDL measurement (mass/volume)on 01-08-2022 Cholesterol in HDL [Mass/Vol] 46 mg/dL [facility] Work Phone: Comment on above: The drugs N-Acetylcy steine and Metamizole may falsely depress this assay. Reference Range HDL <40 mg/dL Low HDL Cholesterol HDL >or= 60 mg/dL High HDL Cholesterol Serum or plasma cholesterol in VLDL measurement (mass/volume)on 01-08-2022 Cholesterol in VLDL [Mass/Vol] 22 mg/dL 5-40 [facility] Work Phone: Serum or plasma creatinine m easurement (mass/volume)on 01-08-2022 Creatinine [Mass/Vol] 0.64 mg/dL 0.55-1.02 [facility] Work Phone: Comment on above: The validity of the calculated GFR & GFRAA in patients over 70 years has not been determined. Clinical correlation is essential. Serum or plasma low density lipoprotein (LDL) cholesterol measurement (mass/volume)on 01-08-2022 Cholesterol in LDL [Mass/Vol] 160 mg/dL 0-130 [facility] Work Phone: Serum or plasma urea nitroge n measurement (mass/volume)on 01-08-2022 Urea nitrogen [Mass/Vol] 14 mg/dL 7-18 [facility] Work Phone: Squamous epithelial cells de tection in urine sediment by light microscopyon 01-08-2022 Epithelial cells.squamous LM Ql (Urine sed) 0-5 SEEN /hpf [facility] Work Phone: Thin prep Papanicolaou smear with manual screeningon 01-08-2022 Thin prep Papanicolaou smear with manual screening 15 U/L 15-37 [facility] Work Phone: Thin prep Papanicolaou smear with manual screening 4 5-15 [facility] Work Phone: Urine blood detectionon 12-19 RBC Ql (U) Negative Negative [facility] Work Phone: RBC Ql (U) 0 SEEN /hpf [facility] Work Phone: Urine clarityon 01-08-2022 Clarity (U) Sl. Cloudy Clear [facility] Work Phone: Urine color determinationon 01-08-2022 Color (U) Yellow Yellow [facility] Work Phone: Urine glucose detectionon Glucose Ql (U) Normal mg/dl Normal [facility] Work Phone: Urine leukocyte esterase det ection by dipstickon 01-08-2022 Leukocyte esterase Test strip Ql (U) 500 /ul Negative [facility] Work Phone: Urine pHon 01-08-2022 pH (U) 7.0 [pH] [facility] Work Phone: Urine sediment bacteria coun t by microscopy (number/high power field)on 01-08-2022 Bacteria LM.HPF (Urine sed) [#/Area] RARE /hpf None Seen [facility] Work Phone: Urine specific gravity measu rementon 01-08-2022 Specific gravity (U) [Rel density] 1.010 [facility] Work Phone: Urobilinogen Auto test strip Ql (U)on 01-08-2022 Urobilinogen Ql (U) Normal mg/dl Normal [facility] Work Phone: Vital Signs Date Time Vital Sign Value Performing Clinician Faci lity 04-05-2025 14:25-0400 Body height 154.[address] Jose Garzon MD Work Phone: [facility] 04-05-2025 14:25-0400 Body mass index (BMI) [Ratio] 27.2 kg/m2 Dr. Jose Garzon MD Work Phone: [phone] [place] [address] 04-05-2025 14:25-0400 Body temperature 98.3 [degF] Dr. Jose Garzon MD Work Phone: [phone] [place] [address] 04-05-2025 14:25-0400 Body weight 65.[address] Jose Garzon MD Work Phone: [phone] [place] [address] 04-05-2025 14:25-0400 Diastolic blood pressure 85 mm[Hg] Dr. Jose aGrzon MD Work Phone: [phone] [place] [address] 04-05-2025 14:25-0400 Heart rate 91 /min Dr. Jose Garzon MD Work Phone: [phone] [place] [address] 04-05-2025 14:25-0400 Respiratory rate 18 /min Dr. Jose Garzon MD Work Phone: [phone] [place] [address] 04-05-2025 14:25-0400 SaO2% (BldA) [Mass fraction] 98 % Dr. Jose Garzon MD Work Phone: [phone] [place] [address] 04-05-2025 14:25-0400 Systolic blood pressure 133 mm[Hg] Dr. Jose Garzon MD Work Phone: [phone] [place] [address] 02-22-2025 09:35-0400 Body mass index (BMI) [Ratio] 27.8 kg/m2 Dr. Jose Garzon MD Work Phone: [phone] [place] [address] 02-22-2025 09:35-0400 Body temperature 97.4 [degF] Dr. Jose Garzon MD Work Phone: [phone] [place] [address] 02-22-2025 09:35-0400 Body weight 66.[address] Jose Garzon MD Work Phone: [phone])354-119899 [place] [address] 02-22-2025 09:35-0400 Diastolic blood pressure 83 mm[Hg] Dr. Jose Garzon MD Work Phone: [facility] 02-22-2025 09:35-0400 Heart rate 100 /min Dr. Jose Garzon MD Work Phone: [facility] 02-22-2025 09:35-0400 Respiratory rate 18 /min Dr. Jose Garzon MD Work Phone: [phone] [place] [address] 02-22-2025 09:35-0400 SaO2% (BldA) [Mass fraction] 97 % Dr. Jose Garzon MD Work Phone: [facility] 02-22-2025 09:35-0400 Systolic blood pressure 137 mm[Hg] Dr. Jose Garzon MD Work Phone: [phone] [place] [address] 12-30-2024 13:08-0400 Body mass index (BMI) [Ratio] 27.6 kg/m2 Dr. Jose Garzon MD Work Phone: [phone] [place] [address] 12-30-2024 13:08-0400 Body temperature 97.7 [degF] Dr. Jose Garzon MD Work Phone: [phone])243-913599 [place] [address] 12-30-2024 13:08-0400 Body weight 66.[address] Jose Garzon MD Work Phone: [phone] [place] [address] 12-30-2024 13:08-0400 Diastolic blood pressure 84 mm[Hg] Dr. Jose Garzon MD Work Phone: 1(047)564-694889 [place] [address] 12-30-2024 13:08-0400 Heart rate 84 /min Dr. Jose Garzon MD Work Phone: 5([phone] [place] [address] 12-30-2024 13:08-0400 Respiratory rate 16 /min Dr. Jose Garzon MD Work Phone: [phone] [place] [address] 12-30-2024 13:08-0400 SaO2% (BldA) [Mass fraction] 97 % Dr. Jose Garzon MD Work Phone: [phone] [place] [address] 12-30-2024 13:08-0400 Systolic blood pressure 134 mm[Hg] Dr. Jose Garzon MD Work Phone: [facility] 02-07-2024 08:35-0400 Body temperature 98.1 [degF] Dr. Jose Garzon Work Phone: [facility] 02-07-2024 08:35-0400 Diastolic blood pressure 61 mm[Hg] Dr. Jose Garzon Work Phone: [facility] 02-07-2024 08:35-0400 Heart rate 76 /min Dr. Jose Garzon Work Phone: [facility] 02-07-2024 08:35-0400 Respiratory rate 16 /min Dr. Jose Garzon Work Phone: [facility] 02-07-2024 08:35-0400 SaO2% (BldA) [Mass fraction] 94 % Dr. Jose Garzon Work Phone: [facility] 02-07-2024 08:35-0400 Systolic blood pressure 117 mm[Hg] Dr. Jose Garzon Work Phone: [facility] 02-07-2024 03:54-0400 Inhaled oxygen flow rate 1 L/min Dr. Jose Garzon Work Phone: [facility] 02-06-2024 16:11-0400 Body height 154.[address] Jose Garzon Work Phone: [facility] 02-06-2024 16:11-0400 Body mass index (BMI) [Ratio] 27.1 kg/m2 Dr. Jose Garzon Work Phone: [facility] 02-06-2024 16:11-0400 Body weight [address] Jose Garzon Work Phone: [facility] 01-21-2024 13:36-0400 Diastolic blood pressure 91 mm[Hg] Dr. Jose Garzon Work Phone: [facility] 01-21-2024 13:36-0400 Heart rate 89 /min Dr. Jose Garzon Work Phone: [facility] 01-21-2024 13:36-0400 Respiratory rate 17 /min Dr. Jose Garzon Work Phone: [facility] 01-21-2024 13:36-0400 SaO2% (BldA) [Mass fraction] 95 % Dr. Jose Garzon Work Phone: [facility] 01-21-2024 13:36-0400 Systolic blood pressure 161 mm[Hg] Dr. Jose Garzon Work Phone: [facility] 01-13-2024 15:02-0400 Body height 154.[address] Jose Garzon Work Phone: [facility] 01-13-2024 15:02-0400 Body mass index (BMI) [Ratio] 27.9 kg/m2 Dr. Jose Garzon Work Phone: 8(256)378-221089 [place] [address] 01-13-2024 15:02-0400 Body temperature 98.6 [degF] Dr. Jose Garzon Work Phone: [facility] 01-13-2024 15:02-0400 Body weight 67.[address] Jose Garzon Work Phone: [facility] 01-13-2024 15:02-0400 Diastolic blood pressure 87 mm[Hg] Dr. Jose Garzon Work Phone: [facility] 01-13-2024 15:02-0400 Heart rate 92 /min Dr. Jose Garzon Work Phone: [facility] 01-13-2024 15:02-0400 Respiratory rate 18 /min Dr. Jose Garzon Work Phone: [facility] 01-13-2024 15:02-0400 SaO2% (BldA) [Mass fraction] 95 % Dr. Jose Garzon Work Phone: [facility] 01-13-2024 15:02-0400 Systolic blood pressure 131 mm[Hg] Dr. Jose Garzon Work Phone: [facility] 12-29-2023 12:55-0400 Body weight 65.[address] Jose Garzon Work Phone: 1(703)878-373589 [place] [address] 12-28-2023 11:29-0400 Body temperature 97.3 [degF] Dr. Jose Garzon Work Phone: 1(924)842-224989 [place] [address] 12-28-2023 11:29-0400 Diastolic blood pressure 93 mm[Hg] Dr. Jose Garzon Work Phone: 2(009)353-336689 [place] [address] 12-28-2023 11:29-0400 Heart rate 96 /min Dr. Jose Garzon Work Phone: 2(280)464-433989 [place] [address] 12-28-2023 11:29-0400 Respiratory rate 16 /min Dr. Jose Garzon Work Phone: 2(819)790-513499 [place] [address] 12-28-2023 11:29-0400 SaO2% (BldA) [Mass fraction] 98 % Dr. Jose Garzon Work Phone: 4(416)529-158689 [place] [address] 12-28-2023 11:29-0400 Systolic blood pressure 133 mm[Hg] Dr. Jose Garzon Work Phone: 7(522)399-394099 [place] [address] 12-28-2023 08:43-0400 Body height 154.[address] Jose Garzon Work Phone: 1(863)041-242489 [place] [address] 12-28-2023 08:43-0400 Body mass index (BMI) [Ratio] 27.6 kg/m2 Dr. Jose Garzon Work Phone: [facility] 12-28-2023 08:43-0400 Body weight 66.[address] Jose Garzon Work Phone: 7(469)496-817089 [place] [address] 12-15-2023 15:46-0500 Body height 154.[address] Jose Garzon Work Phone: 0(786)607-908589 [place] [address] 12-15-2023 15:42-0500 Body mass index (BMI) [Ratio] 27.5 kg/m2 Dr. Jose Garzon Work Phone: 3(842)126-733489 [place] [address] 12-15-2023 15:42-0500 Body temperature 98.8 [degF] Dr. Jose Garzon Work Phone: [facility] 12-15-2023 15:42-0500 Body weight 65.[address] Jose Garzon Work Phone: [facility] 12-15-2023 15:42-0500 Diastolic blood pressure 92 mm[Hg] Dr. Jose Garzon Work Phone: 3(792)266-628689 [place] [address] 12-15-2023 15:42-0500 Heart rate 91 /min Dr. Jose Garzon Work Phone: 5(960)167-482989 [place] [address] 12-15-2023 15:42-0500 Respiratory rate 18 /min Dr. Jose Garzon Work Phone: 6(539)540-762389 [place] [address] 12-15-2023 15:42-0500 SaO2% (BldA) [Mass fraction] 98 % Dr. Jose Garzon Work Phone: [facility] 12-15-2023 15:42-0500 Systolic blood pressure 138 mm[Hg] Dr. Jose Garzon Work Phone: 2(443)568-540689 [place] [address] 12-04-2023 15:03-0500 Body height 154.[address] Jose Garzon Work Phone: 1(233)174-605989 [place] [address] 12-04-2023 15:03-0500 Body mass index (BMI) [Ratio] 27.4 kg/m2 Dr. Jose Garzon Work Phone: [facility] 12-04-2023 15:03-0500 Body temperature 97.4 [degF] Dr. Jose Garzon Work Phone: 0(029)631-639589 [place] [address] 12-04-2023 15:03-0500 Body weight 65.[address] Jose Garzon Work Phone: [facility] 12-04-2023 15:03-0500 Diastolic blood pressure 90 mm[Hg] Dr. Jose Garzon Work Phone: 7(339)697-562789 [place] [address] 12-04-2023 15:03-0500 Heart rate 100 /min Dr. Jose Garzon Work Phone: [facility] 12-04-2023 15:03-0500 Respiratory rate 17 /min Dr. Jose Garzon Work Phone: [facility] 12-04-2023 15:03-0500 SaO2% (BldA) [Mass fraction] 97 % Dr. Jose Garzon Work Phone: [facility] 12-04-2023 15:03-0500 Systolic blood pressure 138 mm[Hg] Dr. Jose Garzon Work Phone: [facility] 10-26-2023 09:44-0500 Body temperature 101 [degF] Dr. Jose Garzon Work Phone: [facility] 10-26-2023 09:44-0500 Respiratory rate 16 /min Dr. Jose Garzon Work Phone: [facility] 10-26-2023 06:41-0500 Body height 157.[address] Jose Garzon Work Phone: [facility] 10-26-2023 06:41-0500 Body mass index (BMI) [Ratio] 26.5 kg/m2 Dr. Jose Garzon Work Phone: [facility] 10-26-2023 06:41-0500 Body weight 65.[address] Jose Garzon Work Phone: [facility] 10-26-2023 06:41-0500 Diastolic blood pressure 80 mm[Hg] Dr. Jose Garzon Work Phone: [facility] 10-26-2023 06:41-0500 Heart rate 115 /min Dr. Jose Garzon Work Phone: [facility] 10-26-2023 06:41-0500 SaO2% (BldA) [Mass fraction] 97 % Dr. Jose Garzon Work Phone: [facility] 10-26-2023 06:41-0500 Systolic blood pressure 121 mm[Hg] Dr. Jose Garzon Work Phone: [facility] 10-14-2023 11:20-0500 Body mass index (BMI) [Ratio] 27.1 kg/m2 Dr. Jose Garzon Work Phone: [facility] 10-14-2023 11:20-0500 Body temperature 97.2 [degF] Dr. Jose Garzon Work Phone: [facility] 10-14-2023 11:20-0500 Body weight 67.[address] Jose Garzon Work Phone: [facility] 10-14-2023 11:20-0500 Diastolic blood pressure 79 mm[Hg] Dr. Jose Garzon Work Phone: [facility] 10-14-2023 11:20-0500 Heart rate 95 /min Dr. Jose Garzon Work Phone: [facility] 10-14-2023 11:20-0500 Respiratory rate 18 /min Dr. Jose Garzon Work Phone: [facility] 10-14-2023 11:20-0500 SaO2% (BldA) [Mass fraction] 98 % Dr. Jose Garzon Work Phone: [facility] 10-14-2023 11:20-0500 Systolic blood pressure 112 mm[Hg] Dr. Jose Garzon Work Phone: [facility] 02-13-2023 06:42-0400 Body height 157.[address] Jose Garzon Work Phone: [facility] 02-13-2023 06:42-0400 Body mass index (BMI) [Ratio] 27.8 kg/m2 Dr. Jose Garzon Work Phone: [facility] 02-13-2023 06:42-0400 Body temperature 97.8 [degF] Dr. Jose Garzon Work Phone: [facility] 02-13-2023 06:42-0400 Body weight 68.[address] Jose Garzon Work Phone: [facility] 02-13-2023 06:42-0400 Diastolic blood pressure 80 mm[Hg] Dr. Jose Garzon Work Phone: [facility] 02-13-2023 06:42-0400 Heart rate 86 /min Dr. Jose Garzon Work Phone: [facility] 02-13-2023 06:42-0400 Respiratory rate 18 /min Dr. Jose Garzon Work Phone: [facility] 02-13-2023 06:42-0400 SaO2% (BldA) [Mass fraction] 97 % Dr. Jose Garzon Work Phone: [facility] 02-13-2023 06:42-0400 Systolic blood pressure 135 mm[Hg] Dr. Jose Garzon Work Phone: [facility] 01-02-2023 06:40-0400 Body height 157.[address] Jose Garzon Work Phone: [facility] 01-02-2023 06:40-0400 Body mass index (BMI) [Ratio] 27.4 kg/m2 Dr. Jose Garzon Work Phone: [facility] 01-02-2023 06:40-0400 Body temperature 95.5 [degF] Dr. Jose Garzon Work Phone: [facility] 01-02-2023 06:40-0400 Body weight 68.[address] Jose Garzon Work Phone: [facility] 01-02-2023 06:40-0400 Diastolic blood pressure 77 mm[Hg] Dr. Jose Garzon Work Phone: [facility] 01-02-2023 06:40-0400 Heart rate 114 /min Dr. Jose Garzon Work Phone: [facility] 01-02-2023 06:40-0400 Respiratory rate 20 /min Dr. Jose Garzon Work Phone: [facility] 01-02-2023 06:40-0400 SaO2% (BldA) [Mass fraction] 97 % Dr. Jose Garzon Work Phone: [facility] 01-02-2023 06:40-0400 Systolic blood pressure 112 mm[Hg] Dr. Jose Garzon Work Phone: [facility] 12-28-2022 18:49-0500 Respiratory rate 16 /min [facility] 12-28-2022 18:49-0500 SaO2% (BldA) [Mass fraction] 98 % [facility] 12-28-2022 17:46-0500 Heart rate 110 /min [facility] 12-28-2022 16:38-0500 Diastolic blood pressure 110 mm[Hg] [facility] 12-28-2022 16:38-0500 Systolic blood pressure 120 mm[Hg] [facility] 12-28-2022 16:31-0500 Body height 157.48 cm [facility] 12-28-2022 16:31-0500 Body mass index (BMI) [Ratio] 27.8 kg/m2 [facility] 12-28-2022 16:31-0500 Body temperature 99 [degF] [facility] 12-28-2022 16:31-0500 Body weight 69 kg [facility] 01-10-2022 21:05-0400 Respiratory rate 18 /min [facility] Work Phone: 01-10-2022 20:43-0400 Body height 157.48 cm [facility] Work Phone: 01-10-2022 20:43-0400 Body mass index (BMI) [Ratio] 27.8 kg/m2 [facility] Work Phone: 01-10-2022 20:43-0400 Body temperature 96.9 [degF] [facility] Work Phone: 01-10-2022 20:43-0400 Body weight 69 kg [facility] Work Phone: 01-10-2022 20:43-0400 Diastolic blood pressure 127 mm[Hg] [facility] Work Phone: 01-10-2022 20:43-0400 Heart rate 91 /min [facility] Work Phone: 01-10-2022 20:43-0400 SaO2% (BldA) [Mass fraction] 93 % [facility] Work Phone: 01-10-2022 20:43-0400 Systolic blood pressure 161 mm[Hg] [facility] Work Phone: Encounters Encounter Date Encounter Type Care Provider Facility Start: 04-05-[address] Nika Cristina MD -[facility] Start: 04-05-2025 End: 04-05-[address] Juventino Rodriguez MD -[facility] Work Phone: Start: 04-05-2025 End: 04-05-[address] Jose Garzon MD Work Phone: [facility] Work Phone: Start: 04-04-2025 End: 04-04-[address] Jose Garzon MD Work Phone: [facility] Work Phone: Start: 04-04-2025 End: 04-04-[address] Jose Garzon MD -[facility] Start: 04-04-2025 End: 04-04-2025 ambulatory Jose Garzon Facility:[facility] Start: 03-30-2025 End: 03-30-[address] Jose Garzon MD Work Phone: [facility] Work Phone: Start: 03-30-2025 End: 03-30-[address] Jose Gar[facility] Work Phone: Start: 03-30-2025 End: 03-30-2025 ambulatory Jose Garzon Facility:[facility] Start: 02-22-2025 End: 02-22-[address] Keven Joshi DO -[facility] Work Phone: Start: 02-22-2025 End: 02-22-2025 ambulatory Jose Garzon Facility:[facility] Start: 02-08-2025 End: 02-08-[address] Melissa Stinson MD -[facility] Work Phone: Start: 02-08-2025 End: 02-08-2025 ambulatory Jose Garzon Facility:[facility] Start: 12-30-2024 End: 12-30-[address] Dillan Cristina MD -[facility] Work Phone: Start: 12-30-2024 End: 12-30-2024 ambulatory Jose Garzon Facility:[facility] Start: 11-28-2024 End: 11-28-2024 ambulatory Jose Garzon Facility:[facility] Start: 10-26-2024 End: 10-26-2024 ambulatory Jose Garzon Facility:[facility] Start: 10-22-2024 End: 10-22-2024 ambulatory Jose Garzon Facility:[facility] Start: 10-07-2024 End: 10-07-2024 ambulatory Jose Garzon Facility:[facility] Start: 08-23-2024 End: 08-23-2024 ambulatory Jose Garzon Facility:[facility] Start: 08-09-2024 End: 08-09-2024 ambulatory Jose Garzon Facility:[facility] Start: 07-01-2024 End: 07-01-2024 ambulatory Jose Garzon Facility:[facility] Start: 06-24-2024 End: 06-24-2024 ambulatory Jose Garzon Facility:[facility] Start: 06-09-2024 End: 06-09-2024 ambulatory Jose Garzon Facility:[facility] Start: 05-27-2024 End: 05-27-2024 ambulatory Jose Garzon Facility:[facility] Start: 05-24-2024 End: 05-24-2024 ambulatory Jose Garzon Facility:[facility] Start: 05-19-2024 End: 05-19-2024 ambulatory Jose Garzon Facility:[facility] Start: 05-12-2024 End: 05-12-2024 ambulatory Jose Garzon Facility:[facility] Start: 05-06-2024 End: 05-06-2024 ambulatory Jose Garzon Facility:[facility] Start: 05-05-2024 End: 05-05-2024 ambulatory Jose Garzon Facility:[facility] Start: 04-30-2024 ambulatory Jose Garzon Facilit y:[facility] Start: 04-27-2024 ambulatory Víctor German Facility :[facility] Start: 04-27-2024 End: 04-30-2024 Evaluation and management of inpatient [facility] Facility:[facility] Start: 04-26-2024 ambulatory Keven Perrinston Facility: [facility] Start: 04-21-2024 ambulatory Keven Yale Facility: [facility] Start: 04-19-2024 ambulatory [facility] Facility: [facility] Start: 04-14-2024 End: 04-14-2024 ambulatory Jose Garzon Facility:[facility] Start: 02-07-2024 Non-patient / Non-visit Dr. Armida Garzon Work Phone: [facility] Start: 02-06-2024 End: 02-07-2024 Evaluation and management of inpatient Dr. Jose Garzon Work Phone: [facility]-Medical Surgical 3 Work Phone: Start: 02-06-2024 End: 02-07-[address] Jose Garzon Work Phone: [facility] Work Phone: Start: 02-06-2024 Non-patient / Non-visit Dr. Armida Garzon Work Phone: [facility] Start: 01-28-2024 End: 01-28-[address] Jose Garzon Work Phone: [facility] Work Phone: Start: 01-28-2024 End: 01-28-[address] Jose Garzon Work Phone: [facility] Start: 01-27-2024 End: 01-27-2024 Non-patient / Non-visit Dr. Jose Garzon Work Phone: [facility] Work Phone: Start: 01-21-2024 End: 01-21-[address] Jose Garzon Work Phone: [facility] Work Phone: Start: 01-13-2024 End: 01-13-[address] Jose Garzon Work Phone: [facility] Work Phone: Start: 01-07-2024 End: 01-07-[address] Jose Garzon Work Phone: [facility] Work Phone: Start: 01-07-2024 End: 01-07-[address] Jose Garzon Work Phone: [facility] Work Phone: Start: 12-28-2023 End: 12-28-2023 Emergency department patient visit Dr. Jose Garzon Work Phone: [facility]-Emergency Department Work Phone: Start: 12-23-[address] Jose Garzon Work Phone: [facility] Start: 12-17-2023 End: 12-17-[address] Jose Garzon Work Phone: [facility] Work Phone: Start: 12-17-2023 End: 12-17-[address] Jose Garzon Work Phone: [facility] Work Phone: Start: 12-15-[address] Jose Garzon Work Phone: [facility] Start: 12-15-2023 End: 12-15-[address] Jose Garzon Work Phone: [facility] Work Phone: Start: 12-11-2023 Non-patient / Non-visit Dr. Armida Garzon Work Phone: [facility] Start: 12-04-2023 End: 12-04-[address] Jose Garzon Work Phone: [facility] Work Phone: Start: 12-04-2023 End: 12-04-[address] Jose Garzon Work Phone: [facility]-Laboratory, Specimen Work Phone: Start: 12-04-2023 End: 12-04-[address] Jose Garzon Work Phone: [facility] Work Phone: Start: 12-01-2023 End: 12-01-[address] Jose Garzon Work Phone: [facility] Work Phone: Start: 12-01-2023 End: 12-01-[address] Jose Garzon Work Phone: [facility]patient [facility] Ultrasound Work Phone: Start: 11-27-2023 End: 11-27-[address] Jose Garzon Work Phone: [facility] Work Phone: Start: 11-27-2023 End: 11-27-[address] Jose Garzon Work Phone: [facility]-Outpatient Bone Densitometry Work Phone: Start: 11-06-2023 End: 11-06-[address] Jose Garzon Work Phone: [facility] Work Phone: Start: 11-06-2023 End: 11-06-[address] Jose Garzon [facility] Start: 10-26-2023 End: 10-26-2023 Emergency department patient visit Dr. Jose Garzon Work Phone: [facility]-Emergency Department Work Phone: Start: 10-14-2023 End: 10-14-[address] Jose Garzon Work Phone: [facility]-Pulmonary Medicine [facility] Work Phone: Start: 10-11-2023 End: 10-11-2023 Emergency department patient visit [facility] Start: 07-18-2023 End: 07-18-[address] Jose Garzon Work Phone: [facility] Work Phone: Start: 04-15-2023 End: 04-15-[address] Jose Garzon Work Phone: [facility] Work Phone: Start: 04-15-2023 End: 04-15-[address] Jose Garzon Work Phone: [facility] Work Phone: Start: 04-11-2023 ambulatory Kimberlee Aparicio (Pss) [employer] [place] Comment on above: Population Health Na vigation Outreach ([place] care gap) Start: 03-27-2023 End: 03-27-[address] Jose Garzon Work Phone[facility] Work [facility]: Start: 02-25-2023 End: 02-25-[address] Jose Garzon Work Phone: [facility] Work Phone: Start: 02-25-2023 End: 02-25-[address] Jose Garzon Work Phone: [facility] Start: 02-19-2023 End: 02-19-[address] Jose Garzon Work Phone: [facility] Work Phone: Start: 02-19-2023 End: 02-19-[address] Jose Garzon Work Phone: [facility] Start: 02-13-2023 End: 02-13-[address] Jose Garzon Work Phone: [facility]-Pulmonary Medicine [facility] Start: 01-22-2023 Non-patient / Non-visit Dr. Armida Garzon Work Phone: [facility] Start: 01-21-2023 End: 01-21-[address] Jose Garzon Work Phone: [facility] Work Phone: Start: 01-21-2023 End: 01-21-[address] Jose Garzon Work Phone: [facility]-Pulmonary Services/Neurology Start: 01-07-2023 End: 01-07-[address] Jose Garzon Work Phone: [facility] Work Phone: Start: 01-07-2023 End: 01-07-[address] Jose Garzon Work Phone: [facility]-Laboratory, OP Pavilion Start: 01-02-2023 End: 01-02-[address] Jose Garzon Work Phone: [facility]-Pulmonary Medicine [facility] Start: 12-28-2022 End: 12-28-2022 Emergency department patient visit [facility]-Emergency Department Start: 09-27-2022 End: 09-27-2022 ambulatory [facility] Work Phone: Start: 09-27-2022 End: 09-27-2022 Patient encounter procedure [facility] Start: 09-19-2022 End: 09-19-2022 ambulatory [facility] Work Phone: Start: 09-19-2022 End: 09-19-2022 Patient encounter procedure [facility] Start: 08-20-2022 ambulatory Adalgisa Ybarra [facility] Comment on above: Population Health Na vigation Outreach ([place] Care Gap ) Start: 01-10-2022 End: 01-10-2022 Emergency department patient visit [facility]-Emergency Department Start: 01-08-2022 End: 01-08-2022 Patient encounter procedure [facility] Start: 10-30-2021 End: 10-30-2021 Patient encounter procedure [facility]-Outpatient Bone Densitometry Start: 10-11-2021 Patient encounter procedure [facility]Outpatient Bone Densitometry Start: 09-26-2021 Patient encounter procedure [facility]-Ultrasound, [facility] Procedures Date Procedure Procedure Detail Performing Clinician Start: 04-05-[address] Jose calderon MD Work Phone: Start: 04-04-2025 Total iron binding capacity measurement Dr. Jose Garzon MD Work Phone: Start: 03-30-2025 Total iron binding capacity measurement Dr. Jose Garzon MD Work Phone: Start: 03-30-2025 Vitamin D, 25-hydrox y measurement Dr. Jose Garzon MD Work Phone: Comment on above: Vitamin D StatusDefi ciency: <20 ng/mL (50nmol/L)Insufficiency: 20-30 ng/mL (50-75 nmol/L)Sufficiency: 30-100 ng/mL (75-250 nmol/L)Toxicity: >100 ng/mL (>250 nmol/L) Start: 12-30-[address] Jose Garzon MD Work Phone: Start: 08-23-[address] fraction Dr. Jose Garzon MD Work Phone: Start: 08-23-2024 Total iron binding capacity measurement Dr. Jose Garzon MD Work Phone: Start: 02-06-[address] Jose Garzon Work Phone: Start: 02-06-2024 Radionuclide sentine l lymph node study Dr. Jose Garzon Work Phone: Start: 01-07-2024 MRI of abdomen with contrast Dr. Jose Garzon Work Phone: Start: 12-28-2023 SARS-CoV-2, Influenz a & RSV (PCR) Dr. Jose Garzon Work Phone: Start: 12-28-2023 Plain chest X-ray Dr. Kely Garzon Work Phone: Start: 12-23-2023 Positron emission tomography with computed tomography Dr. Jose Garzon Work Phone: Start: 12-17-2023 MRI of bilateral stefania asts with contrast Dr. Jose Garzon Work Phone: Start: 12-01-2023 End: 12-01-[address] Jose orozco Work Phone: Start: 11-27-2023 Dual energy X-ray absorptiometry Dr. Jose Garzon Work Phone: Start: 11-27-2023 Screening mammography Otoniel Garzon Work Phone: Start: 11-06-2023 Plain chest X-ray Dr. Kely Garzon Work Phone: Start: 10-26-2023 Bacteria identified in Blood by Culture Dr. Jose Garzon Work Phone: Start: 10-26-2023 SARS-CoV-2, Influenz a & RSV (PCR) Dr. Jose Garzon Work Phone: Start: 10-26-2023 Plain chest X-ray Dr. Kely Garzon Work Phone: Start: 03-27-2023 X-ray of lumbosacral spine Dr. Jose Garzon Work Phone: Start: 03-27-2023 Plain x-ray of pelvi s and lower extremity Dr. Jose Garzon Work Phone: Start: 02-25-2023 US scan of thyroid Dr. Jose Garzon Work Phone: Start: 12-28-2022 Plain chest X-ray Dr. Kely Garzon Work Phone: Start: 10-30-2021 Dual energy X-ray absorptiometry Start: 10-11-2021 Screening mammography Start: 09-26-2021 Thyroid Start: 06-27-2016 Colonoscopy Adalgisa Lear Start: 05-14-2011 Mammography Adalgisa Lear History of bilateral mastectomy S/P bilateral mastectomy Dr. Jose Garzon Work Phone: History of bilateral mastectomy H/O bilateral mastectomy Dr. Jose Garzon MD Work Phone: History of bilateral mastectomy S/P bilateral mastectomy Dr. Melissa Stinson MD Plan of Treatment Date Care Activity Detail Author Start: 04-12-2025 ambulatory Facility:[facility] Start: 04-05-2025 Procedure [facility] Start: 04-05-2025 Cancer Ag 125 [Units/volume] in Serum or Plasma [facility] Start: 04-05-2025 Cancer Ag 15-3 [Presence] in Serum or Plasma [facility] Start: 04-05-2025 Cancer Ag 27-29 [Presence] in Serum or Plasma [facility] Start: 04-05-2025 Carcinoembryonic Ag [Mass/volume] in Serum or Plasma [facility] [facility] Start: 04-05-2025 [facility] Start: 02-08-2025 Patient referral [facility] Work Phone: Start: 02-07-2024 Patient discharge [facility] Start: 02-06-2024 Oxygen therapy [facility] Start: 02-06-2024 Application of intermittent pneumatic compression device [facility] Start: 02-06-2024 Following clinical pathway protocol [facility] Start: 02-06-2024 Catheterization of vein [facility] Start: 02-06-2024 Incentive spirometry [facility] Start: 02-06-2024 Maintenance of drainage tube [facility] Start: 02-06-2024 Measuring intake and output [facility] Start: 02-06-2024 Notification of physician [facility] Start: 02-06-2024 Vital signs measurements [facility] Start: 02-06-2024 [facility] Start: 02-06-2024 Ambulation without limitation [facility] Start: 02-06-2024 Admission procedure [facility] Start: 02-06-2024 Inhalation therapy procedure [facility] Start: 12-28-2023 [facility] Start: 12-23-2023 Positron emission tomography with computed tomography [facility] Start: 12-11-2023 Patient referral [facility] Work Phone: Start: 10-26-2023 Bacteria identified in Blood by Culture Blood Culture [facility] Start: 10-26-2023 [facility] Start: 10-26-2023 Blood culture [facility] Start: 06-20-2023 Influenza vaccination INFLUENZA (Season Ended) [facility] Start: 12-28-2022 Plain chest X-ray Chest PA and Lateral [facility] Start: 12-28-2022 XR Chest PA and Lateral [facility] Start: 12-28-2022 [facility] Start: 10-20-2022 ADVANCE DIRECTIVE DISCUSSION ADVANCE DIRECTIVE DISCUSSION [facility] Start: 10-20-2022 DEPRESSION ASSESSMENT DEPRESSION ASSESSMENT [facility] Start: 06-20-2022 Influenza vaccination INFLUENZA (#1) [facility] Start: 10-20-2021 ADVANCE DIRECTIVE DISCUSSION ADVANCE DIRECTIVE DISCUSSION [facility] Start: 10-20-2021 DEPRESSION ASSESSMENT DEPRESSION ASSESSMENT [facility] Start: 2021 BONE DENSITY BONE DENSITY [facility] Start: 2021 PNEUMOCOCCAL: 65+ (1 - PCV) PNEUMOCOCCAL: 65+ (1 - PCV) [facility] Start: 11-28-2018 DIABETES SCREEN DIABETES SCREEN [facility] Start: 06-27-2017 Colonoscopy COLONOSCOPY [facility] Start: 06-27-2017 COLORECTAL CANCER SCREENING COLORECTAL CANCER SCREENING [facility] Start: 2016 HEPATITIS B (1 of 3 - Risk 3-dose series) HEPATITIS B (1 of 3 - Risk 3-dose series) [facility] Start: 05-14-2012 Mammography MAMMOGRAM [facility] Start: 2006 SHINGRIX VACCINE (1 of 2) SHINGRIX VACCINE (1 of 2) [facility] Start: 2001 COLOGUARD (FIT-DNA) COLOGUARD (FIT-DNA) [facility] Start: [address] COLONOGRAPHY [facility] Start: 2001 FECAL OCCULT BLOOD FECAL OCCULT BLOOD [facility] Start: 2001 LIPID SCREEN LIPID SCREEN [facility] Start: 2001 SIGMOIDOSCOPY SIGMOIDOSCOPY [facility] Start: 1975 Urine microalbumin profile DTAP,TDAP,TD (1 - Tdap) [facility] Start: 1974 HEPATITIS C SCREENING HEPATITIS C SCREENING [facility] Start: 1974 MMR (1 of 2 - Risk 2-dose series) MMR (1 of 2 - Risk 2-dose series) [facility] Start: 1966 MENINGOCOCCAL B: Consider based on risk (1 of 4 - Increased Risk Bexsero 2-dose series) MENINGOCOCCAL B: Consider based on risk (1 of 4 - Increased Risk Bexsero 2-dose series) [facility] Start: 1957 HEPATITIS A (1 of 2 - Risk 2-dose series) HEPATITIS A (1 of 2 - Risk 2-dose series) [facility] Start: 02[birth year]12-1956 COVID-19 VACCINE (#1) COVID-19 VACCINE (#1) [facility] Measurement of respi ratory function [facility] MR Breast - bilatera l WO and W contrast IV [facility] Patient Education [facility] Work Phone: Patient referral [facility] Work Phone: Positron emission tomography with computed tomography [facility] Immunizations Immunization Date Immunization Notes Care Provider Kelsey hoffmann 02-23-2017 tetanus toxoid, redu carolyne diphtheria toxoid, and acellular pertussis vaccine, adsorbed [facility] Payers Date Payer Category Payer Medicare [id number] 2023 Self-pay [id number] 2022 Unknown [id number] 2017 Unknown LAITH LANCASTER PPO [id number] 2017-Present [phone] [address] [place] [address] PPO [id number] 2009 Private Health Insurance [facility] [id number] 1955 Unknown [id number] 2.840.1.639929.3.579.2.6 51 Medicare [id number] Unknown [id number] Unknown [id number] 2.16.840.1.268727.3.579.2.4 62 Unknown [id number] 2.16840.1.338891.3.579.2.4 62 Unknown [id number] 2.16840.1.067800.3.579.2.4 62 Unknown [id number] 2.16.840.1.804854.3.579.2.4 62 Unknown [id number] 2.16.840.1.449514.3.579.2.4 62 Unknown [id number] 2.16.840.1.089546.3.579.2.4 62 Unknown [id number] 2.16.840.1.036366.3.579.2.4 62 Unknown [id number] 2.16.840.1.800024.3.579.2.4 62 Unknown [id number] 2.16.840.1.142151.3.579.2.4 62 Unknown [id number] 2.16.840.1.022747.3.579.2.4 62 Unknown [id number] 2.16.840.1.997096.3.579.2.4 62 Unknown [id number] 2.16.840.1.643082.3.579.2.4 62 Unknown [id number] 2.16.840.1.180948.3.579.2.4 62 Unknown [id number] 2.16.840.1.423239.3.579.2.4 62 Unknown [id number] 2.16.840.1.815567.3.579.2.4 62 Unknown [id number] 2.16.840.1.807615.3.579.2.4 62 Unknown [id number] 2.16.840.1.572484.3.579.2.4 62 Unknown [id number] 2.16.840.1.989707.3.579.2.4 62 Unknown [id number] 2.16.840.1.585154.3.579.2.4 62 Unknown [id number] 2.16.840.1.199930.3.579.2.4 62 Unknown [id number] 2.16.840.1.616759.3.579.2.4 62 Unknown [id number] 2.16.840.1.876580.3.579.2.4 62 Unknown [id number] 2.16.840.1.942602.3.579.2.4 62 Unknown [id number] 2.16.840.1.747814.3.579.2.4 62 Unknown [id number] 2.16.840.1.089543.3.579.2.4 62 Unknown [id number] 2.16.840.1.519120.3.579.2.4 62 Unknown [id number] 2.16.840.1.169288.3.579.2.4 62 Unknown [id number] 2.16.840.1.473585.3.579.2.4 62 Unknown [id number] 2.16.840.1.552892.3.579.2.4 62 Unknown [id number] 2.16.840.1.263628.3.579.2.4 62 Unknown [id number] 2.16.840.1.534472.3.579.2.4 62 Unknown [id number] 2.16.840.1.878594.3.579.2.4 62 Unknown [id number] 2.16.840.1.831752.3.579.2.4 62 Unknown [id number] 2.16.840.1.943704.3.579.2.4 62 Unknown [id number] 2.16.840.1.143937.3.579.2.4 62 Unknown [id number] 2.16.840.1.391180.3.579.2.4 62 Social History Date Type Detail Facility Start: 01-10-2022 End: 01-23-2024 Tobacco smoking status CTIS Unknown if ever smoked [facility] Start: 1955 Sex Assigned At Female [facility] Start: 03-09-2018 End: 04-27-2024 Tobacco smoking status CTIS Never smoked tobacco [facility] Work Phone: Start: 03-09-2018 Tobacco use and exposure Smokeless tobacco non-user [facility] Work Phone: Start: 06-03-2022 Alcohol intake Current drinke r of alcohol (finding) [facility] Start: 06-03-2022 [facility] Start: 1955 Sex Assigned At Not on file [facility] Medical Equipment Procedure Code Equipment Code Equipment Origin al Text Equipment Identifier Dates Modified radical mastectomy with axillary lymph node dissection Ligation clip, metallic ()[id number] FDA Start: 02-06-2024 Modified radical mastectomy with axillary lymph node dissection Ligation clip, metallic ()[id number] FDA Start: 02-06-2024 Modified radical mastectomy with axillary lymph node dissection Ligation clip, metallic ()[id number] FDA Start: 02-06-2024 Goals Date Patient Goal Desired Activity /State Functional Status Date Assessment Result Facility 02-07-2024 Functional status Ambulates [facility] Work Phone: Mental Status Date Assessment Result Facility 02-07-2024 Cognitive function Voice/Name [facility] Work Phone: 10-26-2023 Cognitive function Level Of Cons ciousness Awake;Alert;Appropriate;Follow s Commands [facility] Work Phone: Clinical Notes 08-20-2022 to 12-30-2024 Note Date & Type Note Facility 12-30-2024 Evaluation note Diagnosis Onset Date Resolution Malignant neoplasm of both breasts, estrogen receptor positive acute December 30 12:23pm Breast cancer, left breast acute February 08, 2025 1:04pm Breast cancer, right breast acute February 08, 2025 1:04pm S/P bilateral mastectomy acute February 08, 2025 1:04pm Breast cancer, right breast acute February 22, 2025 9: 30am Malignant neoplasm of both breasts, estrogen receptor positive acute April 05 2:19pm [facility] Work Phone: 1(488) 210-240503-13-2025 Evaluation note* Diagnosis Onset Date Resolution Status Admit Date Malignant neoplasm of both breasts, estrogen receptor positive chronic December 30, 2024 12:23pm Breast cancer, left breast acute February 08, 2025 1:04pm Breast cancer, right breast acute February 08, 2025 1:04pm S/P bilateral mastectomy acute February 08, 2025 1:04pm Breast cancer, right breast acute February 22, 2025 9:30am Malignant neoplasm of both breasts, estrogen receptor positive chronic April 05, 2025 2:19pm [facility] Work Phone: 1(367) 539-456807-12-2024 [facility]04-20-2024 Discharge summary Author Melissa Stinson [facility] February 07, 2024 9:03am Note Date/Time February 07, 2024 9:0 0am [facility] Health System Medical Records Department [address] [place] [address] Instructions for Home/Discharge Instructions 02/07/24 0859 MR#: [id number] Acct: [id number] Name: MARY QUINTERO Rep #:[id number] : 1955 68 From: Melissa Stinson MD PCP: Dr. Jose Garzon MD Status:AD M [facility] Discharge Instructions Procedure Breast Surgery Diet Discharge [...] With: Melissa Stinson MD When: Please call [phone] for an appointment to be seen Friday 02/09 for JPremoval Test Results: Test results from this visit will be discussed in further detail at your follow- up appointment, if applicable. Discharge Plan Admission Admit [...] CC: Dr. Jose Garzon MD ~ Signed [facility] Work Phone: 1(542) 805-428404-20-2024 Progress note Author [facility] February 07, 2024 8:59am Note Date/Time February 07, 2024 7:5 4am [facility] Health System Medical Records Department [address] [place] [address] Progress Note - Surgery 02/07/24 0754 MR#: [id number] Acct: [id number] Name: MARY QUINTERO Rep #:[id number] : 1955 68 From: Melissa Stinson MD PCP: Dr. Jose Garzon MD Status:AD M [facility] Location: ID3 [id number] Subjective Subjective Patient to get some morphine during the night for pain control. Otherwise patient is doing well Chase Carter to be removed this morning Objective Data [...] 82.0 H, Lymph % (Auto) 11.4 L, [place] % (Auto) 5.8, Eos % (Auto) 0.0, [...] Calcium 8.7 Radiography Diagnostic Testing: Radiology Impression [place] Node 02/06/24 08:16 IMPRESSION: 1.2 mCi of technetium level sulfur colloid was injected subcutaneously in 4 equal aliquots in the periareolar region for sentinel node imaging. Electronically Signed: Duc Hayes MD at 9:51 EDT , [place] Node 02/06/24 08:16 IMPRESSION: 1.2 mCi of [...] sure pain is controlled prior to DC. DC Stone make sure patient can void MAIRA teaching Melissa Stinson M.D. Pager: [phone] [facility] [address] [place] [address], [address] [place] [address] Office: [phone] 02/07/24 0859 <Electronically signed by Melissa Stinson MD> Cosigner Signature (if applicable): CC: ~ Signed [facility] Work Phone: 1(204) 266-776804-20-2024 Procedure [facility] 02-06-2024 History and physical note Author Melissa Stinson [facility] February 06, 2024 8:48am Note Date/Time February 06, 2024 8:4 7am [facility] Health System Medical Records Department [address] [place] [address] History & Physical Exam 02/06/24 0847 MR#: [id number] Acct: [id number] Name: MAYR QUINTERO Rep #:[id number] : 1955 68 From: Melissa Stinson MD PCP: Dr. Jose Garzon MD Status:[facility] Location: [place] [address] History and Physical Date of Admission: 02/06/24 Date of Service: 01/21/24 MR#: [id number] Acct: [id number] Name: MARY QUINTERO Rep #: [id number] : 1955 Provider: Dr. Melissa Stinson MD Age/Sex: 68/F Location: [facility] Status: Signed Intake Vital Signs 01/12/2415:02 01/20/2413:36 [...] cooperative, healthy appearing and no acute distress HENWA Head: normal to inspection Chest Other: Breast [...] no further questions. Melissa Stinson M.D. Pager: [phone] [facility] [address] [place] [address], [address] [place] [address] Office: [phone] Coding Level of Care Code Off vis,est,level [...] of exam. 02/06/24 0848<Electronically signed by Melissa Stinson MD> Cosigner Signature (if applicable): cc: Dr. Jose Garzon MD; Dr. Melissa Stinson MD ~* Signed [facility] Work Phone: 1(103) 429-249606-23-2023 NotePatient Outreach (NETNAV) MARY COLON Nika ([id number]) 1955 F Date Time Provider Department 04/11/23 KIMBERLEE ZUNIGA ([facility]) NETNAV During your visit today, we recorded [...] Scheduling/Wellness visits Payer: Payor: LAITH / Plan: [employer] PPO / Product Type: PPO / Care [...] 01/22/2007 Encounter Status:Closed by KIMBERLEE ZUNIGA on 04/11/23[facility] 04-11-2023 NoteHNO ID: [id number] Author: Kimberlee Zuniga Service: ? Author Type: [...] Signature: Kimberlee Zuniga April 11, 2023 10:08 [facility]06-23-2023 History of Present illness Narrative* Kimberlee [...] Scheduling/Wellness visits Payer: Payor: LAITH / Plan: [employer] PPO / Product Type: PPO / Care [...] 11, 2023 10:08 AM [facility]23 Procedure [facility]11-01-2022 NoteHNO ID: [id number] Author: Adalgisa Fleming Population Health Navigator Service: [...] Scheduling/Wellness visits Payer: Payor: LAITH / Plan: [employer] PPO / Product Type: PPO / Care [...] Population Health Navigator August 20, 2022 12:16 [facility]11-01-2022 NotePatient Outreach (EARLV) MARY COLON ([id number]) 1955 F Date Time Provider Department 08/20/22 [...] Visit: Population Health Navigation Outreach [[id number]] Cmt: [place] Care Gap Prescriptions as of 08/20/2022 - [...] by BERNADETTE POPULATION HEALTH NAVIGATORADALGISA on 08/20/22 [facility]11-01-2022 History of Present illness Narrative* Adalgisa Fleming [...] Scheduling/Wellness visits Payer: Payor: LAITH / Plan: [employer] PPO / Product Type: PPO / Care [...] 20, 2022 12:16 PM documented in this encounterCleveland ClinicDischarge summary Author Jadon Grant [facility] December 28, 2023 11:11am Note Date/Time December 28, 2023 10: 14am [facility] System Medical Records Department [address] [place] [address] Emergency Department Summary 12/28/23 MR#: [id number] Acct: [id number] Name: MARY QUINTERO Rep #:[id number] : 1955 68 From: Jadon Grant MD [...] thoughts Endocrine Endocrinology: Denies polydipsia or polyuria [facility] Medical History Asthma HTN (hypertension) Malignant neoplasm [...] your Primary Care Provider. Call [facility] ([phone]) or report to the closest Emergency Room. Call 911 if necessary. 12/28/23 1111 <Electronically signed by Jadon Grant MD> Cosigner Signature (if applicable): CC: Dr. Jose Garzon MD ~ Signed [facility] Work Phone: Evaluation noteNo assessment information available [facility] Work Phone: Evaluation note* Diagnosis Onset Date Resolution Status Asthma acute Cough acute [facility] Work Phone: Evaluation note* Diagnosis Onset Date Resolution Status Cough acute Asthma chronic Asthma chronic [facility] Work Phone: Evaluation note* Diagnosis Onset Date Resolution Status Asthma chronic [facility] Work Phone: Evaluation note* Diagnosis Onset Date Resolution Status Asthma chronic Breast mass, right acute Left breast mass acute Mass of right axilla acute [facility] Work Phone: Evaluation note* Diagnosis Onset Date Resolution Status Asthma chronic Breast mass, right acute Left breast mass acute Mass of right axilla acute Malignant neoplasm of both b reasts, estrogen receptor positive acute [facility] Work Phone: Evaluation note* Diagnosis Onset Date [...] positive acute Mass of right axilla acute [facility] Work Phone: Evaluation note* Diagnosis Onset Date [...] axilla acute S/P bilateral mastectomy acu te [facility] Work Phone: Hospital Discharge instructions Additional Instructions Take the medication as prescribed. You need to follow-up with pulmonology. That would be Dr. Hanks. Return for any worsening symptoms.[facility] Work Phone: Hospital Discharge instructions Additional Instructions You received your first dose of prednisone in the ER, so the prescription can be [facility] tomorrow [facility] Work [facility]: Chief Complaint and Reason [...] Mass of right axilla S/P bilateral mastectomy Chief Complaint Admit Date 4 MO - LABS December 30, 2024 12: 23pm 6 M BREAST CHECK February 08, 2025 1:0 4pm 4 MONTH BREAST February 22, 2025 9:30am [facility] March 30, 2025 9:29 am 12WKS NO LABS TRANSFER TO [facility] March 2:19pm BREAST April 05, 2025 3:00 pm Reason for Visit Admit Date Malignant neoplasm of both b reasts, estrogen receptor positive December 30, 2024 12:23pm Breast cancer, left breast February 08, 2 025 1:04pm Breast cancer, right breast February 08, 2025 1:04pm S/P bilateral mastectomy February 08 1:04pm Breast cancer, right breast February 22 9:30am Malignant neoplasm of both b reasts, estrogen receptor positive April 05, 2025 2:19pm Advance Directives No Advanced Directives Records Found Advance Directive Response Recorded Date/ Time Living Will No January 10, 2022 8:56pm Power of Lumber Hacker No January 10 8:56pm Advance Directive Response Recorded Date/ Time Living Will No January 10, 2022 7:56pm Power of Lumber Hacker No January 10 7:56pm Advance Directive Response Recorded Date/ Time Name of Medical Power of Lumber Hacker Raven December 28, 2022 4:38pm Living Will Yes December 28, 2022 4:38pm Power of Lumber Hacker Yes December 28 4:38pm Advance Directive Response Recorded Date/ Time Name of Medical Power of Lumber Hacker Raven December 28, 2022 5:38pm Living Will Yes December 28, 2022 5:38pm Power of Lumber Hacker Yes December 28 5:38pm Advance Directive Response Recorded Date/ Time Name of Medical Power of Lumber Hacker Raven Nunez October 26, 2023 6:41am Living Will Yes October 26 6:41am Power of Lumber Hacker Yes October 26 6:41am Advance Directive Response Recorded Date/ Time Name of Medical Power of Lumber Hacker Raven Nunez October 26, 2023 7:41am Name of Medical Power of Lumber Hacker Raven Nunez December 28, 2023 8:58am Living Will Yes December 28, 2023 8:58am Power of Lumber Hacker Yes December 27 8:58am Advance Directive Response Recorded Date/ Time Name of Medical Power of Lumber Hacker Raven Nunez October 26, 2023 7:41am Name of Medical Power of Lumber Hacker Raven Nunez December 28, 2023 8:58am Living Will Yes January 23, 2024 9:06am Power of Lumber Hacker Yes January 22 9:06am Advance Directive Response Recorded Date/ Time Name of Medical Power of Lumber Hacker Raven Nunez October 26, 2023 7:41am Name of Medical Power of Lumber Hacker Raven Nunez December 28, 2023 8:58am Name of Medical Power of Lumber Hacker RAVENKERRY KOHLIBN E February 06, 2024 4:11pm Living Will Yes February 06, 2024 4:11pm Power of Lumber Hacker Yes February 05 4:11pm Advance Directive Response Recorded Date/ Time Living Will Yes April 27, 2024 1 0:29pm Do you have a Healthcare Power of Lumber Hacker? Yes April 27, 2024 10:29pm Family History No Family History Records Found [...] or prosecute any alcohol or drug abuse patient.[facility] HospitalIn the event this information is protected by the Federal Confidentiality of Alcohol and Drug Abuse Patient Records regulations: The Federal rules restrict any use of the information to criminally investigate or prosecute any alcohol or drug abuse patient.[facility] Reason for Visit (unrecogniz ed section and content) Reason Onset Date Comments Population Health Navigation Outreach 08/20/2022 [place] Care [facility] Reason Onset Date Comments Population Health Navigation Outreach 04/11/2023 [place] care gap Care Teams (unrecognized sec tion and content) 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 Jose Garzon MD Primary Care Provider Active Dr. Harrison Contreras DO Emergency Provider Active Team Status: Inactive Member Role Status Dates Dr. Jose Garzon MD Primary Care Provider Active Dr. Harrison Contreras DO Attending Provider, Emergency P charlie Active Team Status: Active Member Role Status [...] Admit Provider, Attending Provider, Referring Provider Active Team Status: Active Member Role Status Dates Dr. Jose Garzon MD Primary Care Provider Active Team Status: Inactive Member Role Status Dates Dr. Jose Garzon MD Primary Care Provider Active Start: December 30, 2024 End: December 30, 2024 Dr. Jose Garzon MD Referring Provider Active Start: December 30, 2024 End: December 30, 2024 Dr. Dillan Cristina MD Attending Provider Active Start: December 30, 2024 End: December 30, 2024 Team Status: Inactive Member Role Status Dates Dr. Jose Garzon MD Primary Care Provider Active Start: February 08, 2025 End: February 08, 2025 Dr. Jose Garzon MD Referring Provider Active Start: February 08, 2025 End: February 08, 2025 Dr. Melissa Stinson MD Attending Provider Active Start: February 08, 2025 End: February 08, 2025 Team Status: Inactive Member Role Status Dates Dr. Jose Garzon MD Primary Care Provider Active Start: February 22, 2025 End: February 22, 2025 Dr. Jose Garzon MD Referring Provider Active Start: February 22, 2025 End: February 22, 2025 Dr. Keven Joshi DO Attending Provider Active Start: February 22, 2025 End: February 22, 2025 Team Status: Active Member Role Status Dates Dr. Jose Garzon MD Primary Care Provider Active Start: March 30, 2025 Dr. Jose Garzon MD Attending Provider Active Start: March 30, 2025 Dr. Jose Garzon MD Referring Provider Active Start: March 30, 2025 Team Status: Active Member Role Status Dates Dr. Jose Garzon MD Primary Care Provider Active Start: April 04, 2025 Dr. Jose Garzon MD Attending Provider Active Start: April 04, 2025 Dr. Jose Garzon MD Referring Provider Active Start: April 04, 2025 Team Status: Inactive Member Role Status Dates Dr. Jose Garzon MD Primary Care Provider Active Start: April 05, 2025 End: April 05, 2025 Dr. Jose Garzon MD Referring Provider Active Start: April 05, 2025 End: April 05, 2025 Dr. Juventino Rodriguez MD Attending Provider Active S tart: April 05, 2025 End: April 05, 2025 Team Status: Active Member Role Status Dates Dr. Jose Garzon MD Primary Care Provider Active Start: April 05, 2025 Dr. Dillan Cristina MD Attending Provider Active Start: April 05, 2025 Dr. Dillan Cristina MD Referring Provider Active Start: April 05, 2025 Team Status: Inactive Member Role Status Dates Dr. Jose Garzon MD Primary Care Provider Active Start: March 30, 2025 End: March 30, 2025 Dr. Jose Garzon MD Attending Provider Active Start: March 30, 2025 End: March 30, 2025 Dr. Jose Garzon MD Referring Provider Active Start: March 30, 2025 End: March 30, 2025 Team Status: Inactive Member Role Status Dates Dr. Jose Garzon MD Primary Care Provider Active Start: April 04, 2025 End: April 04, 2025 Dr. Jose Garzon MD Attending Provider Active Start: April 04, 2025 End: April 04, 2025 Dr. Jose Garzon MD Referring Provider Active Start: April 04, 2025 End: April 04, 2025 INFORMATION SOURCE (unrecogn ized section and content) DATE CREATED AUTHOR 04/12/2023 [facility] DATE CREATED AUTHOR AUTHOR'S ORGANIZ ATION 10/12/2023 [facility] DATE CREATED AUTHOR AUTHOR'S ORGANIZ ATION 04/09/2025 [facility] FOR RECORDS PERTAINING TO PATIENTS WHO ARE [...] BE BASED ON THE PRIMARY CLINICAL RECORDS. [facility] provides no warranty or guarantee of the accuracy or completeness of information in this document.
== END | disposition home or self-care (01) ==
LOC: PSN 06:49
PROVIDERS: PCP Family Medicine; Referring Provider Nurse Practitioner Family; Visit Provider Nurse Practitioner Family
DX: J45.40 Moderate persistent asthma, uncomplicated (principal)
CPT/HCPCS: 94060; 94726; 94729

== ENCOUNTER → 2025-07-26 | Outpatient (CLI) | payer MEDICARE, SELFPAY ==
[2025-07-26 10:08] LABS: Hematocrit 38.6 % (37-47); Hemoglobin 12.8 g/dL (12.0-15.0); Immature Granulocytes Count 0.030 X10^3/uL (0.0-0.0); Mean Corp Hgb Conc 33.2 g/dL (32-36); Mean Corpuscular Volume 91.0 fL (81-99); Mean Platelet Vol. 9.6 fl (6.2-12.0); NRBC Flagged by Analyzer 0 % (0-5); Platelet Count 383 K/mm3 (150-450); RBC Distribution Width CV 13.8 % (11.6-14.6); RBC Distribution Width SD 46.1 fl (35.1-43.9); Red Blood Count 4.24 M/mm3 (4.2-5.4); White Blood Count 7.5 K/mm3 (4.4-11.0)
[2025-07-26 10:42] LABS: Ferritin 21 ng/mL (22-378); Iron 75 ug/dL (50-170); Iron Binding Capacity,Total 344 ug/dL (250-450); Iron Binding Capacity,Unsat 269 ug/dL (228-428); Vitamin B12 533 pg/mL (180-914)
== END | disposition home or self-care (01) ==
LOC: MTLAB 07:41
PROVIDERS: PCP Family Medicine; Referring Provider Family Medicine; Visit Provider Family Medicine
DX: D64.9 Anemia, unspecified (principal)
CPT/HCPCS: 36415; 82607; 82728; 83540; 83550; 85025

== ENCOUNTER 2025-07-27 10:43 | Outpatient (CLI) | payer MEDICARE, SELFPAY ==
[2025-07-27 10:53] LABS: Mucous, Urine 0 SEEN /hpf (<or=2+)
[2025-07-27 12:31] LABS: Hematocrit 38.0 % (37-47); Hemoglobin 12.7 g/dL (12.0-15.0); Immature Granulocytes Count 0.030 X10^3/uL (0.0-0.0); Mean Corp Hgb Conc 33.4 g/dL (32-36); Mean Corpuscular Volume 90.9 fL (81-99); Mean Platelet Vol. 10.1 fl (6.2-12.0); NRBC Flagged by Analyzer 0 % (0-5); Platelet Count 367 K/mm3 (150-450); RBC Distribution Width CV 13.9 % (11.6-14.6); RBC Distribution Width SD 46.8 fl (35.1-43.9); Red Blood Count 4.18 M/mm3 (4.2-5.4); White Blood Count 7.6 K/mm3 (4.4-11.0)
[2025-07-27 14:18] LABS: Chloride 104 mmol/L (98-108); Potassium 3.9 mmol/L (3.3-5.1)
[2025-07-27 15:46] LABS: Color, Urine Yellow (Yellow); Glucose, Dipstick Normal (Normal); Ketone-Dipstick Negative (Negative); Leukocyte Esterase-Dipstick 25 /ul (Negative); Nitrite-Dipstick Positive (Negative); Occult Blood-Urine 150 /ul (Negative); Protein-Dipstick 15 mg/dl (Negative); Specific Gravity, Urine 1.010 (1.002-1.030); Urine Bilirubin Dipstick Negative (Negative)
[2025-07-27 15:58] LABS: AST(SGOT) 22 U/L (<=31); Alanine Aminotransfer ALT/SGPT 23 U/L (<=34); Albumin, Serum 4.2 g/dL (3.4-4.8); Alkaline Phosphatase 98 U/L (35-104); Anion Gap 15 (5-15); BUN 12 mg/dL (4-19); BUN/Creat Ratio 19.2 RATIO (10-20); Calcium,Total 9.6 mg/dL (7.6-11.0); Carbon Dioxide 20.6 mmol/L (21.0-32.0); Cholesterol 169 mg/dL (<=200); Globulin 2.6 g/dL (2.2-4.2); Glucose 106 mg/dL (70-99); Low Density Lipoprotein Calc. 88 mg/dL; Magnesium 2.1 mg/dL (1.5-2.2); Triglycerides 147 mg/dL; Very Low Density Lipoprotein 29 mg/dL (5-40); Vitamin D,25 Hydroxy 60.6 ng/mL (30-100); cholesterol:hdl ratio screen 3.25
[2025-07-27 16:04] LABS: Red Blood Cells-Urine 0-5 SEEN /hpf (0-5); Squamous Epithelial Cells - UA 0-5 SEEN /hpf (5-10)
== END 2025-07-27 23:59 | disposition home or self-care (01) ==
LOC: MFPLAB 10:43
PROVIDERS: PCP Family Medicine; Visit Provider Family Medicine
DX: I10 Essential (primary) hypertension (principal); E78.00 Pure hypercholesterolemia, unspecified; R73.01 Impaired fasting glucose; M81.0 Age-related osteoporosis without current pathological fracture
CPT/HCPCS: 36415; 80053; 80061; 81001; 82306; 83036; 83735; 85025